=== PATIENT | female | born 1950 | race Caucasian/White ===

== ENCOUNTER → 2018-05-05 | Outpatient (CLI) | payer BC, MEDICARE | LOC: M ADAMS 08:18 | DX: I50.42 Chronic combined systolic (congestive) and diastolic (congestive) heart failure (principal); I48.0 Paroxysmal atrial fibrillation; E11.9 Type 2 diabetes mellitus without complications; R25.2 Cramp and spasm; Z79.899 Other long term (current) drug therapy | CPT/HCPCS: 83735 ==

== ENCOUNTER → 2018-05-05 | Outpatient (REF) | payer MEDICARE ==
[2018-05-05 12:40] LABS: BASO % 0.5 % (0.0-1.0); EOS # 0.5 10^3/uL (0.0-0.50); EOS % 7.2 % (0.0-3.0); HEMATOCRIT 36.2 % (36.0-47.0); HEMOGLOBIN 11.7 g/dl (12.0-15.5); IMMATURE GRANULOCYTE # 0.1 10^3/uL (0-0); IMMATURE GRANULOCYTE % 1.1 % (0-3.0); LYMPH # 0.9 10^3/uL (1.5-4.5); LYMPH % 13.8 % (24.0-44.0); MEAN CORPUSCULAR HEMOGLOBIN 31.2 pg (27.0-33.0); MEAN CORPUSCULAR HGB CONC 32.3 g/dl (32.0-36.5); MEAN CORPUSCULAR VOLUME 96.5 fl (80.0-96.0); MONO # 0.7 10^3/uL (0.0-0.8); MONO % 10.8 % (0.0-5.0); NEUTROPHILS # 4.3 10^3/uL (1.8-7.7); NEUTROPHILS % 66.6 % (36.0-66.0); PLATELET COUNT, AUTOMATED 203 10^3/uL (150-450); RED BLOOD COUNT 3.75 10^6/uL (4.00-5.40); RED CELL DISTRIBUTION WIDTH 14.9 % (11.5-14.5); WHITE BLOOD COUNT 6.4 10^3/uL (4.0-10.0)
[2018-05-05 12:53] LABS: TOTAL 25(OH) VITAMIN D 11.4 NG/ML (30.0-100.0)
[2018-05-05 13:19] LABS: ALBUMIN 3.2 GM/DL (3.2-5.2); ALBUMIN/GLOBULIN RATIO 0.64 (1.00-1.93); ALKALINE PHOSPHATASE 266 U/L (45-117); ALT/SGPT 42 U/L (12-78); ANION GAP 12 MEQ/L (8-16); AST/SGOT 73 U/L (7-37); BILIRUBIN,TOTAL 0.5 MG/DL (0.2-1.0); BLOOD UREA NITROGEN 66 MG/DL (7-18); CALCIUM LEVEL 10.5 MG/DL (8.8-10.2); CARBON DIOXIDE LEVEL 23 MEQ/L (21-32); CHLORIDE LEVEL 109 MEQ/L (98-107); CREATININE FOR GFR 2.15 MG/DL (0.55-1.30); FREE T4 1.06 NG/DL (0.76-1.46); GLOMERULAR FILTRATION RATE 24.3 (>45); GLUCOSE, FASTING 121 MG/DL (70-100); NT-PRO BNP 510 PG/ML (<125); POTASSIUM SERUM 4.2 MEQ/L (3.5-5.1); SODIUM LEVEL 144 MEQ/L (136-145); TOTAL PROTEIN 8.2 GM/DL (6.4-8.2)
[2018-05-05 15:37] LABS: ESTIMATED AVERAGE GLUCOSE 114 MG/DL (60-110); HEMOGLOBIN A1c 5.6 %
[2018-05-05 20:11] LABS: APPEARANCE, URINE HAZY (CLEAR); BACTERIA, URINE AUTO 1+ (NEGATIVE); BILIRUBIN, URINE AUTO NEGATIVE (NEGATIVE); BLOOD, URINE BLOOD 1+ (NEGATIVE); COLOR, URINE YELLOW (YELLOW); GLUCOSE, URINE (UA) AUTO NEGATIVE (NEGATIVE); KETONE, URINE AUTO NEGATIVE (NEGATIVE); LEUKOCYTE ESTERASE, URINE AUTO 1+ (NEGATIVE); MUCUS, URINE SMALL (NEGATIVE); NITRITE, URINE AUTO NEGATIVE (NEGATIVE); PROTEIN, URINE AUTO 2+ mg/dL (NEGATIVE); RBC, URINE AUTO 1 /HPF (0-3); SPECIFIC GRAVITY URINE AUTO 1.013 (1.002-1.035); SQUAMOUS EPITHELIAL CELL UR AU 1 /HPF (0-6); UROBILINOGEN, URINE AUTO 0.2 mg/dL (0.0-2.0); WBC, URINE AUTO 48 /HPF (0-3)
== END ==
LOC: M SFHCADAM 08:24
DX: R25.2 Cramp and spasm (principal); E11.9 Type 2 diabetes mellitus without complications; I50.42 Chronic combined systolic (congestive) and diastolic (congestive) heart failure; I48.0 Paroxysmal atrial fibrillation

== ENCOUNTER → 2018-06-01 | Outpatient (REF) | payer MEDICARE ==
[2018-06-01 20:21] LABS: INR 2.62; PROTHROMBIN TIME 28.6 SECONDS (12.1-14.4)
== END ==
LOC: M LAB REF 19:05
DX: I48.0 Paroxysmal atrial fibrillation (principal)
CPT/HCPCS: 85610

== ENCOUNTER → 2018-06-28 | Outpatient (CLI) | payer MEDICARE | LOC: M ADAMS 15:59 | DX: K80.00 Calculus of gallbladder with acute cholecystitis without obstruction (principal); K43.9 Ventral hernia without obstruction or gangrene | CPT/HCPCS: 74018 ==

== ENCOUNTER 2018-06-29 12:45 | Emergency (ER) | payer MEDICARE ==
[2018-06-29 14:19] LABS: BASO % 0.3 % (0.0-1.0); EOS # 0.4 10^3/uL (0.0-0.50); EOS % 5.7 % (0.0-3.0); HEMATOCRIT 31.7 % (36.0-47.0); HEMOGLOBIN 10.3 g/dl (12.0-15.5); IMMATURE GRANULOCYTE % 0.6 % (0-3.0); LYMPH # 0.9 10^3/uL (1.5-4.5); LYMPH % 13.7 % (24.0-44.0); MEAN CORPUSCULAR HEMOGLOBIN 30.7 pg (27.0-33.0); MEAN CORPUSCULAR HGB CONC 32.5 g/dl (32.0-36.5); MEAN CORPUSCULAR VOLUME 94.3 fl (80.0-96.0); MONO # 0.6 10^3/uL (0.0-0.8); MONO % 9.4 % (0.0-5.0); NEUTROPHILS # 4.5 10^3/uL (1.8-7.7); NEUTROPHILS % 70.3 % (36.0-66.0); PLATELET COUNT, AUTOMATED 173 10^3/uL (150-450); RED BLOOD COUNT 3.36 10^6/uL (4.00-5.40); RED CELL DISTRIBUTION WIDTH 14.6 % (11.5-14.5); WHITE BLOOD COUNT 6.4 10^3/uL (4.0-10.0)
[2018-06-29] MEDS: NS 1,000 ML IV (14:32)
[2018-06-29] MEDS: ONDANSETRON 4MG/2ML VIAL (J2405) IV (14:32)
[2018-06-29] MEDS: MORPHINE 4 MG/ML 1ML VIAL/SYRINGE (J2270) IV (14:33)
[2018-06-29 14:39] LABS: PROTHROMBIN TIME 54.2 SECONDS (12.1-14.4)
[2018-06-29 15:03] LABS: LACTIC ACID SEPSIS PROTOCOL 1.9 MMOL/L (0.4-2.0)
[2018-06-29 15:10] LABS: INR 5.87
[2018-06-29 15:54] LABS: ALBUMIN 2.9 GM/DL (3.2-5.2); ALBUMIN/GLOBULIN RATIO 0.63 (1.00-1.93); ALKALINE PHOSPHATASE 296 U/L (45-117); ALT/SGPT 43 U/L (12-78); ANION GAP 10 MEQ/L (8-16); AST/SGOT 58 U/L (7-37); BILIRUBIN,DIRECT 0.2 MG/DL (0.0-0.2); BILIRUBIN,TOTAL 0.4 MG/DL (0.2-1.0); BLOOD UREA NITROGEN 74 MG/DL (7-18); CALCIUM LEVEL 9.8 MG/DL (8.8-10.2); CARBON DIOXIDE LEVEL 21 MEQ/L (21-32); CHLORIDE LEVEL 114 MEQ/L (98-107); CREATININE FOR GFR 2.52 MG/DL (0.55-1.30); GLOMERULAR FILTRATION RATE 20.3 (>45); GLUCOSE, FASTING 143 MG/DL (70-100); LIPASE 687 U/L (73-393); POTASSIUM SERUM 3.7 MEQ/L (3.5-5.1); SODIUM LEVEL 145 MEQ/L (136-145); TOTAL PROTEIN 7.5 GM/DL (6.4-8.2)
== END 2018-06-29 17:58 | disposition home or self-care (01) ==
LOC: M ED 12:45
DX: K80.20 Calculus of gallbladder without cholecystitis without obstruction (principal); R10.9 Unspecified abdominal pain; K43.2 Incisional hernia without obstruction or gangrene; E11.9 Type 2 diabetes mellitus without complications; J45.909 Unspecified asthma, uncomplicated; N18.4 Chronic kidney disease, stage 4 (severe); Z88.7 Allergy status to serum and vaccine; Z91.048 Other nonmedicinal substance allergy status; Z91.041 Radiographic dye allergy status; Z79.899 Other long term (current) drug therapy; Z79.82 Long term (current) use of aspirin; Z79.4 Long term (current) use of insulin
CPT/HCPCS: J2270

== ENCOUNTER 2018-07-06 17:53 | Inpatient (IN) | payer MEDICARE ==
[2018-07-06] MEDS: NS 500 ML IV (18:35)
[2018-07-06 18:36] LABS: BASO # 0.1 10^3/uL (0.0-0.2); BASO % 0.5 % (0.0-1.0); EOS # 0.6 10^3/uL (0.0-0.50); EOS % 5.4 % (0.0-3.0); HEMATOCRIT 25.2 % (36.0-47.0); HEMOGLOBIN 8.1 g/dl (12.0-15.5); IMMATURE GRANULOCYTE % 4.4 % (0-3.0); LYMPH # 1.4 10^3/uL (1.5-4.5); LYMPH % 12.6 % (24.0-44.0); MEAN CORPUSCULAR HEMOGLOBIN 30.7 pg (27.0-33.0); MEAN CORPUSCULAR HGB CONC 32.1 g/dl (32.0-36.5); MEAN CORPUSCULAR VOLUME 95.5 fl (80.0-96.0); MONO % 9.2 % (0.0-5.0); NEUTROPHILS # 7.7 10^3/uL (1.8-7.7); NEUTROPHILS % 67.9 % (36.0-66.0); PLATELET COUNT, AUTOMATED 224 10^3/uL (150-450); RED BLOOD COUNT 2.64 10^6/uL (4.00-5.40); RED CELL DISTRIBUTION WIDTH 15.6 % (11.5-14.5); WHITE BLOOD COUNT 11.3 10^3/uL (4.0-10.0)
[2018-07-06 18:44] LABS: INR 2.56; PROTHROMBIN TIME 28.1 SECONDS (12.1-14.4)
[2018-07-06 18:45] LABS: PARTIAL THROMBOPLASTIN TIME 56.2 SECONDS (25.4-37.6)
[2018-07-06 18:59] LABS: LACTIC ACID SEPSIS PROTOCOL 1.1 MMOL/L (0.4-2.0)
[2018-07-06] MEDS: PHYTONADIONE 10MG/ML INJECTION (J3430) SC (19:50)
[2018-07-06 20:42] LABS: ALT/SGPT 50 U/L (12-78); BILIRUBIN,TOTAL 0.3 MG/DL (0.2-1.0); CALCIUM LEVEL 9.1 MG/DL (8.8-10.2); CARBON DIOXIDE LEVEL 22 MEQ/L (21-32); GLUCOSE, FASTING 98 MG/DL (70-100); SODIUM LEVEL 144 MEQ/L (136-145); TOTAL PROTEIN 7.3 GM/DL (6.4-8.2); TROPONIN I < 0.02 NG/ML (< 0.10)
[2018-07-06] MEDS ORDERED: ONDANSETRON 4MG/2ML VIAL (J2405) IV (20:45)
[2018-07-06 20:57] LABS: BLOOD UREA NITROGEN 90 MG/DL (7-18); CHLORIDE LEVEL 114 MEQ/L (98-107); CREATININE FOR GFR 2.24 MG/DL (0.55-1.30); GLOMERULAR FILTRATION RATE 23.2 (>45)
[2018-07-06 20:58] LABS: ANION GAP 8 MEQ/L (8-16); AST/SGOT 101 U/L (7-37); CPK CREATINE PHOSPHOKINASE 156 U/L (26-192); MB/CK RELATIVE INDEX 0.12 (< OR =4)
[2018-07-06 20:59] LABS: ALBUMIN 2.9 GM/DL (3.2-5.2); ALBUMIN/GLOBULIN RATIO 0.66 (1.00-1.93); ALKALINE PHOSPHATASE 279 U/L (45-117); AMYLASE 122 U/L (25-115); BILIRUBIN,DIRECT < 0.1 MG/DL (0.0-0.2); LIPASE 1031 U/L (73-393)
[2018-07-06] MEDS: GABAPENTIN 300 MG CAP PO (22:56)
[2018-07-06] MEDS: CARVedilol 6.25 MG TAB PO (22:57)
[2018-07-06] MEDS: ACETAMINOPHEN 500 MG TAB PO (22:57)
[2018-07-06] MEDS: NS 1,000 ML IV (22:58)
[2018-07-06] MEDS: PANTOPRAZOLE 40MG INJ (PROTONIX) (C9113) IV (22:58)
[2018-07-06 23:20] LABS: TYPE AND SCREEN 1 1
[2018-07-07] MEDS ORDERED: FLUBLOK(EGG FREE)(QUAD)INFLUENZA VACC 0.5ML SYRINGE (90682)18YRS&OLDER IM (03:00)
[2018-07-07 04:54] LABS: HEMATOCRIT 21.5 % (36.0-47.0); MEAN CORPUSCULAR HEMOGLOBIN 30.2 pg (27.0-33.0); MEAN CORPUSCULAR HGB CONC 31.2 g/dl (32.0-36.5); MEAN CORPUSCULAR VOLUME 96.8 fl (80.0-96.0); PLATELET COUNT, AUTOMATED 186 10^3/uL (150-450); RED BLOOD COUNT 2.22 10^6/uL (4.00-5.40); RED CELL DISTRIBUTION WIDTH 15.7 % (11.5-14.5); WHITE BLOOD COUNT 9.9 10^3/uL (4.0-10.0)
[2018-07-07 04:57] LABS: HEMOGLOBIN 6.7 g/dl (12.0-15.5)
[2018-07-07 05:07] LABS: INR 1.86; PROTHROMBIN TIME 21.8 SECONDS (12.1-14.4)
[2018-07-07 05:10] LABS: ANION GAP 7 MEQ/L (8-16); BLOOD UREA NITROGEN 85 MG/DL (7-18); CALCIUM LEVEL 8.6 MG/DL (8.8-10.2); CARBON DIOXIDE LEVEL 22 MEQ/L (21-32); CHLORIDE LEVEL 118 MEQ/L (98-107); CREATININE FOR GFR 2.14 MG/DL (0.55-1.30); GLOMERULAR FILTRATION RATE 24.5 (>45); GLUCOSE, FASTING 91 MG/DL (70-100); POTASSIUM SERUM 4.1 MEQ/L (3.5-5.1); SODIUM LEVEL 147 MEQ/L (136-145)
[2018-07-07 05:54] LABS: IMMEDIATE SPIN CROSSMATCH 1 1
[2018-07-07 09:06] LABS: HEMATOCRIT 21.9 % (36.0-47.0); HEMOGLOBIN 7.2 g/dl (12.0-15.5)
[2018-07-07] MEDS: FUROSEMIDE 40 MG/4 ML VIAL (J1940) IV (09:43)
[2018-07-07] MEDS: ATORVASTATIN 20 MG TAB PO (09:50)
[2018-07-07] MEDS: CARVedilol 6.25 MG TAB PO ×2 (09:51→20:09)
[2018-07-07] MEDS: MONTELUKAST 10 MG TAB PO (09:51)
[2018-07-07 10:44] LABS: IMMEDIATE SPIN CROSSMATCH 1 1
[2018-07-07] MEDS: ACETAMINOPHEN 500 MG TAB PO ×2 (12:12→19:54)
[2018-07-07 13:51] LABS: HEMATOCRIT 27.3 % (36.0-47.0); HEMOGLOBIN 8.9 g/dl (12.0-15.5)
[2018-07-07] MEDS ORDERED: PERCOCET 5MG/325MG TAB PO (17:15)
[2018-07-07] MEDS: NS 1,000 ML IV (19:54)
[2018-07-07] MEDS: DOCUSATE SODIUM 100 MG CAP PO (20:08)
[2018-07-07] MEDS: GABAPENTIN 300 MG CAP PO (20:10)
[2018-07-07] MEDS: PANTOPRAZOLE 40MG INJ (PROTONIX) (C9113) IV (20:11)
[2018-07-07 20:17] LABS: HEMATOCRIT 25.6 % (36.0-47.0); HEMOGLOBIN 8.4 g/dl (12.0-15.5)
[2018-07-08 04:58] LABS: HEMOGLOBIN 7.9 g/dl (12.0-15.5)
[2018-07-08] MEDS: MONTELUKAST 10 MG TAB PO (08:42)
[2018-07-08] MEDS: DOCUSATE SODIUM 100 MG CAP PO ×2 (08:42→20:40)
[2018-07-08] MEDS: CARVedilol 6.25 MG TAB PO ×2 (08:43→20:40)
[2018-07-08] MEDS: ATORVASTATIN 20 MG TAB PO (08:43)
[2018-07-08] MEDS: ACETAMINOPHEN 500 MG TAB PO ×3 (08:44→18:00)
[2018-07-08] MEDS ORDERED: KCL 20MEQ IN 0.45NS 1000ML 1,000 ML IV (09:15)
[2018-07-08 09:49] LABS: HEMATOCRIT 27.6 % (36.0-47.0)
[2018-07-08] MEDS: GOLYTELY SOLN 4000 ML BTL PO (12:53)
[2018-07-08 17:33] LABS: HEMATOCRIT 26.7 % (36.0-47.0); MEAN CORPUSCULAR HEMOGLOBIN 31.4 pg (27.0-33.0); MEAN CORPUSCULAR HGB CONC 33.7 g/dl (32.0-36.5); PLATELET COUNT, AUTOMATED 152 10^3/uL (150-450); RED BLOOD COUNT 2.87 10^6/uL (4.00-5.40); RED CELL DISTRIBUTION WIDTH 16.2 % (11.5-14.5); WHITE BLOOD COUNT 8.2 10^3/uL (4.0-10.0)
[2018-07-08] MEDS: NS 1,000 ML IV (17:59)
[2018-07-08] MEDS: GABAPENTIN 300 MG CAP PO (20:39)
[2018-07-08] MEDS: PANTOPRAZOLE 40MG INJ (PROTONIX) (C9113) IV (20:39)
[2018-07-09] MEDS: ACETAMINOPHEN 500 MG TAB PO ×4 (03:52→18:15)
[2018-07-09 05:01] LABS: HEMATOCRIT 24.6 % (36.0-47.0); MEAN CORPUSCULAR HGB CONC 32.5 g/dl (32.0-36.5); MEAN CORPUSCULAR VOLUME 95.3 fl (80.0-96.0); PLATELET COUNT, AUTOMATED 147 10^3/uL (150-450); RED BLOOD COUNT 2.58 10^6/uL (4.00-5.40); RED CELL DISTRIBUTION WIDTH 16.5 % (11.5-14.5); WHITE BLOOD COUNT 6.2 10^3/uL (4.0-10.0)
[2018-07-09 05:26] LABS: ANION GAP 11 MEQ/L (8-16); BLOOD UREA NITROGEN 51 MG/DL (7-18); CALCIUM LEVEL 7.8 MG/DL (8.8-10.2); CARBON DIOXIDE LEVEL 19 MEQ/L (21-32); CHLORIDE LEVEL 120 MEQ/L (98-107); CREATININE FOR GFR 1.77 MG/DL (0.55-1.30); GLOMERULAR FILTRATION RATE 30.5 (>45); GLUCOSE, FASTING 91 MG/DL (70-100); POTASSIUM SERUM 3.9 MEQ/L (3.5-5.1); SODIUM LEVEL 150 MEQ/L (136-145)
[2018-07-09] MEDS ORDERED: PROPOFOL 200 MG/20 ML VIAL As Ordered (07:20)
[2018-07-09] MEDS ORDERED: LIDOCAINE 2% INJ 100 MG/5 ML SDV (FOR ANES.) As Ordered (07:20)
[2018-07-09] MEDS ORDERED: fentaNYL 100 MCG/2 ML INJECTION (J3010) As Ordered (07:20)
[2018-07-09] MEDS ORDERED: ONDANSETRON 4MG/2ML VIAL (J2405) As Ordered (08:02)
[2018-07-09] MEDS ORDERED: ePHEDrine SULFATE 25 MG/5 ML(5MG/ML) SYRINGE As Ordered (08:06)
[2018-07-09 08:35] LABS: BEDSIDE GLUCOSE 103 MG/DL (80-115)
[2018-07-09] MEDS: DOCUSATE SODIUM 100 MG CAP PO ×2 (09:00→10:50)
[2018-07-09] MEDS: CARVedilol 6.25 MG TAB PO ×2 (09:19→20:06)
[2018-07-09] MEDS: D5W/0.2% SODIUM CHLORIDE 1,000 ML IV (09:19)
[2018-07-09] MEDS: ATORVASTATIN 20 MG TAB PO (09:19)
[2018-07-09] MEDS: ALBUTEROL SULFATE 2.5 MG/0.5 ML INH NEB SOLN INH (10:35)
[2018-07-09] MEDS: MONTELUKAST 10 MG TAB PO (10:49)
[2018-07-09 15:08] LABS: HEMATOCRIT 24.3 % (36.0-47.0); MEAN CORPUSCULAR HEMOGLOBIN 31.4 pg (27.0-33.0); MEAN CORPUSCULAR HGB CONC 32.9 g/dl (32.0-36.5); MEAN CORPUSCULAR VOLUME 95.3 fl (80.0-96.0); PLATELET COUNT, AUTOMATED 161 10^3/uL (150-450); RED BLOOD COUNT 2.55 10^6/uL (4.00-5.40); WHITE BLOOD COUNT 5.5 10^3/uL (4.0-10.0)
[2018-07-09 15:27] LABS: ANION GAP 12 MEQ/L (8-16); BLOOD UREA NITROGEN 46 MG/DL (7-18); CALCIUM LEVEL 7.9 MG/DL (8.8-10.2); CARBON DIOXIDE LEVEL 17 MEQ/L (21-32); CHLORIDE LEVEL 120 MEQ/L (98-107); CREATININE FOR GFR 1.85 MG/DL (0.55-1.30); GLOMERULAR FILTRATION RATE 28.9 (>45); GLUCOSE, FASTING 144 MG/DL (70-100); LIPASE 1188 U/L (73-393); POTASSIUM SERUM 3.9 MEQ/L (3.5-5.1); SODIUM LEVEL 149 MEQ/L (136-145)
[2018-07-09] MEDS: FUROSEMIDE 40 MG/4 ML VIAL (J1940) IV (17:08)
[2018-07-09] MEDS: PANTOPRAZOLE 40MG INJ (PROTONIX) (C9113) IV (20:06)
[2018-07-09] MEDS: GABAPENTIN 300 MG CAP PO (20:06)
[2018-07-10] MEDS: ACETAMINOPHEN 500 MG TAB PO ×5 (00:10→23:37)
[2018-07-10 04:51] LABS: HEMATOCRIT 24.2 % (36.0-47.0); HEMOGLOBIN 7.8 g/dl (12.0-15.5); MEAN CORPUSCULAR HEMOGLOBIN 30.7 pg (27.0-33.0); MEAN CORPUSCULAR HGB CONC 32.2 g/dl (32.0-36.5); MEAN CORPUSCULAR VOLUME 95.3 fl (80.0-96.0); PLATELET COUNT, AUTOMATED 151 10^3/uL (150-450); RED BLOOD COUNT 2.54 10^6/uL (4.00-5.40); RED CELL DISTRIBUTION WIDTH 16.6 % (11.5-14.5); WHITE BLOOD COUNT 6.3 10^3/uL (4.0-10.0)
[2018-07-10 05:17] LABS: ANION GAP 11 MEQ/L (8-16); BLOOD UREA NITROGEN 44 MG/DL (7-18); CALCIUM LEVEL 7.7 MG/DL (8.8-10.2); CARBON DIOXIDE LEVEL 19 MEQ/L (21-32); CHLORIDE LEVEL 116 MEQ/L (98-107); CREATININE FOR GFR 2.04 MG/DL (0.55-1.30); GLOMERULAR FILTRATION RATE 25.9 (>45); GLUCOSE, FASTING 105 MG/DL (70-100); POTASSIUM SERUM 3.5 MEQ/L (3.5-5.1); SODIUM LEVEL 146 MEQ/L (136-145)
[2018-07-10] MEDS: DOCUSATE SODIUM 100 MG CAP PO ×2 (08:20→21:14)
[2018-07-10] MEDS: MONTELUKAST 10 MG TAB PO (08:20)
[2018-07-10] MEDS: ATORVASTATIN 20 MG TAB PO (08:21)
[2018-07-10] MEDS: CARVedilol 6.25 MG TAB PO ×2 (08:22→21:13)
[2018-07-10] MEDS: PANTOPRAZOLE 40MG TAB (PROTONIX) PO ×2 (11:56→21:14)
[2018-07-10] MEDS: SUCRALFATE 1 GM TAB PO ×3 (11:56→21:13)
[2018-07-10 13:15] LABS: IMMEDIATE SPIN CROSSMATCH 1 1
[2018-07-10] MEDS: WARFARIN SOD 5 MG TAB PO (16:57)
[2018-07-10] MEDS: TOLTERODINE TARTRATE 2 MG LA CAP (DETROL LA) PO (16:57)
[2018-07-10] MEDS: FUROSEMIDE 40 MG TAB PO (16:58)
[2018-07-10] MEDS: GABAPENTIN 300 MG CAP PO (21:14)
[2018-07-11] MEDS: ACETAMINOPHEN 500 MG TAB PO ×2 (05:27→12:00)
[2018-07-11 06:49] LABS: HEMATOCRIT 27.9 % (36.0-47.0); HEMOGLOBIN 9.2 g/dl (12.0-15.5); MEAN CORPUSCULAR HEMOGLOBIN 31.3 pg (27.0-33.0); MEAN CORPUSCULAR VOLUME 94.9 fl (80.0-96.0); PLATELET COUNT, AUTOMATED 171 10^3/uL (150-450); RED BLOOD COUNT 2.94 10^6/uL (4.00-5.40); RED CELL DISTRIBUTION WIDTH 16.6 % (11.5-14.5); WHITE BLOOD COUNT 7.6 10^3/uL (4.0-10.0)
[2018-07-11 07:00] LABS: INR 1.08; PROTHROMBIN TIME 14.2 SECONDS (12.1-14.4)
[2018-07-11 07:09] LABS: ALBUMIN 2.6 GM/DL (3.2-5.2); ANION GAP 10 MEQ/L (8-16); BLOOD UREA NITROGEN 41 MG/DL (7-18); CALCIUM LEVEL 7.7 MG/DL (8.8-10.2); CARBON DIOXIDE LEVEL 20 MEQ/L (21-32); CHLORIDE LEVEL 115 MEQ/L (98-107); CREATININE FOR GFR 1.99 MG/DL (0.55-1.30); GLOMERULAR FILTRATION RATE 26.6 (>45); GLUCOSE, FASTING 102 MG/DL (70-100); POTASSIUM SERUM 3.5 MEQ/L (3.5-5.1); SODIUM LEVEL 145 MEQ/L (136-145)
[2018-07-11] MEDS: PANTOPRAZOLE 40MG TAB (PROTONIX) PO (08:48)
[2018-07-11] MEDS: FUROSEMIDE 40 MG TAB PO (08:48)
[2018-07-11] MEDS: SUCRALFATE 1 GM TAB PO ×2 (08:48→12:44)
[2018-07-11] MEDS: ATORVASTATIN 20 MG TAB PO (08:48)
[2018-07-11] MEDS: CARVedilol 6.25 MG TAB PO (08:49)
[2018-07-11] MEDS: TOLTERODINE TARTRATE 2 MG LA CAP (DETROL LA) PO (08:49)
[2018-07-11] MEDS: DOCUSATE SODIUM 100 MG CAP PO (08:49)
[2018-07-11] MEDS: MONTELUKAST 10 MG TAB PO (08:50)
[2018-07-11] MEDS: FLUBLOK(EGG FREE)(QUAD)INFLUENZA VACC 0.5ML SYRINGE (90682)18YRS&OLDER IM (08:55)
== END 2018-07-11 14:27 | disposition home or self-care (01) | DRG 813 ==
LOC: M MSPAV 07-10 15:03 → M ED 17:53 → M ED INP 20:41 → M ICU 22:26
PROVIDERS: Pediatrics
PROC: 0DB78ZX Excision of Stomach, Pylorus, Via Natural or Artificial Opening Endoscopic, Diagnostic (ICD-10-PCS; principal; 2018-07-09 07:30)
PROC: 0DJD8ZZ Inspection of Lower Intestinal Tract, Via Natural or Artificial Opening Endoscopic (ICD-10-PCS; 2018-07-09 07:30)
PROC: 30233K1 Transfusion of Nonautologous Frozen Plasma into Peripheral Vein, Percutaneous Approach (ICD-10-PCS; 2018-07-09 07:38)
PROC: 30233N1 Transfusion of Nonautologous Red Blood Cells into Peripheral Vein, Percutaneous Approach (ICD-10-PCS; 2018-07-09 07:38)
DX: D68.32 Hemorrhagic disorder due to extrinsic circulating anticoagulants (principal); K25.4 Chronic or unspecified gastric ulcer with hemorrhage; I42.0 Dilated cardiomyopathy; I50.42 Chronic combined systolic (congestive) and diastolic (congestive) heart failure; N18.4 Chronic kidney disease, stage 4 (severe); I13.0 Hypertensive heart and chronic kidney disease with heart failure and stage 1 through stage 4 chronic kidney disease, or unspecified chronic kidney disease; E87.0 Hyperosmolality and hypernatremia; D62 Acute posthemorrhagic anemia; I48.2 Chronic atrial fibrillation; E11.22 Type 2 diabetes mellitus with diabetic chronic kidney disease; G47.33 Obstructive sleep apnea (adult) (pediatric); K57.30 Diverticulosis of large intestine without perforation or abscess without bleeding; H40.9 Unspecified glaucoma; K64.9 Unspecified hemorrhoids; K29.70 Gastritis, unspecified, without bleeding; E55.9 Vitamin D deficiency, unspecified; N32.81 Overactive bladder; Z79.82 Long term (current) use of aspirin; Z79.4 Long term (current) use of insulin; Z79.899 Other long term (current) drug therapy; Z91.041 Radiographic dye allergy status; Z91.048 Other nonmedicinal substance allergy status; Z95.0 Presence of cardiac pacemaker

== ENCOUNTER → 2018-07-14 | Outpatient (REF) | payer MEDICARE ==
[2018-07-14 19:46] LABS: HEMATOCRIT 32.8 % (36.0-47.0); HEMOGLOBIN 10.3 g/dl (12.0-15.5); MEAN CORPUSCULAR HEMOGLOBIN 30.8 pg (27.0-33.0); MEAN CORPUSCULAR HGB CONC 31.4 g/dl (32.0-36.5); MEAN CORPUSCULAR VOLUME 98.2 fl (80.0-96.0); PLATELET COUNT, AUTOMATED 225 10^3/uL (150-450); RED BLOOD COUNT 3.34 10^6/uL (4.00-5.40); RED CELL DISTRIBUTION WIDTH 16.6 % (11.5-14.5); WHITE BLOOD COUNT 8.1 10^3/uL (4.0-10.0)
[2018-07-14 19:51] LABS: ANION GAP 12 MEQ/L (8-16); BLOOD UREA NITROGEN 34 MG/DL (7-18); CALCIUM LEVEL 8.3 MG/DL (8.8-10.2); CARBON DIOXIDE LEVEL 23 MEQ/L (21-32); CHLORIDE LEVEL 112 MEQ/L (98-107); CREATININE FOR GFR 2.05 MG/DL (0.55-1.30); GLOMERULAR FILTRATION RATE 25.7 (>45); GLUCOSE, FASTING 96 MG/DL (70-100); POTASSIUM SERUM 3.8 MEQ/L (3.5-5.1); SODIUM LEVEL 147 MEQ/L (136-145)
[2018-07-14 19:58] LABS: INR 1.37; PROTHROMBIN TIME 17.1 SECONDS (12.1-14.4)
== END ==
LOC: M LABDRWAD 19:06
DX: K25.0 Acute gastric ulcer with hemorrhage (principal); N18.4 Chronic kidney disease, stage 4 (severe); I48.0 Paroxysmal atrial fibrillation; Z79.01 Long term (current) use of anticoagulants
CPT/HCPCS: 80048

== ENCOUNTER → 2018-07-20 | Outpatient (REF) | payer MEDICARE ==
[2018-07-20 12:59] LABS: INR 3.37; PROTHROMBIN TIME 34.9 SECONDS (12.1-14.4)
== END ==
LOC: M LABDRWAD 12:10
DX: I48.0 Paroxysmal atrial fibrillation (principal)
CPT/HCPCS: 85610

== ENCOUNTER → 2018-08-02 | Outpatient (REF) | payer MEDICARE ==
[2018-08-02 13:19] LABS: INR 3.38
== END ==
LOC: M LABDRWAD 12:30
DX: I48.0 Paroxysmal atrial fibrillation (principal)
CPT/HCPCS: 85610

== ENCOUNTER → 2018-10-06 | Outpatient (REF) | payer MEDICARE ==
[~2018-10-06] MED LIST: ACET-683 PO; ALBU83IN INH; ALBU83IN NEB; ASPI1TAB PO; ASPI81TAEC PO; ATOR40TA75; ATOR40TA75 PO; CARV6.25 PO; COLA100C5 PO; DETR2CAP PO; FLON1SPR; FLON1SPR NARES; FURO40TA2; FURO40TA2 PO; INSULANT SC; INSUR50VL SC; MONT10TA2; MONT10TA2 PO; NEUR300C PO; NORC1TAB4 PO; PANT40TA3 PO; TYLE500T78 PO; VITA50005; VITA50005 PO; WARF-23 PO
[2018-10-06 19:24] LABS: ALBUMIN 3.2 GM/DL (3.2-5.2); BILIRUBIN,TOTAL 0.4 MG/DL (0.2-1.0); CALCIUM LEVEL 10.8 MG/DL (8.8-10.2); CREATININE FOR GFR 2.16 MG/DL (0.55-1.30); GLOMERULAR FILTRATION RATE 24.2 (>45); POTASSIUM SERUM 4.2 MEQ/L (3.5-5.1); TOTAL PROTEIN 7.5 GM/DL (6.4-8.2)
[2018-10-06 19:25] LABS: HEMATOCRIT 36.6 % (36.0-47.0); HEMOGLOBIN 11.3 g/dl (12.0-15.5); MEAN CORPUSCULAR HEMOGLOBIN 29.4 pg (27.0-33.0); MEAN CORPUSCULAR HGB CONC 30.9 g/dl (32.0-36.5); MEAN CORPUSCULAR VOLUME 95.1 fl (80.0-96.0); PLATELET COUNT, AUTOMATED 195 10^3/uL (150-450); RED BLOOD COUNT 3.85 10^6/uL (4.00-5.40); WHITE BLOOD COUNT 8.1 10^3/uL (4.0-10.0)
[2018-10-06 19:37] LABS: HEMOGLOBIN A1c 6.5 %
[2018-10-06 20:03] LABS: CREATININE, URINE 28.6 MG/DL
== END ==
LOC: M SFHCADAM 14:14
PROVIDERS: ATTEND Physician Assistant
DX: D50.0 Iron deficiency anemia secondary to blood loss (chronic) (principal); N18.4 Chronic kidney disease, stage 4 (severe); E11.22 Type 2 diabetes mellitus with diabetic chronic kidney disease

== ENCOUNTER → 2018-10-19 | Outpatient (CLI) | payer MEDICARE ==
[~2018-10-19] MED LIST changes: +AMMO12CR4 TOP; +COUM2.5T17 PO
--- NOTE | 2018-10-19 19:24 | REPVR ---
EXAM: CT Abdomen and Pelvis Without Contrast EXAM DATE/TIME: 10/19/2018 6:28 PM CLINICAL HISTORY: 68 years old, female; Pain; Abdominal pain; Patient HX: Bb markers placed on pannicula at [facility]; Additional info: Abd panniculus TECHNIQUE: Axial computed tomography images of the abdomen and pelvis without contrast. All CT scans at this facility use at least one of these dose optimization techniques: automated exposure control; mA and/or kV adjustment per patient size (includes targeted exams where dose is matched to clinical indication); or iterative reconstruction. Coronal and sagittal reformatted images were created and reviewed. COMPARISON: CT ABD PELVIS W/O CONTRAST 06/29/2018 3:59 PM FINDINGS: Lower thorax: There is bibasilar compressive atelectasis. ABDOMEN: Liver: Examination of the liver demonstrates a lobular surface contour, and enlargement of the left and caudate lobes, findings which may be consistent with cirrhosis. Clinical correlation needed. Gallbladder and bile ducts: Cholelithiasis. Pancreas: Normal. No ductal dilation. Spleen: There is moderate nonspecific splenomegaly. Maximum splenic span is 15 cm. Adrenals: Normal. No mass. Kidneys and ureters: Stable 2.1 cm and 1.7 cm exophytic hyperdense lesions in the right kidney likely represent a proteinaceous cysts. Kidneys otherwise unremarkable. Stomach and bowel: Normal. No obstruction. No mucosal thickening. Appendix: No evidence of appendicitis. PELVIS: Bladder: Air within the urinary bladder may be iatrogenic. Clinical correlation to exclude infection suggested. Reproductive: Unremarkable as visualized. ABDOMEN and PELVIS: Intraperitoneal space: Normal. No free air. No significant fluid collection. Bones/joints: Slight anterolisthesis of L3 on L4. Severe central spinal stenosis at L3-4 and L4-5. Soft tissues: Inflammatory changes demonstrated in the soft tissues within the panniculus in the lower abdomen. Tortuous vascular structures demonstrated in the area of clinical concern may indicate thrombosed varicosities. There is soft tissue edema demonstrated in the flanks and buttock regions consistent with anasarca. Recanalized paraumbilical veins. Vasculature: The aorta demonstrates mild atherosclerotic calcification. Lymph nodes: Normal. No enlarged lymph nodes. IMPRESSION: 1. Inflammatory changes demonstrated in the soft tissues within the panniculus in the lower abdomen. Tortuous vascular structures demonstrated in the area of clinical concern may indicate thrombosed varicosities. 2. Anasarca. 3. Examination of the liver demonstrates a lobular surface contour, and enlargement of the left and caudate lobes, findings which may be consistent with cirrhosis. Clinical correlation needed. 4. There is moderate nonspecific splenomegaly. Maximum splenic span is 15 cm. 5. Cholelithiasis. 6. Stable hyperdense exophytic lesions right kidney likely represent complex cysts. Ultrasound correlation suggested if clinically desired in order to exclude solid processes. Electronically signed by: George Robin On 10/19/2018 19:24:14 PM
== END ==
LOC: M RAD 17:34
PROVIDERS: ATTEND Family Medicine
DX: R93.5 Abnormal findings on diagnostic imaging of other abdominal regions, including retroperitoneum (principal); R60.1 Generalized edema; R16.0 Hepatomegaly, not elsewhere classified; R16.1 Splenomegaly, not elsewhere classified; E65 Localized adiposity
CPT/HCPCS: 74176; G0463

== ENCOUNTER → 2018-10-22 | Outpatient (REF) | payer MEDICARE ==
[~2018-10-22] MED LIST changes: -AMMO12CR4 TOP; -COUM2.5T17 PO
[2018-10-22 19:30] LABS: FERRITIN 125 NG/ML (8-252); IRON (FE) 81 UG/DL (50-170); PERCENT SATURATION 28.5 % (13.2-45.0); TOTAL IRON BINDING CAPACITY 284 UG/DL (250-450)
[2018-10-25 09:46] LABS: HEPATITIS B SURFACE ANTIBODY NEGATIVE (POSITIVE)
[2018-10-25 09:57] LABS: HEPATITIS B SURFACE ANTIGEN NEGATIVE (NEGATIVE)
[2018-10-25 10:26] LABS: HEPATITIS B CORE ANTIBODY IGM NEGATIVE (NEGATIVE)
[2018-10-26 01:34] LABS: ANA (HEP2) Positive (.); ANTI-MITOCHONDRIAL ANTIBODY <20.0 Units (0.0-20.0); LIVER-KIDNEY MICROSOMAL ABY <20.1 Units (0.0-20.0)
== END ==
LOC: M SFHCADAM 14:03
PROVIDERS: ATTEND Family Medicine
DX: K74.60 Unspecified cirrhosis of liver (principal); K75.81 Nonalcoholic steatohepatitis (NASH)
CPT/HCPCS: 82105; 82728; 83550; 85046; 86038; 86255; 86376; 86705; 86706; 87340; G0472

== ENCOUNTER 2018-11-15 16:23 | Inpatient (IN) | payer MEDICARE ==
[~2018-11-15] VITALS: Ht 154.9 cm; Wt 117.0 kg
[~2018-11-15 16:23] MED LIST changes: +AMMO12CR4 TOP; +COUM2.5T17 PO
--- NOTE | 2018-11-15 17:30 | HPEPDOC ---
General Date of Admission Chief Complaint The patient is a 68-year-old female admitted with a reason for visit of Abdominal Venous Phlebitis. Home Medications Scheduled Ammonium Lactate (Ammonium Lactate) 12 % Cre, 1 DOSE TOP BID, (Reported) Atorvastatin Calcium (Atorvastatin Calcium) 40 Mg Tab, 40 MG PO DAILY, (Reported) Carvedilol (Carvedilol) 6.25 Mg Tab, 6.25 MG PO BID, (Reported) Docusate Sodium (Colace) 100 Mg Cap, 100 MG PO BID, (Reported) Ergocalciferol (Vitamin D) 50,000 Unit Cap, 50,000 UNIT PO 1XWK, (Reported) THURSDAY MORNINGS Fluticasone Propionate (Flonase Allergy Relief) 50 Mcg/Act Spr, 1 SPRAY NA DAILY, (Reported) Furosemide (Furosemide) 40 Mg Tab, 40 MG PO DAILY, (Reported) Gabapentin (Neurontin) 300 Mg Cap, 300 MG PO QHS, (Reported) Insulin (Humulin R U-500 (Concentr) 1 Units/0.002 Ml Inj, 1 DOSE SC DAILY, (Reported) PER SLIDING SCALE Insulin Glargine (Lantus) 1 Units/0.01 Ml Susp, 40 UNITS SC DAILY, (Reported) Montelukast Sodium (Montelukast Sodium) 10 Mg Tab, 10 MG PO DAILY, (Reported) Warfarin Sod (Warfarin Sodium) 5 Mg Tab, 5 MG PO QWEEK, (Reported) Thursday Warfarin Sod (Coumadin) 2.5 Mg Tab, 2.5 MG PO 6XWK, (Reported) Thursday, Thursday, Thursday and Thursday Scheduled PRN Acetaminophen (Tylenol Extra Strength) 500 Mg Tab, 1,000 MG PO BID PRN for PAIN, (Reported) Albuterol Sulfate (Albuterol Sulfate) 2.5 Mg/3 Ml Nebu, 2.5 MG INH Q4H PRN for SHORTNESS OF BREATH, (Reported) Allergies Coded Allergies: Contrast Media (Verified Allergy, Unknown, 11/05/18) kidney failure TAPE (Verified Allergy, Unknown, 11/05/18) redness, swelling Tetanus Immune Globulin (Verified Allergy, Unknown, 11/05/18) SWELLING Objective Date of Service CT scan of abdomen and pelvis without contrast from 10/19/2018 NOTE NAME: GABYSOPHIA DATE OF : 1950 BUSINESS NUMBER: [id number] AGE: 68 SEX: F REPORT #: [id number] [facility]: [facility] DOCTOR: Roshan Covington MD Ordered for Date&Time: 10/19/18 1746 cc: [~ rep ct ivnm] Service Date&Time: 10/19/18 1828 EXAMINATION REQUESTED: CT ABD & PELVIS W/O CONTRAST REASON FOR PATIENT VISIT: ABD PANNICULUS REASON FOR EXAMINATION: ABD PANNICULUS EXAM: CT Abdomen and Pelvis Without Contrast EXAM DATE/TIME: 10/19/2018 6:28 PM CLINICAL HISTORY: 68 years old, female; Pain; Abdominal pain; Patient HX: Bb markers placed on pannicula at [facility]; Additional info: Abd panniculus TECHNIQUE: Axial computed tomography images of the abdomen and pelvis without contrast. All CT scans at this facility use at least one of these dose optimization techniques: automated exposure control; mA and/or kV adjustment per patient size (includes targeted exams where dose is matched to clinical indication); or iterative reconstruction. Coronal and sagittal reformatted images were created and reviewed. COMPARISON: CT ABD PELVIS W/O CONTRAST 06/29/2018 3:59 PM FINDINGS: Lower thorax: There is bibasilar compressive atelectasis. ABDOMEN: Liver: Examination of the liver demonstrates a lobular surface contour, and enlargement of the left and caudate lobes, findings which may be consistent with cirrhosis. Clinical correlation needed. Gallbladder and bile ducts: Cholelithiasis. Pancreas: Normal. No ductal dilation. Spleen: There is moderate nonspecific splenomegaly. Maximum splenic span is 15 cm. Adrenals: Normal. No mass. Kidneys and ureters: Stable 2.1 cm and 1.7 cm exophytic hyperdense lesions in the right kidney likely represent a proteinaceous cysts. Kidneys otherwise unremarkable. Stomach and bowel: Normal. No obstruction. No mucosal thickening. Appendix: No evidence of appendicitis. PELVIS: Bladder: Air within the urinary bladder may be iatrogenic. Clinical correlation to exclude infection suggested. Reproductive: Unremarkable as visualized. ABDOMEN and PELVIS: Intraperitoneal space: Normal. No free air. No significant fluid collection. Bones/joints: Slight anterolisthesis of L3 on L4. Severe central spinal stenosis at L3-4 and L4-5. Soft tissues: Inflammatory changes demonstrated in the soft tissues within the panniculus in the lower abdomen. Tortuous vascular structures demonstrated in the area of clinical concern may indicate thrombosed varicosities. There is soft tissue edema demonstrated in the flanks and buttock regions consistent with anasarca. Recanalized paraumbilical veins. Vasculature: The aorta demonstrates mild atherosclerotic calcification. Lymph nodes: Normal. No enlarged lymph nodes. IMPRESSION: 1. Inflammatory changes demonstrated in the soft tissues within the panniculus in the lower abdomen. Tortuous vascular structures demonstrated in the area of clinical concern may indicate thrombosed varicosities. 2. Anasarca. 3. Examination of the liver demonstrates a lobular surface contour, and enlargement of the left and caudate lobes, findings which may be consistent with cirrhosis. Clinical correlation needed. 4. There is moderate nonspecific splenomegaly. Maximum splenic span is 15 cm. 5. Cholelithiasis. 6. Stable hyperdense exophytic lesions right kidney likely represent complex cysts. Ultrasound correlation suggested if clinically desired in order to exclude solid processes. Electronically signed by: George Robin On 10/19/2018 19:24:14 PM Alfredo Scruggs MD Nov 15, 2018 17:30
[2018-11-15 18:20] VITALS: BP 179/76
[2018-11-15] MEDS ORDERED: ACETAMINOPHEN TAB 650MG DOSE (2X325MG) PO PRN (18:45)
[2018-11-15] MEDS: NORCO, ANEXSIA 5/325MG TABLET (HYDROcodone/ACETAMINOPHEN) PO PRN (18:48)
[2018-11-15 18:51] LABS: BASO # 0.1 10^3/uL (0.0-0.2); BASO % 0.7 % (0.0-1.0); EOS # 0.3 10^3/uL (0.0-0.50); EOS % 4.5 % (0.0-3.0); HEMATOCRIT 33.5 % (36.0-47.0); HEMOGLOBIN 10.5 g/dl (12.0-15.5); LYMPH % 15.4 % (24.0-44.0); MEAN CORPUSCULAR HEMOGLOBIN 29.7 pg (27.0-33.0); MEAN CORPUSCULAR HGB CONC 31.3 g/dl (32.0-36.5); MEAN CORPUSCULAR VOLUME 94.9 fl (80.0-96.0); MONO # 0.6 10^3/uL (0.0-0.8); NEUTROPHILS # 4.7 10^3/uL (1.8-7.7); NEUTROPHILS % 69.8 % (36.0-66.0); PLATELET COUNT, AUTOMATED 187 10^3/uL (150-450); RED BLOOD COUNT 3.53 10^6/uL (4.00-5.40); WHITE BLOOD COUNT 6.7 10^3/uL (4.0-10.0)
[2018-11-15 18:53] LABS: INR 1.64; PROTHROMBIN TIME 19.7 SECONDS (12.1-14.4)
[2018-11-15 18:54] LABS: PARTIAL THROMBOPLASTIN TIME 46.8 SECONDS (25.4-37.6)
[2018-11-15 19:08] LABS: CALCIUM LEVEL 8.4 MG/DL (8.8-10.2); CREATININE FOR GFR 2.25 MG/DL (0.55-1.30); GLOMERULAR FILTRATION RATE 23.1 (>45); POTASSIUM SERUM 3.9 MEQ/L (3.5-5.1)
--- NOTE | 2018-11-15 20:44 | REPVR ---
EXAM: US Pelvis Limited, Transabdominal EXAM DATE/TIME: 11/15/2018 8:12 PM CLINICAL HISTORY: 68 years old, female; Pain; Abdominal pain; Lower abdomen; Additional info: Abd pain TECHNIQUE: Real-time transabdominal pelvic ultrasound with image documentation. Limited exam. COMPARISON: CT ABD PELVIS W/O CONTRAST 10/19/2018 6:19 PM FINDINGS: Vasculature: Prominent veins demonstrated in the anterior abdominal wall which compressed normally without evidence of thrombophlebitis. Other findings: Imaging the anterior abdominal wall to the left of midline in the area of clinical concern which demonstrates multiple apparent lipomas measuring 3.0 X. 1 centimeters, 1.0 X. 0.7 centimeters, and 2.9 X. 2.4 centimeters. IMPRESSION: 1. Imaging the anterior abdominal wall demonstrates multiple apparent lipomas measuring 3.0 X 1.8 centimeters, 1.0 X. 0.7 centimeters, and 2.9 X. 2.4 centimeters. 2. Prominent veins demonstrated in the anterior abdominal wall which compressed normally without evidence of thrombophlebitis. Electronically signed by: George Robin On 11/15/2018 20:44:00 PM
[2018-11-15] MEDS: NS 1,000 ML IV SCH (20:50)
[2018-11-15 22:00] VITALS: BP 167/70
[2018-11-15] MEDS: MORPHINE 4 MG/ML 1ML VIAL/SYRINGE (J2270) IV PRN (22:19)
[2018-11-15] MEDS ORDERED: ACETAMINOPHEN 500 MG TAB PO PRN (22:45)
[2018-11-15] MEDS ORDERED: ALBUTEROL SULFATE 2.5 MG/0.5 ML INH NEB SOLN INH PRN (22:45)
[2018-11-15] MEDS ORDERED: WARFARIN SOD 5 MG TAB PO SCH (23:00)
--- NOTE | 2018-11-15 23:36 | REPVR ---
EXAM: CT Abdomen and Pelvis Without Contrast EXAM DATE/TIME: 11/15/2018 11:13 PM CLINICAL HISTORY: 68 years old, female; Pain; Abdominal pain; Additional info: Abd pain TECHNIQUE: Axial computed tomography images of the abdomen and pelvis without contrast. All CT scans at this facility use at least one of these dose optimization techniques: automated exposure control; mA and/or kV adjustment per patient size (includes targeted exams where dose is matched to clinical indication); or iterative reconstruction. Coronal and sagittal reformatted images were created and reviewed. COMPARISON: CT ABD PELVIS W/O CONTRAST 10/19/2018 6:19 PM FINDINGS: Lower thorax: Cardiomegaly. Pericardial effusion. ABDOMEN: Liver: Examination of the liver demonstrates a lobular surface contour, and enlargement of the left and caudate lobes, findings consistent with cirrhosis. Gallbladder and bile ducts: Multiple gallstones are present. No gallbladder wall thickening or pericholecystic fluid . Pancreas: Normal. No ductal dilation. Spleen: There is mild nonspecific splenomegaly. Spleen measures 15 centimeters maximally. Adrenals: Normal. No mass. Kidneys and ureters: Exophytic lesion projects off the lateral aspect of the right kidney measuring 2.3 centimeters. Findings stable in comparison to the prior study and may represent a hyperdense cyst. Ultrasound correlation suggested to exclude a solid lesion. Stomach and bowel: Normal. No obstruction. No mucosal thickening. Appendix: No evidence of appendicitis. PELVIS: Bladder: Unremarkable as visualized. Reproductive: Unremarkable as visualized. ABDOMEN and PELVIS: Intraperitoneal space: Normal. No free air. No significant fluid collection. Bones/joints: The spine demonstrates moderate degenerative changes. Soft tissues: Inflammatory changes lower anterior abdominal wall. Irregular fatty lesions demonstrated on the lateral aspects of the inflammatory changes bilaterally. Findings may represent lipomas or foci of fat necrosis. Large diastases of the rectus sheath. There is soft tissue edema demonstrated in the buttock regions consistent with anasarca. Vasculature: Portal vein measures 1.6 centimeters. Findings consistent with portal hypertension. The aorta demonstrates mild atherosclerotic calcification. Lymph nodes: Normal. No enlarged lymph nodes. IMPRESSION: 1. Examination of the liver demonstrates a lobular surface contour, and enlargement of the left and caudate lobes, findings consistent with cirrhosis. 2. There is mild nonspecific splenomegaly. Spleen measures 15 centimeters maximally. 3. Multiple gallstones are present. No gallbladder wall thickening or pericholecystic fluid . 4. Exophytic lesion projects off the lateral aspect of the right kidney measuring 2.3 centimeters. Findings stable in comparison to the prior study and may represent a hyperdense cyst. Ultrasound correlation suggested to exclude a solid lesion. 5. Inflammatory changes lower anterior abdominal wall. Irregular fatty lesions demonstrated on the lateral aspects of the inflammatory changes bilaterally. Findings may represent lipomas or foci of fat necrosis. 6. Anasarca. COMMENT: Consistent with the [employer] Incidental Findings Committee Report (J Am Anastasiya Radiol 2010): Unless the patients specific circumstances suggest otherwise, any liver lesion 0.5 cm or less, any cystic kidney lesion less than 1.0 cm, and/or any adrenal lesion 1.0 cm or less not otherwise characterized in this report as possessing suspicious or indeterminate imaging features is/are highly likely to be benign and do not require follow-up imaging or biopsy. Electronically signed by: George Robin On 11/15/2018 23:36:36 PM
[2018-11-15] MEDS: LACTIC ACID 12% LOTION 225 GM BTL TOP SCH (23:42)
[2018-11-15] MEDS: DOCUSATE SODIUM 100 MG CAP PO SCH (23:45)
[2018-11-15] MEDS: CARVedilol 6.25 MG TAB PO SCH (23:45)
[2018-11-15] MEDS: GABAPENTIN 300 MG CAP PO SCH (23:46)
[2018-11-16] MEDS: NORCO, ANEXSIA 5/325MG TABLET (HYDROcodone/ACETAMINOPHEN) PO PRN ×4 (01:55→19:57)
[2018-11-16] MEDS: MORPHINE 4 MG/ML 1ML VIAL/SYRINGE (J2270) IV PRN ×2 (04:50→16:10)
[2018-11-16 06:00] VITALS: BP 144/70
--- NOTE | 2018-11-16 07:34 | ECGEPIP ---
Stationary ECG Study [facility] Test Date: 2018-11-15 Pat Name: SOPHIA GRIFFIN Department: Room: [place] [address] Gender: F [employer] Operator: AMPARO : 1950 Requested By: Alfredo Vieyra Order Number: [id number] Reading MD: Nicolás Billingsley Measurements Intervals [place] Rate: 69 P: 178 AR: 152 QRS: 147 QRSD: 145 T: -3 QT: 406 QTc: 438 Interpretive Statements ELECTRONIC ATRIAL PACEMAKER ELECTRONIC VENTRICULAR PACEMAKER Low QRS voltages throughout ABNORMAL RHYTHM ECG Electronically Signed On 11-16-2018 7:33:51 EST by Nicolás Billingsley
[2018-11-16] MEDS: MONTELUKAST 10 MG TAB PO SCH (09:00)
[2018-11-16] MEDS ORDERED: PREVNAR 13 VACCINE SYRINGE (CPT CODE:90670) IM ONE (09:00)
[2018-11-16] MEDS: ATORVASTATIN 20 MG TAB PO SCH (09:00)
[2018-11-16] MEDS: LACTIC ACID 12% LOTION 225 GM BTL TOP SCH ×2 (09:00→21:00)
[2018-11-16] MEDS: DOCUSATE SODIUM 100 MG CAP PO SCH ×2 (09:01→19:57)
[2018-11-16] MEDS: CARVedilol 6.25 MG TAB PO SCH ×2 (09:01→19:59)
[2018-11-16] MEDS: FUROSEMIDE 40 MG TAB PO SCH (09:01)
[2018-11-16] MEDS: LEVEMIR (INSULIN DETEMIR) 1 UNITS/0.01ML SC SCH (09:03)
[2018-11-16] MEDS: FLUTICASONE PROP 0.05% NASAL SPRAY 16 GM (FLONASE) SCH (09:03)
[2018-11-16] MEDS: NS 1,000 ML IV SCH (09:49)
--- NOTE | 2018-11-16 12:22 | REP ---
Urinary tract sonography: History: Mass on right kidney. Comparison CT study November 15, 2018 as well as June 29, 2018. Sonographic findings: Scanning at the level of the urinary bladder shows smooth bladder guido. There is no evidence of hydronephrosis on either side. Renal cortical echogenicity pattern is slightly increased consistent with chronic medical renal disease. Right renal dimensions are 12.1 x 6.9 x 7.0 cm. Left kidney measures 10.0 x 5.2 x 5.4 cm. There are three cyst seen in the right kidney. At the upper pole there is a 2.0 x 1.6 x 1.5 cm cyst. At mid pole level there is a 1.1 x 1.1 x 1.1 cm cyst. At the lower pole peripherally there is a 2.4 x 2.1 x 2.1 cm cyst. This is felt to correspond with a hyperdense peripheral cyst seen on CT study. No mass lesion is visible. The left kidney contains a 1.1 cm cyst at its upper pole and two adjacent small cysts at mid pole level measuring 1.0 and 1.0 cm in greatest diameter each. Impression: Multiple bilateral renal cysts. Increased renal cortical echogenicity pattern consistent with some degree of chronic medical renal disease. No hydronephrosis seen. Electronically Signed by Lorenzo Moody MD 11/16/2018 02:45 P
[2018-11-16 14:00] VITALS: BP 133/66
[2018-11-16] MEDS: WARFARIN SOD 2.5 MG TAB PO SCH (16:10)
[2018-11-16] MEDS: GABAPENTIN 300 MG CAP PO SCH (19:57)
[2018-11-16 22:00] VITALS: BP 142/63
[2018-11-17] MEDS: NORCO, ANEXSIA 5/325MG TABLET (HYDROcodone/ACETAMINOPHEN) PO PRN ×3 (02:07→16:01)
[2018-11-17] MEDS: NS 1,000 ML IV SCH (02:24)
[2018-11-17 06:00] VITALS: BP 125/67
[2018-11-17] MEDS: ATORVASTATIN 20 MG TAB PO SCH (08:14)
[2018-11-17] MEDS: DOCUSATE SODIUM 100 MG CAP PO SCH (08:14)
[2018-11-17 08:16] VITALS: BP 174/75
[2018-11-17] MEDS: CARVedilol 6.25 MG TAB PO SCH (08:16)
[2018-11-17] MEDS: FLUTICASONE PROP 0.05% NASAL SPRAY 16 GM (FLONASE) SCH (08:17)
[2018-11-17] MEDS: MONTELUKAST 10 MG TAB PO SCH (08:17)
[2018-11-17] MEDS: LEVEMIR (INSULIN DETEMIR) 1 UNITS/0.01ML SC SCH (08:17)
[2018-11-17] MEDS: FUROSEMIDE 40 MG TAB PO SCH (08:17)
--- NOTE | 2018-11-17 08:31 | IPNPDOC ---
Text Note Date of Service The patient was seen on 11/17/18. NOTE I was asked to see Ms. Vargas for painful subcutaneous nodularities on her lower pannus. I saw and examined her and reviewed available imaging studies whether. Full consult to follow. Large draping pannus down be on the patient's groin area with noticeable harde may irregular shaped solid subcutaneous nodularities on the lower pannus that is tender to touch. Not warm. No associated skin changes. No erythema. No wooden appearance of the skin. 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 Would like to do an ultrasound-guided biopsy by radiology. At this point I will await for the pathology results. She can see me back in the clinic for further discussion on whether we can excise these subcutaneous nodules. VS,Fishbone, I+O VS, Fishbone, I+O Vital Signs Date Time Temp Pulse Resp B/P (MAP) Pulse Ox O2 Delivery O2 Flow Rate FiO2 11/17/18 08:16 69 174/75 11/17/18 07:28 16 11/17/18 06:00 97.1 96 I&O- Last 24 Hours up to 6 AM 11/17/18 06:00 Intake Total 2430 ml Output Total 1550 ml Balance 880 ml KIESHA AKBAR MD Nov 17, 2018 08:31
[2018-11-17] MEDS: LACTIC ACID 12% LOTION 225 GM BTL TOP SCH (09:00)
[2018-11-17] MEDS ORDERED: PREVNAR 13 VACCINE SYRINGE (CPT CODE:90670) IM ONE (09:00)
[2018-11-17 09:05] LABS: INR 1.91; PROTHROMBIN TIME 22.2 SECONDS (12.1-14.4)
[2018-11-17] MEDS: MORPHINE 4 MG/ML 1ML VIAL/SYRINGE (J2270) IV PRN (09:53)
[2018-11-17] MEDS ORDERED: LIDOCAINE 1% MDV 20ML VIAL As Ordered ONE (10:00)
[2018-11-17] MEDS ORDERED: DEXTROSE 50% 50 ML SYRINGE IV PRN (10:30)
[2018-11-17] MEDS ORDERED: GLUCOSE 4 GM CHEW TABLET PO PRN (10:30)
[2018-11-17] MEDS ORDERED: GLUCAGON FOR INJ 1 MG VIAL (J1610) SC PRN (10:30)
[2018-11-17] MEDS ORDERED: HumaLOG INSULIN (NovoLOG) PER UNIT SC SCH ×2 (12:00→21:00)
--- NOTE | 2018-11-17 12:40 | IPNPDOC ---
Subjective General Date/Time Seen The patient was seen on 11/16/18 at 08:34. Subject Chief Complaint/History The patient is a 68-year-old female admitted with a reason for visit of Abdominal Venous Phlebitis. Current Medications Current Medications Current Medications Acetaminophen (Tylenol Tab) 650 mg Q6HP PRN PO MILD PAIN (PS 1-4); Start 11/15/18 at 18:45 Acetaminophen (Tylenol Tab) 1,000 mg BIDP PRN PO PAIN; Start 11/15/18 at 22:45 Acetaminophen/ Hydrocodone Bitart ([place], Anexsia 5/325) 1 tab Q4HP PRN PO MODERATE PAIN (PS 5-7) Last administered on 11/17/18at 06:58; Start 11/15/18 at 18:45 Albuterol Sulfate (Proventil Neb) 2.5 mg Q4HP PRN INH SHORTNESS OF BREATH; Start 11/15/18 at 22:45 Atorvastatin Calcium (Lipitor) 40 mg DAILY PO Last administered on 11/17/18at 08:14; Start 11/16/18 at 09:00 Carvedilol (COReg) 6.25 mg BID PO Last administered on 11/17/18at 08:16; Start 11/15/18 at 21:00 Dextrose (Dextrose 50%) 25 ml ASDIRECTED PRN IV SEE LABEL COMMENTS; Start 11/17/18 at 10:30 Docusate Sodium (Colace) 100 mg BID PO Last administered on 11/17/18at 08:14; Start 11/15/18 at 21:00 Fluticasone Propionate (Flonase 0.05% Nasal [place]) 1 spray DAILY NA Last administered on 11/17/18at 08:17; Start 11/16/18 at 09:00 Furosemide (Lasix) 40 mg DAILY PO Last administered on 11/17/18 08:17; Start 11/16/18 at 09:00 Gabapentin (Neurontin) 300 mg QHS PO Last administered on 11/16/18at 19:57; Start 11/15/18 at 21:00 Glucagon (Glucagon) 1 mg ASDIRECTED PRN SC SEE LABEL COMMENTS; Start 11/17/18 at 10:30 Glucose (Glucose) 16 GM ASDIRECTED PRN PO SEE LABEL COMMENTS; Start 11/17/18 at 10:30 Home Med (Med Rec Complete!) ASDIRECTED XX ; Start 11/15/18 at 19:45; Stop 11/15/18 at 19:45; Status DC Insulin Detemir (Levemir Insulin) 40 units DAILY SC Last administered on 11/17/18at 08:17; Start 11/16/18 at 09:00 Insulin Human Lispro (HumaLOG INSULIN) SEE PROTOCOL TABLE AC SC ; Start 11/17/18 at 12:00 Insulin Human Lispro (HumaLOG INSULIN) SEE PROTOCOL TABLE QHS SC ; Start 11/17/18 at 21:00 Lactic Acid (Lac-Hydrin 12% Lotion) APPLY TO AFFECTED FOOT BID TOP ; Start 11/15/18 at 21:00 Montelukast Sodium (Singulair) 10 mg DAILY PO Last administered on 11/17/18at 08:17; Start 11/16/18 at 09:00 Morphine Sulfate (Morphine Sulfate Inj) 2 mg Q4HP PRN IV SEVERE PAIN (PS 8-10) Last administered on 11/17/18 09:53; Start 11/15/18 at 18:45 Sodium Chloride 1,000 ml @ 60 mls/hr [id number] IV Last administered on 11/17/18at 02:24; Start 11/15/18 at 17:09; Stop 11/17/18 at 10:24; Status DC Vitamin D (Drisdol) 50,000 units Sa@0900 PO ; Start 11/20/18 at 09:00 Warfarin Sodium (Coumadin) 2.5 mg SuTuWeThFrSa@1700 PO Last administered on 11/16/18 16:10; Start 11/16/18 at 17:00 Warfarin Sodium (Coumadin) 5 mg Mo@1700 PO Last administered on 11/15/18at 23:45; Start 11/15/18 at 23:00 Allergies Coded Allergies: Contrast Media (Verified Allergy, Unknown, 11/05/18) kidney failure TAPE (Verified Allergy, Unknown, 11/05/18) redness, swelling Tetanus Immune Globulin (Verified Allergy, Unknown, 11/05/18) SWELLING VITAL SIGNS VITAL SIGNS Vital Signs Date Time Temp Pulse Resp B/P (MAP) Pulse Ox O2 Delivery O2 Flow Rate FiO2 11/15/18 18:20 97.5 70 20 179/76 (110) 99 Laboratory Tests 11/15/18 18:34 Red Blood Count 3.53 L, Mean Corpuscular Volume 94.9, Mean Corpuscular Hemoglobin 29.7, Mean Corpuscular Hemoglobin Concent 31.3 L, Red Cell Distribution Width 14.9 H, Neutrophils (%) (Auto) 69.8 H, Lymphocytes (%) (Auto) 15.4 L, Monocytes (%) (Auto) 9.0 H, Eosinophils (%) (Auto) 4.5 H, Basophils (%) (Auto) 0.7, Neutrophils # (Auto) 4.7, Lymphocytes # (Auto) 1.0 L, Monocytes # (Auto) 0.6, Eosinophils # (Auto) 0.3, Basophils # (Auto) 0.1, Calcium Level 8.4 L Objective Date of Service The patient was seen on 11/17/18. NOTE NAME: OSPHIA GRIFFIN DATE OF : 1950 BUSINESS NUMBER: [id number] AGE: 68 SEX: F REPORT #: [id number] ROOM: [facility] TECHNOLOGIST: PANFILO DOCTOR: Alfredo Scruggs MD Ordered for Date&Time: 11/15/18 1716 cc: [~ rep ct ivnm] Service Date&Time: 11/15/182011 EXAMINATION REQUESTED: Pelvis, limited US REASON FOR PATIENT VISIT: ABDOMINAL VENOUS PHLEBITIS REASON FOR EXAMINATION: abd pain EXAM: US Pelvis Limited, Transabdominal EXAM DATE/TIME: 11/15/2018 8:12 PM CLINICAL HISTORY: 68 years old, female; Pain; Abdominal pain; Lower abdomen; Additional info: Abd pain TECHNIQUE: Real-time transabdominal pelvic ultrasound with image documentation. Limited exam. COMPARISON: CT ABD PELVIS W/O CONTRAST 10/19/2018 6:19 PM FINDINGS: Vasculature: Prominent veins demonstrated in the anterior abdominal wall which compressed normally without evidence of thrombophlebitis. Other findings: Imaging the anterior abdominal wall to the left of midline in the area of clinical concern which demonstrates multiple apparent lipomas measuring 3.0 X. 1 centimeters, 1.0 X. 0.7 centimeters, and 2.9 X. 2.4 centimeters. IMPRESSION: 1. Imaging the anterior abdominal wall demonstrates multiple apparent lipomas measuring 3.0 X 1.8 centimeters, 1.0 X. 0.7 centimeters, and 2.9 X. 2.4 centimeters. 2. Prominent veins demonstrated in the anterior abdominal wall which compressed normally without evidence of thrombophlebitis. Electronically signed by: George Robin On 11/15/2018 20:44:00 PM NAME: SOPHIA GRIFFIN DATE OF : 1950 BUSINESS NUMBER: [id number] AGE: 68 SEX: F REPORT #: [id number] ROOM: [facility] TECHNOLOGIST: ANTONIAGUY DOCTOR: Alfredo Scruggs MD Ordered for Date&Time: 11/15/181 cc: [~ rep ct ivnm] Service Date&Time: 11/15/18 2313 EXAMINATION REQUESTED: CT ABD & PELVIS W/O CONTRAST REASON FOR PATIENT VISIT: ABDOMINAL VENOUS PHLEBITIS REASON FOR EXAMINATION: abd pain EXAM: CT Abdomen and Pelvis Without Contrast EXAM DATE/TIME: 11/15/2018 11:13 PM CLINICAL HISTORY: 68 years old, female; Pain; Abdominal pain; Additional info: Abd pain TECHNIQUE: Axial computed tomography images of the abdomen and pelvis without contrast. All CT scans at this facility use at least one of these dose optimization techniques: automated exposure control; mA and/or kV adjustment per patient size (includes targeted exams where dose is matched to clinical indication); or iterative reconstruction. Coronal and sagittal reformatted images were created and reviewed. COMPARISON: CT ABD PELVIS W/O CONTRAST 10/19/2018 6:19 PM FINDINGS: Lower thorax: Cardiomegaly. Pericardial effusion. ABDOMEN: Liver: Examination of the liver demonstrates a lobular surface contour, and enlargement of the left and caudate lobes, findings consistent with cirrhosis. Gallbladder and bile ducts: Multiple gallstones are present. No gallbladder wall thickening or pericholecystic fluid . Pancreas: Normal. No ductal dilation. Spleen: There is mild nonspecific splenomegaly. Spleen measures 15 centimeters maximally. Adrenals: Normal. No mass. Kidneys and ureters: Exophytic lesion projects off the lateral aspect of the right kidney measuring 2.3 centimeters. Findings stable in comparison to the prior study and may represent a hyperdense cyst. Ultrasound correlation suggested to exclude a solid lesion. Stomach and bowel: Normal. No obstruction. No mucosal thickening. Appendix: No evidence of appendicitis. PELVIS: Bladder: Unremarkable as visualized. Reproductive: Unremarkable as visualized. ABDOMEN and PELVIS: Intraperitoneal space: Normal. No free air. No significant fluid collection. Bones/joints: The spine demonstrates moderate degenerative changes. Soft tissues: Inflammatory changes lower anterior abdominal wall. Irregular fatty lesions demonstrated on the lateral aspects of the inflammatory changes bilaterally. Findings may represent lipomas or foci of fat necrosis. Large diastases of the rectus sheath. There is soft tissue edema demonstrated in the buttock regions consistent with anasarca. Vasculature: Portal vein measures 1.6 centimeters. Findings consistent with portal hypertension. The aorta demonstrates mild atherosclerotic calcification. Lymph nodes: Normal. No enlarged lymph nodes. IMPRESSION: 1. Examination of the liver demonstrates a lobular surface contour, and enlargement of the left and caudate lobes, findings consistent with cirrhosis. 2. There is mild nonspecific splenomegaly. Spleen measures 15 centimeters maximally. 3. Multiple gallstones are present. No gallbladder wall thickening or pericholecystic fluid . 4. Exophytic lesion projects off the lateral aspect of the right kidney measuring 2.3 centimeters. Findings stable in comparison to the prior study and may represent a hyperdense cyst. Ultrasound correlation suggested to exclude a solid lesion. 5. Inflammatory changes lower anterior abdominal wall. Irregular fatty lesions demonstrated on the lateral aspects of the inflammatory changes bilaterally. Findings may represent lipomas or foci of fat necrosis. 6. Anasarca. COMMENT: Consistent with the [employer] Incidental Findings Committee Report (J Am Anastasiya Radiol 2010): Unless the patients specific circumstances suggest otherwise, any liver lesion 0.5 cm or less, any cystic kidney lesion less than 1.0 cm, and/or any adrenal lesion 1.0 cm or less not otherwise characterized in this report as possessing suspicious or indeterminate imaging features is/are highly likely to be benign and do not require follow-up imaging or biopsy. Electronically signed by: George Robin On 11/15/2018 23:36:36 PM Assessment/Plan Assessment 68-year-old female with pain in firm areas in her abdominal pannus with severe pain. Plan These lesions do not appear to be related to her veins and may be related to abnormal lipodystrophy, calciphylaxis or panniculitis. I've asked the general surgery team to evaluate the patient and await their recommendations. Alfredo Scruggs MD Nov 17, 2018 12:40
--- NOTE | 2018-11-17 12:42 | IPNPDOC ---
Subjective General Date/Time Seen The patient was seen on 11/17/18 at 12:40. Subject Chief Complaint/History The patient is a 68-year-old female admitted with a reason for visit of Abdominal Venous Phlebitis. Current Medications Current Medications Current Medications Acetaminophen (Tylenol Tab) 650 mg Q6HP PRN PO MILD PAIN (PS 1-4); Start 11/15/18 at 18:45 Acetaminophen (Tylenol Tab) 1,000 mg BIDP PRN PO PAIN; Start 11/15/18 at 22:45 Acetaminophen/ Hydrocodone Bitart ([place], Anexsia 5/325) 1 tab Q4HP PRN PO MODERATE PAIN (PS 5-7) Last administered on 11/17/18at 06:58; Start 11/15/18 at 18:45 Albuterol Sulfate (Proventil Neb) 2.5 mg Q4HP PRN INH SHORTNESS OF BREATH; Start 11/15/18 at 22:45 Atorvastatin Calcium (Lipitor) 40 mg DAILY PO Last administered on 11/17/18at 08:14; Start 11/16/18 at 09:00 Carvedilol (COReg) 6.25 mg BID PO Last administered on 11/17/18at 08:16; Start 11/15/18 at 21:00 Dextrose (Dextrose 50%) 25 ml ASDIRECTED PRN IV SEE LABEL COMMENTS; Start 11/17/18 at 10:30 Docusate Sodium (Colace) 100 mg BID PO Last administered on 11/17/18at 08:14; Start 11/15/18 at 21:00 Fluticasone Propionate (Flonase 0.05% Nasal [place]) 1 spray DAILY NA Last a dministered on 11/17/18at 08:17; Start 11/16/18 at 09:00 Furosemide (Lasix) 40 mg DAILY PO Last administered on 11/17/18 08:17; Start 11/16/18 at 09:00 Gabapentin (Neurontin) 300 mg QHS PO Last administered on 11/16/18at 19:57; Start 11/15/18 at 21:00 Glucagon (Glucagon) 1 mg ASDIRECTED PRN SC SEE LABEL COMMENTS; Start 11/17/18 at 10:30 Glucose (Glucose) 16 GM ASDIRECTED PRN PO SEE LABEL COMMENTS; Start 11/17/18 at 10:30 Home Med (Med Rec Complete!) ASDIRECTED XX ; Start 11/15/18 at 19:45; Stop at 19:45; Status DC Insulin Detemir (Levemir Insulin) 40 units DAILY SC Last administered on 11/17/18at 08:17; Start 11/16/18 at 09:00 Insulin Human Lispro (HumaLOG INSULIN) SEE PROTOCOL TABLE AC SC ; Start 11/17/18 at 12:00 Insulin Human Lispro (HumaLOG INSULIN) SEE PROTOCOL TABLE QHS SC ; Start 11/17/18 at 21:00 Lactic Acid (Lac-Hydrin 12% Lotion) APPLY TO AFFECTED FOOT BID TOP ; Start 11/15/18 at 21:00 Montelukast Sodium (Singulair) 10 mg DAILY PO Last administered on 11/17/18at 08:17; Start 11/16/18 at 09:00 Morphine Sulfate (Morphine Sulfate Inj) 2 mg Q4HP PRN IV SEVERE PAIN (PS 8-10) Last administered on 11/17/18at 09:53; Start 11/15/18 at 18:45 Sodium Chloride 1,000 ml @ 60 mls/hr [id number] IV Last administered on 11/17/18at 02:24; Start 11/15/18 at 17:09; Stop 11/17/18 at 10:24; Status DC Vitamin D (Drisdol) 50,000 units Sa@0900 PO ; Start 11/20/18 at 09:00 Warfarin Sodium (Coumadin) 2.5 mg SuTuWeThFrSa@1700 PO Last administered on 11/16/18at 16:10; Start 11/16/18 at 17:00 Warfarin Sodium (Coumadin) 5 mg Mo@1700 PO Last administered on 11/15/18at 23:45; Start 11/15/18 at 23:00 Allergies Coded Allergies: Contrast Media (Verified Allergy, Unknown, 11/05/18) kidney failure TAPE (Verified Allergy, Unknown, 11/05/18) redness, swelling Tetanus Immune Globulin (Verified Allergy, Unknown, 11/05/18) SWELLING VITAL SIGNS VITAL SIGNS Laboratory Tests 11/15/18 18:34 Red Blood Count 3.53 L, Mean Corpuscular Volume 94.9, Mean Corpuscular Hemoglobin 29.7, Mean Corpuscular Hemoglobin Concent 31.3 L, Red Cell Distribution Width 14.9 H, Neutrophils (%) (Auto) 69.8 H, Lymphocytes (%) (Auto) 15.4 L, Monocytes (%) (Auto) 9.0 H, Eosinophils (%) (Auto) 4.5 H, Basophils (%) (Auto) 0.7, Neutrophils # (Auto) 4.7, Lymphocytes # (Auto) 1.0 L, Monocytes # (Auto) 0.6, Eosinophils # (Auto) 0.3, Basophils # (Auto) 0.1, Calcium Level 8.4 L Vital Signs Date Time Temp Pulse Resp B/P (MAP) Pulse Ox O2 Delivery O2 Flow Rate FiO2 11/17/18 10:03 16 11/17/18 09:53 16 11/17/18 08:16 69 174/75 11/17/18 07:28 16 11/17/18 06:58 17 11/17/18 06:00 97.1 71 18 125/67 (86) 96 11/17/18 02:07 18 11/16/18 22:00 97.4 70 20 142/63 (89) 92 11/16/18 19:59 140/62 11/16/18 19:57 20 11/16/18 16:10 20 11/16/18 14:42 18 11/16/18 14:00 97.3 63 18 133/66 (88) 94 Intake & Output0 11/17/18 06:00 Intake Total 2430 ml Output Total 1550 ml Balance 880 ml Laboratory Tests 11/17/18 08:39: Prothrombin Time 22.2H, Prothromb Time International Ratio 1.91 11/17/18 11:43: Bedside Glucose (Misc Panel) 177H Current Medications Medications (Trade) Dose Ordered Sig/Dion Route PRN Reason Start Time Stop Time Status Last Admin Dose Admin Acetaminophen/ Hydrocodone Bitart ([place], Anexsia 5/325) 1 tab Q4HP PRN PO MODERATE PAIN (PS 5-7) 11/15/18 18:45 11/17/18 06:58 Atorvastatin Calcium (Lipitor) 40 mg DAILY PO 11/16/18 09:00 11/17/18 08:14 Carvedilol (COReg) 6.25 mg BID PO 11/15/18 21:00 11/17/18 08:16 Docusate Sodium (Colace) 100 mg BID PO 11/15/18 21:00 11/17/18 08:14 Fluticasone Propionate (Flonase 0.05% Nasal [place]) 1 spray DAILY NA 11/16/18 09:00 11/17/18 08:17 Furosemide (Lasix) 40 mg DAILY PO 11/16/18 09:00 11/17/18 08:17 Gabapentin (Neurontin) 300 mg QHS PO 11/15/18 21:00 11/16/18 19:57 Insulin Detemir (Levemir Insulin) 40 units DAILY SC 11/16/18 09:00 11/17/18 08:17 Montelukast Sodium (Singulair) 10 mg DAILY PO 11/16/18 09:00 11/17/18 08:17 Morphine Sulfate (Morphine Sulfate Inj) 2 mg Q4HP PRN IV SEVERE PAIN (PS 8-10) 11/15/18 18:45 11/17/18 09:53 Warfarin Sodium (Coumadin) 5 mg Mo@1700 PO 11/15/18 23:00 11/15/18 23:45 Laboratory Tests Test 11/17/18 11:43 Range/Units Bedside Glucose (Misc Panel) 177 80-115 MG/DL Alfredo Scruggs MD Nov 17, 2018 12:42
--- NOTE | 2018-11-17 12:49 | DS.PDOC ---
Discharge Summary General Date of Admission Nov 15, 2018 at 17:09 Date of Discharge 11/17/2018 Primary Care Physician: Roshan Covington MD Attending Physician: Alfredo Scruggs MD Specialist/Consultants Involve: KIESHA AKBAR MD Discharge Summary PROCEDURES PERFORMED DURING STAY: Biopsy of abdominal masses. ADMITTING DIAGNOSES: 1. Abdominal pain. DISCHARGE DIAGNOSES: 1. Abdominal Pain. COMPLICATIONS/CHIEF COMPLAINT: Abdominal Venous Phlebitis. HISTORY OF PRESENT ILLNESS: Patient is a 68-year-old female who was seen in the office and admitted with exquisite pain in 2 masses in her lower abdomen that were thought to be varicosities and had thrombosed. Patient underwent an ultrasound which showed the varicosities be patent with no thrombophlebitis or thrombosis of the veins in the abdomen. HOSPITAL COURSE: Patient was seen in consultation by general surgery who ordered biopsy of the lesions. The patient will follow-up with the Gen. surgery team as an outpatient. DISCHARGE MEDICATIONS: Please see below. ALLERGIES: Please see below. PHYSICAL EXAMINATION ON DISCHARGE: VITAL SIGNS: Please see below. GENERAL: No apparent distress HEENT: Normal NECK: Supple with no carotid bruits CARDIOVASCULAR EXAMINATION: Regular rate and rhythm RESPIRATORY EXAMINATION: Clear to auscultation bilaterally ABDOMINAL EXAMINATION: Soft nontender nondistended no palpable pulsatile masses EXTREMITIES: Warm well perfused SKIN: Warm and well perfused NEUROLOGICAL EXAMINATION: Awake alert oriented 3 PSYCHIATRIC EXAMINATION: Normal LABORATORY DATA: Please see below. IMAGING: Ultrasound of the abdominal varicosity showing no acute thrombophlebitis or thrombosis of the abdominal veins PROGNOSIS: Good ACTIVITY: As tolerated. DIET: Low-fat low-cholesterol DISCHARGE PLAN: Patient will be discharged home DISPOSITION: . DISCHARGE INSTRUCTIONS: 1. Follow-up with the general surgical team for biopsy results and future plan. ITEMS TO FOLLOWUP ON ON OUTPATIENT: 1. Biopsy results. DISCHARGE CONDITION: Stable. TIME SPENT ON DISCHARGE: Greater than 45 minutes. Vital Signs/I&Os Vital Signs Date Time Temp Pulse Resp B/P (MAP) Pulse Ox O2 Delivery O2 Flow Rate FiO2 11/17/18 10:03 16 11/17/18 08:16 69 174/75 11/17/18 06:00 97.1 96 I&O- Last 24 Hours up to 6 AM 11/17/18 06:00 Intake Total 2430 ml Output Total 1550 ml Balance 880 ml Laboratory Data Labs 24H Laboratory Tests 2 11/17/18 08:39: Prothrombin Time 22.2H, Prothromb Time International Ratio 1.91 11/17/18 11:43: Bedside Glucose (Misc Panel) 177H FSBS Laboratory Tests Test 11/17/18 11:43 Range/Units Bedside Glucose (Misc Panel) 177 80-115 MG/DL Discharge Medications Scheduled Ammonium Lactate (Ammonium Lactate) 12 % Cre, 1 APLCT TOP BID, (Reported) Atorvastatin Calcium (Atorvastatin Calcium) 40 Mg Tab, 40 MG PO DAILY, (Reported) Carvedilol (Carvedilol) 6.25 Mg Tab, 6.25 MG PO BID, (Reported) Docusate Sodium (Colace) 100 Mg Cap, 100 MG PO BID, (Reported) Ergocalciferol (Vitamin D) 50,000 Unit Cap, 50,000 UNIT PO 1XWK, (Reported) THURSDAY MORNINGS Ferrous Gluconate (Ferrous Gluconate) 324 Mg Tab, 324 MG PO Q2D, (Reported) Fluticasone Propionate (Flonase Allergy Relief) 50 Mcg/Act Spr, 1 SPRAY NA DAILY, (Reported) Furosemide (Furosemide) 40 Mg Tab, 40 MG PO DAILY, (Reported) Gabapentin (Neurontin) 300 Mg Cap, 300 MG PO QHS, (Reported) Insulin (Humulin R U-500 (Concentr) 1 Units/0.002 Ml Inj, 1 DOSE SC DAILY, (Reported) PER SLIDING SCALE Insulin Glargine (Lantus) 1 Units/0.01 Ml Susp, 40 UNITS SC DAILY, (Reported) Magnesium Oxide (Magnesium-Oxide) 241.3 Mg Tab, 400 MG PO Q2D for constipation, (Reported) Montelukast Sodium (Montelukast Sodium) 10 Mg Tab, 10 MG PO DAILY, (Reported) Warfarin Sod (Warfarin Sodium) 5 Mg Tab, 5 MG PO QWEEK, (Reported) Thursday; thu ; thursday Warfarin Sod (Coumadin) 2.5 Mg Tab, 2.5 MG PO 6XWK, (Reported) Thursday, Thursday, and Thursday Scheduled PRN Acetaminophen (Tylenol Extra Strength) 500 Mg Tab, 1,000 MG PO BID PRN for PAIN, (Reported) Albuterol Sulfate (Albuterol Sulfate) 2.5 Mg/3 Ml Nebu, 2.5 MG INH Q4H PRN for SHORTNESS OF BREATH, (Reported) Allergies Coded Allergies: Contrast Media (Verified Allergy, Unknown, kidney failure, 12/01/18) kidney failure MS - Tetanus Immune Globulin (Verified Allergy, Unknown, swelling, 12/01/18) SWELLING TAPE (Verified Allergy, Unknown, reddness swelling, 12/01/18) redness, swelling Alfredo Scruggs MD Nov 17, 2018 12:49
[2018-11-17 14:34] VITALS: BP 129/58
[2018-11-17] MEDS: WARFARIN SOD 2.5 MG TAB PO SCH (16:00)
--- NOTE | 2018-11-17 20:36 | REP ---
ULTRASOUND-GUIDED SUBCUTANEOUS ABDOMINAL NODULE BIOPSY The procedure was performed under the direct supervision of Dr. allred. 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 The risks and benefits of the procedure were explained to the patient and informed consent was obtained. One of the lipomas left of the umbilicus was localized using ultrasound guidance. The skin was prepped and draped in a sterile fashion. 1% lidocaine was used as a local anesthetic. Using ultrasound guidance a 19/20 gauge coaxial needle biopsy system was inserted and advanced into the nodule. Six core biopsy samples were obtained and sent to lab. The patient tolerated the procedure well and there were no immediate complications. After the appropriate amount of monitored convalescence the patient was discharged from the department. Reviewed by LOVELY Lawson 11/17/2018 02:36 P Electronically Signed by Jose Allred MD 11/17/2018 08:27 P
[2018-11-20] MEDS ORDERED: VITAMIN D 50,000 UNITS CAPSULE (ERGOCALCIFEROL 1.25MG) PO SCH (09:00)
[2018-12-01] MEDS ORDERED: FERR32TA PO (14:51)
[2018-12-01] MEDS ORDERED: MAG-400T7 PO (14:51)
== END 2018-11-17 17:32 | disposition home or self-care (01) | DRG 301 ==
LOC: M MSPAV 17:09
PROVIDERS: ADMIT Family Medicine; ATTEND Surgery Vascular Surgery
PROC: 0J983ZX Drainage of Abdomen Subcutaneous Tissue and Fascia, Percutaneous Approach, Diagnostic (ICD-10-PCS; principal; 2018-11-17)
DX: I80.8 Phlebitis and thrombophlebitis of other sites (principal); M79.3 Panniculitis, unspecified; E88.1 Lipodystrophy, not elsewhere classified; Z88.7 Allergy status to serum and vaccine; Z91.040 Latex allergy status; Z91.048 Other nonmedicinal substance allergy status; Z79.899 Other long term (current) drug therapy; Z79.4 Long term (current) use of insulin; Z79.01 Long term (current) use of anticoagulants

== ENCOUNTER → 2018-11-24 | Outpatient (REF) | payer MEDICARE | LOC: M LAB REF 12:59 | PROVIDERS: ATTEND Internal Medicine Nephrology | DX: N18.4 Chronic kidney disease, stage 4 (severe) (principal); E11.22 Type 2 diabetes mellitus with diabetic chronic kidney disease ==

== ENCOUNTER → 2018-12-02 | Outpatient (CLI) | payer MEDICARE ==
[~2018-12-02] MED LIST changes: +ACETAMINOPHEN PO; -AMMO12CR4 TOP; +AMMO12CR7 TOP; -ASPI1TAB PO; +ASPI81TA26 PO; +FERR32TA PO; +HYDROCODONE PO; +MAG-400T7 PO; -NORC1TAB4 PO; +NORC1TAB7 PO
[2018-12-02 20:40] LABS: ALBUMIN 3.2 GM/DL (3.2-5.2); ALT/SGPT 43 U/L (12-78); BILIRUBIN,DIRECT 0.2 MG/DL (0.0-0.2); BILIRUBIN,TOTAL 0.4 MG/DL (0.2-1.0); TOTAL PROTEIN 7.7 GM/DL (6.4-8.2)
[2018-12-03 11:23] LABS: HEPATITIS B SURFACE ANTIBODY NEGATIVE (POSITIVE)
[2018-12-04 16:50] LABS: HEPATITIS A IgG TOTAL Negative (Negative)
[2018-12-05 00:07] LABS: ANTI-SMOOTH MUSCLE ANTIBODY 12 Units (0-19)
== END ==
LOC: M LABDRWAD 13:53
PROVIDERS: ATTEND Internal Medicine Gastroenterology
DX: K74.60 Unspecified cirrhosis of liver (principal)
CPT/HCPCS: 36415; 80076; 82172; 83010; 83883; 86255; 86706; 86708; G0463

== ENCOUNTER 2018-12-20 12:41 | Day surgery (SDC) | payer MEDICARE ==
[~2018-12-20] VITALS: Ht 155.6 cm; Wt 51.4 kg
[~2018-12-20 12:41] MED LIST changes: -ACETAMINOPHEN PO; -HYDROCODONE PO
[2018-12-20] MEDS ORDERED: D5W/0.2% SODIUM CHLORIDE 1,000 ML IV ONE (13:00)
[2018-12-20] MEDS ORDERED: LIDOCAINE 2% INJ 100 MG/5 ML SDV (FOR ANES.) As Ordered ONE (13:21)
[2018-12-20] MEDS ORDERED: PROPOFOL 200 MG/20 ML VIAL As Ordered ONE ×3 (13:21→16:47)
[2018-12-20] MEDS ORDERED: ONDANSETRON 4MG/2ML VIAL (J2405) As Ordered ONE (13:22)
[2018-12-20] MEDS ORDERED: dexameTHASONE 4 MG/ML 1ML VIAL (J1100) As Ordered ONE (13:22)
[2018-12-20] MEDS ORDERED: fentaNYL 100 MCG/2 ML INJECTION (J3010) As Ordered ONE ×2 (13:22→17:40)
[2018-12-20] MEDS ORDERED: MIDAZOLAM INJ 2 MG/2 ML VIAL (J2250) As Ordered ONE (13:22)
[2018-12-20 13:35] LABS: INR 1.13; PROTHROMBIN TIME 14.7 SECONDS (12.1-14.4)
[2018-12-20] MEDS ORDERED: BUPIVACAINE HCL 0.25% 30 ML VIAL As Ordered ONE (15:01)
[2018-12-20] MEDS ORDERED: LIDOCAINE 1% SDV INJ 30 ML VIAL As Ordered ONE (15:01)
[2018-12-20] MEDS ORDERED: LIDOCAINE W/EPINEPHRINE 1% 20ML VIAL As Ordered ONE (15:01)
[2018-12-20] MEDS ORDERED: KETAMINE HCL 200 MG/20 ML VIAL As Ordered ONE (15:40)
[2018-12-20] MEDS ORDERED: GLYCOPYRROLATE INJ 0.2 MG/ML 2 ML VIAL As Ordered ONE (15:49)
[2018-12-20] MEDS ORDERED: PHENYLephrine HCL 500 MCG/5 ML (100MCG/ML) SYRINGE (J2370) As Ordered ONE (16:39)
[2018-12-20] MEDS ORDERED: ALBUTEROL SULFATE 2.5 MG/0.5 ML INH NEB SOLN INH PRN (17:30)
[2018-12-20] MEDS ORDERED: KETOROLAC 30 MG/ML VIAL (J1885) IV PRN (17:30)
[2018-12-20] MEDS ORDERED: MORPHINE 4 MG/ML 1ML VIAL/SYRINGE (J2270) IV PRN (17:30)
[2018-12-20] MEDS ORDERED: ACETAMINOPHEN TAB 650MG DOSE (2X325MG) PO PRN (17:30)
[2018-12-20] MEDS ORDERED: ONDANSETRON 4MG/2ML VIAL (J2405) IV PRN (17:30)
[2018-12-20] MEDS ORDERED: NORCO, ANEXSIA 5/325MG TABLET (HYDROcodone/ACETAMINOPHEN) PO PRN (17:30)
[2018-12-20] MEDS: fentaNYL 100 MCG/2 ML INJECTION (J3010) IV PRN ×4 (17:41→18:01)
[2018-12-20] MEDS ORDERED: PERCOCET 5MG/325MG TAB PO PRN (18:00)
[2018-12-20] MEDS ORDERED: LR 1,000 ML IV SCH (18:00)
[2018-12-20 18:30] VITALS: BP 133/74
[2018-12-20 19:00] VITALS: BP 120/57
[2018-12-20 20:00] VITALS: BP 122/60
[2018-12-20] MEDS: DOCUSATE SODIUM 100 MG CAP PO SCH (20:51)
[2018-12-20] MEDS: ATORVASTATIN 20 MG TAB PO SCH (20:51)
[2018-12-20] MEDS: CARVedilol 6.25 MG TAB PO SCH (20:52)
[2018-12-20 21:00] VITALS: BP 110/58
[2018-12-20] MEDS ORDERED: GABAPENTIN 300 MG CAP PO SCH (21:00)
[2018-12-20 22:00] VITALS: BP 112/53
[2018-12-21] MEDS: NORCO, ANEXSIA 5/325MG TABLET (HYDROcodone/ACETAMINOPHEN) PO PRN ×3 (00:11→12:51)
[2018-12-21 01:00] VITALS: BP 109/53
[2018-12-21 05:00] VITALS: BP 110/56
[2018-12-21 06:07] LABS: BASO % 0.4 % (0.0-1.0); EOS # 0.4 10^3/uL (0.0-0.50); EOS % 4.4 % (0.0-3.0); HEMOGLOBIN 9.8 g/dl (12.0-15.5); LYMPH # 1.1 10^3/uL (1.5-4.5); LYMPH % 11.8 % (24.0-44.0); MEAN CORPUSCULAR HEMOGLOBIN 30.2 pg (27.0-33.0); MEAN CORPUSCULAR HGB CONC 31.6 g/dl (32.0-36.5); MEAN CORPUSCULAR VOLUME 95.7 fl (80.0-96.0); MONO # 1.1 10^3/uL (0.0-0.8); MONO % 12.3 % (0.0-5.0); NEUTROPHILS # 6.3 10^3/uL (1.8-7.7); NEUTROPHILS % 70.4 % (36.0-66.0); PLATELET COUNT, AUTOMATED 173 10^3/uL (150-450); RED BLOOD COUNT 3.24 10^6/uL (4.00-5.40)
[2018-12-21 06:32] LABS: CALCIUM LEVEL 8.3 MG/DL (8.8-10.2); CREATININE FOR GFR 2.46 MG/DL (0.55-1.30); GLOMERULAR FILTRATION RATE 20.8 (>45); POTASSIUM SERUM 4.6 MEQ/L (3.5-5.1)
[2018-12-21 06:33] LABS: INR 1.12; PROTHROMBIN TIME 14.6 SECONDS (12.1-14.4)
[2018-12-21] MEDS: DOCUSATE SODIUM 100 MG CAP PO SCH (08:35)
[2018-12-21] MEDS: ATORVASTATIN 20 MG TAB PO SCH (08:35)
[2018-12-21] MEDS ORDERED: HYDROCODONE PO (08:36)
[2018-12-21] MEDS ORDERED: ACETAMINOPHEN PO (08:36)
--- NOTE | 2018-12-21 08:40 | IPNPDOC ---
Subjective General Date/Time Seen The patient was seen on 12/21/18 at 08:36. Subject Chief Complaint/History The patient is a 68-year-old female admitted with a reason for visit of Dystrophic Fat/Panniculitis Lower Abdomen. Patient seen this morning, reports pain at the incision site, denies nausea or vomiting. Denies any shortness of breath, chest pains. Current Medications Current Medications Current Medications Acetaminophen (Tylenol Tab) 650 mg Q4HP PRN PO MILD PAIN or TEMP > 101; Start 12/20/18 at 17:30 Acetaminophen/ Hydrocodone Bitart ([place], Anexsia 5/325) 1 tab Q4HP PRN PO MODERATE PAIN (PS 5-7) Last administered on 12/20/18at 22:03; Start 12/20/18 at 17:30 Acetaminophen/ Hydrocodone Bitart ([place], Anexsia 5/325) 2 tab Q6HP PRN PO SEVERE PAIN (PS 8-10) Last administered on 12/21/18at 06:26; Start 12/20/18 at 17:30 Albuterol Sulfate (Proventil Neb) 2.5 mg RQ4H PRN INH SHORTNESS OF BREATH; Start 12/20/18 at 17:30 Atorvastatin Calcium (Lipitor) 40 mg DAILY PO Last administered on 12/20/18at 20:51; Start 12/20/18 at 09:00 Carvedilol (COReg) 6.25 mg BID PO Last administered on 12/20/18at 20:52; Start 12/20/18 at 21:00 Docusate Sodium (Colace) 100 mg BID PO Last administered on 12/20/18at 20:51; Start 12/20/18 at 21:00 Enoxaparin Sodium (Lovenox) 30 mg DAILY SC ; Start 12/21/18 at 09:00 Fentanyl Citrate (Sublimaze) 25 mcg Q5MP PRN IV MODERATE PAIN (PS 4-7) Last administered on 12/20/18at 18:01; Start 12/20/18 at 18:00; Stop 12/20/18 at 18:20; Status DC Ferrous Gluconate (Fergon) 324 mg Q2D PO ; Start 12/22/18 at 09:00 Fluticasone Propionate (Flonase 0.05% Nasal [place]) 1 spray DAILY NA ; Start 12/21/18 at 09:00 Furosemide (Lasix) 40 mg DAILY PO ; Start 12/21/18 at 09:00 Gabapentin (Neurontin) 300 mg QHS PO Last administered on 12/20/18at 20:51; Sta rt 12/20/18 at 21:00 Insulin Detemir (Levemir Insulin) 40 units DAILY SC ; Start 12/21/18 at 09:00 Ketorolac Tromethamine (ToRADol) 7.5 mg Q6HP PRN IV MILD/MODERATE PAIN (PS 1- 7); Start 12/20/18 at 17:30; Stop 12/25/18 at 17:29 Lactated Ringer's 1,000 ml @ 70 mls/hr [id number] IV ; Start 12/20/18 at 18:00; Stop 12/20/18 at 19:00; Status DC Magnesium Oxide (Mag-Ox) 400 mg Q2D PO ; Start 12/21/18 at 09:00 Montelukast Sodium (Singulair) 10 mg DAILY PO ; Start 12/21/18 at 09:00 Morphine Sulfate (Morphine Sulfate Inj) 2 mg Q2HP PRN IV SEVERE PAIN (PS 8-10); Start 12/20/18 at 17:30 Ondansetron HCl (ZOFRAN INJection) 4 mg Q6HP PRN IV NAUSEA OR VOMITING; Start 12/20/18 at 17:30 Oxycodone/ Acetaminophen (Percocet 5mg/ 325mg Tablet) 1 tab ASDIRECTED PRN PO MILD/MODERATE PAIN (PS 1-7) Last administered on 12/20/18at 18:05; Start 12/20/18 at 18:00; Stop 12/20/18 at 19:00; Status DC Allergies Coded Allergies: TAPE (Verified Allergy, Intermediate, reddness swelling, 12/16/18) tetanus immune globulin (Verified Allergy, Intermediate, SWELLING, 12/16/18) Contrast Media (Verified Adverse Reaction, Intermediate, kidney failure, 12/16/18) Objective Physical Examination Examination GENERAL APPEARANCE: Relatively comfortable. SKIN: Warm and dry. LUNGS: Clear to auscultation bilaterally. No wheezing appreciated. HEART: No chest wall abnormalities. Regular rate and rhythm. ABDOMEN: Abdomen is markedly obese, round, soft, she has 2 incisions over her left and right lower pannus both covered with gauze and Tegaderms. Minimal staining on both gauze dressings. No obvious skin bruising or hematoma formation. Mildly tender on palpation. EXTREMITIES: Extremities have no deformities. No edema identified. Vital Signs Vital Signs Date Time Temp Pulse Resp B/P (MAP) Pulse Ox O2 Delivery O2 Flow Rate FiO2 12/21/18 06:56 16 12/21/18 06:26 70 95 2.0 12/21/18 05:00 97.4 110/56 (74) I&Os I&O- Last 24 Hours up to 6 AM 12/21/18 06:00 Intake Total 1240 ml Output Total 370 ml Balance 870 ml Laboratory Data Labs 24H Laboratory Tests 2 12/20/18 13:01: Prothrombin Time 14.7H, Prothromb Time International Ratio 1.13, Activated Partial Thromboplast Time 36.0 12/20/18 14:22: Bedside Glucose (Misc Panel) 87 12/20/18 17:32: Bedside Glucose (Misc Panel) 134H 12/21/18 05:52: Prothrombin Time 14.6H, Prothromb Time International Ratio 1.12, Anion Gap 8, Glomerular Filtration Rate 20.8L, Blood Urea Nitrogen 44H, Creatinine 2.46H, Sodium Level 139, Potassium Level 4.6, Chloride Level 111H, Carbon Dioxide Level 20L, Calcium Level 8.3L 12/21/18 05:53: Immature Granulocyte % (Auto) 0.7, White Blood Count 9.0, Red Blood Count 3.24L, Hemoglobin 9.8L, Hematocrit 31.0L, Mean Corpuscular Volume 95.7, Mean Corpuscular Hemoglobin 30.2, Mean Corpuscular Hemoglobin Concent 31.6L, Red Cell Distribution Width 15.9H, Platelet Count 173, Neutrophils (%) (Auto) 70.4H, Lymphocytes (%) (Auto) 11.8L, Monocytes (%) (Auto) 12.3H, Eosinophils (%) (Auto) 4.4H, Basophils (%) (Auto) 0.4, Neutrophils # (Auto) 6.3, Lymphocytes # (Auto) 1.1L, Monocytes # (Auto) 1.1H, Eosinophils # (Auto) 0.4, Basophils # (Auto) 0.0, Nucleated Red Blood Cells % (auto) 0.0 CBC/BMP Laboratory Tests 12/21/18 05:52 Calcium Level 8.3 L 12/21/18 05:53 Red Blood Count 3.24 L, Mean Corpuscular Volume 95.7, Mean Corpuscular Hemoglobin 30.2, Mean Corpuscular Hemoglobin Concent 31.6 L, Red Cell Distribution Width 15.9 H, Neutrophils (%) (Auto) 70.4 H, Lymphocytes (%) (Auto) 11.8 L, Monocytes (%) (Auto) 12.3 H, Eosinophils (%) (Auto) 4.4 H, Basophils (%) (Auto) 0.4, Neutrophils # (Auto) 6.3, Lymphocytes # (Auto) 1.1 L, Monocytes # (Auto) 1.1 H, Eosinophils # (Auto) 0.4, Basophils # (Auto) 0.0 Impression Lipodystrophy bilateral pannus I discussed with her the operative findings hardened fat tissue which a really suspect probably is from her insulin shots though she denies placing insulin in those areas. Other etiologies could be just infarctions, swelling irritation or bleeding. Her dressings are dry with minimal staining. Okay to go home today. OK to restart her Coumadin. I discussed with her postoperative incision care. Follow-up with me in 2 weeks. Plan / VTE VTE Prophylaxis Ordered?: No VTE Exclusion Pharmacological: Other (patient on Coumadin) KIESHA AKBAR MD Dec 21, 2018 08:40
[2018-12-21 08:43] VITALS: BP 122/59
[2018-12-21] MEDS: CARVedilol 6.25 MG TAB PO SCH (08:43)
[2018-12-21 09:00] VITALS: BP 114/55
[2018-12-21] MEDS ORDERED: LEVEMIR (INSULIN DETEMIR) 1 UNITS/0.01ML SC SCH (09:00)
[2018-12-21] MEDS ORDERED: FUROSEMIDE 40 MG TAB PO SCH (09:00)
[2018-12-21] MEDS ORDERED: MONTELUKAST 10 MG TAB PO SCH (09:00)
[2018-12-21] MEDS ORDERED: MAGNESIUM OXIDE 400 MG TAB (MAG-OX) PO SCH (09:00)
[2018-12-21] MEDS ORDERED: FLUTICASONE PROP 0.05% NASAL SPRAY 16 GM (FLONASE) SCH (09:00)
[2018-12-21] MEDS ORDERED: ENOXAPARIN 30 MG/0.3 ML SYR (J1650) SC SCH (09:00)
[2018-12-22] MEDS ORDERED: FERROUS GLUCONATE 324 MG TAB PO SCH (09:00)
== END 2018-12-21 15:00 | disposition home or self-care (01) ==
LOC: M SDC 12:41 → M MS5PR 16:20 → M OR 16:42 → M MS5PR 18:25 → M SDC 12-21 15:00
PROVIDERS: ATTEND Surgery
DX: M79.3 Panniculitis, unspecified (principal); I11.9 Hypertensive heart disease without heart failure; E78.00 Pure hypercholesterolemia, unspecified; E11.9 Type 2 diabetes mellitus without complications; I48.91 Unspecified atrial fibrillation; J44.9 Chronic obstructive pulmonary disease, unspecified; G47.30 Sleep apnea, unspecified; K74.69 Other cirrhosis of liver; E66.01 Morbid (severe) obesity due to excess calories; Z79.01 Long term (current) use of anticoagulants; Z79.4 Long term (current) use of insulin; Z79.899 Other long term (current) drug therapy; Z91.040 Latex allergy status; Z88.7 Allergy status to serum and vaccine; Z91.041 Radiographic dye allergy status; Z95.810 Presence of automatic (implantable) cardiac defibrillator
CPT/HCPCS: 15830; 36415; 80048; 85025; 85610; 85730; 88302; 94640; 96372; J0690; J1100; J1650; J2250; J2370; J2405; J3010

== ENCOUNTER → 2019-01-25 | Outpatient (CLI) | payer MEDICARE ==
[~2019-01-25] MED LIST changes: +ACETAMINOPHEN PO; +HYDROCODONE PO
--- NOTE | 2019-01-25 10:37 | REP ---
Complete abdominal sonography: History: Patient with suspected the hepatic cirrhosis. Evaluate liver morphology, spleen, ascites and rule out hepatocellular carcinoma. Comparison CT study November 15, 2018. Sonographic findings: Scanning through the right upper quadrant of the abdomen demonstrates multiple shadowing stones in a somewhat thick-walled gallbladder. Gallbladder wall measures up to 0.4 cm in thickness. No pericholecystic fluid is seen. Common bile duct is normal measuring 0.5 cm in greatest diameter. The umbilical vein is patent and recannulated. Main portal vein is dilated measuring 18.7 cm in diameter. Coarse echotexture is seen in the liver with a macro nodular contour consistent with cirrhosis. No focal liver lesion is seen. The liver is not enlarged. The spleen is enlarged measuring 17.3 cm x 12.9 cm x 5.7 cm. No focal splenic lesion is seen. Somewhat limited views of the pancreas show no abnormality. There is a sliver of fluid in the right upper quadrant here the right lobe of the liver. No other evidence of ascites. Renal cortical echogenicity pattern is normal and contours are smooth in both kidneys. There is no evidence of hydronephrosis. There are bilateral renal cortical cysts. In the right kidney they are too complex cyst measuring 1.8 and 1.6 cm in greatest diameter respectively. On the left there is a 1.3 x 1.8 cm cysts. Left renal dimensions are 12.0 x 7.9 x 5.5 cm. The right kidney measures 13.3 x 6.9 x 6.8 cm. Impression: 1. Cholelithiasis with some gallbladder wall thickening. 2. Evidence of cirrhosis and possibly portal venous hypertension as above. No focal liver mass lesion. 3. Splenomegaly. 4. Bilateral renal cortical cysts. 5. There is a sliver of ascites. Electronically Signed by Lorenzo Moody MD 01/25/2019 05:17 P
== END ==
LOC: M RAD 08:24
PROVIDERS: ATTEND Internal Medicine Gastroenterology
DX: K74.60 Unspecified cirrhosis of liver (principal); K80.20 Calculus of gallbladder without cholecystitis without obstruction; R16.1 Splenomegaly, not elsewhere classified; N28.1 Cyst of kidney, acquired

== ENCOUNTER → 2019-02-01 | Outpatient (REF) | payer MEDICARE ==
[~2019-02-01] MED LIST changes: +ALL10TAB28 PO; +DIGO0.25 PO; +MAGN400T PO; +ROCA0.5C PO; +TYLETAB14 PO; +VENTAER INH
== END ==
LOC: M LAB REF 13:41
PROVIDERS: ATTEND Surgery
DX: L90.5 Scar conditions and fibrosis of skin (principal); S71.101A Unspecified open wound, right thigh, initial encounter; X58.XXXA Exposure to other specified factors, initial encounter; Y92.9 Unspecified place or not applicable
CPT/HCPCS: 11106; 88304; G0463

== ENCOUNTER → 2019-02-06 | Outpatient (CLI) | payer MEDICARE ==
[~2019-02-06] MED LIST changes: -ALL10TAB28 PO; -DIGO0.25 PO; -MAGN400T PO; -ROCA0.5C PO; -TYLETAB14 PO; -VENTAER INH
[2019-02-06 18:16] LABS: BASO % 0.4 % (0.0-1.0); EOS # 0.7 10^3/uL (0.0-0.50); EOS % 7.5 % (0.0-3.0); HEMATOCRIT 31.6 % (36.0-47.0); HEMOGLOBIN 9.8 g/dl (12.0-15.5); LYMPH # 1.3 10^3/uL (1.5-4.5); LYMPH % 13.8 % (24.0-44.0); MEAN CORPUSCULAR HEMOGLOBIN 29.4 pg (27.0-33.0); MEAN CORPUSCULAR VOLUME 94.9 fl (80.0-96.0); MONO % 10.5 % (0.0-5.0); NEUTROPHILS # 6.1 10^3/uL (1.8-7.7); NEUTROPHILS % 66.8 % (36.0-66.0); PLATELET COUNT, AUTOMATED 210 10^3/uL (150-450); RED BLOOD COUNT 3.33 10^6/uL (4.00-5.40); WHITE BLOOD COUNT 9.2 10^3/uL (4.0-10.0)
[2019-02-06 18:19] LABS: CREATININE FOR GFR 2.17 MG/DL (0.55-1.30); POTASSIUM SERUM 4.7 MEQ/L (3.5-5.1)
== END ==
LOC: M LABDRWAD 14:36
PROVIDERS: ATTEND Physician Assistant
DX: R06.02 Shortness of breath (principal)

== ENCOUNTER → 2019-02-06 | Outpatient (CLI) | payer MEDICARE ==
--- NOTE | 2019-02-06 15:03 | REP ---
Clinical: Acute bronchitis. Shortness of breath. Technique: PA and lateral. Comparison: 05/05/2018. Findings: Cardiomegaly with pacemaker appears stable. Lung duval demonstrate chronic changes without obvious acute consolidation, effusion, or pneumothorax. Skeletal structures demonstrate age-related changes. Impression: Chronic stable changes. No acute cardiopulmonary process appreciated. Electronically Signed by Armani Richards MD 02/06/2019 02:54 P
== END ==
LOC: M ADAMS 14:31
PROVIDERS: ATTEND Physician Assistant
DX: I51.7 Cardiomegaly (principal); J20.9 Acute bronchitis, unspecified; R06.02 Shortness of breath; Z95.0 Presence of cardiac pacemaker

== ENCOUNTER → 2019-02-14 | Outpatient (REF) | payer MEDICARE ==
[2019-02-14 19:19] LABS: TOTAL PROTEIN,RANDOM URINE 220.2 MG/DL (0.0-12.0); URINE TOTAL PROTEIN 220.2 MG/DL (0-12)
[2019-02-14 19:27] LABS: COMPLEMENT C3 167 MG/DL (90-180); COMPLEMENT C4 30 MG/DL (10-40); FERRITIN 144 NG/ML (8-252); IRON (FE) 85 UG/DL (50-170); PERCENT SATURATION 29.8 % (13.2-45.0); TOTAL IRON BINDING CAPACITY 285 UG/DL (250-450); TOTAL PROTEIN 7.2 GM/DL (6.4-8.2)
[2019-02-15 11:18] LABS: ALBUMIN 3.37 GM/DL (3.29-5.55); ALBUMIN % 46.8 % (55.8-66.1); ALPHA-1-GLOBULIN % 4.9 % (2.9-4.9); ALPHA-1-GLOBULINS 0.35 GM/DL (0.17-0.41)
[2019-02-15 11:19] LABS: ALPHA-2-GLOBULINS 0.87 GM/DL (0.42-0.99); ALPHA-2-GLOBULINS % 12.1 % (7.1-11.8); BETA-1-GLOBULINS 0.52 GM/DL (0.28-0.60); BETA-1-GLOBULINS % 7.2 % (4.7-7.2); BETA-2-GLOBULINS 0.62 GM/DL (0.19-0.55); BETA-2-GLOBULINS % 8.6 % (3.2-6.5); GAMMA GLOBULIN % 20.4 % (11.1-18.8); GAMMA GLOBULINS 1.47 GM/DL (0.65-1.58)
[2019-02-16 10:00] LABS: HEPATITIS B SURFACE ANTIGEN NEGATIVE (NEGATIVE)
[2019-02-17 10:33] LABS: URINE VOLUME RANDOM ML
[2019-02-17 10:34] LABS: UPEP INTERPRETATION NO M-SPIKE NOTED
[2019-02-18 15:46] LABS: ANCA-ATYPICAL <1:20 titer (Neg:<1:20); ANTI DS-DNA AB <1:10 titer (.); ANTI-GLOMERULAR BASEMENT MEMB 4 units (0-20); ANTINUCLEAR ANTIBODIES DIRECT Negative (Negative); CYTOPLASMIC NEUTROP AB ANCA-C <1:20 titer (Neg:<1:20); FREE KAPPA LIGHT CHAINS SERUM 75.1 mg/L (3.3-19.4); FREE LAMBDA LIGHT CHAINS SERUM 37.3 mg/L (5.7-26.3); KAPPA/LAMBDA RATIO SERUM 2.01 (0.26-1.65); PERINUCLEAR AB ANCA-P <1:20 titer (Neg:<1:20)
== END ==
LOC: M LAB REF 17:12
PROVIDERS: ATTEND Internal Medicine Nephrology
DX: N18.4 Chronic kidney disease, stage 4 (severe) (principal); R80.9 Proteinuria, unspecified; D63.1 Anemia in chronic kidney disease

== ENCOUNTER 2019-02-25 09:31 | Inpatient (IN) | payer MEDICARE ==
[~2019-02-25] VITALS: Ht 154.9 cm; Wt 115.0 kg
[2019-02-25] MEDS ORDERED: IPRATROPIUM 0.5MG/ALBUTEROL 2.5MG INH SOL UD 3ML (DUONEB)(J7620) NEB ONE ×2 (10:00→13:00)
[2019-02-25 10:41] LABS: BASO % 0.5 % (0.0-1.0); EOS # 0.6 10^3/uL (0.0-0.50); EOS % 8.7 % (0.0-3.0); HEMATOCRIT 32.9 % (36.0-47.0); HEMOGLOBIN 10.3 g/dl (12.0-15.5); LYMPH % 12.9 % (24.0-44.0); MEAN CORPUSCULAR HEMOGLOBIN 30.2 pg (27.0-33.0); MEAN CORPUSCULAR HGB CONC 31.3 g/dl (32.0-36.5); MEAN CORPUSCULAR VOLUME 96.5 fl (80.0-96.0); MONO # 0.5 10^3/uL (0.0-0.8); MONO % 6.5 % (0.0-5.0); NEUTROPHILS # 5.2 10^3/uL (1.8-7.7); NEUTROPHILS % 70.6 % (36.0-66.0); PLATELET COUNT, AUTOMATED 182 10^3/uL (150-450); RED BLOOD COUNT 3.41 10^6/uL (4.00-5.40); WHITE BLOOD COUNT 7.4 10^3/uL (4.0-10.0)
[2019-02-25 10:59] LABS: INR 1.83; PROTHROMBIN TIME 21.5 SECONDS (12.1-14.4)
[2019-02-25 11:19] LABS: ALBUMIN 2.8 GM/DL (3.2-5.2); BILIRUBIN,DIRECT 0.1 MG/DL (0.0-0.2); BILIRUBIN,TOTAL 0.3 MG/DL (0.2-1.0); CK-MB VALUE MASS 3.1 NG/ML (<3.6); DIGOXIN LEVEL 0.9 NG/ML (0.5-2.0); MAGNESIUM LEVEL 2.1 MG/DL (1.8-2.4); MB/CK RELATIVE INDEX 2.56 (< OR =4); THYROID STIMULATING HORMONE 1.2 uIU/ML (0.358-3.740); THYROXINE (T4) 9.2 UG/DL (4.5-12.0); TOTAL PROTEIN 7.1 GM/DL (6.4-8.2); TROPONIN I 0.04 NG/ML (< 0.10)
[2019-02-25] MEDS ORDERED: ALBUTEROL SULFATE 2.5 MG/0.5 ML INH NEB SOLN INH ONE (11:30)
[2019-02-25] MEDS ORDERED: methylPREDNISolone INJ 125 MG/2 ML VIAL (J2930) IV ONE (11:30)
[2019-02-25] MEDS ORDERED: FUROSEMIDE 100 MG/10 ML VIAL (J1940) IV ONE (12:00)
[2019-02-25] MEDS ORDERED: ACET-683 PO (12:10)
[2019-02-25] MEDS ORDERED: MAGN400T PO (12:10)
[2019-02-25] MEDS ORDERED: ALL10TAB28 PO (12:10)
[2019-02-25] MEDS ORDERED: ROCA0.5C PO (12:10)
[2019-02-25] MEDS ORDERED: DIGO0.25 PO (12:10)
[2019-02-25] MEDS ORDERED: TYLETAB14 PO (12:10)
[2019-02-25] MEDS ORDERED: VENTAER INH (12:18)
[2019-02-25] MEDS ORDERED: GLUCAGON FOR INJ 1 MG VIAL (J1610) SC PRN (13:00)
[2019-02-25] MEDS ORDERED: DEXTROSE 50% 50 ML SYRINGE IV PRN (13:00)
[2019-02-25] MEDS ORDERED: IPRATROPIUM 0.5MG/ALBUTEROL 2.5MG INH SOL UD 3ML (DUONEB)(J7620) NEB PRN (13:00)
[2019-02-25] MEDS ORDERED: GLUCOSE 4 GM CHEW TABLET PO PRN (13:00)
--- NOTE | 2019-02-25 14:46 | REP ---
Chest one-view HISTORY: Cough Comparison: 02/06/2019 The lungs are clear. The cardiac silhouette is enlarged. The pulmonary vasculature is normal in appearance. A cardiac pacemaker is present. Impression: Cardiomegaly. Electronically Signed by Garfield Hargrove MD 02/25/2019 10:18 A
--- NOTE | 2019-02-25 15:16 | REP ---
CT CHEST WITHOUT IV CONTRAST: CT chest performed without IV contrast. Sagittal and coronal reconstruction images are performed. There is mild bibasilar fibroatelectatic change. No infiltrate is seen in either lung. There is moderate cardiomegaly. There is no axillary or mediastinal adenopathy. There is a left-sided pacemaker noted. There is atherosclerotic calcification of the thoracic aorta without aneurysm. There is no pleural effusion. There is mild pericardial fluid which is unchanged since prior study of 06/29/2018. Multiple gallstones are seen in a normal sized gallbladder with no gallbladder wall edema. Adrenal glands are normal. There is a hyperdense cyst in the visualized right kidney, unchanged since prior study as well. There are degenerative changes of the spine. IMPRESSION: Mild bibasilar fibroatelectatic changes. Moderate cardiomegaly. Mild chronic pericardial fluid. Multiple gallstones in the gallbladder. Electronically Signed by Jose Allred MD 02/25/2019 07:36 P
[2019-02-25] MEDS: IPRATROPIUM 0.5MG/ALBUTEROL 2.5MG INH SOL UD 3ML (DUONEB)(J7620) NEB SCH ×3 (16:53→23:24)
[2019-02-25 17:05] VITALS: BP 152/70
[2019-02-25] MEDS: FUROSEMIDE 100 MG/10 ML VIAL (J1940) IV SCH (18:42)
[2019-02-25] MEDS: HumaLOG INSULIN (NovoLOG) PER UNIT SC SCH ×2 (18:43→21:00)
[2019-02-25] MEDS: WARFARIN SOD 5 MG TAB PO SCH (18:43)
--- NOTE | 2019-02-25 18:56 | HPEPDOC ---
General Date of Admission Feb 25, 2019 at 12:51 Date of Service: Feb 25, 2019 Chief Complaint The patient is a 69-year-old female admitted with a reason for visit of CHF. History of Present Illness 69-year-old female with past medical history of diastolic congestive heart failure, hypertension, diabetes, chronic kidney disease stage IV, asthma, and DEEDEE on CPAP presents to the ER with a chief complaint of increased shortness of breath. The patient states that she has been feeling short of breath for the last 3 weeks. She went to urgent care and was prescribed a tapering dose of steroids and antibiotics which alleviated her symptoms somewhat. However, the patient states that she continued to have a cough, shortness of breath, and increased lower extremity edema. She was seen by her PCP who increased her Lasix dose, but this did not help the patient's symptoms. She also endorses a 4-5 pound weight gain during this time. She presents to the ER for further evaluation and management. Currently, the patient denies any complaint of fevers, chills, chest pain, palpitations, abdominal pain, or any nausea/vomiting/diarrhea. Home Medications Scheduled Ammonium Lactate (Ammonium Lactate) 12 % Cre, 1 APLCT TOP BID, (Reported) APPLY TO FEET Atorvastatin Calcium (Atorvastatin Calcium) 40 Mg Tab, 40 MG PO DAILY, (Reported) Calcitriol (Rocaltrol) 0.5 Mcg Capsule, 0.5 MCG PO 1XWK, (Reported) SATURDAYS Carvedilol (Carvedilol) 6.25 Mg Tab, 6.25 MG PO BID, (Reported) Cetirizine HCl (Cetirizine HCl) 10 Mg Tablet, 10 MG PO DAILY, (Reported) Digoxin (Digoxin) 250 Mcg Tablet, 250 MCG PO 3XW, (Reported) THURSDAY,THURSDAY,THURSDAY Docusate Sodium (Colace) 100 Mg Cap, 100 MG PO BID, (Reported) Ergocalciferol (Vitamin D2) (Vitamin D2) 50,000 Unit Cap, 50,000 UNIT PO 1XWK, (Reported) THURSDAY MORNINGS Ferrous Gluconate (Ferrous Gluconate) 324 Mg Tab, 324 MG PO Q2D, (Reported) Fluticasone Propionate (Flonase Allergy Relief) 50 Mcg/Act Spr, 1 SPRAY NA DAILY , (Reported) Furosemide (Furosemide) 40 Mg Tab, 80 MG PO DAILY, (Reported) Gabapentin (Neurontin) 300 Mg Cap, 300 MG PO QHS, (Reported) Insulin (Humulin R U-500) 1 Units/0.002 Ml Inj, 10 UNITS SC DAILY, (Reported) PT USES 10-15 UNITS DAILY. NEVER MORE THEN 20 UNITS. VERIFIED WITH PT THAT T HIS IS HER DOSE. Insulin Glargine (Lantus) 1 Units/0.01 Ml Susp, 50 UNITS SC DAILY, (Reported) Magnesium Oxide (Magnesium Oxide) 400 Mg Tablet, 400 MG PO Q2D, (Reported) Montelukast Sodium (Montelukast Sodium) 10 Mg Tab, 10 MG PO DAILY, (Reported) Warfarin Sodium (Warfarin Sodium) 5 Mg Tab, 5 MG PO 2XW, (Reported) THURSDAY,THURSDAY Warfarin Sodium (Coumadin) 2.5 Mg Tab, 2.5 MG PO 5XW, (Reported) ,THU,,SAT,SUN Scheduled PRN Acetaminophen (Acetaminophen) 500 Mg Tablet, 1,000 MG PO Q8H PRN for PAIN, (Reported) Acetaminophen with Codeine (Tylenol with Codeine #3 Tablet) 1 Each Tablet, 1 TAB PO Q12H PRN for PAIN, (Reported) Albuterol Sulf (Albuterol Sulfate) 2.5 Mg/3 Ml Nebu, 2.5 MG INH Q4H PRN for SHORTNESS OF BREATH, (Reported) Albuterol Sulfate (Ventolin Hfa) 18 Gm Hfa.aer.ad, 2 PUFF INH Q4H PRN for SHORTNESS OF BREATH, (Reported) Allergies Coded Allergies: TAPE (Verified Allergy, Intermediate, reddness swelling, 02/25/19) tetanus immune globulin (Verified Allergy, Intermediate, SWELLING, 02/25/19) Contrast Media (Verified Adverse Reaction, Intermediate, kidney failure, 02/25/19) Past Medical History Medical History As noted in HPI. Surgical History TONSILLECTOMY CHILD ADNOIDECTOMY CHILD BL EYE SURGERIES X 5 VENTRAL HERNIA REPAIR X 2 (DONE IN [place]) 2011, 2014 CARDIAC PACEMEKER X 2 08/2005,08/2015 HEART CATHETERIZATION X 2 EGD - GASTRITIS, GASTRIC ULCERS, DUODENITIS. COLONOSCOPY - DIVERTICULOSIS, INTERNAL HEMORRHOIDS (DR. PEREZ) 06/2018 ABDOMINAL MASS 12/2018 Social History * Smoker: Denies Alcohol: Denies Drugs: denies Review of Systems Other systems 10 point review of systems negative unless otherwise specified in HPI. Physical Examination General Exam: Positive: Alert, Cooperative, No Acute Distress ENT Exam: Positive: Atraumatic, Mucous membr. moist/pink Chest Exam: Positive: Rales (faint bibasilar rales noted auscultation), Diminished Heart Exam: Positive: Rate Normal, Normal S1, Normal S2 Abdomen Exam: Positive: Soft; Negative: Tenderness Extremity Exam: Positive: Edema (2+ pitting edema in the lower extremities bilaterally); Negative: Tenderness Psych Exam: Positive: Oriented x 3 Vital Signs Vital Signs Date Time Temp Pulse Resp B/P (MAP) Pulse Ox O2 Delivery O2 Flow Rate FiO2 02/25/19 17:05 97.4 70 20 152/70 (97) 96 02/25/19 16:41 Room Air 02/25/19 16:31 2.0 Laboratory Data Labs 24H Laboratory Tests 2 02/25/19 10:28: Immature Granulocyte % (Auto) 0.8, White Blood Count 7.4, Red Blood Count 3.41L, Hemoglobin 10.3L, Hematocrit 32.9L, Mean Corpuscular Volume 96.5H, Mean Corpuscular Hemoglobin 30.2, Mean Corpuscular Hemoglobin Concent 31.3L, Red Cell Distribution Width 15.3H, Platelet Count 182, Neutrophils (%) (Auto) 70.6H, Lymphocytes (%) (Auto) 12.9L, Monocytes (%) (Auto) 6.5H, Eosinophils (%) (Auto) 8.7H, Basophils (%) (Auto) 0.5, Neutrophils # (Auto) 5.2, Lymphocytes # (Auto) 1.0L, Monocytes # (Auto) 0.5, Eosinophils # (Auto) 0.6H, Basophils # (Auto) 0.0, Nucleated Red Blood Cells % (auto) 0.0, Prothrombin Time 21.5H, Prothromb Time International Ratio 1.83, Magnesium Level 2.1, Aspartate Amino Transf (AST/SGOT) 44H, Alanine Aminotransferase (ALT/SGPT) 27, Alkaline Phosphatase 243H, Total Bilirubin 0.3, Direct Bilirubin 0.1, Total Creatine Kinase 121, Creatine Kinase MB 3.1, Creatine Kinase MB Relative Index 2.56, Troponin I 0.04, MO-Nfe-W-Type Natriuretic Peptide 1397H, Total Protein 7.1, Albumin 2.8L, Albumin/Globulin Ratio 0.65L, Thyroid Stimulating Hormone (TSH) 1.200, Thyroxine (T4) 9.2, Digoxin Level 0.9 02/25/19 10:33: POC Glucose (Misc Panel) 211H, POC Sodium (Misc Panel) 143, POC Potassium (Misc Panel) 4.0, POC Chloride (Misc Panel) 110H, POC Total CO2 (Misc Panel) 21.0L, POC Blood Urea Nitrogen (Misc Panel 64H, POC Ionized Calcium (Misc Panel) 5.1, POC Creatinine (Misc Panel) 2.5H, POC Hematocrit (Misc Panel) 30.0L 02/25/19 17:11: Bedside Glucose (Misc Panel) 246H CBC/BMP Laboratory Tests 02/25/19 10:28 Red Blood Count 3.41 L, Mean Corpuscular Volume 96.5 H, Mean Corpuscular Hemoglobin 30.2, Mean Corpuscular Hemoglobin Concent 31.3 L, Red Cell Distribution Width 15.3 H, Neutrophils (%) (Auto) 70.6 H, Lymphocytes (%) (Auto) 12.9 L, Monocytes (%) (Auto) 6.5 H, Eosinophils (%) (Auto) 8.7 H, Basophils (%) (Auto) 0.5, Neutrophils # (Auto) 5.2, Lymphocytes # (Auto) 1.0 L, Monocytes # (Auto) 0.5, Eosinophils # (Auto) 0.6 H, Basophils # (Auto) 0.0 Plan / VTE VTE Prophylaxis Ordered?: Yes Plan Plan Decompensated Diastolic CHF Radiographically no acute findings on CXR of CHF However, clinically patient with symptoms of CHF, weight gain, and B/L lower extremity edema consistent with CHF pattern Improved symptoms with IV Lasix in the ER Cont IV Lasix 60mg BID Daily Weights Monitor I/O's Fluid Restriction We'll continue to monitor the patient's volume/respiratory status Chronic kidney disease stage IV Serum creatinine at baseline Paroxysmal atrial fibrillation Continue Coumadin, Coreg, digoxin Diabetes mellitus Continue regimen as ordered Morbid obesity Complicating care Obstructive sleep apnea on CPAP May use on device History of asthma, stable No audible wheezing noted on auscultation Dyslipidemia Continue statin Peripheral neuropathy Continue gabapentin DVT prophylaxis On Coumadin DENNISE FRANCES MD Feb 25, 2019 18:56
[2019-02-25 19:54] VITALS: BP 150/72
[2019-02-25] MEDS: CARVedilol 6.25 MG TAB PO SCH (21:00)
[2019-02-25] MEDS: GABAPENTIN 300 MG CAP PO SCH (21:00)
[2019-02-25] MEDS: DOCUSATE SODIUM 100 MG CAP PO SCH (21:00)
[2019-02-25] MEDS ORDERED: ACETAMINOPH W/CODEINE #3 TAB UD PO ONE (22:21)
[2019-02-25] MEDS: ACETAMINOPH W/CODEINE #3 TAB UD PO PRN (23:12)
[2019-02-25 23:59] VITALS: BP 142/70
[2019-02-26] MEDS: IPRATROPIUM 0.5MG/ALBUTEROL 2.5MG INH SOL UD 3ML (DUONEB)(J7620) NEB SCH ×6 (03:55→23:41)
[2019-02-26 04:00] VITALS: BP 132/70
--- NOTE | 2019-02-26 05:41 | ECGEPIP ---
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
[2019-02-26 08:00] VITALS: BP 178/98
[2019-02-26] MEDS: LEVEMIR (INSULIN DETEMIR) 1 UNITS/0.01ML SC SCH (08:19)
[2019-02-26] MEDS: FUROSEMIDE 100 MG/10 ML VIAL (J1940) IV SCH ×2 (08:19→17:16)
[2019-02-26] MEDS: HumaLOG INSULIN (NovoLOG) PER UNIT SC SCH ×4 (08:19→20:38)
[2019-02-26] MEDS: DOCUSATE SODIUM 100 MG CAP PO SCH ×2 (08:20→20:39)
[2019-02-26] MEDS: FLUTICASONE PROP 0.05% NASAL SPRAY 16 GM (FLONASE) SCH (08:20)
[2019-02-26] MEDS: MONTELUKAST 10 MG TAB PO SCH (08:20)
[2019-02-26] MEDS: CETIRIZINE (ZyrTEC) 10 MG TAB PO SCH (08:20)
[2019-02-26] MEDS: ATORVASTATIN 20 MG TAB PO SCH (08:20)
[2019-02-26] MEDS: CARVedilol 6.25 MG TAB PO SCH ×2 (08:20→20:39)
[2019-02-26 08:31] LABS: HEMATOCRIT 33.8 % (36.0-47.0); MEAN CORPUSCULAR HEMOGLOBIN 30.7 pg (27.0-33.0); MEAN CORPUSCULAR HGB CONC 32.5 g/dl (32.0-36.5); MEAN CORPUSCULAR VOLUME 94.4 fl (80.0-96.0); PLATELET COUNT, AUTOMATED 193 10^3/uL (150-450); RED BLOOD COUNT 3.58 10^6/uL (4.00-5.40); WHITE BLOOD COUNT 10.8 10^3/uL (4.0-10.0)
[2019-02-26 08:43] LABS: INR 1.42; PROTHROMBIN TIME 17.6 SECONDS (12.1-14.4)
[2019-02-26 08:53] LABS: ALBUMIN 3.3 GM/DL (3.2-5.2); BILIRUBIN,TOTAL 0.3 MG/DL (0.2-1.0); CALCIUM LEVEL 9.3 MG/DL (8.8-10.2); CREATININE FOR GFR 2.51 MG/DL (0.55-1.30); GLOMERULAR FILTRATION RATE 20.3 (>45); MAGNESIUM LEVEL 2.1 MG/DL (1.8-2.4); TOTAL PROTEIN 7.9 GM/DL (6.4-8.2)
[2019-02-26] MEDS: ACETAMINOPH W/CODEINE #3 TAB UD PO PRN ×2 (10:43→21:57)
[2019-02-26 12:00] VITALS: BP 170/80
[2019-02-26] MEDS: ACETAMINOPHEN TAB 650MG DOSE (2X325MG) PO PRN (14:41)
[2019-02-26 16:00] VITALS: BP 158/72
--- NOTE | 2019-02-26 16:42 | IPNPDOC ---
Subjective Date Seen The patient was seen on 02/26/19. Subjective Chief Complaint/HPI feels better, notes significant help with Duoneb. Eyes: Denies: Pain Skin: Denies: Rash Pulmonary: Reports: Cough; Denies: Dyspnea, Pleuritic Chest Pain Cardiovascular: Denies: Chest Pain, Orthopnea Gastrointestinal: Denies: Nausea, Abdominal Pain Psych: Reports: Mood Normal Objective Physical Examination General Exam: Positive: Alert, Cooperative, No Acute Distress ENT Exam: Positive: Atraumatic, Mucous membr. moist/pink Chest Exam: Positive: Diminished; Negative: Rales, Wheezing Heart Exam: Positive: Rate Normal, Normal S1, Normal S2 Abdomen Exam: Positive: Soft; Negative: Tenderness Extremity Exam: Positive: Other (previously noted edema has improved per patient); Negative: Tenderness Psych Exam: Positive: Oriented x 3 Assessment /Plan Problems (1) Asthma Status: Acute Response to Treatment: Improving Problem Text: recently seen in UC and given prednisone with improvement but symptoms gradually returned. (2) CKD (chronic kidney disease), stage IV Status: Chronic Response to Treatment: Worse Problem Text: may require Nephro consult if continuing upward Creatinine trend. 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 recently dig was added according to patient. Plan/VTE VTE Prophylaxis Ordered?: Yes VS, I&O, 24H, Fishbone Vital Signs/I&O Vital Signs Date Time Temp Pulse Resp B/P (MAP) Pulse Ox O2 Delivery O2 Flow Rate FiO2 02/26/19 16:00 98.3 70 16 158/72 (100) 97 02/25/19 16:41 Room Air 02/25/19 16:31 2.0 I&O- Last 24 Hours up to 6 AM 02/26/19 06:00 Intake Total 1140 ml Output Total 1375 ml Balance -235 ml Laboratory Data 24H LABS Laboratory Tests 2 02/25/19 17:11: Bedside Glucose (Misc Panel) 246H 02/25/19 20:56: Bedside Glucose (Misc Panel) 309H 02/26/19 07:52: Nucleated Red Blood Cells % (auto) 0.0, Prothrombin Time 17.6H, Prothromb Time International Ratio 1.42, Anion Gap 9, Glomerular Filtration Rate 20.3L, Blood Urea Nitrogen 66H, Creatinine 2.51H, Sodium Level 143, Potassium Level 4.0, Chloride Level 109H, Carbon Dioxide Level 25, Calcium Level 9.3, Aspartate Amino Transf (AST/SGOT) 37, Alanine Aminotransferase (ALT/SGPT) 27, Alkaline Phosphatase 225H, Total Bilirubin 0.3, Total Protein 7.9, Albumin 3.3, Magnesium Level 2.1, Albumin/Globulin Ratio 0.72L 02/26/19 07:56: Bedside Glucose (Misc Panel) 164H 02/26/19 11:57: Bedside Glucose (Misc Panel) 142H CBC/BMP Laboratory Tests 02/26/19 07:52 Red Blood Count 3.58 L, Mean Corpuscular Volume 94.4, Mean Corpuscular Hemoglobin 30.7, Mean Corpuscular Hemoglobin Concent 32.5, Red Cell Distribution Width 14.8 H, Calcium Level 9.3, Aspartate Amino Transf (AST/SGOT) 37, Alanine Aminotransferase (ALT/SGPT) 27, Alkaline Phosphatase 225 H, Total Bilirubin 0.3, Total Protein 7.9, Albumin 3.3 Jon Hahn MD Feb 26, 2019 16:42
[2019-02-26] MEDS: WARFARIN SOD 2.5 MG TAB PO SCH (17:17)
[2019-02-26 20:00] VITALS: BP 120/80
[2019-02-26] MEDS: GABAPENTIN 300 MG CAP PO SCH (20:39)
[2019-02-26 23:29] VITALS: BP 130/72
[2019-02-27] MEDS: IPRATROPIUM 0.5MG/ALBUTEROL 2.5MG INH SOL UD 3ML (DUONEB)(J7620) NEB SCH ×6 (03:18→23:27)
[2019-02-27] MEDS: ACETAMINOPHEN TAB 650MG DOSE (2X325MG) PO PRN ×3 (03:40→23:03)
[2019-02-27 04:00] VITALS: BP 122/76
[2019-02-27 06:19] LABS: HEMATOCRIT 34.5 % (36.0-47.0); HEMOGLOBIN 10.8 g/dl (12.0-15.5); MEAN CORPUSCULAR HEMOGLOBIN 29.8 pg (27.0-33.0); MEAN CORPUSCULAR HGB CONC 31.3 g/dl (32.0-36.5); MEAN CORPUSCULAR VOLUME 95.3 fl (80.0-96.0); PLATELET COUNT, AUTOMATED 181 10^3/uL (150-450); RED BLOOD COUNT 3.62 10^6/uL (4.00-5.40); WHITE BLOOD COUNT 9.6 10^3/uL (4.0-10.0)
[2019-02-27 06:40] LABS: CALCIUM LEVEL 8.8 MG/DL (8.8-10.2); CREATININE FOR GFR 2.69 MG/DL (0.55-1.30); GLOMERULAR FILTRATION RATE 18.7 (>45); POTASSIUM SERUM 3.8 MEQ/L (3.5-5.1)
[2019-02-27 06:41] LABS: INR 1.59; PROTHROMBIN TIME 19.2 SECONDS (12.1-14.4)
[2019-02-27] MEDS: HumaLOG INSULIN (NovoLOG) PER UNIT SC SCH ×4 (07:30→21:00)
[2019-02-27 08:00] VITALS: BP 148/69
[2019-02-27] MEDS: LEVEMIR (INSULIN DETEMIR) 1 UNITS/0.01ML SC SCH (08:28)
[2019-02-27] MEDS: CETIRIZINE (ZyrTEC) 10 MG TAB PO SCH (08:28)
[2019-02-27] MEDS: FUROSEMIDE 100 MG/10 ML VIAL (J1940) IV SCH (08:28)
[2019-02-27] MEDS: FERROUS GLUCONATE 324 MG TAB PO SCH (08:28)
[2019-02-27] MEDS: ATORVASTATIN 20 MG TAB PO SCH (08:28)
[2019-02-27] MEDS: MAGNESIUM OXIDE 400 MG TAB (MAG-OX) PO SCH (08:28)
[2019-02-27] MEDS: DOCUSATE SODIUM 100 MG CAP PO SCH ×2 (08:28→20:13)
[2019-02-27] MEDS: FLUTICASONE PROP 0.05% NASAL SPRAY 16 GM (FLONASE) SCH (08:29)
[2019-02-27] MEDS: MONTELUKAST 10 MG TAB PO SCH (08:29)
[2019-02-27] MEDS: CARVedilol 6.25 MG TAB PO SCH ×2 (08:29→20:13)
[2019-02-27] MEDS: ACETAMINOPH W/CODEINE #3 TAB UD PO PRN ×2 (09:24→20:18)
[2019-02-27] MEDS ORDERED: SLF 3 ML SYR IV PRN (10:45)
[2019-02-27 12:00] VITALS: BP 144/68
[2019-02-27] MEDS: SLF 3 ML SYR IV SCH ×2 (13:53→22:52)
--- NOTE | 2019-02-27 13:58 | IPNPDOC ---
Subjective Date Seen The patient was seen on 02/27/19. Subjective Chief Complaint/HPI nuisance cough; no dyspnea Eyes: Denies: Pain ENT: Denies: Head Aches Pulmonary: Denies: Dyspnea, Pleuritic Chest Pain Cardiovascular: Denies: Chest Pain, Orthopnea Gastrointestinal: Denies: Nausea, Abdominal Pain Genitourinary: Denies: Dysuria Neurological: Denies: Weakness Psych: Reports: Mood Normal Objective Physical Examination General Exam: Positive: Alert, Cooperative, No Acute Distress ENT Exam: Positive: Atraumatic, Mucous membr. moist/pink Chest Exam: Positive: Diminished, Other (minimal inspiratory squeaks that clear by the 3rd breath, left mid lung field posteriorly); Negative: Rales, Wheezing Heart Exam: Positive: Rate Normal, Normal S1, Normal S2 Abdomen Exam: Positive: Soft; Negative: Tenderness Extremity Exam: Positive: Other (previously noted edema has improved per patient); Negative: Tenderness Psych Exam: Positive: Oriented x 3 Assessment /Plan Problems (1) Asthma Status: Acute Response to Treatment: Improving Problem Text: 02/27: nuisance cough especially triggered by talking. recently seen in UC and given prednisone with improvement but symptoms gradually returned. (2) CKD (chronic kidney disease), stage IV Status: Chronic Response to Treatment: Worse Problem Text: 02/27; creatine a little higher, if up again tomorrow then consult nephrology. she has seen Dr. Alicia Kinney recently as outpt. may require Nephro consult if continuing upward Creatinine trend. 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 recently dig was added according to patient. Plan/VTE VTE Prophylaxis Ordered?: Yes VS, I&O, 24H, Fishbone Vital Signs/I&O Vital Signs Date Time Temp Pulse Resp B/P (MAP) Pulse Ox O2 Delivery O2 Flow Rate FiO2 02/27/19 12:00 97.1 70 18 144/68 (93) 97 02/25/19 16:41 Room Air 02/25/19 16:31 2.0 I&O- Last 24 Hours up to 6 AM 02/27/19 06:00 Intake Total 900 ml Output Total 2325 ml Balance -1425 ml Laboratory Data 24H LABS Laboratory Tests 2 02/26/19 16:57: Bedside Glucose (Misc Panel) 171H 02/26/19 20:31: Bedside Glucose (Misc Panel) 279H 02/27/19 05:59: Nucleated Red Blood Cells % (auto) 0.0, Prothrombin Time 19.2H, Prothromb Time International Ratio 1.59, Anion Gap 9, Glomerular Filtration Rate 18.7L, Blood Urea Nitrogen 85H, Creatinine 2.69H, Sodium Level 141, Potassium Level 3.8, Chloride Level 108H, Carbon Dioxide Level 24, Calcium Level 8.8 02/27/19 11:16: Bedside Glucose (Misc Panel) 130H CBC/BMP Laboratory Tests 02/27/19 05:59 Red Blood Count 3.62 L, Mean Corpuscular Volume 95.3, Mean Corpuscular Hemoglobin 29.8, Mean Corpuscular Hemoglobin Concent 31.3 L, Red Cell Distribution Width 15.2 H, Calcium Level 8.8 Jon Hahn MD Feb 27, 2019 13:58
[2019-02-27] MEDS: BENZONATATE 100 MG CAP PO SCH ×2 (15:59→20:13)
[2019-02-27] MEDS: WARFARIN SOD 2.5 MG TAB PO SCH (15:59)
[2019-02-27 16:00] VITALS: BP 127/60
[2019-02-27 20:00] VITALS: BP 130/61
[2019-02-27] MEDS: GABAPENTIN 300 MG CAP PO SCH (20:13)
[2019-02-27] MEDS: MOM 30ML SUSPENSION UDC PO PRN (21:40)
[2019-02-28] VITALS (7 sets, daily range): BP systolic 125–173; BP diastolic 58–81
[2019-02-28] MEDS: IPRATROPIUM 0.5MG/ALBUTEROL 2.5MG INH SOL UD 3ML (DUONEB)(J7620) NEB SCH ×6 (03:28→23:44)
[2019-02-28 04:43] LABS: HEMATOCRIT 32.6 % (36.0-47.0); HEMOGLOBIN 10.4 g/dl (12.0-15.5); MEAN CORPUSCULAR HEMOGLOBIN 29.7 pg (27.0-33.0); MEAN CORPUSCULAR HGB CONC 31.9 g/dl (32.0-36.5); MEAN CORPUSCULAR VOLUME 93.1 fl (80.0-96.0); PLATELET COUNT, AUTOMATED 185 10^3/uL (150-450); WHITE BLOOD COUNT 8.9 10^3/uL (4.0-10.0)
[2019-02-28 04:53] LABS: INR 1.66; PROTHROMBIN TIME 19.9 SECONDS (12.1-14.4)
[2019-02-28 05:05] LABS: CREATININE FOR GFR 2.41 MG/DL (0.55-1.30); GLOMERULAR FILTRATION RATE 21.3 (>45); POTASSIUM SERUM 3.9 MEQ/L (3.5-5.1)
[2019-02-28] MEDS: SLF 3 ML SYR IV SCH ×3 (05:26→22:53)
[2019-02-28] MEDS: MOM 30ML SUSPENSION UDC PO PRN (07:39)
[2019-02-28] MEDS: LEVEMIR (INSULIN DETEMIR) 1 UNITS/0.01ML SC SCH (07:39)
[2019-02-28] MEDS: HumaLOG INSULIN (NovoLOG) PER UNIT SC SCH ×4 (07:40→21:00)
[2019-02-28] MEDS: BENZONATATE 100 MG CAP PO SCH ×3 (07:40→21:27)
[2019-02-28] MEDS: CETIRIZINE (ZyrTEC) 10 MG TAB PO SCH (07:41)
[2019-02-28] MEDS: MONTELUKAST 10 MG TAB PO SCH (07:41)
[2019-02-28] MEDS: ATORVASTATIN 20 MG TAB PO SCH (07:41)
[2019-02-28] MEDS: DOCUSATE SODIUM 100 MG CAP PO SCH (07:41)
[2019-02-28] MEDS: CARVedilol 6.25 MG TAB PO SCH ×2 (07:41→21:29)
[2019-02-28] MEDS ORDERED: DIGOXIN 0.25 MG TAB PO SCH (09:00)
[2019-02-28] MEDS ORDERED: predniSONE 20 MG TAB PO ONE (09:45)
--- NOTE | 2019-02-28 10:08 | IPNPDOC ---
Subjective Date Seen The patient was seen on 02/28/19. Subjective Chief Complaint/HPI CHF Events since last encounter Continues with PAGE and cough with exertion. States had similar symptoms in january that resolved with prednisone. Has been cleared by PT. Skin: Denies: Rash, Lesions, Breakdown Pulmonary: Reports: Dyspnea, Cough Cardiovascular: Denies: Chest Pain, Palpitations, Orthopnea, Paroxysmal Noc. Dyspnea, Lt Headedness Gastrointestinal: Denies: Nausea, Vomiting, Abdominal Pain, Diarrhea, Constipation Genitourinary: Denies: Dysuria, Frequency, Incontinence, Retention Objective Physical Examination General Exam: Positive: Alert, Cooperative, No Acute Distress ENT Exam: Positive: Atraumatic, Mucous membr. moist/pink Chest Exam: Positive: Diminished, Other (occasional wheeze); Negative: Rales, Wheezing Heart Exam: Positive: Rate Normal, Normal S1, Normal S2 Abdomen Exam: Positive: Soft; Negative: Tenderness Extremity Exam: Positive: Other (previously noted edema has improved per patient); Negative: Tenderness Psych Exam: Positive: Oriented x 3 Assessment /Plan Problems (1) Asthma Status: Acute Response to Treatment: Improving Problem Text: 02/28/19: Started on prednisone. re-eval symptoms in am. Possible Dc home tomorrow. 02/27: nuisance cough especially triggered by talking. recently seen in UC and given prednisone with improvement but symptoms gradually returned. (2) CKD (chronic kidney disease), stage IV Status: Chronic Response to Treatment: Worse Problem Text: 02/28 2.4 (2.7) baseline cr 2.1-3.3 (3) Combined systolic and diastolic cardiac dysfunction Status: Chronic Response to Treatment: Stable Problem Text: close to euvolemic on HD fur 80 (4) Atrial fibrillation Status: Chronic Response to Treatment: Stable Problem Text: INR sub therapeutic. goal is 2-3 HD 5 MF/2.5 ROW 02/28 1.6 (1.5) continue 5 QD has biventricular pacer. recently dig was added according to patient. Plan/VTE VTE Prophylaxis Ordered?: Yes VS, I&O, 24H, Fishbone Vital Signs/I&O Vital Signs Date Time Temp Pulse Resp B/P (MAP) Pulse Ox O2 Delivery O2 Flow Rate FiO2 02/28/19 08:00 97.1 70 17 136/66 (89) 97 02/28/19 00:00 2.0 02/25/19 16:41 Room Air I&O- Last 24 Hours up to 6 AM 02/28/19 06:00 Intake Total 2090 ml Output Total 2415 ml Balance -325 ml Laboratory Data 24H LABS Laboratory Tests 2 02/27/19 11:16: Bedside Glucose (Misc Panel) 130H 02/27/19 15:49: Bedside Glucose (Misc Panel) 206H 02/27/19 21:43: Bedside Glucose (Misc Panel) 155H 02/28/19 04:15: Nucleated Red Blood Cells % (auto) 0.0, Prothrombin Time 19.9H, Prothromb Time International Ratio 1.66, Anion Gap 7L, Glomerular Filtration Rate 21.3L, Blood Urea Nitrogen 99H, Creatinine 2.41H, Sodium Level 140, Potassium Level 3.9, Chloride Level 108H, Carbon Dioxide Level 25, Calcium Level 9.0 CBC/BMP Laboratory Tests 02/28/19 04:15 Red Blood Count 3.50 L, Mean Corpuscular Volume 93.1, Mean Corpuscular Hemoglobin 29.7, Mean Corpuscular Hemoglobin Concent 31.9 L, Red Cell Distribution Width 15.4 H, Calcium Level 9.0 Deborah Shoemaker Feb 28, 2019 10:08 Will Steiner M.D. Feb 28, 2019 17:28
[2019-02-28] MEDS: FLUTICASONE PROP 0.05% NASAL SPRAY 16 GM (FLONASE) SCH (10:53)
[2019-02-28] MEDS: FUROSEMIDE 80 MG TAB PO SCH (10:53)
[2019-02-28] MEDS: ACETAMINOPH W/CODEINE #3 TAB UD PO PRN ×2 (10:54→21:31)
[2019-02-28] MEDS ORDERED: FLEET ENEMA PR PRN (14:15)
[2019-02-28] MEDS: WARFARIN SOD 5 MG TAB PO SCH (17:54)
[2019-02-28] MEDS: SENOKOT S TAB PO SCH (21:27)
[2019-02-28] MEDS: GABAPENTIN 300 MG CAP PO SCH (21:28)
[2019-03-01] MEDS: IPRATROPIUM 0.5MG/ALBUTEROL 2.5MG INH SOL UD 3ML (DUONEB)(J7620) NEB SCH ×2 (02:42→08:15)
[2019-03-01] MEDS: ACETAMINOPHEN TAB 650MG DOSE (2X325MG) PO PRN (03:46)
[2019-03-01] MEDS: SLF 3 ML SYR IV SCH (05:06)
[2019-03-01 06:00] VITALS: BP 166/68
[2019-03-01 06:15] LABS: HEMATOCRIT 32.4 % (36.0-47.0); HEMOGLOBIN 10.6 g/dl (12.0-15.5); MEAN CORPUSCULAR HEMOGLOBIN 29.8 pg (27.0-33.0); MEAN CORPUSCULAR HGB CONC 32.7 g/dl (32.0-36.5); PLATELET COUNT, AUTOMATED 200 10^3/uL (150-450); RED BLOOD COUNT 3.56 10^6/uL (4.00-5.40); WHITE BLOOD COUNT 11.3 10^3/uL (4.0-10.0)
[2019-03-01 06:28] LABS: INR 1.87; PROTHROMBIN TIME 21.9 SECONDS (12.1-14.4)
[2019-03-01 06:38] LABS: CALCIUM LEVEL 9.3 MG/DL (8.8-10.2); CREATININE FOR GFR 2.36 MG/DL (0.55-1.30); GLOMERULAR FILTRATION RATE 21.8 (>45); POTASSIUM SERUM 3.7 MEQ/L (3.5-5.1)
[2019-03-01] MEDS ORDERED: IPRA0.00 NEB (07:36)
[2019-03-01] MEDS ORDERED: BENZ-18 PO (07:36)
[2019-03-01] MEDS ORDERED: PRED10TA2 PO (07:37)
[2019-03-01] MEDS: HumaLOG INSULIN (NovoLOG) PER UNIT SC SCH (08:19)
[2019-03-01] MEDS: ATORVASTATIN 20 MG TAB PO SCH (08:19)
[2019-03-01] MEDS: BENZONATATE 100 MG CAP PO SCH (08:20)
[2019-03-01] MEDS: CARVedilol 6.25 MG TAB PO SCH (08:20)
[2019-03-01] MEDS: MAGNESIUM OXIDE 400 MG TAB (MAG-OX) PO SCH (08:20)
[2019-03-01] MEDS: FUROSEMIDE 80 MG TAB PO SCH (08:21)
[2019-03-01] MEDS: FERROUS GLUCONATE 324 MG TAB PO SCH (08:21)
[2019-03-01] MEDS: SENOKOT S TAB PO SCH (08:21)
[2019-03-01] MEDS: CETIRIZINE (ZyrTEC) 10 MG TAB PO SCH (08:21)
[2019-03-01] MEDS: LEVEMIR (INSULIN DETEMIR) 1 UNITS/0.01ML SC SCH (08:21)
[2019-03-01] MEDS: MONTELUKAST 10 MG TAB PO SCH (08:21)
[2019-03-01] MEDS: ACETAMINOPH W/CODEINE #3 TAB UD PO PRN (08:22)
[2019-03-01] MEDS: FLUTICASONE PROP 0.05% NASAL SPRAY 16 GM (FLONASE) SCH (08:22)
[2019-03-01] MEDS ORDERED: predniSONE 10 MG TAB PO SCH (09:00)
--- NOTE | 2019-03-01 14:27 | DSES ---
DATE OF ADMISSION: 02/25/2019 DATE OF DISCHARGE: 03/01/2019 PRIMARY CARE PROVIDER: SUDHA Fox ATTENDING PHYSICIAN: Dr. Roshan Covington HISTORY OF PRESENT ILLNESS: This is a 69-year-old female with a past medical history of diastolic congestive heart failure, hypertension, diabetes, chronic kidney disease stage 4, asthma, sleep apnea on CPAP, who presented to the emergency department (ED) with complaints of increasing shortness of breath. The patient had complained of shortness of breath for three weeks prior to her presentation. She had been seen at an urgent care and was given a tapered dose of steroids and antibiotics which mildly alleviated her symptoms, however, she continued with a cough and shortness of breath with lower extremity edema. The patient was noted to have a 4-5 pound weight gain and was worked up in the ED and advised admission for congestive heart failure (CHF) exacerbation. HOSPITAL COURSE: The patient was diuresed accordingly with IV furosemide. She was noted to have some mild increase in her creatinine to 2.6. Her Lasix was held at that point. Her creatinine has continued to come down. She has resumed her home dose of furosemide at 80 mg daily and has tolerated that well and her creatinine has returned to baseline at 2.3. The patient has had continuing cough during the hospital stay associated with her history of asthma. She feels that the DuoNeb nebulizers have provided more relief than the albuterol that she has at home. She was also given some Tessalon Perles and started on a tapering course of prednisone which she notes has improved. She does tolerate her baseline activities and has been cleared by physical therapy to return home. CONSULTATIONS DURING HOSPITALIZATION: None. IMAGING: Includes chest x-ray which proved positive for cardiomegaly, otherwise negative. She had a chest CT completed as well which proved positive for again moderate cardiomegaly and multiple gallstones in the gallbladder, mild chronic pericardial fluid. PHYSICAL EXAMINATION: Today, the patient's blood pressure is 166/68, respiratory rate 16, oxygen saturation 94% on room air, heart rate 68. She is afebrile with a temperature of 97.5. Most recent labs show a CBC with a hemoglobin of 10, hematocrit of 32, white blood cell count 11,000, and platelets 200. CMP shows a creatinine of 2.36, electrolytes are stable. HEENT: Neck is supple without lymphadenopathy or jugular venous distention (JVD). Cardiovascular: Heart rate and rhythm are regular. Pulmonary: Diminished bibasilar, otherwise clear. Bilateral lower extremities are with some mild edema, however, the patient states that this is at her baseline. DISCHARGE DIAGNOSES: 1. Decompensated combined systolic and diastolic heart failure. 2. Asthma exacerbation. 3. Atrial fibrillation. 4. Chronic kidney disease stage 4. 5. Type 2 diabetes. 6. Obstructive sleep apnea. PLAN: The patient will be discharged to home. Diet is carbohydrate consistent, 2 gram sodium diet, on 1800 mL fluid restriction. Activity is as tolerated. MEDICATIONS: - Tessalon Perles 100 mg one by mouth three times a day for the next 7 days - DuoNeb every 6 hours as needed for shortness of breath and wheezing - prednisone 10 mg tabs three by mouth daily for the next 5 days, further tapering can be managed by PCP upon reevaluation - Tylenol 1 gram by mouth every 8 hours as needed for pain - Tylenol with codeine one tab by mouth every 12 hours as needed for pain - albuterol nebulizers every 4 hours as needed for shortness of breath - albuterol HFA 2 puffs every 4 hours as needed for shortness of breath - ammonium lactate one application topically twice a day - atorvastatin calcium 40 mg by mouth daily - calcitriol 0.5 mcg by mouth weekly - carvedilol 6.25 mg o twice a day - cetirizine 10 mg by mouth daily - digoxin 250 mcg by mouth three times per week - Colace 100 mg by mouth twice a day - vitamin D2 50,000 international units by mouth weekly - ferrous gluconate 324 mg tablets by mouth every 2 days - Flonase one spray to each nostril daily - furosemide 80 mg by mouth daily - gabapentin 300 mg capsule by mouth at bedtime - insulin Humulin R U-500 10 units subcutaneous daily - Lantus 50 units subcutaneous daily - magnesium oxide 400 mg by mouth every 2 days - Singulair 10 mg by mouth daily - warfarin 5 mg tablet by mouth twice per week - warfarin sodium 2.5 mg tablet by mouth 5 times per week The patient's INRs are maintained by her flumer. She has a planned check for tomorrow. INR today is 1.87 and has been continuing to climb during her hospitalization. I anticipate it will be within her goal by tomorrow. There was a note to review with her flumer her carvedilol perhaps being transitioned to bisoprolol secondary to her history of asthma. This can be reviewed with her flumer and PCP on an outpatient basis. The patient is discharged in stable and satisfactory condition with no further questions at the time of discharge.
== END 2019-03-01 10:16 | disposition home or self-care (01) | DRG 291 ==
LOC: M ED 09:31 → M ED INP 12:51 → M PCU 17:01 → M MSPAV 02-28 16:29
PROVIDERS: ADMIT Internal Medicine; ATTEND Family Medicine
DX: I13.0 Hypertensive heart and chronic kidney disease with heart failure and stage 1 through stage 4 chronic kidney disease, or unspecified chronic kidney disease (principal); I50.43 Acute on chronic combined systolic (congestive) and diastolic (congestive) heart failure; N18.4 Chronic kidney disease, stage 4 (severe); J45.901 Unspecified asthma with (acute) exacerbation; Z68.42 Body mass index [BMI] 45.0-49.9, adult; E11.22 Type 2 diabetes mellitus with diabetic chronic kidney disease; E78.5 Hyperlipidemia, unspecified; I48.0 Paroxysmal atrial fibrillation; E11.42 Type 2 diabetes mellitus with diabetic polyneuropathy; E66.01 Morbid (severe) obesity due to excess calories; G47.33 Obstructive sleep apnea (adult) (pediatric); Z79.4 Long term (current) use of insulin; Z79.01 Long term (current) use of anticoagulants; Z79.899 Other long term (current) drug therapy; Z88.7 Allergy status to serum and vaccine; Z91.048 Other nonmedicinal substance allergy status; Z91.040 Latex allergy status; Z95.0 Presence of cardiac pacemaker

== ENCOUNTER → 2019-03-10 | Outpatient (REF) | payer MEDICARE ==
[~2019-03-10] MED LIST changes: +ALDA25TA2 PO; +ALL10TAB29 PO; +ALLO10TA PO; +ATOR1TAB21 PO; +BASA100I SC; +BENZ-18 PO; +BUME1TAB3 PO; +CALC1CAP31 PO; +CARV12.5 PO; +COUM1TAB17 PO; +CYMB1CAP5 PO; +DIGO0.123 PO; +DIGO0.253 PO; +ELIQ2.5T PO; +FLOM0.4C39 PO; -FLON1SPR; +HYDR-3713 PO; +HYDR-4514 PO; +IPRA0.00 INH; +IPRA0.00 NEB; +MAGN400T3 PO; +METO1TAB87 PO; +OXYC1TAB23 PO; +PRED10TA2 PO; +PRED25TA PO; +PRES10CA2 PO; +RENV2TAB PO; +RISATAB3 PO; +ROCA0.5C PO; +SANT250O8 TOP; +SODI325T9 PO; +SPIR-10 PO; +TESS100C PO; +TORS100T PO; +TORS20TA2 PO; +TYLETAB14 PO; +VENTAER INH; +XALA0.007 OU; +XELP0.00 OP
[2019-03-10 12:46] LABS: CALCIUM LEVEL 8.6 MG/DL (8.8-10.2); CREATININE FOR GFR 2.49 MG/DL (0.55-1.30); GLOMERULAR FILTRATION RATE 20.5 (>45); POTASSIUM SERUM 4.6 MEQ/L (3.5-5.1)
[2019-03-10 13:24] LABS: HEMOGLOBIN A1c 6.4 %
== END ==
LOC: M SFHCADAM 10:06
PROVIDERS: ATTEND Family Medicine
DX: E11.22 Type 2 diabetes mellitus with diabetic chronic kidney disease (principal); N18.4 Chronic kidney disease, stage 4 (severe)

== ENCOUNTER → 2019-04-15 | Outpatient (REF) | payer MEDICARE ==
[~2019-04-15] MED LIST changes: -ALDA25TA2 PO; +ALL10TAB28 PO; -ALL10TAB29 PO; -ALLO10TA PO; -ATOR1TAB21 PO; -BASA100I SC; -BUME1TAB3 PO; -CALC1CAP31 PO; -CARV12.5 PO; -COUM1TAB17 PO; -CYMB1CAP5 PO; -DIGO0.123 PO; +DIGO0.25 PO; -DIGO0.253 PO; -ELIQ2.5T PO; -FLOM0.4C39 PO; +FLON1SPR; -HYDR-3713 PO; -HYDR-4514 PO; -IPRA0.00 INH; +MAGN400T PO; -MAGN400T3 PO; -METO1TAB87 PO; -OXYC1TAB23 PO; -PRED25TA PO; -PRES10CA2 PO; -RENV2TAB PO; -RISATAB3 PO; -SANT250O8 TOP; -SODI325T9 PO; -SPIR-10 PO; -TESS100C PO; -TORS100T PO; -TORS20TA2 PO; -XALA0.007 OU; -XELP0.00 OP
[2019-04-15 13:52] LABS: INR 3.53; PROTHROMBIN TIME 35.4 SECONDS (11.8-14.0)
== END ==
LOC: M LABDRWAD 12:07 → M LABDRAW1 12:07
PROVIDERS: ATTEND Physician Assistant
DX: I48.0 Paroxysmal atrial fibrillation (principal)

== ENCOUNTER → 2019-04-15 | Outpatient (REF) | payer MEDICARE ==
[2019-04-15 14:11] LABS: HEMOGLOBIN A1c 7.5 %
== END ==
LOC: M SFHCADAM 09:14
PROVIDERS: ATTEND Physician Assistant
DX: J44.9 Chronic obstructive pulmonary disease, unspecified (principal); E11.22 Type 2 diabetes mellitus with diabetic chronic kidney disease; N18.3 Chronic kidney disease, stage 3 (moderate)

== ENCOUNTER → 2019-04-18 | Outpatient (REF) | payer MEDICARE ==
[~2019-04-18] MED LIST changes: +BASA100I SC; +CARV12.5 PO; +IPRA0.00 INH; +PRED25TA PO; +PRES10CA2 PO; +TESS100C PO; +TORS20TA2 PO
[2019-04-18 19:57] LABS: ALBUMIN 3.2 GM/DL (3.2-5.2); CALCIUM LEVEL 8.7 MG/DL (8.8-10.2); CREATININE FOR GFR 2.79 MG/DL (0.55-1.30); PHOSPHORUS LEVEL 4.4 MG/DL (2.5-4.9); POTASSIUM SERUM 3.9 MEQ/L (3.5-5.1)
== END ==
LOC: M LABDRWAD 12:07
PROVIDERS: ATTEND Physician Assistant
DX: I42.0 Dilated cardiomyopathy (principal)

== ENCOUNTER 2019-04-26 19:11 | Inpatient (IN) | payer MEDICARE ==
[~2019-04-26] VITALS: Ht 154.9 cm; Wt 114.1 kg
[2019-04-26] MEDS: DOCUSATE SODIUM 100 MG CAP PO SCH (02:16)
[2019-04-26] MEDS: CARVedilol 12.5 MG TAB PO SCH (02:17)
[~2019-04-26 19:11] MED LIST changes: -BASA100I SC; -CARV12.5 PO; -IPRA0.00 INH; -PRED25TA PO; -PRES10CA2 PO; -TESS100C PO; -TORS20TA2 PO
[2019-04-26] MEDS ORDERED: FUROSEMIDE 100 MG/10 ML VIAL (J1940) IV ONE (19:30)
[2019-04-26 20:23] LABS: BASO % 0.5 % (0.0-1.0); EOS # 0.2 10^3/uL (0.0-0.50); EOS % 2.5 % (0.0-3.0); HEMATOCRIT 28.9 % (36.0-47.0); HEMOGLOBIN 9.1 g/dl (12.0-15.5); LYMPH % 11.8 % (24.0-44.0); MEAN CORPUSCULAR HEMOGLOBIN 31.2 pg (27.0-33.0); MEAN CORPUSCULAR HGB CONC 31.5 g/dl (32.0-36.5); MONO # 0.8 10^3/uL (0.0-0.8); NEUTROPHILS # 5.9 10^3/uL (1.8-7.7); NEUTROPHILS % 72.8 % (36.0-66.0); PLATELET COUNT, AUTOMATED 157 10^3/uL (150-450); RED BLOOD COUNT 2.92 10^6/uL (4.00-5.40); WHITE BLOOD COUNT 8.1 10^3/uL (4.0-10.0)
[2019-04-26] MEDS: IPRATROPIUM 0.5MG/ALBUTEROL 2.5MG INH SOL UD 3ML (DUONEB)(J7620) NEB PRN ×2 (20:43→21:07)
[2019-04-26 21:00] LABS: ALBUMIN 2.7 GM/DL (3.2-5.2); BILIRUBIN,DIRECT 0.1 MG/DL (0.0-0.2); BILIRUBIN,TOTAL 0.3 MG/DL (0.2-1.0); CK-MB VALUE MASS 2.3 NG/ML (<3.6); CREATININE FOR GFR 2.45 MG/DL (0.55-1.30); GLOMERULAR FILTRATION RATE 20.9 (>45); MB/CK RELATIVE INDEX 1.47 (< OR =4); POTASSIUM SERUM 3.7 MEQ/L (3.5-5.1); TOTAL PROTEIN 6.4 GM/DL (6.4-8.2); TROPONIN I 0.04 NG/ML (< 0.10)
[2019-04-26 22:37] LABS: INR 2.45; PROTHROMBIN TIME 26.4 SECONDS (11.8-14.0)
[2019-04-26] MEDS ORDERED: BASA100I SC (23:14)
[2019-04-26] MEDS ORDERED: TORS20TA2 PO (23:14)
[2019-04-26] MEDS ORDERED: TESS100C PO (23:15)
[2019-04-26] MEDS ORDERED: CARV12.5 PO (23:15)
[2019-04-26] MEDS ORDERED: PRED25TA PO (23:15)
[2019-04-26] MEDS ORDERED: WARF-23 PO (23:15)
[2019-04-26] MEDS ORDERED: IPRA0.00 INH (23:15)
[2019-04-26] MEDS ORDERED: PRES10CA2 PO (23:21)
--- NOTE | 2019-04-26 23:25 | HPEPDOC ---
[facility] Medical History & Physical Date of Admission Apr 27, 2019 Date of Service: Apr 27, 2019 Primary Care Physician: Roshan Covington MD Attending Physician: MARIAELENA MCKINNEY MD History and Physical Time of service 11:05 PM CHIEF COMPLAINT: Dyspnea HISTORY OF PRESENT ILLNESS: is a 63 old female who presents with complaints of dyspnea that begun on Thursday. On she went to [place] with her , and admits to eating foods that she did not prepare herself, and drinking more fluids than usual because of the heat. Since Thursday she has been experiencing dyspnea, after walking only 10 feet, & worsening bilateral lower extremity edema to the point that she can't get her shoes on. Overall, she reports that she feels like her CHF is acting up and she came in the hospital today because she wanted to get as bad as it was the last time she was admitted. She thinks she's gained about 20 pounds in the last 3 weeks. She denies unilateral leg swelling. She was last admitted in February for acute CHF. Per discussion with the ED attending she received Lasix; the patient reports voiding several times after receiving the medication and that she feels much better now than she did on arrival. REVIEW OF SYSTEMS: 12 point review of systems negative except as listed in HPI PAST MEDICAL / SURGICAL HISTORY: 1. Chronic diastolic congestive heart failure 2. Chronic hypertension. 3. 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 Stage IV kidney disease. 5. Chronic asthma. 6. DEEDEE/0HS, on CPAP. 7. Paroxysmal atrial fibrillation on Coumadin 8. History of vitamin D deficiency 9.Status post pacemaker placement. 10. History of iron deficiency/ History of GI bleed ( gastritis, gastric ulcers, duodenitis, diverticulosis and hemorrhoids found on EGD and colonoscopy in 2018) 11. Nodular liver/cirrhosis visualized on CT of the abdomen 12. Status post ventral hernia repair 2. 13. Status post tonsillectomy. 14. Status post adenoidectomy. SOCIAL HISTORY: Denies smoking FAMILY HISTORY: Diabetes Hypertension ALLERGIES: Please see below. HOME MEDICATIONS: Please see below. PHYSICAL EXAMINATION: VITAL SIGNS: Temperature 97.8, pulse 100, respiratory 20, blood pressure 147/66, pulse oximetry 97% on room air GENERAL APPEARANCE: Obese, well-developed, not in apparent distress HEENT: Lips acyanotic mucous membranes slightly dry CARDIOVASCULAR: Continue systolic murmur, pulses are intact, +2 bilateral lower pitting edema LUNGS: Decreased breath sounds bilaterally, and able to perceive crackles at the lung bases ABDOMEN: Positive bowel sounds, obese, firm, nontender. Palpation MUSCULOSKELETAL: Range of motion intact 4 extremities NEUROLOGICAL: Cranial nerves II-12 grossly intact, speech is not dysarthric PSYCHIATRIC: Alert and oriented to person, place and time, able to understand and follow commands LABORATORY DATA: CBC was remarkable for hemoglobin 9.1 with MCV of 99, and platelet count of 157 The chemistry is remarkable for sodium of 147, chloride 113, BUN 55, creatinine of 2.45, GFR of 20.9, glucose of 172, AST 48, alkaline phosphatase of 280, and BNP greater than 1000 INR was 2.45 IMAGING: Chest x-ray, the final read is pending, but based on personal visualizations. There is cardiomegaly, congestion of the lung bases, and a pacemaker. MICROBIOLOGY: Please see below. ASSESSMENT: . Mrs. Vargas is a 63-year-old female with a past medical history of chronic diastolic congestive heart failure, chronic hypertension, multifactorial anemia, insulin dependent diabetes, stage IV kidney disease, chronic asthma, chronic, obesity hypoventilation syndrome, and paroxysmal A. fib will be admitted for evaluation of dyspnea, likely secondary to acute CHF. PLAN: 1. Acute Diastolic CHF / Chronic HTN Fluid overload secondary to noncompliance with salt and fluid restriction while traveling Currently she is partially compensated. Chest x-ray and BNP findings are as above. ADHERE Algorithm to predict in-hospital mortality in acute CHF = intermediate [facility] Plan: elevate head of bed to 50 degrees/ Is/OS, daily weights, fluid restriction to 2L or 67oz, salt restriction to 2G / lasix 60mg IV BID / control BP 2 Chronic asthma. Plan continue with home meds 3 Paroxysmal atrial fibrillation on Coumadin INR within range Plan continue with home meds / f/u INR daily 4.Macrocytic anemia History of iron deficiency/ History of GI bleed ( gastritis, gastric ulcers, duodenitis, diverticulosis and hemorrhoids found on EGD and colonoscopy in 2018) Plan: f/u CBC / monitor for bleeding / c/w iron 5. 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 Stage IV kidney disease. At baseline Plan continue with home meds 7. DEEDEE/0HS Plan nocturnal CPAP. 8.Transaminitis Possibly 2/[address] of abd commented on liver cirrhosis Plan: can f/u w PCP for repeat LFTs prior to determining if she needs additional testing DVT prophylaxis with Coumadin. Disposition pending clinical course Laboratory Data CBC/BMP Laboratory Tests 04/26/19 20:12 Red Blood Count 2.92 L, Mean Corpuscular Volume 99.0 H, Mean Corpuscular Hemoglobin 31.2, Mean Corpuscular Hemoglobin Concent 31.5 L, Red Cell Distribution Width 17.8 H, Neutrophils (%) (Auto) 72.8 H, Lymphocytes (%) (Auto) 11.8 L, Monocytes (%) (Auto) 10.0 H, Eosinophils (%) (Auto) 2.5, Basophils (%) (Auto) 0.5, Neutrophils # (Auto) 5.9, Lymphocytes # (Auto) 1.0 L, Monocytes # (Auto) 0.8, Eosinophils # (Auto) 0.2, Basophils # (Auto) 0.0 Home Medications Scheduled Atorvastatin Calcium (Atorvastatin Calcium) 40 Mg Tab, 40 MG PO DAILY Calcitriol (Rocaltrol) 0.5 Mcg Capsule, 0.5 MCG PO 1XWK SATURDAYS Carvedilol (Carvedilol) 12.5 Mg Tablet, 12.5 MG PO BID Cetirizine HCl (Cetirizine HCl) 10 Mg Tablet, 10 MG PO DAILY Digoxin (Digoxin) 250 Mcg Tablet, 250 MCG PO 3XW THURSDAY,THURSDAY,THURSDAY Docusate Sodium (Colace) 100 Mg Cap, 100 MG PO BID Ergocalciferol (Vitamin D2) (Vitamin D2) 50,000 Unit Cap, 50,000 UNIT PO 1XWK THURSDAY MORNINGS Ferrous Gluconate (Ferrous Gluconate) 324 Mg Tab, 324 MG PO Q2D Fluticasone Propionate (Flonase Allergy Relief) 50 Mcg/Act Spr, 1 SPRAY NA DAILY Gabapentin (Neurontin) 300 Mg Cap, 300 MG PO QHS Insulin (Humulin R U-500) 1 Units/0.002 Ml Inj, 10 UNITS SC DAILY BS<120= 0 UNITS; BS>120= 10 UNITS; BS AROUND 150= 15 UNITS; BS AROUND 160= 20 UNITS; BS>160= 50 UNITS Insulin Glargine,Hum.rec.anlog (Basaglar Kwikpen U-100) 100 Unit/1 Ml Insuln.pen, 50 UNIT SC DAILY Magnesium Oxide (Magnesium Oxide) 400 Mg Tablet, 400 MG PO Q2D Montelukast Sodium (Montelukast Sodium) 10 Mg Tab, 10 MG PO DAILY Prednisone (Prednisone) 2.5 Mg Tablet, 2.5 MG PO Q2D Torsemide (Torsemide) 20 Mg Tablet, 40 MG PO DAILY Vit C/E/Zn/Coppr/Lutein/Zeaxan (Preservision Areds 2 Softgel) 1 Each Capsule, 1 CAP PO BID Warfarin Sodium (Warfarin Sodium) 5 Mg Tab, 5 MG PO 2XW THURSDAY AND THURSDAY AT NIGHT Warfarin Sodium (Warfarin Sodium) 5 Mg Tablet, 2.5 MG PO 5XW THURSDAY, THURSDAY, THURSDAY, THURSDAY AND THURSDAY AT NIGHT Scheduled PRN Acetaminophen (Acetaminophen) 500 Mg Tablet, 1,000 MG PO Q8H PRN for PAIN Acetaminophen with Codeine (Tylenol with Codeine #3 Tablet) 1 Each Tablet, 1 TAB PO Q12H PRN for PAIN Albuterol Sulfate (Ventolin Hfa) 18 Gm Hfa.aer.ad, 2 PUFF INH Q4H PRN for SHORTNESS OF BREATH Ammonium Lactate (Ammonium Lactate) 12 % Cre, 1 DOSE TOP BID PRN for ITCHING APPLY TO FEET Benzonatate (Tessalon Perle) 100 Mg Capsule, 100 MG PO TID PRN for COUGH Ipratropium/Albuterol Sulfate (Iprat-Albut 0.5-3(2.5) mg/3 ml) 3 Ml Ampul.neb, 3 ML INH Q6H PRN for SHORTNESS OF BREATH Allergies Coded Allergies: TAPE (Verified Allergy, Intermediate, reddness swelling, 04/26/19) tetanus immune globulin (Verified Allergy, Intermediate, SWELLING, 04/26/19) Contrast Media (Verified Adverse Reaction, Intermediate, kidney failure, 04/26/19) A-FIB/CHADSVASC A-FIB History Current/History of A-Fib/PAF?: Yes Current PO Anticoag Therapy: Yes Age/Risk Factor Scoring CHADSVASC: CHADSVASC Response (Comments) Value Age Risk Factor Age 65-74 years old 1 Gender Risk Factor Female 1 Hx of CHF Yes 1 Hx of HTN Yes 1 Hx of Stroke/TIA/or VTE No 0 Hx of Diabetes Yes 1 Hx of Vascular Disease No 0 Total 5 Treatment Treatment ordered: Warfarin MARIAELENA MCKINNEY MD Apr 26, 2019 23:25
[2019-04-27] MEDS ORDERED: DEXTROSE 50% 50 ML SYRINGE IV PRN (01:00)
[2019-04-27] MEDS ORDERED: LACTIC ACID 12% LOTION 225 GM BTL TOP PRN (01:00)
[2019-04-27] MEDS ORDERED: ALBUTEROL 90 MCG/ACT 8GM HFA INHALER INH PRN (01:00)
[2019-04-27] MEDS: GABAPENTIN 300 MG CAP PO SCH ×2 (02:18→20:45)
[2019-04-27 03:00] VITALS: BP 135/61
[2019-04-27] MEDS: WARFARIN SOD 5 MG TAB PO SCH ×2 (03:03→20:44)
[2019-04-27] MEDS: ACETAMINOPHEN 500 MG TAB PO PRN (03:05)
[2019-04-27] MEDS: HEPARIN SOD (PORCINE) 5000 UNITS/ML VIAL SC SCH ×2 (05:09→13:25)
[2019-04-27 05:29] LABS: HEMOGLOBIN 9.1 g/dl (12.0-15.5); MEAN CORPUSCULAR HEMOGLOBIN 30.7 pg (27.0-33.0); MEAN CORPUSCULAR HGB CONC 31.4 g/dl (32.0-36.5); PLATELET COUNT, AUTOMATED 157 10^3/uL (150-450); RED BLOOD COUNT 2.96 10^6/uL (4.00-5.40); WHITE BLOOD COUNT 8.3 10^3/uL (4.0-10.0)
[2019-04-27 05:50] LABS: CALCIUM LEVEL 8.4 MG/DL (8.8-10.2); CREATININE FOR GFR 2.41 MG/DL (0.55-1.30); GLOMERULAR FILTRATION RATE 21.3 (>45); MAGNESIUM LEVEL 2.2 MG/DL (1.8-2.4); POTASSIUM SERUM 3.5 MEQ/L (3.5-5.1)
[2019-04-27 06:25] LABS: INR 2.75
--- NOTE | 2019-04-27 07:20 | ECGEPIP ---
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
[2019-04-27 08:00] VITALS: BP 133/67
--- NOTE | 2019-04-27 08:00 | REP ---
Portable chest x-ray: Single view. History: Dyspnea and cough. Comparison chest x-ray: February 25, 2019. Findings: A multi lead pacemaker is seen in the heart via the left side as before. Heart is mildly enlarged unchanged. There is no evidence of pleural effusion or pulmonary edema. Slight vascular cephalization is again noted. Impression: Cardiomegaly with pacemaker. Slight cephalization. No evidence of pulmonary edema or pleural effusion. Electronically Signed by Lorenzo Moody MD 04/27/2019 07:51 A
[2019-04-27] MEDS: HumaLOG INSULIN (NovoLOG) PER UNIT SC SCH ×4 (08:51→17:16)
[2019-04-27] MEDS: FUROSEMIDE 100 MG/10 ML VIAL (J1940) IV SCH ×2 (08:52→20:39)
[2019-04-27] MEDS: FLUTICASONE PROP 0.05% NASAL SPRAY 16 GM (FLONASE) SCH (08:52)
[2019-04-27] MEDS: DIGOXIN INJ 0.5 MG/2 ML AMP (J1160) IV SCH (08:53)
[2019-04-27] MEDS: MONTELUKAST 10 MG TAB PO SCH (08:53)
[2019-04-27] MEDS: CETIRIZINE (ZyrTEC) 10 MG TAB PO SCH (08:54)
[2019-04-27] MEDS: CARVedilol 12.5 MG TAB PO SCH ×2 (08:54→20:45)
[2019-04-27] MEDS: ATORVASTATIN 20 MG TAB PO SCH (08:54)
[2019-04-27] MEDS: LEVEMIR (INSULIN DETEMIR) 1 UNITS/0.01ML SC SCH (08:54)
[2019-04-27] MEDS: DOCUSATE SODIUM 100 MG CAP PO SCH ×2 (08:54→20:44)
[2019-04-27] MEDS ORDERED: TORSEMIDE 20 MG TAB PO SCH ×2 (09:00→17:00)
[2019-04-27] MEDS: IPRATROPIUM 0.5MG/ALBUTEROL 2.5MG INH SOL UD 3ML (DUONEB)(J7620) INH PRN (10:38)
--- NOTE | 2019-04-27 11:57 | IPNPDOC ---
Subjective Date Seen The patient was seen on 04/27/19. Subjective Chief Complaint/HPI less dyspneic than on admission but still dyspneic with any activity Constitutional: Denies: Chills ENT: Denies: Head Aches Skin: Denies: Rash Pulmonary: Reports: Dyspnea; Denies: Cough Cardiovascular: Denies: Chest Pain, Palpitations Gastrointestinal: Denies: Nausea, Abdominal Pain Musculoskeletal: Denies: Spasms Neurological: Denies: Weakness Psych: Reports: Mood Normal Objective Physical Examination General Exam: Positive: Alert Eye Exam: Positive: PERRLA Neck Exam: Positive: Supple Chest Exam: Positive: Clear to auscultation; Negative: Rales, Rhonchi Heart Exam: Positive: Rate Normal, Murmurs (2/6 right 2nd ICS and LSB) Abdomen Exam: Positive: Normal bowel sounds; Negative: Tenderness Extremity Exam: Positive: Edema (2+ LE edema bilaterally) Skin Exam: Positive: Nl turgor and temperature Psych Exam: Positive: Mental status NL Assessment /Plan Problems (1) Acute CHF Status: Acute Response to Treatment: Improving Problem Text: acute on chronic CHF. reports 20 lb weight gain over about 3 weeks. says she reported observed weight gain to cardiology provider that she had seen after her last discharge but no change in treatment was recommended. patient seems to have no idea of how this could have happened. (2) CKD (chronic kidney disease), stage IV Status: Chronic Response to Treatment: Stable Problem Text: may complicate and limit ability to diurese, follow closely. (3) Asthma Status: Chronic Response to Treatment: Stable Problem Text: prednisone has been reduced to 2.5mg every other day. no increase for now. (4) Dilated cardiomyopathy Status: Chronic Response to Treatment: Worse Problem Text: acute exacerbation resulting in this admission. (5) Diabetes mellitus with stage 4 chronic kidney disease GFR 15-29 Status: Chronic Response to Treatment: Stable Problem Text: continue levemir 40 with SS coverage Plan/VTE VTE Prophylaxis Ordered?: Yes Plan Anticipated Discharge: Home VS, I&O, 24H, Fishbone Vital Signs/I&O Vital Signs Date Time Temp Pulse Resp B/P (MAP) Pulse Ox O2 Delivery O2 Flow Rate FiO2 04/27/19 08:54 71 133/67 04/27/19 08:00 97.5 20 95 04/27/19 01:54 Room Air I&O- Last 24 Hours up to 6 AM 04/27/19 06:00 Intake Total 120 ml Output Total 900 ml Balance -780 ml Laboratory Data 24H LABS Laboratory Tests 2 04/26/19 20:12: Immature Granulocyte % (Auto) 2.4, White Blood Count 8.1, Red Blood Count 2.92L, Hemoglobin 9.1L, Hematocrit 28.9L, Mean Corpuscular Volume 99.0H, Mean Corpuscular Hemoglobin 31.2, Mean Corpuscular Hemoglobin Concent 31.5L, Red Cell Distribution Width 17.8H, Platelet Count 157, Neutrophils (%) (Auto) 72.8H, Lymphocytes (%) (Auto) 11.8L, Monocytes (%) (Auto) 10.0H, Eosinophils (%) (Auto) 2.5, Basophils (%) (Auto) 0.5, Neutrophils # (Auto) 5.9, Lymphocytes # (Auto) 1.0L, Monocytes # (Auto) 0.8, Eosinophils # (Auto) 0.2, Basophils # (Auto) 0.0, Nucleated Red Blood Cells % (auto) 0.0, Anion Gap 10, Glomerular Filtration Rate 20.9L, Calcium Level 8.0L, Aspartate Amino Transf (AST/SGOT) 48H, Alanine Aminotransferase (ALT/SGPT) 33, Alkaline Phosphatase 280H, Total Bilirubin 0.3, Direct Bilirubin 0.1, Total Creatine Kinase 156, Creatine Kinase MB 2.3, Creatine Kinase MB Relative Index 1.47, Troponin I 0.04, CP-Won-Z-Type Natriuretic Peptide 1117H, Total Protein 6.4, Albumin 2.7L, Albumin/Globulin Ratio 0.73L 04/26/19 22:02: Prothrombin Time 26.4H, Prothromb Time International Ratio 2.45 04/27/19 05:10: Nucleated Red Blood Cells % (auto) 0.0, Anion Gap 12, Glomerular Filtration Rate 21.3L, Calcium Level 8.4L, Prothrombin Time 29.0H, Prothromb Time International Ratio 2.75, Blood Urea Nitrogen 51H, Creatinine 2.41H, Sodium Level 148H, Potassium Level 3.5, Chloride Level 113H, Carbon Dioxide Level 23, Magnesium Level 2.2 04/27/19 11:24: Bedside Glucose (Misc Panel) 173H CBC/BMP Laboratory Tests 04/26/19 20:12 Red Blood Count 2.92 L, Mean Corpuscular Volume 99.0 H, Mean Corpuscular Hemoglobin 31.2, Mean Corpuscular Hemoglobin Concent 31.5 L, Red Cell Distribution Width 17.8 H, Neutrophils (%) (Auto) 72.8 H, Lymphocytes (%) (Auto) 11.8 L, Monocytes (%) (Auto) 10.0 H, Eosinophils (%) (Auto) 2.5, Basophils (%) (Auto) 0.5, Neutrophils # (Auto) 5.9, Lymphocytes # (Auto) 1.0 L, Monocytes # (Auto) 0.8, Eosinophils # (Auto) 0.2, Basophils # (Auto) 0.0 04/27/19 05:10 Red Blood Count 2.96 L, Mean Corpuscular Volume 98.0 H, Mean Corpuscular Hemoglobin 30.7, Mean Corpuscular Hemoglobin Concent 31.4 L, Red Cell Distribution Width 17.9 H, Calcium Level 8.4 L Jon Hahn MD Apr 27, 2019 11:57
[2019-04-27 12:00] VITALS: BP 144/67
[2019-04-27 16:00] VITALS: BP 149/70
[2019-04-27 20:00] VITALS: BP 121/58
[2019-04-27 23:59] VITALS: BP 158/65
[2019-04-28 04:00] VITALS: BP 132/62
[2019-04-28 05:48] LABS: INR 2.34; PROTHROMBIN TIME 25.5 SECONDS (11.8-14.0)
[2019-04-28 07:59] LABS: CALCIUM LEVEL 8.1 MG/DL (8.8-10.2); CREATININE FOR GFR 2.46 MG/DL (0.55-1.30); DIGOXIN LEVEL 1.3 NG/ML (0.5-2.0); GLOMERULAR FILTRATION RATE 20.8 (>45); MAGNESIUM LEVEL 1.8 MG/DL (1.8-2.4); POTASSIUM SERUM 3.4 MEQ/L (3.5-5.1)
[2019-04-28 08:00] VITALS: BP 131/59
[2019-04-28 08:20] LABS: HEMATOCRIT 28.6 % (36.0-47.0); MEAN CORPUSCULAR HEMOGLOBIN 31.1 pg (27.0-33.0); MEAN CORPUSCULAR HGB CONC 31.5 g/dl (32.0-36.5); PLATELET COUNT, AUTOMATED 180 10^3/uL (150-450); RED BLOOD COUNT 2.89 10^6/uL (4.00-5.40); WHITE BLOOD COUNT 8.6 10^3/uL (4.0-10.0)
[2019-04-28] MEDS: FUROSEMIDE 100 MG/10 ML VIAL (J1940) IV SCH ×3 (08:55→20:22)
[2019-04-28] MEDS: predniSONE 2.5 MG TAB PO SCH (08:56)
[2019-04-28] MEDS: DOCUSATE SODIUM 100 MG CAP PO SCH ×2 (08:56→20:34)
[2019-04-28] MEDS: LEVEMIR (INSULIN DETEMIR) 1 UNITS/0.01ML SC SCH (08:56)
[2019-04-28] MEDS: MAGNESIUM OXIDE 400 MG TAB (MAG-OX) PO SCH (08:57)
[2019-04-28] MEDS: CARVedilol 12.5 MG TAB PO SCH ×2 (08:57→20:23)
[2019-04-28] MEDS: MONTELUKAST 10 MG TAB PO SCH (08:57)
[2019-04-28] MEDS: ATORVASTATIN 20 MG TAB PO SCH (08:57)
[2019-04-28] MEDS: CETIRIZINE (ZyrTEC) 10 MG TAB PO SCH (08:57)
[2019-04-28] MEDS: FERROUS GLUCONATE 324 MG TAB PO SCH (08:57)
[2019-04-28] MEDS: FLUTICASONE PROP 0.05% NASAL SPRAY 16 GM (FLONASE) SCH (08:58)
[2019-04-28] MEDS: HumaLOG INSULIN (NovoLOG) PER UNIT SC SCH ×4 (09:12→17:02)
[2019-04-28] MEDS: IPRATROPIUM 0.5MG/ALBUTEROL 2.5MG INH SOL UD 3ML (DUONEB)(J7620) INH PRN (09:57)
--- NOTE | 2019-04-28 11:01 | IPNPDOC ---
Subjective Date Seen The patient was seen on 04/28/19. Subjective Chief Complaint/HPI Pt this morning states that she doesn't think her breathing is as good as it was yesterday. She also states that she had a BM this morning followed by 2 loose stools, stomach feels upset. General: Reports: Fatigue Constitutional: Denies: Chills, Fever Pulmonary: Reports: Dyspnea, Cough Cardiovascular: Denies: Chest Pain, Palpitations Gastrointestinal: Reports: Diarrhea; Denies: Nausea, Vomiting, Abdominal Pain Neurological: Reports: Weakness Psych: Reports: Mood Normal Objective Physical Examination General Exam: Positive: Alert, No Acute Distress Eye Exam: Positive: PERRLA Neck Exam: Positive: Supple Chest Exam: Positive: Rales (Bibasilar rales), Diminished; Negative: Clear to auscultation, Normal air movement, Rhonchi Heart Exam: Positive: Rate Normal, Murmurs (2/6 right 2nd ICS and LSB) Abdomen Exam: Positive: Normal bowel sounds; Negative: Tenderness Extremity Exam: Positive: Edema (2+ LE edema bilaterally) Skin Exam: Positive: Nl turgor and temperature Neuro Exam: Positive: Normal Speech Psych Exam: Positive: Mental status NL Assessment /Plan Problems (1) Acute CHF Status: Acute Response to Treatment: Improving Problem Text: 04/28 Enc ANGELA diet, will increase Lasix from 60 mg BID to TID, Net Neg 1600 yesterday which is great, but her breathing is without improvement, monitor renal function. torsemide stopped while on IV lasix 04/27 acute on chronic CHF. reports 20 lb weight gain over about 3 weeks. says she reported observed weight gain to cardiology provider that she had seen after her last discharge but no change in treatment was recommended. patient seems to have no idea of how this could have happened. (2) CKD (chronic kidney disease), stage IV Status: Chronic Response to Treatment: Stable Problem Text: 04/28 stable 04/27 may complicate and limit ability to diurese, follow closely. (3) Asthma Status: Chronic Response to Treatment: Stable Problem Text: prednisone has been reduced to 2.5mg every other day. no increase for now. (4) Dilated cardiomyopathy Status: Chronic Response to Treatment: Worse Problem Text: acute exacerbation resulting in this admission. (5) Diabetes mellitus with stage 4 chronic kidney disease GFR 15-29 Status: Chronic Response to Treatment: Stable Problem Text: continue levemir 40 with SS coverage Plan/VTE VTE Prophylaxis Ordered?: Yes Plan Anticipated Discharge: Home VS, I&O, 24H, Fishbone Vital Signs/I&O Vital Signs Date Time Temp Pulse Resp B/P (MAP) Pulse Ox O2 Delivery O2 Flow Rate FiO2 04/28/19 08:57 70 132/62 04/28/19 08:00 97.6 19 98 04/27/19 01:54 Room Air I&O- Last 24 Hours up to 6 AM 04/28/19 06:00 Intake Total 1200 ml Output Total 3425 ml Balance -2225 ml Laboratory Data 24H LABS Laboratory Tests 2 04/27/19 11:24: Bedside Glucose (Misc Panel) 173H 04/27/19 17:10: Bedside Glucose (Misc Panel) 140H 04/27/19 21:09: Bedside Glucose (Misc Panel) 91 04/28/19 05:19: Nucleated Red Blood Cells % (auto) 0.0, Prothrombin Time 25.5H, Prothromb Time International Ratio 2.34, Anion Gap 11, Glomerular Filtration Rate 20.8L, Blood Urea Nitrogen 55H, Creatinine 2.46H, Sodium Level 145, Potassium Level 3.4L, Chloride Level 109H, Carbon Dioxide Level 25, Calcium Level 8.1L, Magnesium Level 1.8, Digoxin Level 1.3 04/28/19 07:24: Bedside Glucose (Misc Panel) 143H CBC/BMP Laboratory Tests 04/28/19 05:19 Red Blood Count 2.89 L, Mean Corpuscular Volume 99.0 H, Mean Corpuscular Hemoglobin 31.1, Mean Corpuscular Hemoglobin Concent 31.5 L, Red Cell Distribution Width 17.7 H, Calcium Level 8.1 L AZRA LOPEZ PA-C Apr 28, 2019 11:00 Jon Hahn MD Apr 28, 2019 12:20
[2019-04-28 12:00] VITALS: BP 130/54
[2019-04-28] MEDS ORDERED: POTASSIUM CHLORIDE 10 MEQ SR TABLET PO ONE (12:30)
[2019-04-28 16:00] VITALS: BP 137/63
[2019-04-28 18:53] VITALS: BP 142/60
[2019-04-28 20:00] VITALS: BP 142/60
[2019-04-28] MEDS: WARFARIN SOD 5 MG TAB PO SCH (20:22)
[2019-04-28] MEDS: GABAPENTIN 300 MG CAP PO SCH (20:23)
[2019-04-28 22:50] LABS: CALCIUM LEVEL 9.1 MG/DL (8.8-10.2); CREATININE FOR GFR 2.74 MG/DL (0.55-1.30); GLOMERULAR FILTRATION RATE 18.3 (>45); MAGNESIUM LEVEL 1.9 MG/DL (1.8-2.4); POTASSIUM SERUM 3.8 MEQ/L (3.5-5.1)
[2019-04-29] VITALS: BP 122/58
[2019-04-29 04:00] VITALS: BP 141/61
[2019-04-29 05:56] LABS: HEMATOCRIT 28.3 % (36.0-47.0); HEMOGLOBIN 9.3 g/dl (12.0-15.5); MEAN CORPUSCULAR HEMOGLOBIN 30.8 pg (27.0-33.0); MEAN CORPUSCULAR HGB CONC 32.9 g/dl (32.0-36.5); MEAN CORPUSCULAR VOLUME 93.7 fl (80.0-96.0); PLATELET COUNT, AUTOMATED 185 10^3/uL (150-450); RED BLOOD COUNT 3.02 10^6/uL (4.00-5.40); WHITE BLOOD COUNT 9.3 10^3/uL (4.0-10.0)
[2019-04-29 06:07] LABS: INR 2.02; PROTHROMBIN TIME 22.6 SECONDS (11.8-14.0)
[2019-04-29 06:15] LABS: CALCIUM LEVEL 8.9 MG/DL (8.8-10.2); CREATININE FOR GFR 2.65 MG/DL (0.55-1.30); GLOMERULAR FILTRATION RATE 19.1 (>45); POTASSIUM SERUM 3.6 MEQ/L (3.5-5.1)
[2019-04-29] MEDS: DIGOXIN INJ 0.5 MG/2 ML AMP (J1160) IV SCH (07:30)
[2019-04-29] MEDS: DOCUSATE SODIUM 100 MG CAP PO SCH ×2 (07:30→19:47)
[2019-04-29] MEDS: MONTELUKAST 10 MG TAB PO SCH (07:35)
[2019-04-29] MEDS: CARVedilol 12.5 MG TAB PO SCH ×2 (07:35→19:45)
[2019-04-29] MEDS: FUROSEMIDE 100 MG/10 ML VIAL (J1940) IV SCH ×3 (07:36→19:40)
[2019-04-29] MEDS: CETIRIZINE (ZyrTEC) 10 MG TAB PO SCH (07:36)
[2019-04-29] MEDS: ATORVASTATIN 20 MG TAB PO SCH (07:36)
[2019-04-29] MEDS: LEVEMIR (INSULIN DETEMIR) 1 UNITS/0.01ML SC SCH (07:37)
[2019-04-29] MEDS: HumaLOG INSULIN (NovoLOG) PER UNIT SC SCH ×4 (07:37→17:02)
[2019-04-29 08:00] VITALS: BP 122/57
[2019-04-29] MEDS ORDERED: TORSEMIDE 20 MG TAB PO SCH (09:00)
[2019-04-29] MEDS: FLUTICASONE PROP 0.05% NASAL SPRAY 16 GM (FLONASE) SCH (09:00)
--- NOTE | 2019-04-29 11:23 | IPNPDOC ---
Subjective Date Seen The patient was seen on 04/29/19. Subjective Chief Complaint/HPI Patient sitting in chair eating breakfast as I entered the room Constitutional: Denies: Chills, Fever Pulmonary: Reports: Dyspnea (improved); Denies: Cough, Pleuritic Chest Pain Cardiovascular: Denies: Chest Pain, Palpitations, Orthopnea Gastrointestinal: Denies: Nausea, Vomiting, Abdominal Pain Psych: Reports: Mood Normal Objective Physical Examination General Exam: Positive: Alert, Cooperative, No Acute Distress Eye Exam: Positive: PERRLA Neck Exam: Positive: Supple Chest Exam: Negative: Normal air movement, Rales, Rhonchi, Wheezing Heart Exam: Positive: Rate Normal, Murmurs (2/6 right 2nd ICS and LSB) Abdomen Exam: Positive: Normal bowel sounds; Negative: Tenderness Extremity Exam: Positive: Edema (1+ LE edema bilaterally) Skin Exam: Positive: Nl turgor and temperature Neuro Exam: Positive: Normal Speech Psych Exam: Positive: Mental status NL Assessment /Plan Problems (1) Acute CHF Status: Acute Response to Treatment: Improving Problem Text: 04/29/19: Patient reports breathing to be much improved from yesterday. There is also some improvement in her edema. D/C IV Lasix. Start Torsemide 60m po qday and continue to monitor 04/28 Enc ANGELA diet, will increase Lasix from 60 mg BID to TID, Net Neg 1600 yesterday which is great, but her breathing is without improvement, monitor renal function. torsemide stopped while on IV lasix 04/27 acute on chronic CHF. reports 20 lb weight gain over about 3 weeks. says she reported observed weight gain to cardiology provider that she had seen after her last discharge but no change in treatment was recommended. patient seems to have no idea of how this could have happened. (2) CKD (chronic kidney disease), stage IV Status: Chronic Response to Treatment: Stable Problem Text: 04/29/19: Renal function remains fairly stable BUN/Cre 60/2.65, GFR 19. Baseline GFR ~25, Cre ~ 2.0-2.5 04/28 stable 04/27 may complicate and limit ability to diurese, follow closely. (3) Asthma Status: Chronic Response to Treatment: Stable Problem Text: prednisone has been reduced to 2.5mg every other day. no increase for now. (4) Dilated cardiomyopathy Status: Chronic Response to Treatment: Worse Problem Text: acute exacerbation resulting in this admission. (5) Diabetes mellitus with stage 4 chronic kidney disease GFR 15-29 Status: Chronic Response to Treatment: Stable Problem Text: continue levemir 40 with SS coverage (6) Atrial fibrillation Status: Chronic Response to Treatment: Stable Problem Text: 04/29/19: Paroxysmal A-fib. INR 2.02. Remains on Coumadin (7) Morbid obesity Status: Chronic Response to Treatment: Stable Problem Text: contributes to DM, PAH Plan/VTE VTE Prophylaxis Ordered?: Yes (Coumadin ) Plan Anticipated Discharge: Home VS, I&O, 24H, Fishbone Vital Signs/I&O Vital Signs Date Time Temp Pulse Resp B/P (MAP) Pulse Ox O2 Delivery O2 Flow Rate FiO2 04/29/19 07:35 69 122/57 04/29/19 04:00 98.1 22 94 04/27/19 01:54 Room Air I&O- Last 24 Hours up to 6 AM 04/29/19 06:00 Intake Total 1620 ml Output Total 2700 ml Balance -1080 ml Laboratory Data 24H LABS Laboratory Tests 2 04/28/19 11:28: Bedside Glucose (Misc Panel) 190H 04/28/19 16:49: Bedside Glucose (Misc Panel) 245H 04/28/19 22:20: Anion Gap 12, Glomerular Filtration Rate 18.3L, Blood Urea Nitrogen 60H, Cre atinine 2.74H, Sodium Level 142, Potassium Level 3.8, Chloride Level 107, Carbon Dioxide Level 23, Calcium Level 9.1, Magnesium Level 1.9 04/29/19 05:39: Anion Gap 12, Glomerular Filtration Rate 19.1L, Blood Urea Nitrogen 60H, Creatinine 2.65H, Sodium Level 143, Potassium Level 3.6, Chloride Level 109H, Carbon Dioxide Level 22, Calcium Level 8.9, Nucleated Red Blood Cells % (auto) 0.0, Prothrombin Time 22.6H, Prothromb Time International Ratio 2.02 CBC/BMP Laboratory Tests 04/28/19 22:20 Calcium Level 9.1 04/29/19 05:39 Calcium Level 8.9, Red Blood Count 3.02 L, Mean Corpuscular Volume 93.7, Mean Corpuscular Hemoglobin 30.8, Mean Corpuscular Hemoglobin Concent 32.9, Red Cell Distribution Width 17.3 H Attending Note Attending Note this patient should have been admitted as inpatient the entire time. status changed to inpatient DAXA ARCOS Apr 29, 2019 08:15 Jon Hahn MD Apr 29, 2019 11:21
[2019-04-29] MEDS: IPRATROPIUM 0.5MG/ALBUTEROL 2.5MG INH SOL UD 3ML (DUONEB)(J7620) INH PRN (11:32)
[2019-04-29 12:00] VITALS: BP 135/62
[2019-04-29] MEDS: ACETAMINOPHEN 500 MG TAB PO PRN (12:57)
[2019-04-29 16:00] VITALS: BP 131/60
[2019-04-29 19:24] VITALS: BP 130/56
[2019-04-29] MEDS: WARFARIN SOD 5 MG TAB PO SCH (19:46)
[2019-04-29] MEDS: GABAPENTIN 300 MG CAP PO SCH (19:46)
[2019-04-30] VITALS: BP 139/6
[2019-04-30 04:00] VITALS: BP 128/58
[2019-04-30 05:59] LABS: HEMATOCRIT 28.2 % (36.0-47.0); HEMOGLOBIN 9.2 g/dl (12.0-15.5); MEAN CORPUSCULAR HEMOGLOBIN 31.2 pg (27.0-33.0); MEAN CORPUSCULAR HGB CONC 32.6 g/dl (32.0-36.5); MEAN CORPUSCULAR VOLUME 95.6 fl (80.0-96.0); PLATELET COUNT, AUTOMATED 165 10^3/uL (150-450); RED BLOOD COUNT 2.95 10^6/uL (4.00-5.40); WHITE BLOOD COUNT 9.5 10^3/uL (4.0-10.0)
[2019-04-30 06:10] LABS: INR 2.06
[2019-04-30 06:22] LABS: CALCIUM LEVEL 8.8 MG/DL (8.8-10.2); CREATININE FOR GFR 2.55 MG/DL (0.55-1.30); GLOMERULAR FILTRATION RATE 19.9 (>45); POTASSIUM SERUM 3.4 MEQ/L (3.5-5.1)
[2019-04-30] MEDS: ACETAMINOPHEN 500 MG TAB PO PRN (07:26)
[2019-04-30] MEDS: HumaLOG INSULIN (NovoLOG) PER UNIT SC SCH ×4 (07:26→16:43)
[2019-04-30 08:00] VITALS: BP 145/65
[2019-04-30] MEDS: LEVEMIR (INSULIN DETEMIR) 1 UNITS/0.01ML SC SCH (09:05)
[2019-04-30] MEDS: MAGNESIUM OXIDE 400 MG TAB (MAG-OX) PO SCH (09:05)
[2019-04-30] MEDS: CARVedilol 12.5 MG TAB PO SCH ×2 (09:05→20:48)
[2019-04-30] MEDS: FERROUS GLUCONATE 324 MG TAB PO SCH (09:05)
[2019-04-30] MEDS: CETIRIZINE (ZyrTEC) 10 MG TAB PO SCH (09:05)
[2019-04-30] MEDS: ATORVASTATIN 20 MG TAB PO SCH (09:05)
[2019-04-30] MEDS: DOCUSATE SODIUM 100 MG CAP PO SCH ×2 (09:05→20:48)
[2019-04-30] MEDS: MONTELUKAST 10 MG TAB PO SCH (09:06)
[2019-04-30] MEDS: predniSONE 2.5 MG TAB PO SCH (09:06)
[2019-04-30] MEDS: FUROSEMIDE 100 MG/10 ML VIAL (J1940) IV SCH (10:03)
[2019-04-30] MEDS: FLUTICASONE PROP 0.05% NASAL SPRAY 16 GM (FLONASE) SCH (10:03)
[2019-04-30] MEDS ORDERED: POTASSIUM CHLORIDE 10 MEQ SR TABLET PO ONE (11:00)
[2019-04-30 12:00] VITALS: BP 149/70
--- NOTE | 2019-04-30 13:27 | IPN ---
DATE: 04/30/2019 Gerson is seen in the progressive care unit (PCU). She says she feels better. She is not short of breath at rest anymore, but she still gets short of breath with only minimal exertion. She does not feel she is ready for discharge. PHYSICAL EXAMINATION: Vital signs stable. 145/65. Lungs decreased breath sounds, but clear. Heart regular rhythm. Abdomen obese, nontender, no masses. 1+ peripheral edema which is much improved from baseline. LABS: Potassium 3.4, creatinine down to 2.5. IMPRESSION: Congestive heart failure. PLAN: I am going to put her on her home torsemide, but increase the dose to 60 mg twice a day starting this evening. If she is stable, hope to discharge her tomorrow. Supplemental potassium has also been given.
[2019-04-30 16:00] VITALS: BP 149/65
[2019-04-30] MEDS: TORSEMIDE 20 MG TAB PO SCH (16:43)
[2019-04-30 20:00] VITALS: BP 134/63
[2019-04-30] MEDS: GABAPENTIN 300 MG CAP PO SCH (20:49)
[2019-04-30] MEDS: WARFARIN SOD 5 MG TAB PO SCH (20:49)
[2019-04-30] MEDS ORDERED: HumaLOG INSULIN (NovoLOG) PER UNIT SC ONE (21:45)
[2019-05-01] VITALS: BP 141/66
[2019-05-01 04:00] VITALS: BP 145/67
[2019-05-01] MEDS: ACETAMINOPHEN 500 MG TAB PO PRN ×2 (04:15→14:09)
[2019-05-01 06:17] LABS: HEMATOCRIT 28.9 % (36.0-47.0); HEMOGLOBIN 9.3 g/dl (12.0-15.5); MEAN CORPUSCULAR HEMOGLOBIN 30.7 pg (27.0-33.0); MEAN CORPUSCULAR HGB CONC 32.2 g/dl (32.0-36.5); MEAN CORPUSCULAR VOLUME 95.4 fl (80.0-96.0); PLATELET COUNT, AUTOMATED 178 10^3/uL (150-450); RED BLOOD COUNT 3.03 10^6/uL (4.00-5.40)
[2019-05-01 06:28] LABS: INR 2.09; PROTHROMBIN TIME 23.3 SECONDS (11.8-14.0)
[2019-05-01 06:36] LABS: CALCIUM LEVEL 8.8 MG/DL (8.8-10.2); CREATININE FOR GFR 2.71 MG/DL (0.55-1.30); GLOMERULAR FILTRATION RATE 18.6 (>45); POTASSIUM SERUM 3.7 MEQ/L (3.5-5.1)
[2019-05-01 08:00] VITALS: BP 127/62
[2019-05-01] MEDS: LEVEMIR (INSULIN DETEMIR) 1 UNITS/0.01ML SC SCH (08:32)
[2019-05-01] MEDS: HumaLOG INSULIN (NovoLOG) PER UNIT SC SCH ×5 (08:33→21:39)
[2019-05-01] MEDS: DOCUSATE SODIUM 100 MG CAP PO SCH ×2 (08:34→19:56)
[2019-05-01] MEDS: CARVedilol 12.5 MG TAB PO SCH ×2 (08:34→19:55)
[2019-05-01] MEDS: CETIRIZINE (ZyrTEC) 10 MG TAB PO SCH (08:34)
[2019-05-01] MEDS: MONTELUKAST 10 MG TAB PO SCH (08:34)
[2019-05-01] MEDS: ATORVASTATIN 20 MG TAB PO SCH (08:34)
[2019-05-01] MEDS: FLUTICASONE PROP 0.05% NASAL SPRAY 16 GM (FLONASE) SCH (08:35)
[2019-05-01] MEDS: TORSEMIDE 20 MG TAB PO SCH ×2 (08:35→17:12)
[2019-05-01 12:00] VITALS: BP 165/72
--- NOTE | 2019-05-01 15:01 | IPN ---
DATE: 05/01/2019 Gerson is seen in the progressive care unit (PCU). She really has not been ambulating very much. She still feels shortness of breath with exertion. She has continued to diurese satisfactorily. Had a 1200 mL net diuresis yesterday. Has diuresed about 7 liters to date. PHYSICAL EXAMINATION: She is alert, conversant, in no distress. No jugular venous distention (JVD). Lungs: Decreased breath sounds. Heart: Regular rhythm with 1/6 systolic ejection murmur. Abdomen: Soft, nontender. Trace 1+ peripheral edema. LABS: CBC stable. Electrolytes unremarkable. Potassium is up to 3.7. INR is 2.0. Blood sugars have between 200-400. IMPRESSION: 1. Congestive heart failure with progressive diuresis. Today plan is to ambulate in the hallway as much as possible. I asked the nurses to check her oximetry with exertion to see if she requires home oxygen with ambulation. Oxygen saturation is 95% on room air at rest, but has not been tested with ambulation. I have ordered a home safety evaluation for tomorrow. 2. Diabetes. Increased detemir insulin dose. 3. Chronic kidney disease. Renal function is stable with diuresis. 4. Atrial fibrillation. International normalized ratio (INR) is therapeutic. Rate is well controlled. 5. Morbid obesity. This is contributing to her multiple medical problems and ultimately will limit her prognosis.
[2019-05-01 16:00] VITALS: BP 133/59
[2019-05-01] MEDS: GABAPENTIN 300 MG CAP PO SCH (19:56)
[2019-05-01] MEDS: WARFARIN SOD 5 MG TAB PO SCH (19:56)
[2019-05-01 20:00] VITALS: BP 143/66
[2019-05-02] VITALS: BP 152/67
[2019-05-02 04:00] VITALS: BP 121/57
[2019-05-02 05:33] LABS: HEMATOCRIT 26.7 % (36.0-47.0); HEMOGLOBIN 8.7 g/dl (12.0-15.5); MEAN CORPUSCULAR HEMOGLOBIN 31.1 pg (27.0-33.0); MEAN CORPUSCULAR HGB CONC 32.6 g/dl (32.0-36.5); MEAN CORPUSCULAR VOLUME 95.4 fl (80.0-96.0); PLATELET COUNT, AUTOMATED 169 10^3/uL (150-450); WHITE BLOOD COUNT 8.6 10^3/uL (4.0-10.0)
[2019-05-02 05:45] LABS: INR 2.14; PROTHROMBIN TIME 23.7 SECONDS (11.8-14.0)
[2019-05-02 05:54] LABS: CALCIUM LEVEL 8.6 MG/DL (8.8-10.2); CREATININE FOR GFR 2.9 MG/DL (0.55-1.30); GLOMERULAR FILTRATION RATE 17.2 (>45); POTASSIUM SERUM 3.6 MEQ/L (3.5-5.1)
--- NOTE | 2019-05-02 07:26 | IPNPDOC ---
Subjective Date Seen The patient was seen on 05/02/19. Subjective Chief Complaint/HPI CHF Events since last encounter patient with elevated Cr of 2.9 today. Was placed on higher dosing of Torsemide: 60 mg po bid. takes 20 mg po bid at home. Glucose has been high, has brought in cake and patient has not been following a carb consistent diet. Also some questioning of compliance with fluid restriction. Constitutional: Denies: Chills, Fever, Night Sweats Pulmonary: Reports: Dyspnea Cardiovascular: Denies: Chest Pain, Palpitations, Orthopnea, Paroxysmal Noc. Dyspnea, Lt Headedness Gastrointestinal: Denies: Nausea, Vomiting, Abdominal Pain, Diarrhea, Constipation Objective Physical Examination General Exam: Positive: Alert, Cooperative, No Acute Distress Eye Exam: Positive: PERRLA Neck Exam: Positive: Supple Chest Exam: Negative: Normal air movement, Rales, Rhonchi, Wheezing Heart Exam: Positive: Rate Normal, Murmurs (2/6 right 2nd ICS and LSB) Abdomen Exam: Positive: Normal bowel sounds; Negative: Tenderness Extremity Exam: Positive: Edema (1+ LE edema bilaterally) Skin Exam: Positive: Nl turgor and temperature Neuro Exam: Positive: Normal Speech Psych Exam: Positive: Mental status NL Assessment /Plan Problems (1) Physical deconditioning Status: Chronic Problem Text: 04/29 PT not safe to dc home (2) Acute CHF Status: Acute Response to Treatment: Improving Problem Text: 05/02/19: Patient continues to show improvement. will back off on Torsemide dosing to 20 mg po bid and track I/O, weights and Cr. continue 2 gram sodium diet and 2l fluid restriction. 04/29/19: Patient reports breathing to be much improved from yesterday. There is also some improvement in her edema. D/C IV Lasix. Start Torsemide 60m po qday and continue to monitor 04/28 Enc ANGELA diet, will increase Lasix from 60 mg BID to TID, Net Neg 1600 yesterday which is great, but her breathing is without improvement, monitor renal function. torsemide stopped while on IV lasix 04/27 acute on chronic CHF. reports 20 lb weight gain over about 3 weeks. says she reported observed weight gain to cardiology provider that she had seen after her last discharge but no change in treatment was recommended. patient seems to have no idea of how this could have happened. (3) CKD (chronic kidney disease), stage IV Status: Chronic Response to Treatment: Stable Problem Text: 05/02/19: Cr elevated at 2.9 today. decrease dosing of Torsemide 04/29/19: Renal function remains fairly stable BUN/Cre 60/2.65, GFR 19. Baseline GFR ~25, Cre ~ 2.0-2.5 04/28 stable 04/27 may complicate and limit ability to diurese, follow closely. (4) Asthma Status: Chronic Response to Treatment: Stable Problem Text: prednisone has been reduced to 2.5mg every other day. no increase for now. (5) Dilated cardiomyopathy Status: Chronic Response to Treatment: Worse Problem Text: acute exacerbation resulting in this admission. (6) Diabetes mellitus with stage 4 chronic kidney disease GFR 15-29 Status: Chronic Response to Treatment: Stable Problem Text: continue levemir 40 with SS coverage (7) Atrial fibrillation Status: Chronic Response to Treatment: Stable Problem Text: 04/29/19: Paroxysmal A-fib. INR 2.02. Remains on Coumadin (8) Morbid obesity Status: Chronic Response to Treatment: Stable Problem Text: contributes to DM, PAH (9) Open wound of right hip Status: Chronic Problem Text: due for wound check with Dr. Hickman tomorrow. Nursing to contact his office and see if he can provide a telemed consult due to patient's hospitalization. Plan/VTE VTE Prophylaxis Ordered?: Yes (Coumadin ) Plan Anticipated Discharge: Home VS, I&O, 24H, Fishbone Vital Signs/I&O Vital Signs Date Time Temp Pulse Resp B/P (MAP) Pulse Ox O2 Delivery O2 Flow Rate FiO2 05/02/19 04:00 98.5 70 16 121/57 (78) 95 04/27/19 01:54 Room Air I&O- Last 24 Hours up to 6 AM 05/02/19 06:00 Intake Total 1940 ml Output Total 2450 ml Balance -510 ml Laboratory Data 24H LABS Laboratory Tests 2 05/01/19 12:01: Bedside Glucose (Misc Panel) 288H 05/01/19 16:54: Bedside Glucose (Misc Panel) 433H 05/01/19 20:52: Bedside Glucose (Misc Panel) 431H 05/02/19 05:12: Nucleated Red Blood Cells % (auto) 0.0, Prothrombin Time 23.7H, Prothromb Time I nternational Ratio 2.14, Anion Gap 11, Glomerular Filtration Rate 17.2L, Blood Urea Nitrogen 71H, Creatinine 2.90H, Sodium Level 140, Potassium Level 3.6, Chloride Level 108H, Carbon Dioxide Level 21, Calcium Level 8.6L CBC/BMP Laboratory Tests 05/02/19 05:12 Red Blood Count 2.80 L, Mean Corpuscular Volume 95.4, Mean Corpuscular Hemoglobin 31.1, Mean Corpuscular Hemoglobin Concent 32.6, Red Cell Distribution Width 17.0 H, Calcium Level 8.6 L Deborah Shoemaker May 02, 2019 07:26 Will Steiner M.D. May 02, 2019 17:50
[2019-05-02] MEDS: HumaLOG INSULIN (NovoLOG) PER UNIT SC SCH ×5 (07:41→21:29)
[2019-05-02 08:00] VITALS: BP 133/66
[2019-05-02] MEDS: FERROUS GLUCONATE 324 MG TAB PO SCH (08:32)
[2019-05-02] MEDS: predniSONE 2.5 MG TAB PO SCH (08:33)
[2019-05-02] MEDS: CETIRIZINE (ZyrTEC) 10 MG TAB PO SCH (08:35)
[2019-05-02] MEDS: MONTELUKAST 10 MG TAB PO SCH (08:35)
[2019-05-02] MEDS: ATORVASTATIN 20 MG TAB PO SCH (08:35)
[2019-05-02] MEDS: MAGNESIUM OXIDE 400 MG TAB (MAG-OX) PO SCH (08:35)
[2019-05-02] MEDS: CARVedilol 12.5 MG TAB PO SCH ×2 (08:36→21:18)
[2019-05-02] MEDS: DOCUSATE SODIUM 100 MG CAP PO SCH ×2 (08:36→21:18)
[2019-05-02] MEDS: TORSEMIDE 20 MG TAB PO SCH ×2 (08:36→16:58)
[2019-05-02] MEDS: LEVEMIR (INSULIN DETEMIR) 1 UNITS/0.01ML SC SCH (08:37)
[2019-05-02] MEDS: DIGOXIN INJ 0.5 MG/2 ML AMP (J1160) IV SCH (08:38)
[2019-05-02] MEDS: FLUTICASONE PROP 0.05% NASAL SPRAY 16 GM (FLONASE) SCH (08:39)
[2019-05-02] MEDS ORDERED: SLF 3 ML SYR IV PRN (15:00)
[2019-05-02 20:00] VITALS: BP 142/64
[2019-05-02] MEDS: WARFARIN SOD 5 MG TAB PO SCH (21:18)
[2019-05-02] MEDS: GABAPENTIN 300 MG CAP PO SCH (21:19)
[2019-05-02] MEDS: SLF 3 ML SYR IV SCH (22:00)
[2019-05-02 23:59] VITALS: BP 120/59
[2019-05-03 04:00] VITALS: BP 122/60
[2019-05-03 05:16] LABS: HEMATOCRIT 27.5 % (36.0-47.0); MEAN CORPUSCULAR HEMOGLOBIN 30.8 pg (27.0-33.0); MEAN CORPUSCULAR HGB CONC 32.7 g/dl (32.0-36.5); MEAN CORPUSCULAR VOLUME 94.2 fl (80.0-96.0); PLATELET COUNT, AUTOMATED 174 10^3/uL (150-450); RED BLOOD COUNT 2.92 10^6/uL (4.00-5.40)
[2019-05-03 05:27] LABS: INR 2.12; PROTHROMBIN TIME 23.5 SECONDS (11.8-14.0)
[2019-05-03 05:39] LABS: CALCIUM LEVEL 8.9 MG/DL (8.8-10.2); CREATININE FOR GFR 2.63 MG/DL (0.55-1.30); GLOMERULAR FILTRATION RATE 19.2 (>45); POTASSIUM SERUM 3.6 MEQ/L (3.5-5.1)
[2019-05-03] MEDS: SLF 3 ML SYR IV SCH (06:16)
[2019-05-03] MEDS: HumaLOG INSULIN (NovoLOG) PER UNIT SC SCH ×3 (07:48→12:17)
[2019-05-03 08:00] VITALS: BP 142/64
[2019-05-03] MEDS: DOCUSATE SODIUM 100 MG CAP PO SCH (08:24)
[2019-05-03] MEDS: LEVEMIR (INSULIN DETEMIR) 1 UNITS/0.01ML SC SCH (08:24)
[2019-05-03] MEDS: TORSEMIDE 20 MG TAB PO SCH (08:25)
[2019-05-03 08:26] VITALS: BP 142/64
[2019-05-03] MEDS: CARVedilol 12.5 MG TAB PO SCH (08:26)
[2019-05-03] MEDS: ATORVASTATIN 20 MG TAB PO SCH (08:26)
[2019-05-03] MEDS: MONTELUKAST 10 MG TAB PO SCH (08:26)
[2019-05-03] MEDS: FLUTICASONE PROP 0.05% NASAL SPRAY 16 GM (FLONASE) SCH (08:26)
[2019-05-03] MEDS: CETIRIZINE (ZyrTEC) 10 MG TAB PO SCH (08:26)
[2019-05-03] MEDS ORDERED: TORS20TA2 PO (10:37)
[2019-05-03] MEDS ORDERED: COUM1TAB17 PO (10:38)
== END 2019-05-03 12:53 | disposition home or self-care (01) | DRG 291 ==
LOC: M ED 19:11 → M ED INP 22:06 → M PCU 04-27 02:37 → OBSVTOIN 04-28 10:19 → M PCU 05-02 22:00
PROVIDERS: ADMIT Internal Medicine; ATTEND Family Medicine
DX: I13.0 Hypertensive heart and chronic kidney disease with heart failure and stage 1 through stage 4 chronic kidney disease, or unspecified chronic kidney disease (principal); I50.33 Acute on chronic diastolic (congestive) heart failure; N18.4 Chronic kidney disease, stage 4 (severe); Z68.42 Body mass index [BMI] 45.0-49.9, adult; Z91.11 Patient's noncompliance with dietary regimen; J45.909 Unspecified asthma, uncomplicated; D50.9 Iron deficiency anemia, unspecified; E11.22 Type 2 diabetes mellitus with diabetic chronic kidney disease; E11.40 Type 2 diabetes mellitus with diabetic neuropathy, unspecified; K74.60 Unspecified cirrhosis of liver; G47.33 Obstructive sleep apnea (adult) (pediatric); E66.01 Morbid (severe) obesity due to excess calories; I42.0 Dilated cardiomyopathy; R74.0 Nonspecific elevation of levels of transaminase and lactic acid dehydrogenase [LDH]; E55.9 Vitamin D deficiency, unspecified; Z95.0 Presence of cardiac pacemaker; Z87.11 Personal history of peptic ulcer disease; Z79.4 Long term (current) use of insulin; Z79.01 Long term (current) use of anticoagulants; Z79.899 Other long term (current) drug therapy; Z88.7 Allergy status to serum and vaccine; Z91.041 Radiographic dye allergy status; Z91.048 Other nonmedicinal substance allergy status

== ENCOUNTER → 2019-05-11 | Outpatient (REF) | payer MEDICARE ==
[~2019-05-11] MED LIST changes: +ALDA25TA2 PO; -ALL10TAB28 PO; +ALL10TAB29 PO; +BASA100I SC; +BUME1TAB3 PO; +CALC1CAP31 PO; +CARV12.5 PO; +COUM1TAB17 PO; +DIGO0.12 PO; +FLOM0.4C39 PO; -FLON1SPR; +IPRA0.00 INH; -MAGN400T PO; +MAGN400T3 PO; +PRED25TA PO; +PRES10CA2 PO; +RISATAB3 PO; +SODI325T9 PO; +TESS100C PO; +TORS100T PO; +TORS20TA2 PO; +XALA0.007 OU; +XELP0.00 OP
[2019-05-11 18:59] LABS: ALBUMIN 2.8 GM/DL (3.2-5.2); BILIRUBIN,TOTAL 0.6 MG/DL (0.2-1.0); CALCIUM LEVEL 9.3 MG/DL (8.8-10.2); CREATININE FOR GFR 2.56 MG/DL (0.55-1.30); GLOMERULAR FILTRATION RATE 19.8 (>45); TOTAL PROTEIN 6.7 GM/DL (6.4-8.2)
[2019-05-11 19:02] LABS: HEMATOCRIT 28.9 % (36.0-47.0); HEMOGLOBIN 9.2 g/dl (12.0-15.5); MEAN CORPUSCULAR HEMOGLOBIN 30.5 pg (27.0-33.0); MEAN CORPUSCULAR HGB CONC 31.8 g/dl (32.0-36.5); MEAN CORPUSCULAR VOLUME 95.7 fl (80.0-96.0); PLATELET COUNT, AUTOMATED 178 10^3/uL (150-450); RED BLOOD COUNT 3.02 10^6/uL (4.00-5.40); WHITE BLOOD COUNT 11.1 10^3/uL (4.0-10.0)
== END ==
LOC: M SFHCADAM 11:31
PROVIDERS: ATTEND Physician Assistant
DX: E11.22 Type 2 diabetes mellitus with diabetic chronic kidney disease (principal); N18.3 Chronic kidney disease, stage 3 (moderate)

== ENCOUNTER → 2019-05-13 | Outpatient (REF) | payer MEDICARE ==
[~2019-05-13] MED LIST changes: +ALLO10TA PO; +ATOR1TAB21 PO; +CYMB1CAP5 PO; -DIGO0.12 PO; +DIGO0.123 PO; -DIGO0.25 PO; +DIGO0.253 PO; +ELIQ2.5T PO; +HYDR-3713 PO; +HYDR-4514 PO; +METO1TAB87 PO; +OXYC1TAB23 PO; +RENV2TAB PO; +SANT250O8 TOP; +SPIR-10 PO
== END ==
LOC: M LAB REF 16:50
PROVIDERS: ATTEND Internal Medicine Nephrology
DX: N18.9 Chronic kidney disease, unspecified (principal); D63.1 Anemia in chronic kidney disease

== ENCOUNTER → 2019-05-17 | Outpatient (REF) | payer MEDICARE ==
[~2019-05-17] MED LIST changes: -ALDA25TA2 PO; -ALLO10TA PO; -ATOR1TAB21 PO; -BUME1TAB3 PO; -CALC1CAP31 PO; -CYMB1CAP5 PO; -DIGO0.123 PO; +DIGO0.25 PO; -DIGO0.253 PO; -ELIQ2.5T PO; -FLOM0.4C39 PO; +FLON1SPR; -HYDR-3713 PO; -HYDR-4514 PO; +MAGN400T PO; -MAGN400T3 PO; -METO1TAB87 PO; -OXYC1TAB23 PO; -RENV2TAB PO; -RISATAB3 PO; -SANT250O8 TOP; -SODI325T9 PO; -SPIR-10 PO; -TORS100T PO
[2019-05-17 14:19] LABS: HEMATOCRIT 27.9 % (36.0-47.0); HEMOGLOBIN 8.8 g/dl (12.0-15.5); MEAN CORPUSCULAR HEMOGLOBIN 30.9 pg (27.0-33.0); MEAN CORPUSCULAR HGB CONC 31.5 g/dl (32.0-36.5); MEAN CORPUSCULAR VOLUME 97.9 fl (80.0-96.0); PLATELET COUNT, AUTOMATED 176 10^3/uL (150-450); RED BLOOD COUNT 2.85 10^6/uL (4.00-5.40); WHITE BLOOD COUNT 10.2 10^3/uL (4.0-10.0)
[2019-05-17 14:28] LABS: ALBUMIN 2.9 GM/DL (3.2-5.2); BILIRUBIN,TOTAL 0.5 MG/DL (0.2-1.0); CREATININE FOR GFR 2.61 MG/DL (0.55-1.30); GLOMERULAR FILTRATION RATE 19.4 (>45); PERCENT SATURATION 29.5 % (13.2-45.0); POTASSIUM SERUM 3.7 MEQ/L (3.5-5.1); TOTAL PROTEIN 6.7 GM/DL (6.4-8.2)
[2019-05-17 14:54] LABS: FOLATE 11.5 NG/ML
== END ==
LOC: M SFHCADAM 10:24
PROVIDERS: ATTEND Physician Assistant
DX: N18.4 Chronic kidney disease, stage 4 (severe) (principal); D64.9 Anemia, unspecified; Z79.01 Long term (current) use of anticoagulants

== ENCOUNTER → 2019-05-18 | Outpatient (CLI) | payer MEDICARE ==
--- NOTE | 2019-05-19 09:25 | REP ---
Clinical: Cough . Comparison: 04/26/2019 . Technique: PA and lateral. Findings: The mediastinum and cardiac silhouette are stable. Cardiomegaly is again appreciated along with pacemaker. The lung duval demonstrate chronic stable changes without acute consolidation, effusion, or pneumothorax. The skeletal structures are intact and normal. Impression: 1. No acute cardiopulmonary process. Electronically Signed by Armani Richards MD 05/18/2019 03:10 P
== END ==
LOC: M ADAMS 12:57
PROVIDERS: ATTEND Physician Assistant
DX: I51.7 Cardiomegaly (principal); R05 Cough; Z95.0 Presence of cardiac pacemaker
CPT/HCPCS: 71046; G0463

== ENCOUNTER 2019-05-28 04:40 | Inpatient (IN) | payer MEDICARE ==
[~2019-05-28] VITALS: Ht 154.9 cm; Wt 119.5 kg
[~2019-05-28 04:40] MED LIST changes: -XALA0.007 OU; -XELP0.00 OP
[2019-05-28 05:33] LABS: BASO # 0.1 10^3/uL (0.0-0.2); BASO % 0.4 % (0.0-1.0); EOS # 0.6 10^3/uL (0.0-0.5); EOS % 4.3 % (0.0-3.0); HEMATOCRIT 30.8 % (36.0-47.0); HEMOGLOBIN 9.8 g/dl (12.0-15.5); LYMPH # 1.2 10^3/uL (1.5-5.0); LYMPH % 8.3 % (24.0-44.0); MEAN CORPUSCULAR HEMOGLOBIN 31.1 pg (27.0-33.0); MEAN CORPUSCULAR HGB CONC 31.8 g/dl (32.0-36.5); MEAN CORPUSCULAR VOLUME 97.8 fl (80.0-96.0); MONO # 1.2 10^3/uL (0.0-0.8); MONO % 8.2 % (0.0-5.0); NEUTROPHILS # 10.9 10^3/uL (1.5-8.5); NEUTROPHILS % 77.2 % (36.0-66.0); PLATELET COUNT, AUTOMATED 195 10^3/uL (150-450); RED BLOOD COUNT 3.15 10^6/uL (4.00-5.40); WHITE BLOOD COUNT 14.1 10^3/uL (4.0-10.0)
[2019-05-28 05:49] LABS: INR 2.79; PROTHROMBIN TIME 29.3 SECONDS (11.8-14.0)
[2019-05-28 06:02] LABS: CALCIUM LEVEL 8.4 MG/DL (8.8-10.2); CREATININE FOR GFR 2.25 MG/DL (0.55-1.30); POTASSIUM SERUM 3.7 MEQ/L (3.5-5.1)
[2019-05-28 06:15] LABS: CK-MB VALUE MASS 2.1 NG/ML (<3.6); MB/CK RELATIVE INDEX 2.08 (< OR =4); THYROID STIMULATING HORMONE 2.28 uIU/ML (0.358-3.740); TROPONIN I 0.04 NG/ML (< 0.10)
[2019-05-28] MEDS ORDERED: MORPHINE 2 MG/ML 1ML SYRINGE (J2270) IV ONE ×2 (08:00→11:00)
[2019-05-28] MEDS ORDERED: ONDANSETRON 4MG/2ML VIAL (J2405) IV ONE (08:00)
[2019-05-28] MEDS: FLUTICASONE PROP 0.05% NASAL SPRAY 16 GM (FLONASE) SCH (09:00)
--- NOTE | 2019-05-28 09:13 | REP ---
REASON: Dyspnea. COMPARISON: 04/26/2019 The technique utilized in obtaining the radiograph has magnified the cardiac silhouette and accentuated the interstitial markings. Cardiomediastinal silhouette and lung duval are unchanged. Dual-chamber bipolar pacemaker device with AICD all stable. No acute patchy parenchymal opacities or pleural effusions have developed. There is no change in the osseous structures. IMPRESSION: Stable chest. Electronically Signed by Nnamdi Glass DO 05/28/2019 09:47 A
[2019-05-28] MEDS ORDERED: XELP0.00 OP (09:24)
--- NOTE | 2019-05-28 10:34 | REPVR ---
EXAM: CT Neck Without Contrast EXAM DATE/TIME: 05/28/2019 9:00 AM CLINICAL HISTORY: 69 years old, female; Other: Right parotitis pain TECHNIQUE: Imaging protocol: Computed tomography images of the neck without contrast. Radiation optimization: All CT scans at this facility use at least one of these dose optimization techniques: automated exposure control; mA and/or kV adjustment per patient size (includes targeted exams where dose is matched to clinical indication); or iterative reconstruction. COMPARISON: No relevant prior studies available. FINDINGS: Nasopharynx: Unremarkable. Oropharynx: Unremarkable. No significant tonsillar enlargement. Hypopharynx: Unremarkable Larynx: Unremarkable. Normal epiglottis. Retropharyngeal space: Unremarkable. Submandibular/Parotid glands: The parotid salivary glands are symmetric with no evidence of calculi or ductal dilatation. There is mild prominence and periglandular edema of the right submandibular gland with a calculus noted in relation to the anterior duct location on axial image 30 measuring about 5 x 7 mm. There is mild asymmetry of the submandibular soft tissues and the duct itself is not well seen in relation to the adjacent soft tissues. Post contrast images may be helpful for better demonstration of the duct. Thyroid: The thyroid gland is normal. Lymph nodes: There is no evidence of lymphadenopathy. Trachea: Visualized trachea is unremarkable. Lungs: The visualized portions of the lung apices are normal. Bones/joints: Limitation: Breathing is noted on these images limiting the interpretation. The spine demonstrates moderate degenerative changes at multiple levels. Soft tissues: See Submandibular/parotid Glands Finding. IMPRESSION: There is mild prominence and periglandular edema of the right submandibular gland with a calculus noted in relation to the anterior duct location on axial image 30 measuring about 5 x 7 mm. There is mild asymmetry of the submandibular soft tissues and the duct itself is not well seen in relation to the adjacent soft tissues. Post contrast images may be helpful for better demonstration of the duct. Electronically signed by: Zeeshan Neal On 05/28/2019 10:34:33 AM
[2019-05-28] MEDS ORDERED: XALA0.007 OU (11:34)
[2019-05-28] MEDS ORDERED: WARF-23 PO (11:34)
[2019-05-28] MEDS ORDERED: TORS20TA2 PO (11:34)
[2019-05-28] MEDS ORDERED: LACTIC ACID 12% LOTION 225 GM BTL TOP PRN (12:15)
[2019-05-28] MEDS: ceFAZolin SOD 1 GM in D5W MINI-BAG PLUS 50 ML IV SCH ×2 (13:13→22:02)
[2019-05-28 14:30] VITALS: BP 148/72
[2019-05-28] MEDS: CETIRIZINE (ZyrTEC) 10 MG TAB PO SCH (17:24)
[2019-05-28] MEDS: TORSEMIDE 20 MG TAB PO SCH (17:24)
[2019-05-28] MEDS: MONTELUKAST 10 MG TAB PO SCH (17:24)
[2019-05-28] MEDS: WARFARIN SOD 2.5 MG TAB PO SCH (17:24)
[2019-05-28] MEDS: CARVedilol 12.5 MG TAB PO SCH ×2 (17:25→22:01)
[2019-05-28] MEDS: ACETAMINOPHEN 500 MG TAB PO PRN (17:25)
[2019-05-28] MEDS: HumaLOG INSULIN (NovoLOG) PER UNIT SC SCH ×2 (17:30→20:06)
[2019-05-28] MEDS ORDERED: DEXTROSE 50% 50 ML SYRINGE IV PRN (17:45)
[2019-05-28] MEDS ORDERED: GLUCOSE 4 GM CHEW TABLET PO PRN (17:45)
[2019-05-28] MEDS ORDERED: GLUCAGON FOR INJ 1 MG VIAL (J1610) SC PRN (17:45)
[2019-05-28 18:00] VITALS: BP 142/72
[2019-05-28] MEDS ORDERED: LEVEMIR (INSULIN DETEMIR) 1 UNITS/0.01ML SC SCH (21:00)
[2019-05-28 22:00] VITALS: BP 139/61
[2019-05-28] MEDS: ATORVASTATIN 20 MG TAB PO SCH (22:01)
[2019-05-28] MEDS: GABAPENTIN 300 MG CAP PO SCH (22:01)
[2019-05-28] MEDS: DOCUSATE SODIUM 100 MG CAP PO SCH (22:01)
[2019-05-28] MEDS: MORPHINE 4 MG/ML 1ML VIAL/SYRINGE (J2270) IV PRN (22:02)
[2019-05-28] MEDS: TORSEMIDE 10 MG TABLET PO SCH (22:26)
[2019-05-28] MEDS: LATANOPROST 0.005% OPHTH SOLN 2.5 ML OU SCH (22:52)
[2019-05-29] MEDS: ACETAMINOPHEN 500 MG TAB PO PRN ×2 (00:20→06:35)
[2019-05-29 02:00] VITALS: BP 135/66
[2019-05-29] MEDS: MORPHINE 4 MG/ML 1ML VIAL/SYRINGE (J2270) IV PRN ×5 (03:33→21:59)
[2019-05-29] MEDS: ceFAZolin SOD 1 GM in D5W MINI-BAG PLUS 50 ML IV SCH (04:46)
--- NOTE | 2019-05-29 05:40 | ECGEPIP ---
[facility] - ED Test Date: 2019-05-28 Pat Name: SOPHIA GRIFFIN Department: Room: - Gender: Female Conceptor: : 1950 Requested By: MERLIN Kline Order Number: [id number] Reading MD: Francisco Enrique Measurements Intervals [place] Rate: 72 P: 147 FL: 152 QRS: 178 QRSD: 141 T: 83 QT: 389 QTc: 427 Interpretive Statements ELECTRONIC ATRIAL PACEMAKER ELECTRONIC VENTRICULAR PACEMAKER SIMILAR TO 04/26/19 Electronically Signed on 05-29-2019 5:40:10 EDT by Francisco Enrique
[2019-05-29 05:52] LABS: HEMATOCRIT 27.3 % (36.0-47.0); HEMOGLOBIN 8.6 g/dl (12.0-15.5); MEAN CORPUSCULAR HGB CONC 31.5 g/dl (32.0-36.5); MEAN CORPUSCULAR VOLUME 98.6 fl (80.0-96.0); PLATELET COUNT, AUTOMATED 165 10^3/uL (150-450); RED BLOOD COUNT 2.77 10^6/uL (4.00-5.40); WHITE BLOOD COUNT 12.9 10^3/uL (4.0-10.0)
[2019-05-29 06:00] VITALS: BP 128/62
[2019-05-29 06:02] LABS: INR 3.38; PROTHROMBIN TIME 34.2 SECONDS (11.8-14.0)
[2019-05-29 06:14] LABS: CALCIUM LEVEL 8.4 MG/DL (8.8-10.2); CREATININE FOR GFR 2.41 MG/DL (0.55-1.30); GLOMERULAR FILTRATION RATE 21.3 (>45); POTASSIUM SERUM 3.4 MEQ/L (3.5-5.1)
[2019-05-29] MEDS: HumaLOG INSULIN (NovoLOG) PER UNIT SC SCH ×4 (07:30→21:00)
[2019-05-29] MEDS: FLUTICASONE PROP 0.05% NASAL SPRAY 16 GM (FLONASE) SCH (09:00)
[2019-05-29] MEDS: MONTELUKAST 10 MG TAB PO SCH (09:12)
[2019-05-29] MEDS: MAGNESIUM OXIDE 400 MG TAB (MAG-OX) PO SCH (09:12)
[2019-05-29] MEDS: FERROUS GLUCONATE 324 MG TAB PO SCH (09:13)
[2019-05-29] MEDS: CETIRIZINE (ZyrTEC) 10 MG TAB PO SCH (09:13)
[2019-05-29] MEDS: DOCUSATE SODIUM 100 MG CAP PO SCH ×2 (09:13→21:30)
[2019-05-29] MEDS: CARVedilol 12.5 MG TAB PO SCH ×2 (09:13→21:30)
[2019-05-29] MEDS: TORSEMIDE 20 MG TAB PO SCH (09:13)
[2019-05-29 10:00] VITALS: BP 115/49
--- NOTE | 2019-05-29 10:24 | HPE ---
DATE OF ADMISSION: 05/28/2019 CHIEF COMPLAINT: Right sialadenitis. HISTORY: Gerson Vargas, 69-year-old patient of our office in [place], well known to our practice, has chronic right buttock wound with calciphylaxis, for which she goes to the wound center, chronic congestive heart failure, preserved ejection fraction, secondary to her hypertensive heart disease, type 2 diabetes, not requiring insulin, stage IV chronic kidney disease for which she is followed by nephrology, atrial fibrillation on chronic anticoagulant therapy with warfarin, obstructive sleep apnea (DEEDEE) on continuous positive airway pressure (CPAP), and nodular cirrhosis secondary to fatty liver. She has had several days of pain in the right lower jaw, came to the emergency room, was found to have sialadenitis on a CT scan, is being admitted for treatment of this. REVIEW OF SYSTEMS: No fever, chills, rectal bleeding, epistaxis, urinary bleeding. MEDICATIONS: Per flow sheet. SOCIAL HISTORY: , nonsmoker. FAMILY HISTORY: Noncontributory. PHYSICAL EXAM: VITAL SIGNS: Per flow sheet. She is afebrile. GENERAL APPEARANCE: Alert, conversant, no distress. HEENT: Pupils equal, round, reactive to light. Tympanic membranes (TMs) and oropharynx benign. She has tenderness in mandibular area on the right side. LUNGS: Clear. HEART: Regular rate and rhythm. ABDOMEN: Soft. Nontender. No masses. 1 to 2+ peripheral edema, which is chronic. LABS: White count 14.1, hemoglobin 9.8, which is baseline, platelets 195. Sodium 144, potassium 3.7, BUN 47, creatinine 2.2, which is baseline, glucose 127. Last hemoglobin A1c was from about a month ago, and it was 7.5% showing good control of her diabetes. Pro-BNP is 3600, which is above her baseline. IMPRESSION: 1. Sialadenitis. Patient admitted to a medical bed. Recommended lemon juices and sour lemon drop candies to promote salivary flow. Begin Ancef 1 gram IV every 8 hours. 2. History of congestive heart failure, preserved ejection fraction. Continue her current diuretic dose. 3. Hyperlipidemia. Continue atorvastatin 40 mg. 4. Hypertension. Continue her current antihypertensives. 5. Atrial fibrillation. Reduce warfarin dose to 2.5 mg daily while on the antibiotic. Daily INRs have been ordered.
[2019-05-29] MEDS: LACTOBACILLUS ACIDOPHILUS CAP (BACID) PO SCH ×2 (12:30→17:12)
[2019-05-29] MEDS: CLINDAMYCIN 600 MG in IV 1 EA IV SCH ×3 (12:58→23:41)
--- NOTE | 2019-05-29 13:02 | IPNPDOC ---
Text Note Date of Service The patient was seen on 05/29/19. NOTE ENT Full note to follow. 69 y.o. diabetic admitted with painful salivary gland obstruction. CT reviewed shows no evidence of sepsis or abscess. There is a calculus blocking duct so I suspect this is the cause of the pain, at this point without infection at this point I agree with coverage with antibiotics, but I like Cleocin if she can tolerate it. Sialogogues and hydration, massage and heat also helpful I may bring her over to the clinic to dilate the duct or extract the stone under local anesthesia. Thank you for consult [facility], I+O [facility] I+O Laboratory Tests 05/29/19 05:23 Red Blood Count 2.77 L, Mean Corpuscular Volume 98.6 H, Mean Corpuscular Hemoglobin 31.0, Mean Corpuscular Hemoglobin Concent 31.5 L, Red Cell Distribution Width 17.2 H, Calcium Level 8.4 L Vital Signs Date Time Temp Pulse Resp B/P (MAP) Pulse Ox O2 Delivery O2 Flow Rate FiO2 05/29/19 10:00 96.8 69 17 115/49 (71) 94 05/28/19 13:45 Room Air I&O- Last 24 Hours up to 6 AM 05/29/19 06:00 Intake Total 450 ml Output Total 650 ml Balance -200 ml LADY HUBBARD MD May 29, 2019 13:02
[2019-05-29 14:00] VITALS: BP 117/61
[2019-05-29 18:00] VITALS: BP 118/60
--- NOTE | 2019-05-29 20:30 | IPN ---
DATE: 05/29/2019 Gerson is seen in [facility]. We had a little problem last night where her gave the patient Levemir insulin and U500 insulin coverage without the nurse being made aware of it. We had some communication about this and indicated that that cannot happen as it could lead to potentially a lethal hypoglycemia. They are willing to follow hospital protocol now including use of U100 insulin coverage rather than her U500 insulin that she has at home. Her oral intake is poor, blood sugar was only 80 this morning. She is having a lot of pain in her left submandibular area and has not responded to warm compresses and saliva stimulating sour candies and lemon wedges. PHYSICAL EXAMINATION: Blood pressure 115/49, pulse 69, respiratory rate 17, 94% oxygen saturation. Lungs clear. Heart regular rate, rhythm. Abdomen soft, obese, nontender. Right hip is dressed from wound center. 1+ peripheral edema. She is tender to palpate right submandibular area, is more swollen and tender than yesterday. LABORATORY DATA: White count 12.9, hemoglobin 8.6, platelets 165, INR 3.3, potassium 3.4, creatinine is up to 2.4. IMPRESSION: 1. Right sialadenitis. Continue IV Ancef. Increase morphine dose as she is quite uncomfortable. Consult ear, nose, and throat (ENT). 2. Diabetes. Patient and agree to let the nurses administer insulin and agree to use the U100 insulin rather than the U500 that she has at home. I am concerned about her becoming hypoglycemic as her oral intake is poor due to pain from the sialadenitis. I am reducing the Levemir dose. She understands I would rather she were hyperglycemic than the potential to run hypoglycemic. 3. Hypertension. Will continue her antihypertensive drugs. 4. Atrial fibrillation. I reduced the warfarin dose on admission. I am holding it today as her INR is supratherapeutic. Daily INRs have been ordered. 5. Hyperlipidemia. Continue atorvastatin 40 mg daily. 6. Chronic wound right hip. Dressing changes per Dr. Hickman at the wound center.
--- NOTE | 2019-05-29 20:46 | IPN ---
DATE: 05/29/[address] Brasher, the ear, nose, and throat (ENT) consult, who plans to see her tomorrow. Recommended changing her from Ancef to IV Cleocin so I put those orders in. He is aware of the consultation.
[2019-05-29] MEDS: LATANOPROST 0.005% OPHTH SOLN 2.5 ML OU SCH (21:26)
[2019-05-29] MEDS: GABAPENTIN 300 MG CAP PO SCH (21:30)
[2019-05-29] MEDS: ATORVASTATIN 20 MG TAB PO SCH (21:30)
[2019-05-29] MEDS: TORSEMIDE 10 MG TABLET PO SCH (21:30)
[2019-05-29 22:00] VITALS: BP 126/59
[2019-05-29] MEDS: LEVEMIR (INSULIN DETEMIR) 1 UNITS/0.01ML SC SCH (22:26)
[2019-05-29] MEDS ORDERED: LEVEMIR (INSULIN DETEMIR) 1 UNITS/0.01ML SC ONE (22:30)
[2019-05-29] MEDS: D5W/0.45% SODIUM CHLORIDE 1,000 ML IV SCH (23:40)
[2019-05-30] MEDS: MORPHINE 4 MG/ML 1ML VIAL/SYRINGE (J2270) IV PRN ×4 (02:13→17:17)
[2019-05-30 02:15] VITALS: BP 130/58
[2019-05-30] MEDS: CLINDAMYCIN 600 MG in IV 1 EA IV SCH ×4 (05:34→23:51)
[2019-05-30 05:42] LABS: HEMATOCRIT 30.7 % (36.0-47.0); HEMOGLOBIN 9.7 g/dl (12.0-15.5); MEAN CORPUSCULAR HEMOGLOBIN 31.4 pg (27.0-33.0); MEAN CORPUSCULAR HGB CONC 31.6 g/dl (32.0-36.5); MEAN CORPUSCULAR VOLUME 99.4 fl (80.0-96.0); PLATELET COUNT, AUTOMATED 203 10^3/uL (150-450); RED BLOOD COUNT 3.09 10^6/uL (4.00-5.40)
[2019-05-30 05:53] LABS: INR 3.77; PROTHROMBIN TIME 37.3 SECONDS (11.8-14.0)
[2019-05-30 06:00] VITALS: BP 12/57
[2019-05-30 06:07] LABS: CALCIUM LEVEL 8.4 MG/DL (8.8-10.2); CREATININE FOR GFR 2.73 MG/DL (0.55-1.30); GLOMERULAR FILTRATION RATE 18.4 (>45); POTASSIUM SERUM 3.6 MEQ/L (3.5-5.1)
[2019-05-30] MEDS: HumaLOG INSULIN (NovoLOG) PER UNIT SC SCH ×4 (07:30→20:13)
[2019-05-30] MEDS: LACTOBACILLUS ACIDOPHILUS CAP (BACID) PO SCH ×3 (08:00→17:15)
[2019-05-30] MEDS: DIGOXIN 0.25 MG TAB PO SCH (09:00)
[2019-05-30] MEDS: TORSEMIDE 20 MG TAB PO SCH (09:00)
[2019-05-30] MEDS: MONTELUKAST 10 MG TAB PO SCH (09:00)
[2019-05-30] MEDS: DOCUSATE SODIUM 100 MG CAP PO SCH ×2 (09:00→20:12)
[2019-05-30] MEDS: CETIRIZINE (ZyrTEC) 10 MG TAB PO SCH (09:00)
[2019-05-30] MEDS: CARVedilol 12.5 MG TAB PO SCH ×2 (09:00→20:12)
--- NOTE | 2019-05-30 09:21 | IPNPDOC ---
Subjective Date Seen The patient was seen on 05/30/19. Subjective Chief Complaint/HPI Patient lying in bed as I entered the room. Her is at bedside. Patient's pain has not improved. She is unable to eat or drink d/t pain. No fevers Constitutional: Denies: Chills, Fever ENT: Reports: Other Symptoms (Right sided mouth pain ) Pulmonary: Denies: Dyspnea, Cough Cardiovascular: Denies: Chest Pain, Palpitations, Orthopnea, Edema Gastrointestinal: Denies: Nausea, Vomiting, Abdominal Pain Psych: Reports: Mood Normal Objective Physical Examination General Exam: Positive: Alert, No Acute Distress ENT Exam: Positive: Other ENT (Pain upon palpation with mild swelling noted right mandibular region ); Negative: Mucous membr. moist/pink Neck Exam: Positive: Supple; Negative: JVD Chest Exam: Positive: Clear to auscultation, Normal air movement; Negative: Rales, Wheezing Heart Exam: Positive: Rate Normal, Irregular Rhythm, Murmurs Extremity Exam: Negative: Edema Psych Exam: Positive: Mood NL Assessment /Plan Problems (1) Sialadenitis Status: Acute Problem Specific Plan: Consult Specialist Problem Text: 05/30/19: Pain persists. ENT was consulted. Dr. Brasher recommended to continue with abx, sialogogues and hydration, massage and heat. We may want to consider repeat study as patient is unable to eat or drink and pain is worse. Day #2 of Clindamycin (2) CHF (congestive heart failure) Status: Chronic Response to Treatment: Stable Problem Text: 05/30/19: Appears well compensated on exam. She remains on her diuretics. She is receiving gentle hydration with D5/NS. We will monitor closely> Actually she looks a little dry with reduced skin turgor, no edema and increasing BUN/Creat. Will stop diuretics for now. (3) Diabetes mellitus with stage 4 chronic kidney disease GFR 15-29 Status: Chronic Response to Treatment: Stable Problem Text: 05/30/19: Patient is on D5/NS at 75/hr. Patient has been unable to eat or drink d/t mouth pain. BG this morning 139. Insulin was held d/t patient poor oral intake. We do want her to go hypoglycemic. Renal function appears fairly stable. Baseline Cre ~2.40-2.70, GFR ~20. We will continue to monitor (4) Atrial fibrillation Status: Chronic Response to Treatment: Stable Problem Text: 05/30/19: Rate controlled. Warfarin on hold, INR 3.77 this morning. We will continue to monitor (5) Hypertension Status: Chronic Response to Treatment: Stable Problem Text: 05/30/19: Pressures stable Plan/VTE VTE Prophylaxis Ordered?: Yes (Warfarin ) VS, I&O, 24H, Fishbone Vital Signs/I&O Vital Signs Date Time Temp Pulse Resp B/P (MAP) Pulse Ox O2 Delivery O2 Flow Rate FiO2 05/30/19 06:00 99.1 70 20 12/57 (42) 90 05/28/19 13:45 Room Air I&O- Last 24 Hours up to 6 AM 05/30/19 05:59 Intake Total 350 ml Output Total 1200 ml Balance -850 ml Laboratory Data 24H LABS Laboratory Tests 2 05/29/19 11:46: Bedside Glucose (Misc Panel) 99 05/29/19 16:40: Bedside Glucose (Misc Panel) 97 05/29/19 21:32: Bedside Glucose (Misc Panel) 105 05/30/19 05:26: Nucleated Red Blood Cells % (auto) 0.0, Prothrombin Time 37.3H, Prothromb Time International Ratio 3.77, Anion Gap 9, Glomerular Filtration Rate 18.4L, Blood Urea Nitrogen 57H, Creatinine 2.73H, Sodium Level 141, Potassium Level 3.6, Chloride Level 111H, Carbon Dioxide Level 21, Calcium Level 8.4L CBC/BMP Laboratory Tests 05/30/19 05:26 Red Blood Count 3.09 L, Mean Corpuscular Volume 99.4 H, Mean Corpuscular Hemoglobin 31.4, Mean Corpuscular Hemoglobin Concent 31.6 L, Red Cell Distribution Width 17.5 H, Calcium Level 8.4 L DAXA ARCOS May 30, 2019 09:21 Jon Hahn MD May 30, 2019 15:31
[2019-05-30 10:00] VITALS: BP 125/56
[2019-05-30] MEDS: FLUTICASONE PROP 0.05% NASAL SPRAY 16 GM (FLONASE) SCH (10:35)
--- NOTE | 2019-05-30 10:52 | IPNPDOC ---
Text Note Date of Service The patient was seen on 05/30/19. NOTE Patient seen this morning. She is in moderate pain and cannot swallow her pills according to nursing staff Afebrile The external neck is quite large because of morbid obesity. I do not feel induration or see cellulitis The right sub max gland is palapble and tender Intra orally there is induration and marked tenderness and edema at distal Warthin duct there may be a stone trying to extrude The palate is normal and tongue base is soft The pain is mostrly the mechanical obstruction of the duct and not sepsis Her inabiltiy to swallow is unexplained Will plan to bring to Clinic and attmept under local an extraction of the stone. Keep her hydrated and pain under control until then. VS,Fishbone, I+O VS, Fishbone, I+O Laboratory Tests 05/30/19 05:26 Red Blood Count 3.09 L, Mean Corpuscular Volume 99.4 H, Mean Corpuscular Hem oglobin 31.4, Mean Corpuscular Hemoglobin Concent 31.6 L, Red Cell Distribution Width 17.5 H, Calcium Level 8.4 L Vital Signs Date Time Temp Pulse Resp B/P (MAP) Pulse Ox O2 Delivery O2 Flow Rate FiO2 05/30/19 10:00 98.9 40 19 125/56 (79) 92 05/28/19 13:45 Room Air I&O- Last 24 Hours up to 6 AM 05/30/19 05:59 Intake Total 350 ml Output Total 1200 ml Balance -850 ml LADY HUBBARD MD May 30, 2019 10:52
[2019-05-30 14:00] VITALS: BP 126/56
[2019-05-30] MEDS: D5W/0.45% SODIUM CHLORIDE 1,000 ML IV SCH ×2 (15:41→23:51)
[2019-05-30 18:00] VITALS: BP 127/55
[2019-05-30] MEDS: WARFARIN SOD 2.5 MG TAB PO SCH (18:15)
[2019-05-30] MEDS: ATORVASTATIN 20 MG TAB PO SCH (20:12)
[2019-05-30] MEDS: GABAPENTIN 300 MG CAP PO SCH (20:12)
[2019-05-30] MEDS: LEVEMIR (INSULIN DETEMIR) 1 UNITS/0.01ML SC SCH (20:13)
[2019-05-30] MEDS: LATANOPROST 0.005% OPHTH SOLN 2.5 ML OU SCH (21:24)
[2019-05-30 22:00] VITALS: BP 116/52
[2019-05-31] VITALS (9 sets, daily range): BP systolic 102–141; BP diastolic 40–68
[2019-05-31] MEDS: MORPHINE 4 MG/ML 1ML VIAL/SYRINGE (J2270) IV PRN (05:19)
[2019-05-31] MEDS: CLINDAMYCIN 600 MG in IV 1 EA IV SCH ×4 (05:20→23:56)
[2019-05-31 06:08] LABS: HEMATOCRIT 26.7 % (36.0-47.0); HEMOGLOBIN 8.4 g/dl (12.0-15.5); MEAN CORPUSCULAR HEMOGLOBIN 30.5 pg (27.0-33.0); MEAN CORPUSCULAR HGB CONC 31.5 g/dl (32.0-36.5); MEAN CORPUSCULAR VOLUME 97.1 fl (80.0-96.0); PLATELET COUNT, AUTOMATED 193 10^3/uL (150-450); RED BLOOD COUNT 2.75 10^6/uL (4.00-5.40); WHITE BLOOD COUNT 11.6 10^3/uL (4.0-10.0)
[2019-05-31 06:19] LABS: INR 3.75; PROTHROMBIN TIME 37.1 SECONDS (11.8-14.0)
[2019-05-31 06:40] LABS: CALCIUM LEVEL 7.9 MG/DL (8.8-10.2); CREATININE FOR GFR 3.13 MG/DL (0.55-1.30); DIGOXIN LEVEL 0.9 NG/ML (0.5-2.0); GLOMERULAR FILTRATION RATE 15.7 (>45); POTASSIUM SERUM 3.6 MEQ/L (3.5-5.1)
[2019-05-31] MEDS: HumaLOG INSULIN (NovoLOG) PER UNIT SC SCH ×4 (07:30→20:23)
[2019-05-31] MEDS: LACTOBACILLUS ACIDOPHILUS CAP (BACID) PO SCH ×3 (08:00→17:35)
--- NOTE | 2019-05-31 08:44 | IPNPDOC ---
Subjective Date Seen The patient was seen on 05/31/19. Subjective Chief Complaint/HPI malaise, low energy. Constitutional: Reports: Chills (chills w/o fever) ENT: Denies: Head Aches Pulmonary: Denies: Dyspnea, Cough Cardiovascular: Denies: Chest Pain, Orthopnea Hematologic: Denies: Bruising Neurological: Denies: Weakness Objective Physical Examination General Exam: Positive: Alert, No Acute Distress ENT Exam: Positive: Other ENT (Pain upon palpation with mild swelling noted right submandibular region ); Negative: Mucous membr. moist/pink Neck Exam: Positive: Supple; Negative: JVD Chest Exam: Positive: Clear to auscultation, Normal air movement; Negative: Rales, Wheezing Heart Exam: Positive: Rate Normal, Irregular Rhythm, Murmurs Abdomen Exam: Positive: Normal bowel sounds Extremity Exam: Negative: Clubbing, Edema Skin Exam: Negative: Rash Psych Exam: Positive: Mood NL Assessment /Plan Problems (1) Sialadenitis Status: Acute Problem Specific Plan: Consult Specialist Problem Text: 05/31: patient to go to ENT office for attempt to remove stone from submandibular salivary gland and facilitate drainage this am. Hopefully this will improve pain 05/30/19: Pain persists. ENT was consulted. Dr. Brasher recommended to continue with abx, sialogogues and hydration, massage and heat. We may want to consider repeat study as patient is unable to eat or drink and pain is worse. Day #2 of Clindamycin (2) CHF (congestive heart failure) Status: Chronic Response to Treatment: Stable Problem Text: 05/31: BUN/Creatinine higher. Lying supine w/o dyspnea. Looks dry. Will increase IV fluid rate to 100/hour until she can resume po intake. 05/30/19: Appears well compensated on exam. She remains on her diuretics. She is receiving gentle hydration with D5/NS. We will monitor closely> Actually she looks a little dry with reduced skin turgor, no edema and increasing BUN/Creat. Will stop diuretics for now. (3) Diabetes mellitus with stage 4 chronic kidney disease GFR 15-29 Status: Chronic Response to Treatment: Stable Problem Text: 05/30/19: Patient is on D5/NS at 75/hr. Patient has been unable to eat or drink d/t mouth pain. BG this morning 139. Insulin was held d/t patient poor oral intake. We do want her to go hypoglycemic. Renal function appears fairly stable. Baseline Cre ~2.40-2.70, GFR ~20. We will continue to monitor (4) Atrial fibrillation Status: Chronic Response to Treatment: Stable Problem Text: 05/30/19: Rate controlled. Warfarin on hold, INR 3.77 this morning. We will continue to monitor (5) Hypertension Status: Chronic Response to Treatment: Stable Problem Text: 05/30/19: Pressures stable Plan/VTE VTE Prophylaxis Ordered?: Yes (Warfarin ) VS, I&O, 24H, Fishbone Vital Signs/I&O Vital Signs Date Time Temp Pulse Resp B/P (MAP) Pulse Ox O2 Delivery O2 Flow Rate FiO2 05/31/19 08:00 98.8 72 18 118/52 (74) 93 05/28/19 13:45 Room Air I&O- Last 24 Hours up to 6 AM 05/31/19 06:00 Intake Total 2000 ml Output Total 300 ml Balance 1700 ml Laboratory Data 24H LABS Laboratory Tests 2 05/30/19 11:12: Bedside Glucose (Misc Panel) 122H 05/30/19 16:25: Bedside Glucose (Misc Panel) 102 05/30/19 19:53: Bedside Glucose (Misc Panel) 109 05/31/19 05:50: Nucleated Red Blood Cells % (auto) 0.0, Prothrombin Time 37.1H, Prothromb Time International Ratio 3.75, Anion Gap 12, Glomerular Filtration Rate 15.7L, Blood Urea Nitrogen 61H, Creatinine 3.13H, Sodium Level 141, Potassium Level 3.6, Chloride Level 111H, Carbon Dioxide Level 18L, Calcium Level 7.9L, Digoxin Level 0.9 CBC/BMP Laboratory Tests 05/31/19 05:50 Red Blood Count 2.75 L, Mean Corpuscular Volume 97.1 H, Mean Corpuscular Hemoglobin 30.5, Mean Corpuscular Hemoglobin Concent 31.5 L, Red Cell Distribution Width 17.4 H, Calcium Level 7.9 L Jon Hahn MD May 31, 2019 08:44
[2019-05-31] MEDS: MONTELUKAST 10 MG TAB PO SCH (09:00)
[2019-05-31] MEDS: MAGNESIUM OXIDE 400 MG TAB (MAG-OX) PO SCH (09:00)
[2019-05-31] MEDS: CARVedilol 12.5 MG TAB PO SCH ×2 (09:00→20:48)
[2019-05-31] MEDS: CETIRIZINE (ZyrTEC) 10 MG TAB PO SCH (09:00)
[2019-05-31] MEDS: DOCUSATE SODIUM 100 MG CAP PO SCH ×2 (09:00→20:48)
[2019-05-31] MEDS: FERROUS GLUCONATE 324 MG TAB PO SCH (09:00)
[2019-05-31] MEDS: FLUTICASONE PROP 0.05% NASAL SPRAY 16 GM (FLONASE) SCH (09:03)
[2019-05-31] MEDS: D5W/0.45% SODIUM CHLORIDE 1,000 ML IV SCH ×2 (09:03→20:53)
[2019-05-31] MEDS: NYSTATIN 100,000 UNITS/GM TOPICAL PWD 15 GM TOP SCH ×2 (14:30→20:49)
[2019-05-31] MEDS: GABAPENTIN 300 MG CAP PO SCH (20:47)
[2019-05-31] MEDS: ATORVASTATIN 20 MG TAB PO SCH (20:48)
[2019-05-31] MEDS: LATANOPROST 0.005% OPHTH SOLN 2.5 ML OU SCH (20:48)
[2019-05-31] MEDS: LEVEMIR (INSULIN DETEMIR) 1 UNITS/0.01ML SC SCH (20:49)
[2019-06-01 02:00] VITALS: BP 122/71
[2019-06-01] MEDS: CLINDAMYCIN 600 MG in IV 1 EA IV SCH ×3 (05:23→18:20)
[2019-06-01 06:00] VITALS: BP 117/69
[2019-06-01 06:54] LABS: HEMATOCRIT 23.6 % (36.0-47.0); HEMOGLOBIN 7.5 g/dl (12.0-15.5); MEAN CORPUSCULAR HEMOGLOBIN 30.5 pg (27.0-33.0); MEAN CORPUSCULAR HGB CONC 31.8 g/dl (32.0-36.5); MEAN CORPUSCULAR VOLUME 95.9 fl (80.0-96.0); PLATELET COUNT, AUTOMATED 194 10^3/uL (150-450); RED BLOOD COUNT 2.46 10^6/uL (4.00-5.40); WHITE BLOOD COUNT 10.4 10^3/uL (4.0-10.0)
[2019-06-01 07:09] LABS: INR 3.51; PROTHROMBIN TIME 35.2 SECONDS (11.8-14.0)
[2019-06-01 07:24] LABS: CALCIUM LEVEL 7.6 MG/DL (8.8-10.2); CREATININE FOR GFR 3.45 MG/DL (0.55-1.30); GLOMERULAR FILTRATION RATE 14.1 (>45); POTASSIUM SERUM 3.2 MEQ/L (3.5-5.1)
[2019-06-01] MEDS ORDERED: POTASSIUM CHLORIDE 10% LIQ 20 MEQ/15 ML UDC PO ONE (09:00)
[2019-06-01 09:05] VITALS: BP 114/62
[2019-06-01] MEDS: HumaLOG INSULIN (NovoLOG) PER UNIT SC SCH ×4 (09:20→21:00)
[2019-06-01] MEDS: LACTOBACILLUS ACIDOPHILUS CAP (BACID) PO SCH ×3 (09:20→17:28)
[2019-06-01] MEDS ORDERED: POTASSIUM CHLORIDE 10 MEQ SR TABLET PO ONE (10:00)
--- NOTE | 2019-06-01 10:07 | IPNPDOC ---
Subjective Date Seen The patient was seen on 06/01/19. Subjective Chief Complaint/HPI Patient reports mouth pain to be improved. She states she feels weak. She has started to eat soft foods Constitutional: Denies: Chills, Fever ENT: Denies: Dysphagia, Sore Throat Pulmonary: Denies: Cough Cardiovascular: Denies: Chest Pain, Palpitations, Edema Gastrointestinal: Denies: Nausea, Vomiting, Abdominal Pain Psych: Reports: Mood Normal Objective Physical Examination General Exam: Positive: Alert, No Acute Distress ENT Exam: Positive: Mucous membr. moist/pink Neck Exam: Positive: Supple; Negative: JVD Chest Exam: Positive: Clear to auscultation, Normal air movement; Negative: Rales, Wheezing Heart Exam: Positive: Rate Normal, Irregular Rhythm, Murmurs Abdomen Exam: Positive: Normal bowel sounds Extremity Exam: Negative: Clubbing, Edema Skin Exam: Negative: Rash Psych Exam: Positive: Mood NL Assessment /Plan Problems (1) Sialadenitis Status: Acute Problem Specific Plan: Consult Specialist Problem Text: 06/01/19: S/P stone extraction/suction. Patient doing much better. She is tolerating a soft diet. Day # 4 of clindamycin. I will discuss with attending discontinuation date of abx 05/31: patient to go to ENT office for attempt to remove stone from submandibular salivary gland and facilitate drainage this am. Hopefully this will improve pain 05/30/19: Pain persists. ENT was consulted. Dr. Brasher recommended to continue with abx, sialogogues and hydration, massage and heat. We may want to consider repeat study as patient is unable to eat or drink and pain is worse. Day #2 of Clindamycin (2) Acute on chronic kidney failure Status: Acute Problem Text: 06/01/19: GFR down to 14.1, Cre 3.45. Baseline Cre ~2.5, Baseline GFR ~25. Nephrology consulted (3) Anemia Status: Chronic Problem Text: 06/01/19: Hgb 7.5. Baseline ~8-10. Transfuse 1 unit PRBC, consent signed (4) CHF (congestive heart failure) Status: Chronic Response to Treatment: Stable Problem Text: 06/01/19: Looks well compensated today. Diuretics remain on hold. She has good oral intake. We will d/c IVF. We will continue to monitor 05/31: BUN/Creatinine higher. Lying supine w/o dyspnea. Looks dry. Will increase IV fluid rate to 100/hour until she can resume po intake. 05/30/19: Appears well compensated on exam. She remains on her diuretics. She is receiving gentle hydration with D5/NS. We will monitor closely> Actually she looks a little dry with reduced skin turgor, no edema and increasing BUN/Creat. Will stop diuretics for now. (5) Diabetes mellitus with stage 4 chronic kidney disease GFR 15-29 Status: Chronic Response to Treatment: Stable Problem Text: 05/30/19: Patient is on D5/NS at 75/hr. Patient has been unable to eat or drink d/t mouth pain. BG this morning 139. Insulin was held d/t patient poor oral intake. We do want her to go hypoglycemic. Renal function appears fairly stable. Baseline Cre ~2.40-2.70, GFR ~20. We will continue to monitor (6) Atrial fibrillation Status: Chronic Response to Treatment: Stable Problem Text: 06/01/19: Rate controlled. INR 3.5. Coumadin remains on hold 05/30/19: Rate controlled. Warfarin on hold, INR 3.77 this morning. We will continue to monitor (7) Hypertension Status: Chronic Response to Treatment: Stable Problem Text: 05/30/19: Pressures stable Plan/VTE VTE Prophylaxis Ordered?: Yes (Warfarin ) VS, I&O, 24H, Fishbone Vital Signs/I&O Vital Signs Date Time Temp Pulse Resp B/P (MAP) Pulse Ox O2 Delivery O2 Flow Rate FiO2 06/01/19 06:00 97.9 88 18 117/69 (85) 95 05/28/19 13:45 Room Air I&O- Last 24 Hours up to 6 AM 06/01/19 06:00 Intake Total 2250 ml Output Total 450 ml Balance 1800 ml Laboratory Data 24H LABS Laboratory Tests 2 05/31/19 11:30: Bedside Glucose (Misc Panel) 136H 05/31/19 16:59: Bedside Glucose (Misc Panel) 131H 05/31/19 20:22: Bedside Glucose (Misc Panel) 122H 06/01/19 05:45: Nucleated Red Blood Cells % (auto) 0.0, Prothrombin Time 35.2H, Prothromb Time International Ratio 3.51, Anion Gap 14, Glomerular Filtration Rate 14.1L, Blood Urea Nitrogen 69H, Creatinine 3.45H, Sodium Level 139, Potassium Level 3.2L, Chloride Level 108H, Carbon Dioxide Level 17L, Calcium Level 7.6L CBC/BMP Laboratory Tests 06/01/19 05:45 Red Blood Count 2.46 L, Mean Corpuscular Volume 95.9, Mean Corpuscular Hemoglobin 30.5, Mean Corpuscular Hemoglobin Concent 31.8 L, Red Cell Distribution Width 17.2 H, Calcium Level 7.6 L DAXA ARCOS CERTIFIED PERSONAL CHEF Jun 01, 2019 09:35
[2019-06-01] MEDS: FLUTICASONE PROP 0.05% NASAL SPRAY 16 GM (FLONASE) SCH (10:16)
[2019-06-01] MEDS: CETIRIZINE (ZyrTEC) 10 MG TAB PO SCH (10:16)
[2019-06-01] MEDS: MONTELUKAST 10 MG TAB PO SCH (10:16)
[2019-06-01] MEDS: DOCUSATE SODIUM 100 MG CAP PO SCH ×2 (10:17→21:00)
[2019-06-01] MEDS: DIGOXIN 0.25 MG TAB PO SCH (10:17)
[2019-06-01] MEDS: CARVedilol 12.5 MG TAB PO SCH ×2 (10:17→21:29)
[2019-06-01] MEDS: NYSTATIN 100,000 UNITS/GM TOPICAL PWD 15 GM TOP SCH ×2 (10:18→21:30)
--- NOTE | 2019-06-01 10:49 | IPNPDOC ---
Text Note Date of Service The patient was seen on 06/01/19. NOTE Post I and D Warthins duct and floor of mouth sepsis Afebrile today. Less pain I think it is ok to restart anticoagulation as no further surgery is planned I would continue IV ABX for 48 hours while she is being medically stablized and then consider 2 weeks of Outpatient oral Cleocin Thank you Herrera [place], I+O VSHerrera I+O Laboratory Tests 06/01/19 05:45 Red Blood Count 2.46 L, Mean Corpuscular Volume 95.9, Mean Corpuscular Hemoglobin 30.5, Mean Corpuscular Hemoglobin Concent 31.8 L, Red Cell Distribution Width 17.2 H, Calcium Level 7.6 L Vital Signs Date Time Temp Pulse Resp B/P (MAP) Pulse Ox O2 Delivery O2 Flow Rate FiO2 06/01/19 10:37 70 18 97 06/01/19 09:05 96.7 114/62 (79) 05/28/19 13:45 Room Air I&O- Last 24 Hours up to 6 AM 06/01/19 05:59 Intake Total 2700 ml Output Total 450 ml Balance 2250 ml LADY HUBBARD MD Jun 01, 2019 10:49
[2019-06-01 11:25] LABS: PERCENT SATURATION 24.1 % (13.2-45.0)
[2019-06-01] MEDS: FUROSEMIDE 40 MG/4 ML VIAL (J1940) IV SCH ×2 (12:03→18:20)
--- NOTE | 2019-06-01 12:34 | CR ---
DATE OF CONSULTATION: 06/01/2019 REQUESTING PHYSICIAN: Dr. Roshan Covington. REASON FOR CONSULTATION: Management of acute kidney injury superimposed on chronic kidney disease. CHIEF COMPLAINT: The patient was admitted on May 29, 2019 with right- sided jaw pain. HISTORY OF PRESENT ILLNESS: Gerson Vargas is a 69-year-old female with past medical history of morbid obesity, chronic kidney disease stage IV, breast baseline creatinine of around the 2.5. She follows up in nephrology service as outpatient. Multiple other comorbidities including heart failure with preserved ejection fraction hypertension, diabetes mellitus type 2. She presented on May 29, 2019 with right-sided jaw pain. She was found to have a right sided sialadenitis. She got incision and drainage of the Juju's duct on May 31, 2019. She is getting the antibiotics. Her creatinine on admission was 2.25, which has been getting worse despite the IV fluid hydration. It has bumped up to 3.4 today. Nephrology service was called for further help in the management of this patient's acute kidney injury. I saw and evaluated the patient this morning at the bedside. She was sitting up in no distress. He was getting IV fluid hydration. She reports that she gets short of breath when she lays flat. She denies any lower extremity edema. The patient and her report that they were going to attend the [facility] class as outpatient for education about dialysis. PAST MEDICAL HISTORY: Past medical history of chronic kidney disease stage IV. Morbid obesity. Diabetes mellitus type 2. Heart failure with preserved ejection fraction. Chronic right buttock wound. Hypertension with hypertensive heart disease. Hyperlipidemia. Anemia and chronic kidney disease. Obstructive sleep apnea on CPAP. Paroxysmal atrial fibrillation anticoagulated with Coumadin. Liver cirrhosis. PAST SURGICAL HISTORY: Status post pacemaker placement. History of esophagogastroduodenoscopy (EGD) and colonoscopy last year. Ventral hernia repair times two. Tonsillectomy. Adenoidectomy. ALLERGIES: The patient is allergic to tape IV contrast media. TETANUS IMMUNOGLOBULIN. FAMILY HISTORY: Positive family history of diabetes and hypertension. No history of end-stage renal disease requiring hemodialysis. SOCIAL HISTORY: The patient lives at home with her . She denies any smoking, illicit drug abuse or alcohol abuse. REVIEW OF SYSTEMS: CONSTITUTIONAL: Patient reports feeling weak and tired. EYES: She denies any blurry vision, double vision. EAR, NOSE, THROAT (ENT): She denies any ear discharge. She does report recent incision and drainage of the right-sided salivary duct. CARDIOVASCULAR: She reports history of congestive heart failure (CHF) but she denies any chest pain. RESPIRATORY: She does report orthopnea and shortness of breath on moderate exertion GASTROINTESTINAL GI: She denies any nausea, vomiting. GENITOURINARY: She does report difficulty with urination but she denies any dysuria. MUSCULOSKELETAL: She denies any muscle aches and pains. SKIN: She denies any rashes. She does report ulcerations in the groin area site. PSYCH: She denies any depression or anxiety. ENDOCRINE: She reports history of diabetes mellitus type 2. HEMATOLOGY/ONCOLOGY: She denies any easy bleeding or bruising. CENTRAL NERVOUS SYSTEM (GUN SYNCHRONIZER): She denies any strokes or seizures. All other review of systems is negative. PHYSICAL EXAMINATION GENERAL: The patient is awake, alert, oriented times three, sitting up in the bed in no apparent distress. VITAL SIGNS: Temperature is 96.7 degrees Fahrenheit, blood pressure 114/62, pulse is 73, respiratory of 18, saturating 99% on room air. HEAD AND NECK EXAM: Extraocular muscles intact. Pupils equally round and reactive to light. Mucous membranes are moist. NECK: Neck is supple. She has moderately elevated jugular venous distention (JVD). CARDIOVASCULAR: S1, S2, irregularly irregular. No edema of the bilateral lower extremities. RESPIRATORY: Mildly decreased breath sounds at the bases, otherwise no active rales or rhonchi. ABDOMEN: Soft, obese, positive bowel sounds. Nontender. GENITOURINARY: Patient's bedside bladder scan was done. I could not see any evidence of urinary retention. MUSCULOSKELETAL: No clubbing or cyanosis. Pulses are 2+. GUN SYNCHRONIZER: No focal deficit. Power is 5/5 in bilateral upper extremities. LAB REVIEW: CBC showed WBC of 10.4, hemoglobin 7.5, platelets of 194, INR is 3.5. Urinalysis is not available. BMP showed sodium 139, potassium 3.2, chloride 108, bicarb 17, BUN 69, creatinine is 3.4, calcium 7.6, iron is 47. TIBC 195, transferrin saturation is 24.1, ferritin is 213. CURRENT INPATIENT MEDICATIONS: The patient's medications include: - clindamycin 600 mg IV every 6 hourly. - She was on IV fluids which has been stopped now. - Tylenol as needed - Lipitor 40 mg nightly - Coreg 12.5 mg by mouth twice a day. - cetirizine 10 mg daily - digoxin 0.25 mg by mouth Thursday, Thursday, Thursday - Colace 100 mg by mouth twice a day - iron tablets 324 mg by mouth every other day - gabapentin 300 mg nightly - insulin Levemir 40 units nightly - insulin sliding scale - probiotic - magnesium 400 mg by mouth every Thursday - Singulair 10 mg by mouth daily - morphine as needed for pain IV - Nystatin powder topical - 14 mEq of potassium chloride was also ordered. - warfarin has been on hold because of high INR. ASSESSMENT: 69-year-old female with past medical history of chronic kidney disease stage IV, morbid obesity, diabetes mellitus type 2, hypertension, heart failure with preserved ejection fraction, admitted this time with sialoadenitis status post stone extraction. Nephrology service following the patient for acute renal failure superimposed on chronic kidney disease. PLAN: 1. Acute kidney injury superimposed on chronic kidney disease stage IV: Patient's baseline creatinine is 2.5. Patient is in acute renal failure at this time. I have ordered urinalysis with urine electrolytes. However, clinically the patient does not look dehydrated. She is in positive fluid balance for the last 4-5 days. Instead of giving her fluids, I am actually going to start her on Lasix. The patient's BNP was elevated on admission as well. Continue to monitor intake and output. If the patient has difficulty with urination, she can get the Cordon catheter placement. No urgent need of hemodialysis at this time. 2. Anemia and chronic kidney disease: The patient's hemoglobin has dropped to 7.5. Some of that might be dilutional. Iron levels are adequate. Continue oral iron. She is going to get 1 unit of packed red blood cells (PRBC) transfusion. I am going to give her a dose of Aranesp as well. 3. Chronic diastolic congestive heart failure: The patient was getting IV fluids. She is in positive fluid balance. Her diuretics on hold. I am going to restart the patient on Lasix 40 mg IV twice a day. Continue the fluid restriction. 4. Acute sialoadenitis status post incision and drainage and stone extraction. The patient continues to be on clindamycin 600 mg IV every 6 hours. Pain is optimized white cell count is improving. Rest of the management is as per primary team and ENT. 5. Hypertension with hypertensive heart disease. Continue current dose of Coreg 12.5 mg by mouth twice a day. 6. Atrial fibrillation: Heart rate is controlled with Coreg and digoxin 0.25 mcg by mouth Thursday, Thursday, Thursday. Anticoagulation is on hold because of supratherapeutic INR. 7. Diabetes mellitus type 2. Continue insulin Levemir and insulin sliding scale. Avoid use of metformin at this time. 8. Hypokalemia: The patient was already given potassium chloride 40 mEq in the morning and another 20 mEq about an hour later. 9. Normal anion gap metabolic acidosis: I have ordered the urine electrolytes and urine anion gap to be done but most likely it is because of acute kidney injury superimposed on chronic kidney disease. She was getting IV bicarbonate, which has been stopped now. If bicarb level does not improve by tomorrow morning. I would start the patient on oral bicarbonate. Thank you for involving me in the care of this patient. I shall be happy to follow the patient along with you tomorrow morning. OSCAR
[2019-06-01 14:00] VITALS: BP 111/53
[2019-06-01] MEDS: DARBEPOETIN 300 MCG/0.6 ML *NON-DIALYSIS* SYRINGE (J0881) SC SCH (14:18)
[2019-06-01] MEDS ORDERED: WARFARIN SOD 2.5 MG TAB PO SCH (17:00)
[2019-06-01] MEDS: LEVEMIR (INSULIN DETEMIR) 1 UNITS/0.01ML SC SCH (21:00)
[2019-06-01] MEDS: ATORVASTATIN 20 MG TAB PO SCH (21:29)
[2019-06-01] MEDS: GABAPENTIN 300 MG CAP PO SCH (21:29)
[2019-06-01] MEDS: LATANOPROST 0.005% OPHTH SOLN 2.5 ML OU SCH (21:30)
[2019-06-01 22:00] VITALS: BP 113/50
[2019-06-02] MEDS: CLINDAMYCIN 600 MG in IV 1 EA IV SCH ×4 (00:25→17:07)
[2019-06-02 06:00] VITALS: BP 112/51
[2019-06-02 06:36] LABS: HEMATOCRIT 28.3 % (36.0-47.0); HEMOGLOBIN 9.1 g/dl (12.0-15.5); MEAN CORPUSCULAR HEMOGLOBIN 30.7 pg (27.0-33.0); MEAN CORPUSCULAR HGB CONC 32.2 g/dl (32.0-36.5); MEAN CORPUSCULAR VOLUME 95.6 fl (80.0-96.0); PLATELET COUNT, AUTOMATED 200 10^3/uL (150-450); RED BLOOD COUNT 2.96 10^6/uL (4.00-5.40); WHITE BLOOD COUNT 11.9 10^3/uL (4.0-10.0)
[2019-06-02 06:48] LABS: INR 2.48; PROTHROMBIN TIME 26.7 SECONDS (11.8-14.0)
[2019-06-02 07:05] LABS: ALBUMIN 2.5 GM/DL (3.2-5.2); CALCIUM LEVEL 7.7 MG/DL (8.8-10.2); CREATININE FOR GFR 3.52 MG/DL (0.55-1.30); GLOMERULAR FILTRATION RATE 13.7 (>45); PHOSPHORUS LEVEL 5.7 MG/DL (2.5-4.9); POTASSIUM SERUM 3.9 MEQ/L (3.5-5.1)
[2019-06-02] MEDS: FUROSEMIDE 40 MG/4 ML VIAL (J1940) IV SCH ×2 (08:29→17:06)
[2019-06-02] MEDS: CETIRIZINE (ZyrTEC) 10 MG TAB PO SCH (08:30)
[2019-06-02] MEDS: HumaLOG INSULIN (NovoLOG) PER UNIT SC SCH ×4 (08:30→21:00)
[2019-06-02] MEDS: LACTOBACILLUS ACIDOPHILUS CAP (BACID) PO SCH ×3 (08:30→17:06)
[2019-06-02] MEDS: MONTELUKAST 10 MG TAB PO SCH (08:30)
[2019-06-02] MEDS: DOCUSATE SODIUM 100 MG CAP PO SCH ×3 (08:30→21:00)
[2019-06-02] MEDS: MAGNESIUM OXIDE 400 MG TAB (MAG-OX) PO SCH (08:31)
[2019-06-02] MEDS: FERROUS GLUCONATE 324 MG TAB PO SCH (08:31)
[2019-06-02] MEDS: CARVedilol 12.5 MG TAB PO SCH (08:32)
[2019-06-02] MEDS: NYSTATIN 100,000 UNITS/GM TOPICAL PWD 15 GM TOP SCH ×2 (08:33→21:39)
[2019-06-02] MEDS: FLUTICASONE PROP 0.05% NASAL SPRAY 16 GM (FLONASE) SCH (08:34)
[2019-06-02 09:41] LABS: DIGOXIN LEVEL 0.8 NG/ML (0.5-2.0)
--- NOTE | 2019-06-02 09:42 | IPNPDOC ---
Subjective Date Seen The patient was seen on 06/02/19. Subjective Chief Complaint/HPI Patient resting comfortably as I entered the room. at bedside. She is feeling better, still some generalized weakness Constitutional: Denies: Chills, Fever Pulmonary: Denies: Dyspnea, Cough Cardiovascular: Reports: Edema; Denies: Chest Pain, Palpitations Gastrointestinal: Denies: Nausea, Vomiting, Abdominal Pain Psych: Reports: Mood Normal Objective Physical Examination General Exam: Positive: Alert, No Acute Distress ENT Exam: Positive: Mucous membr. moist/pink Neck Exam: Positive: Supple; Negative: JVD Chest Exam: Positive: Clear to auscultation, Normal air movement; Negative: Rales, Rhonchi, Wheezing Heart Exam: Positive: Rate Normal, Irregular Rhythm, Murmurs Abdomen Exam: Positive: Normal bowel sounds Extremity Exam: Positive: Edema (trace); Negative: Clubbing Skin Exam: Negative: Rash Psych Exam: Positive: Mood NL Assessment /Plan Problems (1) Sialadenitis Status: Acute Problem Specific Plan: Consult Specialist Problem Text: 06/02/19: Post I and D Warthins duct and floor of mouth sepsis. She remains Afebrile today. Per ENT continue IV ABX for 48 hours while she is being medically stabilized and then consider 2 weeks of Outpatient oral Cleocin. Today will be 48 hours. D/C tomorrow 06/01/19: S/P stone extraction/suction. Patient doing much better. She is kari erating a soft diet. Day # 4 of clindamycin. I will discuss with attending discontinuation date of abx 05/31: patient to go to ENT office for attempt to remove stone from submandibular salivary gland and facilitate drainage this am. Hopefully this will improve pain 05/30/19: Pain persists. ENT was consulted. Dr. Brasher recommended to continue with abx, sialogogues and hydration, massage and heat. We may want to consider repeat study as patient is unable to eat or drink and pain is worse. Day #2 of Clindamycin (2) Acute on chronic kidney failure Status: Acute Problem Text: 06/02/19: Kidney function continues to trend down. Nephrology following. Lasix was restarted yesterday. Urine results pending 06/01/19: GFR down to 14.1, Cre 3.45. Baseline Cre ~2.5, Baseline GFR ~25. Nephrology consulted (3) Anemia Status: Chronic Problem Text: 06/02/19: S/P 1 unit PRBC. Nephrology ordered dose of Aranesp 06/01/19: Hgb 7.5. Baseline ~8-10. Transfuse 1 unit PRBC, consent signed (4) CHF (congestive heart failure) Status: Chronic Response to Treatment: Stable Problem Text: 06/02/19: Trace edema noted. Lasix restarted yesterday. Fluid restriction. EHCO scheduled for today 06/01/19: Looks well compensated today. Diuretics remain on hold. She has good oral intake. We will d/c IVF. We will continue to monitor 05/31: BUN/Creatinine higher. Lying supine w/o dyspnea. Looks dry. Will increase IV fluid rate to 100/hour until she can resume po intake. 05/30/19: Appears well compensated on exam. She remains on her diuretics. She is receiving gentle hydration with D5/NS. We will monitor closely> Actually she looks a little dry with reduced skin turgor, no edema and increasing BUN/Creat. Will stop diuretics for now. (5) Diabetes mellitus with stage 4 chronic kidney disease GFR 15-29 Status: Chronic Response to Treatment: Stable Problem Text: 05/30/19: Patient is on D5/NS at 75/hr. Patient has been unable to eat or drink d/t mouth pain. BG this morning 139. Insulin was held d/t patient poor oral intake. We do want her to go hypoglycemic. Renal function appears fairly stable. Baseline Cre ~2.40-2.70, GFR ~20. We will continue to monitor (6) Atrial fibrillation Status: Chronic Response to Treatment: Stable Problem Text: 06/02/19: INR 2.48. We will resume her Coumadin 06/01/19: Rate controlled. INR 3.5. Coumadin remains on hold 05/30/19: Rate controlled. Warfarin on hold, INR 3.77 this morning. We will continue to monitor (7) Hypertension Status: Chronic Response to Treatment: Stable Problem Text: 05/30/19: Pressures stable Plan/VTE VTE Prophylaxis Ordered?: Yes (Warfarin ) VS, I&O, 24H, Fishbone Vital Signs/I&O Vital Signs Date Time Temp Pulse Resp B/P (MAP) Pulse Ox O2 Delivery O2 Flow Rate FiO2 06/02/19 08:32 68 110/52 06/02/19 06:00 97.0 20 96 05/28/19 13:45 Room Air I&O- Last 24 Hours up to 6 AM 06/02/19 05:59 Intake Total 1592 ml Output Total 200 ml Balance 1392 ml Laboratory Data 24H LABS Laboratory Tests 2 06/01/19 11:29: Bedside Glucose (Misc Panel) 150H 06/01/19 16:23: Bedside Glucose (Misc Panel) 147H 06/01/19 20:53: Bedside Glucose (Misc Panel) 150H 06/02/19 06:15: Nucleated Red Blood Cells % (auto) 0.2H, Prothrombin Time 26.7H, Prothromb Time International Ratio 2.48, Blood Urea Nitrogen 75H, Creatinine 3.52H, Sodium Level 142, Potassium Level 3.9#, Chloride Level 111H, Carbon Dioxide Level 18L, Anion Gap 13, Glomerular Filtration Rate 13.7L, Calcium Level 7.7L, Phosphorus Level 5.7H, Albumin 2.5L CBC/BMP Laboratory Tests 06/02/19 06:15 Red Blood Count 2.96 L, Mean Corpuscular Volume 95.6, Mean Corpuscular Hemoglobin 30.7, Mean Corpuscular Hemoglobin Concent 32.2, Red Cell Distribution Width 17.0 H, Anion Gap 13 DAXA ARCOSP Jun 02, 2019 09:42
[2019-06-02 10:00] VITALS: BP 118/65
[2019-06-02] MEDS: ACETAMINOPHEN 500 MG TAB PO PRN (10:56)
[2019-06-02 11:30] LABS: APPEARANCE, URINE CLEAR (CLEAR); BACTERIA, URINE AUTO NEGATIVE (NEGATIVE); BILIRUBIN, URINE AUTO NEGATIVE (NEGATIVE); BLOOD, URINE BLOOD NEGATIVE (NEGATIVE); COLOR, URINE YELLOW (YELLOW); GLUCOSE, URINE (UA) AUTO 1+ mg/dL (NEGATIVE); KETONE, URINE AUTO NEGATIVE (NEGATIVE); LEUKOCYTE ESTERASE, URINE AUTO NEGATIVE (NEGATIVE); MUCUS, URINE SMALL (NEGATIVE); NITRITE, URINE AUTO NEGATIVE (NEGATIVE); PROTEIN, URINE AUTO 2+ mg/dL (NEGATIVE); RBC, URINE AUTO 0 /HPF (0-3); SPECIFIC GRAVITY URINE AUTO 1.011 (1.002-1.035); SQUAMOUS EPITHELIAL CELL UR AU 0 /HPF (0-6); UROBILINOGEN, URINE AUTO 0.2 mg/dL (0.0-2.0); WBC, URINE AUTO 0 /HPF (0-3)
--- NOTE | 2019-06-02 13:08 | IPN ---
DATE OF SERVICE: 06/02/2019 SUBJECTIVE: The patient was seen and examined at the bedside today morning. Last 24-hour events were noted. The patient was having difficulty with urination. 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 There is no significant improvement in the renal function today as compared with yesterday. I would see of placement of Cordon catheter helps improve the renal function. OBJECTIVE: Vital Signs: Temperature is 97.6 degrees Fahrenheit. Blood pressure 118/65. Pulse is 80. Respiratory rate of 18. Saturating 98% on room air. Intake and Output: Urine output recorded yesterday is only 200 mL. Urine output so far today after placement of Cordon catheter is 650 mL. Weight in the bed scale is not available. PHYSICAL EXAMINATION: General: The patient is awake, alert, oriented times three, morbidly obese, laying in bed in no apparent distress. Head and Neck Exam: Extraocular muscles intact. Pupils equally round and reactive to light. Mucous membranes are moist. Neck is supple. There is mildly elevated jugular venous distention (JVD). Cardiovascular: S1 and S2, regular rate. 1+ edema of the bilateral lower extremities. Respiratory: Chest is clear to auscultation in the upper lung zones, mild crepitations to be deep inspiration in the lower lung zones. Abdomen is soft, obese. Positive bowel sounds. Mildly tender in the flanks. Genitourinary: She has an indwelling Cordon catheter. Urine in the bag is clear. Musculoskeletal: No clubbing or cyanosis. Pulses are 2+. FRONT DESK ASSOCIATE: No focal deficit. Power is 5/5 in bilateral upper extremities. LAB REVIEW: CBC showed a WBC of 11.9, hemoglobin 9.1 and platelets of 200. Urinalysis done today showed 2+ protein, no blood, no leukocyte esterase or nitrite. BMP done today morning showed sodium 142, potassium 3.9, chloride 111, bicarb 18, BUN 75, creatinine 3.5, calcium 7.7, phosphorus 5.7, albumin 2.5. CURRENT INPATIENT MEDICATIONS: The patient's medications were all reviewed by me. She continues to be on Lasix 40 mg IV twice a day. Warfarin dose has been decreased to 2.5 mg daily. No other change in the medications today as compared with yesterday. ASSESSMENT/PLAN: 1. Acute kidney injury superimposed on chronic kidney disease stage IV. Patient's baseline creatinine is 2.5, creatinine was not improving. She got the Cordon catheter placed today and she was found to be in urinary retention. Continue the Cordon catheter. Continue the diuretics at this time. 2. Anemia and chronic kidney disease. The patient is status post 1 unit PRBC transfusion. She got a dose of Aranesp as well. Hemoglobin level has improved to 9.1. 3. Chronic diastolic congestive heart failure. As mentioned above, the patient is currently getting Lasix 40 mg IV twice a day. 4. Hypertension with hypertensive heart disease. Continue current dose of Coreg 12.5 mg by mouth twice a day with holding parameters. If blood pressure stays low, than I would decrease the dose to 6.25 mg by mouth twice a day. 5. Atrial fibrillation. She is on digoxin and Coreg. Digoxin levels are adequate. INR is therapeutic now. She is on Coumadin for anticoagulation. 6. Normal anion gap metabolic acidosis. Urine electrolytes levels are pending. Bicarb level is slightly up to 18 today. I would wait for improvement of the renal function. No need of oral bicarbonate at this time.
[2019-06-02 14:00] VITALS: BP 116/51
[2019-06-02] MEDS: WARFARIN SOD 2.5 MG TAB PO SCH (17:06)
[2019-06-02 18:00] VITALS: BP 120/56
[2019-06-02] MEDS: GABAPENTIN 300 MG CAP PO SCH (21:38)
[2019-06-02] MEDS: CARVedilol 6.25 MG TAB PO SCH (21:38)
[2019-06-02] MEDS: ATORVASTATIN 20 MG TAB PO SCH (21:38)
[2019-06-02] MEDS: LATANOPROST 0.005% OPHTH SOLN 2.5 ML OU SCH (21:39)
[2019-06-02] MEDS: LEVEMIR (INSULIN DETEMIR) 1 UNITS/0.01ML SC SCH (21:39)
[2019-06-02 22:00] VITALS: BP 136/60
[2019-06-03] MEDS: CLINDAMYCIN 600 MG in IV 1 EA IV SCH ×2 (00:43→05:53)
[2019-06-03 02:00] VITALS: BP 125/57
[2019-06-03 06:00] VITALS: BP 124/58
[2019-06-03 06:11] LABS: HEMATOCRIT 27.7 % (36.0-47.0); HEMOGLOBIN 8.8 g/dl (12.0-15.5); MEAN CORPUSCULAR HGB CONC 31.8 g/dl (32.0-36.5); MEAN CORPUSCULAR VOLUME 97.5 fl (80.0-96.0); PLATELET COUNT, AUTOMATED 208 10^3/uL (150-450); RED BLOOD COUNT 2.84 10^6/uL (4.00-5.40); WHITE BLOOD COUNT 10.3 10^3/uL (4.0-10.0)
[2019-06-03 06:22] LABS: INR 1.68; PROTHROMBIN TIME 19.5 SECONDS (11.8-14.0)
[2019-06-03 06:32] LABS: CALCIUM LEVEL 7.8 MG/DL (8.8-10.2); CREATININE FOR GFR 3.46 MG/DL (0.55-1.30); POTASSIUM SERUM 3.7 MEQ/L (3.5-5.1)
[2019-06-03] MEDS: HumaLOG INSULIN (NovoLOG) PER UNIT SC SCH ×4 (07:31→21:00)
[2019-06-03] MEDS: CETIRIZINE (ZyrTEC) 10 MG TAB PO SCH (07:31)
[2019-06-03] MEDS: LACTOBACILLUS ACIDOPHILUS CAP (BACID) PO SCH ×3 (07:31→17:25)
[2019-06-03] MEDS: CARVedilol 6.25 MG TAB PO SCH ×2 (07:32→22:05)
[2019-06-03] MEDS: MONTELUKAST 10 MG TAB PO SCH (07:32)
[2019-06-03] MEDS: DIGOXIN 0.25 MG TAB PO SCH (07:33)
[2019-06-03] MEDS: NYSTATIN 100,000 UNITS/GM TOPICAL PWD 15 GM TOP SCH ×2 (07:33→22:07)
[2019-06-03] MEDS: DOCUSATE SODIUM 100 MG CAP PO SCH ×2 (07:33→22:06)
[2019-06-03] MEDS: FLUTICASONE PROP 0.05% NASAL SPRAY 16 GM (FLONASE) SCH (07:34)
[2019-06-03] MEDS ORDERED: BICITRA 30ML SOLN UDC PO SCH (09:00)
--- NOTE | 2019-06-03 10:20 | ECHO ---
DATE OF STUDY: 06/01/2019 REFERRING PHYSICIAN: Dr. Reynoso INDICATION: Heart failure unspecified. HEIGHT: 155 cm. WEIGHT: 113 kg. 2-D MEASUREMENTS: Left atrium: 4.5 cm Ventricular septum: 1.20 cm Posterior wall: 1.26 cm Left ventricle diastole: 5.1 cm Aortic annulus: 1.8 cm Aortic root: 2.9 cm Inferior vena cava: 2.2 cm with greater than 50% respiratory variation Central venous pressure estimated to be 10 mmHg DOPPLER MEASUREMENTS: Aortic valve velocity: 337 cm/sec Aortic VTI: 80.3 cm Peak aortic valve gradient: 45 mmHg Mean aortic valve gradient: 26 mmHg Moderate aortic stenosis Dimensionless index: 0.28 Mild aortic regurgitation LVOT velocity: 112 cm/sec LVOT VTI: 22.3 cm Mild mitral regurgitation Mitral E velocity: 87.2 cm/sec Mitral A velocity: 113 cm/sec Mitral E deceleration time: 313 ms Very mild tricuspid regurgitation Pulmonary artery systolic pressure: 35 mmHg MITRAL ANNULAR TISSUE DOPPLER: E prime septal: 4.7 cm/sec E prime lateral: 5.2 cm/sec DESCRIPTION: The rhythm was AV sequential paced rhythm. This was a moderately technically difficult echocardiogram. This was a 2-D, M-mode, color flow Doppler and pulse wave Doppler examination and included mitral annular tissue Doppler. CONCLUSIONS: 1. Degenerative, calcific aortic valve disease with severe calcification of a 3-cuspid aortic valve and moderate reduction in aortic cusp mobility. Moderate aortic stenosis as judged by the dimensionless index and the peak transaortic velocity. Mild aortic regurgitation. 2. Mild concentric left ventricle hypertrophy. Normal regional LV wall motion and wall thickening. Normal LV systolic function. LVEF 60% by visual estimate. Grade 1 LV diastolic dysfunction (impaired relaxation and filling pattern). 3. Moderate sized fairly localized pericardial effusion over the inferolateral region of the basal portion of the left ventricle measuring maximum 2.2 cm. No cardiac chamber collapse. No significant respiratory variation of intracardiac velocities. 4. Moderate left atrial dilatation. 5. Suggestive of mild elevation of pulmonary artery systolic pressure. 6. Mild mitral annular calcification. Mild mitral regurgitation. 7. Presence of endocardial cardiac rhythm management leads identified in the right atrium and right ventricle. 8. Moderately technically difficult echocardiogram Doppler.
--- NOTE | 2019-06-03 10:31 | IPNPDOC ---
Subjective Date Seen The patient was seen on 06/03/19. Subjective Chief Complaint/HPI Patient sitting in chair with at her side as I entered the room. She reports to be feeling a little better Constitutional: Denies: Chills Pulmonary: Denies: Dyspnea, Cough Cardiovascular: Denies: Chest Pain, Palpitations, Edema Gastrointestinal: Denies: Nausea, Vomiting Psych: Reports: Mood Normal Objective Physical Examination General Exam: Positive: Alert, Cooperative, No Acute Distress ENT Exam: Positive: Mucous membr. moist/pink Neck Exam: Positive: Supple; Negative: JVD Chest Exam: Positive: Clear to auscultation, Normal air movement; Negative: Rales, Rhonchi, Wheezing Heart Exam: Positive: Rate Normal, Irregular Rhythm, Murmurs Abdomen Exam: Positive: Normal bowel sounds, Soft; Negative: Tenderness Extremity Exam: Positive: Edema (trace bilateral lower extremities ); Negative: Clubbing Skin Exam: Negative: Rash Psych Exam: Positive: Mood NL Assessment /Plan Problems (1) Sialadenitis Status: Acute Problem Specific Plan: Consult Specialist Problem Text: 06/03/19: D/C IV Clindamycin today. Change to oral Cleocin for a total of 2 weeks per ENT recommendation 06/02/19: Post I and D Warthins duct and floor of mouth sepsis. She remains Afebrile today. Per ENT continue IV ABX for 48 hours while she is being medically stabilized and then consider 2 weeks of Outpatient oral Cleocin. Today will be 48 hours. D/C tomorrow 06/01/19: S/P stone extraction/suction. Patient doing much better. She is tolerating a soft diet. Day # 4 of clindamycin. I will discuss with attending discontinuation date of abx 05/31: patient to go to ENT office for attempt to remove stone from submandibular salivary gland and facilitate drainage this am. Hopefully this will improve pain 05/30/19: Pain persists. ENT was consulted. Dr. Brasher recommended to continue with abx, sialogogues and hydration, massage and heat. We may want to consider repeat study as patient is unable to eat or drink and pain is worse. Day #2 of Clindamycin (2) Acute on chronic kidney failure Status: Acute Problem Text: 06/03/19: Renal function stable at present. Cordon catheter was placed as she was found to be in urinary retention. 06/02/19: Kidney function continues to trend down. Nephrology following. Lasix was restarted yesterday. Urine results pending 06/01/19: GFR down to 14.1, Cre 3.45. Baseline Cre ~2.5, Baseline GFR ~25. Ne phrology consulted (3) Anemia Status: Chronic Problem Text: 06/03/19: Hgb 8.8 today. We will continue to monitor 06/02/19: S/P 1 unit PRBC. Nephrology ordered dose of Aranesp 06/01/19: Hgb 7.5. Baseline ~8-10. Transfuse 1 unit PRBC, consent signed (4) CHF (congestive heart failure) Status: Chronic Response to Treatment: Stable Problem Text: 06/03/19: IV Lasix yesterday. ECHO results pending. Fluid restriction 06/02/19: Trace edema noted. Lasix restarted yesterday. Fluid restriction. EHCO scheduled for today 06/01/19: Looks well compensated today. Diuretics remain on hold. She has good oral intake. We will d/c IVF. We will continue to monitor 05/31: BUN/Creatinine higher. Lying supine w/o dyspnea. Looks dry. Will increase IV fluid rate to 100/hour until she can resume po intake. 05/30/19: Appears well compensated on exam. She remains on her diuretics. She is receiving gentle hydration with D5/NS. We will monitor closely> Actually she looks a little dry with reduced skin turgor, no edema and increasing BUN/Creat. Will stop diuretics for now. (5) Diabetes mellitus with stage 4 chronic kidney disease GFR 15-29 Status: Chronic Response to Treatment: Stable Problem Text: 05/30/19: Patient is on D5/NS at 75/hr. Patient has been unable to eat or drink d/t mouth pain. BG this morning 139. Insulin was held d/t patient poor oral intake. We do want her to go hypoglycemic. Renal function appears fairly stable. Baseline Cre ~2.40-2.70, GFR ~20. We will continue to monitor (6) Atrial fibrillation Status: Chronic Response to Treatment: Stable Problem Text: 06/03/19: INR subtherapeutic 1.68. Will give her an additional 2.5 mg of Coumadin tonight (total 5 mg). Check INR tomorrow 06/02/19: INR 2.48. We will resume her Coumadin 06/01/19: Rate controlled. INR 3.5. Coumadin remains on hold 05/30/19: Rate controlled. Warfarin on hold, INR 3.77 this morning. We will continue to monitor (7) Hypertension Status: Chronic Response to Treatment: Stable Problem Text: 05/30/19: Pressures stable Plan/VTE VTE Prophylaxis Ordered?: Yes (Warfarin ) VS, I&O, 24H, Fishbone Vital Signs/I&O Vital Signs Date Time Temp Pulse Resp B/P (MAP) Pulse Ox O2 Delivery O2 Flow Rate FiO2 06/03/19 07:33 68 06/03/19 07:32 136/59 06/03/19 06:00 97.8 18 93 05/28/19 13:45 Room Air I&O- Last 24 Hours up to 6 AM 06/03/19 06:00 Intake Total 2050 ml Output Total 2100 ml Balance -50 ml Laboratory Data 24H LABS Laboratory Tests 2 06/02/19 11:11: Urine Appearance CLEAR, Urine Color YELLOW, Urine pH 5.0, Urine Specific [place] 1.011, Urine Protein 2+H, Urine Glucose (UA) 1+H, Urine Ketones NEGATIVE, Urine Urobilinogen 0.2, Urine Bilirubin NEGATIVE, Urine Leukocyte Esterase NEGATIVE, Urine Blood NEGATIVE, Urine Nitrite NEGATIVE, Urine WBC (Auto) 0, Urine RBC (Auto) 0, Urine Hyaline Casts (Auto) 0, Urine Bacteria (Auto) NEGATIVE, Urine Squamous Epithelial Cells 0, Urine Mucus (Auto) SMALL, Urine Sperm (Auto) 06/02/19 11:22: Bedside Glucose (Misc Panel) 144H 06/02/19 16:49: Bedside Glucose (Misc Panel) 135H 06/02/19 20:43: Bedside Glucose (Misc Panel) 170H 06/03/19 05:22: Nucleated Red Blood Cells % (auto) 0.3H, Prothrombin Time 19.5H, Prothromb Time International Ratio 1.68, Anion Gap 14, Glomerular Filtration Rate 14.0L, Blood Urea Nitrogen 69H, Creatinine 3.46H, Sodium Level 142, Potassium Level 3.7, Chloride Level 111H, Carbon Dioxide Level 17L, Calcium Level 7.8L, UU-Qlh-T-Type Natriuretic Peptide 3173H CBC/BMP Laboratory Tests 06/03/19 05:22 Red Blood Count 2.84 L, Mean Corpuscular Volume 97.5 H, Mean Corpuscular Hemoglobin 31.0, Mean Corpuscular Hemoglobin Concent 31.8 L, Red Cell Distribution Width 16.9 H, Calcium Level 7.8 L DAXA ARCOS Jun 03, 2019 10:31
[2019-06-03 14:00] VITALS: BP 137/57
[2019-06-03] MEDS: SODIUM BICARBONATE 325 MG TAB PO SCH ×2 (14:25→22:04)
[2019-06-03] MEDS: CLINDAMYCIN 150 MG CAP PO SCH ×2 (14:28→22:05)
[2019-06-03] MEDS: TAMSULOSIN 0.4 MG CAP PO SCH (14:28)
[2019-06-03] MEDS ORDERED: WARFARIN SOD 5 MG TAB PO ONE (17:00)
[2019-06-03 18:00] VITALS: BP 153/66
[2019-06-03] MEDS: ACETAMINOPHEN 500 MG TAB PO PRN (18:03)
[2019-06-03 22:00] VITALS: BP 122/71
[2019-06-03] MEDS: GABAPENTIN 300 MG CAP PO SCH (22:05)
[2019-06-03] MEDS: ATORVASTATIN 20 MG TAB PO SCH (22:05)
[2019-06-03] MEDS: LEVEMIR (INSULIN DETEMIR) 1 UNITS/0.01ML SC SCH (22:06)
[2019-06-03] MEDS: LATANOPROST 0.005% OPHTH SOLN 2.5 ML OU SCH (22:07)
[2019-06-03] MEDS: SODIUM CHLORIDE NASAL 0.65% SPRAY BTL (OCEAN) PRN (22:18)
[2019-06-04 02:00] VITALS: BP 120/68
[2019-06-04 06:00] VITALS: BP 138/76
[2019-06-04] MEDS: CLINDAMYCIN 150 MG CAP PO SCH ×3 (06:01→21:13)
[2019-06-04 06:19] LABS: HEMATOCRIT 26.9 % (36.0-47.0); HEMOGLOBIN 8.7 g/dl (12.0-15.5); MEAN CORPUSCULAR HEMOGLOBIN 31.4 pg (27.0-33.0); MEAN CORPUSCULAR HGB CONC 32.3 g/dl (32.0-36.5); MEAN CORPUSCULAR VOLUME 97.1 fl (80.0-96.0); PLATELET COUNT, AUTOMATED 199 10^3/uL (150-450); RED BLOOD COUNT 2.77 10^6/uL (4.00-5.40); WHITE BLOOD COUNT 11.8 10^3/uL (4.0-10.0)
[2019-06-04 06:37] LABS: INR 1.63; PROTHROMBIN TIME 19.1 SECONDS (11.8-14.0)
[2019-06-04 06:42] LABS: CREATININE FOR GFR 3.03 MG/DL (0.55-1.30); GLOMERULAR FILTRATION RATE 16.3 (>45); POTASSIUM SERUM 3.5 MEQ/L (3.5-5.1)
[2019-06-04] MEDS: LACTOBACILLUS ACIDOPHILUS CAP (BACID) PO SCH ×3 (07:51→16:57)
[2019-06-04] MEDS: CETIRIZINE (ZyrTEC) 10 MG TAB PO SCH (07:51)
[2019-06-04] MEDS: MAGNESIUM OXIDE 400 MG TAB (MAG-OX) PO SCH (07:51)
[2019-06-04] MEDS: HumaLOG INSULIN (NovoLOG) PER UNIT SC SCH ×4 (07:51→21:00)
[2019-06-04] MEDS: CARVedilol 6.25 MG TAB PO SCH ×2 (07:51→21:14)
[2019-06-04] MEDS: TAMSULOSIN 0.4 MG CAP PO SCH (07:51)
[2019-06-04] MEDS: NYSTATIN 100,000 UNITS/GM TOPICAL PWD 15 GM TOP SCH ×2 (07:52→21:13)
[2019-06-04] MEDS: FLUTICASONE PROP 0.05% NASAL SPRAY 16 GM (FLONASE) SCH (07:52)
[2019-06-04] MEDS: FERROUS GLUCONATE 324 MG TAB PO SCH (07:52)
[2019-06-04] MEDS: SODIUM BICARBONATE 325 MG TAB PO SCH ×2 (07:52→21:13)
[2019-06-04] MEDS: DOCUSATE SODIUM 100 MG CAP PO SCH ×2 (07:52→21:14)
[2019-06-04] MEDS: MONTELUKAST 10 MG TAB PO SCH (07:52)
--- NOTE | 2019-06-04 09:07 | IPN ---
DATE OF SERVICE: 06/03/2019 SUBJECTIVE: The patient was seen and examined at the bedside today morning. She was actually sitting in the sofa today. She continues to have Cordon catheter. Urine output is improving. Her diuretics were stopped yesterday. There is no change in the renal function today as compared with yesterday. Creatinine was 3.5 yesterday; it came down to 3.4 today. The patient was started on oral Bicitra for metabolic acidosis. However, she does not like the taste, and she wants to switch to some other medication. The patient reports that she is feeling much more awake and alert today as compared with yesterday. OBJECTIVE: Vital signs: Temperature is 97.8 degrees Fahrenheit, blood pressure 136/59, pulse is 68, respiratory rate of 18, saturating 93% on room air. Intake and output: Urine output recorded is 2.5 liters yesterday, 575 mL so far today since overnight. Weight in the bed scale is not available. PHYSICAL EXAMINATION: General: The patient is awake, alert, oriented times three, morbidly obese, sitting up in the sofa, no apparent distress. Head and neck examination: Extraocular muscles intact. Pupils equally round and react to light. Mucous membranes are moist. Neck is supple. There is no jugular venous distention (JVD). Cardiovascular: S1, S2, regular rate. Trace edema of the bilateral lower extremities. Respiratory: Chest is clear to auscultation bilaterally. Bilateral equal air entry. No rales or rhonchi. Abdomen: Soft, obese, positive bowel sounds. Mildly tender in the flank. Genitourinary: She has an indwelling Cordon catheter. Musculoskeletal: No clubbing or cyanosis. Pulses are 2+. Central nervous system ([employer]): No focal deficit. Power is 5/5 in bilateral upper extremities. LABORATORY REVIEW: Complete blood count (CBC) showed WBC 10.3, hemoglobin 8.8, platelets are 208. Basic metabolic profile (BMP) showed sodium 142, potassium 3.7, chloride 111, bicarbonate 17, BUN 69, creatinine is 3.4, it was 3.5 yesterday, calcium 7.8, Pro-BNP is 3173. CURRENT INPATIENT MEDICATIONS: The patient's medications were all reviewed by me. Her torsemide was stopped yesterday. She was started on Bicitra, but she does not like the taste. I have started her on sodium bicarbonate 650 mg by mouth twice a day. Coreg was decreased to 6.25 mg by mouth twice a day because of soft blood pressures. ASSESSMENT AND PLAN: 1. Acute kidney injury superimposed on chronic kidney disease stage IV. The patient's baseline creatinine is 2.5. She was in urinary retention. Creatinine now is fluctuating at around 3.4. I have stopped the diuretics as of yesterday. Continue to monitor for improvement of the renal function. No urgent need of hemodialysis. 2. Chronic diastolic congestive heart failure. The patient was having diuresis after placement of the Cordon catheter. Diuretics were stopped yesterday. She will be monitored on a daily basis for need to resume diuretics. 3. Hypertension with hypertensive heart disease. The patient had soft blood pressures. Coreg dose has been decreased to 6.25 mg by mouth twice a day. 4. Atrial fibrillation. Continue Coreg and digoxin. Coumadin dose adjustment as per primary team. 5. Normal anion gap metabolic acidosis. The patient was started on Bicitra, which she did not like. Now she has been switched to sodium bicarbonate 650 mg by mouth twice a day.
[2019-06-04 10:00] VITALS: BP 133/57
[2019-06-04] MEDS ORDERED: POTASSIUM CHLORIDE 10 MEQ SR TABLET PO ONE (11:00)
[2019-06-04] MEDS: SENOKOT S TAB PO SCH (12:16)
[2019-06-04] MEDS: ACETAMINOPHEN 500 MG TAB PO PRN (13:29)
[2019-06-04 14:00] VITALS: BP 140/70
--- NOTE | 2019-06-04 14:23 | IPNPDOC ---
Subjective Date Seen The patient was seen on 06/04/19. Subjective Chief Complaint/HPI The episodes with the tonsil stone seems to be resolved. Unfortunately she is not cleared to be discharged by physical therapy. Her biggest concern today is pain related to a roughly 2 cm fissure under a skin fold on her left hip. She's been crying about this with the nurses. They've given her Tylenol but it did not help enough. I have tried InterDry as well. General: Reports: Normal Appetite Constitutional: Denies: Chills, Fever Skin: Reports: Breakdown (under a secondary skin fold on her left hip) Pulmonary: Denies: Dyspnea, Cough Cardiovascular: Denies: Chest Pain, Palpitations Gastrointestinal: Denies: Nausea, Vomiting Genitourinary: Reports: Retention (her Cordon catheter was pulled this morning and she has not yet urinated); Denies: Dysuria Psych: Reports: Anxiety Objective Physical Examination General Exam: Positive: Alert, Cooperative, Mild Distress (related to the skinfold fissure) Eye Exam: Positive: Conjunctiva & lids normal; Negative: Sclera icteric ENT Exam: Positive: Mucous membr. moist/pink Neck Exam: Positive: Supple; Negative: Lymphadenopathy Chest Exam: Positive: Clear to auscultation, Normal air movement; Negative: Rales, Rhonchi, Wheezing Heart Exam: Positive: Rate Normal, Irregular Rhythm, Murmurs Abdomen Exam: Positive: Normal bowel sounds, Soft; Negative: Tenderness Extremity Exam: Positive: Edema (trace bilateral lower extremities ); Negative: Clubbing Skin Exam: Positive: Breakdown (roughly 2 cm fissure under a secondary skin fold on the left hip) Psych Exam: Positive: Anxiety, Memory Intact, Oriented x 3 Assessment /Plan Problems (1) Acute on chronic kidney failure Status: Acute Problem Text: 06/04/19: Her creatinine is down to 3.03 today. This is certainly an improvement. We'll continue to monitor. 06/03/19: Renal function stable at present. Cordon catheter was placed as she was found to be in urinary retention. 06/02/19: Kidney function continues to trend down. Nephrology following. Lasix was restarted yesterday. Urine results pending 06/01/19: GFR down to 14.1, Cre 3.45. Baseline Cre ~2.5, Baseline GFR ~25. Nephrology consulted (2) Anemia Status: Chronic Problem Text: 06/04/19: Hemoglobin is relatively stable. We'll continue to watch the trend. 06/03/19: Hgb 8.8 today. We will continue to monitor 06/02/19: S/P 1 unit PRBC. Nephrology ordered dose of Aranesp 06/01/19: Hgb 7.5. Baseline ~8-10. Transfuse 1 unit PRBC, consent signed (3) CHF (congestive heart failure) Permanent Comment: 06/01/19: Echocardiogram shows grade 1 diastolic dysfunction Last Edited By: Bryant Arriaag MD on Jun 04, 2019 23:18 Status: Chronic Response to Treatment: Stable Problem Text: 06/04/19: Echo report shows grade 1 diastolic dysfunction as well as abnormalities in most of the valves. Aortic valve seems to be most affected. 06/03/19: IV Lasix yesterday. ECHO results pending. Fluid restriction 06/02/19: Trace edema noted. Lasix restarted yesterday. Fluid restriction. EHCO scheduled for today 06/01/19: Looks well compensated today. Diuretics remain on hold. She has good oral intake. We will d/c IVF. We will continue to monitor 05/31: BUN/Creatinine higher. Lying supine w/o dyspnea. Looks dry. Will increase IV fluid rate to 100/hour until she can resume po intake. 05/30/19: Appears well compensated on exam. She remains on her diuretics. She is receiving gentle hydration with D5/NS. We will monitor closely> Actually she looks a little dry with reduced skin turgor, no edema and increasing BUN/Creat. Will stop diuretics for now. (4) Fissure in skin Status: Acute Response to Treatment: Uncontrolled Discussed With: Nurse, Patient, Family with Pt Consent Problem Specific Plan: Monitor Clinically Problem Text: We worked to reduce moisture in the area. I reluctantly prescribed Tylenol 3 to help with the pain seems regular Tylenol did not help and she can't take nonsteroidals because of her kidney disease. (5) Diabetes mellitus with stage 4 chronic kidney disease GFR 15-29 Status: Chronic Response to Treatment: Stable Problem Text: 05/30/19: Patient is on D5/NS at 75/hr. Patient has been unable to eat or drink d/t mouth pain. BG this morning 139. Insulin was held d/t patient poor oral intake. We do want her to go hypoglycemic. Renal function appears fairly stable. Baseline Cre ~2.40-2.70, GFR ~20. We will continue to monitor (6) Atrial fibrillation Status: Chronic Response to Treatment: Stable Problem Text: 06/04/19: Her INR remains subtherapeutic. It actually dropped a little with the extra Coumadin. I'm not going to adjust the dose tonight to see what the INR is tomorrow. If it continues to trend down, we'll need to increase the dose. 06/03/19: INR subtherapeutic 1.68. Will give her an additional 2.5 mg of Coumadin tonight (total 5 mg). Check INR tomorrow 06/02/19: INR 2.48. We will resume her Coumadin 06/01/19: Rate controlled. INR 3.5. Coumadin remains on hold 05/30/19: Rate controlled. Warfarin on hold, INR 3.77 this morning. We will continue to monitor (7) Hypertension Status: Chronic Response to Treatment: Stable Problem Text: 05/30/19: Pressures stable (8) Sialadenitis Status: Resolved Problem Specific Plan: Consult Specialist Problem Text: 06/03/19: D/C IV Clindamycin today. Change to oral Cleocin for a total of 2 weeks per ENT recommendation 06/02/19: Post I and D Warthins duct and floor of mouth sepsis. She remains Afebrile today. Per ENT continue IV ABX for 48 hours while she is being medically stabilized and then consider 2 weeks of Outpatient oral Cleocin. Today will be 48 hours. D/C tomorrow 06/01/19: S/P stone extraction/suction. Patient doing much better. She is tolerating a soft diet. Day # 4 of clindamycin. I will discuss with attending discontinuation date of abx 05/31: patient to go to ENT office for attempt to remove stone from submandibular salivary gland and facilitate drainage this am. Hopefully this will improve pain 05/30/19: Pain persists. ENT was consulted. Dr. Brasher recommended to continue with abx, sialogogues and hydration, massage and heat. We may want to consider repeat study as patient is unable to eat or drink and pain is worse. Day #2 of Clindamycin (9) Physical deconditioning Status: Chronic Discussed With: Patient, Family with Pt Consent Problem Specific Plan: Monitor Clinically Problem Text: She remains physically gait deconditioned and not safe for home. I anticipate remaining to make her SNF status soon. She will likely need some subacute rehabilitation. Plan/VTE VTE Prophylaxis Ordered?: Yes (Warfarin ) Plan Therapy: PT VS, I&O, 24H, Fishbone Vital Signs/I&O Vital Signs Date Time Temp Pulse Resp B/P (MAP) Pulse Ox O2 Delivery O2 Flow Rate FiO2 06/04/19 10:00 97.6 70 18 133/57 (82) 97 I&O- Last 24 Hours up to 6 AM 06/04/19 06:00 Intake Total 1100 ml Output Total 1575 ml Balance -475 ml Laboratory Data 24H LABS Laboratory Tests 2 06/03/19 16:59: Bedside Glucose (Misc Panel) 200H 06/03/19 20:50: Bedside Glucose (Misc Panel) 181H 06/04/19 05:48: Nucleated Red Blood Cells % (auto) 0.4H, Prothrombin Time 19.1H, Prothromb Time International Ratio 1.63, Anion Gap 12, Glomerular Filtration Rate 16.3L, Blood Urea Nitrogen 69H, Creatinine 3.03H, Sodium Level 144, Potassium Level 3.5, Chloride Level 114H, Carbon Dioxide Level 18L, Calcium Level 8.0L 06/04/19 11:39: Bedside Glucose (Misc Panel) 171H CBC/BMP Laboratory Tests 06/04/19 05:48 Red Blood Count 2.77 L, Mean Corpuscular Volume 97.1 H, Mean Corpuscular Hemoglobin 31.4, Mean Corpuscular Hemoglobin Concent 32.3, Red Cell Distribution Width 16.8 H, Calcium Level 8.0 L Bryant Arriaga MD Jun 04, 2019 14:23
[2019-06-04] MEDS: ACETAMINOPH W/CODEINE #3 TAB UD PO PRN ×3 (14:42→22:55)
[2019-06-04] MEDS: WARFARIN SOD 2.5 MG TAB PO SCH (17:17)
[2019-06-04 18:00] VITALS: BP 140/67
[2019-06-04] MEDS: ATORVASTATIN 20 MG TAB PO SCH (21:13)
[2019-06-04] MEDS: GABAPENTIN 300 MG CAP PO SCH (21:14)
[2019-06-04] MEDS: LEVEMIR (INSULIN DETEMIR) 1 UNITS/0.01ML SC SCH (21:14)
[2019-06-04] MEDS: LATANOPROST 0.005% OPHTH SOLN 2.5 ML OU SCH (21:15)
[2019-06-04 22:00] VITALS: BP 128/65
[2019-06-05] MEDS: ACETAMINOPH W/CODEINE #3 TAB UD PO PRN ×5 (03:41→20:49)
[2019-06-05] MEDS: CLINDAMYCIN 150 MG CAP PO SCH ×3 (05:21→20:49)
[2019-06-05] MEDS: ACETAMINOPHEN 500 MG TAB PO PRN ×2 (05:26→19:44)
[2019-06-05 06:00] VITALS: BP 115/58
[2019-06-05 06:17] LABS: HEMATOCRIT 27.8 % (36.0-47.0); HEMOGLOBIN 8.8 g/dl (12.0-15.5); MEAN CORPUSCULAR HEMOGLOBIN 30.2 pg (27.0-33.0); MEAN CORPUSCULAR HGB CONC 31.7 g/dl (32.0-36.5); MEAN CORPUSCULAR VOLUME 95.5 fl (80.0-96.0); PLATELET COUNT, AUTOMATED 213 10^3/uL (150-450); RED BLOOD COUNT 2.91 10^6/uL (4.00-5.40); WHITE BLOOD COUNT 13.3 10^3/uL (4.0-10.0)
[2019-06-05 06:40] LABS: CREATININE FOR GFR 2.86 MG/DL (0.55-1.30); GLOMERULAR FILTRATION RATE 17.5 (>45); PHOSPHORUS LEVEL 4.3 MG/DL (2.5-4.9)
[2019-06-05 06:41] LABS: ALBUMIN 2.4 GM/DL (3.2-5.2); MAGNESIUM LEVEL 2.1 MG/DL (1.8-2.4)
[2019-06-05 07:04] LABS: EOSINOPHILS 4 % (0-3); LYMPHOCYTES 11 % (16-44); METAMYELOCYTES 4 % (0-0); MONOCYTES 3 % (0-5); MYELOCYTES 4 % (0-0); NEUTROPHILS 70 % (28-66); PLATELET ESTIMATE NORMAL (NORMAL)
[2019-06-05 07:05] LABS: ANISOCYTOSIS 1+
--- NOTE | 2019-06-05 07:29 | IPN ---
DATE OF VISIT: 06/04/2019 Mrs. Vargas is seen this morning on her bedside. She is feeling better and reports that she did get up and sit in the chair this morning. She is able to walk to the bathroom with the help of walker. She denies any nausea or vomiting. On physical exam, temperature 97.6 degrees Fahrenheit, heart rate 70 per minute and respiratory rate 18 per minute. Blood pressure 133/57 mmHg and oxygen saturation 97% on room air. Head is atraumatic. Neck is supple and jugular venous distention (JVD) only mildly elevated. Heart sounds are regular and lungs with diminished breath sounds at bases. Abdomen obese, soft and nontender, and bowel sounds are normal. Extremities without any cyanosis or clubbing. Neurologically she is awake, alert and at baseline mentation. Today's labs show WBC count 11.8, hemoglobin 8.7 and hematocrit 26.9. Sodium 144, potassium 3.5, CO2 18, BUN 69 and creatinine 3.0. Glucose 163 and calcium 8.0. PROBLEMS: 1. Acute renal failure superimposed on chronic kidney disease. Some improvement in kidney function is noticed. Last 3 days her creatinine has been essentially unchanged at 3.4-3.5. Today it is encouraging to see her creatinine down to 3.0. Intravenous (IV) fluid has already been stopped. We will continue to monitor her renal function closely. I will hold off on any further diuretic at this point. 2. Metabolic acidosis. Acidosis is slightly improved. She is receiving oral sodium bicarbonate and we will continue with the same. 3. Hypokalemia. Potassium level is 3.5 and she will be given one dose of oral potassium chloride today and her electrolytes will be checked again tomorrow morning. 4. Anemia. Patient is currently receiving Aranesp 300 mcg once a week. Her anemia is stable at this point.
[2019-06-05] MEDS: NYSTATIN 100,000 UNITS/GM TOPICAL PWD 15 GM TOP SCH ×2 (08:07→19:45)
[2019-06-05] MEDS: CETIRIZINE (ZyrTEC) 10 MG TAB PO SCH (08:08)
[2019-06-05] MEDS: DOCUSATE SODIUM 100 MG CAP PO SCH ×2 (08:08→19:44)
[2019-06-05] MEDS: SENOKOT S TAB PO SCH (08:08)
[2019-06-05] MEDS: MONTELUKAST 10 MG TAB PO SCH (08:09)
[2019-06-05] MEDS: LACTOBACILLUS ACIDOPHILUS CAP (BACID) PO SCH ×3 (08:09→16:50)
[2019-06-05] MEDS: TAMSULOSIN 0.4 MG CAP PO SCH (08:09)
[2019-06-05] MEDS: SODIUM BICARBONATE 325 MG TAB PO SCH ×2 (08:09→19:43)
[2019-06-05] MEDS: HumaLOG INSULIN (NovoLOG) PER UNIT SC SCH ×4 (08:10→20:35)
[2019-06-05] MEDS: FLUTICASONE PROP 0.05% NASAL SPRAY 16 GM (FLONASE) SCH (08:10)
[2019-06-05] MEDS: CARVedilol 6.25 MG TAB PO SCH ×2 (08:10→19:45)
[2019-06-05 10:00] VITALS: BP 129/61
--- NOTE | 2019-06-05 13:28 | IPNPDOC ---
Subjective Date Seen The patient was seen on 06/05/19. Subjective Chief Complaint/HPI Mrs. Vargas is feeling better than she did yesterday. The fissure on her side is still painful, but does not seem to bothering her as much as it did yesterday. Her primary concern today is that she has not had a bowel movement for at least 3 days. She has not been up to work with physical therapy today, but hopefully that can happen before the end of the day. General: Reports: Normal Appetite Constitutional: Denies: Chills, Fever Pulmonary: Denies: Dyspnea, Cough Cardiovascular: Denies: Chest Pain, Palpitations Gastrointestinal: Reports: Constipation Genitourinary: Denies: Dysuria Psych: Reports: Mood Normal Objective Physical Examination General Exam: Positive: Alert, Cooperative, No Acute Distress (sitting comfortably in a chair talking to her when I entered the room) Eye Exam: Positive: Conjunctiva & lids normal; Negative: Sclera icteric ENT Exam: Positive: Mucous membr. moist/pink Neck Exam: Positive: Supple; Negative: Lymphadenopathy Chest Exam: Positive: Clear to auscultation, Diminished (secondary to obesity-hypoventilation syndrome); Negative: Rales, Rhonchi, Wheezing Heart Exam: Positive: Rate Normal, Irregular Rhythm, Murmurs Abdomen Exam: Positive: Normal bowel sounds, Soft; Negative: Tenderness Extremity Exam: Negative: Edema Psych Exam: Positive: Mood NL, Memory Intact, Oriented x 3 Assessment /Plan Problems (1) Acute on chronic kidney failure Status: Acute Problem Text: 06/05/19: Her creatinine continues to slowly improve. Continue to monitor. 06/04/19: Her creatinine is down to 3.03 today. This is certainly an improvement. We'll continue to monitor. 06/03/19: Renal function stable at present. Cordon catheter was placed as she was found to be in urinary retention. 06/02/19: Kidney function continues to trend down. Nephrology following. Lasix was restarted yesterday. Urine results pending 06/01/19: GFR down to 14.1, Cre 3.45. Baseline Cre ~2.5, Baseline GFR ~25. Nephrology consulted (2) Anemia Status: Chronic Problem Text: Hemoglobin is relatively stable. We'll continue to watch the trend. 06/03/19: Hgb 8.8 today. We will continue to monitor 06/02/19: S/P 1 unit PRBC. Nephrology ordered dose of Aranesp 06/01/19: Hgb 7.5. Baseline ~8-10. Transfuse 1 unit PRBC, consent signed (3) CHF (congestive heart failure) Permanent Comment: 06/01/19: Echocardiogram shows grade 1 diastolic dysfunction Last Edited By: Bryant Arriaga MD on Jun 04, 2019 11:18 pm Status: Chronic Response to Treatment: Stable, Compensated Problem Text: 06/04/19: Echo report shows grade 1 diastolic dysfunction as well as abnormalities in most of the valves. Aortic valve seems to be most affected. 06/03/19: IV Lasix yesterday. ECHO results pending. Fluid restriction 06/02/19: Trace edema noted. Lasix restarted yesterday. Fluid restriction. EHCO scheduled for today 06/01/19: Looks well compensated today. Diuretics remain on hold. She has good oral intake. We will d/c IVF. We will continue to monitor 05/31: BUN/Creatinine higher. Lying supine w/o dyspnea. Looks dry. Will increase IV fluid rate to 100/hour until she can resume po intake. 05/30/19: Appears well compensated on exam. She remains on her diuretics. She is receiving gentle hydration with D5/NS. We will monitor closely> Actually she looks a little dry with reduced skin turgor, no edema and increasing BUN/Creat. Will stop diuretics for now. (4) Fissure in skin Status: Acute Response to Treatment: Controlled Discussed With: Nurse, Patient, Family with Pt Consent Problem Specific Plan: Monitor Clinically Problem Text: I think the InterDry is helping heal the area. Her pain is under better control today. (5) Constipation Problem Specific Plan: Monitor Clinically Problem Text: I ordered a half a bottle of mag citrate today followed by the other half in 4 hours if she has not had a bowel movement. Hopefully this will help clear up her constipation. I suspect this probably be where the mild elevation white count is coming from. Will monitor that carefully. (6) Diabetes mellitus with stage 4 chronic kidney disease GFR 15-29 Status: Chronic Response to Treatment: Stable Problem Text: 06/05/19: She is taking oral feeds just fine. She is on basal insulin with insulin sliding scale. 05/30/19: Patient is on D5/NS at 75/hr. Patient has been unable to eat or drink d/t mouth pain. BG this morning 139. Insulin was held d/t patient poor oral intake. We do want her to go hypoglycemic. Renal function appears fairly stable. Baseline Cre ~2.40-2.70, GFR ~20. We will continue to monitor (7) Atrial fibrillation Status: Chronic Response to Treatment: Stable Problem Text: 06/05/19: Her INR improved a little bit to 1.8 today, however, it is still subtherapeutic. I gave her a one-time dose of 5 mg of warfarin tonight. Tomorrow she should resume her usual dose of 2.5 mg daily unless her treating physicians changed to something else. 06/04/19: Her INR remains subtherapeutic. It actually dropped a little with the extra Coumadin. I'm not going to adjust the dose tonight to see what the INR is tomorrow. If it continues to trend down, we'll need to increase the dose. 06/03/19: INR subtherapeutic 1.68. Will give her an additional 2.5 mg of Coumadin tonight (total 5 mg). Check INR tomorrow 06/02/19: INR 2.48. We will resume her Coumadin 06/01/19: Rate controlled. INR 3.5. Coumadin remains on hold 05/30/19: Rate controlled. Warfarin on hold, INR 3.77 this morning. We will continue to monitor (8) Hypertension Status: Chronic Response to Treatment: Stable Problem Text: 05/30/19: Pressures stable (9) Sialadenitis Status: Resolved Problem Specific Plan: Consult Specialist Problem Text: 06/03/19: D/C IV Clindamycin today. Change to oral Cleocin for a total of 2 weeks per ENT recommendation 06/02/19: Post I and D Warthins duct and floor of mouth sepsis. She remains Afebrile today. Per ENT continue IV ABX for 48 hours while she is being medically stabilized and then consider 2 weeks of Outpatient oral Cleocin. Today will be 48 hours. D/C tomorrow 06/01/19: S/P stone extraction/suction. Patient doing much better. She is tolerating a soft diet. Day # 4 of clindamycin. I will discuss with attending discontinuation date of abx 05/31: patient to go to ENT office for attempt to remove stone from submandibular salivary gland and facilitate drainage this am. Hopefully this will improve pain 05/30/19: Pain persists. ENT was consulted. Dr. Brasher recommended to continue with abx, sialogogues and hydration, massage and heat. We may want to consider repeat study as patient is unable to eat or drink and pain is worse. Day #2 of Clindamycin (10) Physical deconditioning Status: Chronic Discussed With: Patient, Family with Pt Consent Problem Specific Plan: Monitor Clinically Problem Text: She remains physically gait deconditioned and not safe for home. I anticipate remaining to make her SNF status soon. She will likely need some subacute rehabilitation. Plan/VTE VTE Prophylaxis Ordered?: Yes (Warfarin ) Plan Therapy: PT VS, I&O, 24H, Fishbone Vital Signs/I&O Vital Signs Date Time Temp Pulse Resp B/P (MAP) Pulse Ox O2 Delivery O2 Flow Rate FiO2 06/05/19 12:21 18 06/05/19 10:00 97.5 70 129/61 (83) 94 I&O- Last 24 Hours up to 6 AM 06/05/19 06:00 Intake Total 1950 ml Output Total 1000 ml Balance 950 ml Laboratory Data 24H LABS Laboratory Tests 2 06/04/19 16:45: Bedside Glucose (Misc Panel) 186H 06/04/19 20:36: Bedside Glucose (Misc Panel) 192H 06/05/19 05:45: Immature Granulocyte % (Auto) , Nucleated Red Blood Cells % (auto) 0.2H, Neutrophils 70H, Band Neutrophils 4, Lymphocytes (Manual) 11L, Monocytes (Manual) 3, Eosinophils (Manual) 4H, Metamyelocytes 4H, Myelocytes 4H, Platelet Estimate NORMAL, Anisocytosis 1+, Blood Urea Nitrogen 68H, Creatinine 2.86H, Sodium Level 141, Potassium Level 4.0, Chloride Level 111H, Carbon Dioxide Level 18L, Anion Gap 12, Glomerular Filtration Rate 17.5L, Calcium Level 8.0L, Phosphorus Level 4.3#, Magnesium Level 2.1, Albumin 2.4L 06/05/19 11:38: Bedside Glucose (Misc Panel) 146H CBC/BMP Laboratory Tests 06/05/19 05:45 Red Blood Count 2.91 L, Mean Corpuscular Volume 95.5, Mean Corpuscular Hemoglobin 30.2, Mean Corpuscular Hemoglobin Concent 31.7 L, Red Cell Distribution Width 17.2 H, Anion Gap 12 Bryant Arriaga MD Jun 05, 2019 1:28 pm
[2019-06-05 14:00] VITALS: BP 130/63
[2019-06-05] MEDS ORDERED: MAGNESIUM CITRATE 300 ML BTL PO ONE (14:00)
[2019-06-05 14:28] LABS: INR 1.86; PROTHROMBIN TIME 21.2 SECONDS (11.8-14.0)
[2019-06-05] MEDS: WARFARIN SOD 2.5 MG TAB PO SCH (16:50)
[2019-06-05] MEDS ORDERED: WARFARIN SOD 2.5 MG TAB PO ONE (17:00)
[2019-06-05 18:00] VITALS: BP 153/70
[2019-06-05] MEDS ORDERED: MAGNESIUM CITRATE 300 ML BTL PO PRN (18:00)
[2019-06-05] MEDS: LEVEMIR (INSULIN DETEMIR) 1 UNITS/0.01ML SC SCH (19:44)
[2019-06-05] MEDS: ATORVASTATIN 20 MG TAB PO SCH (19:44)
[2019-06-05] MEDS: GABAPENTIN 300 MG CAP PO SCH (19:44)
[2019-06-05] MEDS: SODIUM CHLORIDE NASAL 0.65% SPRAY BTL (OCEAN) PRN (19:45)
[2019-06-05] MEDS: LATANOPROST 0.005% OPHTH SOLN 2.5 ML OU SCH (19:46)
[2019-06-05 22:00] VITALS: BP 151/72
[2019-06-06] MEDS: ACETAMINOPH W/CODEINE #3 TAB UD PO PRN ×6 (01:09→22:20)
[2019-06-06 02:00] VITALS: BP 147/74
[2019-06-06] MEDS: CLINDAMYCIN 150 MG CAP PO SCH ×3 (05:11→21:08)
[2019-06-06 06:00] VITALS: BP 141/76
[2019-06-06 06:08] LABS: HEMATOCRIT 28.2 % (36.0-47.0); HEMOGLOBIN 8.9 g/dl (12.0-15.5); MEAN CORPUSCULAR HEMOGLOBIN 31.2 pg (27.0-33.0); MEAN CORPUSCULAR HGB CONC 31.6 g/dl (32.0-36.5); MEAN CORPUSCULAR VOLUME 98.9 fl (80.0-96.0); PLATELET COUNT, AUTOMATED 194 10^3/uL (150-450); RED BLOOD COUNT 2.85 10^6/uL (4.00-5.40)
[2019-06-06 06:28] LABS: ALBUMIN 2.3 GM/DL (3.2-5.2); BILIRUBIN,TOTAL 0.4 MG/DL (0.2-1.0); CALCIUM LEVEL 8.3 MG/DL (8.8-10.2); CREATININE FOR GFR 2.71 MG/DL (0.55-1.30); GLOMERULAR FILTRATION RATE 18.6 (>45); POTASSIUM SERUM 4.2 MEQ/L (3.5-5.1); TOTAL PROTEIN 6.9 GM/DL (6.4-8.2)
[2019-06-06 06:58] LABS: LYMPHOCYTES 6 % (16-44); METAMYELOCYTES 3 % (0-0); MONOCYTES 3 % (0-5); MYELOCYTES 4 % (0-0); NEUTROPHILS 79 % (28-66)
[2019-06-06 06:59] LABS: ANISOCYTOSIS 1+; PLATELET ESTIMATE NORMAL (NORMAL); POLYCHROMASIA 1+
[2019-06-06] MEDS: SODIUM BICARBONATE 325 MG TAB PO SCH ×2 (08:14→21:09)
[2019-06-06] MEDS: LACTOBACILLUS ACIDOPHILUS CAP (BACID) PO SCH ×3 (08:14→17:25)
[2019-06-06] MEDS: HumaLOG INSULIN (NovoLOG) PER UNIT SC SCH ×4 (08:14→20:22)
[2019-06-06] MEDS: FERROUS GLUCONATE 324 MG TAB PO SCH (08:14)
[2019-06-06] MEDS: MAGNESIUM OXIDE 400 MG TAB (MAG-OX) PO SCH (08:15)
[2019-06-06] MEDS: MONTELUKAST 10 MG TAB PO SCH (08:15)
[2019-06-06] MEDS: SENOKOT S TAB PO SCH (08:15)
[2019-06-06] MEDS: CETIRIZINE (ZyrTEC) 10 MG TAB PO SCH (08:15)
[2019-06-06] MEDS: DIGOXIN 0.25 MG TAB PO SCH (08:16)
[2019-06-06] MEDS: DOCUSATE SODIUM 100 MG CAP PO SCH ×2 (08:16→21:09)
[2019-06-06] MEDS: CARVedilol 6.25 MG TAB PO SCH ×2 (08:17→21:09)
[2019-06-06] MEDS: FLUTICASONE PROP 0.05% NASAL SPRAY 16 GM (FLONASE) SCH (08:29)
--- NOTE | 2019-06-06 09:01 | IPNPDOC ---
Subjective Date Seen The patient was seen on 06/06/19. Subjective Chief Complaint/HPI sialadenitis Events since last encounter Remains constipated. Took Mag citrate with no relief. + flatus. Denies other c/o. Constitutional: Denies: Chills, Fever, Night Sweats Pulmonary: Denies: Dyspnea, Cough, Pleuritic Chest Pain, Other Symptoms Cardiovascular: Denies: Chest Pain, Palpitations, Orthopnea, Paroxysmal Noc. Dyspnea, Lt Headedness Gastrointestinal: Reports: Constipation; Denies: Nausea, Vomiting, Abdominal Pain, Diarrhea Psych: Reports: Mood Normal; Denies: Depression, Memory Issues Objective Physical Examination General Exam: Positive: Alert, Cooperative, No Acute Distress (sitting comfortably in a chair when i entered the room) Eye Exam: Positive: Conjunctiva & lids normal; Negative: Sclera icteric ENT Exam: Positive: Mucous membr. moist/pink Neck Exam: Positive: Supple; Negative: Lymphadenopathy Chest Exam: Positive: Clear to auscultation, Diminished (secondary to obesity- hypoventilation syndrome); Negative: Rales, Rhonchi, Wheezing Heart Exam: Positive: Rate Normal, Irregular Rhythm, Murmurs Abdomen Exam: Positive: Normal bowel sounds, Soft; Negative: Tenderness Extremity Exam: Negative: Edema Psych Exam: Positive: Mood NL, Memory Intact, Oriented x 3 Assessment /Plan Problems (1) Acute on chronic kidney failure Status: Acute Problem Text: 06/06/19: Cr. 2.7. Baseline appears to run 2.4-2.7 06/05/19: Her creatinine continues to slowly improve. Continue to monitor. 06/04/19: Her creatinine is down to 3.03 today. This is certainly an improvement. We'll continue to monitor. 06/03/19: Renal function stable at present. Cordon catheter was placed as she was found to be in urinary retention. 06/02/19: Kidney function continues to trend down. Nephrology following. Lasix was restarted yesterday. Urine results pending 06/01/19: GFR down to 14.1, Cre 3.45. Baseline Cre ~2.5, Baseline GFR ~25. Nephrology consulted (2) Anemia Status: Chronic Problem Text: Hemoglobin is relatively stable. We'll continue to watch the trend. 06/03/19: Hgb 8.8 today. We will continue to monitor 06/02/19: S/P 1 unit PRBC. Nephrology ordered dose of Aranesp 06/01/19: Hgb 7.5. Baseline ~8-10. Transfuse 1 unit PRBC, consent signed (3) CHF (congestive heart failure) Permanent Comment: 06/01/19: Echocardiogram shows grade 1 diastolic dysfunction Last Edited By: Bryant Arriaga MD on Jun 04, 2019 23:18 Status: Chronic Response to Treatment: Stable, Compensated Problem Text: 06/04/19: Echo report shows grade 1 diastolic dysfunction as well as abnormalities in most of the valves. Aortic valve seems to be most affected. 06/03/19: IV Lasix yesterday. ECHO results pending. Fluid restriction 06/02/19: Trace edema noted. Lasix restarted yesterday. Fluid restriction. EHCO scheduled for today 06/01/19: Looks well compensated today. Diuretics remain on hold. She has good oral intake. We will d/c IVF. We will continue to monitor 05/31: BUN/Creatinine higher. Lying supine w/o dyspnea. Looks dry. Will increase IV fluid rate to 100/hour until she can resume po intake. 05/30/19: Appears well compensated on exam. She remains on her diuretics. She is receiving gentle hydration with D5/NS. We will monitor closely> Actually she looks a little dry with reduced skin turgor, no edema and increasing BUN/Creat. Will stop diuretics for now. (4) Fissure in skin Status: Acute Response to Treatment: Improving, Controlled Discussed With: Nurse, Patient, Family with Pt Consent Problem Specific Plan: Monitor Clinically Problem Text: I think the InterDry is helping heal the area. Her pain is under better control today. (5) Constipation Problem Specific Plan: Monitor Clinically Problem Text: added on miralax, encouraged to get OOB. I ordered a half a bottle of mag citrate today followed by the other half in 4 hours if she has not had a bowel movement. Hopefully this will help clear up her constipation. I suspect this probably be where the mild elevation white count is coming from. Will monitor that carefully. (6) Diabetes mellitus with stage 4 chronic kidney disease GFR 15-29 Status: Chronic Response to Treatment: Stable Problem Text: 06/05/19: She is taking oral feeds just fine. She is on basal insulin with insulin sliding scale. 05/30/19: Patient is on D5/NS at 75/hr. Patient has been unable to eat or drink d/t mouth pain. BG this morning 139. Insulin was held d/t patient poor oral intake. We do want her to go hypoglycemic. Renal function appears fairly stable. Baseline Cre ~2.40-2.70, GFR ~20. We will continue to monitor (7) Atrial fibrillation Status: Chronic Response to Treatment: Stable Problem Text: 06/05/19: Her INR improved a little bit to 1.8 today, however, it is still subtherapeutic. I gave her a one-time dose of 5 mg of warfarin tonight. Tomorrow she should resume her usual dose of 2.5 mg daily unless her treating physicians changed to something else. 06/04/19: Her INR remains subtherapeutic. It actually dropped a little with the extra Coumadin. I'm not going to adjust the dose tonight to see what the INR is tomorrow. If it continues to trend down, we'll need to increase the dose. 06/03/19: INR subtherapeutic 1.68. Will give her an additional 2.5 mg of Coumadin tonight (total 5 mg). Check INR tomorrow 06/02/19: INR 2.48. We will resume her Coumadin 06/01/19: Rate controlled. INR 3.5. Coumadin remains on hold 05/30/19: Rate controlled. Warfarin on hold, INR 3.77 this morning. We will continue to monitor (8) Hypertension Status: Chronic Response to Treatment: Stable Problem Text: 05/30/19: Pressures stable (9) Sialadenitis Status: Resolved Problem Specific Plan: Consult Specialist Problem Text: 06/03/19: D/C IV Clindamycin today. Change to oral Cleocin for a total of 2 weeks per ENT recommendation 06/02/19: Post I and D Warthins duct and floor of mouth sepsis. She remains Afebrile today. Per ENT continue IV ABX for 48 hours while she is being medically stabilized and then consider 2 weeks of Outpatient oral Cleocin. Today will be 48 hours. D/C tomorrow 06/01/19: S/P stone extraction/suction. Patient doing much better. She is tolerating a soft diet. Day # 4 of clindamycin. I will discuss with attending discontinuation date of abx 05/31: patient to go to ENT office for attempt to remove stone from submandibular salivary gland and facilitate drainage this am. Hopefully this will improve pain 05/30/19: Pain persists. ENT was consulted. Dr. Brasher recommended to continue with abx, sialogogues and hydration, massage and heat. We may want to consider repeat study as patient is unable to eat or drink and pain is worse. Day #2 of Clindamycin (10) Physical deconditioning Status: Chronic Discussed With: Patient, Family with Pt Consent Problem Specific Plan: Monitor Clinically Problem Text: She remains physically gait deconditioned and not safe for home. I anticipate remaining to make her SNF status soon. She will likely need some subacute rehabilitation. Plan/VTE VTE Prophylaxis Ordered?: Yes (Warfarin ) Plan Therapy: PT VS, I&O, 24H, Fishbone Vital Signs/I&O Vital Signs Date Time Temp Pulse Resp B/P (MAP) Pulse Ox O2 Delivery O2 Flow Rate FiO2 06/06/19 08:17 75 138/61 06/06/19 06:00 97.7 19 97 I&O- Last 24 Hours up to 6 AM 06/06/19 06:00 Intake Total 840 ml Balance 840 ml Laboratory Data 24H LABS Laboratory Tests 2 06/05/19 11:38: Bedside Glucose (Misc Panel) 146H 06/05/19 14:06: Prothrombin Time 21.2H, Prothromb Time International Ratio 1.86 06/05/19 16:45: Bedside Glucose (Misc Panel) 155H 06/05/19 20:06: Bedside Glucose (Misc Panel) 165H 06/06/19 05:46: Immature Granulocyte % (Auto) , Nucleated Red Blood Cells % (auto) 0.4H, Neutrophils 79H, Band Neutrophils 5, Lymphocytes (Manual) 6L, Monocytes (Manual) 3, Metamyelocytes 3H, Myelocytes 4H, Platelet Estimate NORMAL, Polychromasia 1+, Anisocytosis 1+, Anion Gap 10, Glomerular Filtration Rate 18.6L, Blood Urea Nitrogen 68H, Creatinine 2.71H, Sodium Level 142, Potassium Level 4.2, Chloride Level 114H, Carbon Dioxide Level 18L, Calcium Level 8.3L, Aspartate Amino Transf (AST/SGOT) 42H, Alanine Aminotransferase (ALT/SGPT) 14, Alkaline Phosphatase 284H, Total Bilirubin 0.4, Total Protein 6.9, Albumin 2.3L, Albumin/Globulin Ratio 0.50L CBC/BMP Laboratory Tests 06/06/19 05:46 Red Blood Count 2.85 L, Mean Corpuscular Volume 98.9 H, Mean Corpuscular Hemoglobin 31.2, Mean Corpuscular Hemoglobin Concent 31.6 L, Red Cell Distribution Width 17.2 H, Calcium Level 8.3 L, Aspartate Amino Transf (AST/SGOT) 42 H, Alanine Aminotransferase (ALT/SGPT) 14, Alkaline Phosphatase 284 H, Total Bilirubin 0.4, Total Protein 6.9, Albumin 2.3 L Deborah Shoemaker [employer] Jun 06, 2019 09:01
[2019-06-06] MEDS: TAMSULOSIN 0.4 MG CAP PO SCH ×2 (09:28→11:39)
[2019-06-06 10:00] VITALS: BP 134/59
[2019-06-06] MEDS ORDERED: MIRALAX *UNIT DOSE* 17GM PACKET PO ONE (10:00)
[2019-06-06] MEDS ORDERED: POLYETHYLENE GLYCOL (MIRALAX) 238GM BOTTLE PO ONE (10:00)
[2019-06-06] MEDS: NYSTATIN 100,000 UNITS/GM TOPICAL PWD 15 GM TOP SCH ×3 (10:21→22:20)
[2019-06-06 13:00] LABS: INR 2.24; PROTHROMBIN TIME 24.6 SECONDS (11.8-14.0)
[2019-06-06 14:00] VITALS: BP 115/66
[2019-06-06] MEDS: WARFARIN SOD 2.5 MG TAB PO SCH (17:24)
[2019-06-06 18:00] VITALS: BP 121/72
--- NOTE | 2019-06-06 19:07 | IPN ---
DATE: 06/05/2019 Mrs. Vargas is seen this morning on her bedside. She is feeling well and denies any new complaints. Her Cordon catheter was removed yesterday and she reports no difficulty voiding. She denies any dyspnea, chest pain, nausea or vomiting. PHYSICAL EXAMINATION: Temperature 97.5 degrees Fahrenheit, heart rate 70 per minute and respiratory rate 18 per minute. Blood pressure 129/60 mmHg and oxygen saturation 94% on room air. Head is atraumatic. Neck is supple and jugular venous distention (JVD) is not abnormally elevated. Heart sounds are regular. Lungs with diminished breath sounds. Abdomen obese, soft and nontender. Extremities without any cyanosis or clubbing. Neurologically she is awake, alert and oriented times three. Today's labs show WBC count 13.3, hemoglobin 8.8 and hematocrit 27.8. Platelets 213. Sodium 141, potassium 4.0, CO2 18, BUN 68 and creatinine 2.86. Calcium level is 8.0, phosphorus 4.3 and magnesium 2.1. PROBLEMS: 1. Acute renal failure superimposed on chronic kidney disease. Kidney function is gradually improving and currently she is not on any intravenous (IV) fluid. Her oral intake is adequate and we will continue to monitor closely. 2. Metabolic acidosis. She is currently stable and remains on oral sodium bicarbonate supplement, which will be continued until her acidosis completely resolves. 3. Anemia. At present, her anemia is stable and she remains on Aranesp 300 mcg once a week. She will receive her dose on Thursday. 4. Urinary retention. Patient had a Cordon catheter placed, which was removed yesterday and she seems to be voiding well without any difficulty at present. No other intervention is needed.
[2019-06-06] MEDS: LATANOPROST 0.005% OPHTH SOLN 2.5 ML OU SCH (21:08)
[2019-06-06] MEDS: SODIUM CHLORIDE NASAL 0.65% SPRAY BTL (OCEAN) PRN (21:08)
[2019-06-06] MEDS: GABAPENTIN 300 MG CAP PO SCH (21:09)
[2019-06-06] MEDS: ATORVASTATIN 20 MG TAB PO SCH (21:10)
[2019-06-06] MEDS: LEVEMIR (INSULIN DETEMIR) 1 UNITS/0.01ML SC SCH (21:10)
[2019-06-06 22:00] VITALS: BP 122/58
[2019-06-06] MEDS: ONDANSETRON 4 MG TAB (S0181) PO PRN (23:02)
[2019-06-07 02:00] VITALS: BP 121/60
[2019-06-07] MEDS: CLINDAMYCIN 150 MG CAP PO SCH ×3 (05:27→21:20)
[2019-06-07 06:00] VITALS: BP 126/61
[2019-06-07] MEDS: HumaLOG INSULIN (NovoLOG) PER UNIT SC SCH ×6 (07:30→20:17)
--- NOTE | 2019-06-07 07:56 | IPN ---
DATE: 06/06/2019 Mrs. Vargas is seen this morning on her bedside. She is feeling better today and reports that she did have a bowel movement. She denies any nausea, vomiting, dyspnea or chest pain. PHYSICAL EXAMINATION: Temperature 97.4 degrees Fahrenheit, heart rate 70 per minute, respiratory rate 16 per minute. Blood pressure 134/59 mmHg and oxygen saturation 95% on room air. Head is atraumatic. Neck is supple and jugular venous distention (JVD) is not abnormally elevated. Heart sounds are regular and lungs clear to auscultation. Abdomen is soft and nontender and bowel sounds are normal. Extremities are without any cyanosis or clubbing. Neurologically, she is awake, alert and at her baseline mentation. Today's labs show WBC count 12.0, hemoglobin 8.9 and hematocrit 28.2. Platelets 194. Sodium 142, potassium 4.2, CO2 18, BUN 68 and creatinine 2.71. Glucose 154 and calcium 8.3. PROBLEMS: 1. Acute renal failure superimposed on chronic kidney disease. No improvement in kidney function noted. At present, we will continue to monitor. She is clinically not dehydrated and I would not give her IV fluid. Her Cordon catheter has already been removed and she is voiding well. 2. Metabolic acidosis. No change noticed in the last 3 days. She remains on oral sodium bicarbonate, and we will continue with the same. 3. Anemia. Her anemia is stable and she remains on Aranesp once a week, which will be continued. 4. Constipation. The patient has been on Senokot and did have bowel movement today. We will continue with daily Senokot at this time.
[2019-06-07] MEDS: LACTOBACILLUS ACIDOPHILUS CAP (BACID) PO SCH ×3 (08:28→18:00)
[2019-06-07] MEDS: SODIUM BICARBONATE 325 MG TAB PO SCH ×2 (08:28→20:53)
[2019-06-07] MEDS: DOCUSATE SODIUM 100 MG CAP PO SCH ×2 (08:29→20:53)
[2019-06-07] MEDS: TAMSULOSIN 0.4 MG CAP PO SCH (08:29)
[2019-06-07] MEDS: CETIRIZINE (ZyrTEC) 10 MG TAB PO SCH (08:29)
[2019-06-07] MEDS: MONTELUKAST 10 MG TAB PO SCH (08:29)
[2019-06-07] MEDS: SENOKOT S TAB PO SCH (08:29)
[2019-06-07] MEDS: ONDANSETRON 4 MG TAB (S0181) PO PRN (08:30)
[2019-06-07] MEDS: ACETAMINOPH W/CODEINE #3 TAB UD PO PRN ×3 (08:30→18:50)
[2019-06-07] MEDS: CARVedilol 6.25 MG TAB PO SCH ×2 (08:30→20:54)
[2019-06-07] MEDS: FLUTICASONE PROP 0.05% NASAL SPRAY 16 GM (FLONASE) SCH (08:46)
--- NOTE | 2019-06-07 09:17 | IPNPDOC ---
Subjective Date Seen The patient was seen on 06/07/19. Subjective Chief Complaint/HPI complaining of 2 day h/o epigastric pain, nausea and difficulty swallowing Constitutional: Denies: Chills, Fever Pulmonary: Denies: Dyspnea, Cough Cardiovascular: Denies: Chest Pain, Palpitations Gastrointestinal: Reports: Nausea, Vomiting, Abdominal Pain; Denies: Diarrhea, Constipation Objective Physical Examination General Exam: Positive: Alert, Cooperative, Mild Distress (holding emesis bag and holding erh epigastrum in discomfort) Eye Exam: Positive: Conjunctiva & lids normal; Negative: Sclera icteric ENT Exam: Positive: Mucous membr. moist/pink Neck Exam: Positive: Supple; Negative: Lymphadenopathy Chest Exam: Positive: Clear to auscultation, Diminished (secondary to obesity- hypoventilation syndrome); Negative: Rales, Rhonchi, Wheezing Heart Exam: Positive: Rate Normal, Irregular Rhythm, Murmurs Abdomen Exam: Positive: Normal bowel sounds, Soft; Negative: Tenderness Extremity Exam: Negative: Edema Psych Exam: Positive: Mood NL, Memory Intact, Oriented x 3 Assessment /Plan Problems (1) Epigastric pain Status: Acute Problem Text: Most likely related to esophagitis from the Clindamycin po. Add PPI and TUMs prn as well as Zofran as needed for nausea (2) Sialadenitis Status: Resolved Problem Specific Plan: Consult Specialist Problem Text: 06/07 - Now on po Clindamycin D#9 overall. Supposed to continue for 2 weeks, but may not tolerate this. See above. 06/03/19: D/C IV Clindamycin today. Change to oral Cleocin for a total of 2 weeks per ENT recommendation 06/02/19: Post I and D Warthins duct and floor of mouth sepsis. She remains Afebrile today. Per ENT continue IV ABX for 48 hours while she is being medically stabilized and then consider 2 weeks of Outpatient oral Cleocin. Today will be 48 hours. D/C tomorrow 06/01/19: S/P stone extraction/suction. Patient doing much better. She is tolerating a soft diet. Day # 4 of clindamycin. I will discuss with attending discontinuation date of abx 05/31: patient to go to ENT office for attempt to remove stone from submandibular salivary gland and facilitate drainage this am. Hopefully this will improve pain 05/30/19: Pain persists. ENT was consulted. Dr. Brasher recommended to continue with abx, sialogogues and hydration, massage and heat. We may want to consider repeat study as patient is unable to eat or drink and pain is worse. Day #2 of Clindamycin (3) Acute on chronic kidney failure Status: Acute Problem Text: 06/07 - Almost back to baseline. Cordon removed voiding well Nephrology following 06/06/19: Cr. 2.7. Baseline appears to run 2.4-2.7 06/05/19: Her creatinine continues to slowly improve. Continue to monitor. 06/04/19: Her creatinine is down to 3.03 today. This is certainly an improvement. We'll continue to monitor. 06/03/19: Renal function stable at present. Cordon catheter was placed as she was found to be in urinary retention. 06/02/19: Kidney function continues to trend down. Nephrology following. Lasix was restarted yesterday. Urine results pending 06/01/19: GFR down to 14.1, Cre 3.45. Baseline Cre ~2.5, Baseline GFR ~25. Nephrology consulted (4) Anemia Status: Chronic Response to Treatment: Stable Problem Text: Hemoglobin is relatively stable. We'll continue to watch the trend. 06/03/19: Hgb 8.8 today. We will continue to monitor 06/02/19: S/P 1 unit PRBC. Nephrology ordered dose of Aranesp 06/01/19: Hgb 7.5. Baseline ~8-10. Transfuse 1 unit PRBC, consent signed (5) CHF (congestive heart failure) Permanent Comment: 06/01/19: Echocardiogram shows grade 1 diastolic dysfunction Last Edited By: Bryant Arriaga MD on Jun 04, 2019 23:18 Status: Chronic Response to Treatment: Stable, Compensated Problem Text: 06/04/19: Echo report shows grade 1 diastolic dysfunction as well as abnormalities in most of the valves. Aortic valve seems to be most affected. 06/03/19: IV Lasix yesterday. ECHO results pending. Fluid restriction 06/02/19: Trace edema noted. Lasix restarted yesterday. Fluid restriction. EHCO scheduled for today 06/01/19: Looks well compensated today. Diuretics remain on hold. She has good oral intake. We will d/c IVF. We will continue to monitor 05/31: BUN/Creatinine higher. Lying supine w/o dyspnea. Looks dry. Will increase IV fluid rate to 100/hour until she can resume po intake. 05/30/19: Appears well compensated on exam. She remains on her diuretics. She is receiving gentle hydration with D5/NS. We will monitor closely> Actually she looks a little dry with reduced skin turgor, no edema and increasing BUN/Creat. Will stop diuretics for now. (6) Fissure in skin Status: Acute Response to Treatment: Improving, Controlled Discussed With: Nurse, Patient, Family with Pt Consent Problem Specific Plan: Monitor Clinically Problem Text: I think the InterDry is helping heal the area. Her pain is under better control today. (7) Constipation Problem Specific Plan: Monitor Clinically Problem Text: added on miralax, encouraged to get OOB. I ordered a half a bottle of mag citrate today followed by the other half in 4 hours if she has not had a bowel movement. Hopefully this will help clear up her constipation. I suspect this probably be where the mild elevation white count is coming from. Will monitor that carefully. (8) Diabetes mellitus with stage 4 chronic kidney disease GFR 15-29 Status: Chronic Response to Treatment: Stable Problem Text: 06/05/19: She is taking oral feeds just fine. She is on basal insulin with insulin sliding scale. 05/30/19: Patient is on D5/NS at 75/hr. Patient has been unable to eat or drink d/t mouth pain. BG this morning 139. Insulin was held d/t patient poor oral i ntake. We do want her to go hypoglycemic. Renal function appears fairly stable. Baseline Cre ~2.40-2.70, GFR ~20. We will continue to monitor (9) Atrial fibrillation Status: Chronic Response to Treatment: Stable Problem Text: 06/05/19: Her INR improved a little bit to 1.8 today, however, it is still subtherapeutic. I gave her a one-time dose of 5 mg of warfarin tonight. Tomorrow she should resume her usual dose of 2.5 mg daily unless her treating physicians changed to something else. 06/04/19: Her INR remains subtherapeutic. It actually dropped a little with the extra Coumadin. I'm not going to adjust the dose tonight to see what the INR is tomorrow. If it continues to trend down, we'll need to increase the dose. 06/03/19: INR subtherapeutic 1.68. Will give her an additional 2.5 mg of Coumadin tonight (total 5 mg). Check INR tomorrow 06/02/19: INR 2.48. We will resume her Coumadin 06/01/19: Rate controlled. INR 3.5. Coumadin remains on hold 05/30/19: Rate controlled. Warfarin on hold, INR 3.77 this morning. We will continue to monitor (10) Hypertension Status: Chronic Response to Treatment: Stable Problem Text: 05/30/19: Pressures stable (11) Physical deconditioning Status: Chronic Discussed With: Patient, Family with Pt Consent Problem Specific Plan: Monitor Clinically Problem Text: She remains physically gait deconditioned and not safe for home. I anticipate remaining to make her SNF status soon. She will likely need some subacute rehabilitation. Plan/VTE VTE Prophylaxis Ordered?: Yes (Warfarin ) Plan Therapy: PT Disposition Nt safe for d/c yet VS, I&O, 24H, Fishbone Vital Signs/I&O Vital Signs Date Time Temp Pulse Resp B/P (MAP) Pulse Ox O2 Delivery O2 Flow Rate FiO2 06/07/19 08:30 18 06/07/19 08:30 71 144/68 06/07/19 06:00 98.1 97 I&O- Last 24 Hours up to 6 AM 06/07/19 06:00 Intake Total 995 ml Output Total 650 ml Balance 345 ml Laboratory Data 24H LABS Laboratory Tests 2 06/06/19 11:18: Bedside Glucose (Misc Panel) 145H 06/06/19 12:21: Prothrombin Time 24.6H, Prothromb Time International Ratio 2.24 06/06/19 12:21: Lab Scanned Report Transfusion Record 06/06/19 16:37: Bedside Glucose (Misc Panel) 151H 06/06/19 20:11: Bedside Glucose (Misc Panel) 138H 06/07/19 07:59: Bedside Glucose (Misc Panel) 159H 06/07/19 08:11: Bedside Glucose (Misc Panel) 137H YUMIKO QUESADA PA-C Jun 07, 2019 09:17
[2019-06-07 10:00] VITALS: BP 130/65
[2019-06-07 10:02] LABS: INR 2.32; PROTHROMBIN TIME 25.3 SECONDS (11.8-14.0)
[2019-06-07] MEDS: PANTOPRAZOLE 40MG TAB (PROTONIX) PO SCH (10:54)
[2019-06-07] MEDS ORDERED: CALCIUM CARBONATE 500 MG CHEW U/D PO ONE (11:00)
[2019-06-07 11:13] LABS: HEMATOCRIT 32.2 % (36.0-47.0); MEAN CORPUSCULAR HEMOGLOBIN 31.7 pg (27.0-33.0); MEAN CORPUSCULAR HGB CONC 31.1 g/dl (32.0-36.5); MEAN CORPUSCULAR VOLUME 102.2 fl (80.0-96.0); PLATELET COUNT, AUTOMATED 213 10^3/uL (150-450); RED BLOOD COUNT 3.15 10^6/uL (4.00-5.40); WHITE BLOOD COUNT 13.6 10^3/uL (4.0-10.0)
[2019-06-07 11:14] LABS: CALCIUM LEVEL 8.1 MG/DL (8.8-10.2); CREATININE FOR GFR 2.62 MG/DL (0.55-1.30); GLOMERULAR FILTRATION RATE 19.3 (>45)
[2019-06-07] MEDS ORDERED: BUMETANIDE 1 MG TAB PO ONE ×2 (12:00→13:00)
[2019-06-07] MEDS: FLUCONAZOLE 100 MG TAB PO SCH (13:32)
[2019-06-07] MEDS: CALCIUM CARBONATE 500 MG CHEW U/D PO PRN ×2 (13:33→18:50)
[2019-06-07 14:00] VITALS: BP 142/57
[2019-06-07 18:00] VITALS: BP 149/59
[2019-06-07] MEDS: WARFARIN SOD 2.5 MG TAB PO SCH (18:05)
--- NOTE | 2019-06-07 18:41 | IPN ---
DATE: 06/07/2019 Mrs. Vargas is seen this morning on her bedside. She is sitting in the chair reading newspaper and her is also present. The patient reports worsening discomfort on swallowing of any liquids or food. She also continues to have complaint of constipation. She denies any fever, chills, dyspnea or chest pain. PHYSICAL EXAMINATION: Temperature 96.5 degrees Fahrenheit, heart rate 72 per minute and respiratory rate 20 per minute. Blood pressure 130/65 mmHg and oxygen saturation 93% on room air. Head is atraumatic. Neck is supple and jugular venous distention (JVD) difficult to be assessed sitting upright. Lungs are diminished. Heart sounds are regular. Abdomen is obese, soft and nontender. Extremities without any cyanosis or clubbing. Lower extremity edema is at least 2+ bilaterally. Neurologically, she is awake, alert and oriented times three. LABORATORY DATA: Today's laboratories show sodium 141, potassium 5.0, chloride 110, CO2 20, BUN 70 and creatinine 2.62. Glucose 160 and calcium 8.1. WBC count is 13.6, hemoglobin 10.0 and hematocrit 32.2. Platelets 213. PROBLEMS: 1. Acute kidney injury superimposed on chronic kidney disease. The patient has only slight improvement in her kidney function everyday but it is certainly improving everyday. We will continue to monitor closely. 2. Metabolic acidosis. Her acidosis is gradually improving and she remains on oral sodium bicarbonate which will be continued until her bicarbonate level is normal. 3. Hypervolemia and lower extremity edema. Volume status is slightly decompensated. I will give her one dose of bumetanide 1 mg today and see how she responds. We will use the diuretic as needed. 4. Anemia. Her anemia is improving and she has been receiving Aranesp 100 mcg once a week. 5. Dysphagia and constipation. Her primary care team is addressing this issue.
[2019-06-07] MEDS: SODIUM CHLORIDE NASAL 0.65% SPRAY BTL (OCEAN) PRN (20:52)
[2019-06-07] MEDS: NYSTATIN 100,000 UNITS/GM TOPICAL PWD 15 GM TOP SCH (20:52)
[2019-06-07] MEDS: GABAPENTIN 300 MG CAP PO SCH (20:53)
[2019-06-07] MEDS: LATANOPROST 0.005% OPHTH SOLN 2.5 ML OU SCH (20:53)
[2019-06-07] MEDS: LEVEMIR (INSULIN DETEMIR) 1 UNITS/0.01ML SC SCH (20:54)
[2019-06-07] MEDS: ATORVASTATIN 20 MG TAB PO SCH (20:54)
[2019-06-07 22:00] VITALS: BP 137/61
[2019-06-08 02:00] VITALS: BP 135/60
[2019-06-08] MEDS: CLINDAMYCIN 150 MG CAP PO SCH ×3 (05:50→22:09)
[2019-06-08 06:00] VITALS: BP 133/59
[2019-06-08 06:16] LABS: INR 3.03; PROTHROMBIN TIME 31.3 SECONDS (11.8-14.0)
[2019-06-08 06:31] LABS: CALCIUM LEVEL 9.2 MG/DL (8.8-10.2); CREATININE FOR GFR 2.81 MG/DL (0.55-1.30); GLOMERULAR FILTRATION RATE 17.8 (>45); POTASSIUM SERUM 4.6 MEQ/L (3.5-5.1)
[2019-06-08] MEDS: HumaLOG INSULIN (NovoLOG) PER UNIT SC SCH ×4 (07:30→21:00)
[2019-06-08] MEDS: LACTOBACILLUS ACIDOPHILUS CAP (BACID) PO SCH ×3 (08:00→18:00)
[2019-06-08] MEDS: ACETAMINOPH W/CODEINE #3 TAB UD PO PRN (08:21)
--- NOTE | 2019-06-08 08:35 | IPNPDOC ---
Subjective Date Seen The patient was seen on 06/08/19. Subjective Chief Complaint/HPI continues to c/o constant esophageal discomfort and difficulty swallowing Constitutional: Denies: Chills, Fever Pulmonary: Denies: Dyspnea, Cough Cardiovascular: Denies: Chest Pain, Palpitations Gastrointestinal: Reports: Nausea, Abdominal Pain, Constipation; Denies: Vomiting, Diarrhea Objective Physical Examination General Exam: Positive: Alert, Cooperative, Mild Distress (holding emesis bag and holding erh epigastrum in discomfort) Eye Exam: Positive: Conjunctiva & lids normal; Negative: Sclera icteric ENT Exam: Positive: Mucous membr. moist/pink Neck Exam: Positive: Supple; Negative: Lymphadenopathy Chest Exam: Positive: Clear to auscultation, Diminished (secondary to obesity- hypoventilation syndrome); Negative: Rales, Rhonchi, Wheezing Heart Exam: Positive: Rate Normal, Irregular Rhythm, Murmurs Abdomen Exam: Positive: Normal bowel sounds, Soft; Negative: Tenderness Extremity Exam: Negative: Edema Psych Exam: Positive: Mood NL, Memory Intact, Oriented x 3 Assessment /Plan Problems (1) Epigastric pain Status: Acute Problem Text: 06/08 - Most likely related to esophagitis from the Clindamycin po. PPI and TUMs prn added yesterday. Give Maalox today and increase bowel care. Zofran as needed for nausea Diflucan started yesterday for potential esophageal candidiasis ( Renally dosed) (2) Sialadenitis Status: Resolved Problem Specific Plan: Consult Specialist Problem Text: 06/07 - Now on po Clindamycin D#10 overall. Supposed to continue for 2 weeks, but may not tolerate this. See above. 06/03/19: D/C IV Clindamycin today. Change to oral Cleocin for a total of 2 weeks per ENT recommendation 06/02/19: Post I and D Warthins duct and floor of mouth sepsis. She remains Afebrile today. Per ENT continue IV ABX for 48 hours while she is being medically stabilized and then consider 2 weeks of Outpatient oral Cleocin. Today will be 48 hours. D/C tomorrow 06/01/19: S/P stone extraction/suction. Patient doing much better. She is tolerating a soft diet. Day # 4 of clindamycin. I will discuss with attending discontinuation date of abx 05/31: patient to go to ENT office for attempt to remove stone from submandibular salivary gland and facilitate drainage this am. Hopefully this will improve pain 05/30/19: Pain persists. ENT was consulted. Dr. Brasher recommended to continue with abx, sialogogues and hydration, massage and heat. We may want to consider repeat study as patient is unable to eat or drink and pain is worse. Day #2 of Clindamycin (3) Acute on chronic kidney failure Status: Acute Problem Text: 06/08 - Diuretic restarted per Nephrology yesterday. Creatinine up slightly Cordon removed voiding well Nephrology following 06/06/19: Cr. 2.7. Baseline appears to run 2.4-2.7 06/05/19: Her creatinine continues to slowly improve. Continue to monitor. 06/04/19: Her creatinine is down to 3.03 today. This is certainly an improvement. We'll continue to monitor. 06/03/19: Renal function stable at present. Cordon catheter was placed as she was found to be in urinary retention. 06/02/19: Kidney function continues to trend down. Nephrology following. Lasix was restarted yesterday. Urine results pending 06/01/19: GFR down to 14.1, Cre 3.45. Baseline Cre ~2.5, Baseline GFR ~25. Nephrology consulted (4) CHF (congestive heart failure) Permanent Comment: 06/01/19: Echocardiogram shows grade 1 diastolic dysfunction Last Edited By: Bryant Arriaga MD on Jun 04, 2019 23:18 Status: Chronic Response to Treatment: Stable, Compensated Problem Text: 06/08 - Diuretic restarted yesterday (Bumex 1 mg x1 ) per nephrology for slight decompensation 06/04/19: Echo report shows grade 1 diastolic dysfunction as well as abno rmalities in most of the valves. Aortic valve seems to be most affected. 06/03/19: IV Lasix yesterday. ECHO results pending. Fluid restriction 06/02/19: Trace edema noted. Lasix restarted yesterday. Fluid restriction. EHCO scheduled for today 06/01/19: Looks well compensated today. Diuretics remain on hold. She has good oral intake. We will d/c IVF. We will continue to monitor 05/31: BUN/Creatinine higher. Lying supine w/o dyspnea. Looks dry. Will increase IV fluid rate to 100/hour until she can resume po intake. 05/30/19: Appears well compensated on exam. She remains on her diuretics. She is receiving gentle hydration with D5/NS. We will monitor closely> Actually she looks a little dry with reduced skin turgor, no edema and increasing BUN/Creat. Will stop diuretics for now. (5) Anemia Status: Chronic Response to Treatment: Stable Problem Text: Hemoglobin is relatively stable. We'll continue to watch the trend. 06/03/19: Hgb 8.8 today. We will continue to monitor 06/02/19: S/P 1 unit PRBC. Nephrology ordered dose of Aranesp 06/01/19: Hgb 7.5. Baseline ~8-10. Transfuse 1 unit PRBC, consent signed (6) Fissure in skin Status: Acute Response to Treatment: Improving, Controlled Discussed With: Nurse, Patient, Family with Pt Consent Problem Specific Plan: Monitor Clinically Problem Text: I think the InterDry is helping heal the area. Her pain is under better control today. (7) Constipation Problem Specific Plan: Monitor Clinically Problem Text: added on miralax, encouraged to get OOB. I ordered a half a bottle of mag citrate today followed by the other half in 4 hours if she has not had a bowel movement. Hopefully this will help clear up her constipation. I suspect this probably be where the mild elevation white count is coming from. Will monitor that carefully. (8) Diabetes mellitus with stage 4 chronic kidney disease GFR 15-29 Status: Chronic Response to Treatment: Stable Problem Text: 06/05/19: She is taking oral feeds just fine. She is on basal insulin with insulin sliding scale. 05/30/19: Patient is on D5/NS at 75/hr. Patient has been unable to eat or drink d/t mouth pain. BG this morning 139. Insulin was held d/t patient poor oral intake. We do want her to go hypoglycemic. Renal function appears fairly stable. Baseline Cre ~2.40-2.70, GFR ~20. We will continue to monitor (9) Atrial fibrillation Status: Chronic Response to Treatment: Stable Problem Text: 06/05/19: Her INR improved a little bit to 1.8 today, however, it is still subtherapeutic. I gave her a one-time dose of 5 mg of warfarin tonight. Tomorrow she should resume her usual dose of 2.5 mg daily unless her treating p hynic changed to something else. 06/04/19: Her INR remains subtherapeutic. It actually dropped a little with the extra Coumadin. I'm not going to adjust the dose tonight to see what the INR is tomorrow. If it continues to trend down, we'll need to increase the dose. 06/03/19: INR subtherapeutic 1.68. Will give her an additional 2.5 mg of Coumadin tonight (total 5 mg). Check INR tomorrow 06/02/19: INR 2.48. We will resume her Coumadin 06/01/19: Rate controlled. INR 3.5. Coumadin remains on hold 05/30/19: Rate controlled. Warfarin on hold, INR 3.77 this morning. We will continue to monitor (10) Hypertension Status: Chronic Response to Treatment: Stable Problem Text: 05/30/19: Pressures stable (11) Physical deconditioning Status: Chronic Discussed With: Patient, Family with Pt Consent Problem Specific Plan: Monitor Clinically Problem Text: She remains physically gait deconditioned and not safe for home. I anticipate remaining to make her SNF status soon. She will likely need some subacute rehabilitation. Plan/VTE VTE Prophylaxis Ordered?: Yes (Warfarin ) Plan Therapy: PT Disposition Will likely need Subacute Rehab once stable VS, I&O, 24H, Fishbone Vital Signs/I&O Vital Signs Date Time Temp Pulse Resp B/P (MAP) Pulse Ox O2 Delivery O2 Flow Rate FiO2 06/08/19 08:21 16 06/08/19 06:00 97.0 69 133/59 (83) 95 I&O- Last 24 Hours up to 6 AM 06/08/19 05:59 Intake Total 1195 ml Output Total 401 ml Balance 794 ml Laboratory Data 24H LABS Laboratory Tests 2 06/07/19 08:39: Nucleated Red Blood Cells % (auto) 0.2H 06/07/19 08:51: Prothrombin Time 25.3H, Prothromb Time International Ratio 2.32 06/07/19 09:28: Anion Gap 11, Glomerular Filtration Rate 19.3L, Blood Urea Nitrogen 70H, Creatinine 2.62H, Sodium Level 141, Potassium Level 5.0, Chloride Level 110H, Carbon Dioxide Level 20L, Calcium Level 8.1L 06/07/19 11:09: Bedside Glucose (Misc Panel) 146H 06/07/19 16:37: Bedside Glucose (Misc Panel) 139H 06/07/19 20:03: Bedside Glucose (Misc Panel) 110 06/08/19 05:34: Prothrombin Time 31.3H, Prothromb Time International Ratio 3.03, Anion Gap 7L, Glomerular Filtration Rate 17.8L, Blood Urea Nitrogen 66H, Creatinine 2.81H, Sodium Level 145, Potassium Level 4.6, Chloride Level 115H, Carbon Dioxide Level 23, Calcium Level 9.2 CBC/BMP Laboratory Tests 06/07/19 08:39 Red Blood Count 3.15 L, Mean Corpuscular Volume 102.2 H, Mean Corpuscular Hemoglobin 31.7, Mean Corpuscular Hemoglobin Concent 31.1 L, Red Cell Distribution Width 17.8 H 06/07/19 09:28 Calcium Level 8.1 L 06/08/19 05:34 Calcium Level 9.2 YUMIKO QUESADA PA-C Jun 08, 2019 08:35
[2019-06-08] MEDS ORDERED: MAALOX 30 ML SUSP *UDC PO PRN (08:45)
[2019-06-08] MEDS ORDERED: BISACODYL 5 MG TAB PO ONE (09:00)
[2019-06-08] MEDS ORDERED: MAALOX 30 ML SUSP *UDC PO ONE (09:00)
[2019-06-08] MEDS: SENOKOT S TAB PO SCH (10:59)
[2019-06-08] MEDS: TAMSULOSIN 0.4 MG CAP PO SCH (11:00)
[2019-06-08] MEDS: FERROUS GLUCONATE 324 MG TAB PO SCH (11:00)
[2019-06-08] MEDS: PANTOPRAZOLE 40MG TAB (PROTONIX) PO SCH (11:00)
[2019-06-08] MEDS: CETIRIZINE (ZyrTEC) 10 MG TAB PO SCH (11:00)
[2019-06-08] MEDS: MONTELUKAST 10 MG TAB PO SCH (11:00)
[2019-06-08] MEDS: FLUCONAZOLE 100 MG TAB PO SCH (11:00)
[2019-06-08] MEDS: DOCUSATE SODIUM 100 MG CAP PO SCH ×2 (11:00→22:11)
[2019-06-08] MEDS: MAGNESIUM OXIDE 400 MG TAB (MAG-OX) PO SCH (11:00)
[2019-06-08] MEDS: ONDANSETRON 4 MG TAB (S0181) PO PRN (11:00)
[2019-06-08] MEDS: DIGOXIN 0.25 MG TAB PO SCH (11:03)
[2019-06-08] MEDS: CARVedilol 6.25 MG TAB PO SCH ×2 (11:05→22:11)
[2019-06-08] MEDS: FLUTICASONE PROP 0.05% NASAL SPRAY 16 GM (FLONASE) SCH (11:07)
[2019-06-08] MEDS: NYSTATIN 100,000 UNITS/GM TOPICAL PWD 15 GM TOP SCH ×2 (11:07→22:12)
[2019-06-08] MEDS: DARBEPOETIN 300 MCG/0.6 ML *NON-DIALYSIS* SYRINGE (J0881) SC SCH (13:21)
[2019-06-08 13:40] VITALS: BP 132/66
[2019-06-08 22:00] VITALS: BP 124/58
[2019-06-08] MEDS: LEVEMIR (INSULIN DETEMIR) 1 UNITS/0.01ML SC SCH (22:09)
[2019-06-08] MEDS: ATORVASTATIN 20 MG TAB PO SCH (22:11)
[2019-06-08] MEDS: GABAPENTIN 300 MG CAP PO SCH (22:11)
[2019-06-08] MEDS: LATANOPROST 0.005% OPHTH SOLN 2.5 ML OU SCH (22:12)
[2019-06-09] MEDS: ACETAMINOPH W/CODEINE #3 TAB UD PO PRN ×3 (00:23→18:20)
--- NOTE | 2019-06-09 05:46 | IPN ---
DATE: 06/08/2019 Mrs. Vargas is seen this morning on her bedside. She is sitting in the chair reading newspaper. She has complained of retrosternal discomfort, which is constant for the last couple of days. She has difficulty swallowing and has also lost her appetite. She denies any dyspnea or pleuritic-type of pain. She has no vomiting or diarrhea. PHYSICAL EXAMINATION: Temperature 97.0 degrees Fahrenheit, heart rate 70 per minute, and respiratory rate 20 per minute. Blood pressure 132/70 mmHg and oxygen saturation 95% on room air. Her urine output is not recorded accurately, and she has not been weighed for the last few days. Head is atraumatic. Neck is supple and jugular venous distention (JVD) difficult to be assessed. There is no oral thrush or ulcers. Heart sounds are regular. Lungs with few basilar crepitations. Abdomen obese, soft, and nontender, and bowel sounds are normal. Extremities without any cyanosis or clubbing. Lower leg edema is still about 2+. Neurologically, she is awake, alert, and at her baseline mentation. Patient had a chemistry done this morning, which showed sodium 145, potassium 4.6, CO2 of 23, BUN 66, and creatinine 2.81. Glucose 109 and calcium 9.2. PROBLEMS: 1. Acute renal failure superimposed on chronic kidney disease. No significant change in kidney function over the last 5 days, and her glomerular filtration rate (GFR) has been between 16 and 19 most of the time. Electrolytes are stable. We will need to monitor her kidney function closely as she remains at risk for requiring dialysis. 2. Hypervolemia. She was given one dose of bumetanide yesterday 1 mg, but urine output was not recorded accurately so we do not know how much urine she made. She has also not been weighed. I will have the nursing staff scan her bladder to rule out any possibility of urinary retention as she did have urinary retention previously. 3. Anemia. Her anemia is slowly improving, and she remains on Aranesp 300 mcg once a week. 4. Metabolic acidosis. Her acidosis has improved, and sodium bicarbonate is being stopped now. 5. Retrosternal discomfort and dysphagia. Most likely Clindamycin induced esophagitis. Clindamycin to be stopped and being treated symptomatically. MTDD
[2019-06-09] MEDS: CLINDAMYCIN 150 MG CAP PO SCH (05:48)
[2019-06-09 06:00] VITALS: BP 122/58
[2019-06-09 06:40] LABS: HEMATOCRIT 27.9 % (36.0-47.0); HEMOGLOBIN 8.6 g/dl (12.0-15.5); MEAN CORPUSCULAR HEMOGLOBIN 31.4 pg (27.0-33.0); MEAN CORPUSCULAR HGB CONC 30.8 g/dl (32.0-36.5); MEAN CORPUSCULAR VOLUME 101.8 fl (80.0-96.0); PLATELET COUNT, AUTOMATED 183 10^3/uL (150-450); RED BLOOD COUNT 2.74 10^6/uL (4.00-5.40)
[2019-06-09 06:51] LABS: INR 3.4; PROTHROMBIN TIME 34.3 SECONDS (11.8-14.0)
[2019-06-09 07:04] LABS: ALBUMIN 2.5 GM/DL (3.2-5.2); BILIRUBIN,TOTAL 0.4 MG/DL (0.2-1.0); CALCIUM LEVEL 8.7 MG/DL (8.8-10.2); CREATININE FOR GFR 3.21 MG/DL (0.55-1.30); GLOMERULAR FILTRATION RATE 15.3 (>45); POTASSIUM SERUM 4.5 MEQ/L (3.5-5.1)
[2019-06-09] MEDS: HumaLOG INSULIN (NovoLOG) PER UNIT SC SCH ×4 (07:30→20:49)
[2019-06-09] MEDS: SENOKOT S TAB PO SCH (08:23)
[2019-06-09] MEDS: LACTOBACILLUS ACIDOPHILUS CAP (BACID) PO SCH ×3 (08:23→17:29)
[2019-06-09] MEDS: PANTOPRAZOLE 40MG TAB (PROTONIX) PO SCH (08:23)
[2019-06-09] MEDS: DOCUSATE SODIUM 100 MG CAP PO SCH ×2 (08:23→20:47)
[2019-06-09] MEDS: TAMSULOSIN 0.4 MG CAP PO SCH (08:23)
[2019-06-09] MEDS: FLUCONAZOLE 100 MG TAB PO SCH (08:23)
[2019-06-09] MEDS: MONTELUKAST 10 MG TAB PO SCH (08:23)
[2019-06-09] MEDS: CETIRIZINE (ZyrTEC) 10 MG TAB PO SCH (08:23)
[2019-06-09] MEDS: CARVedilol 6.25 MG TAB PO SCH ×2 (08:23→20:48)
[2019-06-09] MEDS: SODIUM CHLORIDE NASAL 0.65% SPRAY BTL (OCEAN) PRN (08:24)
[2019-06-09] MEDS: NYSTATIN 100,000 UNITS/GM TOPICAL PWD 15 GM TOP SCH ×2 (08:24→20:48)
[2019-06-09] MEDS: FLUTICASONE PROP 0.05% NASAL SPRAY 16 GM (FLONASE) SCH (08:25)
--- NOTE | 2019-06-09 11:01 | IPNPDOC ---
Subjective Date Seen The patient was seen on 06/09/19. Subjective Chief Complaint/HPI Still with esophageal pain and dysphagia Constitutional: Denies: Chills, Fever Pulmonary: Denies: Dyspnea, Cough Cardiovascular: Denies: Chest Pain, Palpitations Gastrointestinal: Denies: Nausea, Vomiting, Abdominal Pain, Diarrhea, Constipation Objective Physical Examination General Exam: Positive: Alert, Cooperative, Mild Distress (holding emesis bag and holding erh epigastrum in discomfort) Eye Exam: Positive: Conjunctiva & lids normal; Negative: Sclera icteric ENT Exam: Positive: Mucous membr. moist/pink Neck Exam: Positive: Supple; Negative: Lymphadenopathy Chest Exam: Positive: Clear to auscultation, Diminished (secondary to obesity- hypoventilation syndrome); Negative: Rales, Rhonchi, Wheezing Heart Exam: Positive: Rate Normal, Irregular Rhythm, Murmurs Abdomen Exam: Positive: Normal bowel sounds, Soft; Negative: Tenderness Extremity Exam: Negative: Edema Psych Exam: Positive: Mood NL, Memory Intact, Oriented x 3 Assessment /Plan Problems (1) Epigastric pain Status: Acute Problem Text: 06/09 - Most likely related to esophagitis from the Clindamycin po. PPI and TUMs prn added yesterday. Give Maalox today and increase bowel care. Zofran as needed for nausea Diflucan started for potential esophageal candidiasis ( Renally dosed) Start Nystatin S & S Give further Maalox (2) Sialadenitis Status: Resolved Problem Specific Plan: Consult Specialist Problem Text: 06/07 - Now on po Clindamycin D#12 overall. Supposed to continue for 2 weeks, but Concern for Clindamycin induced interstitial nephritis - will stop Clinda and d/w ENT if need further abx 06/03/19: D/C IV Clindamycin today. Change to oral Cleocin for a total of 2 weeks per ENT recommendation 06/02/19: Post I and D Warthins duct and floor of mouth sepsis. She remains Afebrile today. Per ENT continue IV ABX for 48 hours while she is being medically stabilized and then consider 2 weeks of Outpatient oral Cleocin. Today will be 48 hours. D/C tomorrow 06/01/19: S/P stone extraction/suction. Patient doing much better. She is tolerating a soft diet. Day # 4 of clindamycin. I will discuss with attending discontinuation date of abx 05/31: patient to go to ENT office for attempt to remove stone from submandibular salivary gland and facilitate drainage this am. Hopefully this will improve pain 05/30/19: Pain persists. ENT was consulted. Dr. Brasher recommended to continue with abx, sialogogues and hydration, massage and heat. We may want to consider repeat study as patient is unable to eat or drink and pain is worse. Day #2 of Clindamycin (3) Acute on chronic kidney failure Status: Acute Problem Text: 06/09 - Creatinine continues to climb slightly after diuretic given 06/07. Now with some poor po intake as well - monitor trend ? interstitial nephritis from Clindamycin I will stop her Clindamycin - D/W ENT need for further abx. PVR ordered 06/08 - Diuretic restarted per Nephrology yesterday. Creatinine up slightly Cordon removed voiding well Nephrology following 06/06/19: Cr. 2.7. Baseline appears to run 2.4-2.7 06/05/19: Her creatinine continues to slowly improve. Continue to monitor. 06/04/19: Her creatinine is down to 3.03 today. This is certainly an improvement. We'll continue to monitor. 06/03/19: Renal function stable at present. Cordon catheter was placed as she was found to be in urinary retention. 06/02/19: Kidney function continues to trend down. Nephrology following. Lasix was restarted yesterday. Urine results pending 06/01/19: GFR down to 14.1, Cre 3.45. Baseline Cre ~2.5, Baseline GFR ~25. Nephrology consulted (4) CHF (congestive heart failure) Permanent Comment: 06/01/19: Echocardiogram shows grade 1 diastolic dysfunction Last Edited By: Bryant Arriaga MD on Jun 04, 2019 23:18 Status: Chronic Response to Treatment: Stable, Compensated Problem Text: 06/08 - Diuretic restarted yesterday (Bumex 1 mg x1 ) per nephrology for slight decompensation 06/04/19: Echo report shows grade 1 diastolic dysfunction as well as abno rmalities in most of the valves. Aortic valve seems to be most affected. 06/03/19: IV Lasix yesterday. ECHO results pending. Fluid restriction 06/02/19: Trace edema noted. Lasix restarted yesterday. Fluid restriction. EHCO scheduled for today 06/01/19: Looks well compensated today. Diuretics remain on hold. She has good oral intake. We will d/c IVF. We will continue to monitor 05/31: BUN/Creatinine higher. Lying supine w/o dyspnea. Looks dry. Will increase IV fluid rate to 100/hour until she can resume po intake. 05/30/19: Appears well compensated on exam. She remains on her diuretics. She is receiving gentle hydration with D5/NS. We will monitor closely> Actually she looks a little dry with reduced skin turgor, no edema and increasing BUN/Creat. Will stop diuretics for now. (5) Anemia Status: Chronic Response to Treatment: Stable Problem Text: Hemoglobin is relatively stable. We'll continue to watch the trend. 06/03/19: Hgb 8.8 today. We will continue to monitor 06/02/19: S/P 1 unit PRBC. Nephrology ordered dose of Aranesp 06/01/19: Hgb 7.5. Baseline ~8-10. Transfuse 1 unit PRBC, consent signed (6) Fissure in skin Status: Acute Response to Treatment: Improving, Controlled Discussed With: Nurse, Patient, Family with Pt Consent Problem Specific Plan: Monitor Clinically Problem Text: I think the InterDry is helping heal the area. Her pain is under better control today. (7) Constipation Problem Specific Plan: Monitor Clinically Problem Text: added on miralax, encouraged to get OOB. I ordered a half a bottle of mag citrate today followed by the other half in 4 hours if she has not had a bowel movement. Hopefully this will help clear up her constipation. I suspect this probably be where the mild elevation white count is coming from. Will monitor that carefully. (8) Diabetes mellitus with stage 4 chronic kidney disease GFR 15-29 Status: Chronic Response to Treatment: Stable Problem Text: 06/05/19: She is taking oral feeds just fine. She is on basal insulin with insulin sliding scale. 05/30/19: Patient is on D5/NS at 75/hr. Patient has been unable to eat or drink d/t mouth pain. BG this morning 139. Insulin was held d/t patient poor oral intake. We do want her to go hypoglycemic. Renal function appears fairly stable. Baseline Cre ~2.40-2.70, GFR ~20. We will continue to monitor (9) Atrial fibrillation Status: Chronic Response to Treatment: Stable Problem Text: 06/05/19: Her INR improved a little bit to 1.8 today, however, it is still subtherapeutic. I gave her a one-time dose of 5 mg of warfarin tonight. Tomorrow she should resume her usual dose of 2.5 mg daily unless her treating p hysicians changed to something else. 06/04/19: Her INR remains subtherapeutic. It actually dropped a little with the extra Coumadin. I'm not going to adjust the dose tonight to see what the INR is tomorrow. If it continues to trend down, we'll need to increase the dose. 06/03/19: INR subtherapeutic 1.68. Will give her an additional 2.5 mg of Coumadin tonight (total 5 mg). Check INR tomorrow 06/02/19: INR 2.48. We will resume her Coumadin 06/01/19: Rate controlled. INR 3.5. Coumadin remains on hold 05/30/19: Rate controlled. Warfarin on hold, INR 3.77 this morning. We will continue to monitor (10) Hypertension Status: Chronic Response to Treatment: Stable Problem Text: 05/30/19: Pressures stable (11) Physical deconditioning Status: Chronic Discussed With: Patient, Family with Pt Consent Problem Specific Plan: Monitor Clinically Problem Text: She remains physically gait deconditioned and not safe for home. I anticipate remaining to make her SNF status soon. She will likely need some subacute rehabilitation. Plan/VTE VTE Prophylaxis Ordered?: Yes (Warfarin ) Plan Therapy: PT VS, I&O, 24H, Fishbone Vital Signs/I&O Vital Signs Date Time Temp Pulse Resp B/P (MAP) Pulse Ox O2 Delivery O2 Flow Rate FiO2 06/09/19 08:57 16 06/09/19 08:23 71 131/65 06/09/19 06:00 97.6 92 I&O- Last 24 Hours up to 6 AM 06/09/19 06:00 Intake Total 1110 ml Output Total 550 ml Balance 560 ml Laboratory Data 24H LABS Laboratory Tests 2 06/08/19 11:49: Bedside Glucose (Misc Panel) 133H 06/08/19 17:06: Bedside Glucose (Misc Panel) 106 06/08/19 20:44: Bedside Glucose (Misc Panel) 106 06/09/19 05:28: Bedside Glucose (Misc Panel) 94 06/09/19 06:27: Nucleated Red Blood Cells % (auto) 0.2H, Prothrombin Time 34.3H, Prothromb Time International Ratio 3.40, Anion Gap 10, Glomerular Filtration Rate 15.3L, Blood Urea Nitrogen 73H, Creatinine 3.21H, Sodium Level 144, Potassium Level 4.5, Chloride Level 112H, Carbon Dioxide Level 22, Calcium Level 8.7L, Aspartate Amino Transf (AST/SGOT) 31, Alanine Aminotransferase (ALT/SGPT) 10L, Alkaline Phosphatase 193H, Total Bilirubin 0.4, Total Protein 7.0, Albumin 2.5L, Albumin/Globulin Ratio 0.56L CBC/BMP Laboratory Tests 06/09/19 06:27 Red Blood Count 2.74 L, Mean Corpuscular Volume 101.8 H, Mean Corpuscular Hemoglobin 31.4, Mean Corpuscular Hemoglobin Concent 30.8 L, Red Cell Distribution Width 17.9 H, Calcium Level 8.7 L, Aspartate Amino Transf (AST/SGOT) 31, Alanine Aminotransferase (ALT/SGPT) 10 L, Alkaline Phosphatase 193 H, Total Bilirubin 0.4, Total Protein 7.0, Albumin 2.5 L YUMIKO QUESADA PA-C Jun 09, 2019 11:01
[2019-06-09] MEDS: NYSTATIN 500,000 U/5 ML SUSP UDC SS SCH ×3 (12:34→23:40)
[2019-06-09 14:00] VITALS: BP 116/54
[2019-06-09 18:00] VITALS: BP 114/57
--- NOTE | 2019-06-09 20:45 | IPN ---
DATE: 06/09/2019 Mrs. Jacome seen this morning on her bedside. She is sitting in the chair. She continues to have complaint of dysphagia and not been eating or drinking much. She denies any fever or chills. She also has decreased urine output and I had ordered a bladder scan which has not been done up until my arrival. I have advised the nursing staff to perform it now. PHYSICAL EXAMINATION Temperature 98 degrees Fahrenheit, heart rate 70 per minute and respiratory rate 18 per minute. Blood pressure 116/54 mmHg and oxygen saturation 95% on room air. Head is atraumatic. Neck is supple and without jugular venous distention (JVD) sitting upright. No oral thrush or ulcers noted. Heart: Sounds are distant and regular. Lungs with diminished breath sounds at bases, but no wheezing or rales audible. Abdomen: Obese, soft and nontender and bowel sounds are normal. Extremities: Without any cyanosis or clubbing. Lower extremity edema is at least 1+. Neurologically she seems at her baseline mentation without a focal deficit. Today's labs show WBC count 10.0, hemoglobin 8.6 and hematocrit 27.9. Platelets 183. Sodium 144, potassium 4.5, CO2 22, BUN 73 and creatinine 3.21. Glucose 99 and calcium 8.7. PROBLEMS: 1. Acute renal failure superimposed on chronic kidney disease. The patient did have significant acute renal failure which was improving gradually up until 2 days ago when serum creatinine came down to 2.6 and then since then it has gradually started to increase again. Today's creatinine is up to 3.21. I am concerned about the possibility of acute interstitial nephritis related to clindamycin or prerenal azotemia due to decreased oral intake. The patient is being encouraged to increase her oral intake of fluid. No diuretic is being given. I have discussed with the primary care team to consider stopping her clindamycin as the patient also has developed significant esophagitis and has difficulty swallowing. 2. Anemia. Her anemia is essentially unchanged and we will continue with Aranesp 300 mcg once a week. 3. Dysphagia, most likely related to use of clindamycin. Primary team is considering to stop clindamycin and treat her symptomatically.
[2019-06-09] MEDS: GABAPENTIN 300 MG CAP PO SCH (20:47)
[2019-06-09] MEDS: ATORVASTATIN 20 MG TAB PO SCH (20:47)
[2019-06-09] MEDS: LEVEMIR (INSULIN DETEMIR) 1 UNITS/0.01ML SC SCH (20:48)
[2019-06-09] MEDS: LATANOPROST 0.005% OPHTH SOLN 2.5 ML OU SCH (20:49)
[2019-06-09 22:00] VITALS: BP 120/52
[2019-06-10] MEDS: ACETAMINOPH W/CODEINE #3 TAB UD PO PRN ×3 (02:17→21:59)
[2019-06-10] MEDS: NYSTATIN 500,000 U/5 ML SUSP UDC SS SCH ×3 (05:51→17:03)
[2019-06-10 06:00] VITALS: BP 123/57
[2019-06-10 06:55] LABS: INR 2.93; PROTHROMBIN TIME 30.5 SECONDS (11.8-14.0)
[2019-06-10 07:09] LABS: ALBUMIN 2.5 GM/DL (3.2-5.2); BILIRUBIN,TOTAL 0.5 MG/DL (0.2-1.0); CALCIUM LEVEL 8.8 MG/DL (8.8-10.2); CREATININE FOR GFR 3.52 MG/DL (0.55-1.30); GLOMERULAR FILTRATION RATE 13.7 (>45); POTASSIUM SERUM 4.5 MEQ/L (3.5-5.1); TOTAL PROTEIN 6.9 GM/DL (6.4-8.2)
[2019-06-10] MEDS: HumaLOG INSULIN (NovoLOG) PER UNIT SC SCH ×4 (07:30→20:20)
[2019-06-10] MEDS ORDERED: NS 1,000 ML IV ONE (08:00)
[2019-06-10] MEDS: PANTOPRAZOLE 40MG TAB (PROTONIX) PO SCH (09:28)
[2019-06-10] MEDS: LACTOBACILLUS ACIDOPHILUS CAP (BACID) PO SCH ×3 (09:28→17:03)
[2019-06-10] MEDS: SENOKOT S TAB PO SCH (09:28)
[2019-06-10] MEDS: MAGNESIUM OXIDE 400 MG TAB (MAG-OX) PO SCH (09:28)
[2019-06-10] MEDS: FLUCONAZOLE 100 MG TAB PO SCH (09:29)
[2019-06-10] MEDS: DIGOXIN 0.25 MG TAB PO SCH (09:29)
[2019-06-10] MEDS: FERROUS GLUCONATE 324 MG TAB PO SCH (09:29)
[2019-06-10] MEDS: CARVedilol 6.25 MG TAB PO SCH ×2 (09:29→22:00)
[2019-06-10] MEDS: MONTELUKAST 10 MG TAB PO SCH (09:29)
[2019-06-10] MEDS: DOCUSATE SODIUM 100 MG CAP PO SCH ×2 (09:29→22:00)
[2019-06-10] MEDS: TAMSULOSIN 0.4 MG CAP PO SCH (09:29)
[2019-06-10] MEDS: CETIRIZINE (ZyrTEC) 10 MG TAB PO SCH (09:29)
[2019-06-10] MEDS: NYSTATIN 100,000 UNITS/GM TOPICAL PWD 15 GM TOP SCH ×2 (09:30→22:00)
[2019-06-10] MEDS: FLUTICASONE PROP 0.05% NASAL SPRAY 16 GM (FLONASE) SCH (09:30)
[2019-06-10 14:00] VITALS: BP 118/52
[2019-06-10 14:55] LABS: ALBUMIN 2.4 GM/DL (3.2-5.2); CALCIUM LEVEL 8.2 MG/DL (8.8-10.2); CREATININE FOR GFR 3.42 MG/DL (0.55-1.30); GLOMERULAR FILTRATION RATE 14.2 (>45); PHOSPHORUS LEVEL 4.9 MG/DL (2.5-4.9); POTASSIUM SERUM 4.7 MEQ/L (3.5-5.1)
--- NOTE | 2019-06-10 21:01 | IPN ---
DATE: 06/10/2019 Mrs. Jacome is seen this morning on her bedside. She is sitting in the chair drinking liquids and reports that her retrosternal pain and dysphagia have slightly improved, and she is able to swallow liquids better. Her clindamycin was stopped yesterday. The patient denies any diarrhea or abdominal pain. She has no dyspnea or chest pain. I had ordered a fluid bolus this morning; however, nursing staff could not get an IV access and has not been able to get the fluid bolus. PHYSICAL EXAMINATION: Temperature 97 degrees Fahrenheit, heart rate 70 per minute and respiratory rate 20 per minute. Blood pressure 123/57 mmHg and oxygen saturation 93% on room air. Head is atraumatic. Neck is supple and without jugular venous distention (JVD) or thyroid enlargement. Heart sounds are regular and lungs clear to auscultation. Abdomen: Obese, soft and nontender. Bowel sounds are normal. Extremities have no cyanosis or clubbing. Lower extremity edema is unchanged and at least 1+. Neurologically she is awake, alert and oriented times three. Today's labs show sodium 143, potassium 4.5, CO2 of 23, BUN 74 and creatinine 3.52, glucose 98 and calcium 8.8. PROBLEM #1: Acute renal failure superimposed on chronic kidney disease. The patient has a baseline chronic kidney disease stage IV and had developed acute renal failure related to acute infection. However, kidney function was improving up until June 07, 2019 when creatinine came down to 2.6. Her baseline creatinine is about 2.5. Now for last 3 days, her creatinine is gradually going up and today it is up to 3.52. It is important to note that she has not been able to eat or drink for the last 3 days due to esophagitis. I feel that she is slightly volume depleted and had ordered normal saline, one liter bolus; however, the patient has poor peripheral access. She is able to drink better now, and I have encouraged her to increase her oral intake today. A repeat chemistry from 2:00 p.m. is now back and showed slight improvement in her BUN and creatinine to 72 and 3.42 respectively. I think that this is very encouraging, and her kidney function is likely to improve over the next few days with increased fluid intake. We will continue to monitor her closely. PROBLEM #2: Anemia, stable and she remains on Aranesp. There was no CBC done today. PROBLEM #3: Esophagitis. Most likely related to clindamycin, and her symptoms seem to be improving today. She is receiving symptomatic treatment and proton pump inhibitor (PPI).
[2019-06-10] MEDS: LEVEMIR (INSULIN DETEMIR) 1 UNITS/0.01ML SC SCH (21:58)
[2019-06-10] MEDS: ATORVASTATIN 20 MG TAB PO SCH (21:59)
[2019-06-10] MEDS: GABAPENTIN 300 MG CAP PO SCH (21:59)
[2019-06-10 22:00] VITALS: BP 160/84
[2019-06-10] MEDS: LATANOPROST 0.005% OPHTH SOLN 2.5 ML OU SCH (22:00)
[2019-06-11] MEDS: NYSTATIN 500,000 U/5 ML SUSP UDC SS SCH ×4 (00:35→18:20)
[2019-06-11 06:00] VITALS: BP 149/65
[2019-06-11 07:32] LABS: INR 2.28
[2019-06-11 07:46] LABS: ALBUMIN 2.6 GM/DL (3.2-5.2); BILIRUBIN,TOTAL 0.9 MG/DL (0.2-1.0); CALCIUM LEVEL 8.2 MG/DL (8.8-10.2); CREATININE FOR GFR 3.26 MG/DL (0.55-1.30); POTASSIUM SERUM 4.7 MEQ/L (3.5-5.1); TOTAL PROTEIN 6.6 GM/DL (6.4-8.2)
[2019-06-11] MEDS: SENOKOT S TAB PO SCH (08:43)
[2019-06-11] MEDS: HumaLOG INSULIN (NovoLOG) PER UNIT SC SCH ×4 (08:43→21:00)
[2019-06-11] MEDS: TAMSULOSIN 0.4 MG CAP PO SCH (08:43)
[2019-06-11] MEDS: CETIRIZINE (ZyrTEC) 10 MG TAB PO SCH (08:44)
[2019-06-11] MEDS: PANTOPRAZOLE 40MG TAB (PROTONIX) PO SCH (08:44)
[2019-06-11] MEDS: DOCUSATE SODIUM 100 MG CAP PO SCH ×2 (08:44→21:00)
[2019-06-11] MEDS: LACTOBACILLUS ACIDOPHILUS CAP (BACID) PO SCH ×3 (08:44→18:20)
[2019-06-11] MEDS: MONTELUKAST 10 MG TAB PO SCH (08:44)
[2019-06-11] MEDS: CARVedilol 6.25 MG TAB PO SCH ×2 (08:47→21:51)
[2019-06-11] MEDS: FLUTICASONE PROP 0.05% NASAL SPRAY 16 GM (FLONASE) SCH (08:49)
[2019-06-11] MEDS: NYSTATIN 100,000 UNITS/GM TOPICAL PWD 15 GM TOP SCH ×2 (09:00→21:52)
[2019-06-11 10:00] VITALS: BP 130/53
[2019-06-11] MEDS ORDERED: BISACODYL 10 MG SUPP PR ONE (11:00)
[2019-06-11] MEDS ORDERED: NS 500 ML IV ONE (11:15)
[2019-06-11] MEDS: MIRALAX *UNIT DOSE* 17GM PACKET PO SCH ×2 (12:03→21:00)
[2019-06-11 14:00] VITALS: BP 134/54
--- NOTE | 2019-06-11 14:31 | IPN ---
DATE: 06/11/2019 SUBJECTIVE: The patient was seen and examined at the bedside this morning. She is afebrile, hemodynamically stable. She was given a dose of 1 liter normal saline bolus yesterday. There is slight improvement in the renal function, creatinine is down to 3.2 today. The patient is complaining of constipation and no bowel movement for the last 2 days and she is requesting some medications to help with that. She reports that dysphagia is improving and she is able to tolerate the liquids. OBJECTIVE: Vital signs: Temperature is 97.6 degrees Fahrenheit, blood pressure 130/56, pulse is 70, respiratory rate of 70, saturating 95% on room air. Intake and output: Urine output recorded is 650 mL. Weight on the bed scale is not available. PHYSICAL EXAMINATION: General: The patient is awake, alert, oriented times three, morbidly obese, sitting in the sofa. Head and neck exam: Extraocular muscles intact. Pupils equally round and reactive to light. Mucous membranes are moist. Neck is supple. There is no jugular venous distention (JVD). Cardiovascular: S1, S2 regular rate. No edema of the bilateral lower extremities. Respiratory: Chest is clear to auscultation bilaterally. Bilateral equal air entry. No rales or rhonchi. Abdomen: Soft, obese, positive bowel sounds. Nontender. No organomegaly. Musculoskeletal: No clubbing or cyanosis. Pulses are 2+. Central nervous system (PLANT MAINTENANCE MANAGER):: No focal deficit. Power is 5/5 in all extremities. LABORATORY REVIEW: CBC is from June 09. BMP this morning showed sodium 142, potassium 4.7, chloride 112, bicarbonate 21, BUN 76, creatinine is 3.2, calcium is 8.2, AST 29, ALT is 12, alkaline phosphatase 228, albumin is 2.6. CURRENT INPATIENT MEDICATIONS: The patient's medications were all reviewed by me. The patient was given a dose of normal saline 1 liter yesterday. I have ordered another normal saline bolus 500 mL. I have also started the patient on MiraLax 1 packet by mouth twice a day times four doses, and I have ordered Dulcolax suppository. ASSESSMENT/PLAN: 1. Acute kidney injury superimposed on chronic kidney disease stage IV. Patient's baseline creatinine is 2.5. She was unable to hydrate herself because of esophagitis. She was given IV fluids yesterday, creatinine is coming down to 3.2. I have ordered another dose of 500 mL normal saline bolus. Continue to encourage oral hydration. 2. Esophagitis. Clindamycin has been stopped. The patient is on fluconazole and she is getting proton pump inhibitor as well. 3. Constipation. I have ordered MiraLax and Dulcolax. 4. Anemia and chronic kidney disease. Iron levels checked during this admission showed mild iron deficiency. Latest hemoglobin is 8.6. She is getting ferrous gluconate every other day. The patient is also getting Aranesp 300 mcg subcutaneously on Wednesdays.
--- NOTE | 2019-06-11 15:22 | IPNPDOC ---
Subjective Date Seen The patient was seen on 06/11/19. Subjective Chief Complaint/HPI improved appetite Constitutional: Denies: Chills Eyes: Denies: Pain, Vision change Skin: Denies: Rash Pulmonary: Denies: Dyspnea, Cough Cardiovascular: Denies: Chest Pain, Palpitations Gastrointestinal: Denies: Nausea, Vomiting Objective Physical Examination General Exam: Positive: Alert, Cooperative, Mild Distress (holding emesis bag and holding erh epigastrum in discomfort) Eye Exam: Positive: Conjunctiva & lids normal; Negative: Sclera icteric ENT Exam: Positive: Mucous membr. moist/pink Neck Exam: Positive: Supple; Negative: Lymphadenopathy Chest Exam: Positive: Clear to auscultation, Diminished (secondary to obesity- hypoventilation syndrome); Negative: Rales, Rhonchi, Wheezing Heart Exam: Positive: Rate Normal, Irregular Rhythm, Murmurs Abdomen Exam: Positive: Normal bowel sounds, Soft; Negative: Tenderness Extremity Exam: Negative: Edema Psych Exam: Positive: Mood NL, Memory Intact, Oriented x 3 Assessment /Plan Problems (1) Epigastric pain Status: Acute Problem Text: Most likely related to esophagitis from the Clindamycin po. improving on panto 40 c Tums/ondan prn Zofran (2) Sialadenitis Status: Resolved Problem Specific Plan: Consult Specialist Problem Text: 06/07 D12/14 clinda-held 2 PIPPA, ? secondary IN 06/02/19: Post I and D Warthins duct and floor of mouth sepsis. She remains Afebrile today. Per ENT continue IV ABX for 48 hours while she is being medically stabilized and then consider 2 weeks of Outpatient oral Cleocin. Today will be 48 hours. D/C tomorrow 06/01/19: S/P stone extraction/suction. Patient doing much better. She is tolerating a soft diet. Day # 4 of clindamycin. I will discuss with attending discontinuation date of abx 05/31: patient to go to ENT office for attempt to remove stone from submandibular salivary gland and facilitate drainage this am. Hopefully this will improve pain 05/30/19: Pain persists. ENT was consulted. Dr. Brasher recommended to continue with abx, sialogogues and hydration, massage and heat. We may want to consider repeat study as patient is unable to eat or drink and pain is worse. Day #2 of Clindamycin (3) Acute on chronic kidney failure Status: Acute Problem Text: baseline cr 2.5 06/11 stable at 76/3.3, 4.7 c hydration (4) CHF (congestive heart failure) Permanent Comment: 06/01/19: Echocardiogram shows grade 1 diastolic dysfunction Last Edited By: Bryant Arriaga MD on Jun 04, 2019 23:18 Status: Chronic Response to Treatment: Stable, Compensated Problem Text: Euvolemic off bumet (5) Anemia Status: Chronic Response to Treatment: Stable Problem Text: 2 CKD hgb 8.6 06/01 sp Aranesp 300 (6) Constipation Problem Specific Plan: Monitor Clinically Problem Text: added on miralax, encouraged to get OOB. I ordered a half a bottle of mag citrate today followed by the other half in 4 hours if she has not had a bowel movement. Hopefully this will help clear up her constipation. I suspect this probably be where the mild elevation white count is coming from. Will monitor that carefully. (7) Diabetes mellitus with stage 4 chronic kidney disease GFR 15-29 Status: Chronic Response to Treatment: Stable Problem Text: 06/05/19: She is taking oral feeds just fine. She is on basal insulin with insulin sliding scale. 05/30/19: Patient is on D5/NS at 75/hr. Patient has been unable to eat or drink d/t mouth pain. BG this morning 139. Insulin was held d/t patient poor oral intake. We do want her to go hypoglycemic. Renal function appears fairly stable. Baseline Cre ~2.40-2.70, GFR ~20. We will continue to monitor (8) Atrial fibrillation Status: Chronic Response to Treatment: Stable Problem Text: RC c HD carve, dig 250 MWF (06/02 0.8) VKA for AC 06/11 INR 2.3 (9) Hypertension Status: Chronic Response to Treatment: Stable Problem Text: stable on carve 6.25 BID (10) Physical deconditioning Status: Chronic Discussed With: Patient, Family with Pt Consent Problem Specific Plan: Monitor Clinically Problem Text: 06/10 safe for dc home, at "maximal" rehab potential Plan/VTE VTE Prophylaxis Ordered?: Yes (Warfarin ) Plan Therapy: PT VS, I&O, 24H, Fishbone Vital Signs/I&O Vital Signs Date Time Temp Pulse Resp B/P (MAP) Pulse Ox O2 Delivery O2 Flow Rate FiO2 06/11/19 10:00 97.6 70 17 130/53 (78) 95 06/10/19 22:29 3.0 I&O- Last 24 Hours up to 6 AM 06/11/19 05:59 Intake Total 2880 ml Output Total 1200 ml Balance 1680 ml Laboratory Data 24H LABS Laboratory Tests 2 06/10/19 16:42: Bedside Glucose (Misc Panel) 99 06/10/19 19:47: Bedside Glucose (Misc Panel) 132H 06/11/19 06:48: Prothrombin Time 25.0H, Prothromb Time International Ratio 2.28, Anion Gap 9, Glomerular Filtration Rate 15.0L, Blood Urea Nitrogen 76H, Creatinine 3.26H, Sodium Level 142, Potassium Level 4.7, Chloride Level 112H, Carbon Dioxide Level 21, Calcium Level 8.2L, Aspartate Amino Transf (AST/SGOT) 29, Alanine Aminotransferase (ALT/SGPT) 12, Alkaline Phosphatase 228H, Total Bilirubin 0.9#, Total Protein 6.6, Albumin 2.6L, Albumin/Globulin Ratio 0.65L 06/11/19 11:28: Bedside Glucose (Misc Panel) 138H CBC/BMP Laboratory Tests 06/11/19 06:48 Calcium Level 8.2 L, Aspartate Amino Transf (AST/SGOT) 29, Alanine Aminotransferase (ALT/SGPT) 12, Alkaline Phosphatase 228 H, Total Bilirubin 0.9 #, Total Protein 6.6, Albumin 2.6 L Will Steiner M.D. Jun 11, 2019 15:22
[2019-06-11] MEDS: ACETAMINOPH W/CODEINE #3 TAB UD PO PRN (17:28)
[2019-06-11 18:00] VITALS: BP 132/61
[2019-06-11] MEDS: GABAPENTIN 300 MG CAP PO SCH (21:51)
[2019-06-11] MEDS: ATORVASTATIN 20 MG TAB PO SCH (21:51)
[2019-06-11] MEDS: LATANOPROST 0.005% OPHTH SOLN 2.5 ML OU SCH (21:52)
[2019-06-11] MEDS: LEVEMIR (INSULIN DETEMIR) 1 UNITS/0.01ML SC SCH (21:52)
[2019-06-11 22:00] VITALS: BP 130/62
[2019-06-12] MEDS: NYSTATIN 500,000 U/5 ML SUSP UDC SS SCH ×4 (00:32→17:39)
[2019-06-12 02:00] VITALS: BP 133/62
[2019-06-12 06:00] VITALS: BP 138/63
[2019-06-12 06:57] LABS: BASO # 0.1 10^3/uL (0.0-0.2); BASO % 0.7 % (0.0-1.0); EOS # 0.4 10^3/uL (0.0-0.5); EOS % 5.8 % (0.0-3.0); HEMATOCRIT 27.9 % (36.0-47.0); HEMOGLOBIN 8.4 g/dl (12.0-15.5); LYMPH # 0.9 10^3/uL (1.5-5.0); LYMPH % 11.5 % (24.0-44.0); MEAN CORPUSCULAR HEMOGLOBIN 30.8 pg (27.0-33.0); MEAN CORPUSCULAR HGB CONC 30.1 g/dl (32.0-36.5); MEAN CORPUSCULAR VOLUME 102.2 fl (80.0-96.0); MONO # 0.6 10^3/uL (0.0-0.8); MONO % 8.4 % (0.0-5.0); NEUTROPHILS # 5.1 10^3/uL (1.5-8.5); NEUTROPHILS % 69.3 % (36.0-66.0); PLATELET COUNT, AUTOMATED 180 10^3/uL (150-450); RED BLOOD COUNT 2.73 10^6/uL (4.00-5.40); WHITE BLOOD COUNT 7.4 10^3/uL (4.0-10.0)
[2019-06-12 07:05] LABS: INR 1.89; PROTHROMBIN TIME 21.4 SECONDS (11.8-14.0)
[2019-06-12] MEDS: HumaLOG INSULIN (NovoLOG) PER UNIT SC SCH ×4 (07:30→20:39)
[2019-06-12 08:42] LABS: ALBUMIN 2.4 GM/DL (3.2-5.2); BILIRUBIN,TOTAL 0.6 MG/DL (0.2-1.0); CALCIUM LEVEL 8.4 MG/DL (8.8-10.2); CREATININE FOR GFR 3.22 MG/DL (0.55-1.30); DIGOXIN LEVEL 1.4 NG/ML (0.5-2.0); GLOMERULAR FILTRATION RATE 15.2 (>45); POTASSIUM SERUM 4.5 MEQ/L (3.5-5.1)
[2019-06-12] MEDS: TAMSULOSIN 0.4 MG CAP PO SCH (09:06)
[2019-06-12] MEDS: LACTOBACILLUS ACIDOPHILUS CAP (BACID) PO SCH ×3 (09:06→17:39)
[2019-06-12] MEDS: DOCUSATE SODIUM 100 MG CAP PO SCH ×2 (09:07→21:27)
[2019-06-12] MEDS: NYSTATIN 100,000 UNITS/GM TOPICAL PWD 15 GM TOP SCH ×2 (09:07→21:30)
[2019-06-12] MEDS: MONTELUKAST 10 MG TAB PO SCH (09:07)
[2019-06-12] MEDS: MIRALAX *UNIT DOSE* 17GM PACKET PO SCH ×2 (09:07→21:29)
[2019-06-12] MEDS: PANTOPRAZOLE 40MG TAB (PROTONIX) PO SCH (09:07)
[2019-06-12] MEDS: CETIRIZINE (ZyrTEC) 10 MG TAB PO SCH (09:07)
[2019-06-12] MEDS: FERROUS GLUCONATE 324 MG TAB PO SCH (09:07)
[2019-06-12] MEDS: SENOKOT S TAB PO SCH (09:07)
[2019-06-12] MEDS: MAGNESIUM OXIDE 400 MG TAB (MAG-OX) PO SCH (09:07)
[2019-06-12] MEDS: FLUTICASONE PROP 0.05% NASAL SPRAY 16 GM (FLONASE) SCH (09:09)
[2019-06-12] MEDS: CARVedilol 6.25 MG TAB PO SCH ×2 (09:10→21:29)
[2019-06-12 10:00] VITALS: BP 134/64
[2019-06-12] MEDS: ACETAMINOPH W/CODEINE #3 TAB UD PO PRN (11:22)
[2019-06-12 14:00] VITALS: BP 137/61
--- NOTE | 2019-06-12 15:30 | IPNPDOC ---
Subjective Date Seen The patient was seen on 06/12/19. Subjective Chief Complaint/HPI no abdominal pain Constitutional: Denies: Chills Eyes: Denies: Pain Skin: Denies: Lesions Pulmonary: Denies: Dyspnea Cardiovascular: Denies: Chest Pain, Palpitations Gastrointestinal: Denies: Nausea, Vomiting Genitourinary: Denies: Dysuria, Frequency Objective Physical Examination General Exam: Positive: Alert, Cooperative, Mild Distress (holding emesis bag and holding erh epigastrum in discomfort) Eye Exam: Positive: Conjunctiva & lids normal; Negative: Sclera icteric ENT Exam: Positive: Mucous membr. moist/pink Neck Exam: Positive: Supple; Negative: Lymphadenopathy Chest Exam: Positive: Clear to auscultation, Diminished (secondary to obesity-h ypoventilation syndrome); Negative: Rales, Rhonchi, Wheezing Heart Exam: Positive: Rate Normal, Irregular Rhythm, Murmurs Abdomen Exam: Positive: Normal bowel sounds, Soft; Negative: Tenderness Extremity Exam: Positive: Edema (2 mm B PTE) Psych Exam: Positive: Mood NL, Memory Intact, Oriented x 3 Assessment /Plan Problems (1) Epigastric pain Status: Acute Problem Specific Plan: Consult Specialist Problem Text: Resolved on panto 40 c Tums/ondan prn Zofran most likely related to esophagitis from the Clindamycin po. (2) Sialadenitis Status: Resolved Problem Specific Plan: Consult Specialist Problem Text: 06/07 D12/14 clinda-held 2 PIPPA, ? secondary IN 06/02/19: Post I and D Warthins duct and floor of mouth sepsis. She remains Afebrile today. Per ENT continue IV ABX for 48 hours while she is being medically stabilized and then consider 2 weeks of Outpatient oral Cleocin. Today will be 48 hours. D/C tomorrow 06/01/19: S/P stone extraction/suction. Patient doing much better. She is to lerating a soft diet. Day # 4 of clindamycin. I will discuss with attending discontinuation date of abx 05/31: patient to go to ENT office for attempt to remove stone from submandibular salivary gland and facilitate drainage this am. Hopefully this will improve pain 05/30/19: Pain persists. ENT was consulted. Dr. Brasher recommended to continue with abx, sialogogues and hydration, massage and heat. We may want to consider repeat study as patient is unable to eat or drink and pain is worse. Day #2 of Clindamycin (3) Acute on chronic kidney failure Status: Acute Problem Text: baseline cr 2.5 06/12 63/3.2, 4.5-Nephro placed murry to monitor UOP (patient was retaining ~100 cc urine), remains on tamsul 0.4 06/11 stable at 76/3.3, 4.7 c hydration (4) CHF (congestive heart failure) Permanent Comment: 06/01/19: Echocardiogram shows grade 1 diastolic dysfunction Last Edited By: Byrant Arriaga MD on Jun 04, 2019 23:18 Status: Chronic Response to Treatment: Stable, Compensated Problem Text: Remains off HD torse 40/10 c mild decomp by PE 06/03 BNP 3173 (5) Anemia Status: Chronic Response to Treatment: Stable Problem Text: 2 CKD hgb 8.6 06/01 sp Aranesp 300 q7D/ Fe gluc QOD (6) Constipation Problem Specific Plan: Monitor Clinically Problem Text: added on miralax, encouraged to get OOB. I ordered a half a bottle of mag citrate today followed by the other half in 4 hours if she has not had a bowel movement. Hopefully this will help clear up her constipation. I suspect this probably be where the mild elevation white count is coming from. Will monitor that carefully. (7) Diabetes mellitus with stage 4 chronic kidney disease GFR 15-29 Status: Chronic Response to Treatment: Stable Problem Text: HD glar 65 c AC TID SS U-500 06/12 given AC BG 89-104, decreased det by 20% 46 to 37 (8) Atrial fibrillation Status: Chronic Response to Treatment: Stable Problem Text: RC c HD carve, dig 125 MWF 06/12 dig 1.4 on 250 MWF, therefore, held dose and decreased to 125 MWF VKA for AC 06/12 1.9 06/11 INR 2.3 on HD VKA 5 MF/2.5 ROW (9) Hypertension Status: Chronic Response to Treatment: Stable Problem Text: stable on carve 6.25 BID (10) Physical deconditioning Status: Chronic Discussed With: Patient, Family with Pt Consent Problem Specific Plan: Monitor Clinically Problem Text: 06/10 safe for dc home, at "maximal" rehab potential Plan/VTE VTE Prophylaxis Ordered?: Yes (Warfarin ) Plan Therapy: PT VS, I&O, 24H, Fishbone Vital Signs/I&O Vital Signs Date Time Temp Pulse Resp B/P (MAP) Pulse Ox O2 Delivery O2 Flow Rate FiO2 06/12/19 14:00 97.7 68 18 137/61 (86) 94 06/10/19 22:29 3.0 I&O- Last 24 Hours up to 6 AM 06/12/19 06:00 Intake Total 1740 ml Output Total 600 ml Balance 1140 ml Laboratory Data 24H LABS Laboratory Tests 2 06/11/19 16:35: Bedside Glucose (Misc Panel) 89 06/11/19 21:03: Bedside Glucose (Misc Panel) 114 06/12/19 06:31: Immature Granulocyte % (Auto) 4.3H, White Blood Count 7.4, Red Blood Count 2.73L, Hemoglobin 8.4L, Hematocrit 27.9L, Mean Corpuscular Volume 102.2H, Mean Corpuscular Hemoglobin 30.8, Mean Corpuscular Hemoglobin Concent 30.1L, Red Cell Distribution Width 17.7H, Platelet Count 180, Neutrophils (%) (Auto) 69.3H, Lymphocytes (%) (Auto) 11.5L, Monocytes (%) (Auto) 8.4H, Eosinophils (%) (Auto) 5.8H, Basophils (%) (Auto) 0.7, Neutrophils # (Auto) 5.1, Lymphocytes # (Auto) 0.9L, Monocytes # (Auto) 0.6, Eosinophils # (Auto) 0.4, Basophils # (Auto) 0.1, Nucleated Red Blood Cells % (auto) 0.4H, Prothrombin Time 21.4H, Prothromb Time International Ratio 1.89, Anion Gap 7L, Glomerular Filtration Rate 15.2L, Blood Urea Nitrogen 63H, Creatinine 3.22H, Sodium Level 144, Potassium Level 4.5, Chloride Level 117H, Carbon Dioxide Level 20L, Calcium Level 8.4L, Aspartate Amino Transf (AST/SGOT) 30, Alanine Aminotransferase (ALT/SGPT) 12, Alkaline Phosphatase 232H, Total Bilirubin 0.6, Total Protein 7.0, Albumin 2.4L, Albumin/Globulin Ratio 0.52L, Digoxin Level 1.4 06/12/19 11:44: Bedside Glucose (Misc Panel) 104 CBC/BMP Laboratory Tests 9/29/19 06:31 Red Blood Count 2.73 L, Mean Corpuscular Volume 102.2 H, Mean Corpuscular Hemoglobin 30.8, Mean Corpuscular Hemoglobin Concent 30.1 L, Red Cell Distribution Width 17.7 H, Neutrophils (%) (Auto) 69.3 H, Lymphocytes (%) (Auto) 11.5 L, Monocytes (%) (Auto) 8.4 H, Eosinophils (%) (Auto) 5.8 H, Basophils (%) (Auto) 0.7, Neutrophils # (Auto) 5.1, Lymphocytes # (Auto) 0.9 L, Monocytes # (Auto) 0.6, Eosinophils # (Auto) 0.4, Basophils # (Auto) 0.1, Calcium Level 8.4 L, Aspartate Amino Transf (AST/SGOT) 30, Alanine Aminotransferase (ALT/SGPT) 12, Alkaline Phosphatase 232 H, Total Bilirubin 0.6, Total Protein 7.0, Albumin 2.4 L Will Steiner M.D. Jun 12, 2019 15:30
[2019-06-12 18:00] VITALS: BP 136/58
[2019-06-12 20:00] VITALS: BP 138/58
--- NOTE | 2019-06-12 20:28 | IPN ---
DATE: 06/12/2019 SUBJECTIVE: The patient was seen and examined at the bedside. She was actually sitting in the sofa today. There is no significant improvement in the renal function. Creatinine is fluctuating at 3.2. She was given the bowel regimen for constipation. She had three bowel movements. She does not have much urine output, total urine output recorded since overnight is only 600 mL. OBJECTIVE: Vital signs: Temperature is 97.8 degrees Fahrenheit, blood pressure 134/64, pulse is 70, respiratory rate of 18, saturating 94% on room air. Intake and output: Urine output recorded is 650 mL yesterday, only 600 mL so far today since overnight. Weight in the bed scale is not available. PHYSICAL EXAMINATION: General: The patient is awake, alert, oriented times three, sitting up in the sofa, morbidly obese, no apparent distress. Head and neck exam: Extraocular muscles intact. Pupils equally round and reactive to light. Mucous membranes are moist. Neck is supple. I could not appreciate the JVD because of body habitus. Cardiovascular: S1, S2, regular rate, 1+ edema of the bilateral lower extremities. Respiratory: Mildly decreased breath sounds at the bases, otherwise no active rales or rhonchi. Abdomen: Soft, obese, positive bowel sounds. Nontender. No organomegaly was appreciated. Musculoskeletal: No clubbing or cyanosis. Pulses are 2+. 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 LABORATORY REVIEW: CBC showed WBC 7.4, hemoglobin 8.4, platelets are 180. BMP showed sodium 144, potassium 4.5, chloride 117, bicarbonate is 20, BUN 63, creatinine is 3.2, it was 3.2 yesterday as well, albumin 2.4. CURRENT INPATIENT MEDICATIONS: The patient's medications were all reviewed by me. She was given a normal saline bolus yesterday. She was also started on MiraLax yesterday for constipation. No other change in the medications today as compared with yesterday. ASSESSMENT/PLAN: 1. Acute kidney injury superimposed on chronic kidney disease stage IV. There is no significant improvement in the renal function despite IV fluid hydration and I am encouraging oral hydration. The patient developed acute kidney injury during this hospitalization that responded to placement of Cordon catheter. I am going to place the Cordon again and monitor the urine output. If I do not see any improvement in the renal function, the patient might need to start hemodialysis. 2. Esophagitis. The patient currently is on fluconazole and PPI. She reports that she is trying to drink more liquids at this time. 3. Constipation. It responded very well to Dulcolax and MiraLAX. 4. Anemia in chronic kidney disease. Continue iron tablet every other day. Continue current dose of Aranesp. No need of blood transfusion. 5. Chronic diastolic congestive heart failure. Volume status is optimal. Diuretics are on hold. Continue current dose of Coreg 6.25 mg by mouth twice a day.
[2019-06-12] MEDS: ATORVASTATIN 20 MG TAB PO SCH (21:27)
[2019-06-12] MEDS: GABAPENTIN 300 MG CAP PO SCH (21:28)
[2019-06-12] MEDS: LEVEMIR (INSULIN DETEMIR) 1 UNITS/0.01ML SC SCH (21:29)
[2019-06-12] MEDS: LATANOPROST 0.005% OPHTH SOLN 2.5 ML OU SCH (21:30)
[2019-06-13] MEDS: NYSTATIN 500,000 U/5 ML SUSP UDC SS SCH ×4 (00:06→17:30)
[2019-06-13 06:12] LABS: BASO # 0.1 10^3/uL (0.0-0.2); BASO % 0.8 % (0.0-1.0); EOS # 0.4 10^3/uL (0.0-0.5); EOS % 4.8 % (0.0-3.0); HEMATOCRIT 28.8 % (36.0-47.0); HEMOGLOBIN 8.7 g/dl (12.0-15.5); LYMPH # 1.2 10^3/uL (1.5-5.0); MEAN CORPUSCULAR HEMOGLOBIN 30.9 pg (27.0-33.0); MEAN CORPUSCULAR HGB CONC 30.2 g/dl (32.0-36.5); MEAN CORPUSCULAR VOLUME 102.1 fl (80.0-96.0); MONO # 0.8 10^3/uL (0.0-0.8); MONO % 9.2 % (0.0-5.0); NEUTROPHILS % 67.3 % (36.0-66.0); PLATELET COUNT, AUTOMATED 189 10^3/uL (150-450); RED BLOOD COUNT 2.82 10^6/uL (4.00-5.40); WHITE BLOOD COUNT 8.9 10^3/uL (4.0-10.0)
[2019-06-13 06:25] LABS: INR 1.53; PROTHROMBIN TIME 18.1 SECONDS (11.8-14.0)
[2019-06-13 06:37] LABS: ALBUMIN 2.4 GM/DL (3.2-5.2); BILIRUBIN,TOTAL 0.5 MG/DL (0.2-1.0); CALCIUM LEVEL 8.4 MG/DL (8.8-10.2); CREATININE FOR GFR 3.09 MG/DL (0.55-1.30); POTASSIUM SERUM 4.7 MEQ/L (3.5-5.1); TOTAL PROTEIN 7.4 GM/DL (6.4-8.2)
[2019-06-13] MEDS: HumaLOG INSULIN (NovoLOG) PER UNIT SC SCH ×4 (07:30→21:00)
--- NOTE | 2019-06-13 08:43 | IPNPDOC ---
Subjective Date Seen The patient was seen on 06/13/19. Subjective Chief Complaint/HPI PIPPA Events since last encounter patient with PIPPA recently. Cr elevated to 3.2. nephrology consulted and inserted Murry catheter. Has also had BLE edema. She was previously on Torsemide which was held due to renal disease. Constitutional: Denies: Chills, Fever, Night Sweats Pulmonary: Denies: Dyspnea, Cough Cardiovascular: Reports: Edema; Denies: Chest Pain, Palpitations, Orthopnea, Paroxysmal Noc. Dyspnea, Lt Headedness Psych: Reports: Mood Normal; Denies: Depression, Memory Issues Objective Physical Examination General Exam: Positive: Alert, Cooperative, Mild Distress (holding emesis bag and holding erh epigastrum in discomfort) Eye Exam: Positive: Conjunctiva & lids normal; Negative: Sclera icteric ENT Exam: Positive: Mucous membr. moist/pink Neck Exam: Positive: Supple; Negative: Lymphadenopathy Chest Exam: Positive: Clear to auscultation, Diminished (secondary to obesity-hypoventilation syndrome); Negative: Rales, Rhonchi, Wheezing Heart Exam: Positive: Rate Normal, Irregular Rhythm, Murmurs Abdomen Exam: Positive: Normal bowel sounds, Soft; Negative: Tenderness Extremity Exam: Positive: Edema (2 mm B PTE) Psych Exam: Positive: Mood NL, Memory Intact, Oriented x 3 Assessment /Plan Problems (1) Acute on chronic kidney failure Status: Acute Problem Text: baseline cr 2.5 06/13/19: Mild improvement o 3.0. Murry placed. Placed on 1800 ml fluid restriction due to edema in BLE. Appreciate Nephrology input regarding diuresis. 06/12 63/3.2, 4.5-Nephro placed murry to monitor UOP (patient was retaining ~100 cc urine), remains on tamsul 0.4 06/11 stable at 76/3.3, 4.7 c hydration (2) CHF (congestive heart failure) Permanent Comment: 06/01/19: Echocardiogram shows grade 1 diastolic dysfunction Last Edited By: Bryant Arriaga MD on Jun 04, 2019 11:18 pm Status: Chronic Response to Treatment: Stable, Compensated Problem Text: Remains off HD torse 40/10 c mild decomp by PE 06/13/2019: Pro-BNP: 3644 with BLE edema. elevated Cr. can contribute to elevated BNP. Appreciate Nephrology input regarding diuresis/fluid management. 06/03 BNP 3173 (3) Anemia Status: Chronic Response to Treatment: Stable Problem Text: 2 CKD hgb 8.6 06/01 sp Aranesp 300 q7D/ Fe gluc QOD (4) Constipation Problem Specific Plan: Monitor Clinically Problem Text: added on miralax, encouraged to get OOB. I ordered a half a bottle of mag citrate today followed by the other half in 4 hours if she has not had a bowel movement. Hopefully this will help clear up her constipation. I suspect this probably be where the mild elevation white count is coming from. Will monitor that carefully. (5) Diabetes mellitus with stage 4 chronic kidney disease GFR 15-29 Status: Chronic Response to Treatment: Stable Problem Text: HD glar 65 c AC TID SS U-500 06/12 given AC BG 89-104, decreased det by 20% 46 to 37 (6) Atrial fibrillation Status: Chronic Response to Treatment: Stable Problem Text: RC c HD carve, dig 125 MWF 06/12 dig 1.4 on 250 MWF, therefore, held dose and decreased to 125 MWF VKA for AC 06/12 1.9 06/11 INR 2.3 on HD VKA 5 MF/2.5 ROW (7) Hypertension Status: Chronic Response to Treatment: Stable Problem Text: stable on carve 6.25 BID (8) Physical deconditioning Status: Chronic Discussed With: Patient, Family with Pt Consent Problem Specific Plan: Monitor Clinically Problem Text: 06/10 safe for dc home, at "maximal" rehab potential (9) Sialadenitis Status: Resolved Problem Specific Plan: Consult Specialist Problem Text: 06/07 D12/14 clinda-held 2 PIPPA, ? secondary [place] 06/02/19: Post I and D Warthins duct and floor of mouth sepsis. She remains Afebrile today. Per ENT continue IV ABX for 48 hours while she is being medically stabilized and then consider 2 weeks of Outpatient oral Cleocin. Today will be 48 hours. D/C tomorrow 06/01/19: S/P stone extraction/suction. Patient doing much better. She is tolerating a soft diet. Day # 4 of clindamycin. I will discuss with attending discontinuation date of abx 05/31: patient to go to ENT office for attempt to remove stone from submandibular salivary gland and facilitate drainage this am. Hopefully this will improve pain 05/30/19: Pain persists. ENT was consulted. Dr. Brasher recommended to continue with abx, sialogogues and hydration, massage and heat. We may want to consider repeat study as patient is unable to eat or drink and pain is worse. Day #2 of Clindamycin (10) Epigastric pain Status: Resolved Response to Treatment: Improving Problem Text: Resolved on panto 40 c Tums/ondan prn Zofran most likely related to esophagitis from the Clindamycin po. Plan/VTE VTE Prophylaxis Ordered?: Yes (Warfarin ) Plan Therapy: PT Family Medicine Attending Note: I saw and examined Ms. Vargas, discussed with BECCA Jensen. Agree with her note as documented. Had a chance to speak to Dr. Reynoso regarding her renal function. He is of the opinion that the current elevation of her creatinine is not primarily from congestive heart failure, rather from hydronephrosis and urinary retention. He reports that over week ago when she had a Murry catheter put in, a bladder scan he performed himself showed no retained urine yet 5-600 mL were recovered when the catheter was placed. He believes that the bladder scans are inaccurate based on the patient's habitus. He does not support a fluid restriction as he thinks she may be clinically dry. He would like to see what happens to her renal function after a day or 2 of the catheter being in place. If there is improvement back to baseline it may be that she requires a long-term catheter or at least some other intervention by urology. The edema in her lower extremities could be explained by inactivity and venous stasis. Based on this I will remove the fluid restriction we added today and monitor per his recommendation. (investment associate) VS, I&O, 24H, Fishbone Vital Signs/I&O Vital Signs Date Time Temp Pulse Resp B/P (MAP) Pulse Ox O2 Delivery O2 Flow Rate FiO2 06/12/19 21:29 71 138/58 06/12/19 20:00 97.9 22 91 06/10/19 22:29 3.0 I&O- Last 24 Hours up to 6 AM 06/13/19 06:00 Intake Total 870 ml Output Total 1000 ml Balance -130 ml Laboratory Data 24H LABS Laboratory Tests 2 06/12/19 11:44: Bedside Glucose (Misc Panel) 104 06/12/19 16:10: Bedside Glucose (Misc Panel) 127H 06/12/19 20:02: Bedside Glucose (Misc Panel) 124H 06/13/19 05:39: Immature Granulocyte % (Auto) 4.9H, White Blood Count 8.9, Red Blood Count 2.82L, Hemoglobin 8.7L, Hematocrit 28.8L, Mean Corpuscular Volume 102.1H, Mean Corpuscular Hemoglobin 30.9, Mean Corpuscular Hemoglobin Concent 30.2L, Red Cell Distribution Width 17.6H, Platelet Count 189, Neutrophils (%) (Auto) 67.3H, Lymphocytes (%) (Auto) 13.0L, Monocytes (%) (Auto) 9.2H, Eosinophils (%) (Auto) 4.8H, Basophils (%) (Auto) 0.8, Neutrophils # (Auto) 6.0, Lymphocytes # (Auto) 1.2L, Monocytes # (Auto) 0.8, Eosinophils # (Auto) 0.4, Basophils # (Auto) 0.1, Nucleated Red Blood Cells % (auto) 0.4H, Prothrombin Time 18.1H, Prothromb Time International Ratio 1.53, Anion Gap 11, Glomerular Filtration Rate 16.0L, Blood Urea Nitrogen 60H, Creatinine 3.09H, Sodium Level 144, Potassium Level 4.7, Chloride Level 114H, Carbon Dioxide Level 19L, Calcium Level 8.4L, Aspartate Amino Transf (AST/SGOT) 32, Alanine Aminotransferase (ALT/SGPT) 12, Alkaline Phosphatase 238H, Total Bilirubin 0.5, Total Protein 7.4, Albumin 2.4L, YR-Eix-P-Type Natriuretic Peptide 3644H, Albumin/Globulin Ratio 0.48L CBC/BMP Laboratory Tests 06/13/19 05:39 Red Blood Count 2.82 L, Mean Corpuscular Volume 102.1 H, Mean Corpuscular Hemoglobin 30.9, Mean Corpuscular Hemoglobin Concent 30.2 L, Red Cell Distribution Width 17.6 H, Neutrophils (%) (Auto) 67.3 H, Lymphocytes (%) (Auto) 13.0 L, Monocytes (%) (Auto) 9.2 H, Eosinophils (%) (Auto) 4.8 H, Basophils (%) (Auto) 0.8, Neutrophils # (Auto) 6.0, Lymphocytes # (Auto) 1.2 L, Monocytes # (Auto) 0.8, Eosinophils # (Auto) 0.4, Basophils # (Auto) 0.1, Calcium Level 8.4 L, Aspartate Amino Transf (AST/SGOT) 32, Alanine Aminotransferase (ALT/SGPT) 12, Alkaline Phosphatase 238 H, Total Bilirubin 0.5, Total Protein 7.4, Albumin 2.4 L Deborah Shoemaker Jun 13, 2019 8:43 am Bryant Arriaga MD Jun 13, 2019 7:12 pm
[2019-06-13 10:00] VITALS: BP 138/59
[2019-06-13] MEDS: LACTOBACILLUS ACIDOPHILUS CAP (BACID) PO SCH ×3 (10:01→17:30)
[2019-06-13] MEDS: MONTELUKAST 10 MG TAB PO SCH (10:02)
[2019-06-13] MEDS: DOCUSATE SODIUM 100 MG CAP PO SCH ×2 (10:02→21:30)
[2019-06-13] MEDS: SENOKOT S TAB PO SCH (10:02)
[2019-06-13] MEDS: CETIRIZINE (ZyrTEC) 10 MG TAB PO SCH (10:02)
[2019-06-13] MEDS: PANTOPRAZOLE 40MG TAB (PROTONIX) PO SCH (10:02)
[2019-06-13] MEDS: TAMSULOSIN 0.4 MG CAP PO SCH (10:02)
[2019-06-13] MEDS: FLUTICASONE PROP 0.05% NASAL SPRAY 16 GM (FLONASE) SCH (10:03)
[2019-06-13] MEDS: NYSTATIN 100,000 UNITS/GM TOPICAL PWD 15 GM TOP SCH ×2 (10:03→21:31)
[2019-06-13] MEDS: CARVedilol 6.25 MG TAB PO SCH ×2 (10:06→21:30)
[2019-06-13] MEDS: SODIUM BICARBONATE 325 MG TAB PO SCH ×2 (13:29→21:30)
--- NOTE | 2019-06-13 13:29 | IPN ---
DATE OF SERVICE: 06/13/2019 SUBJECTIVE: The patient was seen and examined at the bedside today morning. She got the Cordon catheter placed yesterday. Urine output is better, being monitored. She made about a liter of urine yesterday. There is slight improvement in the renal function. Creatinine is down to 3 from 3.2 yesterday. The patient reports that she is able to tolerate a little bit more fluids now. She denies any shortness of breath or cough at this time. OBJECTIVE: Vital signs: Temperature is 97.3 degrees Fahrenheit, blood pressure 138/59, pulse is 70, respiratory rate of 18, saturating 94% on room air. Intake and output: Urine output recorded is 1.1 liters yesterday, 450 mL so far today since overnight. Weight in the bed scale is not available. PHYSICAL EXAMINATION: General: The patient is morbidly obese, sitting up in the bed, no apparent distress. Head and neck examination: Extraocular muscles intact. Pupils equally round and reactive to light. Mucous membranes are moist. Neck is supple. I cannot appreciate the jugular venous distention (JVD). Cardiovascular: S1, S2, regular rate, 1+ edema of the bilateral lower extremities. Respiratory: Chest is clear to auscultation bilaterally. Mildly decreased breath sounds at the bases, otherwise no rales or rhonchi. Abdomen: Soft, obese, positive bowel sounds. Nontender. Musculoskeletal: No clubbing or cyanosis. Pulses are 2+. 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 Power is 5/5 in all extremities. LABORATORY REVIEW: Complete blood count (CBC) showed a WBC 8.9, hemoglobin 8.7, platelets are 189. Basic metabolic profile (BMP) showed sodium 144, potassium 4.7, chloride 114, bicarbonate is 19, BUN 60, creatinine is 3, calcium 8.4, albumin 2.4. CURRENT INPATIENT MEDICATIONS: The patient's medications were all reviewed by me. Her digoxin dose has been decreased to 0.125 mcg Thursday, Thursday, Thursday. Insulin dose has been decreased. ASSESSMENT AND PLAN: 1. Acute kidney injury superimposed on chronic kidney disease stage IV. The patient got the Cordon catheter placed yesterday. Urine output is improving. There is slight improvement in the renal function. Continue the Cordon for now. No fluid restriction at this time. I will look at the intake and output for 24 hours and decide about intravenous (IV) fluids. It very difficult to assess the patient's volume status because of her body habitus. 2. Chronic diastolic congestive heart failure. Continue current dose of Coreg. No need of diuretic at this time. The patient is recovering from acute renal failure. 3. Anemia in chronic kidney disease. Continue current dose of Aranesp. No need of blood transfusion at this time. 4. Metabolic acidosis. Bicarbonate level is trending down. I have started the patient on sodium bicarbonate 325 mg by mouth twice a day.
[2019-06-13 14:00] VITALS: BP 150/61
[2019-06-13 18:00] VITALS: BP 148/62
[2019-06-13] MEDS: ATORVASTATIN 20 MG TAB PO SCH (21:29)
[2019-06-13] MEDS: GABAPENTIN 300 MG CAP PO SCH (21:30)
[2019-06-13] MEDS: LATANOPROST 0.005% OPHTH SOLN 2.5 ML OU SCH (21:31)
[2019-06-13] MEDS: LEVEMIR (INSULIN DETEMIR) 1 UNITS/0.01ML SC SCH (21:31)
[2019-06-13] MEDS: ACETAMINOPH W/CODEINE #3 TAB UD PO PRN (21:33)
[2019-06-13 22:00] VITALS: BP 141/71
[2019-06-14] MEDS: NYSTATIN 500,000 U/5 ML SUSP UDC SS SCH ×5 (00:26→23:28)
[2019-06-14 02:00] VITALS: BP 144/72
[2019-06-14 06:00] VITALS: BP 141/71
[2019-06-14] MEDS: HumaLOG INSULIN (NovoLOG) PER UNIT SC SCH ×4 (07:28→21:00)
[2019-06-14] MEDS: CETIRIZINE (ZyrTEC) 10 MG TAB PO SCH (08:01)
[2019-06-14] MEDS: SODIUM BICARBONATE 325 MG TAB PO SCH ×2 (08:01→21:18)
[2019-06-14] MEDS: SENOKOT S TAB PO SCH (08:01)
[2019-06-14] MEDS: MAGNESIUM OXIDE 400 MG TAB (MAG-OX) PO SCH (08:02)
[2019-06-14] MEDS: PANTOPRAZOLE 40MG TAB (PROTONIX) PO SCH (08:02)
[2019-06-14] MEDS: FERROUS GLUCONATE 324 MG TAB PO SCH (08:02)
[2019-06-14] MEDS: TAMSULOSIN 0.4 MG CAP PO SCH (08:02)
[2019-06-14] MEDS: MONTELUKAST 10 MG TAB PO SCH (08:02)
[2019-06-14] MEDS: LACTOBACILLUS ACIDOPHILUS CAP (BACID) PO SCH ×3 (08:02→17:24)
[2019-06-14] MEDS: FLUTICASONE PROP 0.05% NASAL SPRAY 16 GM (FLONASE) SCH (08:03)
[2019-06-14] MEDS: DOCUSATE SODIUM 100 MG CAP PO SCH ×2 (08:03→21:18)
[2019-06-14] MEDS: CARVedilol 6.25 MG TAB PO SCH ×2 (08:03→21:18)
[2019-06-14] MEDS: NYSTATIN 100,000 UNITS/GM TOPICAL PWD 15 GM TOP SCH ×2 (08:03→21:20)
[2019-06-14] MEDS: IPRATROPIUM 0.5MG/ALBUTEROL 2.5MG INH SOL UD 3ML (DUONEB)(J7620) INH PRN (09:54)
[2019-06-14 10:00] VITALS: BP 140/68
--- NOTE | 2019-06-14 10:17 | IPNPDOC ---
Subjective Date Seen The patient was seen on 06/14/19. Subjective Chief Complaint/HPI acute on chronic kidney disease Events since last encounter Nephrology lifted fluid restriction. patient denies c/o today Constitutional: Denies: Chills, Fever, Night Sweats ENT: Denies: Head Aches, Ear Pain, Dysphagia Skin: Denies: Rash, Lesions, Breakdown Pulmonary: Denies: Dyspnea, Cough Cardiovascular: Reports: Edema; Denies: Chest Pain, Palpitations, Orthopnea, Paroxysmal Noc. Dyspnea, Lt Headedness Gastrointestinal: Denies: Nausea, Vomiting, Abdominal Pain, Diarrhea, Constipation Genitourinary: Denies: Dysuria, Frequency, Incontinence, Retention Objective Physical Examination General Exam: Positive: Alert, Cooperative, Mild Distress (holding emesis bag and holding erh epigastrum in discomfort) Eye Exam: Positive: Conjunctiva & lids normal; Negative: Sclera icteric ENT Exam: Positive: Mucous membr. moist/pink Neck Exam: Positive: Supple; Negative: Lymphadenopathy Chest Exam: Positive: Clear to auscultation, Diminished (secondary to obesity- hypoventilation syndrome); Negative: Rales, Rhonchi, Wheezing Heart Exam: Positive: Rate Normal, Irregular Rhythm, Murmurs Abdomen Exam: Positive: Normal bowel sounds, Soft; Negative: Tenderness Extremity Exam: Positive: Edema (2 mm B PTE) Psych Exam: Positive: Mood NL, Memory Intact, Oriented x 3 Assessment /Plan Problems (1) Acute on chronic kidney failure Status: Acute Problem Text: baseline cr 2.5 06/13/19: Mild improvement o 3.0. Murry placed. Placed on 1800 ml fluid restriction due to edema in BLE. Appreciate Nephrology input regarding diuresis. 06/12 63/3.2, 4.5-Nephro placed murry to monitor UOP (patient was retaining ~100 cc urine), remains on tamsul 0.4 06/11 stable at 76/3.3, 4.7 c hydration (2) CHF (congestive heart failure) Permanent Comment: 06/01/19: Echocardiogram shows grade 1 diastolic dysfunction Last Edited By: Bryant Arriaga MD on Jun 04, 2019 23:18 Status: Chronic Response to Treatment: Stable Problem Text: Remains off HD torse 40/10 c mild decomp by PE 06/14/2019: Continues to drain from Murry catheter. Continues to show weight gain, edema, and BP is trending up. Continue appreciate Nephrology input regarding fluid management. 06/13/2019: Pro-BNP: 3644 with BLE edema. elevated Cr. can contribute to elevated BNP. Appreciate Nephrology input regarding diuresis/fluid management. 06/03 BNP 3173 (3) Anemia Status: Chronic Response to Treatment: Stable Problem Text: 2 CKD hgb 8.6 06/01 sp Aranesp 300 q7D/ Fe gluc QOD (4) Constipation Problem Specific Plan: Monitor Clinically Problem Text: added on miralax, encouraged to get OOB. I ordered a half a bottle of mag citrate today followed by the other half in 4 hours if she has not had a bowel movement. Hopefully this will help clear up her constipation. I suspect this probably be where the mild elevation white count is coming from. Will monitor that carefully. (5) Diabetes mellitus with stage 4 chronic kidney disease GFR 15-29 Status: Chronic Response to Treatment: Stable Problem Text: HD glar 65 c AC TID SS U-500 06/12 given AC BG 89-104, decreased det by 20% 46 to 37 (6) Atrial fibrillation Status: Chronic Response to Treatment: Stable Problem Text: RC c HD carve, dig 125 MWF 06/12 dig 1.4 on 250 MWF, therefore, held dose and decreased to 125 MWF VKA for AC 06/12 1.9 06/11 INR 2.3 on HD VKA 5 MF/2.5 ROW (7) Hypertension Status: Chronic Response to Treatment: Stable Problem Text: stable on carve 6.25 BID (8) Physical deconditioning Status: Chronic Discussed With: Patient, Family with Pt Consent Problem Specific Plan: Monitor Clinically Problem Text: 06/10 safe for dc home, at "maximal" rehab potential (9) Sialadenitis Status: Resolved Problem Specific Plan: Consult Specialist Problem Text: 06/07 D12/14 clinda-held 2 PIPPA, ? secondary IN 06/02/19: Post I and D Warthins duct and floor of mouth sepsis. She remains Afebrile today. Per ENT continue IV ABX for 48 hours while she is being medically stabilized and then consider 2 weeks of Outpatient oral Cleocin. Today will be 48 hours. D/C tomorrow 06/01/19: S/P stone extraction/suction. Patient doing much better. She is tolerating a soft diet. Day # 4 of clindamycin. I will discuss with attending discontinuation date of abx 05/31: patient to go to ENT office for attempt to remove stone from submandibular salivary gland and facilitate drainage this am. Hopefully this will improve pain 05/30/19: Pain persists. ENT was consulted. Dr. Brasher recommended to continue with abx, sialogogues and hydration, massage and heat. We may want to consider repeat study as patient is unable to eat or drink and pain is worse. Day #2 of Clindamycin (10) Epigastric pain Status: Resolved Response to Treatment: Improving Problem Text: Resolved on panto 40 c Tums/ondan prn Zofran most likely related to esophagitis from the Clindamycin po. Plan/VTE VTE Prophylaxis Ordered?: Yes (Warfarin ) Plan Therapy: PT VS, I&O, 24H, Fishbone Vital Signs/I&O Vital Signs Date Time Temp Pulse Resp B/P (MAP) Pulse Ox O2 Delivery O2 Flow Rate FiO2 06/14/19 08:03 71 161/70 06/14/19 06:00 96.0 17 95 06/10/19 22:29 3.0 I&O- Last 24 Hours up to 6 AM 06/14/19 06:00 Intake Total 2622 ml Output Total 1725 ml Balance 897 ml Laboratory Data 24H LABS Laboratory Tests 2 06/13/19 11:36: Bedside Glucose (Misc Panel) 117H 06/13/19 16:19: Bedside Glucose (Misc Panel) 144H 06/13/19 20:39: Bedside Glucose (Misc Panel) 131H 06/14/19 06:35: Bedside Glucose (Misc Panel) 89 Deborah Shoemaker BLOCK [employer] Jun 14, 2019 10:16
[2019-06-14 11:24] LABS: HEMATOCRIT 31.6 % (36.0-47.0); HEMOGLOBIN 9.7 g/dl (12.0-15.5); MEAN CORPUSCULAR HEMOGLOBIN 31.1 pg (27.0-33.0); MEAN CORPUSCULAR HGB CONC 30.7 g/dl (32.0-36.5); MEAN CORPUSCULAR VOLUME 101.3 fl (80.0-96.0); PLATELET COUNT, AUTOMATED 204 10^3/uL (150-450); RED BLOOD COUNT 3.12 10^6/uL (4.00-5.40); WHITE BLOOD COUNT 9.6 10^3/uL (4.0-10.0)
[2019-06-14 11:40] LABS: INR 1.33; PROTHROMBIN TIME 16.2 SECONDS (11.8-14.0)
[2019-06-14 12:16] LABS: ALBUMIN 2.7 GM/DL (3.2-5.2); BILIRUBIN,TOTAL 0.7 MG/DL (0.2-1.0); CALCIUM LEVEL 8.3 MG/DL (8.8-10.2); CREATININE FOR GFR 2.5 MG/DL (0.55-1.30); GLOMERULAR FILTRATION RATE 20.4 (>45); POTASSIUM SERUM 5.1 MEQ/L (3.5-5.1); TOTAL PROTEIN 6.7 GM/DL (6.4-8.2)
[2019-06-14] MEDS ORDERED: FUROSEMIDE 40 MG/4 ML VIAL (J1940) IV ONE (13:00)
[2019-06-14] MEDS: ACETAMINOPH W/CODEINE #3 TAB UD PO PRN ×2 (13:20→18:03)
[2019-06-14 14:00] VITALS: BP 150/68
[2019-06-14] MEDS ORDERED: BUMETANIDE 1 MG TAB PO ONE (14:00)
[2019-06-14] MEDS: WARFARIN SOD 2.5 MG TAB PO SCH (17:23)
--- NOTE | 2019-06-14 20:04 | IPN ---
DATE: 06/14/2019 SUBJECTIVE: The patient was seen and examined the bedside today morning. She was sitting in the sofa. She still has the Cordon catheter ever since the Cordon catheter was placed. Urine output is improving. Her renal function is also getting better. Creatinine is down to 2.5 today; however, the patient does report that she is getting progressive shortness of breath, and she also reports worsening lower extremity edema. OBJECTIVE: Vital signs: Temperature is 97.8 degrees Fahrenheit, blood pressure 150/68, pulse is 70, respiratory of 17, saturating 96 % on room air. Intake and output: Urine output recorded is 1.7 liters yesterday and 475 mL so far today since overnight. Weight in the bed scale 119.5 kg. PHYSICAL EXAMINATION: GENERAL: The patient is awake, alert, oriented times three, sitting up in the sofa i no apparent distress. HEAD AND NECK: Extraocular muscles intact. Pupils equally round and reactive to light. Mucous membranes are moist. Neck is supple. I could not appreciate the jugular venous distention (JVD). CARDIOVASCULAR: S1, S2, regular rate. Edema 2+ of the bilateral lower extremities. RESPIRATORY: Mildly decreased breath sounds at the bases and mild inspiratory crackles at the bases on deep inspiration. ABDOMEN: Soft, obese. Positive bowel sounds. Nontender. GENITOURINARY: She has an indwelling Cordon catheter. Urine in the bag is clear. MUSCULOSKELETAL: No clubbing or cyanosis. Edema 2+ of the bilateral lower extremities. CENTRAL NERVOUS SYSTEM: No focal deficit. Power is 5/5 in all extremities. LABORATORY REVIEW: CBC showed WBC of 9.6, hemoglobin 9.7, platelets are 204. BMP showed sodium 143, potassium 5.1, chloride 113, bicarbonate 21, BUN 53, creatinine is 2.5; it was 3.0 yesterday. BNP was 3644 yesterday. CURRENT INPATIENT MEDICATIONS: The patient's medications were all reviewed by me. I have ordered a dose of Bumex 1 mg by mouth times one dose to be given today. No other change in the medications today as compared with yesterday. ASSESSMENT AND PLAN: 1. Acute kidney injury superimposed on chronic kidney disease, stage IV. Patient's renal function is improving. Creatinine is down to 2.5, which is close to her baseline. Continue the Cordon catheter at this time. I am going to start the diuretics now and monitor the renal function. 2. Chronic diastolic congestive heart failure. Volume status is decompensated. Continue current dose of Coreg. I have ordered a dose of Bumex 1 mg today. 3. Anemia and chronic kidney disease. Hemoglobin is staying stable. Continue current dose of Aranesp. 4. Metabolic acidosis. It is controlled with the current dose of sodium bicarbonate. MTDD
[2019-06-14] MEDS: GABAPENTIN 300 MG CAP PO SCH (21:18)
[2019-06-14] MEDS: LEVEMIR (INSULIN DETEMIR) 1 UNITS/0.01ML SC SCH (21:19)
[2019-06-14] MEDS: ATORVASTATIN 20 MG TAB PO SCH (21:19)
[2019-06-14] MEDS: LATANOPROST 0.005% OPHTH SOLN 2.5 ML OU SCH (21:20)
[2019-06-14 22:00] VITALS: BP 153/64
[2019-06-15] MEDS: IPRATROPIUM 0.5MG/ALBUTEROL 2.5MG INH SOL UD 3ML (DUONEB)(J7620) INH PRN ×2 (00:06→15:41)
[2019-06-15 02:00] VITALS: BP 152/70
[2019-06-15] MEDS: NYSTATIN 500,000 U/5 ML SUSP UDC SS SCH (05:14)
[2019-06-15 06:00] VITALS: BP 151/72
[2019-06-15 06:15] LABS: BASO # 0.1 10^3/uL (0.0-0.2); BASO % 0.7 % (0.0-1.0); EOS # 0.6 10^3/uL (0.0-0.5); EOS % 6.1 % (0.0-3.0); HEMOGLOBIN 8.8 g/dl (12.0-15.5); LYMPH # 1.2 10^3/uL (1.5-5.0); LYMPH % 12.1 % (24.0-44.0); MEAN CORPUSCULAR HEMOGLOBIN 29.7 pg (27.0-33.0); MEAN CORPUSCULAR HGB CONC 29.3 g/dl (32.0-36.5); MEAN CORPUSCULAR VOLUME 101.4 fl (80.0-96.0); MONO # 0.8 10^3/uL (0.0-0.8); MONO % 8.2 % (0.0-5.0); NEUTROPHILS # 6.5 10^3/uL (1.5-8.5); NEUTROPHILS % 68.2 % (36.0-66.0); PLATELET COUNT, AUTOMATED 197 10^3/uL (150-450); RED BLOOD COUNT 2.96 10^6/uL (4.00-5.40); WHITE BLOOD COUNT 9.5 10^3/uL (4.0-10.0)
[2019-06-15 06:33] LABS: INR 1.34; PROTHROMBIN TIME 16.3 SECONDS (11.8-14.0)
[2019-06-15 06:43] LABS: ALBUMIN 2.5 GM/DL (3.2-5.2); BILIRUBIN,TOTAL 0.6 MG/DL (0.2-1.0); CALCIUM LEVEL 8.5 MG/DL (8.8-10.2); CREATININE FOR GFR 2.5 MG/DL (0.55-1.30); GLOMERULAR FILTRATION RATE 20.4 (>45); POTASSIUM SERUM 4.6 MEQ/L (3.5-5.1)
[2019-06-15] MEDS: HumaLOG INSULIN (NovoLOG) PER UNIT SC SCH ×4 (07:30→20:01)
[2019-06-15 08:15] VITALS: BP 168/71
--- NOTE | 2019-06-15 08:43 | IPNPDOC ---
Subjective Date Seen The patient was seen on 06/15/19. Subjective Chief Complaint/HPI acute on chronic renal disease Events since last encounter had an episode of described wheezing and coughing overnight. resolved with nebulizer treatment. States this has been happening since yesterday. denies cold or URI type symptoms. afebrile. Was given mil;d diuresis yesterday with 1.5 L diuresed. Cr remains stable at 2.5. Nephrology continues to follow. Constitutional: Denies: Chills, Fever, Night Sweats Pulmonary: Reports: Cough Cardiovascular: Denies: Chest Pain, Palpitations, Orthopnea, Paroxysmal Noc. Dyspnea, Lt Headedness Gastrointestinal: Denies: Nausea, Vomiting, Abdominal Pain, Diarrhea, Constipation Objective Physical Examination General Exam: Positive: Alert, Cooperative, No Acute Distress Eye Exam: Positive: Conjunctiva & lids normal; Negative: Sclera icteric ENT Exam: Positive: Mucous membr. moist/pink Neck Exam: Positive: Supple; Negative: Lymphadenopathy Chest Exam: Positive: Clear to auscultation, Diminished (secondary to obesity- hypoventilation syndrome); Negative: Rales, Rhonchi, Wheezing Heart Exam: Positive: Rate Normal, Irregular Rhythm, Murmurs Abdomen Exam: Positive: Normal bowel sounds, Soft; Negative: Tenderness Extremity Exam: Positive: Edema (1+) Psych Exam: Positive: Mood NL, Memory Intact, Oriented x 3 Assessment /Plan Problems (1) Acute on chronic kidney failure Status: Acute Problem Text: baseline cr 2.5 06/15/19: improved cr of 2.5. Murry catheter in place and draining well. 06/13/19: Mild improvement o 3.0. Murry placed. Placed on 1800 ml fluid restrict ion due to edema in BLE. Appreciate Nephrology input regarding diuresis. 06/12 63/3.2, 4.5-Nephro placed murry to monitor UOP (patient was retaining ~100 cc urine), remains on tamsul 0.4 06/11 stable at 76/3.3, 4.7 c hydration (2) CHF (congestive heart failure) Permanent Comment: 06/01/19: Echocardiogram shows grade 1 diastolic dysfunction Last Edited By: Bryant Arriaga MD on Jun 04, 2019 23:18 Status: Chronic Response to Treatment: Stable Problem Text: Remains off HD torse 40/10 c mild decomp by PE 06/15/2019: received diuresis yesterday. patient declines weight today. BLE edema improved. BP remains stable. Continue to follow with Nephrology for management of volume status. 06/14/2019: Continues to drain from Murry catheter. Continues to show weight gain, edema, and BP is trending up. Continue appreciate Nephrology input regarding fluid management. 06/13/2019: Pro-BNP: 3644 with BLE edema. elevated Cr. can contribute to elevated BNP. Appreciate Nephrology input regarding diuresis/fluid management. 06/03 BNP 3173 (3) Anemia Status: Chronic Response to Treatment: Stable Problem Text: 2 CKD hgb 8.6 06/01 sp Aranesp 300 q7D/ Fe gluc QOD (4) Diabetes mellitus with stage 4 chronic kidney disease GFR 15-29 Status: Chronic Response to Treatment: Stable Problem Text: HD glar 65 c AC TID SS U-500 06/12 given AC BG 89-104, decreased det by 20% 46 to 37 (5) Atrial fibrillation Status: Chronic Response to Treatment: Stable Problem Text: RC c HD carve, dig 125 MWF 06/12 dig 1.4 on 250 MWF, therefore, held dose and decreased to 125 MWF VKA for AC 06/12 1.9 06/11 INR 2.3 on HD VKA 5 MF/2.5 ROW (6) Hypertension Status: Chronic Response to Treatment: Stable Problem Text: stable on carve 6.25 BID (7) Physical deconditioning Status: Chronic Discussed With: Patient, Family with Pt Consent Problem Specific Plan: Monitor Clinically Problem Text: 06/10 safe for dc home, at "maximal" rehab potential (8) Sialadenitis Status: Resolved Problem Specific Plan: Consult Specialist Problem Text: 06/07 D12/14 clinda-held 2 PIPPA, ? secondary IN 06/02/19: Post I and D Warthins duct and floor of mouth sepsis. She remains Afebrile today. Per ENT continue IV ABX for 48 hours while she is being medically stabilized and then consider 2 weeks of Outpatient oral Cleocin. Today will be 48 hours. D/C tomorrow 06/01/19: S/P stone extraction/suction. Patient doing much better. She is tolerating a soft diet. Day # 4 of clindamycin. I will discuss with attending discontinuation date of abx 05/31: patient to go to ENT office for attempt to remove stone from submandibular salivary gland and facilitate drainage this am. Hopefully this will improve pain 05/30/19: Pain persists. ENT was consulted. Dr. Brasher recommended to continue with abx, sialogogues and hydration, massage and heat. We may want to consider repeat study as patient is unable to eat or drink and pain is worse. Day #2 of Clindamycin (9) Epigastric pain Status: Resolved Response to Treatment: Improving Problem Text: Resolved on panto 40 c Tums/ondan prn Zofran most likely related to esophagitis from the Clindamycin po. (10) Constipation Status: Resolved Problem Specific Plan: Monitor Clinically Problem Text: added on miralax, encouraged to get OOB. I ordered a half a bottle of mag citrate today followed by the other half in 4 hours if she has not had a bowel movement. Hopefully this will help clear up her constipation. I suspect this probably be where the mild elevation white count is coming from. Will monitor that carefully. Plan/VTE VTE Prophylaxis Ordered?: Yes (Warfarin ) Plan Therapy: PT VS, I&O, 24H, Fishbone Vital Signs/I&O Vital Signs Date Time Temp Pulse Resp B/P (MAP) Pulse Ox O2 Delivery O2 Flow Rate FiO2 06/15/19 06:00 97.5 70 18 151/72 (98) 94 06/10/19 22:29 3.0 I&O- Last 24 Hours up to 6 AM 06/15/19 06:00 Intake Total 1700 ml Output Total 3150 ml Balance -1450 ml Laboratory Data 24H LABS Laboratory Tests 2 06/14/19 11:17: Nucleated Red Blood Cells % (auto) 0.4H, Prothrombin Time 16.2H, Prothromb Time International Ratio 1.33, Anion Gap 9, Glomerular Filtration Rate 20.4L, Blood Urea Nitrogen 53H, Creatinine 2.50H, Sodium Level 143, Potassium Level 5.1, Chloride Level 113H, Carbon Dioxide Level 21, Calcium Level 8.3L, Aspartate Amino Transf (AST/SGOT) 39H, Alanine Aminotransferase (ALT/SGPT) 13, Alkaline Phosphatase 238H, Total Bilirubin 0.7, Total Protein 6.7, Albumin 2.7L, Albumin/Globulin Ratio 0.68L 06/14/19 11:27: Bedside Glucose (Misc Panel) 111 06/14/19 16:31: Bedside Glucose (Misc Panel) 125H 06/14/19 21:00: Bedside Glucose (Misc Panel) 159H 06/15/19 05:36: Immature Granulocyte % (Auto) 4.7H, White Blood Count 9.5, Red Blood Count 2.96L, Hemoglobin 8.8L, Hematocrit 30.0L, Mean Corpuscular Volume 101.4H, Mean Corpuscular Hemoglobin 29.7, Mean Corpuscular Hemoglobin Concent 29.3L, Red Cell Distribution Width 17.8H, Platelet Count 197, Neutrophils (%) (Auto) 68.2H, Lymphocytes (%) (Auto) 12.1L, Monocytes (%) (Auto) 8.2H, Eosinophils (%) (Auto) 6.1H, Basophils (%) (Auto) 0.7, Neutrophils # (Auto) 6.5, Lymphocytes # (Auto) 1.2L, Monocytes # (Auto) 0.8, Eosinophils # (Auto) 0.6H, Basophils # (Auto) 0.1, Nucleated Red Blood Cells % (auto) 0.4H, Prothrombin Time 16.3H, Prothromb Time International Ratio 1.34, Anion Gap 8, Glomerular Filtration Rate 20.4L, Blood Urea Nitrogen 48H, Creatinine 2.50H, Sodium Level 142, Potassium Level 4.6, Chloride Level 112H, Carbon Dioxide Level 22, Calcium Level 8.5L, Aspartate Amino Transf (AST/SGOT) 35, Alanine Aminotransferase (ALT/SGPT) 12, Alkaline Phosphatase 209H, Total Bilirubin 0.6, Total Protein 7.0, Albumin 2.5L, Albumin/Globulin Ratio 0.56L CBC/BMP Laboratory Tests 06/14/19 11:17 Red Blood Count 3.12 L, Mean Corpuscular Volume 101.3 H, Mean Corpuscular Hemoglobin 31.1, Mean Corpuscular Hemoglobin Concent 30.7 L, Red Cell Distribution Width 17.8 H, Calcium Level 8.3 L, Aspartate Amino Transf (AST/SGOT) 39 H, Alanine Aminotransferase (ALT/SGPT) 13, Alkaline Phosphatase 238 H, Total Bilirubin 0.7, Total Protein 6.7, Albumin 2.7 L 06/15/19 05:36 Red Blood Count 2.96 L, Mean Corpuscular Volume 101.4 H, Mean Corpuscular Hemoglobin 29.7, Mean Corpuscular Hemoglobin Concent 29.3 L, Red Cell Distribution Width 17.8 H, Calcium Level 8.5 L, Aspartate Amino Transf (AST/SGOT) 35, Alanine Aminotransferase (ALT/SGPT) 12, Alkaline Phosphatase 209 H, Total Bilirubin 0.6, Total Protein 7.0, Albumin 2.5 L, Neutrophils (%) (Auto) 68.2 H, Lymphocytes (%) (Auto) 12.1 L, Monocytes (%) (Auto) 8.2 H, Eosinophils (%) (Auto) 6.1 H, Basophils (%) (Auto) 0.7, Neutrophils # (Auto) 6.5, Lymphocytes # (Auto) 1.2 L, Monocytes # (Auto) 0.8, Eosinophils # (Auto) 0.6 H, Basophils # (Auto) 0.1 Deborah Shoemaker PLATFORM [employer] Jun 15, 2019 08:43
[2019-06-15] MEDS: LACTOBACILLUS ACIDOPHILUS CAP (BACID) PO SCH ×3 (08:52→17:10)
[2019-06-15] MEDS ORDERED: DIGOXIN 0.125 MG TAB PO SCH (09:00)
[2019-06-15] MEDS: SODIUM BICARBONATE 325 MG TAB PO SCH ×2 (09:31→20:01)
[2019-06-15] MEDS: SENOKOT S TAB PO SCH (09:31)
[2019-06-15] MEDS: TAMSULOSIN 0.4 MG CAP PO SCH (09:32)
[2019-06-15] MEDS: DOCUSATE SODIUM 100 MG CAP PO SCH ×2 (09:32→20:01)
[2019-06-15] MEDS: PANTOPRAZOLE 40MG TAB (PROTONIX) PO SCH (09:32)
[2019-06-15] MEDS: MONTELUKAST 10 MG TAB PO SCH (09:32)
[2019-06-15] MEDS: CETIRIZINE (ZyrTEC) 10 MG TAB PO SCH (09:32)
[2019-06-15] MEDS: CARVedilol 6.25 MG TAB PO SCH ×2 (09:34→20:06)
[2019-06-15] MEDS: NYSTATIN 100,000 UNITS/GM TOPICAL PWD 15 GM TOP SCH ×2 (09:35→20:03)
[2019-06-15] MEDS: SODIUM CHLORIDE NASAL 0.65% SPRAY BTL (OCEAN) PRN (09:35)
[2019-06-15] MEDS: FLUTICASONE PROP 0.05% NASAL SPRAY 16 GM (FLONASE) SCH (09:35)
[2019-06-15 11:00] VITALS: BP 166/70
--- NOTE | 2019-06-15 12:12 | REP ---
CHEST, TWO VIEWS: COMPARISON: 05/28/2019 as well as other prior exams. There is a new small right effusion with adjacent atelectasis/infiltrate. I cannot exclude mild left basilar atelectasis/infiltrate. There is cardiomegaly. There is calcification of the thoracic aorta. The mediastinal silhouette is unchanged. Left pacemaker is again noted. There are degenerative changes of the spine. IMPRESSION: New small right effusion with adjacent atelectasis/infiltrate in the right base. There may be some mild atelectasis/infiltrate in the left base. Cardiomegaly. Electronically Signed by Jose Allred MD 06/16/2019 09:02 A
--- NOTE | 2019-06-15 12:44 | IPN ---
DATE OF SERVICE: 06/15/2019 SUBJECTIVE: Patient was seen and examined at the bedside today morning. She was sitting in the recliner. She still has the indwelling Cordon catheter. She was given a dose of Bumex yesterday. She had very good urine output. Renal function continues to be stable with a creatinine around 2.5. She reports shortness of breath is slightly better today as compared with yesterday. She still reports persistent lower extremity edema. OBJECTIVE: Vital signs: Temperature is 97.1 degrees Fahrenheit, blood pressure 166/70, pulse is 70, respiratory rate of 20, saturating 97% on room air. Intake and output: Urine output recorded is 3.1 liters yesterday, 500 mL so far today since overnight. Weight in the bed scale is not available. PHYSICAL EXAMINATION: General: Patient is awake, alert, oriented times three, sitting in the recliner, in no apparent distress. Head and neck exam: Extraocular muscles intact. Pupils equally round and reactive to light. Mucous membranes are moist. Neck is supple. I could not appreciate jugular venous distention (JVD). Cardiovascular: S1, S2, regular rate. 2+ edema of the bilateral lower extremities. Respiratory: Mildly decreased breath sounds at the bases with mild crepitations. Otherwise, no active rales or rhonchi. Abdomen is soft, obese, positive bowel sounds. Genitourinary: She has an indwelling Cordon catheter. Urine in the bag is clear. Musculoskeletal: No clubbing or cyanosis. Pulses are 2+. Central nervous system (NAVIGATION OFFICER): No focal deficit. Power is 5/5 in all extremities. LAB REVIEW: CBC showed WBC of 9.5, hemoglobin 8.8, platelets are 197. BMP showed sodium 142, potassium 4.6, chloride 112, bicarbonate 22, BUN 48, creatinine is 2.5, calcium 8.5, AST 35, ALT 12, alkaline phosphatase is 209. IMAGING: A chest x-ray was done today morning. Official report is pending. As read by myself, there is small bilateral pleural effusions. CURRENT INPATIENT MEDICATIONS: The patient's medications were all reviewed by me. She was given a dose of Bumex yesterday. I would start the patient on Bumex 1 mg by mouth daily for now. ASSESSMENT AND PLAN: 1. Acute kidney injury superimposed on chronic kidney disease stage IV. Patient's creatinine has been staying stable at around 2.5. Okay to continue low dose of diuretics. Patient will need to go home with the Cordon catheter. 2. Chronic diastolic congestive heart failure. Patient has lower extremity edema and she has evidence of mild pleural effusions on both sides as well on the chest x-ray. Bumex was started yesterday. Continue 1 mg daily for now. If renal function stays stable, I would increase the dose to 1 mg twice a day. Continue current dose of Coreg. 3. Anemia and chronic kidney disease. Patient is getting Aranesp injections. Hemoglobin level is slightly suboptimal. No need of blood transfusion at this time. 4. Metabolic acidosis. It is controlled with current dose of sodium bicarbonate. 5. Urinary retention. Patient has recurrent urinary retention. She had required Cordon catheter twice during this hospitalization. She will need to go home with a Cordon catheter and followup with urology as outpatient for voiding trial.
[2019-06-15] MEDS ORDERED: DARBEPOETIN 300 MCG/0.6 ML *NON-DIALYSIS* SYRINGE (J0881) SC SCH (13:00)
[2019-06-15] MEDS: BUMETANIDE 1 MG TAB PO SCH (13:10)
[2019-06-15 13:49] VITALS: BP 120/64
[2019-06-15] MEDS: WARFARIN SOD 2.5 MG TAB PO SCH (17:10)
[2019-06-15] MEDS: GABAPENTIN 300 MG CAP PO SCH (20:01)
[2019-06-15] MEDS: ATORVASTATIN 20 MG TAB PO SCH (20:01)
[2019-06-15] MEDS: LEVEMIR (INSULIN DETEMIR) 1 UNITS/0.01ML SC SCH (20:02)
[2019-06-15] MEDS: LATANOPROST 0.005% OPHTH SOLN 2.5 ML OU SCH (20:02)
[2019-06-15] MEDS: ACETAMINOPH W/CODEINE #3 TAB UD PO PRN (20:04)
[2019-06-15 22:00] VITALS: BP 150/78
[2019-06-16 05:52] LABS: BASO # 0.1 10^3/uL (0.0-0.2); BASO % 0.8 % (0.0-1.0); EOS # 0.7 10^3/uL (0.0-0.5); EOS % 6.9 % (0.0-3.0); HEMATOCRIT 35.1 % (36.0-47.0); HEMOGLOBIN 10.7 g/dl (12.0-15.5); LYMPH # 1.1 10^3/uL (1.5-5.0); LYMPH % 10.1 % (24.0-44.0); MEAN CORPUSCULAR HEMOGLOBIN 30.5 pg (27.0-33.0); MEAN CORPUSCULAR HGB CONC 30.5 g/dl (32.0-36.5); MONO # 0.9 10^3/uL (0.0-0.8); MONO % 8.3 % (0.0-5.0); NEUTROPHILS # 7.5 10^3/uL (1.5-8.5); PLATELET COUNT, AUTOMATED 232 10^3/uL (150-450); RED BLOOD COUNT 3.51 10^6/uL (4.00-5.40); WHITE BLOOD COUNT 10.8 10^3/uL (4.0-10.0)
[2019-06-16 06:00] VITALS: BP 149/73
[2019-06-16 06:03] LABS: INR 1.27; PROTHROMBIN TIME 15.7 SECONDS (11.8-14.0)
[2019-06-16 06:19] LABS: ALBUMIN 2.8 GM/DL (3.2-5.2); BILIRUBIN,TOTAL 0.8 MG/DL (0.2-1.0); CALCIUM LEVEL 8.9 MG/DL (8.8-10.2); CREATININE FOR GFR 2.43 MG/DL (0.55-1.30); GLOMERULAR FILTRATION RATE 21.1 (>45); POTASSIUM SERUM 4.4 MEQ/L (3.5-5.1); TOTAL PROTEIN 7.8 GM/DL (6.4-8.2)
[2019-06-16] MEDS: HumaLOG INSULIN (NovoLOG) PER UNIT SC SCH ×2 (08:06→12:00)
[2019-06-16] MEDS: BUMETANIDE 1 MG TAB PO SCH (08:07)
[2019-06-16] MEDS: MONTELUKAST 10 MG TAB PO SCH (08:07)
[2019-06-16] MEDS: CETIRIZINE (ZyrTEC) 10 MG TAB PO SCH (08:07)
[2019-06-16] MEDS: FERROUS GLUCONATE 324 MG TAB PO SCH (08:07)
[2019-06-16] MEDS: TAMSULOSIN 0.4 MG CAP PO SCH (08:07)
[2019-06-16] MEDS: SODIUM BICARBONATE 325 MG TAB PO SCH (08:07)
[2019-06-16] MEDS: LACTOBACILLUS ACIDOPHILUS CAP (BACID) PO SCH ×2 (08:07→12:30)
[2019-06-16] MEDS: PANTOPRAZOLE 40MG TAB (PROTONIX) PO SCH (08:07)
[2019-06-16] MEDS: MAGNESIUM OXIDE 400 MG TAB (MAG-OX) PO SCH (08:07)
[2019-06-16] MEDS: SENOKOT S TAB PO SCH (08:08)
[2019-06-16] MEDS: DOCUSATE SODIUM 100 MG CAP PO SCH (08:08)
[2019-06-16 08:10] VITALS: BP 173/73
[2019-06-16] MEDS: NYSTATIN 100,000 UNITS/GM TOPICAL PWD 15 GM TOP SCH (08:10)
[2019-06-16] MEDS: FLUTICASONE PROP 0.05% NASAL SPRAY 16 GM (FLONASE) SCH (08:10)
[2019-06-16] MEDS: CARVedilol 6.25 MG TAB PO SCH (08:10)
[2019-06-16] MEDS ORDERED: BUME1TAB3 PO (08:24)
[2019-06-16] MEDS ORDERED: SODI325T9 PO (08:24)
[2019-06-16] MEDS ORDERED: CARV6.25 PO (08:24)
[2019-06-16] MEDS ORDERED: FLOM0.4C39 PO (08:24)
[2019-06-16] MEDS ORDERED: RISATAB3 PO (08:24)
[2019-06-16] MEDS ORDERED: PANT40TA3 PO (08:24)
[2019-06-16] MEDS ORDERED: DIGO0.12 PO (08:24)
--- NOTE | 2019-06-16 11:30 | DSES ---
DATE OF ADMISSION: 05/28/2019 DATE OF DISCHARGE: PRIMARY CARE PROVIDER: Marisel Covington ATTENDING PHYSICIAN: Dr. Roshan Covington HISTORY OF PRESENT ILLNESS: 69-year-old female, a patient of the [facility] Office in [place] who had complained of several days of pain to the right lower jaw which caused her to attend the emergency room and was noted to have sialadenitis on a CT scan. HOSPITAL COURSE: Regarding patient's sialadenitis, she was provided lemon juices, sour lemon drop candies to promote salivary flow and was placed on Ancef 1 gram IV every 8 hours. The sialadenitis resolved fairly quickly after ENT consult and transition to Cleocin for IV antibiotic treatment. The patient had quite a lengthy hospitalization secondary to multiple factors including acute on chronic renal disease. The patient is status post nephrology consult with Dr. Reynoso who advised Cordon catheter placement secondary to some urinary retention. The patient improved with this, however, had a second episode within the last four days with worsening renal function again after the catheter had been removed. Cordon catheter was placed a second time. The patient's creatinine continued to improve down to her normal rate of 2.4 to 2.5. The patient was placed on Flomax for her urinary retention as well as sodium bicarbonate by nephrology. The patient did have some decompensated congestive heart failure. Diuresis was maintained with nephrology and she has returned to an euvolemic state. The patient had significant physical debility which extended her hospital stay, requiring significant amounts of physical therapy and rehabilitation. The patient has been cleared by physical therapy to return home with services safely. Regarding patient's diabetes, her insulin was initially held secondary to poor by mouth intake. She has resumed her insulin dosing and her blood sugars have been stable on a carbohydrate consistent diet. The patient was continued on her Aranesp for anemia resultant of chronic kidney disease. CONSULTANTS: Dr. Nilesh Brasher, ENT. Dr. Woody Reynoso, Nephrology. IMAGING: The patient had two chest x-rays while inpatient, both were stable. She had a very mild pleural effusion from chest x-ray on 06/15/2019. CT of neck was completed as already in the ED for her sialadenitis. PROCEDURES: None. PHYSICAL EXAMINATION: Today, the patient's vitals are stable. She is afebrile. HEENT: Neck is supple without lymphadenopathy or jugular venous distention (JVD). Cardiovascular: Heart rate and rhythm are regular. Pulmonary: Lungs are clear. Abdomen: Soft and nontender. Bilateral lower extremities are with trace to 1+ pitting edema. ASSESSMENT: 1. Sialadenitis. 2. Acute on chronic kidney disease. 3. Urinary retention. 4. Chronic diastolic congestive heart failure with episode of decompensation. 5. Diabetes, insulin dependent. 6. Chronic anemia secondary to stage 4 chronic kidney disease. 7. Hypertension. 8. Physical deconditioning. 9. Morbid obesity. PLAN: The patient will be discharged to home. Diet is carbohydrate consistent. Activity is as tolerated. She will go home with public health services. She will go home with a Cordon catheter. She will followup with nephrology in 1-2 weeks. A urology referral is recommended due to patient's urinary retention and need for Cordon catheter placement. She will continue to followup with Dr. Hickman for her right side wound which is chronic. MEDICATIONS: - bumetanide 1 mg by mouth daily - carvedilol 6.25 mg by mouth twice a day - digoxin 125 mcg by mouth Thursday, Thursday, Thursday - Probiotic 2 with meals - pantoprazole sodium 40 mg by mouth daily - sodium bicarbonate 325 mg by mouth twice a day - tamsulosin 0.4 mg by mouth daily These are new prescriptions and were sent to patient's pharmacy. CONTINUED MEDICATIONS: - acetaminophen 500 mg two by mouth every 8 hours as needed for pain - Tylenol with codeine one tablet by mouth every 12 hours as needed for pain - albuterol sulfate HFA 2 puffs every 4 hours as needed for shortness of breath - ammonium lactate 1 dose topically twice a day as needed itching - atorvastatin calcium 40 mg by mouth at bedtime - cetirizine 10 mg by mouth daily - docusate sodium 100 mg by mouth twice a day - vitamin D2 50,000 international units by mouth weekly - ferrous gluconate 324 mg by mouth every 2 days - Flonase 1 spray to each nostril daily - gabapentin 300 mg by mouth at bedtime - insulin via sliding scale pre-meals - glargine insulin 65 units subcutaneous daily - DuoNeb every 6 hours as needed for shortness of breath - Xalatan eye drops one drop OU at bedtime - magnesium oxide 400 mg one by mouth every 2 days - montelukast sodium 10 mg by mouth daily - warfarin 5 mg tablet, she is to take 2.5 mg by mouth five times per week and 5 mg tablet by mouth twice per week MEDICATIONS STOPPED INPATIENT: - carvedilol 12.5 mg twice a day - digoxin 250 mcg by mouth three times per week - torsemide 20 mg tablet two by mouth every a.m. and 10 mg by mouth at bedtime The patient is discharged in stable and satisfactory condition with no further questions at the time of discharge.
--- NOTE | 2019-06-16 12:24 | IPN ---
DATE OF SERVICE: 06/16/2019 SUBJECTIVE: The patient was seen and examined at the bedside today morning. She is afebrile, hemodynamically stable. She is tolerating the diuretics. She continues to have a Cordon catheter. Renal function is stable, creatinine is actually slightly down to 2.4 today. She reports that shortness of breath is getting better. She only gets short of breath now when she lays down flat. OBJECTIVE: Vital Signs: Temperature is 97.4 degrees Fahrenheit, blood pressure 149/73, pulse is 69, respiratory rate of 20, saturating 93% on room air. Intake and Output: Urine output recorded is 1.2 liters yesterday and 500 mL so far today since overnight. Weight in the bed scale is not available. PHYSICAL EXAMINATION: General: The patient is awake, alert, oriented x3, sitting up in no apparent distress. Head and Neck Exam: Extraocular muscles intact. Pupils equally round and reactive to light. Mucous membranes are moist. Neck is supple. There is no jugular venous distention (JVD). Cardiovascular: S1 and S2. 2+ edema of the bilateral lower extremities. Respiratory: Mildly decreased breath sounds at the bases, otherwise no active rales or rhonchi. Abdomen: Soft, obese and positive bowel sounds. Genitourinary: She has an indwelling Cordon catheter. Musculoskeletal: No clubbing or cyanosis. Pulses are 2+. URGENT CARE NURSE PRACTITIONER: No focal deficit. Power is 5/5 in all extremities. LAB REVIEW: CBC showed WBC 10.8, hemoglobin 10.7, platelets 232. BMP showed sodium 142, potassium 4.4, chloride 111, bicarb 26, BUN 44, creatinine is 2.4 and it was 2.5 yesterday, calcium 8.9, and albumin is 2.8. IMAGING STUDIES: A chest x-ray was done yesterday which showed small right effusion with adjacent atelectasis. CURRENT INPATIENT MEDICATIONS: The patient's medications were all reviewed by me. She continues to be on Bumex 1 mg by mouth daily. I am going to change Bumex to 1 mg by mouth twice a day. No other change in the medications today as compared with yesterday. ASSESSMENT/PLAN: 1. Acute kidney injury superimposed on chronic kidney disease stage 4. Patient's renal function is improving, creatinine is down to 2.4. Okay to continue diuretics at this time. Continue the Cordon catheter. The patient will need to follow up with nephrology service within 1 week after discharge from the hospital. 2. Chronic diastolic congestive heart failure. The patient still has signs of fluid overload with lower extremity edema and mild effusions on the chest x-ray. Bumex dose is being decreased to 1 mg by mouth twice a day. Continue current dose of Coreg. The rest of the diuretics will be adjusted as outpatient. 3. Anemia and chronic kidney disease. The patient is getting Aranesp in the hospital. If needed, the patient will be started on DARSHANA as outpatient. 4. Metabolic acidosis. It is well controlled with the current dose of sodium bicarbonate 325 mg by mouth twice a day. 5. Urinary retention. Discontinue home with the Cordon catheter. Follow up with urology as outpatient for voiding trial. 6. Atrial fibrillation. It is rate controlled with digoxin and Coreg. The patient is anticoagulated. INR is therapeutic. 7. Disposition. It is okay to discharge the patient from nephrology standpoint. She will need to follow up with nephrology within 1 week of discharge from the hospital.
[2019-06-16] MEDS ORDERED: FLUBLOK(EGG FREE)(QUAD)INFLUENZA VACC 0.5ML SYRINGE (90682)18YRS&OLDER IM ONE (13:00)
[2019-06-16] MEDS ORDERED: BUMETANIDE 1 MG TAB PO SCH (21:00)
== END 2019-06-16 13:25 | disposition home health service (06) | DRG 154 ==
LOC: M ED 04:40 → M ED INP 11:16 → M MSPAV 14:20
PROVIDERS: ADMIT Family Medicine; ATTEND Family Medicine
PROC: 30233N1 Transfusion of Nonautologous Red Blood Cells into Peripheral Vein, Percutaneous Approach (ICD-10-PCS; principal; 2019-06-01)
DX: K11.21 Acute sialoadenitis (principal); I50.33 Acute on chronic diastolic (congestive) heart failure; I13.0 Hypertensive heart and chronic kidney disease with heart failure and stage 1 through stage 4 chronic kidney disease, or unspecified chronic kidney disease; N18.4 Chronic kidney disease, stage 4 (severe); I48.20 Chronic atrial fibrillation, unspecified; N17.9 Acute kidney failure, unspecified; E87.2 Acidosis; Z68.42 Body mass index [BMI] 45.0-49.9, adult; B37.81 Candidal esophagitis; E11.22 Type 2 diabetes mellitus with diabetic chronic kidney disease; M71.452 Calcium deposit in bursa, left hip; E66.01 Morbid (severe) obesity due to excess calories; G47.33 Obstructive sleep apnea (adult) (pediatric); K76.0 Fatty (change of) liver, not elsewhere classified; D63.1 Anemia in chronic kidney disease; E87.6 Hypokalemia; K11.5 Sialolithiasis; R23.4 Changes in skin texture; K74.60 Unspecified cirrhosis of liver; E78.5 Hyperlipidemia, unspecified; Z79.01 Long term (current) use of anticoagulants; Z79.899 Other long term (current) drug therapy; Z95.0 Presence of cardiac pacemaker; Z88.7 Allergy status to serum and vaccine; Z91.040 Latex allergy status; Z91.048 Other nonmedicinal substance allergy status; K59.00 Constipation, unspecified; R33.9 Retention of urine, unspecified; R13.10 Dysphagia, unspecified; K20.9 Esophagitis, unspecified; T36.8X5A Adverse effect of other systemic antibiotics, initial encounter; R53.81 Other malaise

== ENCOUNTER → 2019-06-29 | Outpatient (CLI) | payer MEDICARE ==
[~2019-06-29] MED LIST changes: +BUME1TAB3 PO; +CALC1CAP31 PO; +DIGO0.12 PO; +FLOM0.4C39 PO; -FLON1SPR; -MAGN400T PO; +MAGN400T3 PO; +RISATAB3 PO; +SODI325T9 PO; +XALA0.007 OU; +XELP0.00 OP
--- NOTE | 2019-06-30 11:39 | REP ---
Urinary tract sonography: History: Chronic kidney disease stage 4. Incomplete bladder emptying. Comparison CT study November 15, 2018. Findings: Limited scanning at the level of the urinary bladder shows no abnormality. It is normal bilaterally. No hydronephrosis is seen on either side. Right renal dimensions are 11.9 x 6.4 x 6.9 cm. The left kidney measures 11.2 x 6.1 x 5.5 cm. Exam quality is inhibited by patient body habitus and bowel gas. There are bilateral renal cortical cysts. The three cysts on the right measure 1.9, 2.2, and 2.2 cm in greatest diameter respectively. There are three cysts on the left measuring 0.9, 1.2, and 2.2 cm in greatest diameter. No mass lesion is visible. Impression: Bilateral renal cortical cysts. No hydronephrosis seen. Electronically Signed by Lorenzo Moody MD 06/30/2019 06:23 P
--- NOTE | 2019-06-30 11:52 | REP ---
Limited pelvic bladder sonography: History: Chronic kidney disease stage 4. Incomplete bladder emptying. Findings: The urine filled bladder shows smooth bladder guido. No extra vesicle mass lesion is appreciated. Prevoid bladder volume is calculated as 219 mL. Postvoid bladder volume is 180 mL, 82% postvoid residual. Impression: Postvoid residual as above. Otherwise negative. Electronically Signed by Lorenzo Moody MD 06/30/2019 06:24 P
== END ==
LOC: M RAD 16:25
PROVIDERS: ATTEND Nurse Practitioner Women's Health
DX: Q61.02 Congenital multiple renal cysts (principal); R33.9 Retention of urine, unspecified; N18.4 Chronic kidney disease, stage 4 (severe)

== ENCOUNTER 2019-06-30 13:10 | Inpatient (IN) | payer MEDICARE ==
[~2019-06-30] VITALS: Ht 154.9 cm; Wt 112.8 kg
[~2019-06-30 13:10] MED LIST changes: -CALC1CAP31 PO
[2019-06-30] MEDS ORDERED: IPRATROPIUM 0.5MG/ALBUTEROL 2.5MG INH SOL UD 3ML (DUONEB)(J7620) NEB PRN ×2 (13:45→18:30)
[2019-06-30] MEDS ORDERED: ASPIRIN 81 MG CHEW TABLET PO ONE (13:45)
[2019-06-30 14:29] LABS: ABG BASE EXCESS -7.2 (-2.0-2.0); ABG HCO3 18.5 MEQ/L (22.0-26.0); ABG O2 SATURATION 97.7 % (95.0-99.0); ABG PARTIAL PRESSURE O2 105.8 mmHg (75.0-100.0); ABG STANDARD HCO3 18.6 MEQ/L (22.0-26.0); ABG TOTAL CO2 19.7 MEQ/L (23.0-31.0); ABG pH (ARTERIAL) 7.306 UNITS (7.350-7.450)
[2019-06-30 14:57] LABS: BASO % 0.3 % (0.0-1.0); EOS # 0.5 10^3/uL (0.0-0.5); EOS % 4.6 % (0.0-3.0); HEMATOCRIT 29.2 % (36.0-47.0); HEMOGLOBIN 8.9 g/dl (12.0-15.5); LYMPH # 0.9 10^3/uL (1.5-5.0); LYMPH % 7.3 % (24.0-44.0); MEAN CORPUSCULAR HEMOGLOBIN 28.9 pg (27.0-33.0); MEAN CORPUSCULAR HGB CONC 30.5 g/dl (32.0-36.5); MEAN CORPUSCULAR VOLUME 94.8 fl (80.0-96.0); MONO # 0.8 10^3/uL (0.0-0.8); MONO % 6.7 % (0.0-5.0); NEUTROPHILS # 9.3 10^3/uL (1.5-8.5); NEUTROPHILS % 80.5 % (36.0-66.0); PLATELET COUNT, AUTOMATED 206 10^3/uL (150-450); RED BLOOD COUNT 3.08 10^6/uL (4.00-5.40); WHITE BLOOD COUNT 11.6 10^3/uL (4.0-10.0)
[2019-06-30 15:09] LABS: INR 3.48
--- NOTE | 2019-06-30 15:18 | REP ---
CHEST X-RAY: TWO VIEWS. HISTORY: Dyspnea and cough. COMPARISON STUDY: June 15, 2019 FINDINGS: A bipolar pacemaker is seen in the moderately enlarged right heart via the left side. Cardiomegaly is observed, unchanged. Monitoring electrodes are seen. Pulmonary vasculature is cephalized. There is hazy opacity in the left base obscuring left hemidiaphragm suggesting left pleural fluid. There is slight blunting of the right posterior pleural angle as well on the lateral radiograph. IMPRESSION: CHF pattern with marked cardiomegaly and small right and left pleural effusions. Left pleural effusion appears larger. Pacemaker. Electronically Signed by Lorenzo Moody MD 06/30/2019 06:28 P
--- NOTE | 2019-06-30 15:47 | ECGEPIP ---
[facility] - ED Test Date: 2019-06-30 Pat Name: SOPHIA GRIFFIN Department: Room: - Gender: Female Bulk Fluids Handler: : 1950 Requested By: ISABELLA HUDSON Order Number: [id number] Reading MD: Chayo Eugene Measurements Intervals Oakes Rate: 69 P: 171 OK: 154 QRS: 184 QRSD: 146 T: -23 QT: 401 QTc: 432 Interpretive Statements ELECTRONIC ATRIAL PACEMAKER ELECTRONIC VENTRICULAR PACEMAKER ABNORMAL RHYTHM ECG SIMILAR 05/28/19 Electronically Signed on 06-30-2019 15:46:59 EDT by Chayo Eugene
[2019-06-30 15:48] LABS: ALBUMIN 2.5 GM/DL (3.2-5.2); ALT/SGPT 16 U/L (12-78); BILIRUBIN,DIRECT 0.3 MG/DL (0.0-0.2); BILIRUBIN,TOTAL 0.7 MG/DL (0.2-1.0); BLOOD UREA NITROGEN 72 MG/DL (7-18); CALCIUM LEVEL 8.9 MG/DL (8.8-10.2); CARBON DIOXIDE LEVEL 24 MEQ/L (21-32); CHLORIDE LEVEL 107 MEQ/L (98-107); CK-MB VALUE MASS 9.2 NG/ML (<3.6); CPK CREATINE PHOSPHOKINASE 588 U/L (26-192); CREATININE FOR GFR 3.32 MG/DL (0.55-1.30); DIGOXIN LEVEL 1.3 NG/ML (0.5-2.0); GLOMERULAR FILTRATION RATE 14.7 (>45); GLUCOSE, FASTING 64 MG/DL (70-100); MB/CK RELATIVE INDEX 1.56 (< OR =4); NT-PRO BNP 3263 PG/ML (<125); POTASSIUM SERUM 3.7 MEQ/L (3.5-5.1); SODIUM LEVEL 140 MEQ/L (136-145); TOTAL PROTEIN 7.6 GM/DL (6.4-8.2); TROPONIN I < 0.02 NG/ML (< 0.10)
[2019-06-30] MEDS ORDERED: CARV12.5 PO (17:25)
[2019-06-30] MEDS ORDERED: DIGO0.12 PO (17:25)
[2019-06-30] MEDS ORDERED: CALC1CAP31 PO (17:25)
[2019-06-30] MEDS ORDERED: PANT40TA3 PO (17:25)
[2019-06-30] MEDS ORDERED: BUME1TAB3 PO (17:25)
[2019-06-30] MEDS ORDERED: RISATAB3 PO (17:25)
[2019-06-30] MEDS ORDERED: SODI325T9 PO (17:25)
--- NOTE | 2019-06-30 18:24 | HPEPDOC ---
[facility] Medical History & Physical Date of Admission Jun 30, 2019 Date of Service: Jun 30, 2019 History and Physical CHIEF COMPLAINT: Hypoxia HISTORY OF PRESENT ILLNESS: Patient is a 69F with PMH HFpEF, CKD IV, HTN, DM type 2, DEEDEE, Afib on warfarin and fatty liver presented to the ER after noticing saturation to drop into the 80s and at one point into 70s% at home. She does not report significant SOB but just weak in general. She does not know whether her LE has had increased swelling or not but family thought that her leg is somewhat swollen. She denies any significant discomfort or SOB, just feel weak. Denies any other complaints. PAST MEDICAL HISTORY: Refer to [facility] PAST SURGICAL HISTORY: Pacemaker placement, hernia repair, tonsillectomy SOCIAL HISTORY: Denies tobacco, alcohol or illicit drug use. FAMILY HISTORY: Father-Alzheimer's disease ALLERGIES: Please see below. REVIEW OF SYSTEMS: 10 point review of system negative except as stated in HPI HOME MEDICATIONS: Please see below. PHYSICAL EXAMINATION: General: No acute distress, Alert Eyes: Normal sclera, EOMI, SERGIO HENT: Atraumatic, neck supple, moist mucous membranes Cardiovascular: Normal rate. 1-2+ LE pitting edema b/l. Pulmonary: Clear to auscultation b/l, no wheezing GI: Soft, nontender, nondistended Skin: Warm and dry Neuro: CN grossly intact. No focal deficits. Strengths equal b/l. Psych: oriented x 3 LABORATORY DATA: See below. IMAGING: CXR- IMPRESSION: CHF pattern with marked cardiomegaly and small right and left pleural effusions. Left pleural effusion appears larger. Pacemaker. MICROBIOLOGY: Please see below. ASSESSMENT AND PLAN: 1. HFpEF exacerbation - likely etiology of hypoxia. LE swelling in addition to small b/l pleural effusions. - Currently saturating well with 2L o2, does not wear oxygen at home. Can likely titrate down. - Discussed with nephrology. Will gently diurese at this time. - To get 60mg IV of lasix and continue doses tomorrow. - Monitor I/O with murry catheter. daily weight. 2. PIPPA CKD IV - Likely 2/2 hypoperfusion from cardiac etiology. - Monitor. Nephrology to follow. 3. DM - resume home dose insulin. - ISS with hypoglycemic protocol in place. 4. HTN - Resume home meds. 5. Afib - Resume home meds. On Warfarin. 6. DEEDEE Code status: Full code Vital Signs Vital Signs Date Time Temp Pulse Resp B/P (MAP) Pulse Ox O2 Delivery O2 Flow Rate FiO2 06/30/19 16:46 122/72 (89) 06/30/19 15:10 69 96 Nasal Cannula 2.0 06/30/19 13:11 98.2 20 Laboratory Data Labs 24H Laboratory Tests 2 06/30/19 14:17: Blood Gas Bicarbonate Standard 18.6L, Arterial Blood pH 7.306L, Arterial Blood Partial Pressure CO2 38.0, Arterial Blood Partial Pressure O2 105.8H, Arterial Blood Total CO2 19.7L, Arterial Blood HCO3 18.5L, Arterial Blood Base Excess - 7.2L, Arterial Blood Oxygen Saturation 97.7 06/30/19 14:29: Immature Granulocyte % (Auto) 0.6, Neutrophils (%) (Auto) 80.5H, Lymphocytes (%) (Auto) 7.3L, Monocytes (%) (Auto) 6.7H, Eosinophils (%) (Auto) 4.6H, Basophils (%) (Auto) 0.3, Neutrophils # (Auto) 9.3H, Lymphocytes # (Auto) 0.9L, Monocytes # (Auto) 0.8, Eosinophils # (Auto) 0.5, Basophils # (Auto) 0.0, Nucleated Red Blood Cells % (auto) 0.0, Prothrombin Time 35.0H, Prothromb Time International Ratio 3.48, Anion Gap 9, Glomerular Filtration Rate 14.7L, Lactic Acid Level 1.4, Calcium Level 8.9, Total Bilirubin 0.7, Direct Bilirubin 0.3H, Aspartate Amino Transf (AST/SGOT) 37, Alanine Aminotransferase (ALT/SGPT) 16, Alkaline Phosphatase 173H, Total Creatine Kinase 588H, Creatine Kinase MB 9.2H, Creatine Kinase MB Relative Index 1.56, Troponin I < 0.02, QL-Avr-M-Type Natriuretic Peptide 3263H, Total Protein 7.6, Albumin 2.5L, Albumin/Globulin Ratio 0.49L, Digoxin Level 1.3 CBC/BMP Laboratory Tests 06/30/19 14:29 Home Medications Scheduled Bumetanide (Bumetanide) 1 Mg Tablet, 1 MG PO DAILY Calcitriol (Calcitriol) 0.25 Mcg Capsule, 0.25 MCG PO 3XW MON, WED, FRI Carvedilol (Carvedilol) 12.5 Mg Tablet, 12.5 MG PO BID Cetirizine HCl (Cetirizine HCl) 10 Mg Tablet, 10 MG PO DAILY Digoxin (Digoxin) 125 Mcg Tablet, 125 MCG PO 3XW MON, WED, FRI Docusate Sodium (Colace) 100 Mg Cap, 100 MG PO BID Ergocalciferol (Vitamin D2) (Vitamin D2) 50,000 Unit Cap, 50,000 UNIT PO 1XWK THURSDAY MORNINGS Ferrous Gluconate (Ferrous Gluconate) 324 Mg Tab, 324 MG PO Q2D Fluticasone Propionate (Flonase Allergy Relief) 50 Mcg/Act Spr, 1 SPRAY NARES DA MONIQUE Gabapentin (Neurontin) 300 Mg Cap, 300 MG PO QHS Insulin (Humulin R U-500) 1 Units/0.002 Ml Inj, 1 DOSE SC AC Insulin Glargine,Hum.rec.anlog (Basaglar Kwikpen U-100) 100 Unit/1 Ml Insuln.pen, 65 UNIT SC DAILY L.acidoph/L.bulg/B.bif/S.therm (Letty-Bid Caplet) 1 Each Tablet, 2 TAB PO WM Latanoprost (Xalatan) 0.005% 2.5ML Drops, 1 DROP OU QHS Magnesium Oxide (Magnesium Oxide) 400 Mg Tablet, 400 MG PO Q2D Montelukast Sodium (Montelukast Sodium) 10 Mg Tab, 10 MG PO DAILY Pantoprazole Sodium (Pantoprazole Sodium) 40 Mg Tablet.dr, 40 MG PO DAILY Sodium Bicarbonate (Sodium Bicarbonate) 325 Mg Tablet, 325 MG PO BID Vit C/E/Zn/Coppr/Lutein/Zeaxan (Preservision Areds 2 Softgel) 1 Each Capsule, 1 CAP PO BID Warfarin Sodium (Warfarin Sodium) 5 Mg Tablet, 5 MG PO 5XW /THU//SAT/SUN EVENING Warfarin Sodium (Warfarin Sodium) 5 Mg Tablet, 2.5 MG PO 2XW MON/FRI EVENINGS Scheduled PRN Acetaminophen (Acetaminophen) 500 Mg Tablet, 1,000 MG PO Q8H PRN for PAIN Acetaminophen with Codeine (Tylenol with Codeine #3 Tablet) 1 Each Tablet, 1 TAB PO Q12H PRN for PAIN PT TAKES WHEN SHE GOES TO WOUND CARE ON TUESDAYS Albuterol Sulfate (Ventolin Hfa) 18 Gm Hfa.aer.ad, 2 PUFF INH Q4H PRN for SHORTNESS OF BREATH Ammonium Lactate (Ammonium Lactate) 12 % Cre, 1 APPLIC TOP BID PRN for ITCHING APPLY TO FEET Ipratropium/Albuterol Sulfate (Iprat-Albut 0.5-3(2.5) mg/3 ml) 3 Ml Ampul.neb, 1 VIAL INH Q6H PRN for SHORTNESS OF BREATH Allergies Coded Allergies: TAPE (Verified Allergy, Intermediate, reddness swelling, 04/26/19) tetanus immune globulin (Verified Allergy, Intermediate, SWELLING, 04/26/19) Contrast Media (Verified Adverse Reaction, Intermediate, kidney failure, 04/26/19) A-FIB/CHADSVASC A-FIB History Current/History of A-Fib/PAF?: Yes Current PO Anticoag Therapy: Yes ANUJ KRUEGER MD Jun 30, 2019 18:24
[2019-06-30] MEDS ORDERED: ACETAMINOPHEN 500 MG TAB PO PRN (18:30)
[2019-06-30] MEDS ORDERED: DEXTROSE 50% 50 ML SYRINGE IV PRN (18:45)
[2019-06-30] MEDS ORDERED: GLUCAGON FOR INJ 1 MG VIAL (J1610) SC PRN (18:45)
[2019-06-30 19:10] LABS: FERRITIN 184 NG/ML (8-252); IRON (FE) 34 UG/DL (50-170); PERCENT SATURATION 15.4 % (13.2-45.0); TOTAL IRON BINDING CAPACITY 221 UG/DL (250-450)
[2019-06-30 19:41] LABS: INR 3.72; PROTHROMBIN TIME 36.9 SECONDS (11.8-14.0)
[2019-06-30] MEDS ORDERED: FUROSEMIDE 100 MG/10 ML VIAL (J1940) IV ONE (20:00)
[2019-06-30] MEDS: HumaLOG INSULIN (NovoLOG) PER UNIT SC SCH (21:00)
[2019-06-30 21:08] VITALS: BP 138/65
--- NOTE | 2019-06-30 21:30 | CR ---
DATE OF CONSULTATION: 06/30/2019 REQUESTING PHYSICIAN: Dr. Leanne Yeager CONSULTING PHYSICIAN: Dr. Reynoso REASON FOR CONSULTATION: Management of acute kidney injury superimposed on chronic kidney disease stage IV and fluid overload. CHIEF COMPLAINT: The patient presented to the hospital today with hypoxemia. HISTORY OF THE PRESENT ILLNESS: Gerson Vargas is a 69-year-old female with a past medical history of her chronic kidney disease stage IV, best baseline creatinine of 2.5 as per recent hospitalization and outpatient clinic followup. She is well known to nephrology service. She was recently hospitalized a few weeks ago with sialadnitis. Hospital course was complicated by esophagitis, acute renal failure, urinary retention. The patient got a Cordon catheter placed, and she was discharged home. She followed up with me a few days ago. At that time, her renal function was stable. The patient had the Cordon catheter in when I saw her. She followed up with urology for a voiding trial and as reported by the patient, she was able to void in the office, Cordon catheter was removed. However, the patient reports that for the past 3-4 days, she kept on getting progressive shortness of breath. She has a home pulse ox monitor, and as reported by the patient, her pulse ox at her home was in high 70s. The patient also reported lower extremity edema. Her sister was also present at the bedside, and she told that the patient is getting a little bit more confused as well, and she has lack of energy and more drowsiness I saw and evaluated the patient at the bedside in the emergency room. The patient looks slightly more drowsy and slow to me today as compared with a few days ago. She was wearing nasal cannula. She is in mild respiratory distress. The patient is admitted under the hospitalist service with congestive heart failure (CHF) exacerbation. Nephrology service was called for further help in the optimization of this patient's fluid status with acute kidney injury superimposed on chronic kidney disease stage IV because her creatinine on arrival was 3.3, which is significantly higher than her baseline. PAST MEDICAL HISTORY: Past medical history of chronic kidney disease stage IV, baseline creatinine of 2.5, history of urinary retention requiring Cordon catheterization during recent hospitalization, history of congestive heart failure with preserved ejection fraction, morbid obesity, hypertension, diabetes mellitus type 2, obstructive sleep apnea, atrial fibrillation, anticoagulated with warfarin, fatty liver disease. PAST SURGICAL HISTORY: Status post pacemaker placement, status post hernia repair, status post tonsillectomy and recent stone removal and incision and drainage of the abscess of the salivary gland because of sialadenitis. ALLERGIES: The patient is allergic to IV CONTRAST MEDIA, TAPE and TETANUS IMMUNOGLOBULIN. FAMILY HISTORY: No significant family history of end-stage renal disease requiring hemodialysis. There is positive family history of Alzheimer's disease in the father. SOCIAL HISTORY: The patient denies any smoking, illicit drug abuse or alcohol abuse. She lives with her . REVIEW OF SYSTEMS: Constitutional: Patient reports feeling weak and tired. Eyes: She denies any blurry vision, double vision. ENT: She denies any dysphagia, odynophagia, ear discharge. Cardiovascular: She reports orthopnea. She reports a moderate amount of lower extremity edema. Respiratory: She reports shortness of breath, some cough with whitish phlegm. Gastrointestinal (GI): She denies any nausea, vomiting. She does report decreased appetite. Genitourinary: She reports recent removal of the indwelling Cordon catheter. Musculoskeletal: She denies any muscle aches and pains. Skin: She denies any rashes. Hematology/Oncology: She denies any easy bleeding or bruising. Endocrine: She reports a history of diabetes mellitus type 2. All other review of systems is negative. PHYSICAL EXAMINATION: General: The patient is awake, alert, oriented times three, sitting up in the bed in mild respiratory distress. Vital signs: Temperature is 98.2 degrees Fahrenheit, blood pressure is 122/72, pulse is 69, respiratory rate of 20, saturating 97% on nasal cannula at 2 liters. Head and neck exam: Extraocular muscles intact. Pupils equally round and reactive to light. Mucous membranes are moist. Neck is supple. I would could not appreciate the jugular venous distention (JVD) because of the patient's body habitus. Cardiovascular: S1, S2, regular rate, 2+ edema of the bilateral lower extremities. Respiratory: Decreased breath sounds at the bases, inspiratory crackles bilaterally at the bases on deep inspiration. Abdomen: Soft, obese, positive bowel sounds. Nontender. I could not appreciate any organomegaly or ascites. Genitourinary: Bladder is not palpable. Previous indwelling Cordon catheter has been removed now. Musculoskeletal: No clubbing or cyanosis. Pulses are 2+. Central nervous system (PIPE WELDER): The patient has no asterixis, but she is slow to respond, and she is forgetful today. She was not able to quickly do the serial subtraction of 3. LAB REVIEW: CBC showed a WBC of 11.6, hemoglobin 8.9, platelets are 206. Coagulation study showed INR was 3.7. ABG done in the emergency room showed pH of 7.36, pCO2 of 38, pO2 of 105, bicarbonate is 18.5, O2 sat is 97.7%. BMP showed sodium 140, potassium 3.7, chloride 107, bicarbonate 24, BUN 72, creatinine is 3.3, glucose level was 64, lactic acid is 1.4, iron is 34, TIBC is 221, transferrin saturation is 15.4, ferritin is 184, AST is 37, ALT is 16, alkaline phosphatase is 173, BNP is 3263, albumin is 2.5. Digoxin level is 1.3. IMAGING: A chest x-ray was done in the emergency room today, which showed CHF pattern with marked cardiomegaly, small right and left pleural effusions. Left pleural effusion appears larger than the right, and there was a pacemaker. HOME MEDICATIONS: The patient's home medications include Tylenol as needed, Tylenol with Codeine as needed, albuterol as needed, Bumex 1 mg by mouth daily, calcitriol 0.25 mcg by mouth three times a week, Coreg 12.5 mg by mouth twice a day, cetirizine 10 mg daily, digoxin 125 mcg by mouth three times a week, Colace 100 mg by mouth twice a day, vitamin D 50,000 units once a week, iron tablet at 324 mg by mouth every other day, gabapentin 300 mg nightly, insulin Basaglar 65 units subcu daily, magnesium oxide 400 mg by mouth every other day, montelukast 10 mg by mouth daily, Protonix 40 mg daily, sodium bicarbonate 325 mg by mouth twice a day, warfarin 5 mg by mouth five times a week and 2.5 mg by mouth twice a week. CURRENT INPATIENT MEDICATIONS: The patient's medications in the hospital include Tylenol with Codeine, DuoNeb nebulizations, Coreg 12.5 mg by mouth twice a day, cetirizine 10 mg by mouth daily, digoxin was ordered as daily; I have changed it to 0.125 mg by mouth Thursday, Thursday, Thursday. The patient was given one dose of Lasix 60 mg IV tonight, and she will be started on 40 mg IV twice a day starting tomorrow morning. She is on gabapentin 300 mg nightly, Levemir 65 units subcu daily, insulin sliding scale, magnesium oxide 400 mg by mouth every 2 days, montelukast 10 mg by mouth daily, Protonix 40 mg by mouth daily, sodium bicarbonate 325 mg by mouth twice a day, and warfarin 2.5 mg on Thursday and Thursday and 5 mg on Thursday, Thursday, Thursday, and Thursday. ASSESSMENT: 69-year-old female with a history of chronic kidney disease stage IV, hypertension, diabetes mellitus type 2, morbid obesity, heart failure with preserved ejection fraction and history of urinary retention, admitted at this time with shortness of breath secondary to pulmonary edema and CHF exacerbation, along with acute kidney injury superimposed on chronic kidney disease stage IV. PLAN: 1. Acute kidney injury superimposed on chronic kidney disease stage IV. The patient is in renal failure. Baseline creatinine is 2.5. It has bumped up to 3.3 today. The patient has a history of urinary retention as well and every time she got a Cordon catheter, her renal function improved. I am going to have the Cordon catheter placed again. Because of the congestive heart failure, the patient is being started on diuretics as well. I shall try to optimize this patient with diuretics. However, if the patient does not respond to treatment over the next 24-48 hours, then she might need to start hemodialysis. 2. Acute congestive heart failure exacerbation. The patient has a history of heart failure with preserved ejection fraction. There is evidence of fluid overload on the imaging. She was given a dose of 60 mg of IV Lasix today, and she is being started on 40 mg IV twice a day. Continue home dose of carvedilol 12.5 mg by mouth twice a day. She is not a candidate for angiotensin-converting enzyme (ELPIDIO) inhibitors or angiotensin receptor blockers at this time. Okay to continue nebulizations. 3. History of atrial fibrillation. The patient has a pacemaker. Continue digoxin 0.125 mg by mouth Thursday, Thursday, Thursday and digoxin levels done today are within the acceptable range. Continue warfarin anticoagulation. 4. History of urinary retention. The patient is going to have the Cordon catheter placed again because she is in renal failure, and we need to monitor her urine output and response to the diuretics. 5. Anemia in chronic kidney disease. The patient's iron levels are low. I am going to start her on IV Venofer. The patient will also be started on Mircerea. She was receiving Mircera during previous hospitalization as well. 6. Metabolic acidosis. The patient is getting sodium bicarbonate 325 mg by mouth twice a day. Continue current dose. 7. Diabetes mellitus type 2. Continue insulin Levemir, insulin sliding scale. Avoid use of metformin with this renal function at this time. Thank you for involving me in the care of this patient. I shall be happy to follow the patient along with you tomorrow morning.
[2019-06-30] MEDS: GABAPENTIN 300 MG CAP PO SCH (22:05)
[2019-06-30] MEDS: SODIUM BICARBONATE 325 MG TAB PO SCH (22:06)
[2019-06-30] MEDS: LATANOPROST 0.005% OPHTH SOLN 2.5 ML OU SCH (22:06)
[2019-06-30] MEDS: CARVedilol 12.5 MG TAB PO SCH (22:06)
[2019-06-30] MEDS: GLUCOSE 4 GM CHEW TABLET PO PRN ×2 (23:05→23:41)
[2019-07-01 05:30] VITALS: BP 137/62
[2019-07-01 06:40] LABS: HEMATOCRIT 28.5 % (36.0-47.0); HEMOGLOBIN 8.7 g/dl (12.0-15.5); MEAN CORPUSCULAR HEMOGLOBIN 29.5 pg (27.0-33.0); MEAN CORPUSCULAR HGB CONC 30.5 g/dl (32.0-36.5); MEAN CORPUSCULAR VOLUME 96.6 fl (80.0-96.0); PLATELET COUNT, AUTOMATED 197 10^3/uL (150-450); RED BLOOD COUNT 2.95 10^6/uL (4.00-5.40); WHITE BLOOD COUNT 8.6 10^3/uL (4.0-10.0)
[2019-07-01 06:54] LABS: INR 4.2; PROTHROMBIN TIME 40.7 SECONDS (11.8-14.0)
[2019-07-01 07:10] LABS: BLOOD UREA NITROGEN 72 MG/DL (7-18); CALCIUM LEVEL 8.4 MG/DL (8.8-10.2); CARBON DIOXIDE LEVEL 22 MEQ/L (21-32); CHLORIDE LEVEL 108 MEQ/L (98-107); CREATININE FOR GFR 3.25 MG/DL (0.55-1.30); GLOMERULAR FILTRATION RATE 15.1 (>45); GLUCOSE, FASTING 83 MG/DL (70-100); POTASSIUM SERUM 3.5 MEQ/L (3.5-5.1); SODIUM LEVEL 141 MEQ/L (136-145)
[2019-07-01] MEDS: HumaLOG INSULIN (NovoLOG) PER UNIT SC SCH ×4 (07:30→21:00)
[2019-07-01] MEDS ORDERED: LEVEMIR (INSULIN DETEMIR) 1 UNITS/0.01ML SC SCH (09:00)
[2019-07-01] MEDS ORDERED: DARBEPOETIN 100 MCG/0.5 ML *NON-DIALYSIS* SYRINGE (J0881) SC SCH (09:00)
[2019-07-01] MEDS ORDERED: DIGOXIN 0.125 MG TAB PO SCH (09:00)
[2019-07-01 09:26] LABS: CHOLESTEROL LEVEL 109 MG/DL (<200); CHOLESTEROL RISK RATIO 3.516 (<5); HDL CHOLESTEROL 31 MG/DL (>40); LDL CHOLESTEROL 35 MG/DL (<100); NON-HDL-C 78 MG/DL; TRIGLYCERIDES LEVEL 217 MG/DL (<150)
--- NOTE | 2019-07-01 09:43 | IPNPDOC ---
Subjective Date Seen The patient was seen on 07/01/19. Subjective Chief Complaint/HPI Denies SOB. NO complaints today Constitutional: Denies: Chills, Fever Pulmonary: Denies: Dyspnea, Cough Cardiovascular: Denies: Chest Pain, Palpitations Gastrointestinal: Denies: Nausea, Vomiting, Abdominal Pain, Diarrhea, Constipation Objective Physical Examination General Exam: Positive: Alert, No Acute Distress Chest Exam: Positive: Rales (Bibasilar crackles); Negative: Rhonchi, Wheezing Heart Exam: Positive: Rate Normal, Regular Rhythm Extremity Exam: Positive: Edema (1+ edema BL) Assessment /Plan Problems (1) Decreased alertness Status: Acute Problem Text: seems more groggy this am Difficulty keeping eyes open, but responds to verbal stimuli and answers questions Check ABG (H/O DEEDEE non-compliant with CPAP) Check Blood Glucose (Had hyp oglycemia overnight) and ammonia level (probably cirrhosis (2) CHF (congestive heart failure) Permanent Comment: 06/01/19: Echocardiogram shows grade 1 diastolic dysfunction Last Edited By: Bryant Arriaga MD on Jun 04, 2019 23:18 Status: Acute Problem Text: 07/01: Diuretics per Nephrology - Not much diuresis so far Monitor fluid status. Left pleural effusion is large - will need to consider Paracenteisis if no improvement with diuresis CXR on admission: IMPRESSION: CHF pattern with marked cardiomegaly and small right and left pleural effusions. Left pleural effusion appears larger. Pacemaker. (3) Acute on chronic kidney failure Status: Acute Problem Text: Per nephrology Cordon placed for Urinary Retention, but renal function remains essentially stable c/w admission (4) Atrial fibrillation Status: Chronic Response to Treatment: Stable Problem Text: Rate controlled on Dig - level therapeutic Cont Coreg Coumadin held for high INR (5) Diabetes mellitus with stage 4 chronic kidney disease GFR 15-29 Status: Chronic Problem Text: Hypoglycemia overnight - Holding Lantus for now and monitor (6) Anemia Status: Chronic Response to Treatment: Stable Problem Text: secondary to CKD Iron infusion ordered as well (7) Morbid obesity Status: Chronic (8) DEEDEE (obstructive sleep apnea) Status: Chronic Problem Text: Does not wear CPAp because " I don't need it when I am sleeping up in my recliner or in hospital bed" She has not used CPAP in a long time (9) ELENA (nonalcoholic steatohepatitis) Status: Chronic Problem Text: Probable cirrhosis Plan/VTE VTE Prophylaxis Ordered?: Yes (On chronic coumadin) Plan Therapy: PT VS, I&O, 24H, Fishbone Vital Signs/I&O Vital Signs Date Time Temp Pulse Resp B/P (MAP) Pulse Ox O2 Delivery O2 Flow Rate FiO2 07/01/19 06:00 70 100 Nasal Cannula 2.0 07/01/19 05:30 137/62 (87) 07/01/19 05:29 97.7 20 I&O- Last 24 Hours up to 6 AM 07/01/19 05:59 Intake Total 480 ml Output Total 525 ml Balance -45 ml Laboratory Data 24H LABS Laboratory Tests 2 06/30/19 14:17: Blood Gas Bicarbonate Standard 18.6L, Arterial Blood pH 7.306L, Arterial Blood Partial Pressure CO2 38.0, Arterial Blood Partial Pressure O2 105.8H, Arterial Blood Total CO2 19.7L, Arterial Blood HCO3 18.5L, Arterial Blood Base Excess -7.2L, Arterial Blood Oxygen Saturation 97.7 06/30/19 14:29: Immature Granulocyte % (Auto) 0.6, Neutrophils (%) (Auto) 80.5H, Lymphocytes (%) (Auto) 7.3L, Monocytes (%) (Auto) 6.7H, Eosinophils (%) (Auto) 4.6H, Basophils (%) (Auto) 0.3, Neutrophils # (Auto) 9.3H, Lymphocytes # (Auto) 0.9L, Monocytes # (Auto) 0.8, Eosinophils # (Auto) 0.5, Basophils # (Auto) 0.0, Nucleated Red Blood Cells % (auto) 0.0, Prothrombin Time 35.0H, Prothromb Time International Ratio 3.48, Anion Gap 9, Glomerular Filtration Rate 14.7L, Lactic Acid Level 1.4, Calcium Level 8.9, Iron Level 34L, Total Iron Binding Capacity 221L, Transferrin % Saturation 15.4, Ferritin 184, Total Bilirubin 0.7, Direct Bilirubin 0.3H, Aspartate Amino Transf (AST/SGOT) 37, Alanine Aminotransferase (ALT/SGPT) 16, Alkaline Phosphatase 173H, Total Creatine Kinase 588H, Creatine Kinase MB 9.2H, Creatine Kinase MB Relative Index 1.56, Troponin I < 0.02, XE-Nhr-P-Type Natriuretic Peptide 3263H, Total Protein 7.6, Albumin 2.5L, Albumin/Globulin Ratio 0.49L, Digoxin Level 1.3 06/30/19 19:19: Prothrombin Time 36.9H, Prothromb Time International Ratio 3.72 06/30/19 23:02: Bedside Glucose (Misc Panel) 53L 06/30/19 23:26: Bedside Glucose (Misc Panel) 56L 07/01/19 00:05: Bedside Glucose (Misc Panel) 64L 07/01/19 05:32: Bedside Glucose (Misc Panel) 85 07/01/19 05:42: Nucleated Red Blood Cells % (auto) 0.0, Prothrombin Time 40.7H, Prothromb Time International Ratio 4.20, Anion Gap 11, Glomerular Filtration Rate 15.1L, Calcium Level 8.4L CBC/BMP Laboratory Tests 06/30/19 14:29 07/01/19 05:42 YUMIKO QUESADA PA-C Jul 01, 2019 09:43
[2019-07-01] MEDS: FUROSEMIDE 40 MG/4 ML VIAL (J1940) IV SCH ×2 (09:56→17:27)
[2019-07-01] MEDS: CETIRIZINE (ZyrTEC) 10 MG TAB PO SCH (09:57)
[2019-07-01] MEDS: MAGNESIUM OXIDE 400 MG TAB (MAG-OX) PO SCH (09:57)
[2019-07-01] MEDS: CARVedilol 12.5 MG TAB PO SCH ×2 (09:57→21:54)
[2019-07-01] MEDS: IRON SUCROSE 200 MG in NS 100 ML IV SCH (09:57)
[2019-07-01] MEDS: PANTOPRAZOLE 40MG TAB (PROTONIX) PO SCH (09:57)
[2019-07-01] MEDS: MONTELUKAST 10 MG TAB PO SCH (09:58)
[2019-07-01] MEDS: DIGOXIN 0.125 MG TAB PO SCH (09:58)
[2019-07-01 10:14] LABS: HEMOGLOBIN A1c 5.9 %
[2019-07-01 10:23] LABS: ABG BASE EXCESS -5.5 (-2.0-2.0); ABG O2 SATURATION 96.9 % (95.0-99.0); ABG PARTIAL PRESSURE CO2 45.7 mmHg (35.0-45.0); ABG PARTIAL PRESSURE O2 91.8 mmHg (75.0-100.0); ABG STANDARD HCO3 19.9 MEQ/L (22.0-26.0); ABG TOTAL CO2 22.4 MEQ/L (23.0-31.0)
[2019-07-01 10:37] LABS: HEPATITIS B SURFACE ANTIBODY NEGATIVE (POSITIVE)
[2019-07-01 10:49] LABS: HEPATITIS B SURFACE ANTIGEN NEGATIVE (NEGATIVE)
[2019-07-01 11:06] LABS: HEPATITIS B CORE ANTIBODY IGM NEGATIVE (NEGATIVE)
[2019-07-01 11:19] LABS: HEPATITIS C VIRUS ABY INDEX 0.1 INDEX (<0.8)
--- NOTE | 2019-07-01 11:49 | IPN ---
DATE: 07/01/2019 SUBJECTIVE: The patient was seen and examined the bedside this morning. She is afebrile, hemodynamically stable. She was sitting up and getting ready to eat her breakfast when I saw her. She was started on IV diuretics yesterday. She also got a Cordon catheter placed. She is nonoliguric at this time. There is slight improvement in the renal function. Creatinine is down to 3.2 and her breathing is getting better today as compared with yesterday. OBJECTIVE: Vital signs: Temperature is 97.7 degrees Fahrenheit, blood pressure 137/62, pulse is 70, respiratory of 20, saturating 100% on nasal cannula at 2 liters. Intake and output: Urine output recorded yesterday 525 mL. Urine output so far today since overnight is 625 mL. Weight in the bed scale is 112. PHYSICAL EXAMINATION: GENERAL: The patient is awake, alert, oriented times three, laying in the bed in no apparent distress. HEAD AND NECK EXAM: Extraocular muscles intact. Pupils equally round and reactive to light. Mucous membranes are moist. NECK: Supple. I could not appreciate the jugular venous distention (JVD) because of the body habitus. CARDIOVASCULAR: S1, S2. regular rate 2+ edema of the bilateral lower extremities. RESPIRATORY: Decreased breath sounds at the bases, decreased vocal resonance bilaterally at the bases. ABDOMEN: Soft, obese, positive bowel sounds. GENITOURINARY: She has an indwelling Cordon catheter. MUSCULOSKELETAL: No clubbing or cyanosis. Pulses are 2+. MARK UP DESIGNER: The patient has no asterixis. She is awake. She follows commands but she does have slow response to the questions. LAB REVIEW: CBC showed WBC 8.6, hemoglobin 8.7, platelets of 197. ABG done this morning showed a pH of 7.28, pCO2 45, pO2 of 91, bicarb 21, O2 sat 96%. BMP showed sodium 141, potassium 3.5, chloride 108, bicarb 22, BUN 72, creatinine 3.2. It was 3.3 yesterday, calcium 8.4, ammonia level 23, iron level 34, TIBC 221, transferrin saturation 50.4, ferritin was 184. CURRENT INPATIENT MEDICATIONS: The patient's medications were all reviewed by me. He has been started on Venofer 100 mg IV daily. She continues to be on Lasix 40 mg IV twice a day. Warfarin is on hold at this time because INR is 4.2. ASSESSMENT/PLAN: 1. Acute kidney injury superimposed on chronic kidney disease stage IV: Patient's baseline creatinine is 2.5, creatinine is slightly better today as compared with yesterday. She is responding to the diuretics. Continue to monitor for now. Electrolytes are within the acceptable range. Acid base level is optimal for now. No urgent need to do hemodialysis. However, if renal function does not improve over the next 1-2 days then patient will get tunneled dialysis catheter for initiation of dialysis. 2. Acute decompensated diastolic congestive heart failure: The patient has evidence of congestion on the chest x-ray. She was fluid overloaded yesterday. She was started on diuretics. Continue current dose of Lasix 40 mg IV twice a day. Continue Coreg 12.5 mg by mouth twice a day. 3. Atrial fibrillation status post pacemaker: Continue digoxin Thursday, Thursday, Thursday. Levels are adequate. Warfarin is on hold because of supratherapeutic INR. 4. Anemia secondary to iron deficiency and chronic kidney disease. The patient has been started on Aranesp and IV iron. No need of blood transfusion at this time. 5. Chronic metabolic acidosis: Continue current dose of sodium bicarbonate 325 mg by mouth twice a day. 6. Obstructive sleep apnea and CO2 retention. The patient needs to wear her CPAP while she is sleeping. The patient is noncompliant with CPAP at home.
[2019-07-01] MEDS: SODIUM BICARBONATE 325 MG TAB PO SCH ×2 (12:05→21:54)
[2019-07-01] MEDS: ACETAMINOPH W/CODEINE #3 TAB UD PO PRN (13:47)
[2019-07-01 14:00] VITALS: BP 155/73
[2019-07-01] MEDS ORDERED: WARFARIN SOD 2.5 MG TAB PO SCH (17:00)
[2019-07-01] MEDS: GABAPENTIN 300 MG CAP PO SCH (21:54)
[2019-07-01 22:00] VITALS: BP 124/56
[2019-07-01] MEDS: LATANOPROST 0.005% OPHTH SOLN 2.5 ML OU SCH (22:05)
[2019-07-02 06:00] VITALS: BP 107/54
[2019-07-02 07:23] LABS: HEMATOCRIT 29.2 % (36.0-47.0); MEAN CORPUSCULAR HEMOGLOBIN 29.6 pg (27.0-33.0); MEAN CORPUSCULAR HGB CONC 30.8 g/dl (32.0-36.5); MEAN CORPUSCULAR VOLUME 96.1 fl (80.0-96.0); PLATELET COUNT, AUTOMATED 211 10^3/uL (150-450); RED BLOOD COUNT 3.04 10^6/uL (4.00-5.40); WHITE BLOOD COUNT 9.2 10^3/uL (4.0-10.0)
[2019-07-02 07:35] LABS: INR 3.77; PROTHROMBIN TIME 37.3 SECONDS (11.8-14.0)
[2019-07-02 07:46] LABS: ALBUMIN 2.2 GM/DL (3.2-5.2); CALCIUM LEVEL 8.3 MG/DL (8.8-10.2); CREATININE FOR GFR 3.25 MG/DL (0.55-1.30); GLOMERULAR FILTRATION RATE 15.1 (>45); PHOSPHORUS LEVEL 6.7 MG/DL (2.5-4.9); POTASSIUM SERUM 3.8 MEQ/L (3.5-5.1)
[2019-07-02 09:00] VITALS: O2SAT 98
[2019-07-02] MEDS: HumaLOG INSULIN (NovoLOG) PER UNIT SC SCH ×4 (10:18→21:00)
[2019-07-02] MEDS: FUROSEMIDE 40 MG/4 ML VIAL (J1940) IV SCH ×2 (10:19→17:41)
[2019-07-02] MEDS: SODIUM BICARBONATE 325 MG TAB PO SCH ×2 (10:19→21:28)
[2019-07-02] MEDS: ACETAMINOPH W/CODEINE #3 TAB UD PO PRN (10:20)
[2019-07-02] MEDS: CARVedilol 12.5 MG TAB PO SCH ×2 (10:21→21:28)
[2019-07-02] MEDS: CETIRIZINE (ZyrTEC) 10 MG TAB PO SCH (10:21)
[2019-07-02] MEDS: PANTOPRAZOLE 40MG TAB (PROTONIX) PO SCH (10:21)
[2019-07-02] MEDS: MONTELUKAST 10 MG TAB PO SCH (10:22)
[2019-07-02] MEDS: IRON SUCROSE 200 MG in NS 100 ML IV SCH (10:22)
[2019-07-02] MEDS ORDERED: POTASSIUM CHLORIDE 10 MEQ SR TABLET PO ONE (12:00)
--- NOTE | 2019-07-02 12:55 | IPN ---
DATE OF SERVICE: 07/02/2019 SUBJECTIVE: The patient was seen and examined the bedside today morning. She was sitting on the sofa. The patient is more awake and alert. There is no significant change in the renal function. Creatinine is stable at 3.2. She continues to diurese well with the IV diuretics. Her shortness of breath is improving. She denies any fevers or chills at this time. OBJECTIVE: Vital signs: Temperature is 97.5 degrees Fahrenheit, fundi blood pressure 125/62, pulse is 70, respiratory of 18, saturating 97% on nasal cannula at 1 liter. Intake and output - urine output recorded is 1.4 liters yesterday, 600 mL so far today since overnight. Weight in the bed scale was 112 kg yesterday. PHYSICAL EXAMINATION: General: The patient is awake, alert, oriented times three, sitting up on the sofa, no apparent distress. Head and neck exam extraocular muscles intact. Pupils equally round and react to light. Mucous membranes are moist. Neck is supple. Mildly elevated jugular venous distention (JVD). Cardiovascular: S1, S2, regular rate. 2+ edema of the bilateral lower extremities. Respiratory: Decreased breath sounds at the bases with a mild respiratory crackles bilaterally at the bases. Patient has a grade 3/6 systolic ejection murmur radiating to the axilla. Abdomen: Soft, obese, positive bowel sounds. Genitourinary: She has an indwelling Cordon catheter. Musculoskeletal: No clubbing or cyanosis. Pulses are 2+. FIELD NURSE CASE MANAGER: No focal deficit. Power is 5/5 in all extremities. LAB REVIEW: CBC showed WBC 9.2, hemoglobin is 9, platelet platelets of 211. BMP showed sodium 141, potassium 3.8, chloride 109, bicarb 22, BUN 74, creatinine is 3.2, it was 3.2 yesterday as well, calcium 8.3, phosphorus is 6.7. CURRENT INPATIENT MEDICATIONS: The patient's medications were all reviewed by me. She continues to be on Lasix 40 mg IV twice a day. She was also started on IV Venofer daily and she also got a dose of Aranesp 200 mcg yesterday. Warfarin is still on hold because of supratherapeutic INR. ASSESSMENT AND PLAN: 1. Acute kidney injury superimposed on chronic kidney disease stage 4. The patient's creatinine has been staying stable at 3.2. She continues to diurese well with Lasix. Continue the diuretics at this time because volume status is decompensated I have discussed with the patient and explained to that if I do not see any significant improvement in the renal function the patient might need to get a tunneled dialysis catheter and start hemodialysis. 2. Acute decompensated diastolic congestive heart failure. Volume status is improving. Continue current dose of Lasix 40 mg IV twice a day. Continue Coreg 12.5 mg by mouth twice a day. 3. Atrial fibrillation status post pacemaker. Heart rate is controlled with Coreg and digoxin. Warfarin is on is on hold at this time. 4. Anemia secondary to chronic kidney disease and iron deficiency. Continue IV Venofer and she has been started on once a week Aranesp injections. Hemoglobin level is improving. 5. Chronic metabolic acidosis. Continue current dose of sodium bicarbonate 325 mg by mouth twice a day. 6. Chronic kidney disease, mineral bone disease. Phosphorus level is high. I would not start the patient on phosphorus binders. If the patient is started on dialysis next week her phosphorus level will get better. 7. Need for immunization. Patient's hepatitis B surface antibody is negative. She is not immune to hepatitis B. There is a high likelihood that this patient will be started on hemodialysis. I am to going to give her first dose of hepatitis B vaccine today. MTDD
[2019-07-02 14:00] VITALS: BP 139/69
[2019-07-02] MEDS ORDERED: [UNRECOGNIZED DRUG - OTHER] IM ONE (14:00)
--- NOTE | 2019-07-02 15:57 | IPNPDOC ---
Subjective Date Seen The patient was seen on 07/02/19. Subjective Chief Complaint/HPI at baseline dyspnea Constitutional: Denies: Chills ENT: Denies: Head Aches, Ear Pain Skin: Denies: Rash Pulmonary: Denies: Dyspnea Cardiovascular: Denies: Chest Pain, Palpitations Objective Physical Examination General Exam: Positive: Alert, No Acute Distress Chest Exam: Positive: Rales (Bibasilar crackles); Negative: Rhonchi, Wheezing Heart Exam: Positive: Rate Normal, Regular Rhythm Extremity Exam: Positive: Edema (1+ edema BL) Assessment /Plan Problems (1) CHF (congestive heart failure) Permanent Comment: 06/01/19: Echocardiogram shows grade 1 diastolic dysfunction Last Edited By: Bryant Arriaga MD on Jun 04, 2019 23:18 Status: Acute Problem Text: -900 since 06/30 admission favor paracenteisis if no improvement with diuresis CXR on admission: IMPRESSION: CHF pattern with marked cardiomegaly and small right and left pleural effusions. Left pleural effusion appears larger. Pacemaker. (2) Acute on chronic kidney failure Status: Acute Problem Text: baseline cr ~3.0 Nephro considering HD via tunneled cath if inadequate UOP Cordon placed for Urinary Retention, (3) Atrial fibrillation Status: Chronic Response to Treatment: Stable Problem Text: RC HD dig/carve Coumadin held for high INR 07/02 3.9 07/01 INR 4.2 (4) Diabetes mellitus with stage 4 chronic kidney disease GFR 15-29 Status: Chronic Problem Text: HD glar 65 QHS c U-500 SS AC TID BG 60-70s off insulin since 06/30 admission (5) Anemia Status: Chronic Response to Treatment: Stable Problem Text: hgb stable at 9s on IV Fe/EPO (6) Morbid obesity Status: Chronic (7) DEEDEE (obstructive sleep apnea) Status: Chronic Problem Text: Does not wear CPAp because " I don't need it when I am sleeping up in my recliner or in hospital bed" She has not used CPAP in a long time (8) ELENA (nonalcoholic steatohepatitis) Status: Chronic Problem Text: Probable cirrhosis Plan/VTE VTE Prophylaxis Ordered?: Yes (On chronic coumadin) Plan Therapy: PT VS, I&O, 24H, Fishbone Vital Signs/I&O Vital Signs Date Time Temp Pulse Resp B/P (MAP) Pulse Ox O2 Delivery O2 Flow Rate FiO2 07/02/19 14:00 98.0 70 20 139/69 (92) 97 Nasal Cannula 2.0 I&O- Last 24 Hours up to 6 AM 07/02/19 06:00 Intake Total 480 ml Output Total 1400 ml Balance -920 ml Laboratory Data 24H LABS Laboratory Tests 2 07/01/19 17:11: Bedside Glucose (Misc Panel) 107 07/01/19 21:44: Bedside Glucose (Misc Panel) 115 07/02/19 06:49: Nucleated Red Blood Cells % (auto) 0.0, Prothrombin Time 37.3H, Prothromb Time International Ratio 3.77, Anion Gap 10, Glomerular Filtration Rate 15.1L, Calcium Level 8.3L, Phosphorus Level 6.7H, Albumin 2.2L 07/02/19 11:17: Bedside Glucose (Misc Panel) 175H CBC/BMP Laboratory Tests 07/02/19 06:49 Will Steiner M.D. Jul 02, 2019 15:57
[2019-07-02] MEDS ORDERED: WARFARIN SOD 5 MG TAB PO SCH (17:00)
[2019-07-02] MEDS: LATANOPROST 0.005% OPHTH SOLN 2.5 ML OU SCH (21:28)
[2019-07-02] MEDS: GABAPENTIN 300 MG CAP PO SCH (21:28)
[2019-07-02 22:00] VITALS: BP 134/62
[2019-07-03 06:00] VITALS: BP 143/63; O2SAT 97
[2019-07-03 06:18] LABS: HEMATOCRIT 28.4 % (36.0-47.0); HEMOGLOBIN 8.8 g/dl (12.0-15.5); MEAN CORPUSCULAR HEMOGLOBIN 29.8 pg (27.0-33.0); MEAN CORPUSCULAR VOLUME 96.3 fl (80.0-96.0); PLATELET COUNT, AUTOMATED 206 10^3/uL (150-450); RED BLOOD COUNT 2.95 10^6/uL (4.00-5.40); WHITE BLOOD COUNT 9.4 10^3/uL (4.0-10.0)
[2019-07-03 06:30] LABS: INR 2.72; PROTHROMBIN TIME 28.7 SECONDS (11.8-14.0)
[2019-07-03 06:49] LABS: CALCIUM LEVEL 8.1 MG/DL (8.8-10.2); CREATININE FOR GFR 3.31 MG/DL (0.55-1.30); GLOMERULAR FILTRATION RATE 14.7 (>45); POTASSIUM SERUM 3.7 MEQ/L (3.5-5.1)
[2019-07-03] MEDS: HumaLOG INSULIN (NovoLOG) PER UNIT SC SCH ×4 (08:10→21:00)
[2019-07-03] MEDS: MAGNESIUM OXIDE 400 MG TAB (MAG-OX) PO SCH (08:10)
[2019-07-03] MEDS: CETIRIZINE (ZyrTEC) 10 MG TAB PO SCH (08:10)
[2019-07-03] MEDS: CARVedilol 12.5 MG TAB PO SCH ×2 (08:11→21:32)
[2019-07-03] MEDS: PANTOPRAZOLE 40MG TAB (PROTONIX) PO SCH (08:11)
[2019-07-03] MEDS: SODIUM BICARBONATE 325 MG TAB PO SCH ×2 (08:11→21:31)
[2019-07-03] MEDS: MONTELUKAST 10 MG TAB PO SCH (08:11)
[2019-07-03] MEDS: IRON SUCROSE 200 MG in NS 100 ML IV SCH (08:12)
[2019-07-03 09:00] VITALS: O2SAT 97
[2019-07-03] MEDS: ACETAMINOPH W/CODEINE #3 TAB UD PO PRN ×2 (10:00→16:57)
[2019-07-03] MEDS: FUROSEMIDE 40 MG/4 ML VIAL (J1940) IV SCH (10:27)
[2019-07-03 14:00] VITALS: BP 154/76
--- NOTE | 2019-07-03 15:07 | IPN ---
DATE: 07/03/2019 SUBJECTIVE: Patient is seen and examined this morning at the bedside, sitting out of bed to the chair. She complains of localized pain at the site of wounds that are in the folds of her abdominal pannus. She reports she has been ambulating to the bathroom, but not much more than that. She continues on intravenous (IV) Venofer infusions. Dr. Reynoso did discuss the possibility of dialysis yesterday with the patient and today she indicates that she is agreeable to proceed with the same. Her creatinine is stable at 3.3 and she continues to diuresis with IV Lasix. She denies shortness of breath at rest or with simple exertion. Her main complaint today is pain on her abdominal folds where she has some wounds. OBJECTIVE: VITAL SIGNS: Temperature 98.1, pulse 70, respiratory rate 16, blood pressure 143/63, saturating 97% on 1 liter nasal cannula. Intake yesterday was 940. Urine output yesterday was 1500 to the Cordon catheter. Net negative 560. Weight in the bed scale today is 112 kg. GENERAL: Patient is seen sitting out of bed to the chair, elderly female, obese and squat, in no distress, oriented times three, conversational. Extraocular muscles are intact. Mucous membranes are moist. The neck is supple. The jugular veins are difficult to assess due to increased neck adipose tissue, but do not appear to be elevated while she is sitting upright. CARDIAC: S1, S2. Regular rate. 1+ edema present in the bilateral lower extremities. RESPIRATORY: Diminished breath sounds at the bases with very faint crackle. Systolic ejection murmur present. ABDOMEN: Soft and obese with significant abdominal pannus. She has some Opti-Flex foam at the site of the wounds and her wounds were not examined. GENITOURINARY: She has a indwelling Cordon catheter with yellow urine. MUSCULOSKELETAL: No clubbing or cyanosis. NEUROLOGIC: No focal deficit oriented times three. PSYCHIATRIC: Appropriate mood and effect. LABORATORY DATA: Sodium 140, potassium 3.7, bicarbonate 24, BUN 84, creatinine 3.3, phosphorus 6.7. Hemoglobin 8.8, platelets 206. INPATIENT MEDICATIONS: Patient continues on: - Venofer infusion 200 mg for five doses. - She continues on once weekly Aranesp - Lasix 40 mg IV twice a day - Her Coumadin is on hold. The remainder medications are unchanged from prior. PROBLEMS: 1. 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 Given the patient's diastolic congestive heart failure and proteinuric CKD stage IV, she is likely to have ongoing issues with her volume status. Dr. Reynoso did discuss with her regarding the probable need for hemodialysis initiation and the patient is agreeable to start. We will have vein mapping completed and will reach out to vascular surgery for a tunneled dialysis catheter placement and will plan to initiate hemodialysis during this admission 2. Acute decompensated diastolic congestive heart failure. I am increasing the Lasix to 60 mg twice a day and fluid restriction. Her last echocardiogram did show a moderate pericardial effusion and I am ordering a repeat echocardiogram to monitor the same. 3. Atrial fibrillation status post pacemaker. Rate controlled with Carvedilol and digoxin. INR of 2.7 today. Coumadin managed as per primary team. 4. Urinary retention. Continue with Cordon catheter for now, but would remove catheter prior to discharge and attempt voiding trials 5. Anemia of chronic kidney disease with iron deficiency. Patient is receiving Venofer infusion and once weekly Aranesp.
--- NOTE | 2019-07-03 16:03 | IPNPDOC ---
Subjective Date Seen The patient was seen on 07/03/19. Subjective Chief Complaint/HPI dyspnea at baseline Constitutional: Denies: Chills, Fever Eyes: Denies: Pain ENT: Denies: Head Aches Skin: Denies: Rash, Lesions Pulmonary: Denies: Dyspnea, Cough Cardiovascular: Denies: Chest Pain, Palpitations Objective Physical Examination General Exam: Positive: Alert, No Acute Distress Chest Exam: Positive: Rales (Bibasilar crackles); Negative: Rhonchi, Wheezing Heart Exam: Positive: Rate Normal, Regular Rhythm Extremity Exam: Positive: Edema (1+ edema BL) Assessment /Plan Problems (1) Wound, open, hip or thigh Status: Chronic Problem Text: B lateral hip grade 2 wounds-follows as outpx c Stillerman 07/03 restarted Vashe WC c foam dressing QD (2) Urinary retention Status: Chronic Problem Text: patient would like try TOV given chronic irritation, BUT given limited ambulation 2 B hip pain/wound will leave in for now 06/2019 removed by [facility] Uro given passed TOV 06/12/19 Nephro placed murry to monitor UOP (patient was retaining ~100 cc urine)-was on tamsul 0.4 (3) CHF (congestive heart failure) Permanent Comment: 06/01/19: Echocardiogram shows grade 1 diastolic dysfunction Last Edited By: Bryant Arriaga MD on Jun 04, 2019 23:18 Status: Acute Problem Text: -1500 since 06/30 admission HD bum 1 favor paracenteisis if no improvement with diuresis 07/04 repeat CXR to reevaluate 06/30 CXR: CHF pattern with marked cardiomegaly and small right and left pleural effusions. Left pleural effusion appears larger. Pacemaker. (4) Acute on chronic kidney failure Status: Acute Problem Text: baseline cr ~3.0 Nephro considering HD via tunneled cath if inadequate UOP Murry placed for Urinary Retention, (5) Atrial fibrillation Status: Chronic Response to Treatment: Stable Problem Text: RC HD dig/carve AC VKA (HD 5 MF, 2.5 ROW) 07/03 2.7; therefore, restarted at 2.5 07/02 3.9 07/01 INR 4.2 (6) Diabetes mellitus with stage 4 chronic kidney disease GFR 15-29 Status: Chronic Problem Text: HD glar 65 QHS c U-500 SS AC TID BG 60-70s off insulin since 06/30 admission (7) Anemia Status: Chronic Response to Treatment: Stable Problem Text: hgb stable at 9s on IV Fe/EPO (8) Morbid obesity Status: Chronic (9) DEEDEE (obstructive sleep apnea) Status: Chronic Problem Text: Does not wear CPAp because " I don't need it when I am sleeping up in my recliner or in hospital bed" She has not used CPAP in a long time (10) ELENA (nonalcoholic steatohepatitis) Status: Chronic Problem Text: Probable cirrhosis Plan/VTE VTE Prophylaxis Ordered?: Yes (On chronic coumadin) Plan Therapy: PT VS, I&O, 24H, Fishbone Vital Signs/I&O Vital Signs Date Time Temp Pulse Resp B/P (MAP) Pulse Ox O2 Delivery O2 Flow Rate FiO2 07/03/19 10:51 18 95 Room Air 07/03/19 09:00 1.0 07/03/19 08:11 72 140/61 07/03/19 06:00 98.1 I&O- Last 24 Hours up to 6 AM 07/03/19 06:00 Intake Total 1000 ml Output Total 1500 ml Balance -500 ml Laboratory Data 24H LABS Laboratory Tests 2 07/02/19 17:23: Bedside Glucose (Misc Panel) 113 07/02/19 21:07: Bedside Glucose (Misc Panel) 121H 07/03/19 06:08: Nucleated Red Blood Cells % (auto) 0.0, Prothrombin Time 28.7H, Prothromb Time International Ratio 2.72, Anion Gap 8, Glomerular Filtration Rate 14.7L, Calcium Level 8.1L 07/03/19 06:21: Bedside Glucose (Misc Panel) 127H 07/03/19 11:33: Bedside Glucose (Misc Panel) 167H CBC/BMP Laboratory Tests 07/03/19 06:08 Will Steiner M.D. Jul 03, 2019 16:03
[2019-07-03] MEDS: FUROSEMIDE 100 MG/10 ML VIAL (J1940) IV SCH (16:56)
[2019-07-03 17:30] LABS: INR 2.3; PROTHROMBIN TIME 25.1 SECONDS (11.8-14.0)
[2019-07-03] MEDS: WARFARIN SOD 2.5 MG TAB PO SCH (18:02)
[2019-07-03] MEDS: GABAPENTIN 300 MG CAP PO SCH (21:31)
[2019-07-03] MEDS: LATANOPROST 0.005% OPHTH SOLN 2.5 ML OU SCH (21:31)
[2019-07-03 22:00] VITALS: BP 123/59
[2019-07-04] MEDS: ACETAMINOPH W/CODEINE #3 TAB UD PO PRN ×4 (00:10→23:50)
[2019-07-04 03:26] VITALS: O2SAT 97
[2019-07-04 05:44] LABS: HEMATOCRIT 27.4 % (36.0-47.0); HEMOGLOBIN 8.4 g/dl (12.0-15.5); MEAN CORPUSCULAR HEMOGLOBIN 29.4 pg (27.0-33.0); MEAN CORPUSCULAR HGB CONC 30.7 g/dl (32.0-36.5); MEAN CORPUSCULAR VOLUME 95.8 fl (80.0-96.0); PLATELET COUNT, AUTOMATED 215 10^3/uL (150-450); RED BLOOD COUNT 2.86 10^6/uL (4.00-5.40); WHITE BLOOD COUNT 9.2 10^3/uL (4.0-10.0)
[2019-07-04 06:00] VITALS: BP 125/59
[2019-07-04 06:00] LABS: INR 2.51; PROTHROMBIN TIME 26.9 SECONDS (11.8-14.0)
[2019-07-04 06:06] LABS: CALCIUM LEVEL 8.1 MG/DL (8.8-10.2); CREATININE FOR GFR 3.02 MG/DL (0.55-1.30); GLOMERULAR FILTRATION RATE 16.4 (>45); MAGNESIUM LEVEL 2.1 MG/DL (1.8-2.4); POTASSIUM SERUM 3.6 MEQ/L (3.5-5.1)
[2019-07-04] MEDS: HumaLOG INSULIN (NovoLOG) PER UNIT SC SCH ×4 (07:30→21:00)
[2019-07-04] MEDS ORDERED: POTASSIUM CHLORIDE 10% LIQ 20 MEQ/15 ML UDC PO SCH (09:00)
[2019-07-04] MEDS: FUROSEMIDE 100 MG/10 ML VIAL (J1940) IV SCH ×3 (09:14→23:49)
[2019-07-04] MEDS: MONTELUKAST 10 MG TAB PO SCH (09:14)
[2019-07-04] MEDS: PANTOPRAZOLE 40MG TAB (PROTONIX) PO SCH (09:15)
[2019-07-04] MEDS: SODIUM BICARBONATE 325 MG TAB PO SCH ×2 (09:15→21:53)
[2019-07-04] MEDS: CARVedilol 12.5 MG TAB PO SCH ×2 (09:15→21:54)
[2019-07-04] MEDS: CETIRIZINE (ZyrTEC) 10 MG TAB PO SCH (09:15)
[2019-07-04] MEDS: DIGOXIN 0.125 MG TAB PO SCH (09:15)
[2019-07-04] MEDS: IRON SUCROSE 200 MG in NS 100 ML IV SCH (09:15)
--- NOTE | 2019-07-04 09:56 | IPNPDOC ---
Subjective Date Seen The patient was seen on 07/04/19. Subjective Chief Complaint/HPI not dyspneic. doesn't like Murry Constitutional: Denies: Chills ENT: Denies: Head Aches Pulmonary: Reports: Dyspnea (with exertion); Denies: Cough Cardiovascular: Denies: Chest Pain, Orthopnea Gastrointestinal: Denies: Nausea, Abdominal Pain Hematologic: Denies: Bruising, Petecchia Endocrine: Denies: Polydipsia Neurological: Reports: Weakness (global) Psych: Reports: Mood Normal Objective Physical Examination General Exam: Positive: Alert, No Acute Distress Eye Exam: Positive: PERRLA; Negative: Sclera icteric Neck Exam: Negative: thyromegaly Chest Exam: Positive: Rales (Bibasilar crackles, faint); Negative: Rhonchi, Wheezing Heart Exam: Positive: Rate Normal, Regular Rhythm Abdomen Exam: Positive: Normal bowel sounds, Soft; Negative: Tenderness Extremity Exam: Positive: Edema (1+ edema BL) Skin Exam: Positive: Other skin issue (she has chronic pressure sores bilateral hips) Psych Exam: Positive: Mental status NL Assessment /Plan Problems (1) Urinary retention Status: Chronic Problem Text: 07/04 would like to try to d/c murry and monitor. however, will d/c only if OK with nephrology. patient would like try TOV given chronic irritation, BUT given limited ambulation 2 B hip pain/wound will leave in for now 06/2019 removed by [facility] Uro given passed TOV 06/12/19 Nephro placed murry to monitor UOP (patient was retaining ~100 cc urine)-was on tamsul 0.4 (2) Wound, open, hip or thigh Status: Chronic Problem Text: B lateral hip grade 2 wounds-follows as outpx c Stillerman 07/03 restarted Vashe WC c foam dressing QD (3) CHF (congestive heart failure) Permanent Comment: 06/01/19: Echocardiogram shows grade 1 diastolic dysfunction Last Edited By: Bryant Arriaga MD on Jun 04, 2019 23:18 Status: Acute Problem Text: -1500 since 06/30 admission HD bum 1 favor paracenteisis if no improvement with diuresis 07/04 repeat CXR to reevaluate 06/30 CXR: CHF pattern with marked cardiomegaly and small right and left pleural effusions. Left pleural effusion appears larger. Pacemaker. (4) Acute on chronic kidney failure Status: Acute Response to Treatment: Improving Problem Text: baseline cr ~3.0 Nephro considering HD via tunneled cath if inadequate UOP Murry placed for Urinary Retention, (5) Atrial fibrillation Status: Chronic Response to Treatment: Stable Problem Text: RC HD dig/carve AC VKA (HD 5 MF, 2.5 ROW) 07/03 2.7; therefore, restarted at 2.5 07/02 3.9 07/01 INR 4.2 (6) Diabetes mellitus with stage 4 chronic kidney disease GFR 15-29 Status: Chronic Problem Text: HD glar 65 QHS c U-500 SS AC TID BG 60-70s off insulin since 06/30 admission (7) Anemia Status: Chronic Response to Treatment: Stable Problem Text: 07/04: Venofer has been ordered. hgb stable at 9s on IV Fe/EPO (8) Morbid obesity Status: Chronic (9) DEEDEE (obstructive sleep apnea) Status: Chronic Problem Text: Does not wear CPAp because " I don't need it when I am sleeping up in my recliner or in hospital bed" She has not used CPAP in a long time (10) ELENA (nonalcoholic steatohepatitis) Status: Chronic Problem Text: Probable cirrhosis Plan/VTE VTE Prophylaxis Ordered?: Yes (On chronic coumadin) Plan Therapy: PT VS, I&O, 24H, Fishbone Vital Signs/I&O Vital Signs Date Time Temp Pulse Resp B/P (MAP) Pulse Ox O2 Delivery O2 Flow Rate FiO2 07/04/19 09:15 70 07/04/19 09:15 125/59 07/04/19 06:00 97.7 16 98 Nasal Cannula 2.0 I&O- Last 24 Hours up to 6 AM 07/04/19 06:00 Intake Total 1130 ml Output Total 1500 ml Balance -370 ml Laboratory Data 24H LABS Laboratory Tests 2 07/03/19 11:33: Bedside Glucose (Misc Panel) 167H 07/03/19 16:31: Prothrombin Time 25.1H, Prothromb Time International Ratio 2.30 07/03/19 16:44: Bedside Glucose (Misc Panel) 117H 07/03/19 20:52: Bedside Glucose (Misc Panel) 127H 07/04/19 05:24: Nucleated Red Blood Cells % (auto) 0.0, Prothrombin Time 26.9H, Prothromb Time International Ratio 2.51, Anion Gap 8, Glomerular Filtration Rate 16.4L, Calcium Level 8.1L, Magnesium Level 2.1 CBC/BMP Laboratory Tests 07/04/19 05:24 Jon Hahn MD Jul 04, 2019 09:56
--- NOTE | 2019-07-04 10:11 | REP ---
CHEST, TWO VIEWS: Two views of the chest are performed and compared to a prior study of 06/30/2019. There is cardiomegaly. Small right effusion with adjacent atelectasis/infiltrate is essentially unchanged. There is left pleural effusion with adjacent atelectasis/infiltrate, larger on the right. This may be slightly increased in size compared to the prior study. There is calcification of the thoracic aorta. Left pacemaker is again noted. IMPRESSION: No significant change in small right pleural effusion with adjacent atelectasis/infiltrate. Larger left effusion with adjacent atelectasis/infiltrate may be mildly increased since the prior study. Cardiomegaly. Electronically Signed by Jose Allred MD 07/05/2019 05:28 P
[2019-07-04 14:00] VITALS: BP 134/62
--- NOTE | 2019-07-04 14:12 | IPN ---
DATE OF SERVICE: 07/04/2019 SUBJECTIVE: The patient is seen and examined this morning at the bedside sitting out of bed to the chair. Renal function has marginally improved over the past 24 hours. The patient has not really vigorously diuresed. Her weights have not significantly changed. She continues on supplemental oxygen. Chest x-ray today showed no significant change in the pleural effusions. OBJECTIVE: Vital Signs: Temperature 97.7, pulse 70, respiratory rate 16, blood pressure 125/59, saturating 98% on 2 liters nasal cannula. Intake yesterday was 1 liter, urine output yesterday was 1500, net negative 500. Weight in the bed scale today is 113.2 kg. General: The patient is seen sitting out of bed to the chair. Elderly female, morbidly obese, in no acute respiratory distress. Extraocular muscles are intact. Tongue is moist. Neck is supple. The jugular veins are difficult to assess secondary to body habitus, but do not appear elevated while she is sitting upright. Cardiac: S1 and S2, regular rate and rhythm, 1+ edema in the lower extremities. Lungs show diminished breath sounds at the bilateral bases. No tachypnea or accessory muscle use. The abdomen is soft and obese. There is significant abdominal pannus. There are some dressings on the wounds that are in her folds of adipose tissue. Genitourinary: Shows Cordon catheter with yellow urine. The extremities are negative for clubbing and show 1+ edema. Psychiatric: Appropriate mood and effect. Neurologic: Oriented times three. No focal deficit. LABORATORY DATA: White count 9.2, hemoglobin 8.4, sodium 143, potassium 3.6, bicarbonate 25, BUN 83, creatinine 3.0, magnesium 2.1, BNP 4700. Chest x-ray with bilateral pleural effusions unchanged from prior. INPATIENT MEDICATIONS: Reviewed by myself. I increased her Lasix to 60 mg every 8 hours. I started her on spironolactone 25 mg by mouth daily. Remainder of medications are unchanged from prior. PROBLEMS: 1. 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 The patient had marginal improvement in her renal function in the past 24 hours. She is not really vigorously diuresing. She remains volume overloaded. Her BNP has risen. I have increased her Lasix to 60 mg IV every 8 hours and I have also started her on spironolactone 25 mg by mouth daily. If her renal function tolerates further diuresis and correction in volume status, we may be able to hold off on hemodialysis initiation. 2. Acute decompensated diastolic congestive heart failure. She has pleural effusion and she has pericardial effusion. She has peripheral edema. Her daily weights have not really changed. She has not diuresed much thus far. I have increased the Lasix to 60 mg every 8 hours. I have added spironolactone 25 mg daily. There is a repeat echocardiogram done to monitor her pericardial effusion. If she does not satisfactorily diurese, we may need to initiate hemodialysis, however, at present will see how she does with increased diuretics. 3. Urinary retention. Okay to stop Cordon catheter for now and attempt a voiding trial and we will do a postvoid residual bladder scan tomorrow. 4. Anemia of chronic kidney disease with iron deficiency. The patient is receiving Venofer infusion and once weekly Aranesp. Her hemoglobin is suboptimal, but stable. 5. Atrial fibrillation. The patient remains rate controlled with digoxin and beta donna and she is anticoagulated with Coumadin with a therapeutic INR. 6. Disposition. Patient with peripheral edema, pleural effusions, pericardial effusion, and rising BNP. Diuretics are being escalated. Will continue to monitor renal function and if the patient does not adequately diuresis may need to consider hemodialysis initiation.
[2019-07-04] MEDS: WARFARIN SOD 2.5 MG TAB PO SCH (16:39)
--- NOTE | 2019-07-04 20:40 | ECHO ---
DATE OF PROCEDURE: 07/04/2019 DATE OF : 1950 AGE: 69 GENDER: Female HEIGHT: 61 inches WEIGHT: 246 pounds BODY SURFACE AREA: 2.07 meters squared INPATIENT: Doe castillo REFERRING PHYSICIAN: Dr. Mariela Kinney INDICATION: Pericardial effusion. MEASUREMENTS: 2D Measurements: RV: 3.4 cm LV: 4.3 cm Septum: 1.3 cm Posterior wall: 1.3 cm Aortic root: 3.0 cm LA: 4.6 cm LVEF: 70% DOPPLER MEASUREMENTS: AV: 3.67 meters per second LVOT: 1.2 meters per second Mean AV gradient: 29 mmHg Dimensionless index: 0.38 MV-E: 101, A: 119, EA ratio: 0.8 Early mitral deceleration time: 296 milliseconds E prime: 5.4, A prime: 9.7, E/E prime ratio: 18.7 Pulmonary capillary wedge pressure: 22.8 mmHg PV: 1.0 meters per second Pulmonary artery acceleration time: 109 milliseconds RVSP: 40 mmHg IVC: 1.9 cm COMMENTS: Consistent, AV sequentially paced rhythm with paced QRS complexes having and left bundle branch block configuration. M-mode and two-dimensional echocardiography was performed with pulsed, continuous wave, color flow and tissue Doppler study. Technically challenging study in light of the patient's body habitus but diagnostically useful information was still obtained. Mild concentric left ventricular hypertrophy with hyperkinetic wall motion. Mild to moderately dilated left atrium with impairment of LV diastolic function grade 1 and elevated estimated mean left atrial pressure. Normal right heart chamber sizes and motion with Doppler evidence of moderate pulmonary hypertension. Normal inferior vena cava (IVC) size was slightly reduced respiratory collapse suggestive of central venous pressure upper limits of normal to mildly increased. Moderate calcific aortic stenosis with very mild insufficiency. Normal aortic dimensions. Mild to moderate degenerative changes of the mitral valvular apparatus without inflow tract obstruction and only very mild insufficiency. Normal appearing tricuspid valve with mild insufficiency. Pacing leads could be visualized traversing right heart chambers but no apparent separate intracardiac mass. Mild to moderate pericardial effusion measuring 1.6 centimeters inferolaterally and 0.5 cm anteriorly but no cardiac chamber compression. There was no significant respiratory variation to pulse signals to suggest cardiac tamponade. However, clinical correlation would be recommended.
[2019-07-04] MEDS: GABAPENTIN 300 MG CAP PO SCH (21:53)
[2019-07-04] MEDS: LATANOPROST 0.005% OPHTH SOLN 2.5 ML OU SCH (21:53)
[2019-07-04 22:00] VITALS: BP 132/70
[2019-07-05 01:43] VITALS: O2SAT 97
--- NOTE | 2019-07-05 03:41 | REPVR ---
PROCEDURE INFORMATION: Exam: US Vessel Map for Hemodialysis Exam date and time: 07/04/2019 5:01 PM Clinical history: 69 years old, female; Screening exam; Additional info: Need for avf placement TECHNIQUE: Imaging protocol: US vessel mapping for hemodialysis access, including arterial inflow and venous outflow with image documentation. COMPARISON: No relevant prior studies available. FINDINGS: Right side: Basilic vein: Upper humerus : 7.1 mm Lower humerus: 2.7 mm Upper forearm : 1.2 mm Lower forearm/wrist: Not visualized. Median cubital: Not visualized. Cephalic vein: Upper humerus: 4.6 mm Lower humerus: 4.9 mm Upper forearm: 4.2 mm Lower forearm/wrist: 2.8 mm Median cubital: 1.8 mm. Axillary artery: Peak systolic velocity is 101 cm/s with a biphasic waveform. Size is 3.4 mm. Brachial artery: Peak systolic velocity is 110 cm/s with a biphasic waveform. Size is 2.6 mm. Radial artery: Peak systolic velocity is 84.7 cm/s with a biphasic waveform. Size is 2.0 mm. Ulnar artery: Peak systolic velocity is 69.8 cm/s with a biphasic waveform. Size is 1.6 mm. Left side: Basilic vein: Upper humerus: 9 mm Lower humerus: 4 mm Upper forearm: 1.5 mm Lower forearm/wrist: Not visualized. Median cubital: Not visualized. Cephalic vein: Upper humerus: 4.6 mm Lower humerus: 3.9 mm Upper forearm: 2.8 mm Lower forearm/wrist: 1.1 mm Median cubital: Not visualized due to IV line. Axillary artery: Peak systolic velocity is 114 cm/s with a biphasic waveform. Size is 4.0 mm. Brachial artery: Peak systolic velocity is 128 cm/s with a biphasic waveform. Size is 3.5 mm. Radial artery: Peak systolic velocity is 73.4 cm/s with a biphasic waveform. Size is 1.6 mm. Ulnar artery: Peak systolic velocity is 70.0 cm/s with a biphasic waveform. Size is 1. 2.4 mm. IMPRESSION: No hemodynamically significant stenosis, or occlusion. Please see details above. Electronically signed by: Charlotte Shah On 07/05/2019 03:40:26 AM
[2019-07-05 05:46] LABS: HEMATOCRIT 28.1 % (36.0-47.0); HEMOGLOBIN 8.5 g/dl (12.0-15.5); MEAN CORPUSCULAR HEMOGLOBIN 29.1 pg (27.0-33.0); MEAN CORPUSCULAR HGB CONC 30.2 g/dl (32.0-36.5); MEAN CORPUSCULAR VOLUME 96.2 fl (80.0-96.0); PLATELET COUNT, AUTOMATED 230 10^3/uL (150-450); RED BLOOD COUNT 2.92 10^6/uL (4.00-5.40); WHITE BLOOD COUNT 10.2 10^3/uL (4.0-10.0)
[2019-07-05 06:00] VITALS: BP 130/69
[2019-07-05 06:00] LABS: INR 2.38; PROTHROMBIN TIME 25.8 SECONDS (11.8-14.0)
[2019-07-05 06:09] LABS: CALCIUM LEVEL 8.5 MG/DL (8.8-10.2); CREATININE FOR GFR 2.88 MG/DL (0.55-1.30); GLOMERULAR FILTRATION RATE 17.3 (>45); POTASSIUM SERUM 3.7 MEQ/L (3.5-5.1)
[2019-07-05] MEDS: FUROSEMIDE 100 MG/10 ML VIAL (J1940) IV SCH ×3 (08:40→23:16)
[2019-07-05] MEDS: HumaLOG INSULIN (NovoLOG) PER UNIT SC SCH ×4 (08:41→21:00)
[2019-07-05] MEDS: SODIUM BICARBONATE 325 MG TAB PO SCH (08:41)
[2019-07-05] MEDS: MONTELUKAST 10 MG TAB PO SCH (08:41)
[2019-07-05] MEDS: SPIRONOLACTONE 25 MG TAB PO SCH (08:41)
[2019-07-05] MEDS: CETIRIZINE (ZyrTEC) 10 MG TAB PO SCH (08:41)
[2019-07-05] MEDS: CARVedilol 12.5 MG TAB PO SCH ×2 (08:42→21:24)
[2019-07-05] MEDS: ACETAMINOPH W/CODEINE #3 TAB UD PO PRN ×3 (08:42→21:23)
[2019-07-05] MEDS: MAGNESIUM OXIDE 400 MG TAB (MAG-OX) PO SCH (08:42)
[2019-07-05] MEDS: IRON SUCROSE 200 MG in NS 100 ML IV SCH (08:43)
[2019-07-05] MEDS: PANTOPRAZOLE 40MG TAB (PROTONIX) PO SCH (08:43)
--- NOTE | 2019-07-05 10:39 | IPNPDOC ---
Subjective Date Seen The patient was seen on 07/05/19. Subjective Chief Complaint/HPI Denies SOB. Murry removed yesterday - urinating well per patient and nursing Constitutional: Denies: Chills, Fever Pulmonary: Denies: Dyspnea, Cough Cardiovascular: Denies: Chest Pain, Palpitations Gastrointestinal: Reports: Constipation; Denies: Nausea, Vomiting, Abdominal Pain, Diarrhea Objective Physical Examination General Exam: Positive: Alert, No Acute Distress Eye Exam: Positive: PERRLA; Negative: Sclera icteric Neck Exam: Negative: thyromegaly Chest Exam: Positive: Rales (Bibasilar crackles, faint); Negative: Rhonchi, Wheezing Heart Exam: Positive: Rate Normal, Regular Rhythm Abdomen Exam: Positive: Normal bowel sounds, Soft; Negative: Tenderness Extremity Exam: Positive: Edema (trace BL ankle edema) Skin Exam: Positive: Other skin issue (she has chronic pressure sores bilateral hips) Psych Exam: Positive: Mental status NL Assessment /Plan Problems (1) CHF (congestive heart failure) Permanent Comment: 06/01/19: Echocardiogram shows grade 1 diastolic dysfunction Last Edited By: Bryant Arriaga MD on Jun 04, 2019 23:18 Status: Acute Problem Text: 07/05 - Has diureses some since admission, but remains fluid overloaded despite diuretics adjusted by Nephrology F/U CXR 07/04: No significant change in small right pleural effusion with adjacent atelectasis/infiltrate. Larger left effusion with adjacent atelectasis/infiltrate may be mildly increased since the prior study. Cardiomegaly. Will likely need thorocentesis 07/04 repeat CXR to reevaluate 06/30 CXR: CHF pattern with marked cardiomegaly and small right and left pleural effusions. Left pleural effusion appears larger. Pacemaker. (2) Urinary retention Status: Chronic Problem Text: 07/05 - Murry removed - Monitor post void residual 07/04 would like to try to d/c murry and monitor. however, will d/c only if OK with nephrology. patient would like try TOV given chronic irritation, BUT given limited ambula tion 2 B hip pain/wound will leave in for now 06/2019 removed by [facility] Uro given passed TOV 06/12/19 Nephro placed murry to monitor UOP (patient was retaining ~100 cc urine)-was on tamsul 0.4 (3) Wound, open, hip or thigh Status: Chronic Problem Text: B lateral hip grade 2 wounds-follows as outpx c [place] 07/03 restarted Vashe WC c foam dressing QD (4) Acute on chronic kidney failure Status: Acute Response to Treatment: Improving Problem Text: 07/05 - renal function imrpved but not at baseline - May need hemodialysis Nephrology following baseline cr ~3.0 Nephro considering HD via tunneled cath if inadequate UOP (5) Atrial fibrillation Status: Chronic Response to Treatment: Stable Problem Text: 07/05 - rate controlled on Dig and carve. Coumadin therapeutic 07/03 2.7; therefore, restarted at 2.5 07/02 3.9 07/01 INR 4.2 (6) Diabetes mellitus with stage 4 chronic kidney disease GFR 15-29 Status: Chronic Problem Text: HD glar 65 QHS c U-500 SS AC TID BG 60-70s off insulin since 06/30 admission (7) Anemia Status: Chronic Response to Treatment: Stable Problem Text: 07/04: Venofer has been ordered. hgb stable at 9s on IV Fe/EPO (8) Morbid obesity Status: Chronic (9) DEEDEE (obstructive sleep apnea) Status: Chronic Problem Text: Does not wear CPAp because " I don't need it when I am sleeping up in my recliner or in hospital bed" She has not used CPAP in a long time (10) ELENA (nonalcoholic steatohepatitis) Status: Chronic Problem Text: Probable cirrhosis Plan/VTE VTE Prophylaxis Ordered?: Yes (On chronic coumadin) Plan Therapy: PT Disposition Home with services once stable - cont PT VS, I&O, 24H, Fishbone Vital Signs/I&O Vital Signs Date Time Temp Pulse Resp B/P (MAP) Pulse Ox O2 Delivery O2 Flow Rate FiO2 07/05/19 09:12 18 96 Room Air 07/05/19 08:42 70 128/61 07/05/19 06:00 98.1 07/05/19 01:43 1.0 I&O- Last 24 Hours up to 6 AM 07/05/19 06:00 Intake Total 1110 ml Output Total 1600 ml Balance -490 ml Laboratory Data 24H LABS Laboratory Tests 2 07/04/19 11:52: Bedside Glucose (Misc Panel) 144H 07/04/19 18:54: Bedside Glucose (Misc Panel) 91 07/04/19 20:19: Bedside Glucose (Misc Panel) 148H 07/05/19 05:06: Nucleated Red Blood Cells % (auto) 0.3H, Prothrombin Time 25.8H, Prothromb Time International Ratio 2.38, Anion Gap 11, Glomerular Filtration Rate 17.3L, Calcium Level 8.5L CBC/BMP Laboratory Tests 07/05/19 05:06 YUMIKO QUESADA PA-C Jul 05, 2019 10:39
[2019-07-05 13:18] VITALS: O2SAT 95
--- NOTE | 2019-07-05 13:22 | IPN ---
DATE: 07/05/2019 SUBJECTIVE: The patient is seen and examined this morning at the bedside. Her Corodn catheter was removed. She reports she is voiding without issue. She has been weaned off of supplemental oxygen. Her renal function continues to improve and is almost back to her usual baseline. The patient is working with physical therapy and has walked 40 feet. Net negative 950 mL in the prior 24 hours daily. Daily weight was not recorded today. Temperature 98.1, pulse 70, respiratory rate 18, blood pressure 130/69, saturating 96% on room air. General: The patient is seen sitting out of bed to the chair. Elderly female short and obese in no acute respiratory distress. Extraocular muscles are intact and is moist. Neck is supple. Jugular veins are difficult to assess secondary to body habitus. Cardiac: S1, S2 regular rate and rhythm 1+ edema in the lower extremities. Improved breath sounds bilaterally but still diminished at the bases. No tachypnea or accessory muscle use. Abdomen is soft and obese. There is significant abdominal pannus. There are dressings on the wounds that are in the fat tissue folds. Genitourinary: Her Cordon catheter has been removed. Extremities are negative for clubbing and show 1+ edema. Psychiatric: Appropriate mood and affect. Neurologic: Oriented times three. No focal deficit. LABORATORIES: White count 10.2, hemoglobin 8.5, sodium 144, potassium 3.7, bicarbonate 25, BUN 80, creatinine 2.8. INPATIENT MEDICATIONS: I have discontinued her sodium bicarbonate supplement. I have increased her furosemide to 80 mg IV q. 8 hourly. Remainder of medications are unchanged from prior. PROBLEMS 1. Acute kidney injury (PIPPA) superimposed on proteinuric CKD stage IV, peak creatinine was 3.3. Has been improving over the past couple days, down to 2.8 today. Diuretics are being escalated now on combination Lasix 80 mg IV q. 8 hourly plus spironolactone 25 mg daily. She is slowly diuresing. She has been weaned off of supplemental oxygen. I believe we will be able to hold off on hemodialysis initiation given the favorable trend in her renal function. 2. Acute decompensated diastolic congestive heart failure with pleural effusions and peripheral edema slowly improving. Lasix is increased to 80 mg IV q. 8 hourly. Continue spironolactone 25 mg daily. Continue fluid restriction. Echocardiogram July 04 now shows that the inferior vena cava size is normal with only slight reduction in respiratory collapse suggestive of central venous pressure that is at the upper limits of normal. I believe we can transition her to oral diuretics tomorrow. The pericardial effusion has also decreased in size. 3. Anemia of chronic kidney disease status post Venofer infusion and continues on once weekly Aranesp, goal hemoglobin of 10-11. 4. Urinary retention status post Cordon catheter removal and has been voiding well. Would perform postvoid residual bladder scans prior to discharge to ensure that urinary retention does not occur. DISPOSITION: The patient is making improvement. Echocardiogram on 07/04 is indicative of improvement in her volume status. Continue IV diuretics for today with plan to transition to oral diuretics tomorrow. Renal function is improving. No need for hemodialysis initiation at present.
[2019-07-05 14:00] VITALS: BP 157/75
[2019-07-05] MEDS: WARFARIN SOD 2.5 MG TAB PO SCH (17:32)
[2019-07-05] MEDS: GABAPENTIN 300 MG CAP PO SCH (21:23)
[2019-07-05] MEDS: LATANOPROST 0.005% OPHTH SOLN 2.5 ML OU SCH (21:24)
[2019-07-05 22:00] VITALS: BP 146/81
[2019-07-06 01:27] VITALS: O2SAT 93
[2019-07-06] MEDS: ACETAMINOPH W/CODEINE #3 TAB UD PO PRN ×2 (03:50→11:05)
[2019-07-06 06:00] VITALS: BP 140/89
[2019-07-06 06:36] LABS: HEMATOCRIT 32.2 % (36.0-47.0); HEMOGLOBIN 9.8 g/dl (12.0-15.5); MEAN CORPUSCULAR HEMOGLOBIN 29.3 pg (27.0-33.0); MEAN CORPUSCULAR HGB CONC 30.4 g/dl (32.0-36.5); MEAN CORPUSCULAR VOLUME 96.4 fl (80.0-96.0); PLATELET COUNT, AUTOMATED 267 10^3/uL (150-450); RED BLOOD COUNT 3.34 10^6/uL (4.00-5.40); WHITE BLOOD COUNT 10.9 10^3/uL (4.0-10.0)
[2019-07-06 06:44] LABS: INR 2.28
[2019-07-06 07:02] LABS: CALCIUM LEVEL 9.3 MG/DL (8.8-10.2); CREATININE FOR GFR 2.84 MG/DL (0.55-1.30); GLOMERULAR FILTRATION RATE 17.6 (>45); POTASSIUM SERUM 3.7 MEQ/L (3.5-5.1)
[2019-07-06] MEDS: MONTELUKAST 10 MG TAB PO SCH (08:25)
[2019-07-06] MEDS: CETIRIZINE (ZyrTEC) 10 MG TAB PO SCH (08:26)
[2019-07-06] MEDS: SPIRONOLACTONE 25 MG TAB PO SCH (08:26)
[2019-07-06] MEDS: PANTOPRAZOLE 40MG TAB (PROTONIX) PO SCH (08:26)
[2019-07-06] MEDS: DIGOXIN 0.125 MG TAB PO SCH (08:26)
[2019-07-06 08:27] VITALS: BP 154/73
[2019-07-06] MEDS: FUROSEMIDE 100 MG/10 ML VIAL (J1940) IV SCH (08:27)
[2019-07-06] MEDS: CARVedilol 12.5 MG TAB PO SCH (08:27)
[2019-07-06] MEDS: HumaLOG INSULIN (NovoLOG) PER UNIT SC SCH ×2 (08:27→13:13)
[2019-07-06] MEDS ORDERED: TORSEMIDE 20 MG TAB PO SCH ×2 (09:00→17:00)
[2019-07-06 10:56] VITALS: O2SAT 95
[2019-07-06] MEDS ORDERED: TORS100T PO ×2 (11:47→11:56)
[2019-07-06] MEDS ORDERED: COUM2.5T17 PO (11:47)
[2019-07-06] MEDS ORDERED: ALDA25TA2 PO (11:47)
--- NOTE | 2019-07-06 12:44 | IPN ---
DATE OF SERVICE: 07/06/2019 SUBJECTIVE: The patient is seen and examined this morning at the bedside. Reports she has been feeling better. Remains on room air. Has been ambulating up and down the davis she says with the physical therapy as well. Still has some dyspnea with exertion. Net negative 1.5 liters in the past 24 hours. Renal function remains stable. Her hemoglobin/hematocrit (H/H) has up trended. Discharge planning discussed with the patient in detail. OBJECTIVE: Vital Signs: Temperature 98.5, pulse 70, respiratory rate 17, blood pressure 140/89, saturating 96% on room air. Net negative 1560 in the past 24 hours. General: The patient is seen sitting out of bed to the chair. Elderly female, short stature, obese, in no acute respiratory distress. Extraocular muscles are intact. Tongue is moist. Neck is supple. Jugular veins are unable to be assessed secondary to body habitus. Cardiac: S1 and S2, regular rate and rhythm. 1+ edema persists in the lower extremities up to the knees. There is improved breath sounds bilaterally, but still diminished at the bases. No tachypnea or accessory muscle use. Abdomen is soft and obese with pannus and wounds in the fat tissue folds, Genitourinary: No Cordon catheter. Extremities: Negative for clubbing, 1+ pitting edema to the knee. Psychiatric: Appropriate mood and affect. Neurologic: Oriented times three. No focal deficits. LABORATORY DATA: White count 10, hemoglobin 9.8, platelets 267. Sodium 144, potassium 3.7, BUN 77, creatinine 2.8. INPATIENT MEDICATIONS: IV Lasix is discontinued and switched to torsemide 50 mg by mouth twice daily. PROBLEMS: 1. 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 Renal function has improved with diuresis and correction of the volume status. She is still likely to progress to end-stage renal disease over the coming months and we will continue this conversation with her in the outpatient setting. At present, there is no urgent indication for hemodialysis initiation. Her electrolytes are reasonable. Her volume status has improved. She is being switched over to an oral diuretic regimen. 2. Decompensated diastolic congestive heart failure with pleural effusions. It has improved from prior. She is now on an oral regimen of spironolactone 25 mg daily and torsemide 50 mg twice daily. She can be discharged on this. She needs to continue with 50 ounce fluid restriction and 2 gram sodium diet. Her echocardiogram from 2 days ago now shows a normal size inferior vena cava with only slight reduction in respiratory collapse. She has a known pericardial effusion that has also decreased in size. She will need to follow up closely in the office. She will likely need hemodialysis initiation in the coming weeks to months given her combination of heart failure and advanced chronic kidney disease. 3. Anemia of chronic kidney disease status post Venofer infusion. Continues on weekly Aranesp. Hemoglobin has improved to 9.8. There was also likely a component of hemodilution and her H/H has up trended with correction of volume status. 4. Hypertension. Blood pressures are acceptable on the current regimen and I am not making any changes.
--- NOTE | 2019-07-06 14:59 | DSES ---
DATE OF ADMISSION: 06/30/2019 DATE OF DISCHARGE: 07/06/2019 ATTENDING PHYSICIAN: Jon Hahn MD PRIMARY CARE PROVIDER: SUDHA Fox, in the [facility] HISTORY OF PRESENT ILLNESS: This is a 69-year-old female who presented to [facility] Emergency Department (ED) after noticing an oxygen saturation drop into the mid-80s and 70s at home. Workup in the ED proved positive for congestive heart failure exacerbation with bilateral pleural effusions. The patient was subsequently admitted to the family medicine service. HOSPITAL COURSE: Nephrology was consulted secondary to the patient's chronic kidney disease and need for diuresis. A Cordon catheter was placed secondary to urinary retention and diuretic therapy. The patient was placed on high doses of intravenous (IV) Lasix and placed on a fluid restriction with excellent tolerability and diuresis over several days. The patient has been receiving physical therapy for her weakness. On 07/05/2019, the patient was cleared from physical therapy for return home. IMAGING: Completed includes chest x-ray, most recent 07/05/2019, large left effusion with adjacent atelectasis is noted with cardiomegaly. CONSULTATIONS: Nephrology, Woody Reynoso MD, and Idris Kinney DO On physical examination today, international normalized ratio (INR) is stable at 2.28. Electrolytes are stable. Most recent creatinine is 2.84, which is the best she has had since admission. Hemoglobin and hematocrit are stable at 9.8 and 32.2. White blood cell count 10.9. The patient is afebrile. Oxygen saturations are 95% on room air. The patient was witnessed ambulating in the davis with physical therapy with a four-wheeled walker with minimal assistance. On physical examination: HEENT: Neck is supple without lymphadenopathy or jugular venous distention (JVD). CARDIOVASCULAR: Heart rate and rhythm are regular. PULMONARY: Lungs are mildly diminished to the left side. Otherwise, clear on the right. BILATERAL LOWER EXTREMITIES: Are with 1+ edema. ABDOMEN: Is soft and nontender, yet the patient is obese, and secondary to body habitus, examination is difficult. ASSESSMENT AND PLAN: 1. Acute on chronic diastolic congestive heart failure. 2. Acute kidney injury superimposed on proteinuric chronic kidney disease stage IV. 3. Anemia of chronic disease. 4. Urinary retention. 5. Diabetes. 6. Morbid obesity. 7. Physical debility. 8. Hypertension. PLAN: The patient will be discharged to home. Diet is a consistent- carbohydrate [id number] 1200-mL fluid restricted diet. She will followup with primary care provider within the next 5-7 days. She will followup with nephrology within the next 1-2 weeks. Activity is as tolerated. [facility] will return in the home for nursing and physical therapy needs. MEDICATIONS: Are as follows: - spironolactone 25 mg one by mouth daily - torsemide 50 mg by mouth twice a day - warfarin sodium 2.5 mg by mouth daily - acetaminophen 1000 mg by mouth every 8 hours as needed for pain - Tylenol with codeine one tablet by mouth every 12 hours as needed for pain - Ventolin HFA two puffs every 4 hours as needed for shortness of breath - ammonium lactate one application topically twice a day as needed itching - calcitriol 0.25 mcg by mouth three times per week - carvedilol 12.5 mg by mouth twice a day - cetirizine 10 mg by mouth daily - digoxin 125 mcg by mouth three times per week - Colace 100 mg by mouth twice a day - vitamin D2 50,000 international units by mouth weekly - ferrous gluconate 324 mg by mouth every 2 days - Flonase one spray each nostril daily - gabapentin 300 mg by mouth nightly - insulin sliding scale premeals - glargine insulin 65 units subcutaneous daily - DuoNebs every 6 hours as needed for shortness of breath - probiotics two tablets by mouth daily with meals - Xalatan drops, one drop both eyes (OU) nightly - magnesium oxide 400 mg by mouth every 2 days - Singulair 10 mg by mouth daily - pantoprazole sodium 40 mg by mouth daily - sodium bicarbonate 225 mg by mouth twice a day - PreserVision softgels, one capsule by mouth twice a day The patient is discharged in stable and satisfactory condition with no further questions at time of discharge. [facility]
== END 2019-07-06 15:08 | disposition home health service (06) | DRG 291 ==
LOC: M ED 13:10 → M ED INP 17:50 → M MSPAV 20:45
PROVIDERS: ADMIT Student in an Organized Health Care Education/Training Program; ATTEND Family Medicine
DX: I13.0 Hypertensive heart and chronic kidney disease with heart failure and stage 1 through stage 4 chronic kidney disease, or unspecified chronic kidney disease (principal); I50.33 Acute on chronic diastolic (congestive) heart failure; N18.4 Chronic kidney disease, stage 4 (severe); I31.3 Pericardial effusion (noninflammatory); Z68.42 Body mass index [BMI] 45.0-49.9, adult; N17.9 Acute kidney failure, unspecified; E87.2 Acidosis; D63.1 Anemia in chronic kidney disease; R33.9 Retention of urine, unspecified; E11.22 Type 2 diabetes mellitus with diabetic chronic kidney disease; E66.01 Morbid (severe) obesity due to excess calories; G47.33 Obstructive sleep apnea (adult) (pediatric); I48.91 Unspecified atrial fibrillation; Z95.0 Presence of cardiac pacemaker; Z79.4 Long term (current) use of insulin; Z79.01 Long term (current) use of anticoagulants; Z79.899 Other long term (current) drug therapy; Z88.7 Allergy status to serum and vaccine; Z91.041 Radiographic dye allergy status; Z91.040 Latex allergy status; K75.81 Nonalcoholic steatohepatitis (NASH); K74.60 Unspecified cirrhosis of liver; L89.212 Pressure ulcer of right hip, stage 2; L89.222 Pressure ulcer of left hip, stage 2; R53.81 Other malaise

== ENCOUNTER → 2019-07-27 | Outpatient (REF) | payer MEDICARE ==
[~2019-07-27] MED LIST changes: +ALDA25TA2 PO; +CALC1CAP31 PO; +TORS100T PO
[2019-07-27 18:09] LABS: CHOLESTEROL LEVEL 126 MG/DL (<200); CHOLESTEROL RISK RATIO 4.064 (<5); HDL CHOLESTEROL 31 MG/DL (>40); NON-HDL-C 95 MG/DL; TRIGLYCERIDES LEVEL 479 MG/DL (<150)
[2019-07-29 09:22] LABS: HEPATITIS B SURFACE ANTIBODY NEGATIVE (POSITIVE)
[2019-07-29 09:32] LABS: HEPATITIS B SURFACE ANTIGEN NEGATIVE (NEGATIVE)
[2019-07-29 10:00] LABS: HEPATITIS C VIRUS ABY INDEX 0.1 INDEX (<0.8)
[2019-07-29 10:01] LABS: HEPATITIS B CORE ANTIBODY IGM NEGATIVE (NEGATIVE)
== END ==
LOC: M LAB REF 16:51
PROVIDERS: ATTEND Internal Medicine Nephrology
DX: E83.50 Unspecified disorder of calcium metabolism (principal); N18.5 Chronic kidney disease, stage 5; I12.0 Hypertensive chronic kidney disease with stage 5 chronic kidney disease or end stage renal disease

== ENCOUNTER 2019-07-28 13:42 | Outpatient (CLI) | payer MEDICARE ==
[~2019-07-28] VITALS: Ht 154.9 cm; Wt 112.8 kg
[~2019-07-28 13:42] MED LIST changes: +diphenhydrAMINE 25 MG CAP PO SCH
[2019-07-28 13:45] VITALS: BP 119/56
[2019-07-28] MEDS ORDERED: ACETAMINOPHEN 325 MG TAB PO ONE (14:00)
[2019-07-28 15:00] VITALS: BP 115/53
[2019-07-28 16:00] VITALS: BP 126/59
[2019-07-28 16:30] VITALS: BP 123/58
[2019-07-28 16:45] VITALS: BP 118/58
== END 2019-07-28 16:45 | disposition home or self-care (01) ==
LOC: M INFU 13:42
PROVIDERS: ATTEND Internal Medicine Nephrology
DX: N18.9 Chronic kidney disease, unspecified (principal); D63.1 Anemia in chronic kidney disease; Z88.7 Allergy status to serum and vaccine; Z91.041 Radiographic dye allergy status; Z91.048 Other nonmedicinal substance allergy status
CPT/HCPCS: 36430; P9016

== ENCOUNTER → 2019-08-02 | Outpatient (POV) | payer MEDICARE ==
[~2019-08-02] VITALS: Ht 154.9 cm; Wt 103.2 kg
[~2019-08-02] MED LIST changes: +HEPARIN 1,000 UNITS/ML 10ML VIAL (FOR RADIOLOGY& DIALYSIS ONLY) As Ordered ONE; +ISOVUE-300 61% 50ML VIAL (Q9967) As Ordered ONE; +LIDOCAINE 1% MDV 20ML VIAL As Ordered ONE; +MIDAZOLAM INJ 2 MG/2 ML VIAL (J2250) As Ordered ONE; -diphenhydrAMINE 25 MG CAP PO SCH; +diphenhydrAMINE INJ 50MG/ML VIAL (J1200) As Ordered ONE; +fentaNYL 100 MCG/2 ML INJECTION (J3010) As Ordered ONE
[2019-08-02 14:30] VITALS: BP 136/63
--- NOTE | 2019-08-03 11:43 | IRCOV ---
[facility] [place] IR Consult Office Visit DATE: Aug 02, 2019 REASON FOR CONSULTATION/CHIEF COMPLAINT: Renal failure. Needs PermCath placement. REFERRING PHYSICIAN: Dr. Reynoso HISTORY OF PRESENT ILLNESS: 69-year-old female with hypertension, obstructive sleep apnea, chronic kidney disease stage IV is referred by nephrology for PermCath placement. Patient is also scheduled to undergo a fistula formation but will require hemodialysis for several months prior to fistula maturation. ALLERGIES: Please see below. HOME MEDICATIONS: Please see below. PAST MEDICAL HISTORY: Hypertension Diverticulitis Obstructive sleep apnea Iron deficiency anemia Chronic kidney disease Atrial fibrillation Heart failure Dilated cardiomyopathy Gastric ulcers PAST SURGICAL HISTORY: Hernia repair Eye surgery Defibrillator implant FAMILY HISTORY: Noncontributory. SOCIAL HISTORY: Nonsmoker. Denies alcohol or drugs. REVIEW OF SYSTEMS: Otherwise negative PHYSICAL EXAMINATION: VITAL SIGNS: Please see below. GENERAL APPEARANCE: Appears well. Comfortable at rest. HEENT: No scleral icterus. RESPIRATORY: Normal breathing at rest. CARDIOVASCULAR: Normal rate. ABDOMEN: Soft nontender. EXTREMITIES: Pedal edema. NEUROLOGICAL: Alert and oriented. PSYCHIATRIC: Appropriate to circumstance. LABORATORY DATA: 07/27/2019 sodium 138 potassium 4.13 BUN 57 creatinine 3.85 hemoglobin 8.0 hematocrit 25.3 WBC 9.6 platelets 261 Imaging: I personally reviewed the non contrast CT chest from February 2019. Left- sided defibrillator noted. No right-sided catheters. ASSESSMENT/PLAN: 69 female with end-stage renal disease needs PermCath to start hemodialysis. We'll schedule the patient for the procedure to be done under moderate sedation. Patient is no longer on Coumadin. I spent 30 minutes in consultation with the patient. Thank you for this referral. Cc Dr Reynoso Allergies Coded Allergies: TAPE (Verified Allergy, Intermediate, reddness swelling, 04/26/19) tetanus immune globulin (Verified Allergy, Intermediate, SWELLING, 04/26/19) Contrast Media (Verified Adverse Reaction, Intermediate, kidney failure, 04/26/19) Home Medications Scheduled Calcitriol (Calcitriol), 0.25 MCG PO 3XW, (Reported) Carvedilol (Carvedilol), 12.5 MG PO BID, (Reported) Cetirizine HCl (Cetirizine HCl), 10 MG PO DAILY, (Reported) Digoxin (Digoxin), 125 MCG PO 3XW, (Reported) Docusate Sodium (Colace), 100 MG PO BID, (Reported) Ferrous Gluconate (Ferrous Gluconate), 324 MG PO Q2D, (Reported) Fluticasone Propionate (Flonase Allergy Relief), 1 SPRAY NARES DAILY, (Reported) Gabapentin (Neurontin), 300 MG PO QHS, (Reported) Insulin (Humulin R U-500), 1 DOSE SC AC, (Reported) Insulin Glargine,Hum.rec.anlog (Basaglar Kwikpen U-100), 65 UNIT SC DAILY, (Reported) Latanoprost (Xalatan), 1 DROP OU QHS, (Reported) Magnesium Oxide (Magnesium Oxide), 400 MG PO Q2D, (Reported) Montelukast Sodium (Montelukast Sodium), 10 MG PO DAILY, (Reported) Sodium Bicarbonate (Sodium Bicarbonate), 325 MG PO BID, (Reported) Spironolactone (Aldactone), 25 MG PO QAM Torsemide (Torsemide), 0.5 TAB PO BID Vit C/E/Zn/Coppr/Lutein/Zeaxan (Preservision Areds 2 Softgel), 1 CAP PO BID, (Reported) Warfarin Sodium (Coumadin), 2.5 MG PO DAILY@17 Scheduled PRN Acetaminophen (Acetaminophen), 1,000 MG PO Q8H PRN for PAIN, (Reported) Albuterol Sulfate (Ventolin Hfa), 2 PUFF INH Q4H PRN for SHORTNESS OF BREATH, (Reported) Ammonium Lactate (Ammonium Lactate), 1 APPLIC TOP BID PRN for ITCHING, (Reported) Ipratropium/Albuterol Sulfate (Iprat-Albut 0.5-3(2.5) mg/3 ml), 1 VIAL INH Q6H PRN for SHORTNESS OF BREATH, (Reported) Discontinued Medications Acetaminophen with Codeine (Tylenol with Codeine #3 Tablet), 1 TAB PO Q12H PRN for PAIN, (Reported) Discontinued Reason: PCP discontinued med Ergocalciferol (Vitamin D2) (Vitamin D2), 50,000 UNIT PO 1XWK, (Reported) Discontinued Reason: Pt states not taking L.acidoph/L.bulg/B.bif/S.therm (Letty-Bid Caplet), 2 TAB PO WM, (Reported) Discontinued Reason: Pt states not taking Pantoprazole Sodium (Pantoprazole Sodium), 40 MG PO DAILY, (Reported) Discontinued Reason: Pt states not taking VS, I&O, 24H, Fishbone Vital Signs/I&O Vital Signs Date Time Temp Pulse Resp B/P (MAP) Pulse Ox O2 Delivery O2 Flow Rate FiO2 08/02/19 14:30 97.3 74 18 136/63 (87) 94 Room Air DAVID ADAME MD Aug 03, 2019 11:43
== END ==
LOC: M IRPOV 14:26
PROVIDERS: ATTEND Radiology Diagnostic Radiology
DX: N18.4 Chronic kidney disease, stage 4 (severe) (principal); I13.0 Hypertensive heart and chronic kidney disease with heart failure and stage 1 through stage 4 chronic kidney disease, or unspecified chronic kidney disease; G47.33 Obstructive sleep apnea (adult) (pediatric); I48.91 Unspecified atrial fibrillation; I50.9 Heart failure, unspecified; I42.0 Dilated cardiomyopathy

== ENCOUNTER → 2019-08-03 | Outpatient (CLI) | payer MEDICARE ==
[~2019-08-03] MED LIST changes: +ALLO10TA PO; -DIGO0.12 PO; +DIGO0.123 PO; -DIGO0.25 PO; +DIGO0.253 PO; +ELIQ2.5T PO; -HEPARIN 1,000 UNITS/ML 10ML VIAL (FOR RADIOLOGY& DIALYSIS ONLY) As Ordered ONE; +HEPARIN 1,000 UNITS/ML 10ML VIAL (FOR RADIOLOGY& DIALYSIS ONLY) ONE; +HYDR-4514 PO; -ISOVUE-300 61% 50ML VIAL (Q9967) As Ordered ONE; -LIDOCAINE 1% MDV 20ML VIAL As Ordered ONE; +LIDOCAINE 1% MDV 20ML VIAL ONE; -MIDAZOLAM INJ 2 MG/2 ML VIAL (J2250) As Ordered ONE; +MIDAZOLAM INJ 2 MG/2 ML VIAL (J2250) ONE; +SPIR-10 PO; -diphenhydrAMINE INJ 50MG/ML VIAL (J1200) As Ordered ONE; +diphenhydrAMINE INJ 50MG/ML VIAL (J1200) ONE; -fentaNYL 100 MCG/2 ML INJECTION (J3010) As Ordered ONE; +fentaNYL 100 MCG/2 ML INJECTION (J3010) ONE
--- NOTE | 2019-08-03 16:21 | POST-OPPD ---
Postoperative Procedure Note Date Of Procedure: Aug 03, 2019 Time Of Procedure: 16:20 PREOPERATIVE DIAGNOSIS: Renal failure. Needs hemodialysis. POSTOPERATIVE DIAGNOSIS: Same FINDINGS: Patent right internal jugular vein PROCEDURE: Right IJ PermCath placed. Lock with heparin. Ready to use. SURGEON: Dustin ANESTHESIA: Mod sedation ESTIMATED BLOOD LOSS: Less than 5 mL COMPLICATIONS: None POSTOPERATIVE CONDITION: Stable DAVID ADAME MD Aug 03, 2019 16:21
[2019-08-03 18:10] VITALS: BP 124/60
--- NOTE | 2019-08-04 16:58 | REP ---
IR Permcath placement. IR ultrasound of the right neck. IR Permcath insertion under fluoroscopy and ultrasound guidance. IR moderate sedation. Clinical information: Renal failure. Needs dialysis. Physician: Dr. Chan. Procedure: The patient was advised of the benefits, risks and alternatives of the procedure and informed consent was obtained. The time-out was performed with verification of the patient's name, MRN, site of procedure and type of procedure to be performed. The patient was positioned in the supine position on the angiographic table. The site was prepped and draped in the usual sterile fashion. Moderate sedation was performed by the physician including the presence of an independent trained observer who assisted in monitoring the patient's level of consciousness and physiologic status. Following the administration of fentanyl and Versed , the physician spent 45 minutes of continuous face to face time with the patient. Ultrasound of the right neck reveals a patent and compressible right internal jugular vein. A warp doffer radiograph reveals a cardiac device. The neck and anterior chest wall were anesthetized with lidocaine. The right internal jugular vein was accessed under ultrasound guidance, using a micro introducer needle, via a lateral approach. An 018 cope wire was advanced into the inferior vena cava. Incision at the internal jugular access site and anterior chest wall were made using a scalpel. The needle was removed and the tract was serially dilated under fluoroscopy guidance. A peel away sheath was advanced over the wire under fluoroscopy guidance into the Superior vena cava. The catheter was inserted through the subcutaneous tissues of the chest wall with a tunneling device. The catheter was then advanced through the peel-away sheath under fluoroscopy guidance to the right atrium. The peel-away sheath was removed. The catheter was positioned with the tip in the right atrium. The puncture site was closed. The catheter was secured in place using 2-0 Prolene. Both sites were cleansed and sterile dressings applied. At the conclusion of the procedure, the ports of the catheter aspirate and flush freely. The catheter was locked with high-dose heparin. The patient tolerated the procedure well and was returned to the PRU in stable condition. EBL: < 5 ml. Complications: None. Conclusion: Successful placement of right sided Palindrome Permcath for dialysis. The catheter is ready for immediate use. Thank you this referral. Electronically Signed by Mercy Chan MD 08/04/2019 04:56 P
== END ==
LOC: M IRPRO 12:41
PROVIDERS: ATTEND Radiology Diagnostic Radiology
DX: N18.6 End stage renal disease (principal)
CPT/HCPCS: 11042; 36558; 99152; 99153; C1750; C1769; C1894; J1200; J2250; J3010

== ENCOUNTER 2019-08-23 14:59 | Inpatient (IN) | payer MEDICARE ==
[~2019-08-23] VITALS: Ht 154.9 cm; Wt 90.5 kg
[~2019-08-23 14:59] MED LIST changes: -HEPARIN 1,000 UNITS/ML 10ML VIAL (FOR RADIOLOGY& DIALYSIS ONLY) ONE; -LIDOCAINE 1% MDV 20ML VIAL ONE; -MIDAZOLAM INJ 2 MG/2 ML VIAL (J2250) ONE; -diphenhydrAMINE INJ 50MG/ML VIAL (J1200) ONE; -fentaNYL 100 MCG/2 ML INJECTION (J3010) ONE
[2019-08-24] MEDS ORDERED: dexameTHASONE 4 MG/ML 1ML VIAL (J1100) As Ordered ONE (09:23)
[2019-08-24] MEDS ORDERED: LIDOCAINE 2% INJ 100 MG/5 ML SDV (FOR ANES.) As Ordered ONE (09:23)
[2019-08-24] MEDS ORDERED: PROPOFOL 200 MG/20 ML VIAL As Ordered ONE (09:23)
[2019-08-24] MEDS ORDERED: ONDANSETRON 4MG/2ML VIAL (J2405) As Ordered ONE (09:23)
[2019-08-24] MEDS ORDERED: MIDAZOLAM INJ 2 MG/2 ML VIAL (J2250) As Ordered ONE (09:24)
[2019-08-24] MEDS ORDERED: fentaNYL 100 MCG/2 ML INJECTION (J3010) As Ordered ONE (09:24)
[2019-08-24] MEDS ORDERED: PHENYLephrine HCL 500 MCG/5 ML (100MCG/ML) SYRINGE (J2370) As Ordered ONE (13:02)
[2019-08-24] MEDS ORDERED: ALBUTEROL 90 MCG/ACT 8GM HFA INHALER INH PRN (15:00)
[2019-08-24] MEDS ORDERED: IPRATROPIUM 0.5MG/ALBUTEROL 2.5MG INH SOL UD 3ML (DUONEB)(J7620) NEB PRN (15:00)
[2019-08-24] MEDS ORDERED: ACETAMINOPHEN 500 MG TAB PO PRN (15:00)
--- NOTE | 2019-08-24 16:07 | HPEPDOC ---
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 CXR showed, Marked cardiomegaly and pulmonary vascular congestion. Large left lower lobe opacities suggesting effusion and consolidation. CT chest showed, Markedly enlarged pericardial effusion extending into the left hemithorax Moderate left small/moderate right pleural effusions with associated bibasilar atelectasis (left greater than right). She was transferred to ICU, receiving vitamin K and FFP for an INR of 2.8 in preparation for a pericardiocentesis which was performed on 08-16-19 with 1200cc removed. Patient was switched from Coumadin to Eliquis to avoid worsening calciphlyaxis and chest tube removed on 08-19-19. She continued to receive dialysis and underwent AVF placement on 08-24-19 after which she was discharged to ARU with significant impairments in mobility and ADLs. REVIEW OF SYSTEMS: The following is a completed review of systems and has been reviewed. Review of systems otherwise unremarkable. PAIN: Patient self reports wound pain EYES: No recent vision changes EARS, NOSE, & THROAT: No throat pain, or dysphagia, or rhinorrhea CARDIOVASCULAR: Denies chest pain or palpitations PULMONARY: Denies shortness of breath at rest GASTROINTESTINAL: Denies constipation/diarrhea GENITOURINARY: denies dysuria MUSCULOSKELETAL: generalized weakness NEUROLOGICAL:no focal tremor/seizure, +peripheral polyneuropathy HEMATOLOGICAL: +anemia SKIN: +abdominal fold ulcers PSYCHIATRIC: Unremarkable All other review of systems found to be negative. PAST MEDICAL HISTORY: as per HPI PAST SURGICAL HISTORY: AICD, tonsillectomy and adenoidectomy, umbilical hernia repair ALLERGIES: Please see below. MEDICATIONS: Please see below. 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 GENERAL: Pleasant and cooperative. No acute distress. obese HEENT: PERRL. Extraocular movements intact. Clear conjunctiva CARDIOVASCULAR: Regular rate and rhythm. No murmurs, rubs, or gallops LUNGS: Clear to auscultation bilaterally. No wheezes. No rhonchi ABDOMEN: Soft, nontender, nondistended. Positive bowel sounds. Normal active bowel sounds NEUROLOGICAL: Alert and oriented times three. Cranial nerves II through XII grossly intact. Sensation diminished to light touch in stocking pattern EXTREMITIES: 5\5 strength left upper extremities, 4/5 RUE (due to recent nerve block for AVF) 4\5 strength right lower extremity. 4/5 strength in left lower extremity. (-) clonus (-) edema SKIN: sacrum without ulcers, bilateral abdominal fold stage 3 ulcers, foul smelling with slough LABORATORY DATA: Please see below. IMAGING:Imaging documentation personally reviewed by record FUNCTIONAL STATUS: Premorbid: Modified Independent with all activities of daily life as well as mobility with RW On Admission: Minimum assistance for bathing, upper body dressing, bed chair and wheelchair transfers, toilet transfers, ambulation x 54 feet with RW GOALS: Modified Independent for bathing, upper body dressing, bed chair and wheelchair transfers, toilet transfers, ambulation community distances, medical optimization, caregiver training ASSESSMENT:69-year-old F with past medical history of CHF, Afib, COPD, DM, ESRD on dialysis who presents status post CHF decompensation with peripheral polyneuropathy PLAN: 1. Rehab: PT advance gait training, using energy conservation techniques, OT advance ADLs -RPE 4-5 (pacemaker in place so cannot advise on max HR using Karvonen formula), 02 management 2. Neuro: peripheral polyneuropathy with gait impairment due to longstanding DM 3. Cardiac: -hx diastolic CHF, home diuretics currently on hold due to recent pericardiocentesis and dialysis, monitor for soft BPs and c/u 1500cc fluid restriction -hx Afib patient with PM/AICD, c/u low dose beta donna, switched from Coumadin to Eliquis 2.5 BID, medicine consulted to assist in management -HLD- statin -f/u with Dr. Euceda on d/c 4. Resp: COPD with hypoventiliation syndrome, c/u breathing treatments, Singulair, and supplemental 02 goal 88-92% -DEEDEE on CPAP 5. endo: pmh DM with peripheral polyneuropathy c/u ISS 6. Renal: ESRD on HED Thu//Sat, renal consulted, patient receiving sodium thiosulfate in HD -will defer to renal for restarting home diuretics, on hold for now as discussed with Dr. Kinney 7.Heme: anemia of chronic disease: c/u iron, Aranesp per renal 8. GI ppx: protonix 9. DVT ppx: on Eliquis, TEDs 10. Skin: abdominal skin fold calciphilaxis, followed by Dr Hickman, teleme dicine consult placed for further recs 11. Pain: morphine Er 15mg BID and oxycodone prn, monitor for altered mental status or respiratory decline 12. Dispo: TBD POST ADMISSION PHYSICIAN EVALUATION: Medical and functional status: Description of medical status, medical assessment: As above. Rehabilitation diagnosis and current and prior cold morbid medical conditions as above. Risk of complications and plans to mitigate them as above. Description of functional status current status is as above. Prior status as above. Status compared to preadmission: There are no clinically significant differences between the patient's current status and the information described on the preadmission screening document. Treatment plan anticipated: Treatment plan is as described above. Required disciplines including physical therapy, occupational therapy, others as noted above. Intensity of services: 3 hours a day, 6 days a week. Special considerations: There are no specific special or safety considerations that would likely preclude immediate implementation of an intensive rehabilitation program or subsequently influence the plan of care. ATTESTATION: Considering all the information above, it is my best judgment that this patient requires intensive rehabilitation therapy as described above and an inpatient hospital environment due to the complexity of nursing, medical, and rehabilitation needs required by the patient. Furthermore, this patient can reasonably be expected to participate in an benefit from an inpatient rehabilitation stay with an interdisciplinary team approach to the delivery of rehabilitation care under the direction and supervision of rehabilitation physician PROGNOSIS: fair ESTIMATED LENGTH OF STAY: 18-21 days. PROJECTED DISCHARGE DESTINATION: Home with family support and any durable medical equipment required to increase functional safety and mobility. TIME SPENT COUNSELING AND COORDINATING INITIAL CARE: Greater than 70 minutes. Vital Signs Vital Signs Date Time Temp Pulse Resp B/P (MAP) Pulse Ox O2 Delivery O2 Flow Rate FiO2 08/24/19 20:35 97.0 70 18 118/57 (77) 99 Nasal Cannula 2.0 Laboratory Data Labs 24H Laboratory Tests 2 08/24/19 14:03: Bedside Glucose (Misc Panel) 114 FSBS Laboratory Tests Test 08/24/19 14:03 Range/Units Bedside Glucose (Misc Panel) 114 80-115 MG/DL Home Medications Scheduled Allopurinol (Allopurinol) 100 Mg Tablet, 100 MG PO DAILY, (Reported) Apixaban (Eliquis) 2.5 Mg Tablet, 1 TAB PO BID start on 08/25/19 after procedure Atorvastatin Calcium (Atorvastatin Calcium) 40 Mg Tablet, 40 MG PO DAILY, (Reported) Carvedilol (Carvedilol) 12.5 Mg Tablet, 6.25 MG PO BID, (Reported) Cetirizine HCl (Cetirizine HCl) 10 Mg Tablet, 10 MG PO DAILY, (Reported) Digoxin (Digoxin) 125 Mcg Tablet, 125 MCG PO 3XW, (Reported) MON, WED, THU Docusate Sodium (Colace) 100 Mg Cap, 100 MG PO BID, (Reported) Ferrous Gluconate (Ferrous Gluconate) 324 Mg Tab, 324 MG PO Q2D, (Reported) Fluticasone Propionate (Flonase Allergy Relief) 50 Mcg/Act Spr, 1 SPRAY NARES DAILY, (Reported) Gabapentin (Neurontin) 300 Mg Cap, 300 MG PO QHS, (Reported) Insulin (Humulin R U-500) 1 Units/0.002 Ml Inj, 1 DOSE SC AC, (Reported) Insulin Glargine,Hum.rec.anlog (Basaglar Kwikpen U-100) 100 Unit/1 Ml Insuln.pen, 70 UNIT SC DAILY, (Reported) L.acidoph/L.bulg/B.bif/S.therm (Letty-Bid Caplet) 1 Each Tablet, 1 TAB PO WM, (Reported) Latanoprost (Xalatan) 0.005% 2.5ML Drops, 1 DROP OU QHS, (Reported) Magnesium Oxide (Magnesium Oxide) 400 Mg Tablet, 400 MG PO Q2D, (Reported) Montelukast Sodium (Montelukast Sodium) 10 Mg Tab, 10 MG PO DAILY, (Reported) Pantoprazole Sodium (Pantoprazole Sodium) 40 Mg Tablet.dr, 40 MG PO DAILY, (Reported) Sodium Bicarbonate (Sodium Bicarbonate) 325 Mg Tablet, 325 MG PO BID, (Reported) Spironolactone (Spironolactone) 25 Mg Tablet, 25 MG PO DAILY, (Reported) Tamsulosin HCl (Flomax) 0.4 Mg Capsule, 0.4 MG PO DAILY, (Reported) Torsemide (Torsemide) 100 Mg Tablet, 50 MG PO BID, (Reported) Vit C/E/Zn/Coppr/Lutein/Zeaxan (Preservision Areds 2 Softgel) 1 Each Capsule, 1 EACH PO BID, (Reported) Scheduled PRN Acetaminophen (Acetaminophen) 500 Mg Tablet, 1,000 MG PO Q8H PRN for PAIN, (Reported) Albuterol Sulfate (Ventolin Hfa) 18 Gm Hfa.aer.ad, 2 PUFF INH Q4H PRN for SHORTNESS OF BREATH, (Reported) Ammonium Lactate (Ammonium Lactate) 12 % Cre, 1 APPLIC TOP BID PRN for ITCHING, (Reported) APPLY TO FEET Hydrocodone/Acetaminophen (Hydrocodone-Acetamin 7.5-325) 1 Each Tablet, 1 TAB PO Q6HP PRN for BREAKTHROUGH PAIN Ipratropium/Albuterol Sulfate (Iprat-Albut 0.5-3(2.5) mg/3 ml) 3 Ml Ampul.neb, 1 VIAL INH Q6H PRN for SHORTNESS OF BREATH, (Reported) Allergies Coded Allergies: TAPE (Verified Allergy, Intermediate, reddness swelling, 04/26/19) tetanus immune globulin (Verified Allergy, Intermediate, SWELLING, 04/26/19 ) Contrast Media (Verified Adverse Reaction, Intermediate, kidney failure, 04/26/19) A-FIB/CHADSVASC A-FIB History Current/History of A-Fib/PAF?: Yes Current PO Anticoag Therapy: Yes MARK GLYNN MD Aug 24, 2019 16:07
[2019-08-24] MEDS ORDERED: GLUCOSE 4 GM CHEW TABLET PO PRN (16:45)
[2019-08-24] MEDS ORDERED: GLUCAGON FOR INJ 1 MG VIAL (J1610) SC PRN (16:45)
[2019-08-24] MEDS ORDERED: DEXTROSE 50% 50 ML SYRINGE IV PRN (16:45)
[2019-08-24] MEDS: HumaLOG INSULIN (NovoLOG) PER UNIT SC SCH ×2 (17:30→21:00)
[2019-08-24 20:35] VITALS: BP 118/57
[2019-08-24] MEDS: SENNA 8.6 MG TAB (SENOKOT) PO SCH (22:21)
[2019-08-24] MEDS: DOCUSATE SODIUM 100 MG CAP PO SCH (22:21)
[2019-08-24] MEDS: LACTOBACILLUS ACIDOPHILUS CAP (BACID) PO SCH (22:21)
[2019-08-24] MEDS: MORPHINE 15 MG SA TAB PO SCH (22:23)
[2019-08-24] MEDS ORDERED: PILL CUTTER 1 EACH XX PRN (23:30)
[2019-08-25] MEDS: LATANOPROST 0.005% OPHTH SOLN 2.5 ML OU SCH ×2 (00:58→22:28)
[2019-08-25] MEDS: FLUTICASONE PROP 0.05% NASAL SPRAY 16 GM (FLONASE) NARES SCH ×3 (00:58→22:28)
[2019-08-25] MEDS: METOPROLOL TART 12.5 MG PER 1/2 TAB PO SCH ×5 (00:58→23:17)
[2019-08-25] MEDS: APIXABAN 2.5 MG TAB (ELIQUIS) PO SCH ×3 (00:58→22:25)
[2019-08-25 02:00] VITALS: BP 149/66
[2019-08-25 06:00] VITALS: BP 122/58
[2019-08-25 06:51] LABS: BASO % 0.1 % (0.0-1.0); HEMATOCRIT 32.9 % (36.0-47.0); HEMOGLOBIN 9.9 g/dl (12.0-15.5); LYMPH # 0.5 10^3/uL (1.5-5.0); LYMPH % 5.7 % (24.0-44.0); MEAN CORPUSCULAR HEMOGLOBIN 28.9 pg (27.0-33.0); MEAN CORPUSCULAR HGB CONC 30.1 g/dl (32.0-36.5); MEAN CORPUSCULAR VOLUME 95.9 fl (80.0-96.0); MONO # 0.7 10^3/uL (0.0-0.8); MONO % 7.5 % (0.0-5.0); NEUTROPHILS # 7.9 10^3/uL (1.5-8.5); NEUTROPHILS % 85.8 % (36.0-66.0); PLATELET COUNT, AUTOMATED 246 10^3/uL (150-450); RED BLOOD COUNT 3.43 10^6/uL (4.00-5.40); WHITE BLOOD COUNT 9.2 10^3/uL (4.0-10.0)
[2019-08-25 07:16] LABS: ALBUMIN 2.7 GM/DL (3.2-5.2); BILIRUBIN,TOTAL 0.7 MG/DL (0.2-1.0); CALCIUM LEVEL 9.2 MG/DL (8.8-10.2); CREATININE FOR GFR 5.04 MG/DL (0.55-1.30); GLOMERULAR FILTRATION RATE 9.1 (>45); POTASSIUM SERUM 4.2 MEQ/L (3.5-5.1); TOTAL PROTEIN 8.9 GM/DL (6.4-8.2)
[2019-08-25] MEDS: HumaLOG INSULIN (NovoLOG) PER UNIT SC SCH ×4 (07:30→21:00)
[2019-08-25] MEDS: MAGNESIUM OXIDE 400 MG TAB (MAG-OX) PO SCH (08:16)
[2019-08-25] MEDS: PANTOPRAZOLE 40MG TAB (PROTONIX) PO SCH (08:16)
[2019-08-25] MEDS: DOCUSATE SODIUM 100 MG CAP PO SCH ×2 (08:16→22:25)
[2019-08-25] MEDS: ATORVASTATIN 20 MG TAB PO SCH (08:16)
[2019-08-25] MEDS: LACTOBACILLUS ACIDOPHILUS CAP (BACID) PO SCH ×3 (08:16→22:25)
[2019-08-25] MEDS: MORPHINE 15 MG SA TAB PO SCH ×2 (08:17→22:26)
[2019-08-25] MEDS: FERROUS GLUCONATE 324 MG TAB PO SCH (08:17)
[2019-08-25] MEDS: allopurinoL 100 MG TAB PO SCH (08:17)
[2019-08-25] MEDS: CETIRIZINE (ZyrTEC) 10 MG TAB PO SCH (08:17)
[2019-08-25] MEDS: MONTELUKAST 10 MG TAB PO SCH (08:18)
[2019-08-25] MEDS: NORCO, ANEXSIA 5/325MG TABLET (HYDROcodone/ACETAMINOPHEN) PO PRN ×3 (09:53→23:14)
[2019-08-25] MEDS ORDERED: SODIUM THIOSULFATE (25%) 12.5 GM/50 ML VIAL IV SCH (10:45)
[2019-08-25] MEDS ORDERED: SODIUM THIOSULFATE 25 GM in NS 100 ML IV SCH (11:15)
--- NOTE | 2019-08-25 11:55 | IPN ---
DATE: 08/25/2019 SUBJECTIVE: Patient is a 69-year-old female who was seen in her room in the acute rehabilitation unit. Patient says that she is feeling well today. Her only complaint is pain in the area of her groin that is secondary to wounds from calciphylaxis. Patient also states that she found a second lump in her breast, which are not painful at this time but she does not report any skin changes over the area. Patient had an arteriovenous fistula graft placed in her right arm yesterday. PHYSICAL EXAMINATION: VITALS: Temperature 97.7, pulse 70, respiratory rate 18, blood pressure 122/58, pulse oximetry 99% on 2 liters of oxygen via nasal cannula. GENERAL: Alert and oriented female who is sitting in her chair in the acute rehabilitation unit. Patient was not in any clear distress. HEENT: Normocephalic, atraumatic, anicteric sclerae with moist mucous membranes. NECK: Supple without jugular venous distention. CARDIOVASCULAR: Regular rate and rhythm with a systolic murmur, heard loudest over the right intercostal space. LUNGS: Clear to auscultation bilaterally. ABDOMEN: Soft, obese, and nontender. EXTREMITIES: There is trace pitting edema in the bilateral lower extremities. LABORATORY: White blood cell 9.2, hemoglobin 9.9, hematocrit 32.9, platelet count 246. Sodium 135, potassium 4.2, chloride 98, carbon dioxide 27, BUN 45, creatinine 5.04, glucose 100, calcium 9.2, total bilirubin 0.7, AST 29, ALT 13, alkaline phosphatase 232. Total protein 8.9, albumin 2.7. ASSESSMENT/PLAN: 1. End-stage renal disease: Patient is dialyzed on Thursday, , Thursday schedule and she will receive dialysis later on today. Patient will receive her dose of sodium thiosulfate today as well. 2. Congestive heart failure with pericardial effusion: Volume status is very well compensated and pericardial effusion has improved following drainage and aggressive dialysis. There is no intervention needed at this time. 3. Anemia: Stable and improving. She continues to receive a dose of Aranesp weekly. 4. Calciphylaxis: Patient will get sodium thiosulfate and she will continue this with hemodialysis three times a week. Patient also receives pain medication every 4 hours for the wounds.
[2019-08-25 12:00] VITALS: BP 122/57
[2019-08-25] MEDS: [UNRECOGNIZED DRUG - REMARK] XX SCH (12:00)
[2019-08-25 14:00] VITALS: BP 107/55
[2019-08-25] MEDS ORDERED: HEPARIN 1,000 UNITS/ML 10ML VIAL (FOR RADIOLOGY& DIALYSIS ONLY) XX ONE (17:45)
[2019-08-25] MEDS ORDERED: ONDANSETRON 4 MG TAB (S0181) PO ONE (18:51)
[2019-08-25 20:00] VITALS: BP 119/80
[2019-08-25] MEDS: SENNA 8.6 MG TAB (SENOKOT) PO SCH (22:25)
[2019-08-25 23:05] VITALS: BP 126/58
[2019-08-26] MEDS: NORCO, ANEXSIA 5/325MG TABLET (HYDROcodone/ACETAMINOPHEN) PO PRN (05:23)
[2019-08-26] MEDS: METOPROLOL TART 12.5 MG PER 1/2 TAB PO SCH ×3 (05:37→17:16)
[2019-08-26 06:27] VITALS: BP 117/55
[2019-08-26 06:45] LABS: BASO # 0.1 10^3/uL (0.0-0.2); BASO % 0.5 % (0.0-1.0); EOS # 0.2 10^3/uL (0.0-0.5); EOS % 1.7 % (0.0-3.0); LYMPH # 1.2 10^3/uL (1.5-5.0); LYMPH % 12.4 % (24.0-44.0); MEAN CORPUSCULAR HEMOGLOBIN 29.1 pg (27.0-33.0); MEAN CORPUSCULAR HGB CONC 30.3 g/dl (32.0-36.5); MEAN CORPUSCULAR VOLUME 95.9 fl (80.0-96.0); MONO # 1.3 10^3/uL (0.0-0.8); MONO % 13.2 % (0.0-5.0); NEUTROPHILS # 6.9 10^3/uL (1.5-8.5); NEUTROPHILS % 71.7 % (36.0-66.0); PLATELET COUNT, AUTOMATED 236 10^3/uL (150-450); RED BLOOD COUNT 3.44 10^6/uL (4.00-5.40); WHITE BLOOD COUNT 9.6 10^3/uL (4.0-10.0)
[2019-08-26 07:16] LABS: CALCIUM LEVEL 9.6 MG/DL (8.8-10.2); CREATININE FOR GFR 4.29 MG/DL (0.55-1.30); GLOMERULAR FILTRATION RATE 10.9 (>45); POTASSIUM SERUM 3.7 MEQ/L (3.5-5.1)
[2019-08-26] MEDS: HumaLOG INSULIN (NovoLOG) PER UNIT SC SCH ×4 (07:30→21:00)
[2019-08-26] MEDS: LACTOBACILLUS ACIDOPHILUS CAP (BACID) PO SCH ×3 (09:26→21:31)
[2019-08-26] MEDS: ATORVASTATIN 20 MG TAB PO SCH (09:26)
[2019-08-26] MEDS: PANTOPRAZOLE 40MG TAB (PROTONIX) PO SCH (09:26)
[2019-08-26] MEDS: DOCUSATE SODIUM 100 MG CAP PO SCH ×2 (09:27→21:33)
[2019-08-26] MEDS: MONTELUKAST 10 MG TAB PO SCH (09:28)
[2019-08-26] MEDS: APIXABAN 2.5 MG TAB (ELIQUIS) PO SCH ×2 (09:28→21:31)
[2019-08-26] MEDS: allopurinoL 100 MG TAB PO SCH (09:28)
[2019-08-26] MEDS: CETIRIZINE (ZyrTEC) 10 MG TAB PO SCH (09:28)
[2019-08-26] MEDS: MORPHINE 15 MG SA TAB PO SCH ×2 (09:28→21:34)
[2019-08-26] MEDS: MOM 30ML SUSPENSION UDC PO PRN (09:33)
[2019-08-26] MEDS: FLUTICASONE PROP 0.05% NASAL SPRAY 16 GM (FLONASE) NARES SCH ×2 (09:33→21:37)
[2019-08-26] MEDS ORDERED: oxyCODONE 5MG TAB PO PRN (09:45)
--- NOTE | 2019-08-26 09:59 | IPNPDOC ---
PM&R Progress Note DATE OF SERVICE: Aug 26, 2019 Driver Merchandiser Progress Note Subjective: Patient reporting her right wrist hurts after banging it on her wheelchair. REVIEW OF SYSTEMS: The following is a completed review of systems and has been reviewed. Review of systems otherwise unremarkable. PAIN: Patient self reports wound pain EYES: No recent vision changes EARS, NOSE, & THROAT: No throat pain, or dysphagia, or rhinorrhea CARDIOVASCULAR: Denies chest pain or palpitations PULMONARY: Denies shortness of breath at rest GASTROINTESTINAL: Denies constipation/diarrhea GENITOURINARY: denies dysuria MUSCULOSKELETAL: generalized weakness NEUROLOGICAL:no focal tremor/seizure, +peripheral polyneuropathy HEMATOLOGICAL: +anemia SKIN: +abdominal fold ulcers PSYCHIATRIC: Unremarkable All other review of systems found to be negative. PHYSICAL EXAMINATION: VITAL SIGNS: Please see below. GENERAL: Pleasant and cooperative. No acute distress. obese HEENT: PERRL. Extraocular movements intact. Clear conjunctiva CARDIOVASCULAR: Regular rate and rhythm. No murmurs, rubs, or gallops LUNGS: Clear to auscultation bilaterally. No wheezes. No rhonchi ABDOMEN: Soft, nontender, nondistended. Positive bowel sounds. Normal active bowel sounds NEUROLOGICAL: Alert and oriented times three. Cranial nerves II through XII grossly intact. Sensation diminished to light touch in stocking pattern EXTREMITIES: 5\5 strength left upper extremities, 4/5 RUE (due to recent nerve block for AVF) 4\5 strength right lower extremity. 4/5 strength in left lower extremity. (-) clonus (-) edema right wrist with TTP 1st MCP joint and scaphoid, no local swelling/warmth SKIN: sacrum without ulcers, bilateral abdominal fold stage 3 ulcers, foul smelling with slough ASSESSMENT:69-year-old F with past medical history of CHF, Afib, COPD, DM, ESRD on dialysis who presents status post CHF decompensation with peripheral polyneuropathy PLAN: 1. Rehab: PT advance gait training, using energy conservation techniques, OT advance ADLs -RPE 4-5 (pacemaker in place so cannot advise on max HR using Karvonen formula), 02 management 2. Neuro: peripheral polyneuropathy with gait impairment due to longstanding DM 3. Cardiac: -hx diastolic CHF, home diuretics currently on hold due to recent pericardiocentesis and dialysis, monitor for soft BPs and c/u 1500cc fluid restriction -hx Afib patient with PM/AICD, c/u low dose beta donna, switched from Coumadin to Eliquis 2.5 BID, medicine consulted to assist in management -HLD- statin -f/u with Dr. Euceda on d/c 4. Resp: COPD with hypoventiliation syndrome, c/u breathing treatments, Singulair, and supplemental 02 goal 88-92% -DEEDEE on CPAP 5. endo: pmh DM with peripheral polyneuropathy c/u ISS 6. Renal: ESRD on HED Thu//Sat, renal consulted, patient receiving sodium thiosulfate in HD -will defer to renal for restarting home diuretics, on hold for now as discussed with Dr. Kinney 7.Heme: anemia of chronic disease: c/u iron, Aranesp per renal 8. GI ppx: protonix 9. DVT ppx: on Eliquis, TEDs 10. Skin: abdominal skin fold calciphilaxis, will follow Dr. Hickman's recs which were obtained from patient and - change -- 11. Pain: morphine Er 15mg BID and oxycodone standing, monitor for altered mental status or respiratory depression- stable -right wrist pain, likely inflammatory after local trauma- acewrapped, will order lidoderm for nights 12. Dispo: TBD--patient and questioning need for mammogram after recent imaging showed mass? I am not seeing this in-house recent records, will discuss with PMD, Marisel Maradiaga prior to discharge for follow-up Allergies Coded Allergies: TAPE (Verified Allergy, Intermediate, reddness swelling, 04/26/19) tetanus immune globulin (Verified Allergy, Intermediate, SWELLING, ) Contrast Media (Verified Adverse Reaction, Intermediate, kidney failure, 04/26/19) Vital Signs Vital Signs Date Time Temp Pulse Resp B/P (MAP) Pulse Ox O2 Delivery O2 Flow Rate FiO2 08/26/19 06:27 97.1 69 18 117/55 (75) 100 Nasal Cannula 2.0 Laboratory Data CBC/BMP Laboratory Tests 08/26/19 06:13 Labs 24H Laboratory Tests 2 08/25/19 11:52: Bedside Glucose (Misc Panel) 87 08/25/19 16:36: Bedside Glucose (Misc Panel) 89 08/25/19 20:41: Bedside Glucose (Misc Panel) 109 08/26/19 06:13: Immature Granulocyte % (Auto) 0.5, Neutrophils (%) (Auto) 71.7H, Lymphocytes (%) (Auto) 12.4L, Monocytes (%) (Auto) 13.2H, Eosinophils (%) (Auto) 1.7, Basophils (%) (Auto) 0.5, Neutrophils # (Auto) 6.9, Lymphocytes # (Auto) 1.2L, Monocytes # (Auto) 1.3H, Eosinophils # (Auto) 0.2, Basophils # (Auto) 0.1, Nucleated Red Blood Cells % (auto) 0.0, Anion Gap 11, Glomerular Filtration Rate 10.9L, Calcium Level 9.6 08/26/19 06:39: Bedside Glucose (Misc Panel) 79L Current Medications Current Medications Current Medications Medications (Trade) Dose Ordered Sig/Dion Route PRN Reason Start Time Stop Time Status Last Admin Dose Admin Acetaminophen (Tylenol Tab) 650 mg Q4HP PRN PO fever or pain 1-4 08/24/19 15:00 Acetaminophen (Tylenol Tab) 1,000 mg Q6HP PRN PO PAIN / FEVER 08/24/19 15:00 08/25/19 16:35 Acetaminophen/ Hydrocodone Bitart (Banner, Anexsia 5/325) 1 tab Q4HP PRN PO MILD/MODERATE PAIN (PS 1-7) 08/24/19 15:00 08/26/19 05:23 Albuterol Sulfate (Proventil, Ventolin Hfa) 2 puff Q2HP PRN INH SHORTNESS OF BREATH 08/24/19 15:00 Albuterol/ Ipratropium (Duoneb (Ipr 0.5mg/Alb 2.5mg)) 3 ml Q6HP PRN NEB SOB/WHEEZING 08/24/19 15:00 Allopurinol (Zyloprim) 100 mg DAILY PO 08/25/19 09:00 08/25/19 08:17 Apixaban (Eliquis) 2.5 mg BID PO 08/24/19 21:00 08/25/19 22:25 Atorvastatin Calcium (Lipitor) 40 mg DAILY PO 08/25/19 09:00 08/25/19 08:16 Cetirizine HCl (ZyrTEC) 10 mg DAILY PO 08/25/19 09:00 08/25/19 08:17 Dextrose (Dextrose 50%) 25 ml ASDIRECTED PRN IV SEE LABEL COMMENTS 08/24/19 16:45 Docusate Sodium (Colace) 100 mg BID PO 08/24/19 21:00 08/25/19 22:25 Ferrous Gluconate (Fergon) 324 mg Q2D PO 08/25/19 09:00 08/25/19 08:17 Fluticasone Propionate (Flonase 0.05% Nasal [place]) 1 spray BID NARES 08/24/19 21:00 08/25/19 22:28 Glucagon (Glucagon) 1 mg ASDIRECTED PRN SC SEE LABEL COMMENTS 08/24/19 16:45 Glucose (Glucose) 16 GM ASDIRECTED PRN PO SEE LABEL COMMENTS 08/24/19 16:45 Home Med (Med Rec Complete!) ASDIRECTED XX 08/24/19 21:15 08/24/19 21:16 DC Insulin Human Lispro (HumaLOG INSULIN) SEE PROTOCOL TABLE AC SC 08/24/19 17:30 Insulin Human Lispro (HumaLOG INSULIN) SEE PROTOCOL TABLE QHS SC 08/24/19 21:00 Lactobacillus Acidophilus (Bacid) 1 ea TID PO 08/24/19 21:00 08/25/19 22:25 Latanoprost (Xalatan 0.005% Op Soln) 1 drop QHS OU 08/24/19 21:00 08/25/19 22:28 Magnesium Hydroxide (Milk Of Magnesia) 30 ml DAILYPRN PRN PO CONSTIPATION 08/24/19 15:00 Magnesium Oxide (Mag-Ox) 400 mg Q2D PO 08/25/19 09:00 08/25/19 08:16 Metoprolol Tartrate (Lopressor) 6.25 mg Q6H PO 08/25/19 00:00 08/26/19 05:37 Miscellaneous (Unresolved Clarification Entry) SEE LABEL COMMENTS DAILY XX 08/24/19 09:00 08/25/19 00:19 DC Montelukast Sodium (Singulair) 10 mg DAILY PO 08/25/19 09:00 08/25/19 08:18 Morphine Sulfate (Ms Contin) 15 mg BID PO 08/24/19 21:00 08/25/19 22:26 Non-Formulary Medication ( See Comment Field Below ) CHECK TO SEE IF THE PATIENT... DAILY@1200 XX 08/25/19 12:00 Pantoprazole Sodium (Protonix) 40 mg DAILY PO 08/25/19 09:00 08/25/19 08:16 Senna (Senokot) 1 tab QHS PO 08/24/19 21:00 08/25/19 22:25 Sodium Thiosulfate 25 gm/ Sodium Chloride 200 ml @ 200 mls/hr HD IV 08/25/19 11:15 Sodium Thiosulfate (Sodium Thiosulfate) 30 gm HD IV 08/25/19 10:45 MARK SALGADO MD Aug 26, 2019 09:58
[2019-08-26] MEDS: oxyCODONE 5MG TAB PO SCH ×3 (11:44→21:33)
[2019-08-26] MEDS: ACETAMINOPHEN 500 MG TAB PO SCH ×3 (11:44→21:39)
[2019-08-26] MEDS: [UNRECOGNIZED DRUG - REMARK] XX SCH (12:00)
[2019-08-26] MEDS: SANTYL OINT 30GM TOP SCH (13:03)
[2019-08-26 15:00] VITALS: BP 117/54
--- NOTE | 2019-08-26 15:15 | CR.PDOC ---
General Date of Consultation: Aug 26, 2019 Referring Provider: MARK GLYNN MD Attending Physician: KAMILAH ARTHUR MD Consultation REASON FOR CONSULTATION/CHIEF COMPLAINT: [Medical management]. HISTORY OF PRESENT ILLNESS: [This is a 69 years old white female with past medical history of chronic kidney disease/end-stage renal disease on hemodialysis Tuesdays, and Saturdays, history of chronic disease, atrial fibrillation on eliquis, grade 1 diastolic dysfunction, morbid obesity, fatty liver, hypertension, obstructive sleep apnea on CPAP, diabetes mellitus with diabetic neuropathy, COPD, and obesity, hypoventilation syndrome, chronic O2 with 2 L nasal cannula last, psoriasis, GI bleed was admitted to the hospital with chief complaint of weakness, hypotension, and patient was found in acute exacerbation of CHF. Patient initially was admitted to ICU where she was diuresed as well as the pericardiocentesis was performed with 200 mL of fluid removed. Patient had the mass or pericardial effusion, which was drained chest tube was later removed and patient was sent to ARU for further care. At the present time, patient is stable. Offers no complaints in no apparent distress]. ALLERGIES: Please see below. HOME MEDICATIONS: Please see below. PAST MEDICAL HISTORY: End-stage renal disease on hemodialysis, anemia of chronic disease, insulin- dependent diabetes mellitus type 2, diabetic nephropathy, A. fib, diastolic dysfunction, morbid obesity, fatty liver, hypertension, DEEDEE, GI bleed and COPD PAST SURGICAL HISTORY: Past like to wa and adenoidectomy, umbilical hernia repair FAMILY HISTORY: Father: CAD Mother: Diabetes mellitus and CAD SOCIAL HISTORY: Retired, lives with her aspirin, niacin, tobacco, alcohol or drug abuse REVIEW OF SYSTEMS: CONSTITUTIONAL: [No complaints]. HEENT: [, No eye pain, ear pain or throat pain]. CARDIOVASCULAR: [. No palpitations. No chest pain]. RESPIRATORY: [, No shortness of breath or cough]. GENITOURINARY: [No urinary frequency or dysuria]. MUSCULOSKELETAL: [. No weakness or tiredness]. GASTROINTESTINAL: [, No abdominal pain or bleeding]. SKIN: [No rash]. NEUROLOGICAL: [. No weakness or loss of sensation]. PSYCHIATRIC: [Anxiety and depression]. ENDOCRINE: History of diabetes mellitus HEMATOLOGIC/LYMPHATIC: [History of anemia]. ALLERGIC/IMMUNOLOGIC: [No allergies]. PHYSICAL EXAMINATION: VITAL SIGNS: Please see below. GENERAL APPEARANCE: [Within normal limits]. HEENT: [PERRLA. Extraocular muscles intact]. RESPIRATORY: [Clear to A&P]. CARDIOVASCULAR: [S1, S2, regular]. ABDOMEN: [Benign]. EXTREMITIES: [No clubbing, cyanosis, edema]. NEUROLOGICAL: [Focal motor sensory deficit]. PSYCHIATRIC: [Normal]. LABORATORY DATA: Please see below. ASSESSMENT/PLAN: #1. He will. Pericardium status post percutaneous tube pericardiostomy #2 CK D/end-stage renal disease, on HD 3 times a week #3. Decompensated diastolic heart failure # 4. Debility and weakness #5. Calciphylaxis #6. Diabetes mellitus type 2 #7 proximal A. fib #8 anemia of chronic disease and iron deficiency anemia #9. Morbid obesity # 10. Hypertension #11. Fatty liver #12, DEEDEE on CPAP #13. History of GI bleed #. 14. Chronic respiratory failure on 2 L nasal cannula #15 COPD on 2 L nasal cannula 16, psoriasis This is 69 years old white female, obese, with past medical history of extensive multiple medical problems including hemodialysis. She is been admitted to ARU with generalized weakness which started when the hemodialysis was started' urinary stent ICU. Dr. Hawthorne has drained her peritoneum, about 1200 mL of bloody fluid with the pericardiostomy for concern of impending cardiac Or not and her INR was reversed with vitamin K and a 50 before the procedure. Patient remained in ICU and head hemodialysis performed. Progressively, patient felt better and was transferred to medical floor from ICU and later on transferred to ARU. Continue Coreg, digoxin and apixaban for atrial fibrillation Continue ferrous sulfate for iron deficiency anemia pt is on on statins atorvastatin 40 mg by mouth daily for hyperlipidemia Continue spironolactone, torsemide for CHF Continue montelukast, sertraline for COPD And delirium nephrology meds, such as sodium bicarbonate allopurinol as per nephrology Patient Levemir when I checked and will keep an eye on it and frequently repeat the laboratory work to adjust the dosage of her medication. , Will gladly follow patient with you. Dr. Fishman, thank you for calling this consultation Vital Signs/I&O Vital Signs Date Time Temp Pulse Resp B/P (MAP) Pulse Ox O2 Delivery O2 Flow Rate FiO2 08/26/19 12:44 18 08/26/19 12:00 70 105/54 08/26/19 09:00 2.0 08/26/19 06:27 97.1 100 Nasal Cannula I&O- Last 24 Hours up to 6 AM 08/26/19 06:00 Intake Total 730 ml Output Total 2500 ml Balance -1770 ml Laboratory Data Labs 24H Laboratory Tests 2 08/25/19 16:36: Bedside Glucose (Misc Panel) 89 08/25/19 20:41: Bedside Glucose (Misc Panel) 109 08/26/19 06:13: Immature Granulocyte % (Auto) 0.5, Neutrophils (%) (Auto) 71.7H, Lymphocytes (%) (Auto) 12.4L, Monocytes (%) (Auto) 13.2H, Eosinophils (%) (Auto) 1.7, Basophils (%) (Auto) 0.5, Neutrophils # (Auto) 6.9, Lymphocytes # (Auto) 1.2L, Monocytes # (Auto) 1.3H, Eosinophils # (Auto) 0.2, Basophils # (Auto) 0.1, Nucleated Red Blood Cells % (auto) 0.0, Anion Gap 11, Glomerular Filtration Rate 10.9L, Calcium Level 9.6 08/26/19 06:39: Bedside Glucose (Misc Panel) 79L 08/26/19 12:12: Bedside Glucose (Misc Panel) 115 CBC/BMP Laboratory Tests 08/26/19 06:13 Allergies Coded Allergies: TAPE (Verified Allergy, Intermediate, reddness swelling, 04/26/19) tetanus immune globulin (Verified Allergy, Intermediate, SWELLING, 04/26/19) Contrast Media (Verified Adverse Reaction, Intermediate, kidney failure, 04/26/19) Home Medications Scheduled Allopurinol (Allopurinol) 100 Mg Tablet, 100 MG PO DAILY, (Reported) Apixaban (Eliquis) 2.5 Mg Tablet, 1 TAB PO BID for 30 Days, #60 start on 08/25/19 after procedure Atorvastatin Calcium (Atorvastatin Calcium) 40 Mg Tablet, 40 MG PO DAILY, (Reported) Carvedilol (Carvedilol) 12.5 Mg Tablet, 6.25 MG PO BID, (Reported) Cetirizine HCl (Cetirizine HCl) 10 Mg Tablet, 10 MG PO DAILY, (Reported) Digoxin (Digoxin) 125 Mcg Tablet, 125 MCG PO 3XW, (Reported) MON, WED, FRI Docusate Sodium (Colace) 100 Mg Cap, 100 MG PO BID, (Reported) Ferrous Gluconate (Ferrous Gluconate) 324 Mg Tab, 324 MG PO Q2D, (Reported) Fluticasone Propionate (Flonase Allergy Relief) 50 Mcg/Act Spr, 1 SPRAY NARES DAILY, (Reported) Gabapentin (Neurontin) 300 Mg Cap, 300 MG PO QHS, (Reported) Insulin (Humulin R U-500) 1 Units/0.002 Ml Inj, 1 DOSE SC AC, (Reported) Insulin Glargine,Hum.rec.anlog (Basaglar Kwikpen U-100) 100 Unit/1 Ml Insuln.pen, 70 UNIT SC DAILY, (Reported) L.acidoph/L.bulg/B.bif/S.therm (Letty-Bid Caplet) 1 Each Tablet, 1 TAB PO WM, (Reported) Latanoprost (Xalatan) 0.005% 2.5ML Drops, 1 DROP OU QHS, (Reported) Magnesium Oxide (Magnesium Oxide) 400 Mg Tablet, 400 MG PO Q2D, (Reported) Montelukast Sodium (Montelukast Sodium) 10 Mg Tab, 10 MG PO DAILY, (Reported) Pantoprazole Sodium (Pantoprazole Sodium) 40 Mg Tablet.dr, 40 MG PO DAILY, (Reported) Sodium Bicarbonate (Sodium Bicarbonate) 325 Mg Tablet, 325 MG PO BID, (Reported) Spironolactone (Spironolactone) 25 Mg Tablet, 25 MG PO DAILY, (Reported) Tamsulosin HCl (Flomax) 0.4 Mg Capsule, 0.4 MG PO DAILY, (Reported) Torsemide (Torsemide) 100 Mg Tablet, 50 MG PO BID, (Reported) Vit C/E/Zn/Coppr/Lutein/Zeaxan (Preservision Areds 2 Softgel) 1 Each Capsule, 1 EACH PO BID, (Reported) Scheduled PRN Acetaminophen (Acetaminophen) 500 Mg Tablet, 1,000 MG PO Q8H PRN for PAIN, (Reported) Albuterol Sulfate (Ventolin Hfa) 18 Gm Hfa.aer.ad, 2 PUFF INH Q4H PRN for SHORTNESS OF BREATH, (Reported) Ammonium Lactate (Ammonium Lactate) 12 % Cre, 1 APPLIC TOP BID PRN for ITCHING, (Reported) APPLY TO FEET Hydrocodone/Acetaminophen (Hydrocodone-Acetamin 7.5-325) 1 Each Tablet, 1 TAB PO Q6HP PRN for BREAKTHROUGH PAIN for 7 Days, #28 Ipratropium/Albuterol Sulfate (Iprat-Albut 0.5-3(2.5) mg/3 ml) 3 Ml Ampul.neb, 1 VIAL INH Q6H PRN for SHORTNESS OF BREATH, (Reported) KAMILAH ARTHUR MD Aug 26, 2019 15:15
[2019-08-26 20:43] VITALS: BP 114/57
[2019-08-26] MEDS: SENNA 8.6 MG TAB (SENOKOT) PO SCH (21:34)
[2019-08-26] MEDS: LATANOPROST 0.005% OPHTH SOLN 2.5 ML OU SCH (21:37)
[2019-08-26] MEDS: LIDOCAINE 5% (LIDODERM) PATCH TD SCH (21:37)
[2019-08-27] MEDS: METOPROLOL TART 12.5 MG PER 1/2 TAB PO SCH ×5 (00:29→23:42)
[2019-08-27 03:00] VITALS: BP 133/62
[2019-08-27] MEDS: MOM 30ML SUSPENSION UDC PO PRN (05:27)
[2019-08-27] MEDS: oxyCODONE 5MG TAB PO SCH ×4 (06:34→21:32)
[2019-08-27 06:57] LABS: BASO # 0.1 10^3/uL (0.0-0.2); BASO % 0.8 % (0.0-1.0); EOS # 0.2 10^3/uL (0.0-0.5); EOS % 2.4 % (0.0-3.0); HEMATOCRIT 34.2 % (36.0-47.0); HEMOGLOBIN 10.6 g/dl (12.0-15.5); LYMPH # 1.1 10^3/uL (1.5-5.0); LYMPH % 11.9 % (24.0-44.0); MEAN CORPUSCULAR HEMOGLOBIN 29.3 pg (27.0-33.0); MEAN CORPUSCULAR VOLUME 94.5 fl (80.0-96.0); MONO # 1.2 10^3/uL (0.0-0.8); MONO % 12.6 % (0.0-5.0); NEUTROPHILS # 6.9 10^3/uL (1.5-8.5); NEUTROPHILS % 71.8 % (36.0-66.0); PLATELET COUNT, AUTOMATED 276 10^3/uL (150-450); RED BLOOD COUNT 3.62 10^6/uL (4.00-5.40); WHITE BLOOD COUNT 9.6 10^3/uL (4.0-10.0)
[2019-08-27 07:29] LABS: ALBUMIN 2.6 GM/DL (3.2-5.2); BILIRUBIN,TOTAL 0.9 MG/DL (0.2-1.0); CALCIUM LEVEL 9.1 MG/DL (8.8-10.2); CREATININE FOR GFR 5.86 MG/DL (0.55-1.30); GLOMERULAR FILTRATION RATE 7.6 (>45); MAGNESIUM LEVEL 2.5 MG/DL (1.8-2.4); POTASSIUM SERUM 4.1 MEQ/L (3.5-5.1); TOTAL PROTEIN 8.8 GM/DL (6.4-8.2)
[2019-08-27] MEDS: HumaLOG INSULIN (NovoLOG) PER UNIT SC SCH ×4 (07:50→21:00)
[2019-08-27] MEDS: ATORVASTATIN 20 MG TAB PO SCH (07:50)
[2019-08-27] MEDS: LACTOBACILLUS ACIDOPHILUS CAP (BACID) PO SCH ×3 (07:50→21:30)
[2019-08-27] MEDS: DOCUSATE SODIUM 100 MG CAP PO SCH ×2 (07:50→21:30)
[2019-08-27] MEDS: ACETAMINOPHEN 500 MG TAB PO SCH ×3 (07:50→21:43)
[2019-08-27] MEDS: allopurinoL 100 MG TAB PO SCH (07:51)
[2019-08-27] MEDS: PANTOPRAZOLE 40MG TAB (PROTONIX) PO SCH (07:51)
[2019-08-27] MEDS: MONTELUKAST 10 MG TAB PO SCH (07:51)
[2019-08-27] MEDS: APIXABAN 2.5 MG TAB (ELIQUIS) PO SCH ×2 (07:52→21:30)
[2019-08-27] MEDS: MORPHINE 15 MG SA TAB PO SCH ×2 (07:52→21:35)
[2019-08-27] MEDS: FERROUS GLUCONATE 324 MG TAB PO SCH (07:52)
[2019-08-27] MEDS: CETIRIZINE (ZyrTEC) 10 MG TAB PO SCH (07:52)
[2019-08-27] MEDS: FLUTICASONE PROP 0.05% NASAL SPRAY 16 GM (FLONASE) NARES SCH ×2 (07:55→21:33)
[2019-08-27] MEDS: SANTYL OINT 30GM TOP SCH (07:56)
[2019-08-27] MEDS: **NOTE PATIENT COMMENT** MISC XX SCH (08:58)
[2019-08-27 09:00] VITALS: BP 122/54
[2019-08-27] MEDS: MAGNESIUM OXIDE 400 MG TAB (MAG-OX) PO SCH (09:27)
[2019-08-27] MEDS ORDERED: HEPARIN 1,000 UNITS/ML 10ML VIAL (FOR RADIOLOGY& DIALYSIS ONLY) XX ONE (13:00)
--- NOTE | 2019-08-27 13:45 | IPN ---
DATE OF SERVICE: 08/27/2019 SUBJECTIVE: The patient is a 69-year-old female who was seen sitting in the bedside chair in the acute rehabilitation unit. The patient says that she is feeling well today. The patient's only complaint today is pain around her right thumb. The patient says she has been squeezing the exercise ball that they have given her to practice for when she is on dialysis with her AV fistula. The patient says she has been doing this a lot, and now she has difficulty moving her thumb. Other than that, the patient says she is doing well. PHYSICAL EXAMINATION: VITAL SIGNS: Temperature 97.2, pulse 70, respiratory rate 16, blood pressure 122/54, pulse oximetry 99% on 2 liters via nasal cannula. GENERAL: Alert and oriented female who is sitting in the bedside chair in the acute rehabilitation unit. The patient was in no acute distress. HEENT: Normocephalic, atraumatic with moist mucous membranes. NECK: Supple without jugular venous distention. CARDIOVASCULAR: A regular rate and rhythm with a systolic murmur heard loudest over the right 2nd intercostal space. LUNGS: Clear to auscultation bilaterally. ABDOMEN: Soft, obese, and nontender. EXTREMITIES: There was trace pitting edema in her bilateral lower extremities. LABORATORY: White blood cells 9.6, hemoglobin 10.6, hematocrit 34.2, platelet count 276. Sodium 132, potassium 4.1, chloride 95, carbon dioxide 22, BUN 55, creatinine 5.86, fasting glucose 136, calcium 9.1, magnesium 2.5, total bilirubin 0.9, AST 46, ALT 7, alkaline phosphatase 350, total protein 8.8, albumin 2.6. ASSESSMENT AND PLAN: 1. End-stage renal disease. The patient is dialyzed on a Thursday, , Thursday schedule, and she will receive dialysis later this afternoon. The patient will also receive her dose of sodium thiosulfate today. 2. Congestive heart failure with pericardial effusion. Volume status is very well compensated after aggressive dialysis, and her pericardial effusion has improved following drainage. There is no intervention needed at this time. She will continue with dialysis today. 3. Anemia, which is improving. She will receive a dose of Aranesp weekly. 4. Calciphylaxis. The patient will receive her dose of sodium thiosulfate today with dialysis, and she will get this with her schedule dialysis. The patient receives pain medication for the wounds every 4 hours and gets wound care.
[2019-08-27] MEDS: ONDANSETRON 4 MG TAB (S0181) PO PRN (15:39)
[2019-08-27] MEDS: [UNRECOGNIZED DRUG - REMARK] XX SCH (16:00)
[2019-08-27 18:30] VITALS: BP 118/55
[2019-08-27] MEDS: ACETAMINOPHEN TAB 650MG DOSE (2X325MG) PO PRN (18:57)
[2019-08-27 19:45] VITALS: BP 120/58
[2019-08-27] MEDS: SENNA 8.6 MG TAB (SENOKOT) PO SCH (21:30)
[2019-08-27] MEDS: LATANOPROST 0.005% OPHTH SOLN 2.5 ML OU SCH (21:33)
[2019-08-27] MEDS: LIDOCAINE 5% (LIDODERM) PATCH TD SCH (21:34)
[2019-08-27 23:38] VITALS: BP 90/55
[2019-08-28 05:15] VITALS: BP 120/59
[2019-08-28] MEDS: METOPROLOL TART 12.5 MG PER 1/2 TAB PO SCH ×3 (06:00→17:05)
[2019-08-28 06:05] VITALS: BP 110/54
[2019-08-28] MEDS: oxyCODONE 5MG TAB PO SCH ×4 (06:26→21:45)
[2019-08-28] MEDS: ACETAMINOPHEN 500 MG TAB PO SCH ×3 (09:27→21:43)
[2019-08-28] MEDS: HumaLOG INSULIN (NovoLOG) PER UNIT SC SCH ×4 (09:28→21:00)
[2019-08-28] MEDS: MORPHINE 15 MG SA TAB PO SCH ×2 (09:28→21:43)
[2019-08-28] MEDS: MONTELUKAST 10 MG TAB PO SCH (09:28)
[2019-08-28] MEDS: LACTOBACILLUS ACIDOPHILUS CAP (BACID) PO SCH ×3 (09:29→21:44)
[2019-08-28] MEDS: allopurinoL 100 MG TAB PO SCH (09:29)
[2019-08-28] MEDS: APIXABAN 2.5 MG TAB (ELIQUIS) PO SCH ×2 (09:29→21:44)
[2019-08-28] MEDS: ATORVASTATIN 20 MG TAB PO SCH (09:29)
[2019-08-28] MEDS: DOCUSATE SODIUM 100 MG CAP PO SCH ×2 (09:29→21:44)
[2019-08-28] MEDS: CETIRIZINE (ZyrTEC) 10 MG TAB PO SCH (09:29)
[2019-08-28] MEDS: PANTOPRAZOLE 40MG TAB (PROTONIX) PO SCH (09:29)
[2019-08-28] MEDS: FLUTICASONE PROP 0.05% NASAL SPRAY 16 GM (FLONASE) NARES SCH ×2 (09:31→21:42)
[2019-08-28] MEDS: **NOTE PATIENT COMMENT** MISC XX SCH (09:34)
[2019-08-28] MEDS: SANTYL OINT 30GM TOP SCH (09:34)
--- NOTE | 2019-08-28 10:56 | IPNPDOC ---
Subjective Date Seen The patient was seen on 08/28/19. Subjective Chief Complaint/HPI No new complaints. Patient is receiving physical therapy General: Denies: ROS Unobtainable, Chills, Night Sweats, Fatigue, Malaise, Normal Appetite, Other Symptoms Constitutional: Denies: Chills, Fever, Malaise, Night Sweats, Weakness, Fatigue, Weight Loss, Lethargy, Other Pulmonary: Denies: Dyspnea, Cough, Pleuritic Chest Pain, Other Symptoms Cardiovascular: Denies: Chest Pain, Palpitations, Orthopnea, Paroxysmal Noc. Dyspnea, Edema, Lt Headedness, Other Symptoms Gastrointestinal: Denies: Nausea, Vomiting, Abdominal Pain, Diarrhea, Constipation, Melena, Hematochezia, Other Symptoms Endocrine: Denies: Polydipsia, Polyphagia, Polyuria, Heat Intolerance, Cold Intolerance, Other Endocrine Sx Musculoskeletal: Denies: Neck Pain, Back Pain, Shoulder Pain, Arm Pain, Hand Pain, Leg Pain, Foot Pain, Joint Pain, Muscle Pain, Spasms, Other Symptoms Neurological: Denies: Weakness, Numbness, Incoordination, Change in speech, Confusion, Seizures, Other Symptoms Objective Physical Examination General Exam: Positive: Alert, Cooperative ENT Exam: Positive: Atraumatic, Mucous membr. moist/pink Neck Exam: Positive: Supple Chest Exam: Positive: Clear to auscultation, Normal air movement Heart Exam: Positive: Rate Normal, Normal S1, Normal S2 Abdomen Exam: Positive: Normal bowel sounds, Soft Extremity Exam: Positive: Normal pulses Skin Exam: Positive: Nl turgor and temperature Neuro Exam: Positive: Strength at 5/5 X4 ext, Sensation Intact, Cranial Nerves 3-12 NL Assessment /Plan Problems (1) Congestive heart failure (CHF) Status: Acute Problem Text: Patient is clinically stable and compensated Status post pericardial effusion drainage Continue the meds (2) CKD (chronic kidney disease), stage IV Status: Chronic Problem Text: End-stage renal disease on hemodialysis Continue hemodialysis on Thursday, and Thursday as per schedule Continue sodium thiosulfate and further meds as per nephrology (3) Calciphylaxis Status: Chronic Problem Text: Patient receiving her sodium thiosulfate with dialysis (4) Hypertension Status: Chronic Problem Text: Under control Continue present medications (5) Atrial fibrillation Status: Chronic Problem Text: Continue Coreg, digoxin and anticoagulation with eliquis Plan/VTE VTE Prophylaxis Ordered?: Yes VS, I&O, 24H, Fishbone Vital Signs/I&O Vital Signs Date Time Temp Pulse Resp B/P (MAP) Pulse Ox O2 Delivery O2 Flow Rate FiO2 08/28/19 09:28 18 08/28/19 06:26 Nasal Cannula 2.0 08/28/19 06:05 69 110/54 (72) 08/28/19 05:15 97.6 97 I&O- Last 24 Hours up to 6 AM 08/28/19 06:00 Intake Total 810 ml Output Total 2000 ml Balance -1190 ml Laboratory Data 24H LABS Laboratory Tests 2 08/27/19 11:19: Bedside Glucose (Misc Panel) 100 08/27/19 16:58: Bedside Glucose (Misc Panel) 157H 08/27/19 19:47: Bedside Glucose (Misc Panel) 130H 08/28/19 05:14: Bedside Glucose (Misc Panel) 122H KAMILAH ARTHUR MD Aug 28, 2019 10:56
[2019-08-28] MEDS: [UNRECOGNIZED DRUG - REMARK] XX SCH (11:50)
[2019-08-28 14:00] VITALS: BP 137/58
[2019-08-28 20:00] VITALS: BP 108/51
[2019-08-28] MEDS: LIDOCAINE 5% (LIDODERM) PATCH TD SCH (21:42)
[2019-08-28] MEDS: LATANOPROST 0.005% OPHTH SOLN 2.5 ML OU SCH (21:43)
[2019-08-28] MEDS: SENNA 8.6 MG TAB (SENOKOT) PO SCH (21:44)
[2019-08-29] MEDS: METOPROLOL TART 12.5 MG PER 1/2 TAB PO SCH ×5 (00:08→23:51)
[2019-08-29 06:00] VITALS: BP 132/60
[2019-08-29] MEDS: oxyCODONE 5MG TAB PO SCH ×2 (06:31→12:00)
[2019-08-29] MEDS: HumaLOG INSULIN (NovoLOG) PER UNIT SC SCH ×4 (07:30→20:07)
[2019-08-29] MEDS: MONTELUKAST 10 MG TAB PO SCH (08:38)
[2019-08-29] MEDS: ATORVASTATIN 20 MG TAB PO SCH (08:38)
[2019-08-29] MEDS: allopurinoL 100 MG TAB PO SCH (08:38)
[2019-08-29] MEDS: ACETAMINOPHEN 500 MG TAB PO SCH ×3 (08:39→20:11)
[2019-08-29] MEDS: MAGNESIUM OXIDE 400 MG TAB (MAG-OX) PO SCH (08:39)
[2019-08-29] MEDS: DOCUSATE SODIUM 100 MG CAP PO SCH ×2 (08:39→20:09)
[2019-08-29] MEDS: PANTOPRAZOLE 40MG TAB (PROTONIX) PO SCH (08:39)
[2019-08-29] MEDS: FERROUS GLUCONATE 324 MG TAB PO SCH (08:39)
[2019-08-29] MEDS: CETIRIZINE (ZyrTEC) 10 MG TAB PO SCH (08:39)
[2019-08-29] MEDS: APIXABAN 2.5 MG TAB (ELIQUIS) PO SCH ×2 (08:39→20:09)
[2019-08-29] MEDS: LACTOBACILLUS ACIDOPHILUS CAP (BACID) PO SCH ×3 (08:39→20:09)
[2019-08-29] MEDS: FLUTICASONE PROP 0.05% NASAL SPRAY 16 GM (FLONASE) NARES SCH ×2 (08:40→20:09)
[2019-08-29] MEDS: MORPHINE 15 MG SA TAB PO SCH (08:40)
[2019-08-29] MEDS: **NOTE PATIENT COMMENT** MISC XX SCH (08:41)
[2019-08-29] MEDS ORDERED: ALTEPLASE 2 MG/2 ML VIAL (J2997 PER 1MG) IV PRN (09:30)
--- NOTE | 2019-08-29 09:32 | IPNPDOC ---
PM&R Progress Note DATE OF SERVICE: Aug 29, 2019 Insemination Worker Progress Note Subjective: Patient reporting she is feeling ok today and is worried about having her wounds changed at home as her can no longer do it without help. REVIEW OF SYSTEMS: The following is a completed review of systems and has been reviewed. Review of systems otherwise unremarkable. PAIN: Patient self reports wound pain EYES: No recent vision changes EARS, NOSE, & THROAT: No throat pain, or dysphagia, or rhinorrhea CARDIOVASCULAR: Denies chest pain or palpitations PULMONARY: Denies shortness of breath at rest GASTROINTESTINAL: Denies constipation/diarrhea GENITOURINARY: denies dysuria MUSCULOSKELETAL: generalized weakness NEUROLOGICAL:no focal tremor/seizure, +peripheral polyneuropathy HEMATOLOGICAL: +anemia SKIN: +abdominal fold ulcers PSYCHIATRIC: Unremarkable All other review of systems found to be negative. PHYSICAL EXAMINATION: VITAL SIGNS: Please see below. GENERAL: Pleasant and cooperative. No acute distress. obese HEENT: PERRL. Extraocular movements intact. Clear conjunctiva CARDIOVASCULAR: Regular rate and rhythm. No murmurs, rubs, or gallops LUNGS: Clear to auscultation bilaterally. No wheezes. No rhonchi ABDOMEN: Soft, nontender, nondistended. Positive bowel sounds. Normal active bowel sounds NEUROLOGICAL: Alert and oriented times three. Cranial nerves II through XII grossly intact. Sensation diminished to light touch in stocking pattern EXTREMITIES: 5\5 strength left upper extremities, 4/5 RUE (due to recent nerve block for AVF) 4\5 strength right lower extremity. 4/5 strength in left lower extremity. (-) clonus (-) edema right wrist with TTP 1st MCP joint and scaphoid, no local swelling/warmth SKIN: sacrum without ulcers, bilateral abdominal fold stage 3 ulcers, foul smelling with slough, periwound dry ASSESSMENT:69-year-old F with past medical history of CHF, Afib, COPD, DM, ESRD on dialysis who presents status post CHF decompensation with peripheral p olyneuropathy PLAN: 1. Rehab: PT advance gait training, using energy conservation techniques, OT advance ADLs -RPE 4-5 (pacemaker in place so cannot advise on max HR using Karvonen formula), 02 management 2. Neuro: peripheral polyneuropathy with gait impairment due to longstanding DM 3. Cardiac: -hx diastolic CHF, home diuretics currently on hold due to recent rinku cardiocentesis and dialysis, monitor for soft BPs and c/u 1500cc fluid restriction -hx Afib patient with PM/AICD, c/u low dose beta donna, switched from Coumadin to Eliquis 2.5 BID, medicine consulted to assist in management -HLD- statin -f/u with Dr. Euceda on d/c 4. Resp: COPD with hypoventiliation syndrome, c/u breathing treatments, Singulair, and supplemental 02 goal 88-92% -DEEDEE on CPAP 5. endo: pmh DM with peripheral polyneuropathy c/u ISS 6. Renal: ESRD on HED Thu//Thu, renal consulted, patient receiving sodium thiosulfate in HD -will defer to renal for restarting home diuretics, on hold for now as discussed with Dr. Kinney 7.Heme: anemia of chronic disease: c/u iron, Aranesp per renal 8. GI ppx: protonix 9. DVT ppx: on Eliquis, TEDs 10. Skin: abdominal skin fold calciphilaxis, will follow Dr. Hickman's recs which were obtained from patient and - change -- 11. Pain: morphine Er 15mg BID and oxycodone standing, monitor for altered mental status or respiratory depression- stable -right wrist pain, likely inflammatory after local trauma- acewrapped, c/u lidoderm for nights 12. Dispo: TBD--patient and questioning need for mammogram after recent imaging showed mass? I am not seeing this in-house recent records, will discuss with PMD, Marisel Maradiaga prior to discharge for follow-up, patient requesting to stay in rehab until 09-06-19 as her will be out of town for her daughter's throat surgery until then Allergies Coded Allergies: TAPE (Verified Allergy, Intermediate, reddness swelling, 04/26/19) tetanus immune globulin (Verified Allergy, Intermediate, SWELLING, 04/26/19) Contrast Media (Verified Adverse Reaction, Intermediate, kidney failure, 04/26/19) Vital Signs Vital Signs Date Time Temp Pulse Resp B/P (MAP) Pulse Ox O2 Delivery O2 Flow Rate FiO2 08/29/19 08:40 18 08/29/19 06:30 74 132/60 08/29/19 06:00 97.4 91 Nasal Cannula 2.0 Laboratory Data Labs 24H Laboratory Tests 2 08/28/19 11:39: Bedside Glucose (Misc Panel) 143H 08/28/19 16:50: Bedside Glucose (Misc Panel) 134H 08/28/19 20:55: Bedside Glucose (Misc Panel) 136H 08/29/19 06:45: Bedside Glucose (Misc Panel) 87 Current Medications Current Medications Current Medications Medications (Trade) Dose Ordered Sig/Dion Route PRN Reason Start Time Stop Time Status Last Admin Dose Admin Acetaminophen (Tylenol Tab) 650 mg Q4HP PRN PO fever or pain 1-4 08/24/19 15:00 08/27/19 18:57 Acetaminophen (Tylenol Tab) 1,000 mg Q6HP PRN PO PAIN / FEVER 08/24/19 15:00 08/26/19 09:51 DC 08/25/19 16:35 Acetaminophen (Tylenol Tab) 1,000 mg TID PO 08/26/19 12:00 08/29/19 08:39 Acetaminophen/ Hydrocodone Bitart (Accident, Anexsia 5/325) 1 tab Q4HP PRN PO MILD/MODERATE PAIN (PS 1-7) 08/24/19 15:00 08/26/19 09:51 DC 08/26/19 05:23 Albuterol Sulfate (Proventil, Ventolin Hfa) 2 puff Q2HP PRN INH SHORTNESS OF BREATH 08/24/19 15:00 Albuterol/ Ipratropium (Duoneb (Ipr 0.5mg/Alb 2.5mg)) 3 ml Q6HP PRN NEB SOB/WHEEZING 08/24/19 15:00 Allopurinol (Zyloprim) 100 mg DAILY PO 08/25/19 09:00 08/29/19 08:38 Alteplase, Recombinant (Cathflo Activase) 4 mg ASDIRECTED PRN IV SEE LABEL COMMENTS 08/29/19 09:30 Apixaban (Eliquis) 2.5 mg BID PO 08/24/19 21:00 08/29/19 08:39 Atorvastatin Calcium (Lipitor) 40 mg DAILY PO 08/25/19 09:00 08/29/19 08:38 Cetirizine HCl (ZyrTEC) 10 mg DAILY PO 08/25/19 09:00 08/29/19 08:39 Collagenase (Santyl) APPLY TO BILATERAL HIP ... DAILY TOP 08/26/19 09:00 08/28/19 09:34 Dextrose (Dextrose 50%) 25 ml ASDIRECTED PRN IV SEE LABEL COMMENTS 08/24/19 16:45 Docusate Sodium (Colace) 100 mg BID PO 08/24/19 21:00 08/29/19 08:39 Ferrous Gluconate (Fergon) 324 mg Q2D PO 08/25/19 09:00 08/29/19 08:39 Fluticasone Propionate (Flonase 0.05% Nasal [facility]) 1 spray BID NARES 08/24/19 21:00 08/29/19 08:40 Glucagon (Glucagon) 1 mg ASDIRECTED PRN SC SEE LABEL COMMENTS 08/24/19 16:45 Glucose (Glucose) 16 GM ASDIRECTED PRN PO SEE LABEL COMMENTS 08/24/19 16:45 Home Med (Med Rec Complete!) ASDIRECTED XX 08/24/19 21:15 08/24/19 21:16 DC Insulin Human Lispro (HumaLOG INSULIN) SEE PROTOCOL TABLE AC SC 08/24/19 17:30 08/28/19 17:03 Insulin Human Lispro (HumaLOG INSULIN) SEE PROTOCOL TABLE QHS SC 08/24/19 21:00 Lactobacillus Acidophilus (Bacid) 1 ea TID PO 08/24/19 21:00 08/29/19 08:39 Latanoprost (Xalatan 0.005% Op Soln) 1 drop QHS OU 08/24/19 21:00 08/28/19 21:43 Lidocaine (Lidoderm Patch) 1 patch QHS TD 08/26/19 21:00 08/28/19 21:42 Magnesium Hydroxide (Milk Of Magnesia) 30 ml DAILYPRN PRN PO CONSTIPATION 08/24/19 15:00 08/27/19 05:27 Magnesium Oxide (Mag-Ox) 400 mg Q2D PO 08/25/19 09:00 08/29/19 08:39 Metoprolol Tartrate (Lopressor) 6.25 mg Q6H PO 08/25/19 00:00 08/29/19 06:30 Miscellaneous (Unresolved Clarification Entry) SEE LABEL COMMENTS DAILY XX 08/24/19 09:00 08/25/19 00:19 DC Montelukast Sodium (Singulair) 10 mg DAILY PO 08/25/19 09:00 08/29/19 08:38 Morphine Sulfate (Ms Contin) 15 mg BID PO 08/24/19 21:00 08/29/19 08:40 Non-Formulary Medication ( See Comment Field Below ) CHECK TO SEE IF THE PATIENT... DAILY@1200 XX 08/25/19 12:00 Non-Formulary Medication ( See Comment Field Below ) REMOVE LIDODERM PATCH DAILY@0900 XX 08/27/19 09:00 08/29/19 08:41 Ondansetron HCl (Zofran) 4 mg Q4HP PRN PO NAUSEA OR VOMITING 08/26/19 13:30 08/27/19 15:39 Oxycodone HCl (Roxicodone, Oxyir) 5 mg BID@0700,1200 PO 08/26/19 12:00 08/29/19 06:31 Oxycodone HCl (Roxicodone, Oxyir) 5 mg BID@1700,2100 PO 08/26/19 17:00 08/28/19 21:45 Oxycodone HCl (Roxicodone, Oxyir) 5 mg Q24HP PRN PO PAIN 08/26/19 09:45 Pantoprazole Sodium (Protonix) 40 mg DAILY PO 08/25/19 09:00 08/29/19 08:39 Senna (Senokot) 1 tab QHS PO 08/24/19 21:00 08/28/19 21:44 Sodium Thiosulfate 25 gm/ Sodium Chloride 200 ml @ 200 mls/hr HD IV 08/25/19 11:15 Sodium Thiosulfate (Sodium Thiosulfate) 30 gm HD IV 08/25/19 10:45 MARK SALGADO MD Aug 29, 2019 09:32
[2019-08-29] MEDS: SANTYL OINT 30GM TOP SCH (09:36)
[2019-08-29] MEDS: [UNRECOGNIZED DRUG - REMARK] XX SCH (11:30)
[2019-08-29 14:00] VITALS: BP 98/51
[2019-08-29] MEDS ORDERED: oxyCODONE 5MG TAB PO PRN (15:15)
[2019-08-29] MEDS ORDERED: oxyCODONE 5MG TAB PO SCH (17:00)
--- NOTE | 2019-08-29 18:40 | IPN ---
DATE: 08/28/2019 Mrs. Vargas is seen this morning on her bedside during rehabilitation. She was dialyzed yesterday late afternoon and did have some low blood pressure during dialysis but this morning she is feeling well and is walking with the physical therapist at the time of my visit. She denies any nausea, vomiting, dyspnea or chest pain. PHYSICAL EXAMINATION: Temperature 97.4 degrees Fahrenheit, heart rate 76 per minute and respiratory rate 20 per minute. Blood pressure 130s over 50s. Oxygen saturation is 98%. Neck is supple and without jugular venous distention (JVD) or thyroid enlargement. Head is atraumatic. Heart sounds are irregular in rhythm. Lungs with good bilateral air entry and no wheezing or rales. Abdomen is soft, obese and nontender. Abdominal wounds and groin area are covered with dressings. Neurologically, she is at her baseline mentation. No new laboratories done today. PROBLEMS: 1. End-stage renal disease. The patient has been on maintenance hemodialysis and she was dialyzed yesterday. Next dialysis will be scheduled for Thursday. Her volume status is well-compensated and electrolytes have been stable. 2. Hyponatremia. She had mild hyponatremia yesterday with sodium level 132 which is related to her end-stage renal disease. She was dialyzed yesterday and sodium level is likely already improved. Electrolytes should be checked again next week. 3. Anemia. Her anemia has been stable and we will continue to monitor closely. She receives Aranesp once a week during dialysis. 4. Calciphylaxis. She has wounds in her both groin areas secondary to calciphylaxis and has been on sodium thiosulfate infusion after each dialysis which will be continued.
[2019-08-29 20:00] VITALS: BP 114/60
[2019-08-29] MEDS: LATANOPROST 0.005% OPHTH SOLN 2.5 ML OU SCH (20:09)
[2019-08-29] MEDS: SENNA 8.6 MG TAB (SENOKOT) PO SCH (20:09)
[2019-08-29] MEDS: LIDOCAINE 5% (LIDODERM) PATCH TD SCH (20:10)
[2019-08-30 06:00] VITALS: BP 135/63
[2019-08-30] MEDS: MOM 30ML SUSPENSION UDC PO PRN (06:24)
[2019-08-30] MEDS: METOPROLOL TART 12.5 MG PER 1/2 TAB PO SCH ×4 (06:24→23:38)
[2019-08-30] MEDS: HumaLOG INSULIN (NovoLOG) PER UNIT SC SCH ×4 (06:48→21:00)
[2019-08-30 08:15] LABS: HEMATOCRIT 32.4 % (36.0-47.0); HEMOGLOBIN 9.8 g/dl (12.0-15.5); MEAN CORPUSCULAR HEMOGLOBIN 29.2 pg (27.0-33.0); MEAN CORPUSCULAR HGB CONC 30.2 g/dl (32.0-36.5); MEAN CORPUSCULAR VOLUME 96.4 fl (80.0-96.0); PLATELET COUNT, AUTOMATED 242 10^3/uL (150-450); RED BLOOD COUNT 3.36 10^6/uL (4.00-5.40); WHITE BLOOD COUNT 11.8 10^3/uL (4.0-10.0)
[2019-08-30] MEDS ORDERED: oxyCODONE 5MG TAB PO PRN (08:15)
[2019-08-30 08:41] LABS: ALBUMIN 2.6 GM/DL (3.2-5.2); CALCIUM LEVEL 9.5 MG/DL (8.8-10.2); CREATININE FOR GFR 7.57 MG/DL (0.55-1.30); GLOMERULAR FILTRATION RATE 5.7 (>45); PHOSPHORUS LEVEL 5.6 MG/DL (2.5-4.9); POTASSIUM SERUM 4.8 MEQ/L (3.5-5.1)
--- NOTE | 2019-08-30 08:47 | IPN ---
DATE OF VISIT: 08/29/2019 Mrs. Vargas is seen this morning on her bedside. She is sitting in the chair in her room. She is feeling about the same and reports pain on one spot on her right wrist since her AV fistula surgery. She denies any nausea, vomiting, dyspnea, or chest pain. On physical examination, temperature 97.4 degrees Fahrenheit, heart rate 74 per minute, and respiratory rate 18 per minute. Blood pressure 132/60 mmHg and oxygen saturation 91% on 2-liter oxygen. Head is atraumatic. Neck is supple and without jugular venous distention (JVD) or thyroid enlargement. PermCath is intact in her right internal jugular vein. Lungs have slightly diminished breath sounds at bases. Heart sounds are regular. Abdomen: Soft, obese, and nontender, and bowel sounds are present. Wound in her lower abdominal wall and groin area are covered with dressings. Neurologically, she has no focal deficit. Extremities have no cyanosis or clubbing. Right arm AV fistula is patent. The patient did not have any new laboratories today. PROBLEMS: 1. End-stage renal disease. Mrs. Vargas is dialyzed on Thursday, , and Thursday. She was last dialyzed on Thursday, and next dialysis will be scheduled for tomorrow. There is no emergent need for dialysis today. 2. Anemia. Her anemia has been stable, and we will continue to monitor and treat it with Aranesp once a week during dialysis. 3. Calciphylaxis. The patient remains on sodium thiosulfate 25 grams after each dialysis, which will be infused again tomorrow. Her wounds are being cared by the rehabilitation team. 4. Congestive heart failure. Volume status is reasonably well compensated, and we will continue to manage it with dialysis. 5. Poorly functioning dialysis catheter. Her dialysis catheter had decreased blood flow on Thursday, and we will use Activase with next dialysis. She has a new fistula done in her right arm, which is not ready for use as yet.
[2019-08-30] MEDS: **NOTE PATIENT COMMENT** MISC XX SCH (09:00)
[2019-08-30] MEDS: LACTOBACILLUS ACIDOPHILUS CAP (BACID) PO SCH ×3 (11:09→21:20)
[2019-08-30] MEDS: APIXABAN 2.5 MG TAB (ELIQUIS) PO SCH ×2 (11:09→21:20)
[2019-08-30] MEDS: DULoxetine 30 MG CAP (CYMBALTA) PO SCH (11:09)
[2019-08-30] MEDS: PANTOPRAZOLE 40MG TAB (PROTONIX) PO SCH (11:09)
[2019-08-30] MEDS: allopurinoL 100 MG TAB PO SCH (11:09)
[2019-08-30] MEDS: DOCUSATE SODIUM 100 MG CAP PO SCH ×2 (11:10→21:20)
[2019-08-30] MEDS: ACETAMINOPHEN 500 MG TAB PO SCH ×3 (11:11→21:22)
[2019-08-30] MEDS: ATORVASTATIN 20 MG TAB PO SCH (11:11)
[2019-08-30] MEDS: MONTELUKAST 10 MG TAB PO SCH (11:15)
[2019-08-30] MEDS: FLUTICASONE PROP 0.05% NASAL SPRAY 16 GM (FLONASE) NARES SCH ×2 (11:16→21:23)
--- NOTE | 2019-08-30 11:43 | IPNPDOC ---
PM&R Progress Note DATE OF SERVICE: Aug 30, 2019 Equity Research Analyst Progress Note Subjective: Patient reporting she feels less tired today and her pain is better despite not getting any morphine or oxycodone. She was educated last night on the dangers of being opioids and that they can cause lethargy, hallucinations, and respiratory depression. She is able to participate in therapy today. REVIEW OF SYSTEMS: The following is a completed review of systems and has been reviewed. Review of systems otherwise unremarkable. PAIN: Patient self reports wound pain EYES: No recent vision changes EARS, NOSE, & THROAT: No throat pain, or dysphagia, or rhinorrhea CARDIOVASCULAR: Denies chest pain or palpitations PULMONARY: Denies shortness of breath at rest GASTROINTESTINAL: Denies constipation/diarrhea GENITOURINARY: denies dysuria MUSCULOSKELETAL: generalized weakness NEUROLOGICAL:no focal tremor/seizure, +peripheral polyneuropathy HEMATOLOGICAL: +anemia SKIN: +abdominal fold ulcers PSYCHIATRIC: Unremarkable All other review of systems found to be negative. PHYSICAL EXAMINATION: VITAL SIGNS: Please see below. GENERAL: Pleasant and cooperative. No acute distress. obese HEENT: PERRL. Extraocular movements intact. Clear conjunctiva CARDIOVASCULAR: Regular rate and rhythm. No murmurs, rubs, or gallops LUNGS: Clear to auscultation bilaterally. No wheezes. No rhonchi ABDOMEN: Soft, nontender, nondistended. Positive bowel sounds. Normal active bowel sounds NEUROLOGICAL: Alert and oriented times three. Cranial nerves II through XII grossly intact. Sensation diminished to light touch in stocking pattern EXTREMITIES: 5\5 strength left upper extremities, 4/5 RUE (due to recent nerve block for AVF) 4\5 strength right lower extremity. 4/5 strength in left lower extremity. (-) clonus (-) edema right wrist with TTP 1st MCP joint and scaphoid, no local swelling/warmth SKIN: sacrum without ulcers, bilateral abdominal fold unstageable ulcers, foul smelling with slough, periwounds dry ASSESSMENT:69-year-old F with past medical history of CHF, Afib, COPD, DM, ESRD on dialysis who presents status post CHF decompensation with peripheral polyneuropathy PLAN: 1. Rehab: PT advance gait training, using energy conservation techniques, OT advance ADLs- ambualting with RW -RPE 4-5 (pacemaker in place so cannot advise on max HR using Karvonen formula), 02 tubing management 2. Neuro: peripheral polyneuropathy with gait impairment due to longstanding DM 3. Cardiac: -hx diastolic CHF, home diuretics currently on hold due to recent pericardiocentesis and dialysis, monitor for soft BPs and c/u 1500cc fluid restriction -hx Afib patient with PM/AICD, c/u low dose beta donna, switched from Coumadin to Eliquis 2.5 BID, medicine consulted to assist in management -HLD- statin -f/u with Dr. Euceda on d/c 4. Resp: COPD with hypoventiliation syndrome, c/u breathing treatments, Singulair, and supplemental 02 goal 88-92% -DEEDEE on CPAP 5. endo: pmh DM with peripheral polyneuropathy c/u ISS 6. Renal: ESRD on HED Thu//Thu, renal consulted, patient receiving sodium thiosulfate in HD -fluid management per Dr. Kinney, recs appreciated 7.Heme: anemia of chronic disease: c/u iron, Aranesp per renal 8. GI ppx: protonix 9. DVT ppx: on Eliquis, TEDs 10. Skin: abdominal skin fold calciphilaxis, discussed with Dr. Hickman, ok to use Santyl on areas of slough areas, to be changed daily 11. Pain: d/c'dmorphine Er 15mg BID and oxycodone standing yesterday for fatigue and AMS, started Cymbalta and changed tylenol to standing -right wrist pain, likely inflammatory after local trauma- acewrapped, will d/c lidoderm patch as can cause PRE SALES TECHNICAL CONSULTANT side effects as well 12. Dispo: TBD--patient and questioning need for mammogram after recent imaging showed mass? I am not seeing this in-house recent records, will discuss with PMD, Marisel Maradiaga prior to discharge for follow-up, patient requesting to stay in rehab until 09-06-19 as her will be out of town for her daughter's throat surgery until then Allergies Coded Allergies: TAPE (Verified Allergy, Intermediate, reddness swelling, 04/26/19) tetanus immune globulin (Verified Allergy, Intermediate, SWELLING, 04/14 11/30) Contrast Media (Verified Adverse Reaction, Intermediate, kidney failure, 04/26/19) Vital Signs Vital Signs Date Time Temp Pulse Resp B/P (MAP) Pulse Ox O2 Delivery O2 Flow Rate FiO2 08/30/19 11:10 78 135/63 08/30/19 06:00 97.6 17 100 Nasal Cannula 2.0 Laboratory Data CBC/BMP Laboratory Tests 08/30/19 07:45 Labs 24H Laboratory Tests 2 08/29/19 16:43: Bedside Glucose (Misc Panel) 133H 08/29/19 19:49: Bedside Glucose (Misc Panel) 124H 08/30/19 06:27: Bedside Glucose (Misc Panel) 85 08/30/19 07:45: Nucleated Red Blood Cells % (auto) 0.0, Anion Gap 14, Glomerular Filtration Rate 5.7L, Calcium Level 9.5, Phosphorus Level 5.6H, Albumin 2.6L Current Medications Current Medications Current Medications Medications (Trade) Dose Ordered Sig/Dion Route PRN Reason Start Time Stop Time Status Last Admin Dose Admin Acetaminophen (Tylenol Tab) 650 mg Q4HP PRN PO fever or pain 1-4 08/24/19 15:00 08/27/19 18:57 Acetaminophen (Tylenol Tab) 1,000 mg Q6HP PRN PO PAIN / FEVER 08/24/19 15:00 08/26/19 09:51 DC 08/25/19 16:35 Acetaminophen (Tylenol Tab) 1,000 mg TID PO 08/26/19 12:00 08/30/19 11:11 Acetaminophen/ Hydrocodone Bitart ([place], Anexsia 5/325) 1 tab Q4HP PRN PO MILD/MODERATE PAIN (PS 1-7) 08/24/19 15:00 08/26/19 09:51 DC 08/26/19 05:23 Albuterol Sulfate (Proventil, Ventolin Hfa) 2 puff Q2HP PRN INH SHORTNESS OF BREATH 08/24/19 15:00 Albuterol/ Ipratropium (Duoneb (Ipr 0.5mg/Alb 2.5mg)) 3 ml Q6HP PRN NEB SOB/WHEEZING 08/24/19 15:00 Allopurinol (Zyloprim) 100 mg DAILY PO 08/25/19 09:00 08/30/19 11:09 Alteplase, Recombinant (Cathflo Activase) 4 mg ASDIRECTED PRN IV SEE LABEL COMMENTS 08/29/19 09:30 Apixaban (Eliquis) 2.5 mg BID PO 08/24/19 21:00 08/30/19 11:09 Atorvastatin Calcium (Lipitor) 40 mg DAILY PO 08/25/19 09:00 08/30/19 11:11 Cetirizine HCl (ZyrTEC) 10 mg DAILY PO 08/25/19 09:00 08/29/19 15:07 DC 08/29/19 08:39 Collagenase (Santyl) APPLY TO BILATERAL HIP ... DAILY TOP 08/26/19 09:00 08/29/19 09:36 Dextrose (Dextrose 50%) 25 ml ASDIRECTED PRN IV SEE LABEL COMMENTS 08/24/19 16:45 Docusate Sodium (Colace) 100 mg BID PO 08/24/19 21:00 08/30/19 11:10 Duloxetine HCl (Cymbalta) 30 mg DAILY PO 08/30/19 09:00 08/30/19 11:09 Ferrous Gluconate (Fergon) 324 mg Q2D PO 08/25/19 09:00 08/29/19 08:39 Fluticasone Propionate (Flonase 0.05% Nasal [place]) 1 spray BID NARES 08/24/19 21:00 08/30/19 11:16 Glucagon (Glucagon) 1 mg ASDIRECTED PRN SC SEE LABEL COMMENTS 08/24/19 16:45 Glucose (Glucose) 16 GM ASDIRECTED PRN PO SEE LABEL COMMENTS 08/24/19 16:45 Home Med (Med Rec Complete!) ASDIRECTED XX 08/24/19 21:15 08/24/19 21:16 DC Insulin Human Lispro (HumaLOG INSULIN) SEE PROTOCOL TABLE AC SC 08/24/19 17:30 08/29/19 17:27 Insulin Human Lispro (HumaLOG INSULIN) SEE PROTOCOL TABLE QHS SC 08/24/19 21:00 Lactobacillus Acidophilus (Bacid) 1 ea TID PO 08/24/19 21:00 08/30/19 11:09 Latanoprost (Xalatan 0.005% Op Soln) 1 drop QHS OU 08/24/19 21:00 08/29/19 20:09 Lidocaine (Lidoderm Patch) 1 patch QHS TD 08/26/19 21:00 08/29/19 20:10 Magnesium Hydroxide (Milk Of Magnesia) 30 ml DAILYPRN PRN PO CONSTIPATION 08/24/19 15:00 08/30/19 06:24 Magnesium Oxide (Mag-Ox) 400 mg Q2D PO 08/25/19 09:00 08/29/19 08:39 Metoprolol Tartrate (Lopressor) 6.25 mg Q6H PO 08/25/19 00:00 08/30/19 11:10 Miscellaneous (Unresolved Clarification Entry) SEE LABEL COMMENTS DAILY XX 08/24/19 09:00 08/25/19 00:19 DC Montelukast Sodium (Singulair) 10 mg DAILY PO 08/25/19 09:00 08/30/19 11:15 Morphine Sulfate (Ms Contin) 15 mg BID PO 08/24/19 21:00 08/29/19 15:07 DC 08/29/19 08:40 Non-Formulary Medication ( See Comment Field Below ) CHECK TO SEE IF THE PATIENT... DAILY@1200 XX 08/25/19 12:00 Non-Formulary Medication ( See Comment Field Below ) REMOVE LIDODERM PATCH DAILY@0900 XX 08/27/19 09:00 08/30/19 09:00 Ondansetron HCl (Zofran) 4 mg Q4HP PRN PO NAUSEA OR VOMITING 08/26/19 13:30 08/27/19 15:39 Oxycodone HCl (Roxicodone, Oxyir) 2.5 mg BID@1700,2100 PO 08/29/19 17:00 08/29/19 15:19 DC Oxycodone HCl (Roxicodone, Oxyir) 2.5 mg Q24HP PRN PO PAIN 08/29/19 15:15 08/29/19 15:19 DC Oxycodone HCl (Roxicodone, Oxyir) 2.5 mg Q6HP PRN PO PAIN 08/30/19 08:15 08/30/19 11:17 DC Oxycodone HCl (Roxicodone, Oxyir) 5 mg BID@0700,1200 PO 08/26/19 12:00 08/29/19 15:19 DC 08/29/19 06:31 Oxycodone HCl (Roxicodone, Oxyir) 5 mg BID@1700,2100 PO 08/26/19 17:00 08/29/19 15:07 DC 08/28/19 21:45 Oxycodone HCl (Roxicodone, Oxyir) 5 mg Q24HP PRN PO PAIN 08/26/19 09:45 08/29/19 15:07 DC Pantoprazole Sodium (Protonix) 40 mg DAILY PO 08/25/19 09:00 08/30/19 11:09 Senna (Senokot) 1 tab QHS PO 08/24/19 21:00 08/29/19 20:09 Sodium Thiosulfate 25 gm/ Sodium Chloride 200 ml @ 200 mls/hr HD IV 08/25/19 11:15 Sodium Thiosulfate (Sodium Thiosulfate) 30 gm HD IV 08/25/19 10:45 MARK SALGADO MD Aug 30, 2019 11:43
[2019-08-30] MEDS: [UNRECOGNIZED DRUG - REMARK] XX SCH (12:00)
[2019-08-30] MEDS ORDERED: HEPARIN 1,000 UNITS/ML 10ML VIAL (FOR RADIOLOGY& DIALYSIS ONLY) XX ONE (13:30)
[2019-08-30] MEDS: ONDANSETRON 4 MG TAB (S0181) PO PRN (15:59)
[2019-08-30 17:22] VITALS: BP 135/75
--- NOTE | 2019-08-30 18:35 | IPN ---
DATE: 08/30/2019 Mrs. Vargas is seen this morning on her bedside. She is sitting in the wheelchair in the gym. She just finished her physical therapy. She has been very weak and tired. Staff reports that she has been sleepy and her pain medications have been cut down. The patient denies any nausea, vomiting, dyspnea or chest pain. PHYSICAL EXAMINATION: Temperature 97.6 degrees Fahrenheit, heart rate 78 per minute and respiratory rate 18 per minute. Blood pressure 135/63 mmHg and oxygen saturation 100%. Head is atraumatic. She is using oxygen via nasal cannula. Neck is supple and jugular venous distention (JVD) not elevated. Right-sided Perma-Cath is present on upper chest without any signs of infection. Heart sounds are regular. Lungs sound clear to auscultation. Abdomen is obese, soft and nontender and bowel sounds are normal. Extremities without any cyanosis or clubbing. Right arm arteriovenous (AV) fistula is patent. She has an ELPIDIO bandage on her right wrist. Neurologically, she is at about her baseline. LABORATORY DATA: Today's laboratories show WBC count 11.8, hemoglobin 9.8 and hematocrit 32.4. Platelets 242. Sodium 131, potassium 4.8, CO2 22, BUN 77 and creatinine 7.57. Calcium 9.5 and phosphorus 5.6. Albumin is 2.6. PROBLEMS: 1. End-stage renal disease. The patient has been dialysis dependent and is dialyzed on Thursday, and Thursday schedule. She will be dialyzed this afternoon. 2. Hyponatremia. She has chronic mild hyponatremia which has been essentially unchanged. This is likely to improve with dialysis. 3. Anemia. Her anemia is stable and we will continue to manage it with Aranesp once a week during dialysis. 4. Calciphylaxis. The patient is being treated for wounds in her groin area related to calciphylaxis. She receives sodium thiosulfate 25 grams after each dialysis and we will continue with the same. She is also getting her wound care. 5. Generalized weakness and deconditioning. The patient remains very weak and very slow to move. She is doing her physical therapy.
[2019-08-30 20:00] VITALS: BP 142/65
[2019-08-30] MEDS: SENNA 8.6 MG TAB (SENOKOT) PO SCH (21:20)
[2019-08-30] MEDS: LIDOCAINE 5% (LIDODERM) PATCH TD SCH (21:22)
[2019-08-30] MEDS: LATANOPROST 0.005% OPHTH SOLN 2.5 ML OU SCH (21:23)
[2019-08-30] MEDS: SANTYL OINT 30GM TOP SCH (21:24)
[2019-08-31 06:00] VITALS: BP 125/60
[2019-08-31] MEDS: METOPROLOL TART 12.5 MG PER 1/2 TAB PO SCH ×4 (06:21→23:53)
[2019-08-31] MEDS: **NOTE PATIENT COMMENT** MISC XX SCH (06:33)
[2019-08-31] MEDS: FERROUS GLUCONATE 324 MG TAB PO SCH (08:22)
[2019-08-31] MEDS: DULoxetine 30 MG CAP (CYMBALTA) PO SCH (08:22)
[2019-08-31] MEDS: MONTELUKAST 10 MG TAB PO SCH (08:22)
[2019-08-31] MEDS: APIXABAN 2.5 MG TAB (ELIQUIS) PO SCH ×2 (08:22→21:28)
[2019-08-31] MEDS: HumaLOG INSULIN (NovoLOG) PER UNIT SC SCH ×4 (08:22→21:00)
[2019-08-31] MEDS: DOCUSATE SODIUM 100 MG CAP PO SCH ×2 (08:22→21:28)
[2019-08-31] MEDS: MAGNESIUM OXIDE 400 MG TAB (MAG-OX) PO SCH (08:23)
[2019-08-31] MEDS: PANTOPRAZOLE 40MG TAB (PROTONIX) PO SCH (08:23)
[2019-08-31] MEDS: ACETAMINOPHEN 500 MG TAB PO SCH ×3 (08:23→21:29)
[2019-08-31] MEDS: ATORVASTATIN 20 MG TAB PO SCH (08:23)
[2019-08-31] MEDS: LACTOBACILLUS ACIDOPHILUS CAP (BACID) PO SCH ×3 (08:23→21:28)
[2019-08-31] MEDS: allopurinoL 100 MG TAB PO SCH (08:23)
[2019-08-31] MEDS: SANTYL OINT 30GM TOP SCH (08:24)
[2019-08-31] MEDS: FLUTICASONE PROP 0.05% NASAL SPRAY 16 GM (FLONASE) NARES SCH ×2 (08:24→21:29)
[2019-08-31] MEDS ORDERED: DULoxetine 30 MG CAP (CYMBALTA) PO SCH (09:00)
--- NOTE | 2019-08-31 09:54 | IPNPDOC ---
PM&R Progress Note DATE OF SERVICE: Aug 31, 2019 Spice Cleaner Progress Note Subjective: Patient reporting she is still having pain, but is moving better in therapy. She would like to go up on the [place]. REVIEW OF SYSTEMS: The following is a completed review of systems and has been reviewed. Review of systems otherwise unremarkable. PAIN: Patient self reports wound pain EYES: No recent vision changes EARS, NOSE, & THROAT: No throat pain, or dysphagia, or rhinorrhea CARDIOVASCULAR: Denies chest pain or palpitations PULMONARY: Denies shortness of breath at rest GASTROINTESTINAL: Denies constipation/diarrhea GENITOURINARY: denies dysuria MUSCULOSKELETAL: generalized weakness NEUROLOGICAL:no focal tremor/seizure, +peripheral polyneuropathy HEMATOLOGICAL: +anemia SKIN: +abdominal fold ulcers PSYCHIATRIC: Unremarkable All other review of systems found to be negative. PHYSICAL EXAMINATION: VITAL SIGNS: Please see below. GENERAL: Pleasant and cooperative. No acute distress. obese HEENT: PERRL. Extraocular movements intact. Clear conjunctiva CARDIOVASCULAR: Regular rate and rhythm. No murmurs, rubs, or gallops LUNGS: Clear to auscultation bilaterally. No wheezes. No rhonchi ABDOMEN: Soft, nontender, nondistended. Positive bowel sounds. Normal active bowel sounds NEUROLOGICAL: Alert and oriented times three. Cranial nerves II through XII grossly intact. Sensation diminished to light touch in stocking pattern EXTREMITIES: 5\5 strength left upper extremities, 4/5 RUE (due to recent nerve block for AVF) 4\5 strength right lower extremity. 4/5 strength in left lower extremity. (-) clonus (-) edema right wrist with TTP 1st MCP joint and scaphoid, no local swelling/warmth SKIN: sacrum without ulcers, bilateral abdominal fold unstageable ulcers, foul smelling with slough, periwounds dry ASSESSMENT:69-year-old F with past medical history of CHF, Afib, COPD, DM, ESRD on dialysis who presents status post CHF decompensation with peripheral polyneuropathy PLAN: 1. Rehab: PT advance gait training, using energy conservation techniques, OT advance ADLs- ambualting with RW -RPE 4-5 (pacemaker in place so cannot advise on max HR using Karvonen formula), 02 tubing management 2. Neuro: peripheral polyneuropathy with gait impairment due to longstanding DM 3. Cardiac: -hx diastolic CHF, home diuretics currently on hold due to recent p ericardiocentesis and dialysis, monitor for soft BPs and c/u 1500cc fluid restriction -hx Afib patient with PM/AICD, c/u low dose beta donna, switched from Coumadin to Eliquis 2.5 BID, medicine consulted to assist in management -HLD- statin -f/u with Dr. Euceda on d/c 4. Resp: COPD with hypoventiliation syndrome, c/u breathing treatments, Singulair, and supplemental 02 goal 88-92% -DEEDEE on CPAP 5. endo: pmh DM with peripheral polyneuropathy c/u ISS 6. Renal: ESRD on HED Thu//Thu, renal consulted, patient receiving sodium thiosulfate in HD -fluid management per Dr. Kinney, recs appreciated 7.Heme: anemia of chronic disease: c/u iron, Aranesp per renal 8. GI ppx: protonix 9. DVT ppx: on Eliquis, TEDs 10. Skin: abdominal skin fold calciphilaxis, discussed with Dr. Hickman, ok to use Santyl on areas of slough areas, to be changed daily 11. Pain: avoid opioids as causes AMS and auditory hallucinations -c/u Cymbalta increased to 60mg daily and tylenol -right wrist pain, likely inflammatory after local trauma- acewrapped, d/c'd lidoderm patch as can cause MRI SPECIALIST side effects as well 12. Dispo: TBD--patient and questioning need for mammogram after recent imaging showed mass? I am not seeing this in-house recent records, will discuss with PMD, Marisel Maradiaga prior to discharge for follow-up, patient requesting to stay in rehab until 09-06-19 as her will be out of town for her daughter's throat surgery until then Allergies Coded Allergies: TAPE (Verified Allergy, Intermediate, reddness swelling, 04/26/19) tetanus immune globulin (Verified Allergy, Intermediate, SWELLING, ) Contrast Media (Verified Adverse Reaction, Intermediate, kidney failure, 04/26/19) Vital Signs Vital Signs Date Time Temp Pulse Resp B/P (MAP) Pulse Ox O2 Delivery O2 Flow Rate FiO2 08/31/19 06:21 73 125/63 08/31/19 06:00 97.5 19 97 Nasal Cannula 2.0 Laboratory Data Labs 24H Laboratory Tests 2 08/30/19 11:49: Bedside Glucose (Misc Panel) 145H 08/30/19 17:34: Bedside Glucose (Misc Panel) 135H 08/30/19 20:56: Bedside Glucose (Misc Panel) 132H 08/31/19 06:38: Bedside Glucose (Misc Panel) 107 Current Medications Current Medications Current Medications Medications (Trade) Dose Ordered Sig/Dion Route PRN Reason Start Time Stop Time Status Last Admin Dose Admin Acetaminophen (Tylenol Tab) 650 mg Q4HP PRN PO fever or pain 1-4 08/24/19 15:00 08/27/19 18:57 Acetaminophen (Tylenol Tab) 1,000 mg Q6HP PRN PO PAIN / FEVER 08/24/19 15:00 08/26/19 09:51 DC 08/25/19 16:35 Acetaminophen (Tylenol Tab) 1,000 mg TID PO 08/26/19 12:00 08/31/19 08:23 Acetaminophen/ Hydrocodone Bitart ([place], Anexsia 5/325) 1 tab Q4HP PRN PO MILD/MODERATE PAIN (PS 1-7) 08/24/19 15:00 08/26/19 09:51 DC 08/26/19 05:23 Albuterol Sulfate (Proventil, Ventolin Hfa) 2 puff Q2HP PRN INH SHORTNESS OF BREATH 08/24/19 15:00 Albuterol/ Ipratropium (Duoneb (Ipr 0.5mg/Alb 2.5mg)) 3 ml Q6HP PRN NEB SOB/WHEEZING 08/24/19 15:00 Allopurinol (Zyloprim) 100 mg DAILY PO 08/25/19 09:00 08/31/19 08:23 Alteplase, Recombinant (Cathflo Activase) 4 mg ASDIRECTED PRN IV SEE LABEL COMMENTS 08/29/19 09:30 Apixaban (Eliquis) 2.5 mg BID PO 08/24/19 21:00 08/31/19 08:22 Atorvastatin Calcium (Lipitor) 40 mg DAILY PO 08/25/19 09:00 08/31/19 08:23 Cetirizine HCl (ZyrTEC) 10 mg DAILY PO 08/25/19 09:00 08/29/19 15:07 DC 08/29/19 08:39 Collagenase (Santyl) APPLY TO BILATERAL HIP ... DAILY TOP 08/26/19 09:00 08/31/19 08:24 Dextrose (Dextrose 50%) 25 ml ASDIRECTED PRN IV SEE LABEL COMMENTS 08/24/19 16:45 Docusate Sodium (Colace) 100 mg BID PO 08/24/19 21:00 08/31/19 08:22 Duloxetine HCl (Cymbalta) 30 mg DAILY PO 08/30/19 09:00 08/31/19 08:22 Ferrous Gluconate (Fergon) 324 mg Q2D PO 08/25/19 09:00 08/31/19 08:22 Fluticasone Propionate (Flonase 0.05% Nasal [place]) 1 spray BID NARES 08/24/19 21:00 08/31/19 08:24 Glucagon (Glucagon) 1 mg ASDIRECTED PRN SC SEE LABEL COMMENTS 08/24/19 16:45 Glucose (Glucose) 16 GM ASDIRECTED PRN PO SEE LABEL COMMENTS 08/24/19 16:45 Home Med (Med Rec Complete!) ASDIRECTED XX 08/24/19 21:15 08/24/19 21:16 DC Insulin Human Lispro (HumaLOG INSULIN) SEE PROTOCOL TABLE AC SC 08/24/19 17:30 08/31/19 08:22 Insulin Human Lispro (HumaLOG INSULIN) SEE PROTOCOL TABLE QHS SC 08/24/19 21:00 Lactobacillus Acidophilus (Bacid) 1 ea TID PO 08/24/19 21:00 08/31/19 08:23 Latanoprost (Xalatan 0.005% Op Soln) 1 drop QHS OU 08/24/19 21:00 08/30/19 21:23 Lidocaine (Lidoderm Patch) 1 patch QHS TD 08/26/19 21:00 08/30/19 21:22 Magnesium Hydroxide (Milk Of Magnesia) 30 ml DAILYPRN PRN PO CONSTIPATION 08/24/19 15:00 08/30/19 06:24 Magnesium Oxide (Mag-Ox) 400 mg Q2D PO 08/25/19 09:00 08/31/19 08:23 Metoprolol Tartrate (Lopressor) 6.25 mg Q6H PO 08/25/19 00:00 08/31/19 06:21 Miscellaneous (Unresolved Clarification Entry) SEE LABEL COMMENTS DAILY XX 08/24/19 09:00 08/25/19 00:19 DC Montelukast Sodium (Singulair) 10 mg DAILY PO 08/25/19 09:00 08/31/19 08:22 Morphine Sulfate (Ms Contin) 15 mg BID PO 08/24/19 21:00 08/29/19 15:07 DC 08/29/19 08:40 Non-Formulary Medication ( See Comment Field Below ) CHECK TO SEE IF THE PATIENT... DAILY@1200 XX 08/25/19 12:00 Non-Formulary Medication ( See Comment Field Below ) REMOVE LIDODERM PATCH DAILY@0900 XX 08/27/19 09:00 08/31/19 06:33 Ondansetron HCl (Zofran) 4 mg Q4HP PRN PO NAUSEA OR VOMITING 08/26/19 13:30 08/30/19 15:59 Oxycodone HCl (Roxicodone, Oxyir) 2.5 mg BID@1700,2100 PO 08/29/19 17:00 08/29/19 15:19 DC Oxycodone HCl (Roxicodone, Oxyir) 2.5 mg Q24HP PRN PO PAIN 08/29/19 15:15 08/29/19 15:19 DC Oxycodone HCl (Roxicodone, Oxyir) 2.5 mg Q6HP PRN PO PAIN 08/30/19 08:15 08/30/19 11:17 DC Oxycodone HCl (Roxicodone, Oxyir) 5 mg BID@0700,1200 PO 08/26/19 12:00 08/29/19 15:19 DC 08/29/19 06:31 Oxycodone HCl (Roxicodone, Oxyir) 5 mg BID@1700,2100 PO 08/26/19 17:00 08/29/19 15:07 DC 08/28/19 21:45 Oxycodone HCl (Roxicodone, Oxyir) 5 mg Q24HP PRN PO PAIN 08/26/19 09:45 08/29/19 15:07 DC Pantoprazole Sodium (Protonix) 40 mg DAILY PO 08/25/19 09:00 08/31/19 08:23 Senna (Senokot) 1 tab QHS PO 08/24/19 21:00 08/30/19 21:20 Sodium Thiosulfate 25 gm/ Sodium Chloride 200 ml @ 200 mls/hr HD IV 08/25/19 11:15 Sodium Thiosulfate (Sodium Thiosulfate) 30 gm HD IV 08/25/19 10:45 MARK SALGADO MD Aug 31, 2019 09:54
[2019-08-31] MEDS: [UNRECOGNIZED DRUG - REMARK] XX SCH (12:00)
[2019-08-31 14:00] VITALS: BP 120/63
[2019-08-31 14:09] LABS: BASO # 0.1 10^3/uL (0.0-0.2); BASO % 0.6 % (0.0-1.0); EOS # 0.2 10^3/uL (0.0-0.5); EOS % 1.6 % (0.0-3.0); HEMATOCRIT 32.8 % (36.0-47.0); HEMOGLOBIN 10.1 g/dl (12.0-15.5); LYMPH # 1.2 10^3/uL (1.5-5.0); LYMPH % 9.1 % (24.0-44.0); MEAN CORPUSCULAR HEMOGLOBIN 29.3 pg (27.0-33.0); MEAN CORPUSCULAR HGB CONC 30.8 g/dl (32.0-36.5); MEAN CORPUSCULAR VOLUME 95.1 fl (80.0-96.0); MONO # 1.5 10^3/uL (0.0-0.8); MONO % 11.7 % (0.0-5.0); NEUTROPHILS # 9.7 10^3/uL (1.5-8.5); NEUTROPHILS % 76.1 % (36.0-66.0); PLATELET COUNT, AUTOMATED 236 10^3/uL (150-450); RED BLOOD COUNT 3.45 10^6/uL (4.00-5.40); WHITE BLOOD COUNT 12.7 10^3/uL (4.0-10.0)
[2019-08-31 20:00] VITALS: BP 130/75
[2019-08-31] MEDS: SENNA 8.6 MG TAB (SENOKOT) PO SCH (21:28)
[2019-08-31] MEDS: LIDOCAINE 5% (LIDODERM) PATCH TD SCH (21:29)
[2019-08-31] MEDS: LATANOPROST 0.005% OPHTH SOLN 2.5 ML OU SCH (21:29)
[2019-09-01] MEDS: METOPROLOL TART 12.5 MG PER 1/2 TAB PO SCH ×3 (05:43→18:20)
[2019-09-01 07:10] LABS: BASO # 0.1 10^3/uL (0.0-0.2); BASO % 0.6 % (0.0-1.0); EOS # 0.3 10^3/uL (0.0-0.5); EOS % 2.6 % (0.0-3.0); HEMATOCRIT 32.2 % (36.0-47.0); HEMOGLOBIN 10.1 g/dl (12.0-15.5); LYMPH # 1.2 10^3/uL (1.5-5.0); LYMPH % 9.7 % (24.0-44.0); MEAN CORPUSCULAR HEMOGLOBIN 29.7 pg (27.0-33.0); MEAN CORPUSCULAR HGB CONC 31.4 g/dl (32.0-36.5); MEAN CORPUSCULAR VOLUME 94.7 fl (80.0-96.0); MONO # 1.3 10^3/uL (0.0-0.8); MONO % 10.7 % (0.0-5.0); NEUTROPHILS % 75.6 % (36.0-66.0); PLATELET COUNT, AUTOMATED 215 10^3/uL (150-450); WHITE BLOOD COUNT 11.9 10^3/uL (4.0-10.0)
[2019-09-01] MEDS: HumaLOG INSULIN (NovoLOG) PER UNIT SC SCH ×4 (07:30→21:00)
[2019-09-01] MEDS: **NOTE PATIENT COMMENT** MISC XX SCH (09:00)
[2019-09-01] MEDS ORDERED: DULoxetine 30 MG CAP (CYMBALTA) PO SCH (09:00)
[2019-09-01] MEDS: APIXABAN 2.5 MG TAB (ELIQUIS) PO SCH ×2 (10:05→21:39)
[2019-09-01] MEDS: ATORVASTATIN 20 MG TAB PO SCH (10:05)
[2019-09-01] MEDS: ACETAMINOPHEN 500 MG TAB PO SCH ×3 (10:05→21:40)
[2019-09-01] MEDS: allopurinoL 100 MG TAB PO SCH (10:05)
[2019-09-01] MEDS: DOCUSATE SODIUM 100 MG CAP PO SCH ×2 (10:05→21:39)
[2019-09-01] MEDS: (RENVELA) SEVELAMER **CARBONate** 800 MG TAB PO SCH ×3 (10:06→18:20)
[2019-09-01] MEDS: PANTOPRAZOLE 40MG TAB (PROTONIX) PO SCH (10:06)
[2019-09-01] MEDS: LACTOBACILLUS ACIDOPHILUS CAP (BACID) PO SCH ×3 (10:06→21:39)
[2019-09-01] MEDS: MONTELUKAST 10 MG TAB PO SCH (10:06)
[2019-09-01] MEDS: FLUTICASONE PROP 0.05% NASAL SPRAY 16 GM (FLONASE) NARES SCH ×2 (10:06→21:41)
[2019-09-01] MEDS: DULoxetine 30 MG CAP (CYMBALTA) PO SCH (10:06)
[2019-09-01] MEDS: SANTYL OINT 30GM TOP SCH (10:07)
--- NOTE | 2019-09-01 10:08 | IPNPDOC ---
PM&R Progress Note DATE OF SERVICE: Sep 01, 2019 [employer] Progress Note Subjective: Patient reporting she feels less pain today and is feeling stronger. REVIEW OF SYSTEMS: The following is a completed review of systems and has been reviewed. Review of systems otherwise unremarkable. PAIN: Patient self reports wound pain EYES: No recent vision changes EARS, NOSE, & THROAT: No throat pain, or dysphagia, or rhinorrhea CARDIOVASCULAR: Denies chest pain or palpitations PULMONARY: Denies shortness of breath at rest GASTROINTESTINAL: Denies constipation/diarrhea GENITOURINARY: denies dysuria MUSCULOSKELETAL: generalized weakness NEUROLOGICAL:no focal tremor/seizure, +peripheral polyneuropathy HEMATOLOGICAL: +anemia SKIN: +abdominal fold ulcers PSYCHIATRIC: Unremarkable All other review of systems found to be negative. PHYSICAL EXAMINATION: VITAL SIGNS: Please see below. GENERAL: Pleasant and cooperative. No acute distress. obese HEENT: PERRL. Extraocular movements intact. Clear conjunctiva CARDIOVASCULAR: Regular rate and rhythm. No murmurs, rubs, or gallops LUNGS: Clear to auscultation bilaterally. No wheezes. No rhonchi ABDOMEN: Soft, nontender, nondistended. Positive bowel sounds. Normal active bowel sounds NEUROLOGICAL: Alert and oriented times three. Cranial nerves II through XII grossly intact. Sensation diminished to light touch in stocking pattern EXTREMITIES: 5\5 strength left upper extremities, 4/5 RUE (due to recent nerve block for AVF) 4\5 strength right lower extremity. 4/5 strength in left lower extremity. (-) clonus (-) edema right wrist with TTP 1st MCP joint and scaphoid, no local swelling/warmth SKIN: sacrum without ulcers, bilateral abdominal fold unstageable ulcers, foul smelling with slough, periwounds dry ASSESSMENT:69-year-old F with past medical history of CHF, Afib, COPD, DM, ESRD on dialysis who presents status post CHF decompensation with peripheral polyneuropathy PLAN: 1. Rehab: PT advance gait training, using energy conservation techniques, OT advance ADLs- ambualting with RW -RPE 4-5 (pacemaker in place so cannot advise on max HR using Karvonen formula), 02 tubing management 2. Neuro: peripheral polyneuropathy with gait impairment due to longstanding DM 3. Cardiac: -hx diastolic CHF, home diuretics currently on hold due to recent pericardiocentesis and dialysis, monitor for soft BPs and c/u 1500cc fluid restriction -hx Afib patient with PM/AICD, c/u low dose beta donna, switched from Coumadin to Eliquis 2.5 BID, medicine consulted to assist in management -HLD- statin -f/u with Dr. Euceda on d/c 4. Resp: COPD with hypoventiliation syndrome, c/u breathing treatments, Singulair, and supplemental 02 goal 88-92% -DEEDEE on CPAP 5. endo: pmh DM with peripheral polyneuropathy c/u ISS 6. Renal: ESRD on HED Thu//Thu, renal consulted, patient receiving sodium thiosulfate in HD -fluid management per Dr. Kinney, recs appreciated 7.Heme: anemia of chronic disease: c/u iron, Aranesp per renal 8. GI ppx: protonix 9. DVT ppx: on Eliquis, TEDs 10. Skin: abdominal skin fold calciphilaxis, discussed with Dr. Hickman, ok to use Santyl on areas of slough areas, to be changed daily 11. Pain: avoid opioids as causes AMS and auditory hallucinations -c/u Cymbalta increased to 60mg daily and tylenol -right wrist pain, likely inflammatory after local trauma- minh-wrapped, d/c'd lidoderm patch as can cause [employer] side effects as well 12. Dispo: TBD--patient and questioning need for mammogram after recent imaging showed mass? I am not seeing this in-house recent records, will discuss with PMD, Marisel Maradiaga prior to discharge for follow-up, patient requesting to stay in rehab until 09-06-19 as her will be out of town for her daughter's throat surgery until then Allergies Coded Allergies: TAPE (Verified Allergy, Intermediate, reddness swelling, 04/26/19) tetanus immune globulin (Verified Allergy, Intermediate, SWELLING, 04/26/19) Contrast Media (Verified Adverse Reaction, Intermediate, kidney failure, 04/26/19) Vital Signs Vital Signs Date Time Temp Pulse Resp B/P (MAP) Pulse Ox O2 Delivery O2 Flow Rate FiO2 09/01/19 05:43 72 140/63 08/31/19 21:30 2.0 08/31/19 20:00 97.5 18 99 Nasal Cannula Laboratory Data CBC/BMP Laboratory Tests 08/31/19 13:37 09/01/19 06:59 Labs 24H Laboratory Tests 2 08/31/19 11:27: Bedside Glucose (Misc Panel) 124H 08/31/19 13:37: Immature Granulocyte % (Auto) 0.9, Neutrophils (%) (Auto) 76.1H, Lymphocytes (%) (Auto) 9.1L, Monocytes (%) (Auto) 11.7H, Eosinophils (%) (Auto) 1.6, Basophils (%) (Auto) 0.6, Neutrophils # (Auto) 9.7H, Lymphocytes # (Auto) 1.2L, Monocytes # (Auto) 1.5H, Eosinophils # (Auto) 0.2, Basophils # (Auto) 0.1, Nucleated Red Blood Cells % (auto) 0.0 08/31/19 16:30: Bedside Glucose (Misc Panel) 101 08/31/19 20:02: Bedside Glucose (Misc Panel) 86 09/01/19 06:59: Immature Granulocyte % (Auto) 0.8, Neutrophils (%) (Auto) 75.6H, Lymphocytes (%) (Auto) 9.7L, Monocytes (%) (Auto) 10.7H, Eosinophils (%) (Auto) 2.6, Basophils (%) (Auto) 0.6, Neutrophils # (Auto) 9.0H, Lymphocytes # (Auto) 1.2L, Monocytes # (Auto) 1.3H, Eosinophils # (Auto) 0.3, Basophils # (Auto) 0.1, Nucleated Red Blood Cells % (auto) 0.0 09/01/19 07:29: Bedside Glucose (Misc Panel) 96 Current Medications Current Medications Current Medications Medications (Trade) Dose Ordered Sig/Dion Route PRN Reason Start Time Stop Time Status Last Admin Dose Admin Acetaminophen (Tylenol Tab) 650 mg Q4HP PRN PO fever or pain 1-4 08/24/19 15:00 08/27/19 18:57 Acetaminophen (Tylenol Tab) 1,000 mg Q6HP PRN PO PAIN / FEVER 08/24/19 15:00 08/26/19 09:51 DC 08/25/19 16:35 Acetaminophen (Tylenol Tab) 1,000 mg TID PO 08/26/19 12:00 08/31/19 21:29 Acetaminophen/ Hydrocodone Bitart ([place], Anexsia 5/325) 1 tab Q4HP PRN PO MILD/MODERATE PAIN (PS 1-7) 08/24/19 15:00 08/26/19 09:51 DC 08/26/19 05:23 Albuterol Sulfate (Proventil, Ventolin Hfa) 2 puff Q2HP PRN INH SHORTNESS OF BREATH 08/24/19 15:00 Albuterol/ Ipratropium (Duoneb (Ipr 0.5mg/Alb 2.5mg)) 3 ml Q6HP PRN NEB SOB/WHEEZING 08/24/19 15:00 Allopurinol (Zyloprim) 100 mg DAILY PO 08/25/19 09:00 08/31/19 08:23 Alteplase, Recombinant (Cathflo Activase) 4 mg ASDIRECTED PRN IV SEE LABEL COMMENTS 08/29/19 09:30 Apixaban (Eliquis) 2.5 mg BID PO 08/24/19 21:00 08/31/19 21:28 Atorvastatin Calcium (Lipitor) 40 mg DAILY PO 08/25/19 09:00 08/31/19 08:23 Cetirizine HCl (ZyrTEC) 10 mg DAILY PO 08/25/19 09:00 08/29/19 15:07 DC 08/29/19 08:39 Collagenase (Santyl) APPLY TO BILATERAL HIP ... DAILY TOP 08/26/19 09:00 08/31/19 08:24 Dextrose (Dextrose 50%) 25 ml ASDIRECTED PRN IV SEE LABEL COMMENTS 08/24/19 16:45 Docusate Sodium (Colace) 100 mg BID PO 08/24/19 21:00 08/31/19 21:28 Duloxetine HCl (Cymbalta) 30 mg DAILY PO 08/30/19 09:00 08/31/19 15:33 DC 08/31/19 08:22 Duloxetine HCl (Cymbalta) 30 mg DAILY PO 08/31/19 09:00 08/31/19 18:04 DC Duloxetine HCl (Cymbalta) 30 mg DAILY PO 09/01/19 09:00 Duloxetine HCl (Cymbalta) 60 mg DAILY PO 09/01/19 09:00 08/31/19 17:47 DC Ferrous Gluconate (Fergon) 324 mg Q2D PO 08/25/19 09:00 08/31/19 08:22 Fluticasone Propionate (Flonase 0.05% Nasal [place]) 1 spray BID NARES 08/24/19 21:00 08/31/19 21:29 Glucagon (Glucagon) 1 mg ASDIRECTED PRN SC SEE LABEL COMMENTS 08/24/19 16:45 Glucose (Glucose) 16 GM ASDIRECTED PRN PO SEE LABEL COMMENTS 08/24/19 16:45 Home Med (Med Rec Complete!) ASDIRECTED XX 08/24/19 21:15 08/24/19 21:16 DC Insulin Human Lispro (HumaLOG INSULIN) SEE PROTOCOL TABLE AC SC 08/24/19 17:30 08/31/19 17:29 Insulin Human Lispro (HumaLOG INSULIN) SEE PROTOCOL TABLE QHS SC 08/24/19 21:00 Lactobacillus Acidophilus (Bacid) 1 ea TID PO 08/24/19 21:00 08/31/19 21:28 Latanoprost (Xalatan 0.005% Op Soln) 1 drop QHS OU 08/24/19 21:00 08/31/19 21:29 Lidocaine (Lidoderm Patch) 1 patch QHS TD 08/26/19 21:00 08/31/19 21:29 Magnesium Hydroxide (Milk Of Magnesia) 30 ml DAILYPRN PRN PO CONSTIPATION 08/24/19 15:00 08/30/19 06:24 Magnesium Oxide (Mag-Ox) 400 mg Q2D PO 08/25/19 09:00 08/31/19 08:23 Metoprolol Tartrate (Lopressor) 6.25 mg Q6H PO 08/25/19 00:00 09/01/19 05:43 Miscellaneous (Unresolved Clarification Entry) SEE LABEL COMMENTS DAILY XX 08/24/19 09:00 08/25/19 00:19 DC Montelukast Sodium (Singulair) 10 mg DAILY PO 08/25/19 09:00 08/31/19 08:22 Morphine Sulfate (Ms Contin) 15 mg BID PO 08/24/19 21:00 08/29/19 15:07 DC 08/29/19 08:40 Non-Formulary Medication ( See Comment Field Below ) CHECK TO SEE IF THE PATIENT... DAILY@1200 XX 08/25/19 12:00 Non-Formulary Medication ( See Comment Field Below ) REMOVE LIDODERM PATCH DAILY@0900 XX 08/27/19 09:00 08/31/19 06:33 Ondansetron HCl (Zofran) 4 mg Q4HP PRN PO NAUSEA OR VOMITING 08/26/19 13:30 08/30/19 15:59 Oxycodone HCl (Roxicodone, Oxyir) 2.5 mg BID@1700,2100 PO 08/29/19 17:00 08/29/19 15:19 DC Oxycodone HCl (Roxicodone, Oxyir) 2.5 mg Q24HP PRN PO PAIN 08/29/19 15:15 08/29/19 15:19 DC Oxycodone HCl (Roxicodone, Oxyir) 2.5 mg Q6HP PRN PO PAIN 08/30/19 08:15 08/30/19 11:17 DC Oxycodone HCl (Roxicodone, Oxyir) 5 mg BID@0700,1200 PO 08/26/19 12:00 08/29/19 15:19 DC 08/29/19 06:31 Oxycodone HCl (Roxicodone, Oxyir) 5 mg BID@1700,2100 PO 08/26/19 17:00 08/29/19 15:07 DC 08/28/19 21:45 Oxycodone HCl (Roxicodone, Oxyir) 5 mg Q24HP PRN PO PAIN 08/26/19 09:45 08/29/19 15:07 DC Pantoprazole Sodium (Protonix) 40 mg DAILY PO 08/25/19 09:00 08/31/19 08:23 Senna (Senokot) 1 tab QHS PO 08/24/19 21:00 08/31/19 21:28 Sevelamer Carbonate (Renvela) 800 mg WM PO 09/01/19 08:00 Sodium Thiosulfate 25 gm/ Sodium Chloride 200 ml @ 200 mls/hr HD IV 08/25/19 11:15 Sodium Thiosulfate (Sodium Thiosulfate) 30 gm HD IV 08/25/19 10:45 MARK SALGADO MD Sep 01, 2019 10:08
[2019-09-01] MEDS: [UNRECOGNIZED DRUG - REMARK] XX SCH (12:00)
[2019-09-01] MEDS: ACETAMINOPHEN TAB 650MG DOSE (2X325MG) PO PRN (12:46)
[2019-09-01 12:47] VITALS: BP 98/54
[2019-09-01] MEDS ORDERED: HEPARIN 1,000 UNITS/ML 10ML VIAL (FOR RADIOLOGY& DIALYSIS ONLY) XX ONE (14:00)
[2019-09-01] MEDS: ONDANSETRON 4 MG TAB (S0181) PO PRN (16:13)
--- NOTE | 2019-09-01 19:10 | IPN ---
DATE: 08/31/2019 SUBJECTIVE: The patient was seen and examined at the bedside today morning. She was sitting up in the sofa. She was dialyzed yesterday. She tolerated the hemodialysis procedure well. She reports pain in the abdominal ulcer sites; otherwise, she denies any active complaints. OBJECTIVE: Vital signs: Temperature is 97.2 degrees Fahrenheit, blood pressure 120/63, pulse is 70, respiratory of 18, saturating 100% on nasal cannula at 2 liters. Intake and output: There is no urine output recorded. Ultrafiltration with hemodialysis was 2 liters yesterday. Weight in the bed scale is 93.4. PHYSICAL EXAMINATION: GENERAL: The patient is awake, alert, oriented times three, sitting up in the sofa in no apparent distress, morbidly obese. HEAD AND NECK: Extraocular muscles intact. Pupils equally round and reactive to light. Mucous membranes are moist. Neck is supple. She has no jugular venous distention (JVD). Tunneled hemodialysis catheter was noted. CARDIOVASCULAR: S1, S2, regular rate. No edema of the bilateral lower extremities. ABDOMEN: Soft, positive bowel sounds. Lower abdominal ulcers were noted. MUSCULOSKELETAL: No clubbing or cyanosis. Pulses are 2+. CENTRAL NERVOUS SYSTEM: No focal deficit. Power is 5/5 in all extremities. AV ACCESS: Patient has a right upper arm arteriovenous (AV) fistula with thrill and bruit and is not ready for use. LABORATORY REVIEW: CBC showed WBC of 12.7, hemoglobin 10.1, platelets are 236. BMP showed sodium 131, potassium 4.8, chloride 95, bicarbonate 22, BUN 77, creatinine is 7.5, phosphorus 5.6, albumin 2.6. CURRENT INPATIENT MEDICATIONS: The patient's medications were all reviewed by myself. She continues to be on intravenous (IV) sodium thiosulfate. Cymbalta dose has been increased to 60 mg by mouth daily. No other change in the medications today as compared with yesterday. ASSESSMENT AND PLAN: 1. End-stage renal disease. The patient is getting dialysis Thursday, , Thursday. She will be dialyzed tomorrow morning. Volume status is optimized. 2. Calciphylaxis. Continue sodium thiosulfate with dialysis sessions. Coumadin has been changed to Eliquis. She is not on any calcium-based binders or vitamin D analogues. 3. Depression. The patient has end-stage renal disease. She should not be on a higher dose of Cymbalta. I have decreased the Cymbalta dose back to 30 mg by mouth daily. 4. Anemia and end-stage renal disease. Hemoglobin is 10.1, which is optimal. The patient is currently not on erythropoiesis-stimulating agent (DARSHANA). 5. Chronic gout secondary to end-stage renal disease. Continue current dose of allopurinol 100 mg outpatient daily.
[2019-09-01 19:33] LABS: ALBUMIN 2.7 GM/DL (3.2-5.2); CALCIUM LEVEL 8.7 MG/DL (8.8-10.2); CREATININE FOR GFR 2.57 MG/DL (0.55-1.30); GLOMERULAR FILTRATION RATE 19.7 (>45); PHOSPHORUS LEVEL 2.5 MG/DL (2.5-4.9); POTASSIUM SERUM 3.4 MEQ/L (3.5-5.1)
[2019-09-01 20:00] VITALS: BP 145/65
[2019-09-01] MEDS: SENNA 8.6 MG TAB (SENOKOT) PO SCH (21:39)
[2019-09-01] MEDS: LIDOCAINE 5% (LIDODERM) PATCH TD SCH (21:39)
[2019-09-01] MEDS: LATANOPROST 0.005% OPHTH SOLN 2.5 ML OU SCH (21:41)
[2019-09-02] MEDS: METOPROLOL TART 12.5 MG PER 1/2 TAB PO SCH ×4 (00:24→17:23)
[2019-09-02 04:46] VITALS: BP 138/65
[2019-09-02] MEDS: HumaLOG INSULIN (NovoLOG) PER UNIT SC SCH ×4 (07:15→20:03)
[2019-09-02] MEDS: MONTELUKAST 10 MG TAB PO SCH (08:00)
[2019-09-02] MEDS: DOCUSATE SODIUM 100 MG CAP PO SCH ×2 (08:00→20:01)
[2019-09-02] MEDS: LACTOBACILLUS ACIDOPHILUS CAP (BACID) PO SCH ×3 (08:00→20:01)
[2019-09-02] MEDS: DULoxetine 30 MG CAP (CYMBALTA) PO SCH (08:00)
[2019-09-02] MEDS: (RENVELA) SEVELAMER **CARBONate** 800 MG TAB PO SCH ×3 (08:00→17:23)
[2019-09-02] MEDS: ACETAMINOPHEN 500 MG TAB PO SCH ×3 (08:00→20:01)
[2019-09-02] MEDS: allopurinoL 100 MG TAB PO SCH (08:01)
[2019-09-02] MEDS: ATORVASTATIN 20 MG TAB PO SCH (08:01)
[2019-09-02] MEDS: FLUTICASONE PROP 0.05% NASAL SPRAY 16 GM (FLONASE) NARES SCH ×2 (08:01→20:02)
[2019-09-02] MEDS: MAGNESIUM OXIDE 400 MG TAB (MAG-OX) PO SCH ×2 (08:01→09:00)
[2019-09-02] MEDS: PANTOPRAZOLE 40MG TAB (PROTONIX) PO SCH (08:01)
[2019-09-02] MEDS: FERROUS GLUCONATE 324 MG TAB PO SCH (08:01)
[2019-09-02] MEDS: APIXABAN 2.5 MG TAB (ELIQUIS) PO SCH ×2 (08:01→20:01)
[2019-09-02] MEDS: **NOTE PATIENT COMMENT** MISC XX SCH (08:02)
--- NOTE | 2019-09-02 09:46 | IPNPDOC ---
PM&R Progress Note DATE OF SERVICE: Sep 02, 2019 [employer] Progress Note Subjective: Patient seen getting her ECHO today, states she is feeling fine today. REVIEW OF SYSTEMS: The following is a completed review of systems and has been reviewed. Review of systems otherwise unremarkable. PAIN: Patient self reports wound pain EYES: No recent vision changes EARS, NOSE, & THROAT: No throat pain, or dysphagia, or rhinorrhea CARDIOVASCULAR: Denies chest pain or palpitations PULMONARY: Denies shortness of breath at rest GASTROINTESTINAL: Denies constipation/diarrhea GENITOURINARY: denies dysuria MUSCULOSKELETAL: generalized weakness NEUROLOGICAL:no focal tremor/seizure, +peripheral polyneuropathy HEMATOLOGICAL: +anemia SKIN: +abdominal fold ulcers PSYCHIATRIC: Unremarkable All other review of systems found to be negative. PHYSICAL EXAMINATION: VITAL SIGNS: Please see below. GENERAL: Pleasant and cooperative. No acute distress. obese HEENT: PERRL. Extraocular movements intact. Clear conjunctiva CARDIOVASCULAR: Regular rate and rhythm. No murmurs, rubs, or gallops LUNGS: Clear to auscultation bilaterally. No wheezes. No rhonchi ABDOMEN: Soft, nontender, nondistended. Positive bowel sounds. Normal active bowel sounds NEUROLOGICAL: Alert and oriented times three. Cranial nerves II through XII grossly intact. Sensation diminished to light touch in stocking pattern EXTREMITIES: 5\5 strength left upper extremities, 4/5 RUE (due to recent nerve block for AVF) 4\5 strength right lower extremity. 4/5 strength in left lower extremity. (-) clonus (-) edema right wrist with TTP 1st MCP joint and scaphoid, no local swelling/warmth SKIN: sacrum without ulcers, bilateral abdominal fold unstageable ulcers, foul smelling with slough, periwounds dry ASSESSMENT:69-year-old F with past medical history of CHF, Afib, COPD, DM, ESRD on dialysis who presents status post CHF decompensation with peripheral polyneuropathy PLAN: 1. Rehab: PT advance gait training, using energy conservation techniques, OT advance ADLs- ambualting with RW -RPE 4-5 (pacemaker in place so cannot advise on max HR using Karvonen formula), 02 tubing management 2. Neuro: peripheral polyneuropathy with gait impairment due to longstanding DM 3. Cardiac: -hx diastolic CHF, home diuretics currently on hold due to recent pericardiocentesis and dialysis, monitor for soft BPs and c/u 1500cc fluid restriction -repeat ECHO ordered today per renal -hx Afib patient with PM/AICD, c/u low dose beta donna, switched from Coumadin to Eliquis 2.5 BID, medicine consulted to assist in management -HLD- statin -f/u with Dr. Euceda on d/c 4. Resp: COPD with hypoventiliation syndrome, c/u breathing treatments, Singulair, and supplemental 02 goal 88-92% -DEEDEE on CPAP 5. endo: pmh DM with peripheral polyneuropathy c/u ISS 6. Renal: ESRD on HED Thu//Sat, renal consulted, patient receiving sodium thiosulfate in HD -fluid management per Dr. Kinney, recs appreciated 7.Heme: anemia of chronic disease: c/u iron, Aranesp per renal 8. GI ppx: protonix 9. DVT ppx: on Eliquis, TEDs 10. Skin: abdominal skin fold calciphilaxis, discussed with Dr. Hickman, nathan to use Santyl on areas of slough areas, to be changed daily 11. Pain: avoid opioids as causes AMS and auditory hallucinations -c/u Cymbalta lower dose in setting of ESR, 30mg daily, c/u tylenol -right wrist pain-improved 12. Dispo: TBD--patient and questioning need for mammogram after recent imaging showed mass? I am not seeing this in-house recent records, will discuss with PMD, Marisel Maradiaga prior to discharge for follow-up, patient requesting to stay in rehab until 09-07-19 as her will be out of town for her daughter's throat surgery until then Allergies Coded Allergies: TAPE (Verified Allergy, Intermediate, reddness swelling, 04/26/19) tetanus immune globulin (Verified Allergy, Intermediate, SWELLING, 04/26) Contrast Media (Verified Adverse Reaction, Intermediate, kidney failure, 04/26/19) Vital Signs Vital Signs Date Time Temp Pulse Resp B/P (MAP) Pulse Ox O2 Delivery O2 Flow Rate FiO2 09/02/19 06:17 69 129/60 09/02/19 04:46 97.5 18 100 Nasal Cannula 2.0 Laboratory Data CBC/BMP Laboratory Tests 09/01/19 18:30 Labs 24H Laboratory Tests 2 09/01/19 11:50: Bedside Glucose (Misc Panel) 100 09/01/19 18:08: Bedside Glucose (Misc Panel) 105 09/01/19 18:30: Anion Gap 14, Glomerular Filtration Rate 19.7L, Calcium Level 8.7L, Phosphorus Level 2.5#, Albumin 2.7L 09/01/19 19:57: Bedside Glucose (Misc Panel) 120H 09/02/19 05:46: Bedside Glucose (Misc Panel) 82 Current Medications Current Medications Current Medications Medications (Trade) Dose Ordered Sig/Dion Route PRN Reason Start Time Stop Time Status Last Admin Dose Admin Acetaminophen (Tylenol Tab) 650 mg Q4HP PRN PO fever or pain 1-4 08/24/19 15:00 09/01/19 12:46 Acetaminophen (Tylenol Tab) 1,000 mg Q6HP PRN PO PAIN / FEVER 08/24/19 15:00 08/26/19 09:51 DC 08/25/19 16:35 Acetaminophen (Tylenol Tab) 1,000 mg TID PO 08/26/19 12:00 09/02/19 08:00 Acetaminophen/ Hydrocodone Bitart ([place], Anexsia 5/325) 1 tab Q4HP PRN PO MILD/MODERATE PAIN (PS 1-7) 08/24/19 15:00 08/26/19 09:51 DC 08/26/19 05:23 Albuterol Sulfate (Proventil, Ventolin Hfa) 2 puff Q2HP PRN INH SHORTNESS OF BREATH 08/24/19 15:00 Albuterol/ Ipratropium (Duoneb (Ipr 0.5mg/Alb 2.5mg)) 3 ml Q6HP PRN NEB SOB/WHEEZING 08/24/19 15:00 Allopurinol (Zyloprim) 100 mg DAILY PO 08/25/19 09:00 09/02/19 08:01 Alteplase, Recombinant (Cathflo Activase) 4 mg ASDIRECTED PRN IV SEE LABEL COMMENTS 08/29/19 09:30 Apixaban (Eliquis) 2.5 mg BID PO 08/24/19 21:00 09/02/19 08:01 Atorvastatin Calcium (Lipitor) 40 mg DAILY PO 08/25/19 09:00 09/02/19 08:01 Cetirizine HCl (ZyrTEC) 10 mg DAILY PO 08/25/19 09:00 08/29/19 15:07 DC 08/29/19 08:39 Collagenase (Santyl) APPLY TO BILATERAL HIP ... DAILY TOP 08/26/19 09:00 09/01/19 10:07 Dextrose (Dextrose 50%) 25 ml ASDIRECTED PRN IV SEE LABEL COMMENTS 08/24/19 16:45 Docusate Sodium (Colace) 100 mg BID PO 08/24/19 21:00 09/02/19 08:00 Duloxetine HCl (Cymbalta) 30 mg DAILY PO 08/30/19 09:00 08/31/19 15:33 DC 08/31/19 08:22 Duloxetine HCl (Cymbalta) 30 mg DAILY PO 08/31/19 09:00 08/31/19 18:04 DC Duloxetine HCl (Cymbalta) 30 mg DAILY PO 09/01/19 09:00 09/02/19 08:00 Duloxetine HCl (Cymbalta) 60 mg DAILY PO 09/01/19 09:00 08/31/19 17:47 DC Ferrous Gluconate (Fergon) 324 mg Q2D PO 08/25/19 09:00 09/02/19 08:01 Fluticasone Propionate (Flonase 0.05% Nasal [place]) 1 spray BID NARES 08/24/19 21:00 09/02/19 08:01 Glucagon (Glucagon) 1 mg ASDIRECTED PRN SC SEE LABEL COMMENTS 08/24/19 16:45 Glucose (Glucose) 16 GM ASDIRECTED PRN PO SEE LABEL COMMENTS 08/24/19 16:45 Home Med (Med Rec Complete!) ASDIRECTED XX 08/24/19 21:15 08/24/19 21:16 DC Insulin Human Lispro (HumaLOG INSULIN) SEE PROTOCOL TABLE AC SC 08/24/19 17:30 08/31/19 17:29 Insulin Human Lispro (HumaLOG INSULIN) SEE PROTOCOL TABLE QHS SC 08/24/19 21:00 Lactobacillus Acidophilus (Bacid) 1 ea TID PO 08/24/19 21:00 09/02/19 08:00 Latanoprost (Xalatan 0.005% Op Soln) 1 drop QHS OU 08/24/19 21:00 09/01/19 21:41 Lidocaine (Lidoderm Patch) 1 patch QHS TD 08/26/19 21:00 09/01/19 21:39 Magnesium Hydroxide (Milk Of Magnesia) 30 ml DAILYPRN PRN PO CONSTIPATION 08/24/19 15:00 08/30/19 06:24 Magnesium Oxide (Mag-Ox) 400 mg Q2D PO 08/25/19 09:00 09/02/19 08:01 Metoprolol Tartrate (Lopressor) 6.25 mg Q6H PO 08/25/19 00:00 09/02/19 06:17 Miscellaneous (Unresolved Clarification Entry) SEE LABEL COMMENTS DAILY XX 08/24/19 09:00 08/25/19 00:19 DC Montelukast Sodium (Singulair) 10 mg DAILY PO 08/25/19 09:00 09/02/19 08:00 Morphine Sulfate (Ms Contin) 15 mg BID PO 08/24/19 21:00 08/29/19 15:07 DC 08/29/19 08:40 Non-Formulary Medication ( See Comment Field Below ) CHECK TO SEE IF THE PATIENT... DAILY@1200 XX 08/25/19 12:00 Non-Formulary Medication ( See Comment Field Below ) REMOVE LIDODERM PATCH DAILY@0900 XX 08/27/19 09:00 09/02/19 08:02 Ondansetron HCl (Zofran) 4 mg Q4HP PRN PO NAUSEA OR VOMITING 08/26/19 13:30 09/01/19 16:13 Oxycodone HCl (Roxicodone, Oxyir) 2.5 mg BID@1700,2100 PO 08/29/19 17:00 08/29/19 15:19 DC Oxycodone HCl (Roxicodone, Oxyir) 2.5 mg Q24HP PRN PO PAIN 08/29/19 15:15 08/29/19 15:19 DC Oxycodone HCl (Roxicodone, Oxyir) 2.5 mg Q6HP PRN PO PAIN 08/30/19 08:15 08/30/19 11:17 DC Oxycodone HCl (Roxicodone, Oxyir) 5 mg BID@0700,1200 PO 08/26/19 12:00 08/29/19 15:19 DC 08/29/19 06:31 Oxycodone HCl (Roxicodone, Oxyir) 5 mg BID@1700,2100 PO 08/26/19 17:00 08/29/19 15:07 DC 08/28/19 21:45 Oxycodone HCl (Roxicodone, Oxyir) 5 mg Q24HP PRN PO PAIN 08/26/19 09:45 08/29/19 15:07 DC Pantoprazole Sodium (Protonix) 40 mg DAILY PO 08/25/19 09:00 09/02/19 08:01 Senna (Senokot) 1 tab QHS PO 08/24/19 21:00 09/01/19 21:39 Sevelamer Carbonate (Renvela) 800 mg WM PO 09/01/19 08:00 09/02/19 08:00 Sodium Thiosulfate 25 gm/ Sodium Chloride 200 ml @ 200 mls/hr HD IV 08/25/19 11:15 Sodium Thiosulfate (Sodium Thiosulfate) 30 gm HD IV 08/25/19 10:45 MARK SALGADO MD Sep 02, 2019 09:46
[2019-09-02] MEDS: [UNRECOGNIZED DRUG - REMARK] XX SCH (12:00)
[2019-09-02] MEDS: ACETAMINOPHEN TAB 650MG DOSE (2X325MG) PO PRN (13:36)
[2019-09-02 14:00] VITALS: BP 128/58
[2019-09-02] MEDS: SANTYL OINT 30GM TOP SCH (15:36)
--- NOTE | 2019-09-02 17:40 | IPN ---
DATE: 09/01/2019 SUBJECTIVE: The patient was seen and examined at the bedside today morning. She reports that she is having slightly more shortness of breath today as compared with yesterday. Today is her regular day of dialysis as well. She does report of mild persistent pain in the lower abdominal ulcers. Otherwise, she denies any active complaints. OBJECTIVE: Vital signs: Temperature is 97.5 degrees Fahrenheit, blood pressure 139/64, pulse of 69, respiratory of 18, saturating 99% on nasal cannula at 2 liters. Intake and output: There is no urine output recorded. Weight in the bed scale is 94.7 kg. PHYSICAL EXAMINATION: GENERAL: The patient is awake, alert, oriented times three, sitting up in the sofa in no apparent distress. HEAD AND NECK: Extraocular muscles intact. Pupils equally round and reactive to light. Mucous membranes are moist. Neck is supple. There is no jugular venous distention (JVD). CARDIOVASCULAR: S1, S2, regular rate. No edema of the bilateral lower extremities. RESPIRATORY: Chest is clear to auscultation bilaterally. Bilateral equal air entry. No rales or rhonchi. ABDOMEN: Soft, obese. Positive bowel sounds. Lower abdominal ulcers are noted. MUSCULOSKELETAL: No clubbing or cyanosis. Pulses are 2+. CENTRAL NERVOUS SYSTEM: No focal deficit. Power is 5/5 in all extremities. AV ACCESS: She has a right internal jugular (IJ) tunneled hemodialysis catheter and right upper arm arteriovenous (AV) fistula with thrill and bruit. LABORATORY REVIEW: CBC showed WBC 11.9, hemoglobin 10, platelets of 215. BMP showed sodium 131, potassium 4.8, chloride 95, bicarbonate 22, and that is from August 30. CURRENT INPATIENT MEDICATIONS: Current inpatient medications were all reviewed by myself. Cymbalta was changed to 30 mg daily. No other change in the medications today as compared with yesterday. ASSESSMENT AND PLAN: 1. End-stage renal disease. on hemodialysis. Today is the patient's regular day of dialysis. Ultrafiltration goal will be 2 liters as tolerated by blood pressure. 2. Anemia and end-stage renal disease. Continue current dose of Aranesp. Hemoglobin level is optimal. 3. Calciphylaxis. She continues to be on sodium thiosulfate. Phosphorus level is high. I have started the patient on Renvela 800 mg by mouth with meals. 4. Recent pericardial effusion. The patient had large pericardial effusion during the initial hospitalization. I have ordered a repeat echocardiogram for followup.
[2019-09-02 19:50] VITALS: BP 147/66
[2019-09-02] MEDS: SENNA 8.6 MG TAB (SENOKOT) PO SCH (20:01)
[2019-09-02] MEDS: LIDOCAINE 5% (LIDODERM) PATCH TD SCH (20:02)
[2019-09-02] MEDS: LATANOPROST 0.005% OPHTH SOLN 2.5 ML OU SCH (20:02)
--- NOTE | 2019-09-02 22:09 | IPN ---
DATE: 09/02/2019 SUBJECTIVE: The patient was seen and examined at the bedside today morning. She was dialyzed yesterday. She tolerated the hemodialysis procedure well. 2.5 liters of fluid was removed. The patient reports that she is feeling better today as compared with yesterday. She also got a repeat echocardiogram done today morning; official report is pending. She just reports lower abdominal pain at the ulcer sites; otherwise she denies any active complaints. OBJECTIVE: Vital signs: Temperature is 97.5 degrees Fahrenheit, blood pressure 124/58, pulse is 69, respiratory rate of 18, saturating 100% on nasal cannula at 2 liters. Intake and output: Ultrafiltration with hemodialysis was 2.5 liters. Weight in the bed scale is 92 kg. PHYSICAL EXAMINATION: General: The patient is awake, alert, oriented times three, laying in bed in no apparent distress. Head and neck exam: Extraocular muscles intact. Pupils equally round and reactive to light. Mucous membranes are moist. Neck is supple. There is no jugular venous distention (JVD). Cardiovascular: S1, S2, regular rate. No edema of the bilateral lower extremities. Respiratory: Chest is clear to auscultation bilaterally. Bilateral equal air entry. No rales or rhonchi. Abdomen: Soft, obese, positive bowel sounds. Lower abdominal ulcers secondary to calciphylaxis were noted. Musculoskeletal: No clubbing or cyanosis. Pulses are 2+. Central nervous system (PUMP INSTALLER): No focal deficits. Power is 5/5 in all extremities. Arteriovenous (AV) access: Right upper arm AV fistula with thrill and bruit and right internal jugular (IJ) tunneled hemodialysis catheter was noted. LAB REVIEW: CBC showed a WBC of 11.9 and hemoglobin of 10.1 and that is from yesterday and BMP is also from yesterday. CURRENT INPATIENT MEDICATIONS: The patient's medications were all reviewed by me. There is no change in the medications today as compared with yesterday. ASSESSMENT/PLAN: 1. End-stage renal disease. The patient is getting dialysis every Thursday, , Thursday. Next hemodialysis session will be tomorrow. Volume status is very well optimized. 2. Calciphylaxis. Continue current dose of sodium thiosulfate with each dialysis session. The patient is not on any calcium-based binders or vitamin D analouges. Calcium level is optimized. She was started on Renvela to decrease the phosphorus levels. 3. Anemia in end-stage renal disease. Hemoglobin level is optimal. She is not on any erythropoietin stimulating agent (DARSHANA). 4. Hyponatremia. It is secondary to hypervolemia in end-stage renal disease. Sodium level has improved after hemodialysis.
[2019-09-03] MEDS: METOPROLOL TART 12.5 MG PER 1/2 TAB PO SCH ×5 (00:36→23:54)
[2019-09-03 05:47] VITALS: BP 133/63
[2019-09-03] MEDS: HumaLOG INSULIN (NovoLOG) PER UNIT SC SCH ×4 (07:01→20:20)
[2019-09-03] MEDS: (RENVELA) SEVELAMER **CARBONate** 800 MG TAB PO SCH ×3 (08:16→20:18)
[2019-09-03] MEDS: DULoxetine 30 MG CAP (CYMBALTA) PO SCH (08:16)
[2019-09-03] MEDS: APIXABAN 2.5 MG TAB (ELIQUIS) PO SCH ×2 (08:16→20:18)
[2019-09-03] MEDS: allopurinoL 100 MG TAB PO SCH (08:16)
[2019-09-03] MEDS: MONTELUKAST 10 MG TAB PO SCH (08:16)
[2019-09-03] MEDS: ATORVASTATIN 20 MG TAB PO SCH (08:16)
[2019-09-03] MEDS: PANTOPRAZOLE 40MG TAB (PROTONIX) PO SCH (08:16)
[2019-09-03] MEDS: LACTOBACILLUS ACIDOPHILUS CAP (BACID) PO SCH ×3 (08:16→20:18)
[2019-09-03] MEDS: DOCUSATE SODIUM 100 MG CAP PO SCH ×2 (08:17→20:18)
[2019-09-03] MEDS: ACETAMINOPHEN 500 MG TAB PO SCH ×3 (08:17→20:18)
[2019-09-03] MEDS: FLUTICASONE PROP 0.05% NASAL SPRAY 16 GM (FLONASE) NARES SCH ×2 (08:17→20:18)
[2019-09-03] MEDS: SANTYL OINT 30GM TOP SCH (08:18)
[2019-09-03] MEDS: **NOTE PATIENT COMMENT** MISC XX SCH (08:18)
[2019-09-03 11:54] VITALS: BP 131/65
[2019-09-03] MEDS: ACETAMINOPHEN TAB 650MG DOSE (2X325MG) PO PRN ×2 (11:55→23:54)
[2019-09-03] MEDS ORDERED: HEPARIN 1,000 UNITS/ML 10ML VIAL (FOR RADIOLOGY& DIALYSIS ONLY) XX ONE (13:45)
[2019-09-03 14:00] VITALS: BP 106/53
[2019-09-03] MEDS: [UNRECOGNIZED DRUG - REMARK] XX SCH (16:00)
[2019-09-03 16:11] LABS: BASO % 0.3 % (0.0-1.0); EOS # 0.5 10^3/uL (0.0-0.5); EOS % 4.1 % (0.0-3.0); HEMATOCRIT 28.5 % (36.0-47.0); HEMOGLOBIN 9.1 g/dl (12.0-15.5); LYMPH # 0.9 10^3/uL (1.5-5.0); LYMPH % 8.2 % (24.0-44.0); MEAN CORPUSCULAR HGB CONC 31.9 g/dl (32.0-36.5); MEAN CORPUSCULAR VOLUME 94.1 fl (80.0-96.0); MONO # 1.2 10^3/uL (0.0-0.8); MONO % 10.4 % (0.0-5.0); NEUTROPHILS # 8.8 10^3/uL (1.5-8.5); NEUTROPHILS % 76.6 % (36.0-66.0); PLATELET COUNT, AUTOMATED 190 10^3/uL (150-450); RED BLOOD COUNT 3.03 10^6/uL (4.00-5.40); WHITE BLOOD COUNT 11.5 10^3/uL (4.0-10.0)
[2019-09-03 17:32] LABS: ALBUMIN 2.3 GM/DL (3.2-5.2); CALCIUM LEVEL 8.4 MG/DL (8.8-10.2); CREATININE FOR GFR 5.22 MG/DL (0.55-1.30); GLOMERULAR FILTRATION RATE 8.7 (>45); PHOSPHORUS LEVEL 5.1 MG/DL (2.5-4.9); POTASSIUM SERUM 3.6 MEQ/L (3.5-5.1)
[2019-09-03] MEDS ORDERED: DARBEPOETIN 100 MCG/0.5 ML *DIALYSIS* SYRINGE (J0882) IV SCH (18:45)
[2019-09-03 20:00] VITALS: BP 109/55
[2019-09-03] MEDS: LIDOCAINE 5% (LIDODERM) PATCH TD SCH (20:18)
[2019-09-03] MEDS: LATANOPROST 0.005% OPHTH SOLN 2.5 ML OU SCH (20:18)
[2019-09-03] MEDS: SENNA 8.6 MG TAB (SENOKOT) PO SCH (20:18)
[2019-09-04 06:00] VITALS: BP 131/63
[2019-09-04] MEDS: METOPROLOL TART 12.5 MG PER 1/2 TAB PO SCH ×3 (06:44→17:59)
[2019-09-04] MEDS: HumaLOG INSULIN (NovoLOG) PER UNIT SC SCH ×4 (07:30→19:58)
[2019-09-04] MEDS: MAGNESIUM OXIDE 400 MG TAB (MAG-OX) PO SCH (08:24)
[2019-09-04] MEDS: DOCUSATE SODIUM 100 MG CAP PO SCH ×2 (08:24→20:30)
[2019-09-04] MEDS: (RENVELA) SEVELAMER **CARBONate** 800 MG TAB PO SCH ×3 (08:24→17:58)
[2019-09-04] MEDS: FERROUS GLUCONATE 324 MG TAB PO SCH (08:24)
[2019-09-04] MEDS: allopurinoL 100 MG TAB PO SCH (08:25)
[2019-09-04] MEDS: ATORVASTATIN 20 MG TAB PO SCH (08:25)
[2019-09-04] MEDS: FLUTICASONE PROP 0.05% NASAL SPRAY 16 GM (FLONASE) NARES SCH ×2 (08:25→20:31)
[2019-09-04] MEDS: LACTOBACILLUS ACIDOPHILUS CAP (BACID) PO SCH ×3 (08:25→20:30)
[2019-09-04] MEDS: DULoxetine 30 MG CAP (CYMBALTA) PO SCH (08:25)
[2019-09-04] MEDS: ACETAMINOPHEN 500 MG TAB PO SCH ×3 (08:25→20:31)
[2019-09-04] MEDS: MONTELUKAST 10 MG TAB PO SCH (08:25)
[2019-09-04] MEDS: PANTOPRAZOLE 40MG TAB (PROTONIX) PO SCH (08:25)
[2019-09-04] MEDS: APIXABAN 2.5 MG TAB (ELIQUIS) PO SCH ×2 (08:25→20:30)
[2019-09-04] MEDS: SANTYL OINT 30GM TOP SCH (08:26)
[2019-09-04] MEDS: **NOTE PATIENT COMMENT** MISC XX SCH (08:26)
--- NOTE | 2019-09-04 10:03 | IPN ---
DATE OF SERVICE: 09/03/2019 SUBJECTIVE: The patient was seen and examined at the bedside today morning. She just got her dressing of the calciphylaxis wounds done and she complains of pain in the wounds. Today is the patient's regular day of dialysis. Apart from the pain, she denies any active complaints. Echocardiogram result is still pending. The patient denies any shortness of breath today. OBJECTIVE: Vital Signs: Temperature is 97.5 degrees Fahrenheit, blood pressure 106/53, pulse is 71, respiratory rate of 17, saturating 100% on nasal cannula at 2 liters. Intake and Output: There is no urine output recorded. Weight in the bed scale was 92 kg yesterday. PHYSICAL EXAMINATION: General: The patient is awake, alert, oriented times three, sitting up in the bed in no apparent distress. Head and Neck Exam: Extraocular muscles intact. Pupils equally round and reactive to light. Mucous membranes are moist. Neck is supple. There is no jugular venous distention (JVD). Cardiovascular: S1, S2, regular rate. No edema of the bilateral lower extremities. Respiratory: Chest is clear to auscultation bilaterally. Bilateral equal air entry. No rales or rhonchi. Abdomen: Soft, obese, positive bowel sounds. Bilateral lower abdominal calciphylaxis ulcers. Musculoskeletal: No clubbing or cyanosis. Pulses are 2+. UNHAIRER: No focal deficit. Power is power is 5/5 in all extremities. LAB REVIEW: CBC showed a WBC of 11.5, hemoglobin 9.1, platelets of 190. BMP showed sodium 132, potassium 3.6, chloride 93, bicarb 26, BUN 50, creatinine 5.2, calcium 8.4, phosphorus 5.1. CURRENT INPATIENT MEDICATIONS: The patient's medications were all reviewed by me. There is no change in the medications today as compared with yesterday. ASSESSMENT/PLAN: 1. End-stage renal disease on hemodialysis. The patient's regular dialysis day is today. She will be dialyzed today and ultrafiltration goal will be around 2.5 kg as tolerated by her blood pressure. 2. Calciphylaxis. The patient still gets regular dressings done. She continues to be on sodium thiosulfate. I have ordered a parathyroid hormone level as well. PTH level is high. She will be started on Sensipar. 3. Chronic kidney disease mineral bone disease. Continue current dose of Renvela with meals. Phosphorus level is still slightly elevated. If it stays high, then Renvela dose will be increased. 4. Anemia in end-stage renal disease. Hemoglobin level is slightly suboptimal. I am going to start the patient on Aranesp with dialysis.
--- NOTE | 2019-09-04 11:37 | ECHO ---
DATE OF PROCEDURE: 09/02/2019 DATE OF : 1950 AGE: 69 GENDER: Female HEIGHT: 61 inches WEIGHT: 209 pounds BODY SURFACE AREA: 1.93 m2 INPATIENT: 4 [place] - Room 4144 REFERRING PHYSICIAN: Dr. Reynoso INDICATION: Pericardial effusion. MEASUREMENTS 2-D measurements: RV: 4.0 cm Lv: 4.2 cm Septum: 1.1 cm Posterior wall: 1.0 cm Aortic root: 2.8 cm LA: 3.8 cm LVEF: 65% Doppler Measurements: AV: 3.06 m/s LVOT: 0.93 m/s LVOT diameter: 2.0 cm Mean AV systolic gradient: 22 mmHg Dimensionless index: 0.35 MV - E 69 A 100 EA ratio 0.7 Early mitral deceleration time: 300 ms E prime medial: 4.5 A prime medial: 7.5 E prime lateral: 5 Average E/E prime ratio: 14.5/PWCP: 20 mmHg PV: 0.88 m/s Pulmonary artery acceleration time: 116 ms RVSP: 32 mmHg IVC: 1.4 cm COMMENTS: Consistent AV sequentially paced rhythm. Paced QRS complex with RBBB configuration in keeping with biventricular stimulation. Technically challenging study in light of the patient's body habitus, but diagnostically useful information was still obtained. M-mode and two-dimensional echocardiography was performed with pulsed, continuous wave, color flow and tissue Doppler studies. Normal left ventricular size, wall thickness and wall motion. Left atrial size upper limits of normal to least mildly dilated with grade 1 LV diastolic dysfunction and elevated mean left atrial pressure. Normal right heart chamber sizes and wall motion with Doppler evidence of mild pulmonary hypertension. Normal IVC size and collapse against an elevated central venous pressure. Moderate calcific aortic stenosis with mild insufficiency. Normal aortic root and proximal ascending aortic diameters. Mild thickened mitral annulus, but normal leaflet thickness and excursion with no functional abnormality. Normal appearing tricuspid valve with mild insufficiency. Pacing leads could be visualized traversing right heart structures. Minuscule anterior and posterior echo-free spaces measuring approximately 2 mm. No sign of cardiac chamber compression or respiratory variation in pulsed Doppler flow against any hemodynamically significant pericardial disease. IVC size within normal limits, also against cardiac compression (tamponade or constriction).
[2019-09-04] MEDS: [UNRECOGNIZED DRUG - REMARK] XX SCH (11:56)
[2019-09-04 14:00] VITALS: BP 147/76
[2019-09-04 20:00] VITALS: BP 123/58
[2019-09-04] MEDS: SENNA 8.6 MG TAB (SENOKOT) PO SCH (20:30)
[2019-09-04] MEDS: LATANOPROST 0.005% OPHTH SOLN 2.5 ML OU SCH (20:31)
[2019-09-04] MEDS: LIDOCAINE 5% (LIDODERM) PATCH TD SCH (20:31)
[2019-09-05] MEDS: METOPROLOL TART 12.5 MG PER 1/2 TAB PO SCH ×5 (00:42→23:17)
[2019-09-05 06:00] VITALS: BP 130/60
[2019-09-05] MEDS: ACETAMINOPHEN TAB 650MG DOSE (2X325MG) PO PRN ×3 (06:16→23:19)
[2019-09-05] MEDS: HumaLOG INSULIN (NovoLOG) PER UNIT SC SCH ×4 (07:30→19:52)
[2019-09-05] MEDS: (RENVELA) SEVELAMER **CARBONate** 800 MG TAB PO SCH ×3 (07:57→18:01)
[2019-09-05 09:30] LABS: PTH INTACT 160.2 PG/ML (18.5-88.0)
[2019-09-05] MEDS: APIXABAN 2.5 MG TAB (ELIQUIS) PO SCH ×2 (09:31→21:13)
[2019-09-05] MEDS: LACTOBACILLUS ACIDOPHILUS CAP (BACID) PO SCH ×3 (09:31→21:13)
[2019-09-05] MEDS: DOCUSATE SODIUM 100 MG CAP PO SCH ×2 (09:31→21:13)
[2019-09-05] MEDS: ATORVASTATIN 20 MG TAB PO SCH (09:31)
[2019-09-05] MEDS: ACETAMINOPHEN 500 MG TAB PO SCH ×3 (09:31→21:00)
[2019-09-05] MEDS: allopurinoL 100 MG TAB PO SCH (09:32)
[2019-09-05] MEDS: DULoxetine 30 MG CAP (CYMBALTA) PO SCH (09:32)
[2019-09-05] MEDS: FLUTICASONE PROP 0.05% NASAL SPRAY 16 GM (FLONASE) NARES SCH ×2 (09:32→21:13)
[2019-09-05] MEDS: SANTYL OINT 30GM TOP SCH (09:32)
[2019-09-05] MEDS: MONTELUKAST 10 MG TAB PO SCH (09:32)
[2019-09-05] MEDS: PANTOPRAZOLE 40MG TAB (PROTONIX) PO SCH (09:32)
[2019-09-05] MEDS: **NOTE PATIENT COMMENT** MISC XX SCH (09:33)
[2019-09-05] MEDS: [UNRECOGNIZED DRUG - REMARK] XX SCH (12:00)
[2019-09-05 13:13] LABS: HEMATOCRIT 33.9 % (36.0-47.0); HEMOGLOBIN 10.5 g/dl (12.0-15.5); MEAN CORPUSCULAR HEMOGLOBIN 29.2 pg (27.0-33.0); MEAN CORPUSCULAR VOLUME 94.2 fl (80.0-96.0); PLATELET COUNT, AUTOMATED 252 10^3/uL (150-450); WHITE BLOOD COUNT 15.2 10^3/uL (4.0-10.0)
[2019-09-05 13:23] LABS: CALCIUM LEVEL 9.1 MG/DL (8.8-10.2); CREATININE FOR GFR 4.94 MG/DL (0.55-1.30); GLOMERULAR FILTRATION RATE 9.3 (>45); POTASSIUM SERUM 3.8 MEQ/L (3.5-5.1)
[2019-09-05] MEDS ORDERED: HEPARIN 1,000 UNITS/ML 10ML VIAL (FOR RADIOLOGY& DIALYSIS ONLY) XX ONE (16:00)
[2019-09-05 20:00] VITALS: BP 124/58
[2019-09-05] MEDS: LIDOCAINE 5% (LIDODERM) PATCH TD SCH (21:13)
[2019-09-05] MEDS: SENNA 8.6 MG TAB (SENOKOT) PO SCH (21:13)
[2019-09-05] MEDS: LATANOPROST 0.005% OPHTH SOLN 2.5 ML OU SCH (21:14)
[2019-09-06 06:16] VITALS: BP 130/72
[2019-09-06] MEDS: METOPROLOL TART 12.5 MG PER 1/2 TAB PO SCH ×4 (06:17→23:45)
[2019-09-06] MEDS: HumaLOG INSULIN (NovoLOG) PER UNIT SC SCH ×4 (08:02→21:00)
[2019-09-06] MEDS: ATORVASTATIN 20 MG TAB PO SCH (08:03)
[2019-09-06] MEDS: ACETAMINOPHEN 500 MG TAB PO SCH ×3 (08:03→20:02)
[2019-09-06] MEDS: DULoxetine 30 MG CAP (CYMBALTA) PO SCH (08:03)
[2019-09-06] MEDS: (RENVELA) SEVELAMER **CARBONate** 800 MG TAB PO SCH ×3 (08:03→17:05)
[2019-09-06] MEDS: DOCUSATE SODIUM 100 MG CAP PO SCH ×2 (08:03→20:01)
[2019-09-06] MEDS: allopurinoL 100 MG TAB PO SCH (08:03)
[2019-09-06] MEDS: MONTELUKAST 10 MG TAB PO SCH (08:03)
[2019-09-06] MEDS: LACTOBACILLUS ACIDOPHILUS CAP (BACID) PO SCH ×3 (08:03→20:01)
[2019-09-06] MEDS: APIXABAN 2.5 MG TAB (ELIQUIS) PO SCH ×2 (08:03→20:02)
[2019-09-06] MEDS: FERROUS GLUCONATE 324 MG TAB PO SCH (08:03)
[2019-09-06] MEDS: PANTOPRAZOLE 40MG TAB (PROTONIX) PO SCH (08:03)
[2019-09-06] MEDS: MAGNESIUM OXIDE 400 MG TAB (MAG-OX) PO SCH (08:04)
[2019-09-06] MEDS: FLUTICASONE PROP 0.05% NASAL SPRAY 16 GM (FLONASE) NARES SCH ×2 (08:04→20:02)
[2019-09-06] MEDS: **NOTE PATIENT COMMENT** MISC XX SCH (08:04)
[2019-09-06] MEDS ORDERED: ATOR1TAB21 PO (09:06)
[2019-09-06] MEDS ORDERED: RISATAB3 PO (09:06)
[2019-09-06] MEDS ORDERED: ELIQ2.5T PO (09:06)
[2019-09-06] MEDS ORDERED: CYMB1CAP5 PO (09:06)
[2019-09-06] MEDS ORDERED: MONT10TA2 PO (09:06)
[2019-09-06] MEDS ORDERED: SANT250O8 TOP (09:06)
[2019-09-06] MEDS ORDERED: RENV2TAB PO (09:06)
[2019-09-06] MEDS ORDERED: PANT40TA3 PO (09:06)
[2019-09-06] MEDS ORDERED: ALLO10TA PO (09:06)
[2019-09-06] MEDS ORDERED: METO1TAB87 PO (09:06)
--- NOTE | 2019-09-06 10:51 | IPN ---
DATE: 09/04/2019 SUBJECTIVE: The patient was seen and examined at the bedside today morning. She is afebrile, hemodynamically stable. She was actually getting physical therapy when I saw her she still reports pain in the lower abdominal ulcers. Otherwise she denies any active complaints. She was dialyzed yesterday two liter of fluid was removed. OBJECTIVE: Vital signs: Temperature is 97.3, blood pressure 119/55, pulse is 69, respiratory of 18, saturating 98% on nasal cannula at 2 liters. Intake and output. Ultrafiltration with hemodialysis was 2 liters yesterday. Weight in the bed scale is 91.6 kg. PHYSICAL EXAMINATION: General: The patient is awake, alert, oriented times three and getting physical therapy. No apparent distress. Head and neck exam extraocular muscles intact. Pupils equally round and reactive to light. Mucous membranes are moist. Neck is supple. She has a tunneled hemodialysis catheter. Cardiovascular: S1, S2 regular rate. No edema of the bilateral lower extremities. Respiratory: Chest is clear to auscultation bilaterally. Bilateral equal air entry. No rales or rhonchi. Abdomen: Soft, obese, positive bowel sounds and tenderness in the lower abdomen because of ulcers. Musculoskeletal: No clubbing or cyanosis. MOLD MAKER PLASTER: No focal deficit power is 5/5 in all extremities and patient is getting physical therapy. LAB REVIEW: CBC and BMP are from yesterday. There are no new labs available today. CURRENT INPATIENT MEDICATIONS: The patient's medications were all reviewed by myself there is no change in the medications today as compared with yesterday. ASSESSMENT/PLAN: 1. End-stage renal disease. The patient is on dialysis every Thursday, and Thursday. She was dialyzed yesterday. Next hemodialysis will be tomorrow because of the holiday schedule. 2. Calciphylaxis. The patient is receiving sodium thiosulfate. Calcium level is within the acceptable range, then switch to Eliquis. Parathyroid hormone is still pending. 3. Chronic kidney disease mineral bone disease. Continue current dose of Renvela with meals. 4. Anemia and end-stage renal disease. Patient was started on Aranesp yesterday.
[2019-09-06] MEDS: [UNRECOGNIZED DRUG - REMARK] XX SCH (11:19)
--- NOTE | 2019-09-06 12:33 | IPN ---
DATE: 09/05/2019 SUBJECTIVE: Gerson was seen and examined this afternoon in the hemodialysis unit receiving her treatment. She complains of significant pain at the areas of calciphylaxis. She otherwise denies any issues and is tolerating dialysis well and denies chest pain or shortness of breath. Vital signs: Temperature 96.8, pulse 70, respiratory rate 18, blood pressure 130/60, saturating 98% on room air. Intake yesterday was not fully recorded. Dialysis today removed 2 liters. Weight in the bed scale today is not recorded. General the patient is seen in the hemodialysis unit receiving her treatment awake, alert, oriented, comfortable in no acute respiratory distress. Extraocular muscles are intact. Tongue is moist. Pupils are round and reactive to light. Neck is supple. There is no jugular venous distension. Cardiac S1, S2 regular rate no edema in the lower extremities. Lungs were clear to auscultation bilaterally. No rale or rhonchi. Abdomen is soft and there are bowel sounds. The calciphylaxis ulcers in the lower abdominal areas were not examined. Musculoskeletal: No clubbing or cyanosis of the lower extremities. Radial pulses palpable and there is a the newly placed fistula present in the right upper extremity. Neurologic: She is oriented x3. No focal deficit. LABORATORY DATA: White count 15.2, hemoglobin 10.5, platelet 252, sodium 132, potassium 3.8. INPATIENT MEDICATIONS: Reviewed by myself and no change from prior. PROBLEMS: 1. End-stage renal disease on hemodialysis. The patient is dialyzed today two liters of fluid were removed . Her Perma-Cath is in good use her volume status and electrolytes are acceptable. No changes being made to the current hemodialysis prescription. She is receiving heparin free hemodialysis. 2. Calciphylaxis. She continues with regular wound care. She complains of pain at the site of calciphylaxis ulcers and calciphylaxis is known to be an exquisitely painful disease. Pain medications will be adjusted by the primary team. I suggest that she may need some low-dose oxycodone for severe pain. At present that looks like she is just on Tylenol. She also continues on sodium thiosulfate with hemodialysis treatment and her parathyroid hormone and phosphorus and calcium levels are all acceptable. 3. Anemia secondary to chronic inflammatory state iron deficiency and end-stage renal disease. The patient continues on iron supplementation and orally and is receiving Aranesp with hemodialysis treatment the hemoglobin is improved to 10.5. 4. Hypertension and blood pressure is well controlled with current dose of Lopressor and no changes are being made.
[2019-09-06 14:00] VITALS: BP 129/60
[2019-09-06] MEDS: SANTYL OINT 30GM TOP SCH (16:32)
[2019-09-06] MEDS: SENNA 8.6 MG TAB (SENOKOT) PO SCH (20:01)
[2019-09-06] MEDS: LATANOPROST 0.005% OPHTH SOLN 2.5 ML OU SCH (20:02)
[2019-09-06] MEDS: LIDOCAINE 5% (LIDODERM) PATCH TD SCH (20:02)
[2019-09-06 21:08] VITALS: BP 108/54
[2019-09-06] MEDS: ACETAMINOPHEN TAB 650MG DOSE (2X325MG) PO PRN (23:45)
[2019-09-07 05:29] VITALS: BP 118/56
[2019-09-07] MEDS: ACETAMINOPHEN TAB 650MG DOSE (2X325MG) PO PRN (05:29)
[2019-09-07] MEDS: METOPROLOL TART 12.5 MG PER 1/2 TAB PO SCH (05:29)
[2019-09-07 05:33] VITALS: BP 118/56
[2019-09-07] MEDS: ATORVASTATIN 20 MG TAB PO SCH (08:22)
[2019-09-07] MEDS: MONTELUKAST 10 MG TAB PO SCH (08:22)
[2019-09-07] MEDS: DULoxetine 30 MG CAP (CYMBALTA) PO SCH (08:22)
[2019-09-07] MEDS: LACTOBACILLUS ACIDOPHILUS CAP (BACID) PO SCH (08:22)
[2019-09-07] MEDS: HumaLOG INSULIN (NovoLOG) PER UNIT SC SCH (08:22)
[2019-09-07] MEDS: PANTOPRAZOLE 40MG TAB (PROTONIX) PO SCH (08:22)
[2019-09-07] MEDS: DOCUSATE SODIUM 100 MG CAP PO SCH (08:22)
[2019-09-07] MEDS: (RENVELA) SEVELAMER **CARBONate** 800 MG TAB PO SCH (08:22)
[2019-09-07] MEDS: APIXABAN 2.5 MG TAB (ELIQUIS) PO SCH (08:22)
[2019-09-07] MEDS: allopurinoL 100 MG TAB PO SCH (08:23)
[2019-09-07] MEDS: ACETAMINOPHEN 500 MG TAB PO SCH (08:23)
[2019-09-07] MEDS: **NOTE PATIENT COMMENT** MISC XX SCH (08:24)
[2019-09-07 08:56] LABS: HEMATOCRIT 34.3 % (36.0-47.0); HEMOGLOBIN 10.6 g/dl (12.0-15.5); MEAN CORPUSCULAR HEMOGLOBIN 29.4 pg (27.0-33.0); MEAN CORPUSCULAR HGB CONC 30.9 g/dl (32.0-36.5); MEAN CORPUSCULAR VOLUME 95.3 fl (80.0-96.0); PLATELET COUNT, AUTOMATED 297 10^3/uL (150-450); WHITE BLOOD COUNT 17.9 10^3/uL (4.0-10.0)
[2019-09-07] MEDS: SANTYL OINT 30GM TOP SCH (09:00)
[2019-09-07] MEDS: FLUTICASONE PROP 0.05% NASAL SPRAY 16 GM (FLONASE) NARES SCH (09:00)
--- NOTE | 2019-09-08 17:16 | PMRDS ---
DATE OF ADMISSION: 08/24/2019 DATE OF DISCHARGE: 09/07/2019 CHIEF COMPLAINT/DISCHARGE DIAGNOSES: 1. Congestive heart failure exacerbation with pericardial effusion. 2. End-stage renal disease with diabetic peripheral polyneuropathy. HISTORY OF PRESENT ILLNESS: A 69-year-old female with a past medical history of chronic kidney disease (CKD) V, recently started on dialysis Thursday, , Thursday, calciphylaxis secondary to end-stage renal disease, on sodium thiosulfate, anemia of chronic disease, atrial fibrillation, on Coumadin with pacemaker, automatic implantable cardioverter-defibrillator (AICD), grade 1 diastolic dysfunction, morbid obesity, fatty liver, hypertension, obstructive sleep apnea (DEEDEE), on continuous positive airway pressure (CPAP), diabetes with diabetic polyneuropathy, chronic obstructive pulmonary disease (COPD), and obesity hypoventilation syndrome, on 2 liters nasal cannula, psoriasis, gastrointestinal (GI) bleed in 2018, presented to [facility] ([facility]) Emergency Department (ED) on 08/15/2019 with weakness, low blood pressure (BP), 6-pound weight gain in a week, and admitted for acute congestive heart failure (CHF) exacerbation. Chest x-ray showed "marked cardiomegaly and pulmonary vascular congestion. Large left lower lobe opacity suggesting effusion and consolidation." CT chest showed "markedly enlarged pericardial effusion extending into the left hemithorax... Moderate left small/moderate right pleural effusions with associated bibasilar atelectasis (left greater than right)." She was transferred intensive care unit (ICU), received vitamin K and fresh frozen plasma (FFP) for an INR of 2.8 in preparation for a pericardiocentesis, which was performed on 08/16/2019 with 1200 mL removed. The patient was switched from Coumadin to Eliquis to avoid worsening calciphylaxis and chest tube removed on 08/19/2019. She continued to receive dialysis and underwent arteriovenous (AV) fistula placement on 08/24/2019, after which she was discharged to acute rehabilitation unit (ARU) with significant impairment in mobility and activities of daily living (ADLs). PAST MEDICAL HISTORY: As per history of present illness (HPI). HOSPITAL COURSE: The patient was admitted and enrolled in a comprehensive physical therapy (PT)/occupational therapy (OT) program. She received 24-hour nursing supervision, and weekly team meetings were held to discuss her progress. The patient continued with dialysis and was followed closely by renal for fluid management. She received daily wound dressing changes and was started on Cymbalta for her pain. The patient initially was continued on an opioid regimen, however, had periods of lethargy and altered mental status, for which all opioids were discontinued. The patient continued on a fluid restriction and was maintained on a low-dose beta donna in the setting of atrial fibrillation and Eliquis 2.5 mg twice a day. She was deemed medically and functionally stable to return home with close followup per renal. Of note, the patient had leukocytosis on day of discharge, however, denied dysuria, cough, and was without fever. DISCHARGE MEDICATIONS: As per instructions. FUNCTIONAL HISTORY OF DISCHARGE: The patient was modified independent. Able to ambulate 62 feet with a rolling walker and negotiate her oxygen tubing. In occupational therapy she was modified independent for bathing, dressing, toileting, and all functional transfers. Thank you for this referral.
== END 2019-09-07 11:00 | disposition home health service (06) | DRG 73 ==
LOC: M PM&R 08-24 20:30
PROVIDERS: ADMIT Physical Medicine & Rehabilitation; ATTEND Physical Medicine & Rehabilitation
PROC: 5A1D70Z Performance of Urinary Filtration, Intermittent, Less than 6 Hours Per Day (ICD-10-PCS; principal; 2019-08-25)
DX: E11.42 Type 2 diabetes mellitus with diabetic polyneuropathy (principal); N18.6 End stage renal disease; I50.32 Chronic diastolic (congestive) heart failure; E66.2 Morbid (severe) obesity with alveolar hypoventilation; L98.498 Non-pressure chronic ulcer of skin of other sites with other specified severity; J96.10 Chronic respiratory failure, unspecified whether with hypoxia or hypercapnia; E87.1 Hypo-osmolality and hyponatremia; D63.1 Anemia in chronic kidney disease; I48.0 Paroxysmal atrial fibrillation; E11.22 Type 2 diabetes mellitus with diabetic chronic kidney disease; K76.0 Fatty (change of) liver, not elsewhere classified; J44.9 Chronic obstructive pulmonary disease, unspecified; L40.9 Psoriasis, unspecified; R53.81 Other malaise; R26.89 Other abnormalities of gait and mobility; M25.531 Pain in right wrist; E83.59 Other disorders of calcium metabolism; R53.1 Weakness; Z95.810 Presence of automatic (implantable) cardiac defibrillator; Z79.01 Long term (current) use of anticoagulants; Z99.2 Dependence on renal dialysis; Z79.4 Long term (current) use of insulin; Z79.899 Other long term (current) drug therapy; Z88.7 Allergy status to serum and vaccine; Z91.041 Radiographic dye allergy status; Z91.048 Other nonmedicinal substance allergy status; Z68.39 Body mass index [BMI] 39.0-39.9, adult; Z99.81 Dependence on supplemental oxygen

== ENCOUNTER → 2019-09-21 | Outpatient (CLI) | payer MEDICARE ==
[~2019-09-21] MED LIST changes: +ATOR1TAB21 PO; +CYMB1CAP5 PO; +HEPARIN 1,000 UNITS/ML 10ML VIAL (FOR RADIOLOGY& DIALYSIS ONLY) As Ordered ONE; +HYDR-3713 PO; +ISOVUE-300 61% 50ML VIAL (Q9967) As Ordered ONE; +LIDOCAINE 1% MDV 20ML VIAL As Ordered ONE; +METO1TAB87 PO; +MIDAZOLAM INJ 2 MG/2 ML VIAL (J2250) As Ordered ONE; +OXYC1TAB23 PO; +RENV2TAB PO; +SANT250O8 TOP; +diphenhydrAMINE INJ 50MG/ML VIAL (J1200) As Ordered ONE; +fentaNYL 100 MCG/2 ML INJECTION (J3010) As Ordered ONE
--- NOTE | 2019-09-21 15:24 | IRHP ---
[facility] IR Pre-Procedure H & P General Date of Service: Sep 21, 2019 Procedure: Same Day Surgery Interval History and Physical I have seen the patient and reviewed last H & P performed within 30 days. There is no significant interval change. History of Present Illness Chief Complaint The patient is a 69-year-old female admitted with a reason for visit of Ckd, Poor Flow. PRE-PROCEDURE DIAGNOSIS: RF HEART: normal rate. LUNGS: normal breathing at rest. ASA Classification ASA Classification: III-Severe systemic dis. Mallampati Score: II NPO: Yes Problems with prior sedation: No Obstructive Sleep Apnea: No Plan moderate sedation Allergies Coded Allergies: TAPE (Verified Allergy, Intermediate, reddness swelling, 04/26/19) tetanus immune globulin (Verified Allergy, Intermediate, SWELLING, 04/26/19) Contrast Media (Verified Adverse Reaction, Intermediate, kidney failure, 04/26/19) Home Medications Scheduled Allopurinol (Allopurinol), 100 MG PO DAILY, (Reported) Allopurinol (Allopurinol), 100 MG PO DAILY Apixaban (Eliquis), 1 TAB PO BID Apixaban (Eliquis), 2.5 MG PO BID Atorvastatin Calcium (Atorvastatin Calcium), 40 MG PO DAILY, (Reported) Atorvastatin Calcium (Atorvastatin Calcium), 40 MG PO DAILY Cetirizine HCl (Cetirizine HCl), 10 MG PO DAILY, (Reported) Collagenase Clostridium Hist. (Santyl), 0 DOSE TOP DAILY Docusate Sodium (Colace), 100 MG PO BID, (Reported) Duloxetine Hcl (Cymbalta), 30 MG PO DAILY Ferrous Gluconate (Ferrous Gluconate), 324 MG PO Q2D, (Reported) Fluticasone Propionate (Flonase Allergy Relief), 1 SPRAY NARES DAILY, (Reported) Insulin (Humulin R U-500), 1 DOSE SC AC, (Reported) L.acidoph/L.bulg/B.bif/S.therm (Letty-Bid Caplet), 1 TAB PO WM, (Reported) L.acidoph/L.bulg/B.bif/S.therm (Letty-Bid Caplet), 1 EA PO TID Latanoprost (Xalatan), 1 DROP OU QHS, (Reported) Magnesium Oxide (Magnesium Oxide), 400 MG PO Q2D, (Reported) Metoprolol Tartrate (Metoprolol Tartrate), 6.25 MG PO Q6H Montelukast Sodium (Montelukast Sodium), 10 MG PO DAILY, (Reported) Montelukast Sodium (Montelukast Sodium), 10 MG PO DAILY Pantoprazole Sodium (Pantoprazole Sodium), 40 MG PO DAILY, (Reported) Pantoprazole Sodium (Pantoprazole Sodium), 40 MG PO DAILY Sevelamer Carbonate (Renvela), 800 MG PO WM Vit C/E/Zn/Coppr/Lutein/Zeaxan (Preservision Areds 2 Softgel), 1 EACH PO BID, (Reported) Scheduled PRN Acetaminophen (Acetaminophen), 1,000 MG PO Q8H PRN for PAIN, (Reported) Albuterol Sulfate (Ventolin Hfa), 2 PUFF INH Q4H PRN for SHORTNESS OF BREATH, (Reported) Ammonium Lactate (Ammonium Lactate), 1 APPLIC TOP BID PRN for ITCHING, (Reported) Hydrocodone/Acetaminophen (Hydrocodone-Acetamin 5-325 mg), 1 TAB PO Q6H PRN for PAIN, (Reported) Ipratropium/Albuterol Sulfate (Iprat-Albut 0.5-3(2.5) mg/3 ml), 1 VIAL INH Q6H PRN for SHORTNESS OF BREATH, (Reported) VS, I&O, 24H, Fishbone Vital Signs/I&O Vital Signs Date Time Temp Pulse Resp B/P (MAP) Pulse Ox O2 Delivery O2 Flow Rate FiO2 09/21/19 15:20 79 18 100 Nasal Cannula 09/21/19 14:50 2 09/21/19 13:30 97.1 DAVID ADAME MD Sep 21, 2019 15:24
--- NOTE | 2019-09-21 15:25 | POST-OPPD ---
Postoperative Procedure Note Date Of Procedure: Sep 21, 2019 Time Of Procedure: 15:24 PREOPERATIVE DIAGNOSIS: RF POSTOPERATIVE DIAGNOSIS: same FINDINGS: right permcath not working. venogram shows no fibrin sheath. PROCEDURE: right perm exchanged SURGEON: mike ANESTHESIA: mod sed ESTIMATED BLOOD LOSS: < 5 ml COMPLICATIONS: none POSTOPERATIVE CONDITION: stable DAVID ADAME MD Sep 21, 2019 15:25
[2019-09-21 17:27] VITALS: BP 154/68
--- NOTE | 2019-09-22 11:26 | REP ---
IR Permcath Exchange. IR Permcath exchange under fluoroscopy guidance. IR Venogram. IR moderate sedation. Clinical information: Renal failure. Dialysis catheter not working. Physician: Dr. Chan. Procedure: The patient was advised of the benefits, risks and alternatives of the procedure and informed consent was obtained. The time-out was performed with verification of the patient's name, MRN, site of procedure and type of procedure to be performed. The patient was positioned in the supine position on the angiographic table. The site was prepped and draped in the usual sterile fashion. Moderate sedation was performed by the physician including the presence of an independent trained observer who assisted in monitoring the patient's level of consciousness and physiologic status. Following the administration of fentanyl and Versed , the physician spent 45 minutes of continuous face to face time with the patient. A bag cutter radiograph reveals right internal jugular permcath; tip at the cavoatrial junction. The heparin flushes was aspirated from the catheter. There is initial difficulty aspirating the catheter. A small flush followed by aspiration was successful. A venogram was performed through the existing PermCath and this demonstrates good flow into the heart. No fibrin sheath. Two Amplatz wires were advanced through the catheter into the inferior vena cava under fluoroscopy guidance. The sutures holding the catheter in place were cut and blunt dissection of the cuff was performed using hemostats. The catheter was removed over the wire. A new 19 cm glide cath dialysis catheter was advanced over the wire using fluoroscopy guidance. The tip was positioned in the right atrium. The wires were then removed. The catheter was sutured in position with 2-0 Prolene. Both ports aspirated and flushed easily. At the conclusion of the procedure, the catheter was locked with high-dose heparin. The patient tolerated the procedure well and was returned to the PRU in stable condition. EBL: < 5 ml. Complications: None. Conclusion: Successful exchange of preexisting right sided PermCath. The catheter is ready for immediate use. Thank you this referral. Electronically Signed by Mercy Chan MD 09/22/2019 07:40 A
== END ==
LOC: M IRPRO 13:13
PROVIDERS: ATTEND Internal Medicine Nephrology
DX: Z45.2 Encounter for adjustment and management of vascular access device (principal); N18.6 End stage renal disease; Z88.7 Allergy status to serum and vaccine; Z91.041 Radiographic dye allergy status; Z91.048 Other nonmedicinal substance allergy status; Z79.899 Other long term (current) drug therapy
CPT/HCPCS: 36581; J1200; Q9967 ×2; J2250; J3010; C1750; C1769; 99152; 99153

== ENCOUNTER 2019-09-27 08:07 | Outpatient (CLI) | payer MEDICARE ==
[2019-09-27] VITALS (8 sets, daily range): BP systolic 100–116; BP diastolic 49–61
[~2019-09-27] VITALS: Ht 154.9 cm; Wt 90.5 kg
[~2019-09-27 08:07] MED LIST changes: -HEPARIN 1,000 UNITS/ML 10ML VIAL (FOR RADIOLOGY& DIALYSIS ONLY) As Ordered ONE; -ISOVUE-300 61% 50ML VIAL (Q9967) As Ordered ONE; -LIDOCAINE 1% MDV 20ML VIAL As Ordered ONE; -MIDAZOLAM INJ 2 MG/2 ML VIAL (J2250) As Ordered ONE; -OXYC1TAB23 PO; -diphenhydrAMINE INJ 50MG/ML VIAL (J1200) As Ordered ONE; -fentaNYL 100 MCG/2 ML INJECTION (J3010) As Ordered ONE
[2019-09-27] MEDS ORDERED: ACETAMINOPHEN 325 MG TAB PO ONE (08:15)
[2019-09-27] MEDS ORDERED: OXYC1TAB23 PO (08:42)
[2019-09-27] MEDS ORDERED: NEUR300C PO (08:48)
[2019-09-27] MEDS ORDERED: BASA100I SC (08:49)
[2019-09-27] MEDS ORDERED: DIGO0.123 PO (08:50)
== END 2019-09-27 13:45 | disposition home or self-care (01) ==
LOC: M INFU 08:07
PROVIDERS: ATTEND Internal Medicine Nephrology
DX: N18.9 Chronic kidney disease, unspecified (principal); D63.1 Anemia in chronic kidney disease; Z88.7 Allergy status to serum and vaccine; Z91.041 Radiographic dye allergy status; Z91.048 Other nonmedicinal substance allergy status
CPT/HCPCS: 36415; 36430; 86850; 86900; 86901; 86920; P9016

== ENCOUNTER → 2019-10-04 | Outpatient (REF) | payer MEDICARE ==
[~2019-10-04] MED LIST changes: +OXYC1TAB23 PO
[2019-10-04 18:41] LABS: APPEARANCE, URINE CLOUDY (CLEAR); BACTERIA, URINE AUTO 1+ (NEGATIVE); BILIRUBIN, URINE AUTO NEGATIVE (NEGATIVE); BLOOD, URINE BLOOD 1+ (NEGATIVE); COLOR, URINE YELLOW (YELLOW); GLUCOSE, URINE (UA) AUTO 1+ mg/dL (NEGATIVE); KETONE, URINE AUTO NEGATIVE (NEGATIVE); LEUKOCYTE ESTERASE, URINE AUTO 1+ (NEGATIVE); MUCUS, URINE SMALL (NEGATIVE); NITRITE, URINE AUTO NEGATIVE (NEGATIVE); PROTEIN, URINE AUTO 2+ mg/dL (NEGATIVE); RBC, URINE AUTO 1 /HPF (0-3); SPECIFIC GRAVITY URINE AUTO 1.014 (1.002-1.035); SQUAMOUS EPITHELIAL CELL UR AU 7 /HPF (0-6); UROBILINOGEN, URINE AUTO 0.2 mg/dL (0.0-2.0); WBC, URINE AUTO 48 /HPF (0-3)
== END ==
LOC: M LAB REF 17:02
PROVIDERS: ATTEND Internal Medicine Nephrology
DX: E11.22 Type 2 diabetes mellitus with diabetic chronic kidney disease (principal); R33.9 Retention of urine, unspecified; Z87.440 Personal history of urinary (tract) infections

== ENCOUNTER 2019-10-10 15:57 | Inpatient (IN) | payer MEDICARE ==
[~2019-10-10] VITALS: Ht 154.9 cm; Wt 99.4 kg
[2019-10-10] MEDS ORDERED: ONDA8TAB8 SL (16:40)
[2019-10-10] MEDS ORDERED: OXYC10TA12 PO (16:40)
[2019-10-10] MEDS ORDERED: TOPR25TA PO (16:40)
[2019-10-10] MEDS ORDERED: DEXTROSE 50% 50 ML SYRINGE IV STA ×2 (16:55→18:41)
[2019-10-10 17:13] LABS: HEMATOCRIT 29.5 % (36.0-47.0); MEAN CORPUSCULAR HEMOGLOBIN 29.5 pg (27.0-33.0); MEAN CORPUSCULAR HGB CONC 30.5 g/dl (32.0-36.5); MEAN CORPUSCULAR VOLUME 96.7 fl (80.0-96.0); PLATELET COUNT, AUTOMATED 142 10^3/uL (150-450); RED BLOOD COUNT 3.05 10^6/uL (4.00-5.40); WHITE BLOOD COUNT 15.8 10^3/uL (4.0-10.0)
[2019-10-10 17:40] LABS: CALCIUM LEVEL 8.4 MG/DL (8.8-10.2); CREATININE FOR GFR 4.35 MG/DL (0.55-1.30); GLOMERULAR FILTRATION RATE 10.8 (>45); POTASSIUM SERUM 4.2 MEQ/L (3.5-5.1)
[2019-10-10] MEDS ORDERED: ELIQ2.5T PO (19:51)
[2019-10-10] MEDS ORDERED: RENV2TAB PO (19:51)
[2019-10-10] MEDS: D10W/0.45% SODIUM CHLORIDE 1,000 ML IV SCH (19:59)
[2019-10-10] MEDS ORDERED: ALBU83IN INH (20:00)
[2019-10-10] MEDS ORDERED: OCUVTAB4 PO (20:00)
[2019-10-10] MEDS ORDERED: ACET1TAB55 PO (20:00)
[2019-10-10] MEDS ORDERED: FLOM0.4C39 PO (20:00)
[2019-10-10] MEDS ORDERED: ONDANSETRON 4 MG ORAL DISINTEGRATING TAB (Q0162 PER 1MG) SL PRN (20:30)
[2019-10-10] MEDS ORDERED: GLUCAGON FOR INJ 1 MG VIAL (J1610) SC PRN (20:45)
[2019-10-10] MEDS ORDERED: DEXTROSE 50% 50 ML SYRINGE IV PRN (20:45)
[2019-10-10] MEDS ORDERED: GLUCOSE 4 GM CHEW TABLET PO PRN (20:45)
[2019-10-10] MEDS: oxyCODONE 5MG TAB PO SCH (21:35)
[2019-10-10] MEDS: APIXABAN 2.5 MG TAB (ELIQUIS) PO SCH (21:35)
[2019-10-10] MEDS: GABAPENTIN 300 MG CAP PO SCH (21:35)
[2019-10-10 22:38] VITALS: BP 141/65
[2019-10-10] MEDS: DOCUSATE SODIUM 100 MG CAP PO SCH (23:05)
[2019-10-10] MEDS: ACETAMINOPHEN TAB 650MG DOSE (2X325MG) PO PRN (23:07)
[2019-10-10] MEDS ORDERED: SLF 3 ML SYR IV PRN (23:15)
[2019-10-11] VITALS (9 sets, daily range): BP systolic 118–177; BP diastolic 59–67
[2019-10-11] MEDS: LATANOPROST 0.005% OPHTH SOLN 2.5 ML OU SCH ×2 (00:51→20:44)
[2019-10-11] MEDS: OCUVITE 1 TAB PO SCH ×3 (00:52→20:24)
[2019-10-11] MEDS: oxyCODONE 5MG TAB PO SCH ×6 (01:14→20:25)
--- NOTE | 2019-10-11 02:34 | HPEPDOC ---
General Date of Admission Oct 10, 2019 at 20:41 Date of Service: Oct 10, 2019 Attending Physician: KIAN BENITES MD Chief Complaint The patient is a 69-year-old female admitted with a reason for visit of Chf,Esrd On Dialysis, Hypoglycemia. 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 Of note, HD was not completed because of need to transfer to the ED for evaluation, per patient. In the ED, she was hemodynamically stable and afebrile while saturating well on room air reporting that her PO intake has been poor due to poor appetite and concerned that her insulin regimen may require adjusting as she is not consuming much food recently and is worried about that with some expression of confusion about the correction short acting insulin. She otherwise denied any recent fevers, chills, nausea, emesis, falls, diarrhea, abdominal pain, chest pain or recent weight loss. Work up in the ED showed WBC 15.8, baseline anemia to hgb 9, hct 29.5, platelets 142, Na 136, K 4.2. Her initial glucose per ED provider was 21 for which she was given 1 amp of D50 with improvement to low 100s but returned to 60s and 70s and was started on D10NS and is now being admitted to medicine for persistent symptomatic hypoglycemia. Home Medications Scheduled Allopurinol (Allopurinol) 100 Mg Tablet, 100 MG PO DAILY, (Reported) Apixaban (Eliquis) 2.5 Mg Tablet, 2.5 MG PO BID, (Reported) Cetirizine HCl (Cetirizine HCl) 10 Mg Tablet, 10 MG PO DAILY, (Reported) Digoxin (Digoxin) 125 Mcg Tablet, 125 MCG PO 3XW, (Reported) MON/THU/FRI Docusate Sodium (Colace) 100 Mg Cap, 100 MG PO BID, (Reported) Fluticasone Propionate (Flonase Allergy Relief) 50 Mcg/Act Spr, 1 SPRAY NARES DAILY, (Reported) Gabapentin (Neurontin) 300 Mg Capsule, 300 MG PO QHS, (Reported) Insulin (Humulin R U-500) 1 Units/0.002 Ml Inj, 1 DOSE SC AC, (Reported) Insulin Glargine,Hum.rec.anlog (Basaglar Kwikpen U-100) 100 Unit/1 Ml Insuln.pen, 70 UNIT SC QAM, (Reported) L.acidoph/L.bulg/B.bif/S.therm (Letty-Bid Caplet) 1 Each Tablet, 1 TAB PO WM, (Reported) Latanoprost (Xalatan) 0.005% 2.5ML Drops, 1 DROP OU QHS, (Reported) Metoprolol Succinate (Toprol Xl) 25 Mg Tab.er.24h, 25 MG PO DAILY, (Reported) Montelukast Sodium (Montelukast Sodium) 10 Mg Tab, 10 MG PO DAILY, (Reported) Oxycodone HCl (Oxycodone HCl) 10 Mg Tablet, 10 MG PO Q4H, (Reported) Pantoprazole Sodium (Pantoprazole Sodium) 40 Mg Tablet.dr, 40 MG PO DAILY, (Reported) Sevelamer Carbonate (Renvela) 800 Mg Tablet, 800 MG PO WM, (Reported) Tamsulosin HCl (Flomax) 0.4 Mg Capsule, 0.4 MG PO DAILY, (Reported) Vit A/Vit C/Vit E/Zinc/Copper (Preservision Areds Tablet) 1 Each Tablet, 1 TAB PO BID, (Reported) Scheduled PRN Acetaminophen (Acetaminophen) 325 Mg Tablet, 650 MG PO Q6H PRN for PAIN, (Reported) Albuterol Sulf (Albuterol Sulfate) 2.5 Mg/3 Ml Vial.neb, 2.5 MG INH Q8H PRN for SHORTNESS OF BREATH, (Reported) Albuterol Sulfate (Ventolin Hfa) 18 Gm Hfa.aer.ad, 2 PUFF INH Q4H PRN for SHORTNESS OF BREATH, (Reported) Ammonium Lactate (Ammonium Lactate) 12 % Cre, 1 APPLIC TOP BID PRN for ITCHING, (Reported) APPLY TO FEET Ondansetron (Ondansetron Odt) 8 Mg Tab.rapdis, 8 MG SL TID PRN for NAUSEA OR VOMITING, (Reported) Allergies Coded Allergies: TAPE (Verified Allergy, Intermediate, reddness swelling, 04/26/19) tetanus immune globulin (Verified Allergy, Intermediate, SWELLING, 04/26/19) Contrast Media (Verified Adverse Reaction, Intermediate, kidney failure, 04/26/19) Uncoded Allergies: BLOOD PRESSURE CUFF (Adverse Reaction, Unknown, ITCHING/SWELLING, 10/10/19) Past Medical History Medical History per HPI Surgical History AICD, tonsillectomy and adenoidectomy, umbilical hernia repair, RUE fistula Family History Diabetes & cardiac disorders Social History * Smoker: Denies Alcohol: Denies Drugs: denies Recent Travel/Sick Contacts: Denies: Recent travel, Recent sick contacts Lives with her very supportive . 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 Dyspnea, Lt Headedness Gastrointestinal: Denies: Nausea, Vomiting, Abdominal Pain, Diarrhea Genitourinary: Denies: Dysuria, Frequency, Incontinence, Retention Hematologic: Denies: Bruising, Bleeding Excessively Endocrine: Denies: Polydipsia, Polyphagia, Polyuria, Heat Intolerance, Cold Intolerance, Other Endocrine Sx Musculoskeletal: Denies: Neck Pain, Back Pain, Joint Pain, Muscle Pain, Spasms Neurological: Reports: Confusion Psych: Reports: Mood Normal; Denies: Depression, Memory Issues Physical Examination General Exam: Positive: Alert, No Acute Distress, Other (morbidly obese) Eye Exam: Positive: PERRLA, Conjunctiva & lids normal, EOMI; Negative: Sclera icteric ENT Exam: Positive: Atraumatic, Mucous membr. moist/pink, Pharynx Normal Neck Exam: Positive: Supple; Negative: JVD, thyromegaly Chest Exam: Positive: Clear to auscultation, Normal air movement Heart Exam: Positive: Rate Normal, Regular Rhythm, Normal S1, Normal S2; Negative: Murmurs, Rubs Abdomen Exam: Positive: Normal bowel sounds, Soft, Tenderness, Other (obese with large pannus with bilateral -lateral pannus fold wounds with dressings in place) Extremity Exam: Positive: Edema (Dependent 2+ pitting bilateral LE edema to subknees), Normal pulses; Negative: Clubbing, Cyanosis Skin Exam: Positive: Nl turgor and temperature, Lesion (Abdominal pannus fold wounds on either lateral side with dressings in place); Negative: Breakdown Neuro Exam: Positive: Normal Speech, Strength at 5/5 X4 ext, Cranial Nerves 3- 12 NL Psych Exam: Positive: Mental status NL, Mood NL, Oriented x 3 Vital Signs Vital Signs Date Time Temp Pulse Resp B/P (MAP) Pulse Ox O2 Delivery O2 Flow Rate FiO2 10/11/19 01:14 18 10/11/19 00:00 97.4 70 129/65 (86) 100 Room Air Laboratory Data Labs 24H Laboratory Tests 2 10/10/19 16:26: Bedside Glucose (Misc Panel) 32*L 10/10/19 17:00: Nucleated Red Blood Cells % (auto) 0.0, Anion Gap 11, Glomerular Filtration Rate 10.8L, Calcium Level 8.4L 10/10/19 17:33: Bedside Glucose (Misc Panel) 115 10/10/19 18:39: Bedside Glucose (Misc Panel) 78L 10/10/19 19:28: Bedside Glucose (Misc Panel) 104 10/10/19 22:12: Bedside Glucose (Misc Panel) 66L 10/11/19 00:17: Bedside Glucose (Misc Panel) 41L 10/11/19 00:56: Bedside Glucose (Misc Panel) 56L 10/11/19 01:18: Bedside Glucose (Misc Panel) 71L CBC/BMP Laboratory Tests 10/10/19 17:00 Assessment/Plan 69-year-old W with dCHF, Afib, COPD, DM, ESRD on dialysis who presented for HD with AMS and noted profound hypoglycemia now being admitted for persistent hypoglycemia. AMS: Somnolent and disoriented and found to be hypoglycemic to the 20s and improved with glucose and normalization of glucose. C/F unintentional insulin overdose vs. poor PO while on baseline dosages and will require adjustment. -for now will continue D10NS with FSBG Q2H and hypoglycemia protocol -hold all insulin at this time until hypoglycemia resolves -consistent carb, 2g sodium diet DM: with ongoing hypoglycemia -As noted above, hold insulin regimen, continue FSBG Q2H until hypoglycemia resolved while on D10NS and hypoglycemia protocol -Will require readjustment of insulin home regimen per trends noted inpatient with close PCP follow up Diastolic CHF -c/w 1500cc fluid restriction -Volume management by HD, will consult nephrology ESRD on HD -Nephrology consulted -continue renvela Afib: /sp PPM/AICD, c/w toprol and eliquis 2.5 BID HLD: continue home statin COPD with hypoventilation syndrome: continue montelukast, duones, PRN albuterol and supplemental 02 goal 88-92% DEEDEE: on CPAP anemia of chronic disease: Aranesp and iron per renal Skin: abdominal skin fold calciphilaxis, followed by Dr Hickman, consult placed? was not sure how to place telemedicine consult for recs? WILL DEFER TO DAY TEAM Pain: continue home pain meds, monitor for altered mental status or respiratory decline GI ppx: protonix DVT ppx: on Eliquis, TEDs Plan / VTE VTE Prophylaxis Ordered?: Yes KIAN BENITES MD Oct 11, 2019 02:34
[2019-10-11 05:34] LABS: HEMATOCRIT 24.3 % (36.0-47.0); HEMOGLOBIN 7.3 g/dl (12.0-15.5); MEAN CORPUSCULAR HEMOGLOBIN 29.2 pg (27.0-33.0); MEAN CORPUSCULAR VOLUME 97.2 fl (80.0-96.0); PLATELET COUNT, AUTOMATED 109 10^3/uL (150-450); WHITE BLOOD COUNT 8.8 10^3/uL (4.0-10.0)
[2019-10-11 06:01] LABS: CREATININE FOR GFR 4.53 MG/DL (0.55-1.30); GLOMERULAR FILTRATION RATE 10.3 (>45); MAGNESIUM LEVEL 1.8 MG/DL (1.8-2.4); POTASSIUM SERUM 4.4 MEQ/L (3.5-5.1)
[2019-10-11] MEDS: SLF 3 ML SYR IV SCH ×3 (06:21→20:44)
[2019-10-11] MEDS: FLUTICASONE PROP 0.05% NASAL SPRAY 16 GM (FLONASE) NARES SCH (08:11)
[2019-10-11] MEDS: ACETAMINOPHEN TAB 650MG DOSE (2X325MG) PO PRN ×2 (08:12→22:30)
[2019-10-11] MEDS: MONTELUKAST 10 MG TAB PO SCH (08:12)
[2019-10-11] MEDS: CETIRIZINE (ZyrTEC) 10 MG TAB PO SCH (08:12)
[2019-10-11] MEDS: allopurinoL 100 MG TAB PO SCH (08:12)
[2019-10-11] MEDS: APIXABAN 2.5 MG TAB (ELIQUIS) PO SCH ×2 (08:12→20:24)
[2019-10-11] MEDS: (RENVELA) SEVELAMER **CARBONate** 800 MG TAB PO SCH ×3 (08:12→17:42)
[2019-10-11] MEDS: TAMSULOSIN 0.4 MG CAP PO SCH (08:12)
[2019-10-11] MEDS: LACTOBACILLUS ACIDOPHILUS CAP (BACID) PO SCH ×3 (08:12→17:42)
[2019-10-11] MEDS: METOPROLOL SUCC *XL* 25MG TAB (TopROL *XL*) PO SCH (08:13)
[2019-10-11] MEDS: DOCUSATE SODIUM 100 MG CAP PO SCH ×2 (08:13→20:24)
[2019-10-11] MEDS: D10W/0.45% SODIUM CHLORIDE 1,000 ML IV SCH (08:16)
[2019-10-11] MEDS: PANTOPRAZOLE 40MG TAB (PROTONIX) PO SCH (08:16)
[2019-10-11] MEDS ORDERED: DARBEPOETIN 100 MCG/0.5 ML *DIALYSIS* SYRINGE (J0882) IV SCH (10:45)
[2019-10-11 11:15] LABS: PERCENT SATURATION 18.5 % (13.2-45.0)
--- NOTE | 2019-10-11 11:56 | IPNPDOC ---
Subjective Date Seen The patient was seen on 10/11/19. Subjective Chief Complaint/HPI Pt this morning states that she is doing about the same as usual. She has pain in her bottom whichj has been ongoing. Pt was seen in the dialysis unit. She ate well this morning and is concerned that she is in dialysis now when it is almost lunch time. General: Reports: Fatigue Constitutional: Denies: Chills, Fever ENT: Denies: Head Aches Pulmonary: Reports: Dyspnea; Denies: Cough Gastrointestinal: Denies: Nausea, Vomiting Neurological: Denies: Weakness Psych: Reports: Mood Normal Objective Physical Examination General Exam: Positive: Alert, No Acute Distress, Other (morbidly obese) ENT Exam: Positive: Mucous membr. moist/pink Neck Exam: Positive: Supple; Negative: JVD, thyromegaly Chest Exam: Positive: Clear to auscultation, Diminished Heart Exam: Positive: Rate Normal, Regular Rhythm, Normal S1, Normal S2; Negative: Murmurs, Rubs Abdomen Exam: Positive: Normal bowel sounds, Soft, Tenderness, Other (obese with large pannus with bilateral -lateral pannus fold wounds with dressings in place) Extremity Exam: Positive: Edema (Dependent 2+ pitting bilateral LE edema to subknees), Normal pulses Skin Exam: Positive: Lesion (Abdominal pannus fold wounds on either lateral side with dressings in place); Negative: Breakdown Neuro Exam: Positive: Normal Speech Psych Exam: Positive: Mental status NL, Mood NL, Oriented x 3 Assessment /Plan Problems (1) Hypoglycemia associated with type 2 diabetes mellitus Status: Resolved Response to Treatment: Stable Discussed With: Nurse, Patient Problem Specific Plan: Monitor Clinically, Repeat Labs Problem Text: Pt admitted with hypoglycemia, symptoms have resolved and glu has stabilized, she is tolerating PO, D10 DC'd. anticipate DC in AM if safe per PT. 10/11/19 1559 BG 128 (no insulin this admission-last glar 70 at 700 10/10 which caused a hypo to 48 at 1600 10/1110/10/19 A1C 5.1! too tight of control HD glar 70 QHS c SS AC TID U-500 (taking ~50 units of U-100 equivalent ~1x daily) favor shorter basal that will not overlap-like detemir and change U-500 SS to glulisine SS (2) ESRD (end stage renal disease) on dialysis Status: Chronic Response to Treatment: Stable Problem Text: dialysis today, (3) Physical deconditioning Status: Chronic Response to Treatment: Stable (4) DEEDEE (obstructive sleep apnea) Status: Chronic Response to Treatment: Stable (5) Stage III skin ulcer Status: Chronic Response to Treatment: Stable Problem Text: had outpx apt c Stillerman to debride today-no s/s superinfection-RS at dc Plan/VTE VTE Prophylaxis Ordered?: Yes VS, I&O, 24H, Fishbone Vital Signs/I&O Vital Signs Date Time Temp Pulse Resp B/P (MAP) Pulse Ox O2 Delivery O2 Flow Rate FiO2 10/11/19 10:58 18 Room Air 10/11/19 08:13 80 139/59 10/11/19 07:42 98.0 94 I&O- Last 24 Hours up to 6 AM 10/11/19 06:00 Intake Total 1000 ml Output Total 0 ml Balance 1000 ml Laboratory Data 24H LABS Laboratory Tests 2 10/10/19 16:26: Bedside Glucose (Misc Panel) 32*L 10/10/19 17:00: Nucleated Red Blood Cells % (auto) 0.0, Anion Gap 11, Glomerular Filtration Rate 10.8L, Calcium Level 8.4L 10/10/19 17:33: Bedside Glucose (Misc Panel) 115 10/10/19 18:39: Bedside Glucose (Misc Panel) 78L 10/10/19 19:28: Bedside Glucose (Misc Panel) 104 10/10/19 22:12: Bedside Glucose (Misc Panel) 66L 10/11/19 00:17: Bedside Glucose (Misc Panel) 41L 10/11/19 00:56: Bedside Glucose (Misc Panel) 56L 10/11/19 01:18: Bedside Glucose (Misc Panel) 71L 10/11/19 01:58: Bedside Glucose (Misc Panel) 90 10/11/19 02:58: Bedside Glucose (Misc Panel) 130H 10/11/19 04:07: Bedside Glucose (Misc Panel) 148H 10/11/19 05:00: Nucleated Red Blood Cells % (auto) 0.2H, Anion Gap 11, Glomerular Filtration Rate 10.3L, Calcium Level 8.0L, Magnesium Level 1.8, Iron Level 32L, Total Iron Binding Capacity 173L, Transferrin % Saturation 18.5, Ferritin 575H 10/11/19 06:12: Bedside Glucose (Misc Panel) 147H 10/11/19 07:59: Bedside Glucose (Misc Panel) 112 10/11/19 10:21: Bedside Glucose (Misc Panel) 116H CBC/BMP Laboratory Tests 10/10/19 17:00 10/11/19 05:00 AZRA LOPEZ PA-C Oct 11, 2019 11:56 Will Steiner M.D. Oct 11, 2019 17:04
[2019-10-11] MEDS ORDERED: HEPARIN 1,000 UNITS/ML 10ML VIAL (FOR RADIOLOGY& DIALYSIS ONLY)(J1644-10) XX ONE (13:00)
[2019-10-11] MEDS ORDERED: IRON SUCROSE 100MG 5ML VIAL (J1756 PER 1MG) IV SCH (15:00)
[2019-10-11 15:51] LABS: HEMOGLOBIN A1c 5.1 %
--- NOTE | 2019-10-11 19:34 | CR ---
DATE OF CONSULTATION: 10/11/2019 REQUESTING PHYSICIAN: Dr. Covington CONSULTING PHYSICIAN: Dr. Kinney REASON FOR CONSULTATION: Management of end-stage renal disease, on hemodialysis. HISTORY OF PRESENT ILLNESS: Ms. Vargas is very well known to me from the outpatient hemodialysis unit and from previous hospitalizations. She is a 69-year-old female with a past medical history of end-stage renal disease, on hemodialysis since 2019 on a Thursday, , Thursday schedule, history of calciphylaxis, anemia of chronic disease, atrial fibrillation status post pacemaker/automatic implantable cardioverter-defibrillator (AICD), diastolic congestive heart failure, morbid obesity, hypertension, obstructive sleep apnea, insulin-dependent diabetes, chronic obstructive pulmonary disease (COPD), and other comorbid conditions mentioned below. The patient came today hemodialysis unit on Thursday for an extra ultrafiltration session because of recent significant hypervolemia and fluid overload. In the hemodialysis unit she was somnolent and altered, and fingerstick was found to be low at 21. She was given an amp of dextrose 50%, and she was found to still be poorly alert, and she was subsequently transferred to the emergency room for further evaluation and management. In the emergency room she was found to be hemodynamically stable and afebrile. She reported that she has been having poor oral intake due to decreased appetite, and she complains of pain at her areas of calciphylaxis. She also complains of increasing leg edema. She denies fevers and chills. Workup in the emergency room showed leukocytosis, anemia. Her blood sugar on arrival was low at 32, improved to 115 but again fell into the 40s, and the patient was admitted for persistent hypoglycemia and started on a dextrose 10% normal saline drip. Nephrology service was called for help in the management of her chronic renal failure. PAST MEDICAL AND SURGICAL HISTORY: 1. End-stage renal disease, on hemodialysis. 2. Right arm fistula. 3. Perm-A-Cath placement. 4. Perm-A-Cath exchange. 5. Calciphylaxis. 6. Anemia of chronic renal failure. 7. Atrial fibrillation, status post pacemaker and AICD. 8. Diastolic congestive heart failure. 9. Morbid obesity. 10. Fatty liver. 11. Hypertension. 12. Obstructive sleep apnea (DEEDEE), on continuous positive airway pressure (CPAP). 13. 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 14. COPD. 15. Obesity hypoventilation syndrome, dependent on 2 liters nasal cannula. 16. Psoriasis. 17. History of gastrointestinal (GI) bleed. 18. Status post tonsillectomy and adenoidectomy. 19. Umbilical hernia repair. ALLERGIES Tape, Tetanus, IMMUNOGLOBULIN, contrast media. FAMILY HISTORY: Diabetes and heart disease. SOCIAL HISTORY: Lives with her . Denies smoke or smoking, alcohol, or drugs. 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 HOME MEDICATIONS: - allopurinol 100 mg by mouth daily - Eliquis 2.5 mg by mouth twice a day - Zyrtec 10 mg by mouth daily - digoxin 125 mcg three times a week - docusate 100 mg by mouth twice a day - Flonase - Neurontin 300 mg by mouth at bedtime - insulin - Letty-Bid caplet, one tablet with each meal - Toprol-XL 25 mg by mouth daily - montelukast 10 mg by mouth daily - oxycodone 10 mg by mouth every 4 hours - Protonix 40 mg by mouth daily - Renvela 800 mg by mouth with meals - Flomax 0.4 mg by mouth daily - albuterol as needed - Zofran as needed REVIEW OF SYSTEMS: CONSTITUTIONAL: She denies fevers and chills. She reports weakness and lethargy. EYES: She denies vision changes or tearing. ENT: She denies epistaxis or rhinorrhea. SKIN: She reports calciphylaxis on the lower abdominal region. She denies any other rashes or ulcers. CARDIAC: She has a history of diastolic heart failure. She reports increased leg edema. PULMONARY: She reports chronic oxygen dependence, sleep apnea, and obesity hypoventilation syndrome. GASTROINTESTINAL: She reports poor appetite. She reports occasional nausea. She denies diarrhea. GENITOURINARY: Makes a little bit of urine. Denies dysuria or hematuria. HEMATOLOGIC: She reports anemia of chronic renal failure and chronic anticoagulant use. ENDOCRINE: She reports insulin-dependent diabetes and secondary hyperparathyroidism of renal origin. MUSCULOSKELETAL: She reports poor ambulation and denies any acute myalgias or arthralgias. NEUROLOGIC: She denies seizure or syncope. PSYCHIATRIC: She denies depression or anxiety. Remainder review of systems is negative or as per history of present illness (HPI). PHYSICAL EXAMINATION VITAL SIGNS: Temperature 96.2, pulse 71, respiratory rate 18, blood pressure 162/61, saturating 94% on room air. Intake yesterday was not recorded. Goal fluid removal today with dialysis will be 3 liters. GENERAL: The patient is seen in the hemodialysis unit awake, alert, oriented times three. interactive, conversational in no apparent distress, morbidly obese female. Extraocular muscles are intact. Tongue is moist. Jugular veins could not be assessed secondary to body habitus. HEART: Sounds are regular. There is 2+ leg edema bilaterally. LUNGS: There is distant breath sounds. There is symmetric air movement. There are no audible crackles. She is seen on nasal cannula. ABDOMEN: Soft and obese. Large pannus. The calciphylactic areas have dressings on them, which were not removed. EXTREMITIES: There is a patent but immature fistula in the right forearm. There is 2+ pitting edema in the lower extremities. NEUROLOGIC: She is oriented times three and interactive and conversational at baseline mentation. PSYCHIATRIC: Appropriate mood and effect. DIALYSIS ACCESS: Her Perm-A-Cath in the right chest wall is presently in use. LABORATORY DATA Glucose 116, sodium 136, potassium 4.4. Hemoglobin 7.3, white count 8.8. Iron 32, total saturation 18%. INPATIENT MEDICATIONS: - Tylenol as needed - allopurinol 100 mg by mouth daily - Eliquis 2.5 mg by mouth twice a day - Zyrtec 10 mg by mouth daily - D50 as needed - Aranesp 200 mcg with dialysis - digoxin 0.125 mg by mouth 3 days a week - docusate 100 mg by mouth twice a day - gabapentin 300 mg by mouth at bedtime - Bacid one tablet with meal - metoprolol 25 mg by mouth daily - Zofran as needed - oxycodone 10 mg by mouth every 4 hours - Protonix 40 mg by mouth daily - Renvela 800 mg by mouth with meal - Flomax 0.4 mg by mouth daily PROBLEMS: 1. End-stage renal disease, on hemodialysis on a Thursday, , Thursday schedule. The patient is volume overloaded. She was actually in the hemodialysis unit as an outpatient on Thursday for an extra treatment because of significant edema when she was found to be altered and somnolent with persistent hypoglycemia and transferred to the emergency room. She was dialyzed today with 3 liters of fluid removed. I will try to arrange for extra hemodialysis treatments while she is here because of her volume overload. Her fistula in the right arm was placed about a month ago and patent but immature. Her Perm-A-Cath is presently in use. 2. Anemia related to chronic renal failure and iron deficiency. Hemoglobin was low at 7.3. Some of it may be hemodilutional given her fluid overload; however, I did transfuse 1 unit with dialysis today, and she is started on Aranesp and on Venofer with dialysis as well. Goal hemoglobin is 10-11. 3. Diastolic congestive heart failure. The patient is fluid overloaded. We dialyzed her today with 3 liters of fluid to be removed. I would plan to do extra dialysis treatments while she is here. She should be on a 1500 mL fluid restriction. I would also get a repeat echo to make sure that there is no recurrent pericardial effusion, as the patient does have a history of pericardial effusion in the recent past. 4. Insulin-dependent diabetes mellitus with hypoglycemia. It is likely due to excessive insulin use and renal failure. The half life of insulin is increased in renal failure. She was treated with dextrose 10% infusion, and her fingersticks have subsequently improved. Her home insulin regimen needs to be adjusted. Her A1c was 5.9% in August of last year, and I am adding on an A1c to today's labs. 5. Atrial fibrillation status post pacemaker. She is on low-dose Eliquis anticoagulation and rate controlled with beta donna and digoxin. 6. Calciphylaxis. The patient should continue to receive wound care while she is in the hospital. Recommend telephone consult with Dr. Hickman. It is an exquisitely painful process, and she continues on her chronic opioids. Thank you for involving me in the care of Ms. Vargas. I will be happy to follow her along with you.
[2019-10-11] MEDS: GABAPENTIN 300 MG CAP PO SCH (20:24)
[2019-10-12] VITALS (8 sets, daily range): BP systolic 95–131; BP diastolic 54–60
[2019-10-12] MEDS: oxyCODONE 5MG TAB PO SCH ×6 (01:00→21:00)
[2019-10-12] MEDS: SLF 3 ML SYR IV SCH ×3 (05:34→21:01)
[2019-10-12 05:51] LABS: HEMATOCRIT 26.4 % (36.0-47.0); HEMOGLOBIN 8.1 g/dl (12.0-15.5); MEAN CORPUSCULAR HEMOGLOBIN 29.5 pg (27.0-33.0); MEAN CORPUSCULAR HGB CONC 30.7 g/dl (32.0-36.5); PLATELET COUNT, AUTOMATED 118 10^3/uL (150-450); RED BLOOD COUNT 2.75 10^6/uL (4.00-5.40); WHITE BLOOD COUNT 8.1 10^3/uL (4.0-10.0)
[2019-10-12 06:09] LABS: CALCIUM LEVEL 8.1 MG/DL (8.8-10.2); CREATININE FOR GFR 3.38 MG/DL (0.55-1.30); GLOMERULAR FILTRATION RATE 14.4 (>45); POTASSIUM SERUM 4.6 MEQ/L (3.5-5.1)
[2019-10-12] MEDS: LACTOBACILLUS ACIDOPHILUS CAP (BACID) PO SCH ×3 (07:50→17:07)
[2019-10-12] MEDS: TAMSULOSIN 0.4 MG CAP PO SCH (07:50)
[2019-10-12] MEDS: PANTOPRAZOLE 40MG TAB (PROTONIX) PO SCH (07:50)
[2019-10-12] MEDS: (RENVELA) SEVELAMER **CARBONate** 800 MG TAB PO SCH ×3 (07:50→17:08)
[2019-10-12] MEDS: OCUVITE 1 TAB PO SCH ×2 (07:50→20:59)
[2019-10-12] MEDS: MONTELUKAST 10 MG TAB PO SCH (07:50)
[2019-10-12] MEDS: CETIRIZINE (ZyrTEC) 10 MG TAB PO SCH (07:50)
[2019-10-12] MEDS: APIXABAN 2.5 MG TAB (ELIQUIS) PO SCH ×2 (07:51→21:00)
[2019-10-12] MEDS: allopurinoL 100 MG TAB PO SCH (07:51)
[2019-10-12] MEDS: DOCUSATE SODIUM 100 MG CAP PO SCH ×2 (07:51→20:59)
[2019-10-12] MEDS: METOPROLOL SUCC *XL* 25MG TAB (TopROL *XL*) PO SCH (07:51)
[2019-10-12] MEDS: FLUTICASONE PROP 0.05% NASAL SPRAY 16 GM (FLONASE) NARES SCH (07:52)
[2019-10-12] MEDS ORDERED: DIGOXIN 0.125 MG TAB PO SCH (09:00)
[2019-10-12] MEDS: SANTYL OINT 30GM TOP SCH (09:00)
[2019-10-12] MEDS ORDERED: HEPARIN 1,000 UNITS/ML 10ML VIAL (FOR RADIOLOGY& DIALYSIS ONLY)(J1644-10) XX ONE (14:15)
--- NOTE | 2019-10-12 15:20 | ECHO ---
DATE OF STUDY: 10/12/2019 AGE: 69 GENDER: Female. HEIGHT: 61 inches. WEIGHT: 220 pounds. BODY SURFACE AREA: 1.97 sq m Inpatient, progressive care unit (PCU), room 3211. REFERRING PHYSICIAN: Dr. Idris Kinney INDICATION: Pericardial effusion. MEASUREMENTS: 2D MEASUREMENTS: RV: 4.2 cm LV: 4.5 cm Septum: 1.2 cm Posterior wall: 1.2 cm Aortic root: 3.0 cm LA: 4.2 cm LVEF: 65% DOPPLER MEASUREMENTS: AV: 3.24 m/s LVOT: 0.95 m/s LVOT diameter: 1.7 cm Mean systolic gradient: 24 mmHg Dimensionless index: 0.36 MV-E: 103 A: 128 E/A ratio: 0.8 Early mitral deceleration time: 236 ms E prime medial: 7.2 A prime medial: 9.5 E prime lateral: 9.9 Average E/E prime ratio: 12 / PCWP - 16.8 PV: 1.2 m/s Pulmonary artery acceleration time: 100 ms RVSP: 37 mmHg Inferior vena cava: 1.2 cm COMMENTS: Underlying sinus rhythm with atrial sensing and tracking with consistent ventricular pacing. The patient has a biventricular implantable cardioverter-defibrillator (ICD) in situ. Somewhat technically challenging in light of the patient's body habitus, but diagnostically useful information was still obtained. M-mode and two-dimensional echocardiography was performed with pulsed, continuous wave, color flow and tissue Doppler studies. Borderline concentric left ventricle hypertrophy with normal wall motion. Mildly dilated left atrium with grade 1 left ventricular (LV) diastolic dysfunction and mildly elevated estimated mean left atrial pressure. Mildly dilated right heart chambers with normal motion and Doppler evidence of mild pulmonary hypertension. Normal inferior vena cava (IVC) size and collapse against an elevated central venous pressure. Mild - moderate calcific aortic stenosis with mild insufficiency. Normal aortic diameters. Mildly thickened mitral valvular apparatus without inflow tract obstruction and only mild insufficiency. Pacing leads could be visualized traversing right heart structures. Minuscule (physiologic) pericardial fluid but ongoing left pleural effusion. Comparing the above test findings with 09/02/2019, there did not appear to be significant change. MTDD
--- NOTE | 2019-10-12 16:51 | IPN ---
DATE: 10/12/2019 Gerson's status is unchanged. She is just seen after being back from dialysis. She was very fatigued. PHYSICAL EXAM: VITAL SIGNS: Stable. LUNGS: Clear. HEART: Regular ABDOMEN: Soft and nontender. IMPRESSION: 1. Hypoglycemia. Patient's diabetes is under excessive control. Her last hemoglobin A1c was 5.1 and before that 5.9. She is having hypoglycemia and my impression is that she has significant gaps in the insulin she takes and when she should be taking it. In the past they have been adamant about continuing her U500 insulin and then using Basaglar with this on a sliding scale depending on her blood sugar and then she uses regular insulin as before meals and at bedtime coverage. Asking her to change this regimen in the past has been unsuccessful. Dr. Steiner is rounding on this patient tomorrow and his expertise and management on patient's U500 insulin. I will discuss the case with him homer. Hopefully he can come up with a regimen that Gerson and her will be agreeable to that will put her at less risk of hypoglycemia.
--- NOTE | 2019-10-12 18:44 | IPN ---
DATE: 10/12/2019 SUBJECTIVE: Gerson is seen and examined this morning in the hemodialysis unit receiving an additional dialysis treatment due to fluid overload. She offers no complaints. I discussed with her that her A1c was very low at 5.1% ,and she needs to cut back on her insulin at home. There have been no issues with her hemodialysis treatments. Temperature 97.8, pulse 77, respiratory rate 18, blood pressure 116/56, saturating 94% on room air. Review of intake and output yesterday shows she is net negative 1820. Weight in the bed scale today is 100.8 kg. General: The patient is seen in the hemodialysis unit receiving her treatment. Obese female in no apparent distress, interactive and conversational. Extraocular muscles are intact. Tongue is moist. Jugular veins cannot be assessed secondary to body habitus. Heart sounds are regular. There is 2+ leg edema bilaterally. Lungs show distant breath sounds, which are diminished. There is symmetric air movement. There are no audible crackles. Abdomen is soft, obese, and there is large pannus. The calciphylactic areas have dressings which were not removed. Extremities: There is a patent but immature fistula in the right forearm. There is 2+ edema in the legs. Neurologic: She is oriented times three, interactive, conversational, and at baseline mentation. Chest wall: There is a Perm-A-Cath present in the right chest wall, which is presently in use. Psychiatric: Appropriate mood and affect. LABORATORY DATA: Sodium 138, potassium 4.6, bicarbonate 27. A1c 5.1. Hemoglobin 8.1. T sat 18%. INPATIENT MEDICATIONS: Reviewed by myself. She continues on iron and Aranesp with dialysis. I see no change in her medications as compared to yesterday. PROBLEMS: 1. End-stage renal disease, on hemodialysis on a Thursday, , Thursday schedule. She is volume overloaded. She is receiving an extra treatment today for correction of her fluid status. She continues on an oral fluid restriction. We removed 3 liters yesterday, and we removed 2.5 liters today. Her next treatment will be on . Her Perm-A-Cath is in use. Her fistula is patent but immature. 2. Anemia related to chronic renal failure and iron deficiency and chronic inflammatory state. She is status post 1 unit packed red blood cells (PRBC) with dialysis yesterday. Hemoglobin came up to 8.1. She continues on Aranesp and Venofer with dialysis as well. 3. Diastolic congestive heart failure. She was fluid overloaded. Three liters were removed with dialysis yesterday. There was 2.5 liters removed with dialysis today. I would plan to dialyze her again tomorrow. She is on a 1500 mL fluid restriction. Echocardiogram is pending, as the patient has a history of pericardial effusion in the recent past, and I want to make sure that it has not reaccumulated 4. Insulin-dependent diabetes mellitus with hypoglycemia. It is due to excessive insulin use in the setting of chronic renal failure. Her A1c is only 5.1%. I would suggest to discontinue short-acting insulin and to decrease her long-acting insulin by 5-10 units, as she is high risk for recurrent and persistent hypoglycemia. 5. Atrial fibrillation, status post pacemaker. She is on low-dose Eliquis and rate controlled with beta donna and digoxin. 6. Calciphylaxis. She should continue to receive wound care while she is in the hospital. Recommend wound care telemedicine consult, and she continues on her chronic opioids for this exquisitely painful process.
--- NOTE | 2019-10-12 19:48 | CR ---
DATE OF CONSULTATION: 10/12/2019 [facility] TELE[facility]IC[facility] CONSULT CONSULT REQUESTED BY: Dr. Bahena. REGARDING: Dressing changes for calciphylaxis wounds. Patient well-known to the wound care center, a 69-year-old massively obese female, diabetic, on dialysis, with two large calciphylaxis wounds involving the right lateral pannus area and the left lateral upper thigh region. Treatment at this time in the clinic includes wound debridement, the application of Santyl a nickel thick, covered with plain alginate (no silver) with a covered dressing to be changed on an every other day basis. Wound dimensions have remained the same since last evaluated a week earlier. Both wounds are relatively clean with the exception of the central portion of the right pannus wound shows an area of necrosis which will require debridement when she is seen in our clinic next week. This is not a new finding This treatment should be continued, and as the patient was admitted not for her wound or renal issues, but for hypoglycemia, one would anticipate her discharge in the near future. She has an appointment scheduled at the wound care center and will be seen when discharge is accomplished. These wounds were evaluated last week and remain unchanged. The patient was admitted to the hospital for hypoglycemia and not for clinical or medical issues related to her chronic wounds NEW FINDING: Patient also has a stage II pressure injury involving her sacral area. This wound measures 3.5 cm x 1.5 cm with a wound depth of 0.2 cm the wound base is clean and the drainage is minimal serosanguineous This can also be treated with Santyl and a foam dressing. OSCAR
[2019-10-12] MEDS: GABAPENTIN 300 MG CAP PO SCH (21:00)
[2019-10-12] MEDS: LATANOPROST 0.005% OPHTH SOLN 2.5 ML OU SCH (21:01)
[2019-10-13] MEDS: oxyCODONE 5MG TAB PO SCH ×3 (00:36→09:58)
[2019-10-13 04:00] VITALS: BP 117/58
[2019-10-13] MEDS: SLF 3 ML SYR IV SCH (04:35)
[2019-10-13 06:05] LABS: HEMATOCRIT 30.7 % (36.0-47.0); MEAN CORPUSCULAR HEMOGLOBIN 28.8 pg (27.0-33.0); MEAN CORPUSCULAR HGB CONC 29.3 g/dl (32.0-36.5); MEAN CORPUSCULAR VOLUME 98.4 fl (80.0-96.0); PLATELET COUNT, AUTOMATED 115 10^3/uL (150-450); RED BLOOD COUNT 3.12 10^6/uL (4.00-5.40); WHITE BLOOD COUNT 10.7 10^3/uL (4.0-10.0)
[2019-10-13 06:26] LABS: CALCIUM LEVEL 8.4 MG/DL (8.8-10.2); CREATININE FOR GFR 3.28 MG/DL (0.55-1.30); GLOMERULAR FILTRATION RATE 14.9 (>45); POTASSIUM SERUM 4.1 MEQ/L (3.5-5.1)
[2019-10-13 08:00] VITALS: BP 107/58
[2019-10-13] MEDS: LACTOBACILLUS ACIDOPHILUS CAP (BACID) PO SCH (08:22)
[2019-10-13] MEDS: (RENVELA) SEVELAMER **CARBONate** 800 MG TAB PO SCH (08:22)
[2019-10-13] MEDS: ACETAMINOPHEN TAB 650MG DOSE (2X325MG) PO PRN (08:22)
[2019-10-13] MEDS: MONTELUKAST 10 MG TAB PO SCH (09:38)
[2019-10-13] MEDS: OCUVITE 1 TAB PO SCH (09:38)
[2019-10-13] MEDS: TAMSULOSIN 0.4 MG CAP PO SCH (09:38)
[2019-10-13] MEDS: APIXABAN 2.5 MG TAB (ELIQUIS) PO SCH (09:38)
[2019-10-13] MEDS: DOCUSATE SODIUM 100 MG CAP PO SCH (09:38)
[2019-10-13] MEDS: PANTOPRAZOLE 40MG TAB (PROTONIX) PO SCH (09:38)
[2019-10-13] MEDS: METOPROLOL SUCC *XL* 25MG TAB (TopROL *XL*) PO SCH (09:39)
[2019-10-13] MEDS: allopurinoL 100 MG TAB PO SCH (09:39)
[2019-10-13] MEDS: CETIRIZINE (ZyrTEC) 10 MG TAB PO SCH (09:39)
[2019-10-13] MEDS: FLUTICASONE PROP 0.05% NASAL SPRAY 16 GM (FLONASE) NARES SCH (09:40)
[2019-10-13] MEDS: SANTYL OINT 30GM TOP SCH (09:40)
--- NOTE | 2019-10-13 17:29 | IPN ---
DATE: 10/13/2019 SUBJECTIVE: The patient is seen and examined this morning sitting out of bed to the chair. She is discharge pending. She is due for dialysis this afternoon. She denies any acute overnight events, tolerated her dialysis treatment well yesterday with 2500 mL of fluid removed. Vital signs: Temperature 97.6, pulse 82, respiratory rate 19, blood pressure 107/58, saturating 97% on room air. Review of intake and output (I and Os) yesterday shows net negative 1870. Weight on the bed scale today is 99.4 kg. General: The patient is seen awake, alert, oriented, interactive, conversational; in no apparent distress. Extraocular muscles are intact and moist. Jugular veins cannot be assessed secondary to body habitus. Heart sounds are regular. There is 2+ leg edema, which is improved from prior. Lungs show distant breath sounds which are diminished, but there is no crackle or rale. There is symmetric air movement. Abdomen is soft, obese. There is a large pannus. The calciphylactic areas were not examined. Extremities: There is a patent, but immature fistula in the right forearm. There is 2+ edema in the legs. There is a Perma-Cath in the right chest wall with a dressing. Neurologic: She is oriented times three, interactive and conversational. Psychiatric: Appropriate mood and effect. LABS: White count 10.7, hemoglobin 9.0, platelet 115. Sodium 136, potassium 4.1. INPATIENT MEDICATIONS: Reviewed by myself and no change from prior. PROBLEMS: 1. End-stage renal disease on hemodialysis on Thursday, , Thursday schedule. She is a volume overloaded. She was dialyzed on Thursday and Thursday. She is due for dialysis in the outpatient unit this afternoon; that will be three treatments in a row. We removed 5.5 liters while she was in the hospital. She is encouraged to comply with fluid restriction as an outpatient. Her Perma-Cath is in good use. Her fistula is patent but immature. Electrolytes are acceptable. 2. Anemia related to chronic renal failure iron deficiency and chronic inflammatory state. She received 1 unit of packed red blood cell on this admission. Hemoglobin is improved. She continues on Aranesp and Venofer with dialysis as well. Goal hemoglobin 10-11. 3. Decompensated diastolic congestive heart failure. She had [id number] hemodialysis. We took off 5.5 liters the past 2 days. She is due for hemodialysis again this afternoon in the outpatient unit. Continue with oral fluid restriction. Echocardiogram was reviewed with no recurrent pericardial effusion. 4. Insulin dependent diabetes mellitus with hypoglycemia. It is due to excessive insulin in the setting of chronic renal failure. A1c was only 5.1. Primary team has cut back on her insulin. 5. Atrial fibrillation. She continues on low-dose Eliquis and is rate controlled with beta donna and digoxin. 6. Calciphylaxis. She continues with care through the wound center and chronic opioids. DISPOSITION The patient is stable for discharge from a nephrology point of view with followup for an outpatient hemodialysis treatment this afternoon.
--- NOTE | 2019-10-13 19:31 | DSES ---
DATE OF ADMISSION: 10/10/2019 DATE OF DISCHARGE: 10/13/2019 HISTORY: This is a 69-year-old female patient who presented to [facility] emergency room (ER) after being found hypoglycemic. The patient reports that her oral intake has been poor secondary to poor appetite recently. She was admitted to the hospital with hypoglycemia, altered mental status, somnolent and disoriented. Her mental status has improved. She was given D5 normal saline with fingerstick blood sugars every two hours until her hypoglycemia resolved. All insulin was held. This has not been resumed as an inpatient. She was dialyzed for fluid overload with management per nephrology. Otherwise, remained medically stable. At this point, she is going to be returned home to discontinue all her at home insulin, including U500 and Basaglar. She will start on Apidra. She will start at 2 units for blood sugar greater than 151 and increase by 2 units for elevation of every 50 in blood sugar. The patient's sliding scale has been reviewed with her. It has also been reviewed with nursing to revisit this. I have kept a copy of this, which will be scanned in her chart in the outpatient setting. She is not to take any before bed. This is just before meals. She is to call her primary care provider on Thursday to report what her blood sugars have been before meals in the event that her Basaglar long-acting insulin needs to be resumed. I talked to the patient about a consistent carbohydrate diet as well as a renal diet, as she is an end-stage renal patient. DISCHARGE DIAGNOSES: Includes: 1. Hypoglycemia with diabetes mellitus type 2 with end-stage renal disease. 2. Acute on chronic diastolic congestive heart failure. 3. Atrial fibrillation. 4. Calciphylaxis with wounds. DISCHARGE MEDICATIONS: Include: - Apidra sliding scale 2 to 12 units three times daily - acetaminophen 650 mg every 6 hours as needed for pain - albuterol sulfate nebulizer 2.5 mg inhaled every 8 hours as needed shortness of breath - albuterol inhaler 2 puffs inhaled every 4 hours as needed for shortness of breath - allopurinol 100 mg daily - ammonium lactate 1 application topically twice daily as needed for itching - Eliquis 2.5 mg twice a day - cetirizine 10 mg daily - digoxin 125 mcg 3 times weekly - Colace 100 mg twice a day - Flonase nasal spray daily - Neurontin 300 mg before bed - Letty-Bid caplet 1 caplet by mouth with meals - Dilantin one drop to each eye before bed - metoprolol succinate 25 mg by mouth daily - montelukast 10 mg daily - Zofran 8 mg sublingual three times a day as needed for nausea, vomiting - oxycodone 10 mg by mouth every 4 hours - pantoprazole 40 mg daily - Renvela 800 mg with meals - Flomax 0.4 mg by mouth daily - PreserVision 1 tablet by mouth twice a day DISCHARGE PLAN: Follow up with her primary care provider (PCP) next week. Activity should be as tolerated. Diet is consistent carbohydrate 2 gram low sodium. She will check her fingerstick blood sugars three times daily. She will call the office with these on 10/18/2019.
== END 2019-10-13 12:44 | disposition home health service (06) | DRG 638 ==
LOC: M ED 15:57 → EDBD 15:57 → M ED INP 20:41 → ENRESERVDT 21:43 → ENRESERVTM 21:43 → M PCU 22:40
PROVIDERS: ADMIT Internal Medicine; ATTEND Family Medicine
PROC: 5A1D70Z Performance of Urinary Filtration, Intermittent, Less than 6 Hours Per Day (ICD-10-PCS; principal; 2019-10-11)
PROC: 30233N1 Transfusion of Nonautologous Red Blood Cells into Peripheral Vein, Percutaneous Approach (ICD-10-PCS; 2019-10-11)
DX: E11.649 Type 2 diabetes mellitus with hypoglycemia without coma (principal); I50.32 Chronic diastolic (congestive) heart failure; I13.2 Hypertensive heart and chronic kidney disease with heart failure and with stage 5 chronic kidney disease, or end stage renal disease; E66.2 Morbid (severe) obesity with alveolar hypoventilation; Z68.41 Body mass index [BMI] 40.0-44.9, adult; E11.22 Type 2 diabetes mellitus with diabetic chronic kidney disease; N18.6 End stage renal disease; I48.91 Unspecified atrial fibrillation; D63.1 Anemia in chronic kidney disease; K76.0 Fatty (change of) liver, not elsewhere classified; E11.42 Type 2 diabetes mellitus with diabetic polyneuropathy; J44.9 Chronic obstructive pulmonary disease, unspecified; L89.152 Pressure ulcer of sacral region, stage 2; E83.59 Other disorders of calcium metabolism; L40.9 Psoriasis, unspecified; Z99.2 Dependence on renal dialysis; Z79.01 Long term (current) use of anticoagulants; Z79.4 Long term (current) use of insulin; Z79.899 Other long term (current) drug therapy; Z79.891 Long term (current) use of opiate analgesic; Z88.7 Allergy status to serum and vaccine; Z91.041 Radiographic dye allergy status; Z91.048 Other nonmedicinal substance allergy status; Z95.810 Presence of automatic (implantable) cardiac defibrillator

== ENCOUNTER 2019-11-05 13:14 | Emergency (ER) | payer MEDICARE ==
[~2019-11-05] VITALS: Ht 154.9 cm; Wt 98.0 kg
[~2019-11-05 13:14] MED LIST changes: +ACET1TAB55 PO; -MONT10TA2; -MONT10TA2 PO; +MONT10TA4; +MONT10TA4 PO; +OCUVTAB4 PO; +ONDA8TAB8 SL; +OXYC10TA12 PO; +TOPR25TA PO
[2019-11-05 14:01] LABS: BASO % 0.4 % (0.0-1.0); EOS # 0.4 10^3/uL (0.0-0.5); EOS % 5.1 % (0.0-3.0); HEMATOCRIT 27.7 % (36.0-47.0); HEMOGLOBIN 8.4 g/dl (12.0-15.5); LYMPH # 0.6 10^3/uL (1.5-5.0); LYMPH % 8.2 % (24.0-44.0); MEAN CORPUSCULAR HEMOGLOBIN 29.2 pg (27.0-33.0); MEAN CORPUSCULAR HGB CONC 30.3 g/dl (32.0-36.5); MEAN CORPUSCULAR VOLUME 96.2 fl (80.0-96.0); MONO # 0.7 10^3/uL (0.0-0.8); MONO % 10.2 % (0.0-5.0); NEUTROPHILS # 5.3 10^3/uL (1.5-8.5); NEUTROPHILS % 75.5 % (36.0-66.0); PLATELET COUNT, AUTOMATED 197 10^3/uL (150-450); RED BLOOD COUNT 2.88 10^6/uL (4.00-5.40)
[2019-11-05] MEDS ORDERED: NOVOINJ3 (14:15)
[2019-11-05] MEDS ORDERED: BASA100I (14:15)
[2019-11-05 14:27] LABS: INFLUENZA A AMPLIFICATION NEGATIVE (NEGATIVE); INFLUENZA B AMPLIFICATION NEGATIVE (NEGATIVE)
--- NOTE | 2019-11-05 14:35 | REP ---
Portable chest, semi upright AP and lateral views: Comparisons are the PA and lateral chest dated 08/21/[address] of 08/15/2019. On the comparison chest CT there was a large pericardial effusion and bilateral pleural effusions. On the current study. Cardiac size is enlarged and is increased from the 08/21/2019 portable study. There are questionable pleural effusions, this could be artifact from semi upright positioning. CT might be worthwhile for confirmation. There is a triple lead biventricular pacemaker, unchanged. There is a right IJ dual lumen central venous catheter with the tip in the superior vena cava, unchanged. There is a small air-fluid level behind the heart, compatible with hiatal hernia. Impression: Cardiomegaly. Questionable pleural effusions. Electronically Signed by Jose Raya MD 11/05/2019 02:26 P
[2019-11-05 14:48] LABS: ALBUMIN 2.6 GM/DL (3.2-5.2); ALT/SGPT 14 U/L (12-78); BILIRUBIN,DIRECT 0.3 MG/DL (0.0-0.2); BILIRUBIN,TOTAL 0.5 MG/DL (0.2-1.0); BLOOD UREA NITROGEN 39 MG/DL (7-18); CALCIUM LEVEL 8.1 MG/DL (8.8-10.2); CARBON DIOXIDE LEVEL 28 MEQ/L (21-32); CHLORIDE LEVEL 103 MEQ/L (98-107); CK-MB VALUE MASS 2.5 NG/ML (<3.6); CPK CREATINE PHOSPHOKINASE 86 U/L (26-192); CREATININE FOR GFR 5.13 MG/DL (0.55-1.30); DIGOXIN LEVEL 0.3 NG/ML (0.5-2.0); GLOMERULAR FILTRATION RATE 8.9 (>45); GLUCOSE, FASTING 119 MG/DL (70-100); MB/CK RELATIVE INDEX 2.91 (< OR =4); POTASSIUM SERUM 4.8 MEQ/L (3.5-5.1); SODIUM LEVEL 136 MEQ/L (136-145); TOTAL PROTEIN 6.6 GM/DL (6.4-8.2); TROPONIN I < 0.02 NG/ML (< 0.10)
[2019-11-05] MEDS ORDERED: oxyCODONE 5MG TAB PO ONE (15:00)
[2019-11-05 16:17] VITALS: O2SAT 96
[2019-11-05 16:32] VITALS: BP 121/79
--- NOTE | 2019-11-06 20:48 | ECGEPIP ---
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
--- NOTE | 2019-11-07 09:44 | ED PDOC ---
Post-Departure Follow-Up sabine zuñiga faxed formal report of cxr for fu Martin Young MD Nov 07, 2019 09:44
== END 2019-11-05 16:33 | disposition home or self-care (01) ==
LOC: EDBD 13:14 → M ED 13:14
DX: R55 Syncope and collapse (principal); E11.9 Type 2 diabetes mellitus without complications; I12.9 Hypertensive chronic kidney disease with stage 1 through stage 4 chronic kidney disease, or unspecified chronic kidney disease; N18.9 Chronic kidney disease, unspecified; J45.909 Unspecified asthma, uncomplicated; I48.91 Unspecified atrial fibrillation; G47.33 Obstructive sleep apnea (adult) (pediatric); E55.9 Vitamin D deficiency, unspecified; K27.9 Peptic ulcer, site unspecified, unspecified as acute or chronic, without hemorrhage or perforation; E66.9 Obesity, unspecified; Z95.0 Presence of cardiac pacemaker; Z79.899 Other long term (current) drug therapy; Z79.4 Long term (current) use of insulin; Z79.01 Long term (current) use of anticoagulants; Z88.7 Allergy status to serum and vaccine; Z91.041 Radiographic dye allergy status; Z91.048 Other nonmedicinal substance allergy status

== ENCOUNTER → 2019-11-09 | Outpatient (CLI) | payer MEDICARE ==
[~2019-11-09] MED LIST changes: +BASA100I; +NOVOINJ3
--- NOTE | 2019-11-09 18:41 | REP ---
CERVICAL SPINE SERIES: Eight views of the cervical spine are performed. There is no compression fracture. There is reversal of the normal cervical lordosis. There is no significant subluxation with flexion or extension, with limited motion. There is moderate spurring anteriorly at C4 with mild spurring of C5 through C7. There is slight disc space narrowing at C4-5, C5-6 and C6-7. There is mild diffuse narrowing and sclerosis at the posterior facet joints with associated spurring. I do not see radiographic evidence of significant neural foraminal narrowing. IMPRESSION: Degenerative disc changes as above, as well as diffuse degenerative change at the posterior facet joints. Reversal of normal cervical lordosis. Electronically Signed by Jose Allred MD 11/10/2019 10:27 A
--- NOTE | 2019-11-09 18:43 | REP ---
THORACIC SPINE: AP and lateral views of the thoracic spine are performed. No compression fracture is seen. There is normal thoracic kyphosis. There is moderate diffuse spurring. There is mild disc space narrowing and subchondral sclerosis at all levels. Posterior elements are intact. There is slight curvature toward the right. IMPRESSION: Diffuse degenerative changes without fracture or dislocation. Electronically Signed by Jose Allred MD 11/10/2019 10:27 A
== END ==
LOC: M ADAMS 14:18
PROVIDERS: ATTEND Physician Assistant
DX: M50.321 Other cervical disc degeneration at C4-C5 level (principal); M50.322 Other cervical disc degeneration at C5-C6 level; M48.02 Spinal stenosis, cervical region; M25.78 Osteophyte, vertebrae; M79.2 Neuralgia and neuritis, unspecified
CPT/HCPCS: 72050; 72072; G0463